=== PATIENT | male | born 1955 | race Caucasian/White ===

== ENCOUNTER 2018-04-07 08:07 | Outpatient (CLI) | payer BC, SELFPAY ==
[2018-04-07 09:18] LABS: Cholesterol 186 mg/dL (50-200); Glucose 139 mg/dL (70-100); HDL Cholesterol 60 mg/dL (40-60); LDL CHOLESTEROL 113 mg/dL (<100); TSH (W/Ref FT4) 3.32 uIU/mL (0.358-3.74); Triglyceride 106 mg/dL (30-150)
== END 2018-04-07 08:27 ==
PROVIDERS: PCP Family Medicine; Visit Provider Family Medicine
DX: R73.09 Other abnormal glucose (principal); E78.5 Hyperlipidemia, unspecified; E03.9 Hypothyroidism, unspecified
CPT/HCPCS: 36415; 80061; 82947; 83721; 84443

== ENCOUNTER 2018-07-14 09:15 | Outpatient (CLI) | payer BC, SELFPAY ==
[2018-07-14 10:19] LABS: Abs Immature Grans 0.02 k/cumm (0.0-0.09); Absolute Basophil Count 0.03 k/cumm (0.0-0.2); Absolute Eosinophil Count 0.07 k/cumm (0.0-0.7); Absolute Lymphocyte Count 1.11 k/cumm (1.2-3.4); Absolute Monocyte Count 0.36 k/cumm (0.11-0.7); Absolute Neutrophil Count 2.25 k/cumm (1.2-6.7); Basophils % 0.8; Eosinophils % 1.8; HCT 46.4 % (40.0-50.0); HGB 16.2 g/dL (13.5-17.5); Immature Grans % 0.5; Lymphocytes % 28.9; Mean Corp. HGB Concentration 34.9 g/dL (32.0-36.0); Mean Corpuscular Hemoglobin 31.4 pg (27.0-33.0); Mean Corpuscular Volume 89.9 fL (80-95); Mean Platelet Volume 11.1 fL (8.0-11.0); Monocytes % 9.4; Neutrophils % 58.6; Platelet Count 209 x1000/uL (130-400); RBC 5.16 m/cumm (4.50-6.00); RBC Distribution Width 13.3 % (11.8-14.1); White Blood Cell Count 3.84 k/cumm (4.4-10.8)
[2018-07-14 11:17] LABS: ESR 9 MM/HR (1-20)
== END 2018-07-14 09:35 ==
PROVIDERS: PCP Family Medicine; Visit Provider Family Medicine
DX: L04.9 Acute lymphadenitis, unspecified (principal)
CPT/HCPCS: 36415; 85652; 85025

== ENCOUNTER 2018-10-03 00:44 | Outpatient (CLI) | payer BC, SELFPAY ==
--- NOTE | 2018-10-03 14:20 | DI.MRI_ITS ---
SYMPTOMS/DIAGNOSIS: BACK PAIN, M54.9, NEW RIGHT MID TO LOWE BACK PAIN RADIATING AROUND TO FLANK MRI OF THE THORACIC SPINE: T1, T2, STIR and T2 3D sagittal and T2 axial sequences were performed. The cord signal is normal throughout. There are tiny central disc protrusions at T5-6, T6-7 and T7-8. There are small endplate osteophytes mainly projecting anterolaterally. There are facet degenerative changes. No significant central canal stenosis. There appears to be some neural foraminal narrowing secondary to facet encroachment at T6-7 and T7-8. No suspicious bony abnormalities are seen. There are a few small hemangiomas. IMPRESSION: Degenerative disc changes and facet degenerative changes with neural foraminal narrowing in the mid thoracic spine. No disc herniation is seen.
== END 2018-10-03 01:04 ==
PROVIDERS: PCP Family Medicine; Visit Provider Family Medicine
DX: M54.5 Low back pain (principal); M51.17 Intervertebral disc disorders with radiculopathy, lumbosacral region
CPT/HCPCS: 72146

== ENCOUNTER 2018-11-10 09:27 | Outpatient (CLI) | payer BC, SELFPAY ==
[2018-11-10 10:18] LABS: Abs Immature Grans 0.01 k/cumm (0.0-0.09); Absolute Basophil Count 0.04 k/cumm (0.0-0.2); Absolute Eosinophil Count 0.12 k/cumm (0.0-0.7); Absolute Lymphocyte Count 1.36 k/cumm (1.2-3.4); Absolute Monocyte Count 0.45 k/cumm (0.11-0.7); Absolute Neutrophil Count 2.92 k/cumm (1.2-6.7); Basophils % 0.8; Eosinophils % 2.4; HCT 48.6 % (40.0-50.0); HGB 17.2 g/dL (13.5-17.5); Immature Grans % 0.2; Lymphocytes % 27.8; Mean Corp. HGB Concentration 35.4 g/dL (32.0-36.0); Mean Corpuscular Hemoglobin 31.7 pg (27.0-33.0); Mean Corpuscular Volume 89.7 fL (80-95); Mean Platelet Volume 10.5 fL (8.0-11.0); Monocytes % 9.2; Neutrophils % 59.6; Platelet Count 195 x1000/uL (130-400); RBC 5.42 m/cumm (4.50-6.00); RBC Distribution Width 13.6 % (11.8-14.1)
== END 2018-11-10 09:47 ==
PROVIDERS: PCP Family Medicine; Visit Provider Family Medicine
DX: D72.819 Decreased white blood cell count, unspecified (principal)
CPT/HCPCS: 36415; 85025

== ENCOUNTER 2019-11-27 03:32 | Outpatient (CLI) | payer BC, SELFPAY ==
[2019-11-27 12:20] LABS: Hemoglobin A1C 5.5 % (3.8-5.6)
[2019-11-27 13:52] LABS: Anion Gap 7.6 mmol/L (3-11); BUN 16 mg/dL (7-18); CO2 30.4 mmol/L (21.0-32.0); CREATININE 1.03 mg/dL (0.70-1.30); Calcium 9.2 mg/dL (8.5-10.1); Chloride 104 mmol/L (98-107); Glucose 126 mg/dL (74-106); Potassium 5.2 mmol/L (3.5-5.1); Sodium 142 mmol/L (136-145)
== END 2019-11-27 03:52 ==
PROVIDERS: PCP Family Medicine; Visit Provider Family Medicine
DX: R73.03 Prediabetes (principal); Z00.00 Encounter for general adult medical examination without abnormal findings
CPT/HCPCS: 36415; 80048; 83036

== ENCOUNTER 2020-04-01 10:40 | Outpatient (REF) | payer BC, SELFPAY ==
[2020-04-01 20:53] LABS: Anion Gap 4.4 mmol/L (3-11); BUN 17 mg/dL (7-18); CO2 31.6 mmol/L (21.0-32.0); CREATININE 1.08 mg/dL (0.70-1.30); Calcium 9.1 mg/dL (8.5-10.1); Chloride 106 mmol/L (98-107); Glucose 130 mg/dL (74-106); Magnesium 1.8 mg/dL (1.8-2.4); Potassium 5.1 mmol/L (3.5-5.1); Sodium 142 mmol/L (136-145)
[2020-04-01 20:54] LABS: Hemoglobin A1C 5.8 % (<5.7)
[2020-04-01 21:51] LABS: Vitamin B12 278 pg/mL (193-986)
== END 2020-04-01 11:00 ==
LOC: NCHCN 10:40
PROVIDERS: PCP Family Medicine; Visit Provider Family Medicine
DX: E87.5 Hyperkalemia (principal); R73.03 Prediabetes; K21.9 Gastro-esophageal reflux disease without esophagitis
CPT/HCPCS: 80048; 82607; 83036; 83735

== ENCOUNTER 2020-04-18 22:33 | Outpatient (REF) | payer BC, SELFPAY | END 2020-04-18 22:53 | LOC: NCHCN 22:33 | PROVIDERS: PCP Family Medicine; Visit Provider Physician Assistant | DX: M79.671 Pain in right foot (principal); L08.9 Local infection of the skin and subcutaneous tissue, unspecified | CPT/HCPCS: 87077; 87070; 87205 ==

== ENCOUNTER 2020-05-08 03:59 | Emergency (ER) | payer BC, SELFPAY ==
--- NOTE | 2020-05-08 04:00 | DI.CT_ITS ---
EXAM: CT RENAL COLIC WO CLINICAL HISTORY: right flank pain. TECHNIQUE: Imaging Protocol: Axial computed tomography images with coronal and sagittal reformatted images were created and reviewed. CONTRAST MATERIAL: Noncontrast COMPARISON: CT ABD PELVIS WITH CONTRAST from 08/07/2012 FINDINGS: ABDOMEN: Lung Bases: Stable tiny nodule right lower lobe. Liver: Mildly enlarged. Hepatic steatosis.. No measurable mass. Gallbladder and biliary tract: No radiodense calculus or dilation. Pancreas: Normal density, no abnormal calcifications or inflammatory process. Spleen: Normal. Kidneys: Normal size, contour and axis. There is mild to moderate right hydronephrosis secondary to a tiny stone in the distal right ureter. No additional calculi are identified. No masses seen. Adrenal glands: No masses seen. Abdominal Aorta: Abdominal portion non-dilated. Mild atherosclerotic changes. PELVIS: Bladder: Nearly empty, no gross wall thickening. Bowel: No obstruction or bowel wall thickening. Scattered diverticula. Normal appendix. Peritoneal cavity: No ascites, collection or mesenteric inflammatory response. Bones: Degenerative changes in the spine greatest at L4-5 and L5-S1. Fatty containing bilateral inguinal hernias. IMPRESSION: Mild to moderate right hydronephrosis secondary to a 1-2 millimeter stone in the distal right ureter. RADIATION DOSE DELIVERED: 1,183.78mGy.cm Total DLP DATA REPOSITORY: All CT scans at this facility are submitted to the National Radiology Data Registry (NRDR) Dose Index Registry (DIR) with the [employer] (A[employer]). RADIATION OPTIMIZATION: All CT scans at this facility use at least one of these dose optimization te chniques: automated exposure control; mA and/or kV adjustment per patient size (includes targeted exa ms where dose is matched to clinical indication); or iterative reconstruction.
[2020-05-08 04:02] VITALS: BP 199/105; PULSE 55; RESP 20; TEMP 36.2; O2SAT 96
--- NOTE | 2020-05-08 04:06 | W.ED.GENAD ---
Discharge Plan Disposition Patient Disposition: HOME Condition: Good Discharge Details Clinical Impression: Calculus of right kidney, Esophageal thickening Primary Care Provider: Ilya Medina ED Provider: Danny Coles Home Meds and New Rx's Prescriptions: New tamsulosin [Flomax] 0.4 mg capsule 0.4 mg PO DAILY Qty: 7 RF: 0 Continued pravastatin 20 MG tablet 20 mg PO DAILY RF: 0 Combigan 5 ML drops 1 drp Ophthalmic Q12H PRN RF: 0 Discharge Instructions Instructions: Kidney Stones (ED) Additional Instructions: You have a 2 mm kidney stone. It is almost fully out. I expected to be out in a few hours. Please take 800 mg of ibuprofen and 1000 mg of Tylenol every 6 hours as needed for pain. Please take the Flomax until your pain returns. If you notice any worsening of your symptoms, or any new symptoms such as vomiting, diarrhea, fever, chills, shortness of breath, chest pain, numbness, weakness, or fainting , please return immediately to the emergency department for reevaluation. Please follow up with your primary care provider as soon as possible for reassessment and reevaluation. As always, it was a pleasure participating in your medical care today. Referrals: Ilya Medina [Primary Care Provider] - Medical Decision Making man with history of hypercholesterol, presents today for evaluation of right flank pain. 1-2 hours ago he awoke with sudden onset right flank pain that radiated to his groin. He describes it as a sharp. He denies any chest pain or shortness of breath. He denies any hematuria or dysuria.. He did have a bowel movement this did not change his symptoms overall. He denies any vomiting or diarrhea. He denies any history of kidney stones. He has no other complaints. Signs and symptoms are concerning for kidney stone. Will give morphine, gently rehydrate, CT scan for further assessment, monitor closely and reassess. 7:10 AM Patient's pain was resolved, he is feeling much better, CT scan shows a small 2 x 2 millimeter calculus notably distal, urinalysis shows no evidence of infection, laboratory work-up is benign, no white count bandemia or left shift or decrease in renal function. Patient feeling much better. He was given a dose of Flomax here. Patient appropriate for discharge for his kidney stone at this time. Of note CT scan does show wall thickening of the distal esophagus, I did discuss with the patient, and he does have a history of GERD. Likely peristalsis, however he denies any pain in that area currently. I did recommend to him follow-up with his family doctor for potential referral for EGD. Discussed red flags which to return. I have extensively reviewed the treatment plan and discharge instructions with the patient. I have addressed all patient concerns at this time. The patient was made aware of what symptoms to monitor for that would warrant a return to the emergency department. Discussed the plan with the patient, they demonstrate verbal understanding and agreement with our assessment and plan at this time. FINDINGS: Lungs: 4 mm nodule inferolaterally in right lower lobe. Mediastinal space: Thickening of wall in distal esophagus. Liver: Normal. No mass. Gallbladder and bile ducts: Normal. No calcified stones. No ductal dilation. Pancreas: Normal. No ductal dilation. Spleen: Normal. No splenomegaly. Adrenal glands: Normal. No mass. Kidneys and ureters: 2 mm radiopaque calculus in distal right ureter. No radiopaque renal calculi. Mild to moderate right hydronephrosis.There is bilateral perinephric stranding which is nonspecific. Stomach and bowel: Unremarkable. No obstruction. No mucosal thickening. Scattered colonic diverticula. Appendix: Normal appendix Intraperitoneal space: No free intraperitoneal gas. Vasculature: Unremarkable. No abdominal aortic aneurysm. Lymph nodes: No adenopathy. Urinary bladder: Unremarkable as visualized. Reproductive: Unremarkable as visualized. Bones/joints: The spine demonstrates mild degenerative changes at multiple levels. Soft tissues: Inguinal canals are distended with fat. IMPRESSION: 1. Obstructing calculus in distal right ureter. 2. Wall thickening distal esophagus which could be due to peristalsis at the time of scan, diffuse infiltrating process, inflammation or infection. Follow-up recommended. Thank you for allowing us to participate in the care of your patient. Dictated and Authenticated by: Hao Dozier DO 05/08/2020 5:17 AM Eastern Time ([place] & [place]) HPI General Date/Time Provider Initiated Documentation: 05/08/20 04:01. HPI Narrative: man with history of hypercholesterol, presents today for evaluation of right flank pain. 1-2 hours ago he awoke with sudden onset right flank pain that radiated to his groin. He describes it as a sharp. He denies any chest pain or shortness of breath. He denies any hematuria or dysuria.. He did have a bowel movement this did not change his symptoms overall. He denies any vomiting or diarrhea. He denies any history of kidney stones. He has no other complaints. Related Data Home Medications Medication Instructions Recorded Confirmed Combigan 1 drp OPHTHALMIC Q12H PRN drp 01/13/15 05/08/20 pravastatin 20 mg PO DAILY tab-cap 01/13/15 05/08/20 tamsulosin [Flomax] 0.4 mg PO DAILY #7 cap 05/08/20 Previous Rx's Medication Instructions Recorded tamsulosin [Flomax] 0.4 mg PO DAILY #7 cap 05/08/20 Allergies Allergy/AdvReac Type Severity Reaction Status Date / Time No Known Drug Allergies Allergy Unverified 05/08/20 04:06 Review of Systems All systems reviewed & are unremarkable except as noted in HPI and below PFSH Social History Smoking risk assessment performed?: No Alcohol Intake: never Substance use type: does not use Do you feel safe at home: Yes Do you feel safe in your relationship?: Yes Exam Narrative Exam Narrative: 1.Const: Well-nourished, Well-developed, appearing stated age 2.Eyes: PERRL, no conjunctival injection, and symmetrical lids. 3.ENT: Atraumatic external nose and ears. Moist MM. Neck: Symmetric, trachea midline, No thyromegaly. 4.CVS: +S1/S2, No murmurs or gallops. Peripheral pulses 2+ and equal in all extremities. Brisk capillary refill in all extremities. 5.RESP: Unlabored respiratory effort. Clear to auscultation bilaterally. No wheezes rales or rhonchi 6.GI: Soft, Nontender/Nondistended, No hepatosplenomegaly. No guarding or rebound. No signs of an acute surgical abdomen. No worsening of pain with right CVA with palpation. Genital exam was performed, no genital tenderness or signs of testicular torsion. 7.MSK: Normocephalic/Atraumatic, Extremities w/o deformity or ttp No cyanosis or clubbing, Normal movement of all extremities 8.Skin: Warm, Dry. No rashes or lesions. 9.Neuro: crystal gazer II-XII grossly intact. Sensation grossly intact, no focal neurologic deficits. 10.Psych: (AAO) x3. Appropriate mood and affect
[2020-05-08] MEDS: Normal Saline 500 ML IV ×2 (04:14→05:44)
[2020-05-08] MEDS: Tamsulosin 0.4 MG CAPCR PO (04:14)
[2020-05-08 04:19] LABS: Abs Immature Grans 0.07 10^3/uL (0.0-0.06); Absolute Basophil Count 0.07 10^3/uL (0.0-0.2); Absolute Eosinophil Count 0.26 10^3/uL (0.0-0.7); Absolute Lymphocyte Count 3.27 10^3/uL (1.2-3.4); Absolute Monocyte Count 0.84 10^3/uL (0.1-0.8); Absolute Neutrophil Count 3.51 10^3/uL (1.2-6.7); Basophils % 0.9; Eosinophils % 3.2; HCT 46.5 % (40.0-50.0); HGB 16.6 g/dL (13.5-17.5); Immature Grans % 0.9; Lymphocytes % 40.8; MCH 32.3 pg (27.0-33.0); MCHC 35.7 % (32.0-36.0); MCV 90.5 fL (80-95); MPV 10.3 fL (8.0-11.0); Monocytes % 10.5; Neutrophils % 43.7; Nucleated RBC 0 %; Platelet Count 240 10^3/uL (130-400); RBC 5.14 10^6/uL (4.36-5.78); RDW 12.3 % (11.8-14.1); RDW-SD 40.2 fL; WBC 8.02 10^3/uL (4.4-10.8)
[2020-05-08 04:30] LABS: ALT 39 U/L (16-63); AST 20 U/L (15-37); Albumin 3.8 g/dL (3.4-5.0); Alkaline Phosphatase 96 U/L (46-116); BUN 16 mg/dL (7-18); Bilirubin, Total 0.8 mg/dL (0.2-1.0); CREATININE 1.28 mg/dL (0.70-1.30); Calcium 8.6 mg/dL (8.5-10.1); Chloride 105 mmol/L (98-107); Estimated GFR 56.76 (mL/min/1.73m2); Glucose 161 mg/dL (74-106); Potassium 3.8 mmol/L (3.5-5.1); Sodium 143 mmol/L (136-145); Total Protein 6.9 g/dL (6.4-8.2)
[2020-05-08] MEDS: HYDROmorphone 2 MG/ML VIAL 1 MG IVP ×3 (04:45→07:21)
[2020-05-08] MEDS: Ondansetron 4 MG/2 ML VIAL IVP (04:45)
[2020-05-08] MEDS: Ketorolac 30 MG/ML VIAL IVP (05:06)
--- NOTE | 2020-05-08 05:17 | DI.VRAD_ITS ---
Addendum created by Hao Dozier DO on 05/08/2020 5:20:10 AM EST: Noted but not mentioned in initial report, there is a 1 cm fat attenuation lesion anteriorly in right interpolar cortex consistent with an angiomyolipoma. Initial report created on 05/08/2020 5:17:32 AM EST: PROCEDURE INFORMATION: Exam: CT Abdomen And Pelvis Without Contrast Exam date and time: 05/08/2020 4:07 AM Age: 64 years old Clinical indication: Abdominal pain; Patient HX: Right flank pain TECHNIQUE: Imaging protocol: Computed tomography of the abdomen and pelvis without contrast. COMPARISON: US ABDOMEN ULTRASOUND (P) 02/05/2014 3:27 PM FINDINGS: Lungs: 4 mm nodule inferolaterally in right lower lobe. Mediastinal space: Thickening of wall in distal esophagus. Liver: Normal. No mass. Gallbladder and bile ducts: Normal. No calcified stones. No ductal dilation. Pancreas: Normal. No ductal dilation. Spleen: Normal. No splenomegaly. Adrenal glands: Normal. No mass. Kidneys and ureters: 2 mm radiopaque calculus in distal right ureter. No radiopaque renal calculi. Mild to moderate right hydronephrosis.There is bilateral perinephric stranding which is nonspecific. Stomach and bowel: Unremarkable. No obstruction. No mucosal thickening. Scattered colonic diverticula. Appendix: Normal appendix. Intraperitoneal space: No free intraperitoneal gas. Vasculature: Unremarkable. No abdominal aortic aneurysm. Lymph nodes: No adenopathy. Urinary bladder: Unremarkable as visualized. Reproductive: Unremarkable as visualized. Bones/joints: The spine demonstrates mild degenerative changes at multiple levels. Soft tissues: Inguinal canals are distended with fat. IMPRESSION: 1. Obstructing calculus in distal right ureter. 2. Wall thickening distal esophagus which could be due to peristalsis at the time of scan, diffuse infiltrating process, inflammation or infection. Follow-up recommended. Dictated and Authenticated by: Hao Dozier MD. Ordering:GLENN Delgado MD
[2020-05-08 05:44] VITALS: BP 144/84; PULSE 64; RESP 16; O2SAT 100
[2020-05-08 06:45] LABS: Bilirubin Negative (Negative); Blood Large (Negative); Clarity Cloudy (Clear); Glucose 250 mg/dL (Negative); Ketones Negative (Negative); Leukocyte Esterase Negative (Negative); Nitrite Negative (Negative); Specific Gravity >= 1.030 (1.005-1.025); Urobilinogen 0.2 EU/dL (Up TO 0.2); pH 5.5 (5-8)
--- NOTE | 2020-05-08 06:47 | NUR.NOTE ---
Nursing Note: Urine sample obtained from patient and strained. No stone present. Patient reporting pain returned. Dr Coles notified. Will wait to see if pain subsides on its own at this time. Warm blanket provided to patient to apply to right flank area to see if that helps. Encouraged patient to also try and void more in attempt to pass stone.
[2020-05-08 07:02] LABS: Bacteria Moderate HPF (Negative); C & S Indicated? No; Casts Negative LPF (Negative); Crystals Moderate Amorphous HPF (Negative); Epithelial Cells Negative HPF (Negative); Mucus Negative (Negative); Other Cells Moderate Renal (Negative); RBC >50 HPF (0-2); WBC Negative HPF (0-5)
[2020-05-08 07:18] VITALS: BP 178/100; PULSE 67; RESP 22; TEMP 36.1; O2SAT 98
[2020-05-08 07:42] VITALS: BP 152/93; PULSE 61; RESP 20; TEMP 36.4; O2SAT 96
[2020-05-08 07:50] VITALS: BP 152/93; PULSE 61; RESP 20; TEMP 36.4; O2SAT 96
== END 2020-05-08 07:59 | disposition home or self-care (01) ==
LOC: ER 06:25
PROVIDERS: Emergency Provider Student in an Organized Health Care Education/Training Program; PCP Family Medicine
DX: N13.2 Hydronephrosis with renal and ureteral calculous obstruction (principal); R93.3 Abnormal findings on diagnostic imaging of other parts of digestive tract
CPT/HCPCS: 36415; 80053; 96361; 99284; 74176; 81003; 81015; 85025; J1885; J2405

== ENCOUNTER 2020-05-10 08:45 | Emergency (ER) | payer BC, SELFPAY ==
[2020-05-10 08:49] VITALS: BP 186/107; PULSE 71; RESP 20; TEMP 36.4; O2SAT 97
--- NOTE | 2020-05-10 08:50 | ED.GENADUL_ITS ---
Discharge Plan Disposition Patient Disposition: HOME Condition: Stable Discharge Details Clinical Impression: Right ureteral stone Primary Care Provider: Ilya Medina ED Provider: Kiley Diaz Home Meds and New Rx's Prescriptions: New tramadol 50 mg tablet 50 mg PO TID PRN (Reason: pain) Qty: 7 RF: 0 tamsulosin [Flomax] 0.4 mg capsule 0.4 mg PO DAILY Qty: 7 RF: 0 Continued pravastatin 20 MG tablet 20 mg PO DAILY RF: 0 Combigan 5 ML drops 1 drp Ophthalmic Q12H PRN RF: 0 tamsulosin [Flomax] 0.4 mg capsule 0.4 mg PO DAILY Qty: 7 RF: 0 ibuprofen 800 mg Tablet 800 mg PO Q6H PRNRF: 0 acetaminophen 500 mg Tablet 1,000 mg PO Q6H PRNRF: 0 Discharge Instructions Instructions: Ureteral Stones (ED) Additional Instructions: Stop taking NSAIDs such as Aleve, Advil or ibuprofen for now as this can affect your kidney function. Take Tylenol as needed and directed for pain. Take tramadol for pain not relieved with Tylenol. Take the Flomax daily as directed. You can try [id number] stool softeners for your constipation. Drink plenty of fluids and get plenty of rest. You will receive a call later today from Dr. Dyson's urology office regarding a possible plan for surgical removal of your kidney stone if you do not pass it soon. Return immediately to the emergency department if you develop any worsening or new concerning symptoms. Referrals: Ervin Dyson MD [ [facility]FF PHYSICIAN] - Discharge Data Discharge Physician: Kiley Diaz Medical Decision Making [id number] -- 64-year-old male with a history of hypertension, hyperlipidemia, sleep apnea, anxiety, morbid obesity with recently diagnosed 1 to 2 mm right distal ureteral stone presents with persistent pain and stating he has not yet passed the stone Patient appears comfortable. States his pain is currently 2/10. Blood pressure hypertensive. No CVA tenderness. Abdomen soft and nontender. Normal exam. We will place an IV, check screening labs, urinalysis, give IV fluids and IV Tylenol. Case discussed with Dr. Dyson -agrees with plan for holding on repeat imaging and radiation exposure at this time. If work-up negative, agrees with plan for discharge and urology office for follow-up with him later today. Recommends continued Flomax for 1 week. 0940 --labs reviewed. Normal white blood cell count. Creatinine 1.95 and GFR 34 which is diminished compared to previous. Urinalysis notes blood but no evidence of infection. Patient reassessed and still says his pain is 2/10 but he appears uncomfortable. Case discussed again with Dr. Dyson who recommends holding NSAIDs and to try tramadol. 1 dose of tramadol given here as well as for home. Patient feels okay to go home. He is advised to use [id number]-[id number] stool softeners for his constipation which likely may be related to the dose of narc otic 2 days ago. As he has no fever or vomiting or abdominal tenderness, presentation not consistent with bowel obstruction at this time. Usual and customary return precautions given prior to discharge. Medical Records Medical records reviewed: Yes I reviewed the patient's medical records. Lab Data Lab results reviewed: Yes I reviewed the patient's lab results. Labs: Laboratory Tests Range/Units 05/10/20 05/10/20 05/10/20 08:55 09:00 09:00 WBC (4.4-10.8) 10^3/uL 8.17 RBC (4.36-5.78) 10^6/uL 5.05 Hgb (13.5-17.5) g/dL 16.2 Hct (40.0-50.0) % 46.0 MCV (80-95) fL 91.1 MCH (27.0-33.0) pg 32.1 MCHC (32.0-36.0) % 35.2 RDW (11.8-14.1) % 12.2 Plt Count (130-400) 10^3/uL 163 MPV (8.0-11.0) fL 10.3 Immature Gran % 0.2 Neutrophils % 80.3 Lymphocytes % 11.0 Monocytes % 6.9 Eosinophils % 1.2 Basophils % 0.4 Nucleated RBC % % 0 Absolute Neutrophils (1.2-6.7) 10^3/uL 6.56 Absolute Lymphocytes (1.2-3.4) 10^3/uL 0.90 L Absolute Monocytes (0.1-0.8) 10^3/uL 0.56 Absolute Eosinophils (0.0-0.7) 10^3/uL 0.10 Absolute Basophils (0.0-0.2) 10^3/uL 0.03 Sodium (136-145) mmol/L 137 Potassium (3.5-5.1) mmol/L 4.4 Chloride (98-107) mmol/L 102 Carbon Dioxide (21.0-32.0) mmol/L 29.5 Anion Gap (3-11) mmol/L 5.5 BUN (7-18) mg/dL 23 H Creatinine (0.70-1.30) mg/dL 1.95 H Estimated GFR/1.73 m2 (mL/min/1.73m2) 34.92 Glucose (74-106) mg/dL 169 H Calcium (8.5-10.1) mg/dL 9.1 Total Bilirubin (0.2-1.0) mg/dL 1.3 H AST (15-37) U/L 19 ALT (16-63) U/L 31 Alkaline Phosphatase (46-116) U/L 72 Total Protein (6.4-8.2) g/dL 7.2 Albumin (3.4-5.0) g/dL 3.7 Urine Color (Yellow) Yellow Urine Clarity (Clear) Clear Urine pH (5-8) 6.0 Ur Specific Daisy (1.005-1.025) 1.020 Urine Protein (Negative) mg/dL Negative Urine Ketones (Negative) mg/dL Negative Urine Blood (Negative) Trace-intact H Urine Nitrite (Negative) Negative Urine Bilirubin (Negative) Negative Urine Urobilinogen (Up TO 0.2) EU/dL 0.2 Ur Leukocyte Esterase (Negative) Negative Urine RBC (0-2) HPF 5-10 H Urine WBC (0-5) HPF Negative Ur Epithelial Cells (Negative) HPF Negative Urine Crystals (Negative) HPF Negative Urine Bacteria (Negative) HPF Negative Urine Casts (Negative) LPF Negative Urine Mucus (Negative) Negative Ur Culture Indicated? No Urine Glucose (Negative) mg/dL 500 H HPI General Mode of arrival: ambulatory . Date/Time Provider Initiated Documentation: 05/10/20 08:48 . Limitations to Documentation: no limitations . Information obtained by: patient . HPI Narrative: Patient is a 64-year-old male with a history of hypertension, hyperlipidemia, anxiety, morbid obesity, obstructive sleep apnea and recently diagnosed kidney stone who presents with persistent flank pain. Patient seen here 2 days ago for flank pain and diagnosed with a 1 to 2 mm right distal ureteral stone. Patient presents today with continued pain and states he has not yet passed his stone. He states he has been taking 1000 mg of Tylenol and 800 mg of ibuprofen every 6 hours. He states his last dose of these medications was 4 hours ago. He states the pain initially started 2 days ago and awoke him from sleep with right flank pain. He presented to the ER at that time and was diagnosed with a kidney stone. He states he has been taking the Flomax daily. He states he has not had a bowel movement since his visit here Saturday. He denies any fever, nausea, vomiting, hematuria. Related Data Home Medications Medication Instructions Recorded Confirmed Combigan 1 drp OPHTHALMIC Q12H PRN drp 01/13/15 05/10/20 pravastatin 20 mg PO DAILY tab-cap 01/13/15 05/10/20 tamsulosin [Flomax] 0.4 mg PO DAILY #7 cap 05/08/20 05/10/20 acetaminophen 1,000 mg PO Q6H PRN 05/10/20 05/10/20 ibuprofen 800 mg PO Q6H PRN 05/10/20 05/10/20 tamsulosin [Flomax] 0.4 mg PO DAILY #7 cap 05/10/20 tramadol 50 mg PO TID PRN #7 tab 05/10/20 Previous Rx's Medication Instructions Recorded tamsulosin [Flomax] 0.4 mg PO DAILY #7 cap 05/08/20 tamsulosin [Flomax] 0.4 mg PO DAILY #7 cap 05/10/20 tramadol 50 mg PO TID PRN #7 tab 05/10/20 Allergies Allergy/AdvReac Type Severity Reaction Status Date / Time No Known Drug Allergies Allergy Unverified 05/08/20 04:06 General JUSTINO: 3 Review of Systems All systems reviewed & are unremarkable except as noted in HPI and below Constitutional Constitutional: Reports as per HPI, Denies chills and Denies fever(s) Eyes Eyes: Denies blurry vision ENT Ears, Nose, Mouth, and Throat: Denies dizziness, Denies sore throat and Denies throat swelling Cardiovascular Cardiovascular: Denies chest pain and Denies dyspnea Respiratory Respiratory: Denies cough and Denies dyspnea Gastrointestinal Gastrointestinal: Reports abdominal pain, Denies diarrhea and Denies vomiting Genitourinary Genitourinary: Denies hematuria, Denies dysuria and Reports flank pain Musculoskeletal Musculoskeletal: Denies back pain and Denies numbness Integumentary/Breasts Skin/Breast: Denies lesions and Denies rash Neurologic Neurologic: Denies dizziness, Denies localized weakness and Denies numbness Allergic/Immunologic Allergic/Immunologic: Denies throat swelling PFSH Medical History (Updated 05/10/20 @ 09:22 by Kiley Diaz DO) Anxiety Glaucoma High cholesterol HTN (hypertension) Obstructive sleep apnea Surgical History (Updated 05/10/20 @ 08:56 by Kiley Diaz DO) History of mastoidectomy History of tonsillectomy and adenoidectomy Social History Smoking risk assessment performed?: No Alcohol Intake: never Substance use type: does not use Do you feel safe at home: Yes Do you feel safe in your relationship?: Yes Exam Const General: cooperative, healthy appearing and no acute distress HENMT Head: normal to inspection Face and sinus: normal facial exam Eyes General: appearance normal, both eyes and all related structures EOM: EOM intact bilaterally Neck Neck: normal visual inspection and No submandibular swelling Lymphatic: no lymphadenopathy noted Chest Chest: normal inspection of the chest and no tenderness Resp Effort & Inspection: normal respiratory effort and able to speak in complete sentences Auscultation: clear to auscultation bilaterally Cardio Rate: regular rate Rhythm: regular rhythm GI Inspection: normal to inspection and obesity Palpation: soft, not firm, not rigid and nontender Auscultation: normal bowel sounds Male General Exam: Yes normal external exam Scrotum: scrotum normal Skin General skin exam: no rashes or lesions noted Neuro General: patient alert, patient awake and patient oriented x3 Cognition: normal cognition Speech: speech normal Motor: muscle tone normal throughout Sensory Exam: no sensory deficits noted Extrem General: normal to inspection, full ROM, capillary refill normal, no calf tenderness bilaterally and no edema Psych Appearance: grossly normal Mental Status: mental status grossly normal Speech and Movement: speech and movement normal Affect: normal affect
--- OUTSIDE RECORDS SUMMARY | 2020-05-10 08:55 | XMS_ITS | Encounter Summary ---
:1955 Author Care Team Providers Name Role Phone [facility] Medical Records Primary Care Provider [phone] Ilya Medina MD ([facility]) Primary Care Provider [phone] [facility] OTHER [phone] Karri Trinidad MD Summer Internship [phone] Reason for Visit None recorded. Assessment and Plan 1. Obstructive sleep apnea syndr ome SARITA diagnosed in 2011 with an AHI of 20.7/hr. He is using CPAP 9-15 cm and has excellent compliance and reduction in AHI. He continues to benefit with elimination of snoring, more sound sleep and essentially elimination of daytime s leepiness. 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 Continued use of CPAP is recommended. He is encouraged to keep up with the routine mainte nance of the machine and to clean and re place parts as indicated. I will see him back in one year. He is asked to call the clinic for any sleep related questions or concerns. I provided greater than 25 minutes in e care of this patient, more than half the time was spent in [id number] counseling. Discussion Note: None recorded.Patient educational handouts: No information available. Plan of Care Reminders Provider Appointments Return to on or around Cristiano Harris, Office 03/01/2021 MATERIAL FLOW ANALYST Lab None ? ? recorded. Referral None ? ? recorded. Procedures None ? ? recorded. Surgeries None ? ? recorded. Imaging None ? ? recorded. Medications Name Start Date ? ? AcipHex 20 mg tablet,delayed release ? Take 1 tablet every day by oral route. atorvastatin 10 mg tablet ? Take 1 tablet every day by oral route. Combigan 0.2 %-0.5 % eye drops ? Instill 1 drop every 12 hours by ophthalmic route. fluoxetine 90 mg capsule,delayed release ? Take 1 capsule by oral route. Medications Administered None recorded. Vitals Height Weight BMI Blood Pressure 5 ft 10 in 239.8 lbs 34.4 kg/m2 130/70 mm[Hg] Results Lab Results None recorded. Allergies Code Code System Name Reaction Severity Onset NKDA ? ? ? Problems Name Status Onset Date Source ? Subclinical Hypothyroidism Active 06/16/2018 ? Hyperlipidemia Active 06/16/2018 ? Obesity Active 06/16/2018 ? Mixed Anxiety and Depressive Disorder Active 06/16/2018 ? Obstructive Sleep Apnea Syndrome Active 06/16/2018 ? Glaucoma Active 06/16/2018 ? Chronic Mastoiditis Active 06/16/2018 ? Raynaud's Phenomenon Active 06/16/2018 ? Mass of Parotid Gland Active 06/16/2018 ? Gastroesophageal Reflux Disease Active 06/16/2018 ? Osteoarthritis Active 06/16/2018 ? Headache Active 06/16/2018 ? Loose Stool Active 06/16/2018 ? Prediabetes Active 06/16/2018 ? Procedures None recorded. Vaccine List None recorded. Social History Tobacco Smoking Status Never Smoker Alcohol intake None Notes: very rarel y Live alone or with others? with others Animal exposure? Y Notes: dog Are you currently employed? Y Smokeless Tobacco Status Never used smokeless tobacco Blind or serious difficulty Y Notes: co rrective lenses seeing Language Difficulties No Chewing tobacco none Most Recent Tobacco Use 11/25/2018 Screening Hard of hearing or deaf in one Y Notes: both or both ears? Caffeine intake Occasional Notes: coffee 3 c ups weekly Functional Status Blind or serious Yes difficulty seeing? Past Encounters 03/01/2020 Obstructive Sleep Apnea Syndrome Pina Harris MATERIAL FLOW ANALYST: [address] [place] [phone], Ph. History of Present Illness Note: <p>Suman Warner comes in for SARITA follow-up.
</p><p>
</p><p>Suman was last seen by me on 01/29/19. 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 He had a PSG 07/20/11 (BMI 37.9), AHI 20.7/hr, REM AHI 52.6/hr, 02 kristi 87%, PLMi 1.6/hr. Titration 08/31/11 (BMI 37.6), BiPAP18/14 cm was successful including in REM sleep, no supine REM seen. PLMi 6.7/hr, PLMai 0.9/hr. BiPAP20/11/4 cm recommended. At his last visit he was using CPAP 11-16 cm with good compliance and reduction in AHI. Dry mouth persisted despite new CPAP, increased humidity and Act. I lowered pressure to 9-15 cm based on weight loss and dry mouth.</p><p>
</p><p>Suman tells me he is using his CPAP every night. He goes to bed around 11 pm and watches TV, when lights are hefalls asleep quickly. He wakes up after 3-4 hours to urinate and can generally get back to sleep without difficulty. He gets up at 7:30 am to start his day. He is not napping, he is not snoring, he denies nocturnal choking/gasping, no night sweats. He rarely wakes with a headache and prior to CPAP he would wake with headaches 5/week. 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 He is changing out supplies PRN. He did not have any dry mouth during the summer but the past couple of weeks he has started to wake with dry mouth. </p& gt;<p>
</p><p>
</p><p>ESS today 06/05</p><p>
</p><p>COMPLIANCE REVIEW: from CPAP directly: used 30/30 days, ave 7.5 hours/night, 95 th percentile pressure 13.6 cm, leak 37 lpm, AHI 1.9/hr. </p>Review of Systems: ROS as noted in the HPI Review of Systems None recorded. Physical Exam ? Notes: <p>General: A&O, well groome d {{over weight obese * morbidly obese normal weight thin}}.
HEAD: no rmocephalic & atraumatic.
EYES: non icteric.
LUNGS: CTA all f ields. Good air movement.
CARDIO: RRR without murmur, gallop or thrill.
NEURO: A&O. Normal gait.
PSYCH: Normal mood and affect.
CUTANEOUS: no overt lesions or rashes</p>
--- OUTSIDE RECORDS SUMMARY | 2020-05-10 08:55 | XMS_ITS ---
:1955 Author Care Team Providers Name Role Phone [facility] MEDICAL RECORDS Primary Care Provider [phone] IMANI MAYFIELD MD ([facility]) Primary Care Provider [phone] DIDIER MONCADA MD Process Improvement Specialist [phone] [facility] OTHER [phone] Allergies Code Code System Name Reaction Severity Status Onset NKDA ? Medications Name Status Start Date Stop Date ? ? AcipHex 20 mg tablet,delayed release Active ? Not available Take 1 tablet every day by oral route. atorvastatin 10 mg tablet Active ? Not av ailable Take 1 tablet every day by oral route. Combigan 0.2 %-0.5 % eye drops Active ? N ot available Instill 1 drop every 12 hours by ophthalmic route. fluoxetine 90 mg capsule,delayed release Active ? Not available Take 1 capsule by oral route. Problems Name Status Onset Date Source ? [...] Prediabetes Active 06/16/2018 ? Procedures None recorded. Results Lab Results None recorded. Past Encounters 03/01/2020 Obstructive Sleep Apnea Syndrome Pina Harris CLINICAL PRACTITIONER: [address] [place] [phone], Ph. 01/29/2019 Obstructive Sleep Apnea Syndrome Pina Harris CLINICAL PRACTITIONER: [address] [place] [phone], Ph. 11/25/2018 Obstructive Sleep Apnea Syndrome Pina Harris, CLINICAL PRACTITIONER: [address] [place] [phone], Ph. Social History Tobacco Smoking Status Never Smoker Vaccine List None recorded. Plan of Care Reminders Provider Appointments None ? ? recorded. Lab None ? ? recorded. Referral None ? ? recorded. Procedures None ? ? recorded. Surgeries None ? ? recorded. Imaging None ? ? recorded. Vitals 03/01/2020 01:15PM Office 30 Height Weight BMI Blood Pressure 177.8 cm 108.77 kg 34.4 kg/m2 130/70 mm[Hg] 01/29/2019 08:00AM Office 30 Height Weight BMI Blood Pressure 177.8 cm 97.16 kg 30.7 kg/m2 140/80 mm[Hg] 11/25/2018 08:30AM Office 30 Height Weight BMI Blood Pressure 177.8 cm 100.15 kg 31.7 kg/m2 130/82 mm[Hg] 08/25/2018 10:15AM Office 30 Height Weight BMI Blood Pressure 177.8 cm 103.06 kg 32.6 kg/m2 120/74 mm[Hg] 06/23/2018 10:15AM New Patient 45 Height Weight BMI Blood Pressure 177.8 cm 111.58 kg 35.3 kg/m2 118/74 mm[Hg]
[2020-05-10 09:09] LABS: Abs Immature Grans 0.02 10^3/uL (0.0-0.06); Absolute Basophil Count 0.03 10^3/uL (0.0-0.2); Absolute Monocyte Count 0.56 10^3/uL (0.1-0.8); Absolute Neutrophil Count 6.56 10^3/uL (1.2-6.7); Basophils % 0.4; Eosinophils % 1.2; HGB 16.2 g/dL (13.5-17.5); Immature Grans % 0.2; MCH 32.1 pg (27.0-33.0); MCHC 35.2 % (32.0-36.0); MCV 91.1 fL (80-95); MPV 10.3 fL (8.0-11.0); Monocytes % 6.9; Neutrophils % 80.3; Nucleated RBC 0 %; Platelet Count 163 10^3/uL (130-400); RBC 5.05 10^6/uL (4.36-5.78); RDW 12.2 % (11.8-14.1); RDW-SD 40.4 fL; WBC 8.17 10^3/uL (4.4-10.8)
[2020-05-10 09:13] LABS: Bilirubin Negative (Negative); Blood Trace-intact (Negative); Clarity Clear (Clear); Glucose 500 mg/dL (Negative); Ketones Negative (Negative); Leukocyte Esterase Negative (Negative); Nitrite Negative (Negative); Urobilinogen 0.2 EU/dL (Up TO 0.2)
[2020-05-10] MEDS: ACETAMINOPHEN 1,000 MG/100 ML BTL 400 MG IVPB (09:24)
[2020-05-10] MEDS: Normal Saline 1,000 ML 1000 ML IV (09:24)
[2020-05-10] MEDS: Normal Saline Flush 10 ML SYR IVP (09:25)
[2020-05-10 09:27] LABS: Bacteria Negative HPF (Negative); C & S Indicated? No; Casts Negative LPF (Negative); Crystals Negative HPF (Negative); Epithelial Cells Negative HPF (Negative); Mucus Negative (Negative); WBC Negative HPF (0-5)
[2020-05-10 09:31] LABS: ALT 31 U/L (16-63); AST 19 U/L (15-37); Albumin 3.7 g/dL (3.4-5.0); Alkaline Phosphatase 72 U/L (46-116); Anion Gap 5.5 mmol/L (3-11); BUN 23 mg/dL (7-18); Bilirubin, Total 1.3 mg/dL (0.2-1.0); CO2 29.5 mmol/L (21.0-32.0); CREATININE 1.95 mg/dL (0.70-1.30); Calcium 9.1 mg/dL (8.5-10.1); Chloride 102 mmol/L (98-107); Estimated GFR 34.92 (mL/min/1.73m2); Glucose 169 mg/dL (74-106); Potassium 4.4 mmol/L (3.5-5.1); Sodium 137 mmol/L (136-145); Total Protein 7.2 g/dL (6.4-8.2)
[2020-05-10 10:03] VITALS: BP 177/95; PULSE 64; RESP 18; O2SAT 98
[2020-05-10] MEDS: traMADol 50 MG TAB PO (10:05)
== END 2020-05-10 10:16 | disposition home or self-care (01) ==
PROVIDERS: Emergency Provider Physician Assistant; PCP Family Medicine
DX: N20.1 Calculus of ureter (principal); I10 Essential (primary) hypertension
CPT/HCPCS: 36415; 80053; 96361; 96365; 99284; 81003; 81015; 85025; J0131

== ENCOUNTER 2020-05-17 18:17 | Outpatient (REF) | payer OTHER, SELFPAY ==
[2020-05-19 22:47] LABS: Source: Passed Stone
== END 2020-05-17 18:37 ==
LOC: LBN 18:17
PROVIDERS: PCP Family Medicine; Visit Provider Nurse Practitioner Gerontology
DX: N20.0 Calculus of kidney (principal); N20.1 Calculus of ureter
CPT/HCPCS: 82365

== ENCOUNTER 2020-05-30 20:03 | Outpatient (REF) | payer OTHER, SELFPAY ==
[2020-05-31 17:32] LABS: PSA, Screening 0.6 ng/mL (0.0-4.5)
== END 2020-05-30 20:23 ==
LOC: LBN 20:03
PROVIDERS: PCP Family Medicine; Visit Provider Nurse Practitioner Gerontology
DX: N40.1 Benign prostatic hyperplasia with lower urinary tract symptoms (principal); N13.8 Other obstructive and reflux uropathy
CPT/HCPCS: 84153

== ENCOUNTER 2020-06-15 02:19 | Outpatient (CLI) | payer OTHER, SELFPAY ==
--- NOTE | 2020-06-15 07:30 | DI.US_ITS ---
EXAM: US RENAL CLINICAL HISTORY: monitoring hydro,RT URETERAL STONE,N20.1,N13.30. TECHNIQUE: James scale, color and spectral Doppler were used. COMPARISON: US ABDOMEN ULTRASOUND (P) from 02/05/2014 FINDINGS: Renal size in cm: Right: 10.7. Left: 11.6. Echogenicity: Normal. Hydronephrosis: No. Cyst or mass: There is again seen around echogenic mass in the right kidney measuring 1.7 x 1.2 x 1.5 cm. Sonographically it is most suggestive of an angiomyolipoma. This was present on the prior exam ination dated 02/05/2014 Nephrolithiasis: No. Other findings: None. Bladder:Normal. Ureteral jets: Right: Visualized and unremarkable. Left: Visualized and unremarkable. Prevoid vol:29 cc Postvoid vol:The patient was unable to void during the examination. Prostate: 21 cc Renal color flow: Symmetric and within normal limits. IMPRESSION: 1. No evidence of nephrolithiasis or hydronephrosis. 2. Stable echogenic mass in the right kidney most suggestive of an angiomyolipoma. DATA REPOSITORY:
== END 2020-06-15 02:20 | disposition home or self-care (01) ==
LOC: DI 02:19
PROVIDERS: PCP Family Medicine; Visit Provider Nurse Practitioner Gerontology
DX: N20.1 Calculus of ureter (principal); N28.89 Other specified disorders of kidney and ureter
CPT/HCPCS: 76770

== ENCOUNTER 2020-09-09 19:19 | Outpatient (REF) | payer OTHER, SELFPAY | END 2020-09-09 19:20 | disposition home or self-care (01) | LOC: LBN 19:19 | PROVIDERS: PCP Family Medicine; Visit Provider Otolaryngology | DX: H70.92 Unspecified mastoiditis, left ear (principal) | CPT/HCPCS: 87077; 87070; 87186 ==

== ENCOUNTER 2020-09-12 19:53 | Outpatient (REF) | payer OTHER, SELFPAY ==
[2020-09-12 19:26] LABS: HCT 46.2 % (40.0-50.0); HGB 16.5 g/dL (13.5-17.5); MCH 32.5 pg (27.0-33.0); MCHC 35.7 % (32.0-36.0); MCV 90.9 fL (80-95); MPV 10.6 fL (8.0-11.0); Platelet Count 185 10^3/uL (130-400); RBC 5.08 10^6/uL (4.36-5.78); RDW 12.5 % (11.8-14.1); RDW-SD 41.5 fL; WBC 5.69 10^3/uL (4.4-10.8)
[2020-09-12 19:50] LABS: Anion Gap 10.3 mmol/L (3-11); BUN 21 mg/dL (7-18); CO2 27.7 mmol/L (21.0-32.0); CREATININE 0.9 mg/dL (0.70-1.30); Calcium 9.2 mg/dL (8.5-10.1); Chloride 109 mmol/L (98-107); Glucose 99 mg/dL (74-106); Potassium 4.3 mmol/L (3.5-5.1); Sodium 147 mmol/L (136-145); TSH (W/Ref FT4) 2.29 uIU/mL (0.36-3.74); Vitamin B12 435 pg/mL (193-986)
== END 2020-09-12 19:54 | disposition home or self-care (01) ==
LOC: NCHCN 19:53
PROVIDERS: PCP Family Medicine; Visit Provider Family Medicine
DX: R53.83 Other fatigue (principal); R41.3 Other amnesia; N28.9 Disorder of kidney and ureter, unspecified; R73.03 Prediabetes
CPT/HCPCS: 80048; 85027; 82607; 83036; 84443

== ENCOUNTER 2021-02-01 11:45 | Outpatient (REF) | payer OTHER, SELFPAY ==
--- NOTE | 2021-02-01 11:05 | SKI_PTH ---
PATIENT: Suman Warner LOC: [facility] U#:[id number] AGE/SX: 65/M ROOM: RE02/01/[address]: Karri Trinidad MD : 1955 BED: DIS: 02/01/2021 SPEC #: [id number] RECD: 02/01/21 18:12 STATUS: JAVON REQ #: [id number] LYLY: 02/01/21 11:[address]: Karri Trinidad DEPT: Surgical Specimen RECD BY: Sharri Mauro ENTERED: 02/01/21 18:13 SP TYPE: BRET BRIGHT DR: Ilya Medina Tissues: 1 - SKIN BIOPSY(SHAVE/PUNCH) Procedures: GROSS AND MICRO LEVEL 4 Comments: [id number]
== END 2021-02-01 11:46 | disposition home or self-care (01) ==
LOC: LBN 11:45
PROVIDERS: PCP Family Medicine; Visit Provider Otolaryngology
DX: C44.229 Squamous cell carcinoma of skin of left ear and external auricular canal (principal); H70.12 Chronic mastoiditis, left ear
CPT/HCPCS: 88305

== ENCOUNTER 2021-02-09 10:30 | Outpatient (REF) | payer OTHER, SELFPAY ==
[2021-02-11 16:19] LABS: Calprotectin <15.6 mcg/g
== END 2021-02-09 10:31 | disposition home or self-care (01) ==
LOC: LBN 10:30
PROVIDERS: PCP Family Medicine; Visit Provider Family Medicine
DX: K52.9 Noninfective gastroenteritis and colitis, unspecified (principal)
CPT/HCPCS: 87329; 83993

== ENCOUNTER 2021-02-14 03:58 | Outpatient (CLI) | payer OTHER, SELFPAY ==
[2021-02-14 11:57] LABS: CREATININE 1.1 mg/dL (0.70-1.30)
== END 2021-02-14 03:59 | disposition home or self-care (01) ==
PROVIDERS: PCP Family Medicine; Visit Provider Otolaryngology
DX: C41.0 Malignant neoplasm of bones of skull and face (principal)
CPT/HCPCS: 36415; 82565

== ENCOUNTER 2021-06-14 15:29 | Outpatient (REF) | payer MEDICARE, SELFPAY ==
[2021-06-14 15:56] LABS: BUN 19 mg/dL (7-18); CREATININE 1.1 mg/dL (0.70-1.30); Calcium 9.1 mg/dL (8.5-10.1); Chloride 106 mmol/L (98-107); Glucose 193 mg/dL (74-106); Sodium 145 mmol/L (136-145)
[2021-06-14 16:02] LABS: Hemoglobin A1C 6.4 % (<5.7)
== END 2021-06-14 15:30 | disposition home or self-care (01) ==
LOC: NCHCN 15:29
PROVIDERS: PCP Family Medicine; Visit Provider Family Medicine
DX: I10 Essential (primary) hypertension (principal); R73.03 Prediabetes
CPT/HCPCS: 80048; 83036

== ENCOUNTER → 2021-06-20 10:07 | Outpatient (BNVA) | payer MEDICARE, SELFPAY | PROVIDERS: PCP Family Medicine; Visit Provider Nurse Practitioner Gerontology | DX: N40.1 Benign prostatic hyperplasia with lower urinary tract symptoms (principal); N13.8 Other obstructive and reflux uropathy; R35.0 Frequency of micturition; R39.15 Urgency of urination | CPT/HCPCS: 99214 ==

== ENCOUNTER 2021-06-26 01:24 | Outpatient (CLI) | payer MEDICARE, SELFPAY ==
[2021-06-26 20:12] LABS: COVID-19 PCR Negative (Negative)
[2021-06-26 20:13] LABS: Source Nasal/Nares
== END 2021-06-26 01:25 | disposition home or self-care (01) ==
LOC: LBO 01:25
PROVIDERS: PCP Family Medicine; Visit Provider Otolaryngology
DX: Z20.822 Contact with and (suspected) exposure to COVID-19 (principal); Z01.818 Encounter for other preprocedural examination
CPT/HCPCS: 87635

== ENCOUNTER → 2021-07-25 10:01 | Outpatient (BNVA) | payer MEDICARE, SELFPAY | PROVIDERS: PCP Family Medicine; Visit Provider Nurse Practitioner Gerontology | DX: R35.0 Frequency of micturition (principal); N40.1 Benign prostatic hyperplasia with lower urinary tract symptoms; N13.8 Other obstructive and reflux uropathy | CPT/HCPCS: 99214 ==

== ENCOUNTER 2021-08-01 02:42 | Outpatient (CLI) | payer MEDICARE, SELFPAY ==
[2021-08-01 11:27] LABS: CREATININE 1.2 mg/dL (0.70-1.30)
== END 2021-08-01 02:43 | disposition home or self-care (01) ==
LOC: LBO 02:42
PROVIDERS: PCP Family Medicine; Visit Provider Preventive Medicine Undersea and Hyperbaric Medicine
DX: C41.0 Malignant neoplasm of bones of skull and face (principal)
CPT/HCPCS: 36415; 82565

== ENCOUNTER 2021-08-28 01:18 | Outpatient (CLI) | payer MEDICARE, SELFPAY ==
--- NOTE | 2021-08-28 07:15 | DI.US_ITS ---
Exam(s) US RENAL EXAM: US RENAL CLINICAL HISTORY: flank pain with hx of kidney stones,R10.9. TECHNIQUE: James scale, color and spectral Doppler were used. COMPARISON: CT CT RENAL COLIC WO from 05/08/2020 US US RENAL from 06/15/2020 FINDINGS: Renal size in cm: Right: 11.1 left: 12.3 Echogenicity: Normal Hydronephrosis: No Cyst or mass: A stable small fatty echogenicity lesion upper pole right kidney consistent with an ang iomyolipoma. Nephrolithiasis: Question 4 millimeter stone upper pole versus artifact. Bladder:Not prepped. Prevoid vol: Postvoid vol: IMPRESSION: Question 4 millimeter nonobstructing stone upper pole left kidney versus artifact. No hydronephrosis . DATA REPOSITORY:
== END 2021-08-28 01:38 ==
PROVIDERS: PCP Family Medicine; Visit Provider Nurse Practitioner Gerontology
DX: R10.32 Left lower quadrant pain (principal); Z87.442 Personal history of urinary calculi; N28.89 Other specified disorders of kidney and ureter
CPT/HCPCS: 76770

== ENCOUNTER 2021-09-05 05:41 | Outpatient (CLI) | payer MEDICARE, SELFPAY ==
[2021-09-05 13:20] LABS: CREATININE 0.9 mg/dL (0.70-1.30)
== END 2021-09-05 05:42 | disposition home or self-care (01) ==
LOC: LBO 05:41
PROVIDERS: PCP Family Medicine; Visit Provider Preventive Medicine Undersea and Hyperbaric Medicine
DX: C41.0 Malignant neoplasm of bones of skull and face (principal)
CPT/HCPCS: 36415; 82565

== ENCOUNTER → 2021-09-07 12:55 | Outpatient (BNVA) | payer MEDICARE, SELFPAY | PROVIDERS: PCP Family Medicine; Referring Provider Family Medicine; Visit Provider Nurse Practitioner Gerontology | DX: N40.1 Benign prostatic hyperplasia with lower urinary tract symptoms (principal); N13.8 Other obstructive and reflux uropathy | CPT/HCPCS: 81003; 99214 ==

== ENCOUNTER 2021-09-26 16:37 | Outpatient (REF) | payer MEDICARE, SELFPAY ==
[2021-09-26 19:39] LABS: ALT 39 U/L (16-63); AST 24 U/L (15-37); Alkaline Phosphatase 83 U/L (46-116); Anion Gap 9.2 mmol/L (3-11); BUN 16 mg/dL (7-18); Bilirubin, Total 1.4 mg/dL (0.2-1.0); CO2 27.8 mmol/L (21.0-32.0); Calcium 8.9 mg/dL (8.5-10.1); Chloride 105 mmol/L (98-107); Glucose 219 mg/dL (74-106); Potassium 4.6 mmol/L (3.5-5.1); Sodium 142 mmol/L (136-145); TSH (W/Ref FT4) 1.62 uIU/mL (0.36-3.74); Total Protein 6.9 g/dL (6.4-8.2)
== END 2021-09-26 16:38 | disposition home or self-care (01) ==
LOC: NCHCN 16:37
PROVIDERS: PCP Family Medicine; Visit Provider Family Medicine
DX: I10 Essential (primary) hypertension (principal); R53.83 Other fatigue
CPT/HCPCS: 80053; 84443

== ENCOUNTER 2021-10-05 12:28 | Emergency (ER) | payer MEDICARE, SELFPAY ==
--- NOTE | 2021-10-05 12:15 | RT.EKG_ITS ---
APPROVED REPORT Exam: Resting ECG Reason for Exam: DIZZINESS Patient Location: E HR:65 bpm ECG Measurements Heart Rate 65 AXIS AK 195 P 13 QRSd 91 QRS -31 QT 387 T -8 QTc 402 Conclusion Sinus rhythm...normal P axis, V-rate 60- 99 Left axis deviation...QRS axis (-30,-90)
[2021-10-05 12:35] VITALS: BP 167/85; PULSE 62; RESP 18; TEMP 36.8; O2SAT 99
[2021-10-05] MEDS: Normal Saline 1,000 ML 1000 ML IV (13:43)
[2021-10-05 13:44] VITALS: RESP 18
[2021-10-05 13:45] LABS: Abs Immature Grans 0.01 10^3/uL (0.0-0.06); Absolute Basophil Count 0.04 10^3/uL (0.0-0.2); Absolute Eosinophil Count 0.11 10^3/uL (0.0-0.7); Absolute Lymphocyte Count 0.77 10^3/uL (1.2-3.4); Absolute Monocyte Count 0.41 10^3/uL (0.1-0.8); Absolute Neutrophil Count 3.51 10^3/uL (1.2-6.7); Basophils % 0.8; Eosinophils % 2.3; HCT 46.1 % (40.0-50.0); HGB 15.9 g/dL (13.5-17.5); Immature Grans % 0.2; Lymphocytes % 15.9; MCHC 34.5 % (32.0-36.0); MCV 90 fL (80-95); MPV 10.2 fL (8.0-11.0); Monocytes % 8.5; Neutrophils % 72.3; Platelet Count 212 10^3/uL (130-400); RBC 5.13 10^6/uL (4.36-5.78); RDW 12.6 % (11.8-14.1); RDW-SD 41.7 fL; WBC 4.85 10^3/uL (4.4-10.8)
[2021-10-05 13:46] LABS: Bilirubin Negative (Negative); Blood Trace-intact (Negative); Clarity Clear (Clear); Glucose >=1000 mg/dL (Negative); Ketones Negative (Negative); Leukocyte Esterase Negative (Negative); Nitrite Negative (Negative); Urobilinogen 0.2 EU/dL (Up TO 0.2); pH 6.5 (5-8)
[2021-10-05 13:58] LABS: Bacteria Negative HPF (Negative); C & S Indicated? No; Casts Negative LPF (Negative); Crystals Negative HPF (Negative); Epithelial Cells Rare HPF (Negative); Mucus Negative (Negative); RBC 0-2 HPF (0-2); WBC 0-2 HPF (0-5)
[2021-10-05 14:03] LABS: Troponin I < 50 ng/L (<or=60)
[2021-10-05 14:07] LABS: ALT 34 U/L (16-63); AST 20 U/L (15-37); Albumin 3.8 g/dL (3.4-5.0); Alkaline Phosphatase 91 U/L (46-116); Anion Gap 3.6 mmol/L (3-11); BUN 14 mg/dL (7-18); Bilirubin, Total 1.6 mg/dL (0.2-1.0); CO2 31.4 mmol/L (21.0-32.0); Calcium 8.8 mg/dL (8.5-10.1); Chloride 103 mmol/L (98-107); Glucose 186 mg/dL (74-106); Sodium 138 mmol/L (136-145); TSH (W/Ref FT4) 2.17 uIU/mL (0.36-3.74); Total Protein 7.1 g/dL (6.4-8.2)
--- NOTE | 2021-10-05 14:54 | ED.GENADUL_ITS ---
Discharge Plan Disposition Patient Disposition: HOME Condition: Good Discharge Details Clinical Impression: Acute hyperglycemia Primary Care Provider: Ilya Medina ED Provider: Sharri Johnson Home Meds and New Rx's Prescriptions: Continued rabeprazole 20 mg tablet,delayed release (DR/EC) 20 mg PO DAILY atorvastatin 20 mg tablet 20 mg PO DAILY fluoxetine 10 mg capsule 10 mg PO DAILY vitamin B complex [B Complex-Vitamin B12] Tablet 1 tab PO DAILY loperamide 2 mg capsule 2 mg PO DAILY brimonidine-timolol [Combigan] 5 ML drops 1 drp Ophthalmic Q12H PRN ibuprofen 800 mg Tablet 800 mg PO Q6H PRN acetaminophen 500 mg Tablet 1,000 mg PO Q6H PRN Discharge Instructions Additional Instructions: Follow-up with your primary care physician and your oncologist Have regular meals, try to have protein and fat if you are having carbohydrate Your blood sugar is trending upward and you might benefit from nutrition consult so that you could better balance her blood sugar In terms of your lightheadedness, this could be radiation related . Encourage hydration and healthy diet and close outpatient reassessment Should you develop dizziness, difficulties walking, standing, you must return to the emergency department for reassessment Have your blood pressure rechecked by your primary care physician Referrals: Ilya Medina [Primary Care Provider] - Discharge Data Discharge Date/Time-TO BE ENTERED AT DEPARTURE: 10/05/21 15:14 Medical Decision Making Patient appears well, he has no nystagmus, he has no neurological findings on exam is symptomatically improved after IV hydration only No indication for CT imaging at this time, very low suspicion for central etiology of symptoms Patient also does not report any dizziness at all and is complaining of more of a lightheaded sensation Orthostatics negative, vitals and labs within normal limits Discharged home in stable condition, ambulatory with steady gait, feeling symptomatically improved Will follow up with primary care physician in the outpatient setting Return precautions discussed and patient expressed understanding Suspect symptoms are related to recent radiation Patient is noted to be hyperglycemic, he is instructed to perform diet changes and follow-up with his PCP regarding this finding Medical Records Medical records reviewed: Yes I reviewed the patient's medical records. Lab Data Lab results reviewed: Yes I reviewed the patient's lab results. HPI General Date/Time Provider Initiated Documentation: 10/05/21 12:42 . HPI Narrative: This 66-year-old male with history of squamous cell carcinoma, undergoing ra diation, with a recent parotidectomy in June presents with reports of lightheadedness which started while receiving radiation this afternoon. He is on his 13th dose of radiation reportedly. He states he felt fine prior to the onset of lightheadedness. He denies any dizziness or gait abnormality. He states he felt like this before but this episode lasted slightly longer which precipitated his visit to the emergency department. He denies any vision change, strength or sensation change, speech change. He denies any headache, fever, chest pain, shortness of breath. He states that when he lifts his head up his symptoms are precipitated. He denies any vision change. He states his symptoms are improving without any sort of intervention. Per cancer center nursing staff patient was not orthostatic. Related Data Home Medications Medication Instructions Recorded Confirmed brimonidine 0.2 %-timolol 0.5 % 1 drp ophthalmic (eye) Q12H PRN 01/13/15 10/05/21 eye drops (Combigan) acetaminophen 500 mg tablet 1,000 mg PO Q6H PRN 05/10/20 10/05/21 ibuprofen 800 mg tablet 800 mg PO Q6H PRN 05/10/20 10/05/21 atorvastatin 20 mg tablet 20 mg PO DAILY 12/29/20 10/05/21 rabeprazole 20 mg tablet,delayed 20 mg PO DAILY 12/29/20 10/05/21 release fluoxetine 10 mg capsule 10 mg PO DAILY 01/05/21 10/05/21 vitamin B complex (B 1 tab PO DAILY 03/14/21 10/05/21 Complex-Vitamin B12 tablet) loperamide 2 mg capsule 2 mg PO DAILY 08/08/21 10/05/21 Allergies Allergy/AdvReac Type Severity Reaction Status Date / Time No Known Drug Allergies Allergy Verified 10/05/21 13:47 General Stated Complaint: Dizzy/Sync JUSTINO: 3 Review of Systems All systems reviewed & are unremarkable except as noted in HPI and below PFSH All Active Problems (Updated 10/05/21 @ 15:08 by YUE Cutler) Acute hyperglycemia (Acute) Mixed hearing loss of right ear (Acute) Pulsatile tinnitus, right ear (Acute) 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 (Acute) Myringitis (Acute) History of ear surgery (Acute) ossicular reposition BPH w urinary obs/LUTS (Acute) Right foot infection (Acute) Impacted cerumen, right ear (Acute) Infection of left mastoid bowl (Acute) Bilateral hearing loss due to cerumen impaction (Acute) Tendinitis of both rotator cuffs (Acute 01/12/15) Mixed hearing loss, bilateral (Chronic 09/13/16) Chronic mastoiditis, left ear (Acute 09/13/16) Medical History Anxiety Glaucoma High cholesterol HTN (hypertension) Obstructive sleep apnea Surgical History History of mastoidectomy Bilateral (left 1968, right 1999), right ossiculoplasty History of tonsillectomy and adenoidectomy Family History Father Cancer brain Mother Cancer lung Emphysema, unspecified Social History Smoking/Tobacco Use Status: Never Smoking risk assessment performed?: Yes Alcohol Intake: never Drug use: Never Substance use type: does not use Pets and animals: Yes Pets and animals: dog(s) Do you feel safe at home: Yes Do you feel safe in your relationship?: Yes Exam Const General: cooperative, comfortable and no acute distress HENMT Head: normal to inspection Mouth: oral mucosae normal Eyes Pupils: PERRL EOM: EOM intact bilaterally Other: No nystagmus Neck Other: No carotid bruit Resp Effort & Inspection: normal respiratory effort Auscultation: clear to auscultation bilaterally Cardio Rate: regular rate Rhythm: regular rhythm GI Inspection: normal to inspection Skin General skin exam: no rashes or lesions noted Neuro General: patient alert and patient oriented x3 Cranial Nerves: CN's II-XI intact bilaterally and tongue midline Cognition: normal cognition Speech: speech normal Gait: normal gait Motor: strength 5/5 throughout Sensory Exam: no sensory deficits noted Other: Negative [id number], negative pronator drift Course Vital Signs Vital signs: Vital Signs Temperature 36.8 C 10/05/21 12:35 Pulse 62 10/05/21 12:35 Respiratory Rate 18 05/26/22 12:35 Blood Pressure 167/85 H 10/05/21 12:35 Pulse Oximetry 99 10/05/21 12:35 Temperature 36.8 C 10/05/21 12:35 Temperature Source Temporal Artery Scan 10/05/21 12:35 Pulse 62 10/05/21 12:35 Respiratory Rate 18 10/05/21 13:44 Respiratory Effort Non-Labored 10/05/21 13:44 Respiratory Depth Normal 10/05/21 13:44 Respiratory Pattern Normal 10/05/21 13:44 Blood Pressure 167/85 H 10/05/21 12:35 Blood Pressure Position Sitting 10/05/21 12:35 Pulse Oximetry 99 10/05/21 12:35 Oxygen Delivery Method Room Air 10/05/21 12:35 Oxygen Flow Rate 0 10/05/21 12:35 Lab/Test Results Lab/Test Results: Laboratory Tests Range/Units 10/05/21 10/05/21 10/05/21 13:29 13:38 13:38 WBC (4.4-10.8) 10^3/uL 4.85 RBC (4.36-5.78) 10^6/uL 5.13 Hgb (13.5-17.5) g/dL 15.9 Hct (40.0-50.0) % 46.1 MCV (80-95) fL 90 MCH (27.0-33.0) pg 31.0 MCHC (32.0-36.0) % 34.5 RDW (11.8-14.1) % 12.6 Plt Count (130-400) 10^3/uL 212 MPV (8.0-11.0) fL 10.2 Immature Gran % 0.2 Neutrophils % 72.3 Lymphocytes % 15.9 Monocytes % 8.5 Eosinophils % 2.3 Basophils % 0.8 Nucleated RBC % (0.0-0.3) % 0.0 Absolute Neutrophils (1.2-6.7) 10^3/uL 3.51 Absolute Lymphocytes (1.2-3.4) 10^3/uL 0.77 L Absolute Monocytes (0.1-0.8) 10^3/uL 0.41 Absolute Eosinophils (0.0-0.7) 10^3/uL 0.11 Absolute Basophils (0.0-0.2) 10^3/uL 0.04 Sodium (136-145) mmol/L 138 Potassium (3.5-5.1) mmol/L 4.0 Chloride (98-107) mmol/L 103 Carbon Dioxide (21.0-32.0) mmol/L 31.4 Anion Gap (3-11) mmol/L 3.6 BUN (7-18) mg/dL 14 Creatinine (0.70-1.30) mg/dL 1.0 Estimated GFR/1.73 m2 (mL/min/1.73m2) >= 60.00 Glucose (74-106) mg/dL 186 H Calcium (8.5-10.1) mg/dL 8.8 Magnesium (1.8-2.4) mg/dL 2.0 Total Bilirubin (0.2-1.0) mg/dL 1.6 H AST (15-37) U/L 20 ALT (16-63) U/L 34 Alkaline Phosphatase (46-116) U/L 91 Troponin I (<or=60) ng/L Total Protein (6.4-8.2) g/dL 7.1 Albumin (3.4-5.0) g/dL 3.8 TSH (0.36-3.74) uIU/mL 2.17 Urine Color (Yellow) Yellow Urine Clarity (Clear) Clear Urine pH (5-8) 6.5 Ur Specific Isabella (1.005-1.025) 1.020 Urine Protein (Negative) mg/dL Negative Urine Ketones (Negative) mg/dL Negative Urine Blood (Negative) Trace-intact H Urine Nitrite (Negative) Negative Urine Bilirubin (Negative) Negative Urine Urobilinogen (Up TO 0.2) EU/dL 0.2 Ur Leukocyte Esterase (Negative) Negative Urine RBC (0-2) HPF 0-2 Urine WBC (0-5) HPF 0-2 Ur Epithelial Cells (Negative) HPF Rare Urine Crystals (Negative) HPF Negative Urine Bacteria (Negative) HPF Negative Urine Casts (Negative) LPF Negative Urine Mucus (Negative) Negative Ur Culture Indicated? No Urine Glucose (Negative) mg/dL >=1000 H Range/Units 10/05/21 13:38 WBC (4.4-10.8) 10^3/uL RBC (4.36-5.78) 10^6/uL Hgb (13.5-17.5) g/dL Hct (40.0-50.0) % MCV (80-95) fL MCH (27.0-33.0) pg MCHC (32.0-36.0) % RDW (11.8-14.1) % Plt Count (130-400) 10^3/uL MPV (8.0-11.0) fL Immature Gran % Neutrophils % Lymphocytes % Monocytes % Eosinophils % Basophils % Nucleated RBC % (0.0-0.3) % Absolute Neutrophils (1.2-6.7) 10^3/uL Absolute Lymphocytes (1.2-3.4) 10^3/uL Absolute Monocytes (0.1-0.8) 10^3/uL Absolute Eosinophils (0.0-0.7) 10^3/uL Absolute Basophils (0.0-0.2) 10^3/uL Sodium (136-145) mmol/L Potassium (3.5-5.1) mmol/L Chloride (98-107) mmol/L Carbon Dioxide (21.0-32.0) mmol/L Anion Gap (3-11) mmol/L BUN (7-18) mg/dL Creatinine (0.70-1.30) mg/dL Estimated GFR/1.73 m2 (mL/min/1.73m2) Glucose (74-106) mg/dL Calcium (8.5-10.1) mg/dL Magnesium (1.8-2.4) mg/dL Total Bilirubin (0.2-1.0) mg/dL AST (15-37) U/L ALT (16-63) U/L Alkaline Phosphatase (46-116) U/L Troponin I (<or=60) ng/L < 50 Total Protein (6.4-8.2) g/dL Albumin (3.4-5.0) g/dL TSH (0.36-3.74) uIU/mL Urine Color (Yellow) Urine Clarity (Clear) Urine pH (5-8) Ur Specific Isabella (1.005-1.025) Urine Protein (Negative) mg/dL Urine Ketones (Negative) mg/dL Urine Blood (Negative) Urine Nitrite (Negative) Urine Bilirubin (Negative) Urine Urobilinogen (Up TO 0.2) EU/dL Ur Leukocyte Esterase (Negative) Urine RBC (0-2) HPF Urine WBC (0-5) HPF Ur Epithelial Cells (Negative) HPF Urine Crystals (Negative) HPF Urine Bacteria (Negative) HPF Urine Casts (Negative) LPF Urine Mucus (Negative) Ur Culture Indicated? Urine Glucose (Negative) mg/dL
[2021-10-05 14:56] VITALS: BP 143/92; PULSE 62; TEMP 36.9; O2SAT 99
== END 2021-10-05 15:14 | disposition home or self-care (01) ==
PROVIDERS: Emergency Provider Physician Assistant; PCP Family Medicine
DX: R73.9 Hyperglycemia, unspecified (principal); R42 Dizziness and giddiness; F41.9 Anxiety disorder, unspecified
CPT/HCPCS: 36415; 80053; 93005; 96360; 99284; 81003; 81015; 83735; 84443; 84484; 85025; 93010; 99283

== ENCOUNTER 2021-11-15 15:04 | Emergency (ER) | payer MEDICARE, SELFPAY ==
[2021-11-15 15:19] VITALS: BP 156/96; PULSE 77; RESP 17; TEMP 36.3; O2SAT 97
--- NOTE | 2021-11-16 09:48 | ED.GENADUL_ITS ---
Discharge Plan Disposition Patient Disposition: HOME Condition: Stable Discharge Details Clinical Impression: Hamstring strain Primary Care Provider: Ilya Medina ED Provider: Sharri Johnson Home Meds and New Rx's Prescriptions: Continued rabeprazole 20 mg tablet,delayed release (DR/EC) 20 mg PO DAILY atorvastatin 20 mg tablet 20 mg PO DAILY fluoxetine 10 mg capsule 10 mg PO DAILY vitamin B complex [B Complex-Vitamin B12] Tablet 1 tab PO DAILY loperamide 2 mg capsule 2 mg PO DAILY brimonidine-timolol [Combigan] 5 ML drops 1 drp Ophthalmic Q12H PRN ibuprofen 800 mg Tablet 800 mg PO Q6H PRN acetaminophen 500 mg Tablet 1,000 mg PO Q6H PRN Discharge Instructions Additional Instructions: Take ibuprofen and Tylenol as needed for pain Ice to the affected area Ambulation as tolerated As needed for discomfort Recheck in 1 week with hand pain Report tomorrow for ultrasound, call first thing in the morning to make sure you are scheduled I have low suspicion for a DVT or blood clot in your leg, should you develop chest pain, shortness of breath, skin discoloration, swelling, please return earlier Refrain from activities that elicit discomfort Light stretching as tolerated Voltaren gel for discomfort Referrals: Ilya Medina [Primary Care Provider] - Discharge Data Discharge Date/Time-TO BE ENTERED AT DEPARTURE: 11/15/21 17:24 Medical Decision Making suspect hamstring strain US DVT ordered as a precaution has crutches no anticoag initiated secondary to low suspicion clinically dc'd home in stable condition with stable vitals Medical Records Medical records reviewed: Yes I reviewed the patient's medical records. Lab Data Lab results reviewed: Yes I reviewed the patient's lab results. HPI General Date/Time Provider Initiated Documentation: 11/15/21 15:35 . HPI Narrative: this 66 yom presents with left upper calf and thigh pain for the past several months, acute exacerbation yesterday while walking up hill. felt instant pain when climbed into truck. pain exacerbated with flexion of extremity. denies recent flights, surgeries, long drives, chest pain, shortness of breath. Related Data Home Medications Medication Instructions Recorded Confirmed brimonidine 0.2 %-timolol 0.5 % 1 drp ophthalmic (eye) Q12H PRN 01/13/15 11/15/21 eye drops (Combigan) acetaminophen 500 mg tablet 1,000 mg PO Q6H PRN 05/10/20 11/15/21 ibuprofen 800 mg tablet 800 mg PO Q6H PRN 05/10/20 11/15/21 atorvastatin 20 mg tablet 20 mg PO DAILY 12/29/20 11/15/21 rabeprazole 20 mg tablet,delayed 20 mg PO DAILY 12/29/20 11/15/21 release fluoxetine 10 mg capsule 10 mg PO DAILY 01/05/21 11/15/21 vitamin B complex (B 1 tab PO DAILY 03/14/21 11/15/21 Complex-Vitamin B12 tablet) loperamide 2 mg capsule 2 mg PO DAILY 08/08/21 11/15/21 Allergies Allergy/AdvReac Type Severity Reaction Status Date / Time No Known Drug Allergies Allergy Verified 11/15/21 15:25 General Stated Complaint: Orthopedic JUSTINO: 4 Review of Systems All systems reviewed & are unremarkable except as noted in HPI and below PFSH All Active Problems (Updated 11/15/21 @ 16:42 by YUE Cutler) Hamstring strain (Acute) Mixed hearing loss of right ear (Acute) Pulsatile tinnitus, right ear (Acute) 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 (Acute) Myringitis (Acute) History of ear surgery (Acute) ossicular reposition BPH w urinary obs/LUTS (Acute) Right foot infection (Acute) Impacted cerumen, right ear (Acute) Infection of left mastoid bowl (Acute) Bilateral hearing loss due to cerumen impaction (Acute) Tendinitis of both rotator cuffs (Acute 01/12/15) Mixed hearing loss, bilateral (Chronic 09/13/16) Chronic mastoiditis, left ear (Acute 09/13/16) Medical History Anxiety Glaucoma High cholesterol HTN (hypertension) Obstructive sleep apnea Surgical History History of mastoidectomy Bilateral (left 1968, right 1999), right ossiculoplasty History of tonsillectomy and adenoidectomy Family History Father Cancer brain Mother Cancer lung Emphysema, unspecified Social History Smoking/Tobacco Use Status: Never Smoking risk assessment performed?: Yes Alcohol Intake: never Drug use: Never Substance use type: does not use Pets and animals: Yes Pets and animals: dog(s) Do you feel safe at home: Yes Do you feel safe in your relationship?: Yes Exam Const General: cooperative and comfortable Chest Chest: normal inspection of the chest Resp Effort & Inspection: normal respiratory effort Neuro General: patient alert and patient oriented x3 Extrem Upper/lower leg/hip images: 1. tenderness with palpation NV intact Other: pain exacerbated with flexion of knee no swelling noted Course Vital Signs Vital signs: Vital Signs Temperature 36.3 C L 11/15/21 15:19 Pulse 77 11/15/21 15:19 Respiratory Rate 17 11/15/21 15:19 Blood Pressure 156/96 H 11/15/21 15:19 Pulse Oximetry 97 11/15/21 15:19 Temperature 36.3 C L 11/15/21 15:19 Temperature Source Temporal Artery Scan 11/15/21 15:19 Pulse 77 11/15/21 15:19 Respiratory Rate 17 11/15/21 15:19 Respiratory Effort Non-Labored 11/15/21 16:23 Blood Pressure 156/96 H 11/15/21 15:19 Blood Pressure Position Sitting 11/15/21 15:19 Pulse Oximetry 97 11/15/21 15:19 Oxygen Delivery Method Room Air 11/15/21 15:19 Oxygen Flow Rate 0 11/15/21 15:19 Pain Level 10 11/15/21 15:19
== END 2021-11-15 17:24 | disposition home or self-care (01) ==
PROVIDERS: Emergency Provider Physician Assistant; PCP Family Medicine
DX: S76.812A Strain of other specified muscles, fascia and tendons at thigh level, left thigh, initial encounter (principal); X50.1XXA Overexertion from prolonged static or awkward postures, initial encounter
CPT/HCPCS: 99282

== ENCOUNTER → 2021-11-17 00:20 | Outpatient (CLI) | payer MEDICARE, SELFPAY ==
--- NOTE | 2021-11-17 | DI.US_ITS ---
Exam(s) US LOWER EXTREMITY VENOUS LT EXAM: US LOWER EXTREMITY VENOUS LT CLINICAL HISTORY: LT LEG PAIN, M79.605. TECHNIQUE: Lower extremity venous ultrasound performed using grayscale, color-flow, and spectral Do ppler analysis. COMPARISON: No exams were available for comparison FINDINGS: The common femoral, femoral and popliteal veins demonstrate normal compressibility, augmentation, and color Doppler. The posterior tibial veins are patent. No saphenous vein thrombosis or other superfi cial venous thrombosis is seen. There is a 2.8 x 0.8 x 2.1 centimeter cyst in the popliteal fossa. IMPRESSION: Florian's cyst.. No evidence of DVT. DATA REPOSITORY:
== END ==
PROVIDERS: PCP Family Medicine; Visit Provider Physician Assistant
DX: M71.22 Synovial cyst of popliteal space [Baker], left knee (principal); M79.605 Pain in left leg
CPT/HCPCS: 93971

== ENCOUNTER 2021-11-17 14:09 | Emergency (ER) | payer MEDICARE, SELFPAY ==
[2021-11-17 14:13] VITALS: BP 154/87; PULSE 67; RESP 16; TEMP 36.4; O2SAT 98
--- NOTE | 2021-11-17 14:27 | W.ED.GENAD ---
Discharge Plan Disposition Patient Disposition: HOME Condition: Stable Discharge Details Clinical Impression: Florian's cyst of knee Primary Care Provider: Ilya Medina ED Provider: Raghu Martinez Home Meds and New Rx's Prescriptions: Continued rabeprazole 20 mg tablet,delayed release (DR/EC) 20 mg PO DAILY atorvastatin 20 mg tablet 20 mg PO DAILY fluoxetine 10 mg capsule 10 mg PO DAILY vitamin B complex [B Complex-Vitamin B12] Tablet 1 tab PO DAILY loperamide 2 mg capsule 2 mg PO DAILY brimonidine-timolol [Combigan] 5 ML drops 1 drp Ophthalmic Q12H PRN ibuprofen 800 mg Tablet 800 mg PO Q6H PRN acetaminophen 500 mg Tablet 1,000 mg PO Q6H PRN Discharge Instructions Instructions: Florian Cyst (ED) Additional Instructions: Ultrasound reveals no emergent process although incidentally you do have a Florian's cyst. Please follow the instructions set forth from your ER visit 2 days ago. Watch for new or worsening symptoms and return to the ER for any concerns. If symptoms persist for the next 5-7 days I recommend following up with your primary care provider Medical Decision Making 66-year-old gentleman seen in the ER 2 days ago for left leg pain. Concern for likely muscle strain but ultrasound set up for rule out of DVT. Ultrasound obtained today as an outpatient and patient presented for results. No DVT. There is a Florian's cyst. Discussed ultrasound results with patient. Patient reports that he is actually feeling potentially better than just 2 days ago. He denies any chest pain or shortness of breath. Standard discharge and return precautions were provided. Patient understands, is agreeable to this plan, and has no additional questions or concerns upon discharge. This documentation was generated using [employer] system, please disregard any oddities of phrase or misspellings. Medical Records Medical records reviewed: Yes I reviewed the patient's medical records. Imaging Data Radiologic Study: Attestation: I personally reviewed and interpreted this imaging study as follows: Imaging: Ultrasound Radiologist's impression: EXAM: US LOWER EXTREMITY VENOUS LT CLINICAL HISTORY: LT LEG PAIN, M79.605. TECHNIQUE: Lower extremity venous ultrasound performed using grayscale, color-flow, and spectral Doppler analysis. COMPARISON: No exams were available for comparison FINDINGS: The common femoral, femoral and popliteal veins demonstrate normal compressibility, augmentation, and color Doppler. The posterior tibial veins are patent. No saphenous vein thrombosis or other superficial venous thrombosis is seen. There is a 2.8 x 0.8 x 2.1 centimeter cyst in the popliteal fossa. IMPRESSION: Florian's cyst.. No evidence of DVT. HPI General Mode of arrival: ambulatory. Date/Time Provider Initiated Documentation: 11/17/21 14:26. Limitations to Documentation: no limitations. Information obtained by: patient. HPI Narrative: 66-year-old gentleman seen in the ER 2 days ago returns to the ER for ultrasound results of his left lower extremity to rule out a DVT. He reports significant improvement of his overall discomfort with the therapy force from his 2 days ago. He denies any redness or swelling. He denies any chest pain or shortness of breath. He denies history of DVT or PE. Reports the pain is mild at rest and slightly worse with ambulation. Related Data Home Medications Medication Instructions Recorded Confirmed brimonidine 0.2 %-timolol 0.5 % 1 drp ophthalmic (eye) Q12H PRN 01/13/15 11/17/21 eye drops (Combigan) acetaminophen 500 mg tablet 1,000 mg PO Q6H PRN 05/10/20 11/17/21 ibuprofen 800 mg tablet 800 mg PO Q6H PRN 05/10/20 11/17/21 atorvastatin 20 mg tablet 20 mg PO DAILY 12/29/20 11/17/21 rabeprazole 20 mg tablet,delayed 20 mg PO DAILY 12/29/20 11/17/21 release fluoxetine 10 mg capsule 10 mg PO DAILY 01/05/21 11/17/21 vitamin B complex (B 1 tab PO DAILY 03/14/21 11/17/21 Complex-Vitamin B12 tablet) loperamide 2 mg capsule 2 mg PO DAILY 08/08/21 11/17/21 Allergies Allergy/AdvReac Type Severity Reaction Status Date / Time No Known Drug Allergies Allergy Verified 11/17/21 14:16 General Stated Complaint: Recheck JUSTINO: 5 Review of Systems Constitutional Constitutional: Denies fever(s) Cardiovascular Cardiovascular: Denies chest pain and Denies dyspnea Respiratory Respiratory: Denies cough and Denies dyspnea Musculoskeletal Musculoskeletal: Denies arthralgias Integumentary/Breasts Skin/Breast: Denies rash PFSH All Active Problems (Updated 11/17/21 @ 14:47 by YUE Candelaria) Hamstring strain (Acute) Florian's cyst of knee (Acute) Mixed hearing loss of right ear (Acute) Pulsatile tinnitus, right ear (Acute) 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 (Acute) Myringitis (Acute) History of ear surgery (Acute) ossicular reposition BPH w urinary obs/LUTS (Acute) Right foot infection (Acute) Impacted cerumen, right ear (Acute) Infection of left mastoid bowl (Acute) Bilateral hearing loss due to cerumen impaction (Acute) Tendinitis of both rotator cuffs (Acute 01/12/15) Mixed hearing loss, bilateral (Chronic 09/13/16) Chronic mastoiditis, left ear (Acute 09/13/16) Medical History Anxiety Glaucoma High cholesterol HTN (hypertension) Obstructive sleep apnea Surgical History History of mastoidectomy Bilateral (left 1968, right 1999), right ossiculoplasty History of tonsillectomy and adenoidectomy Family History Father Cancer brain Mother Cancer lung Emphysema, unspecified Social History Smoking/Tobacco Use Status: Never Smoking risk assessment performed?: Yes Alcohol Intake: never Drug use: Never Substance use type: does not use Pets and animals: Yes Pets and animals: dog(s) Do you feel safe at home: Yes Do you feel safe in your relationship?: Yes Exam Const General: cooperative, healthy appearing, comfortable and no acute distress Orientation: alert and awake [facility] Head: normal to inspection, normocephalic and atraumatic Eyes Conjunctivae: conjunctivae normal Neck Neck: normal visual inspection, trachea midline and supple Resp Effort & Inspection: normal respiratory effort and able to speak in complete sentences Auscultation: clear to auscultation bilaterally Cardio Rate: regular rate Rhythm: regular rhythm Skin General skin exam: no rashes or lesions noted Neuro General: patient alert, patient awake, moves all extremities and no focal motor deficits Cognition: normal cognition Speech: speech normal Gait: normal gait Motor: muscle tone normal throughout Sensory Exam: no sensory deficits noted Extrem General: normal to inspection, full ROM, capillary refill normal, no pedal edema and no calf tenderness Other: Left leg normal inspection. There is mild discomfort along the posterior aspect of the knee and just superior. There is no swelling, erythema, warmth. Calf is unremarkable. Normal pedal pulse and capillary refill. Psych Appearance: grossly normal Mental Status: mental status grossly normal Course Vital Signs Vital signs: Vital Signs Temperature 36.4 C L 11/17/21 14:13 Pulse 67 11/17/21 14:13 Respiratory Rate 16 11/17/21 14:13 Blood Pressure 154/87 H 11/17/21 14:13 Pulse Oximetry 98 11/17/21 14:13 Temperature 36.4 C L 11/17/21 14:13 Temperature Source Temporal Artery Scan 11/17/21 14:13 Pulse 67 11/17/21 14:13 Respiratory Rate 16 11/17/21 14:13 Blood Pressure 154/87 H 11/17/21 14:13 Blood Pressure Position Sitting 11/17/21 14:13 Pulse Oximetry 98 11/17/21 14:13 Oxygen Delivery Method Room Air 11/17/21 14:13 Oxygen Flow Rate 0 11/17/21 14:13 Pain Level 3 11/17/21 14:13
== END 2021-11-17 15:00 | disposition home or self-care (01) ==
PROVIDERS: Emergency Provider Physician Assistant; PCP Family Medicine
DX: M71.22 Synovial cyst of popliteal space [Baker], left knee (principal)

== ENCOUNTER 2021-12-20 16:34 | Outpatient (REF) | payer MEDICARE, SELFPAY ==
[2021-12-20 19:41] LABS: Hemoglobin A1C 6.6 % (<5.7)
== END 2021-12-20 16:35 | disposition home or self-care (01) ==
LOC: NCHCN 16:34
PROVIDERS: PCP Family Medicine; Visit Provider Family Medicine
DX: R73.03 Prediabetes (principal)
CPT/HCPCS: 83036

== ENCOUNTER 2022-10-01 13:52 | Outpatient (REF) | payer MEDICARE, SELFPAY ==
[2022-10-01 16:41] LABS: Anion Gap 7.2 mmol/L (3-11); BUN 16 mg/dL (7-18); CO2 28.8 mmol/L (21.0-32.0); CREATININE 0.9 mg/dL (0.70-1.30); Calcium 8.9 mg/dL (8.5-10.1); Calculated LDL 81 mg/dL (<100); Chloride 103 mmol/L (98-107); Cholesterol 160 mg/dL (<200); Estimated GFR 94.19 (mL/min/1.73m2); Glucose 125 mg/dL (74-106); HDL Cholesterol 59 mg/dL (40-60); Potassium 4.9 mmol/L (3.5-5.1); Sodium 139 mmol/L (136-145); Triglyceride 101 mg/dL (<150)
== END 2022-10-01 13:53 | disposition home or self-care (01) ==
LOC: NCHCN 13:52
PROVIDERS: PCP Family Medicine; Visit Provider Family Medicine
DX: I10 Essential (primary) hypertension (principal); E11.9 Type 2 diabetes mellitus without complications; E78.5 Hyperlipidemia, unspecified
CPT/HCPCS: 80048; 80061

== ENCOUNTER → 2023-02-14 02:41 | Outpatient (CLI) | payer MEDICARE, SELFPAY ==
--- NOTE | 2023-02-14 | DI.CT_ITS ---
Exam(s) CT NECK W EXAM: CT NECK W INDICATION: NEOPLASM BONES OF SKULL AND FACE C41.0 EVAL RECURRENCE. COMPARISON: No exams were available for comparison TECHNIQUE: FINDINGS: VISUALIZED PARANASAL SINUSES: Unremarkable. NASOPHARYNX: Unremarkable ORODENTAL: Unremarkable. OROPHARYNX: Unremarkable. No masses evident. HYPOPHARYNX: Unremarkable. Valleculae and epiglottis and aryepiglottic folds appear normal. VOCAL CORDS: Unremarkable. No masses evident. Subglottic airway appears unremarkable. THYROID GLAND: Unremarkable. Normal size and no obvious nodules. SALIVARY GLANDS: Parotid glands appear unremarkable. Left submandibular gland is been resected. Rig ht submandibular gland exhibits normal size. It appears hypodense implying fatty change. No calcifi cation therein. LYMPH NODES: There is no adenopathy evident in the neck and supraclavicular regions. OTHER: There are multiple surgical clips in the left side of the neck adjacent to the left internal j ugular vein and left carotid artery bulb and proximal ICA. These vessels are not stenotic nor thromb osed. There is abnormal appearing tissue at this level between these vessels and the left sternoclei domastoid muscle which may be postsurgical changes but cannot exclude neoplasm. There are small lymph nodes in left side of the neck all measuring less than 1 cm. There is no gross lymphadenopathy. There is no supraclavicular adenopathy. VISUALIZED LUNG APICES: No significant findings. IMPRESSION: 1. The left submandibular gland is surgically absent. 2. There are postsurgical changes in the region of the left carotid and jugular vessels with surroun ding soft tissue thickening, difficult to determine either due to postoperative scarring or neoplasm. Comparison to any prior CT scans would be helpful. 3. There are small sub cm lymph nodes in left side of the neck. RADIATION DOSE DELIVERED: Total DLP DATA REPOSITORY: All CT scans at this facility are submitted to the National Radiology Data Registry (NRDR) Dose Index Registry (DIR) with the [employer] (A[employer]). RADIATION OPTIMIZATION: All CT scans at this facility use at least one of these dose optimization te chniques: automated exposure control; mA and/or kV adjustment per patient size (includes targeted exa ms where dose is matched to clinical indication); or iterative reconstruction.
--- NOTE | 2023-02-14 | DI.CT_ITS ---
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 TECHNIQUE: Imaging Protocol: Axial computed tomography images with coronal and sagittal reformatted images were created and reviewed. CONTRAST MATERIAL: Intravenous: Omnipaque 350 Contrast volume:100 mL contrast route:IV - COMPARISON: CT CT NECK W from 02/14/2023 FINDINGS: There is either postsurgical or destructive changes of the left tympanomastoid structures with extens edwin soft tissue filling this space. Nonvisualization of middle ear ossicles. Deficiency of the tegm en tympani noted. There is evidence of bilateral surgery of the tympanomastoid structures with abundant soft tissue rachael ling the defect on the left side and moderate soft tissue on the right. There is also evidence of prior surgery at similar location on the right side but without soft tissue density filling the postsurgical space. There is minimal mucosal thickening and no fluid levels in the paranasal sinuses. Ethmoidal air cell s are relatively clear. Orbits appear unremarkable. IMPRESSION: Extensive postsurgical changes in the tip endo mastoid regions bilaterally with extensive soft tissue filling defect on the left side. Difficult to determine postoperative change from recurrent or resi dual neoplasm here. RADIATION DOSE DELIVERED: 1018.07 mGy.cm Total DLP DATA REPOSITORY: All CT scans at this facility are submitted to the National Radiology Data Registry (NRDR) Dose Index Registry (DIR) with the [employer] (ACR). RADIATION OPTIMIZATION: All CT scans at this facility use at least one of these dose optimization te chniques: automated exposure control; mA and/or kV adjustment per patient size (includes targeted exa ms where dose is matched to clinical indication); or iterative reconstruction.
[2023-02-14 14:02] LABS: Estimated GFR 83.01 (mL/min/1.73m2)
[2023-02-14] MEDS: Omnipaque 350 MG/ML 100 ML BTL IJ (14:33)
[2023-02-14] MEDS: Omnipaque 350 MG/ML 50 ML BTL IJ (14:34)
[2023-02-14] MEDS: Normal Saline - Diluent 50 ML VIAL IJ (14:35)
--- NOTE | 2023-02-14 17:24 | DI.VRAD_ITS ---
PROCEDURE INFORMATION: Exam: CT Temporal Bones With Contrast. 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 Contrast material: 350; Contrast volume: 150 ml; Contrast route: INTRAVENOUS (IV); COMPARISON: No relevant prior studies available. FINDINGS: Mild mucoperiosteal thickening in the ethmoid sinuses. No air-fluid levels. There is marked destruction versus surgical resection of the LEFT tympanomastoid structures. There is extensive soft tissue filling the defect as well as a surgical clips. There is a permeative pattern of osseous involvement in the inferior aspect of the LEFT mastoid bone. Status post resection of the RIGHT tympanomastoid mastoid structures. There is soft tissue in the superior aspect of the operative defect. There is osseous deficiency of the anterior wall of the sigmoid plates and tegmen tympani bilaterally. The jugular veins and sigmoid and transverse sinuses are patent. Orbits are unremarkable as visualized. The visualized paranasal sinuses are well-aerated. There are no air fluid levels to suggest acute sinusitis. Visualized brain is unremarkable. IMPRESSION: Postsurgical changes in the tympanomastoid structures bilaterally with extensive soft tissue filling the defect on the LEFT and moderate soft tissue on the RIGHT. Surgical clips are identified within the soft tissue infiltration on the LEFT. Permeative pattern of involvement of the LEFT mastoid bone. Deficiency of the sigmoid plate and tegmen tympani bilaterally. It is uncertain whether these findings are all postsurgical in nature or if residual neoplasm is present. The lack of previous imaging studies limits evaluation. Dictated and Authenticated by: Noemi Abarca MD. Ordering:MARILOU Xiong MD
--- NOTE | 2023-02-14 17:24 | DI.VRAD_ITS ---
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 Contrast material: 350; Contrast volume: 150 ml; Contrast route: INTRAVENOUS (IV); COMPARISON: No relevant prior studies available. FINDINGS: Pharynx: Unremarkable. No significant tonsillar enlargement. Larynx: Unremarkable. Epiglottis is normal. Prevertebral and retropharyngeal spaces: Unremarkable. Salivary glands: The LEFT submandibular gland is surgically absent. The RIGHT submandibular gland and the parotid glands are unremarkable. Thyroid: Normal. No enlarged or calcified nodules. Lymph nodes: There are lymph nodes in the LEFT neck at levels 2A, 2B, 3, and 5 a and B, measuring up to 1 cm in maximal dimension (series 9, image 59). Trachea: Visualized trachea is unremarkable. Lungs: Evaluation of the lungs is limited by patient motion artifact. The possibility of RIGHT upper lobe anterior segment pulmonary nodules is not excluded. Bones/joints: For evaluation of the temporal bones please see dedicated CT scan of the temporal bones performed concurrently. Mild degenerative change of the cervical spine. No acute fracture. No suspicious osseous lesion in the cervical spine or thorax. Vasculature: Minimal atherosclerotic calcification of the thoracic aorta without aneurysmal dilatation. The LEFT vertebral artery may arise directly from the thoracic aorta. There is calcification of the V1 segment of the RIGHT vertebral artery, which is dominant. Surgical clips are identified around the LEFT common, internal, and external carotid arteries and the LEFT internal jugular vein, where there is adjacent soft tissue thickening deep to the LEFT sternocleidomastoid muscle. Given the lack of prior imaging studies for direct comparison, it is uncertain whether the soft tissue thickening reflects postoperative change or recurrent/residual neoplasm. Soft tissues: See Vasculature finding. Other findings: Ossification of the ligamentum nuchae. IMPRESSION: 1. Surgical resection LEFT submandibular gland. 2. Postsurgical changes around the LEFT carotid and jugular vessels with surrounding soft tissue thickening. Given the lack of prior imaging studies for direct comparison, it is uncertain whether the soft tissue thickening reflects postoperative change or recurrent/residual neoplasm. Consider PET-CT scan to determine if the findings represent malignancy or postsurgical change. 3. LEFT-sided cervical lymph nodes. 4. This study should be compared with previous imaging studies. Dictated and Authenticated by: Noemi Abarca MD. Ordering:MARILOU Xiong MD
== END ==
PROVIDERS: PCP Family Medicine; Visit Provider Preventive Medicine Undersea and Hyperbaric Medicine
DX: Z98.890 Other specified postprocedural states (principal); Z90.89 Acquired absence of other organs; C41.0 Malignant neoplasm of bones of skull and face
CPT/HCPCS: 70491; 70481; 82565; J3490; Q9967

== ENCOUNTER → 2023-05-02 10:15 | Outpatient (BNVA) | payer MEDICARE, SELFPAY | PROVIDERS: PCP Family Medicine; Referring Provider Family Medicine; Visit Provider Physical Therapy Assistant | DX: Z12.11 Encounter for screening for malignant neoplasm of colon (principal); Z86.010 Personal history of colon polyps ==

== ENCOUNTER 2023-05-20 07:37 | Day surgery (SDC) | payer MEDICARE, SELFPAY ==
--- NOTE | 2023-05-19 18:29 | PDOC.DSDIS_ITS ---
Date of service: 05/20/23 Time of Service: 09:35 Discharge Plan Disposition Patient Disposition: Home Condition: Good Discharge Details Reason For Visit: screening colonoscopy Attending Provider: Arvind Hubbard Primary Care Provider: Ilya Medina Home Meds and New Rx's Prescriptions: Continued rabeprazole 20 mg tablet,delayed release (DR/EC) 20 mg PO DAILY atorvastatin 20 mg tablet 20 mg PO DAILY fluoxetine 10 mg capsule 10 mg PO DAILY vitamin B complex [B Complex-Vitamin B12] Tablet 1 tab PO DAILY loperamide 2 mg capsule 2 mg PO DAILY metformin 500 mg tablet 1,000 mg PO DAILY brimonidine-timolol [Combigan] 5 ML drops 1 drp Ophthalmic Q12H PRN ibuprofen 800 mg Tablet 800 mg PO Q6H PRN acetaminophen 500 mg Tablet 1,000 mg PO Q6H PRN Discontinued polyethylene glycol 3350 17 gram/dose powder 238 g PO ONCE Qty: 238 0RF Rx Instructions: take per colonoscopy instructions bisacodyl [Dulcolax (bisacodyl)] 5 mg tablet,delayed release (DR/EC) 5 mg PO ONCE Qty: 4 0RF Rx Instructions: take per colonoscopy instructions Discharge Instructions Instructions: Colorectal Polyps (GEN) Additional Instructions: Suman, we were able to complete your colonoscopy today without any difficulty. I did find for polyps. I removed these all completely. It will take a week or so for me to get the results of the pathology report, and once I know the nature of these polyps, I can be in touch with my recommendations for your next colonos copy. With regards to the perianal abnormality. It does appear consistent with a skin tag. There are no features of it that I find concerning. Like we talked about beforehand, if it ever becomes uncomfortable, or hygienically difficult to take care of, it can certainly be removed. Otherwise, I would just leave it alone. 1. If tolerated, consume a soft, low fiber diet for 1-2 days. 2[address] Do not drive, drink alcohol, operate machinery, make critical decisions, or do activities that require coordination or balance for 24 hours. 3. Because air was put into your colon during the procedure, expelling air from your rectum (passing gas or farting) is normal. 4. You may not have a bowel movement for 1-3 days because of the colonoscopy prep. This is normal. 5. Go directly to the emergency room if you notice any of the following: Develop chills (warm to touch), or if you have a thermometer and your temperature is above 101 Difficulty breathing or difficultly swallowing Persistent vomiting Severe abdominal pain, other than gas cramps Severe chest pain Black, tarry stools Any bleeding ? exceeding one tablespoon 6. Call your physician if the site where your intravenous was started becomes red, swollen, painful, and warm to touch. 7. Your physician has reviewed your pre-procedure medications. Please continue to take those medications as previously ordered. You will be given specific information/education regarding any changes to your medications before leaving. Activity:: Activity as Tolerated Diet:: As Tolerated DS: Diagnosis Discharge Diagnosis (1) Screening for colorectal cancer: Status: Acute Asessment and Plan: Follow-up on polypectomy results
--- NOTE | 2023-05-19 18:31 | W.COLOREPORT ---
Date of service: 05/20/23 Time of Service: 09:37 Colonoscopy Report Date of procedure: 05/20/23 Pre-op diagnosis general: screening colonoscopy Post-op diagnosis procedure note: other (Colon polyps) Procedure: colonoscopy with polypectomy Surgeon: Arvind Hubbard Anesthesia Type: General:No Airway Estimated blood loss (mL): 10 Pathology: other (0.25 cm polyp at 100, 0.5 cm polyp at 80, 0. 2 5 cm polyp at 75 cm, 0.5 cm polyp at 55) Complications: None Disposition: same day Indications: Suman is a 67 year old man with a history of sessile serrated adenoma who needs his next screening colonoscopy Prep: Miralax/Dulcolax Procedure Start Time: :01 Procedure End Time: : Retraction Time: 19 Findings: 0.25 cm polyp at 100, 0.5 cm polyp at 80, 0. 2 5 cm polyp at 75 cm, 0.5 cm polyp at 55 Procedure Description: After the induction of monitored anesthetic care, and with the patient in left lateral decubitus position, I began by performing an external anorectal exam.? Perineum and skin were normal, as was the anal verge.? There was no evidence of external hemorrhoids, but there was 1 fibrosed perianal skin tag.? Next, I performed a digital rectal exam.? I did not appreciate any abnormal findings.? Next, I advanced a colonoscope into the rectal vault.? I performed retroflexion.? This was normal.? Using insufflation, I then advanced the colonoscope beyond the rectal folds and into the sigmoid colon before advancing towards the cecum.? The scope was noted to be in the cecum by identification of the ileocecal valve and appendiceal orifice.? I then began withdrawing the colonoscope using repeated irrigation as necessary for full evaluation of the colonic mucosa. Around 100 cm from the anal verge I identified a 0.25 cm polyp. ?It appeared flat in character. ?I was able to remove this with a cold forcep polypectomy. ?I examined the site, and there was minimal bleeding. ?Once this was completed, I continued to withdraw the scope and examine the remainder of the colonic mucosa. I also found a 0.5 cm slightly pedunculated polyp at 80 cm from the anal verge, a 0.25 cm polyp that was more flat in nature at 75 cm, and a flat 0.5 cm polyp at 55 cm from the anal verge. These were removed with a combination of cold forceps, as well as snare polypectomy. There was minimal bleeding at any of the sites. Once the scope was withdrawn to the level of the rectum, great care was taken to examine portions of the rectal folds.? Finally, the scope was withdrawn and the patient was brought to the same-day surgery recovery unit as the anesthetic wore off. ?The findings and instructions were shared with the patient prior to discharge. [place] Bowel Prep [place] Bowel Prep Right Colon: 3 Left Colon: 3 Transverse Colon: 3 Total Score: 9
[2023-05-20 08:07] VITALS: BP 150/88; PULSE 66; RESP 18; TEMP 36.2; O2SAT 97
[2023-05-20] MEDS: Lactated Ringers 1,000 ML 80 ML IV (08:19)
--- NOTE | 2023-05-20 08:25 | W.ANESPRE ---
General Info Date of Service Date Performed: 05/20/23 Height: 5 ft 10 in Weight: 110.5 kg Body Mass Index (BMI): 34.9 Surgical Procedure: Operation Date: 05/20/23 09:05 Proposed Procedure Side Surgeon merlin Hubbard MD Meds Allergies and Home Medications Allergies Allergy/AdvReac Type Severity Reaction Status Date / Time No Known Drug Allergies Allergy Verified 05/20/23 08:02 Home Medication Medication Instructions Recorded brimonidine 0.2 %-timolol 0.5 % 1 drp ophthalmic (eye) Q12H PRN 01/13/15 eye drops (Combigan) acetaminophen 500 mg tablet 1,000 mg PO Q6H PRN 05/10/20 ibuprofen 800 mg tablet 800 mg PO Q6H PRN 05/10/20 atorvastatin 20 mg tablet 20 mg PO DAILY 12/29/20 rabeprazole 20 mg tablet,delayed 20 mg PO DAILY 12/29/20 release fluoxetine 10 mg capsule 10 mg PO DAILY 01/05/21 vitamin B complex (B 1 tab PO DAILY 03/14/21 Complex-Vitamin B12 tablet) loperamide 2 mg capsule 2 mg PO DAILY 08/08/21 metformin 500 mg tablet 1,000 mg PO DAILY 08/02/22 Current Visit Medications: Current Medications Generic Name Dose Route Start Last Admin Trade Name Freq PRN Reason Stop Dose Admin Hyoscyamine Sulfate 0.125 mg 05/19/23 18:32 Hyoscyamine 0.125 Mg Sl/Oral/Chew SL 06/18/23 18:31 DIRECTED PRN Ringer's Solution 1,000 mls @ 80 mls/hr 05/20/23 06:00 05/20/23 08:19 IV 05/20/23 23:59 80 mls/hr INFUSION GREGORY Administration IV Miscellaneous Supplies 1 each 05/20/23 06:00 Iv Access IV 05/20/23 23:59 DIRECTED RGEGORY Ondansetron HCl 4 mg 05/19/23 18:32 Ondansetron 4 Mg/2 Ml Vial IVP 06/18/23 18:31 Q4H PRN PRN Nausea / Vomiting Sodium Chloride 0 ml 05/20/23 06:00 Normal Saline Flush 10 Ml Syr IV 05/20/23 23:59 PRN PRN Sodium Chloride 0 ml 05/20/23 06:00 Normal Saline 10 Ml Vial IJ 05/20/23 23:59 DIRECTED PRN Sterile Water 0 ml 05/20/23 06:00 Water,Injection,Sterile 10 Ml Vial IJ 05/20/23 23:59 DIRECTED PRN [facility] Active Problems Active Problems: Problem Status Onset Code Screening for colorectal cancer Z12.11, Z12.12 Glaucoma H40.9 Obesity E66.9 Obstructive sleep apnea G47.33 Diabetes mellitus E11.9 Headache, cluster G44.009 Chronic diarrhea K52.9 Mild memory disturbance R41.3 Wears hearing aid in right ear Z97.4 Raynauds disease I73.00 GERD (gastroesophageal reflux disease) K21.9 Type 2 diabetes mellitus E11.9 BPH w urinary obs/LUTS N40.1, N13.8 Right foot infection L08.9 Tendinitis of both rotator cuffs 01/12/15 M75.81, M75.82 Medical History Medical History Depression Anal and rectal polyp DJD (degenerative joint disease) Head and neck cancer 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 Pulsatile tinnitus, right ear 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 Myringitis Anxiety High cholesterol HTN (hypertension) Impacted cerumen, right ear Infection of left mastoid bowl Bilateral hearing loss due to cerumen impaction Mixed hearing loss, bilateral (09/13/16) Chronic mastoiditis, left ear (09/13/16) Surgical History Surgical History History of ear surgery ossicular reposition History of mastoidectomy Bilateral (left 1968, right 1999), right ossiculoplasty History of tonsillectomy and adenoidectomy Tobacco Smoking/Tobacco Use Status: Never Alcohol Alcohol Intake: never Substance Use Substance use: Never Substance use type: does not use Vital Signs and Lab Results Vital Signs Most Recent Vital Signs in EMR: Most Recent Vital Signs Temp Pulse Resp BP Pulse Ox 36.2 C L 66 18 150/88 H 97 05/20/23 08:07 05/20/23 08:07 05/20/23 08:07 05/20/23 08:07 05/20/23 08:07 Point of Care Results Point of Care Results: Finger Stick Blood Glucose 145 05/20/23 08:23 Lab Results Blood Type / Crossmatch: No Data to Display Complete Blood Count: No Data to Display Complete Metabolic Panel: No Data to Display Liver Function Panel: No Data to Display Coagulation Panel: No Data to Display Cardiac Panel: No Data to Display Arterial Blood Gas: No Data to Display Venous Blood Gas: No Data to Display Pancreas Panel: No Data to Display Thyroid Panel: No Data to Display Infectious Disease: No Data to Display Blood Cultures: No Data to Display Toxicology Panel: No Data to Display Anesthesia Assessment and Plan Anesthesia History Personal History: No History of Anesthesia Complications Family History: No Family History of Anesthesia Complications Exercise Tolerance Exercise Tolerance: Metabolic Equivalents>4 Pertinent Negatives Pertinent Negatives: No Symptoms of GERD Cardiac & Pulmonary Exam Cardiac Exam: Normal S1/S2 Heart Sounds Pulmonary Exam: Clear Bilateral Breath Sounds Implantable Cardiac Device Does patient have a Pacemaker or an ICD?: No Airway Exam Known Difficult Airway: No Mallampati Class: 2 Mouth Opening: Normal (> 3cm) Thyromental Distance: Greater than 3 cm Neck Range of Motion: Limited ROM Neck Circumference: Thick Teeth Condition: Normal Dentition ASA Classification ASA Score: ASA 2 Emergency Case?: No NPO Status NPO Status: NPO Clears >2 hours, Solids >8 hours Anesthesia Plan Resuscitation Status: Full Code Anesthesia Technique: General Anesthesia Airway Planned: Natural Airway Monitors Used: Standard Monitors
[2023-05-20 08:26] VITALS: BMI 34.9
--- NOTE | 2023-05-20 09:06 | BOWEL_PTH ---
PATIENT: Suman Warner LOC: [facility] U#:[id number] AGE/SX: 67/M ROOM: RE05/20/[address]: Arvind Hubbard MD : [id number] BED: DIS: 05/20/2023 SPEC #: [id number] RECD: 05/20/23 12:00 STATUS: JAVON RE #: [id number] LYLY: 05/20/23 09:[address]: Arvind Hubbard DEPT: Surgical Specimen RECD BY: Sharri Mauro ENTERED: 05/20/23 12:01 SP TYPE: Bowel OTHR DR: Ilya Medina Tissues: 1 - BIOPSY BOWEL 2 - BIOPSY BOWEL 3 - BIOPSY BOWEL 4 - BIOPSY BOWEL Procedures: GROSS AND MICRO LEVEL 4 Comments: [id number]
[2023-05-20 09:33] VITALS: BP 131/95; PULSE 70; RESP 14; TEMP 36.2; O2SAT 93
--- NOTE | 2023-05-20 09:37 | W.ANESPOSTOP ---
Postoperative Evaluation Date, Time and Location Date Performed: 05/20/23 Time Performed: 09:37 Patient Location: Day Surgery Unit Vital Signs Most Recent Imported Vital Signs: Most Recent Vital Signs Temp Pulse Resp BP Pulse Ox 36.2 C L 70 14 131/95 H 93 05/20/23 09:33 05/20/23 09:33 05/20/23 09:33 05/20/23 09:33 05/20/23 09:33 Pain Score Most Recent Pain Score: Most Recent Pain Score Pain Level 0 05/20/23 09:33 Assessment Mental Status: Awake (Alert & Oriented to Patient Baseline) Airway and Respiratory Function: Patent airway with normal (patient baseline) respiratory exam Cardiovascular Function: Hemodynamically Stable Hydration Status: Adequately Hydrated Nausea & Vomiting: No Nausea or Vomiting Pain: Pt. Denies Any Pain Peripheral Nerve Block: Patient did not receive a nerve block
[2023-05-20 09:44] VITALS: BP 126/93; PULSE 68; RESP 16; TEMP 36.3; O2SAT 98
== END 2023-05-20 10:24 | disposition home or self-care (01) ==
PROVIDERS: PCP Family Medicine; Visit Provider Surgery
PROC: 0DJD8ZZ Inspection of Lower Intestinal Tract, Via Natural or Artificial Opening Endoscopic (ICD-10-PCS; CPT 45378; principal; 2023-05-20 09:00)
DX: Z12.11 Encounter for screening for malignant neoplasm of colon (principal); D12.3 Benign neoplasm of transverse colon; Z86.010 Personal history of colon polyps; E66.9 Obesity, unspecified; E11.9 Type 2 diabetes mellitus without complications; K21.9 Gastro-esophageal reflux disease without esophagitis; G47.33 Obstructive sleep apnea (adult) (pediatric); D12.4 Benign neoplasm of descending colon; D12.5 Benign neoplasm of sigmoid colon
CPT/HCPCS: 45380; 88305; J2001; J2704

== ENCOUNTER 2023-06-13 10:54 | Outpatient (REF) | payer MEDICARE, SELFPAY ==
--- OUTSIDE RECORDS SUMMARY | 2023-06-13 10:57 | XMS_ITS | Continuity of Care Document ---
Author Name Unknown Organization 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 Operator [employer] Name Role Phone Imani Medina Primary Care Physician [phone] Encounter [facility] Date(s): 03/01/23 - 03/01/23 [facility] [address] [place] [address] Encounter Diagnosis SARITA (obstructive sleep apnea)(Discharge Diagnosis) - 02/25/23 Discharge Disposition: Home or Self Care Attending Physician: Pina Harris [employer] Allergies, Adverse Reactions, Alerts No Known Medication Allergies Medications atorvastatin 10 mg oral tablet 10 mg = 1 tab, Oral, Daily, # 30 tab, 0 Refill(s) Start Date: 02/14/23 Status: Ordered Combigan ophthalmic solution 1 drops, Eye-Both, every 12 hr, # 10 mL, 0 Refill(s) Start Date: 02/14/23 Status: Ordered FLUoxetine 90 mg oral delayed release capsule 90 mg = 1 cap, Oral, every week, # 4 cap, 0 Refill(s) Start Date: 02/14/23 Status: Ordered loperamide 2 mg oral capsule 2 mg = 1 cap, Oral, every 4 hr, PRN as needed for loose stool, # 60 cap, 0 Refill(s) Start Date: 02/14/23 Status: Ordered metFORMIN 500 mg oral tablet 500 mg = 1 tab, Oral, BID, # 60 tab, 0 Refill(s) Start Date: 03/01/23 Status: Ordered RABEprazole 20 mg oral delayed release tablet 20 mg = 1 tab, Oral, Daily, # 30 tab, 0 Refill(s) Start Date: 02/14/23 Status: Ordered Problem List Condition Confirmation Course Effective Dates Status H ealth Status Informant Chronic mastoiditis Confirmed Active GERD (gastroesophageal reflux disease) Confirmed Active Glaucoma Confirmed Active Headache Confirmed Active HLD (hyperlipidemia) Confirmed Active Loose stools Confirmed Active Mass of parotid gland Confirmed Active Mixed anxiety and depressive disorder Confirmed Active Obesity Confirmed Active SARITA (obstructive sleep apnea) Confirmed Active OA (osteoarthritis) Confirmed Active Prediabetes Confirmed Active Raynaud's phenomenon Confirmed Active Subclinical hypothyroidism Confirmed Active Vital Signs Most recent to oldest [Reference Range]: 1 Peripheral Pulse Rate [60-100 bpm] 62 bp m (03/01/23 10:02 AM) Blood Pressure [90-140/60-90 mmHg] 132/7 8mmHg (03/01/23 10:02 AM) Mean Arterial Pressure, Cuff [65-140 mmH g] 96 mmHg (03/01/23 10:02 AM) Weight 113.40 kg (03/01/23 10:02 AM) Weight Measured (lbs) 250.004 lb (03/01/23 10:02 AM) Height 177 cm (03/01/23 10:02 AM) Height/Length Measured (inches) 69.69 in ch (03/01/23 10:02 AM) BSA Measured 2.36 m2 (03/01/23 10:02 AM) Body Mass Index 36.2 kg/m2 (03/01/23 10:02 AM) Social History Social History Type Response Tobacco Never tobacco user T obacco Use:. Sex Male Polysomnography (sleep) study * Michael Timmons: PERFORM Event Display: Sleep Study Authored Date: [id number] * Michael Timmons: PERFORM Event Display: Sleep Study Authored Date: [id number] Physician Outpatient Note * Pina Harris [employer]: PERFORM Event Display: Office Clinic Note Physician Authored Date: [id number] SUMAN COHNE Alondra :1955 Age:67 years Sex:Male Visit Date:03/01/2023 Primary Care Physician: Imani Medina MD History of Present Illness Suman Cohen has a visit for SARITA follow-up. ?? Suman was last seen by me on 07/25/2021. 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 ?? PSG 07/20/11 (BMI 37.9), AHI 20.7/hr, REM AHI 52.6/hr, 02 kristi 87%, PLMi 1.6/hr. ?? Titration 08/31/11 (BMI 37.6), BiPAP 18/14 cm was successful including in REM sleep, no supine REM seen. PLMi 6.7/hr, PLMai 0.9/hr. BiPAP 01/04/4 cm recommended. ?? At his last visit he was using CPAP 9-15 cm with good compliance and reduction in AHI. ?? Suman says things are going well with CPAP and he always uses it. If he misses a night he feels hedoesn't breathe as easy and he has more fatigue the following day He gets to bed around 9:3- pm, hefalls asleep easily. He wakes up 2/night to urinate and he generally gets back to sleep easily. He gets up at 5:30 to start his day. He is not napping. He is using a nasal mask and gets supplies regularly from [facility]. The air pressure feels fine. He is adjusting humidity as needed and has not hadany condensation. He is not snoring with CPAP. He is not waking choking/gasping, he has rare morning headaches. ?? ESS today 07/06 COMPLIANCE DATA REVIEWED WITH PATIENT: Dates 01/29/23-02/27/23,??Days used?? , average use??7 hours,??27 minutes,??median pressure 11??cm,??95 th percentile pressure??13.7??cm,??95 th percentile air leak??35.4??lpm, AHI ??2.5/hr Physical Exam Vitals & Measurements HR:??62??(Peripheral)?? BP:??132/78?? SpO2:??97%?? HT:??177??cm?? WT:??113.40??kg?? BMI:??36.2?? BSA:??2.36?? GENERAL: answers questions appropriately, well groomed, obese/over weight. HEAD: normocephalic and atraumatic. EYES: non icteric LUNGS: CTA all suresh. Good air movement throughout. CARDIO: RRR without murmur, gallop or thrill. NEURO: alert and oriented, normal gait. PYSCH: normal mood and affect. CUTANEOUS: no overt lesions or rashes.?? Clinic Assessment/Plan 1.??SARITA (obstructive sleep apnea)??G47.33 SARITA diagnosed in 2011 with an AHI of 20.7/hr. He is using CPAP 9-15 cm and has excellent complianceand reduction in AHI.?? He benefits from CPAP and continued use is recommended. 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 He is given a 90 day compliance report to take to his manager of medical. ??He is advised to keep up with the routine maintenance of the machine and to clean/replace parts as needed. I will see him back in two years. He is asked to call our office for any sleep related questions or concerns. I provided greater than 30 minutes in the care of this patient, more than half the time was spent in [id number] counseling. Actions: COMPLETED - Referral Management, Medical Service: Other, Reason: dispense all CPAP syupplies as needed [facility], Start: 03/01/23 ?? Problem List/Past Medical History Ongoing Chronic mastoiditis GERD (gastroesophageal reflux disease) Glaucoma Headache HLD (hyperlipidemia) Loose stools Mass of parotid gland Mixed anxiety and depressive disorder OA (osteoarthritis) Obesity SARITA (obstructive sleep apnea) Prediabetes Raynaud's phenomenon Subclinical hypothyroidism Historical No qualifying data Medications What How Much When Instructions Unchanged atorvastatin (atorvastatin 10 mg oral tablet) 1 tab Oral (given by mouth) Every day Contact prescribing physician if questions or concerns ?? Unchanged brimonidine-timolol ophthalmic (Combigan ophthalmic solution) 1 Drops Both eyes Every 12 hours Contact prescribing physician if questions or concerns ?? Unchanged FLUoxetine (FLUoxetine 90 mg oral delayed release capsule) 1 Capsules Oral (given by mouth) Every week Contact prescribing physician if questions or concerns ?? Unchanged loperamide (loperamide 2 mg oral capsule) 1 Capsules Oral (given by mouth) Every 4 hours as needed for as needed for loose stool Contact prescribing physician if questions or concerns ?? Unchanged mirabegron (Myrbetriq) Contact prescribing physician if questions or concerns ?? Unchanged RABEprazole (RABEprazole 20 mg oral delayed release tablet) 1 tab Oral (given by mouth) Every day Contact prescribing physician if questions or concerns ?? Unchanged tamsulosin (tamsulosin 0.4 mg oral capsule) 1 Capsules Oral (given by mouth) Every day Contact prescribing physician if questions or concerns ?? Allergies No Known Medication Allergies Social History Electronic Cigarette/Vaping Electronic Cigarette Use: Never. Tobacco Never tobacco user Tobacco Use:. Electronically Signed on 03/01/23 10:17 AM Pina Harris [employer] * Michael Timmons: PERFORM Event Display: Office Clinic Note Physician Authored Date: [id number] Patient Name SUMAN COHEN (66yo, M) ID# [id number] Appt. Date/Time 07/25/2021 11:15AM 1955 Service Dept[facility] Provider PINA HARRIS NP Insurance Med Primary: [place] Insurance # : [id number] Med Secondary: [employer] (MEDICARE SUPPLEMENT) Insurance # : [id number] Prescription: [facility] - Member is eligible. details Chief Complaint None recorded. Patient's Care Team Primary Care Provider: [facility] MEDICAL RECORDS: [address] [place] [address] [address], [place] [address], , Primary Care Provider: IMANI MEDINA MD ([facility]): [address], [place] [address], , Space Physicist: DIDIER MONCADA MD: [address], [place] [address], , Other: [facility]: [address], [place] [address], , Patient's Pharmacies [facility] (PRIMARY) (MAIL-ORDER, ERX): [address] [place] [address], , [facility] (ERX): [address] [place] [id number], Ph , Vitals Ht: 5 ft 10 in Stated (177.8 cm) 07/25/2021 10:58 am Wt: 239 lbs Stated (108.41 kg) 07/25/2021 11:00 am BMI: 34.3 07/25/2021 11:00 am BP: 148/88 sitting L arm 07/25/2021 11:01 am Pulse: 66 bpm 07/25/2021 11:01 am O2Sat: 98% 07/25/2021 11:01 am Allergies Reviewed Allergies NKDA Medications Reviewed Medications atorvastatin 10 mg tablet Take 1 tablet(s) every day by oral route. 06/16/18 entered JENNIFER Cardenas Combigan 0.2 %-0.5 % eye drops Instill 1 drop(s) every 12 hours by ophthalmic route. 06/16/18 entered JENNIFER Cardenas FLUoxetine 90 mg capsule,delayed release Take 1 capsule(s) by oral route. Internal Note: every 10 days 06/16/18 entered JENNIFER Cardenas loperamide 2 mg tablet Take 1 tablet(s) every day by oral route. 05/10/21 entered JENNIFER Desai Myrbetriq 07/25/21 entered JENNIFER Desai RABEprazole 20 mg tablet,delayed release Take 1 tablet(s) every day by oral route. 07/25/21 entered JENNIFER Desai tamsulosin ER 0.4 mg capsule,extended release Take 2 capsule(s) every day by oral route. 05/10/21 entered JENNIFER Desai Vaccines None recorded. Problems Reviewed Problems Obstructive sleep apnea syndrome - Onset: 06/16/2018 - PSG 07/20/11 AHI 20.7, 02 87%, CPAP 9-15 cm [facility]- nocturnal oximetry on CPAP 08/28/18 02 kristi 87%, 2.5 min<88%, no change- Mixed anxiety and depressive disorder - Onset: 06/16/2018 Gastroesophageal reflux disease - Onset: 06/16/2018 Glaucoma - Onset: 06/16/2018 Headache - Onset: 06/16/2018 Raynaud's phenomenon - Onset: 06/16/2018 Mass of parotid gland - Onset: 06/16/2018 Osteoarthritis - Onset: 06/16/2018 Loose stool - Onset: 06/16/2018 Obesity - Onset: 06/16/2018 Subclinical hypothyroidism - Onset: 06/16/2018 Hyperlipidemia - Onset: 06/16/2018 Prediabetes - Onset: 06/16/2018 Chronic mastoiditis - Onset: 06/16/2018 Family History Family History not reviewed (last reviewed 03/01/2020) Social History Social History not reviewed (last reviewed 05/10/2021) Education and Occupation Are you currently employed?: Yes Substance Use Do you or have you ever smoked tobacco?: Never smoker How much tobacco do you chew?: none What was the date of your most recent tobacco screening?: 11/25/2018 What is your level of alcohol consumption?: None (Notes: very rarely) What is your level of caffeine consumption?: Occasional (Notes: coffee 3 cups weekly) Activities of Daily Living Are you blind or do you have difficulty seeing?: Yes (Notes: corrective lenses) [facility] General Social History List Language Difficulties: No Other Animal exposure?: Yes (Notes: dog) Hard of hearing or deaf in one or both ears?: Yes (Notes: both) Live alone or with others?: with others Gender Identity and LGBTQ Identity Surgical History Surgical History not reviewed (last reviewed 03/01/2020) Past Medical History Past Medical History not reviewed (last reviewed 03/01/2020) Screening Name Score Notes [place] Sleepiness 3 HPI Suman Cohen has a visit for SARITA follow-up. Suman was last seen by me on 05/10/21. Suman has a history of left parotid mass, cluster SNYDER, HLD,pre-DM, GERD, DJD, Raynaud???s, obesity, glaucoma and SARITA. PSG 07/20/11 (BMI 37.9), AHI 20.7/hr, REM AHI 52.6/hr, 02 kristi 87%, PLMi 1.6/hr. Titration 08/31/11 (BMI 37.6), BiPAP 18/14 cm was successful including in REM sleep, no supine REM seen. PLMi 6.7/hr, PLMai 0.9/hr. BiPAP 20/11/4 cm recommended. At his last visit he was using CPAP 9-15 cm with good compliance and reduction in AHI. He recently started on Medicare and was required to have an updated visit so he can continue to get supplies. Suman tells me he is using his CPAP most nights. He is tolerating it well. The pressures feel ok and no problems with mask. He is sleeping from 10pm to 6 am. He wakes up 2/night to urinate and gets back to sleep easily. Suman tells me he was diagnosed with a very rare inner ear cancer and had a surgery one month ago at [facility] [place] [place]. He had a 12.5 hour operation and they removed all the cancer and he starts radiation in about 3 weeks and will be having 30 treatments of low dose radiation. He was told there 85% chance oncethe radiation is complete the cancer won't come back. 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 He is unable to fully blink or smile with left side of face. He is being told this should fully recover. He has some reduced vision in his left eye as well. He was not able to use his CPAP after surgery because he had 35 adrienne in his head and a lot of swelling. His sleep has been much more sound now that he is back on CPAP. ESS today 08/03 COMPLIANCE DATA REVIEWED WITH PATIENT: 06/24/21-07/24/21, Used 26/30 days, average use 9 hours 29 minutes a night, median pressure 11.2cm, 95 th percentile pressure 13.7cm, 95 th percentile air leak 40.8 lpm, AHI 3/hour. ROS ROS as noted in the HPI Physical Exam Patient is a 66-year-old male. General: A&O, well groomed obese. HEAD: normocephalic & atraumatic. EYES: non icteric. LUNGS: CTA all suresh. Good air movement. CARDIO: RRR without murmur, gallop or thrill. NEURO: A&O. Normal gait. PSYCH: Normal mood and affect. CUTANEOUS: no overt lesions or rashes Assessment / Plan 1. Obstructive sleep apnea syndrome - SARITA diagnosed in 2011 with an AHI of 20.7/hr. He is using CPAP 9-15 cm and has excellent complianceand reduction in AHI. He continues to benefit with elimination of snoring, more sound sleep and essentially elimination of daytime sleepiness. He is encouraged to keep up with the routine maintenanceof the machine and to clean and replace parts as indicated. I will see him back in one year. He is asked to call the clinic for any sleep related questions or concerns. I provided greater than 20 minutes in the care of this patient, more than half the time was spent in [id number] counseling. G47.33: Obstructive sleep apnea (adult) (pediatric) CPAP SUPPLIES - Discontinue all CPAP supplies as needed. He is using CPAP 9-15 cm Qty: 1 Unit Refills: 0 Supplier: [facility] Return to Office to see PINA HARRIS NP at [facility] on or around 07/25/2022 Electronically Signed on 02/14/23 03:36 PM Michael Timmons Patient Care team information Care Team Personnel Name: Imani Medina MD Position: No Access Member Role: Primary Care Physician Address: Address: [address] [place], [place] [address]
[2023-06-13 15:38] LABS: Bilirubin Negative (Negative); Blood Negative (Negative); Clarity Turbid (Clear); Glucose 250 mg/dL (Negative); Ketones Negative (Negative); Leukocyte Esterase Negative (Negative); Nitrite Negative (Negative); Specific Gravity 1.025 (1.005-1.025); Urobilinogen 0.2 mg/dL (Up to 0.2)
== END 2023-06-13 10:55 | disposition home or self-care (01) ==
LOC: NCHCN 10:54
PROVIDERS: PCP Family Medicine; Visit Provider Family Medicine
DX: R82.998 Other abnormal findings in urine (principal); R10.9 Unspecified abdominal pain
CPT/HCPCS: 81003

== ENCOUNTER → 2023-06-17 03:38 | Outpatient (CLI) | payer MEDICARE, SELFPAY ==
--- NOTE | 2023-06-17 | DI.CT_ITS ---
Exam(s) CT ABDOMEN PELVIS WO EXAM: CT ABDOMEN PELVIS WO CLINICAL HISTORY: RT FLANK PAIN,H/O NEPHROLITHIASIS, ? STONE,R10.9. TECHNIQUE: Imaging Protocol: Axial computed tomography images with coronal and sagittal reformatted images were created and reviewed CONTRAST MATERIAL: Intravenous: none Oral: None COMPARISON: CT CT RENAL COLIC WO from 05/08/2020 FINDINGS: VISUALIZED LUNG BASES: No pleural effusions. There is a small 2-3 millimeter nodule in the anterior basal segment of the right lower lobe which is unchanged from April 2020 and therefore benign. Th ere are no new lung base nodules evident in the field of view of this abdominal study.. ABDOMEN: There is no ascites. LIVER: There are no obvious focal hepatic lesions evident of this noninfused study. GALLBLADDER/BILIARY: No obvious gallbladder pathology. CBD is not dilated. PANCREAS: No evidence of pancreatic mass nor dilatation of the pancreatic duct. SPLEEN: Spleen is not enlarged. No obvious intrasplenic lesions. ADRENALS: There are no significant adrenal masses. KIDNEYS:Small cyst in the superior pole the right kidney measuring 1.2 cm sized is unchanged from nery or CT scan. Does not require further workup. No solid renal masses. No calculi nor hydronephrosis. . ABDOMINAL AORTA: Abdominal aorta is not enlarged. LYMPH NODES: There is some streaking in the central mesentery appearing unchanged from CT scan of Apr and there are slightly prominent mesenteric lymph nodes noted, the largest of these measur ing 2.6 x 1.5 x 1.4 cm, larger than previous. There is no para-aortic adenopathy. There is no adeno inga around the aortic bifurcation nor along the iliac chains and there is no inguinal adenopathy. ABDOMINAL WALL: No evidence of significant anterior abdominal wall nor inguinal hernia. GI: There is no evidence of bowel obstruction, free air, nor abscess. PELVIS: LYMPH NODES: There is no intrapelvic nor inguinal adenopathy. GI: No evidence of appendicitis.No evidence of sigmoid diverticulitis. URINARY BLADDER: Collapsed. No radiopaque calculi noted within the lumen. Pelvic ureters are not di lated REPRODUCTIVE: Prostate gland appears mildly enlarged. There is no obturator adenopathy. OSSEOUS: No significant osseous lesions. No fractures. IMPRESSION: 1. No evidence of urinary tract calculi nor urinary tract obstruction, as per request. No radiopaque calculi seen in the urinary bladder (which is mostly collapsed). 2. There is central mesenteric streaking noted which is unchanged from April 2020. There is sligh tly enlarged mesenteric lymph nodes noted, slightly increased in size from the previous study. RADIATION DOSE DELIVERED: 1,218.39mGy.cm Total DLP DATA REPOSITORY: All CT scans at this facility are submitted to the National Radiology Data Registry (NRDR) Dose Index Registry (DIR) with the [employer] (ACR). RADIATION OPTIMIZATION: All CT scans at this facility use at least one of these dose optimization te chniques: automated exposure control; mA and/or kV adjustment per patient size (includes targeted exa ms where dose is matched to clinical indication); or iterative reconstruction.
== END ==
PROVIDERS: PCP Family Medicine; Visit Provider Family Medicine
DX: R10.9 Unspecified abdominal pain (principal)
CPT/HCPCS: 74176

== ENCOUNTER 2023-08-28 17:06 | Outpatient (CLI) | payer MEDICARE, SELFPAY ==
--- NOTE | 2023-08-28 17:00 | RT.EKG_ITS ---
APPROVED REPORT Exam: Resting ECG Reason for Exam: Vibrating Patient Location: O HR:60 bpm ECG Measurements Heart Rate 60 AXIS FL 200 P -1 QRSd 94 QRS -26 QT 404 T 1 QTc 404 Conclusion Sinus rhythm...normal P axis, V-rate 50- 99 Borderline left axis deviation...QRS axis (-15,-29) RSR' in V1 or V2, probably normal variant...small R' only
== END 2023-08-28 17:07 | disposition home or self-care (01) ==
LOC: DI.CM 17:07
PROVIDERS: PCP Family Medicine; Visit Provider Nurse Practitioner Family
DX: R07.89 Other chest pain (principal); R94.31 Abnormal electrocardiogram [ECG] [EKG]
CPT/HCPCS: 93010

== ENCOUNTER 2023-10-22 16:20 | Outpatient (CLI) | payer MEDICARE, SELFPAY ==
[2023-10-22 09:19] LABS: CREATININE 1.1 mg/dL (0.70-1.30); Estimated GFR 73.58 (mL/min/1.73m2)
== END 2023-10-22 16:21 | disposition home or self-care (01) ==
LOC: LBO 16:21
PROVIDERS: PCP Nurse Practitioner Family; Visit Provider Preventive Medicine Undersea and Hyperbaric Medicine
DX: C41.0 Malignant neoplasm of bones of skull and face (principal)
CPT/HCPCS: 36415; 82565

== ENCOUNTER 2024-02-10 15:12 | Outpatient (REF) | payer MEDICARE, SELFPAY ==
--- OUTSIDE RECORDS SUMMARY | 2024-02-10 15:14 | XMS_ITS | Encounter Summary ---
Author Organization [facility] Address [facility] [place] [address] Care Team Providers Care Shirt Bander Name Role Phone Ilya Medina MD Primary Care Provider [phone] Encounter Details Date Type Department Care Team (Late st Contact Info) Description 02/21/2023 Telephone [place] [id number] Tyrese Fitzgerald MD [facility] [place] [address] Social History Tobacco Use Types Packs/Day Years Used Date Smoking Tobacco: Never Smokeless Tobacco: Never Alcohol Use Standard Drinks/Week Comments No 0 (1 standard drink = 0.6 oz pur e alcohol) Overall Financial Resource Strain (CARDIA) Answe r Date Recorded How hard is it for you to pa y for the very basics like food, housing, medical care, and heating? Somewhat hard 07/19/2021 Hunger Vital Sign Answer Date Recorded Within the past 12 months, y ou worried that your food would run out before you got the money to buy more. Never true 07/20/19 22 Within the past 12 months, t he food you bought just didn't last and you didn't have money to get more. Never true 07/19/2021 PRAPARE - Transportation Answer Date Re corded In the past 12 months, has l ack of transportation kept you from medical appointments or from getting medications? No 01/2022 In the past 12 months, has l ack of transportation kept you from meetings, work, or from getting things needed for daily living? No 07/19/2021 Housing Stability Vital Sign Answer Warren e Recorded In the last 12 months, was t here a time when you were not able to pay the mortgage or rent on time? No 07/19/2021 In the last 12 months, how many places have you lived? 1 07/19/2021 In the last 12 months, was t here a time when you did not have a steady place to sleep or slept in a jail (including now)? No 07/19/2021 Sex and Gender Information Value Date Recorded Sex Assigned at Male 03/25/2021 10:08 AM EST Gender Identity Male 03/25/2021 10:08 AM EST Sexual Orientation Straight 03/25/2021 10 :08 AM EST documented as of this encounter Miscellaneous Notes * Telephone Encounter - Tyrese Fitzgerald MD - 02/21/2023 11:26 AM EDT I called Mr. Warner regarding his CT imaging results: IMPRESSION: No evidence of disease recurrence/progression. At this point he has DMITRIY, and we will continue routine follow up. documented in this encounter Plan of Treatment Upcoming Encounters Date Type Department Care Team (Late st Contact Info) Description 04/29/2024 11:00 AM EST Office Visit Radiation Oncology at [address] [phone] Tyrese Fitzgerald MD [facility] [place] [address] documented as of this encounter Visit Diagnoses Not on filedocumented in this encounter Care Teams Shirt Bander Relationship 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
--- OUTSIDE RECORDS SUMMARY | 2024-02-10 15:14 | XMS_ITS | Encounter Summary ---
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 No 07/19/2021 Sex and Gender Information Value Date Recorded Sex Assigned at Male 03/25/2021 10:08 AM EST Gender Identity Male 03/25/2021 10:08 AM EST Sexual Orientation Straight 03/25/2021 10 :08 AM EST documented as of this encounter Last Filed Vital Signs Vital Sign Reading Time Taken Comments Blood Pressure 142/93 08/14/2023 8:39 AM EDT Pulse 58 08/14/2023 8:39 AM EDT Temperature 36.5 ??C (97.7 ??F) 08/14/2023 8:39 AM ED T Respiratory Rate 16 08/14/2023 8:39 AM EDT Oxygen Saturation 99% 08/14/2023 8:39 AM EDT Inhaled Oxygen Concentration - - Weight 114.8 kg (253 lb) 08/14/2023 8:39 AM EDT with shoes Height - - Body Mass Index 36.3 08/09/2022 3:50 PM EDT documented in this encounter Progress Notes * Tyrese Fitzgerald MD - 08/14/2023 8:30 AM EDT Images from the original note were not included. 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 Adjuvant radiotherapy. Details: Presentation 66 year old male with a PMH significant for HTN, SARITA, GERD, chronic bilateral ear disease (surgery 1968, left, for cholesteatoma; revision tympanomastoidectomy with ossicular chain reconstruction ~ 2001; right modified canal wall tympanomastoidectomy 2002; bilateral hearing aids since 1999). He noted increased otorrhea (left) in the Spring of 2020, and saw Dr. Trinidad. He was noted to have a persistent area of inflammation with granulation tissue in the region of the inferior drum, and a biopsy revealed a moderately differentiated squamous cell carcinoma. He also noted diminished hearing on the left. He was referred to Dr. Hernández, who he saw on 02/23/21. CT temporal bone / neck as noted below.It was recommended that he undergo surgical resection, as noted below. Staging & Therapy CT Temporal Bone without contrast / Neck w/ contrast 02/23/21: 1. Bilateral tympanomastoidectomy changes with nonspecific soft tissue attenuation filling the obliterated left middle ear cavity representing biopsy- proven squamous cell carcinoma. 2. Mild erosive changes involving the left cochlear promontory. 3. No lymphadenopathy. Left Tympanoplasty, Biopsies 03/31/21: -Pathology: A - Left ear hypotympanum, biopsy - Squamous cell carcinoma (fragments),(in-situ and invasive) wellto moderately differentiated. B - Left posterior inferior drum & skin flap, excision - Squamous cell carcinoma,(fragments), well to moderately differentiated. The tumor appears to invade to a depth of 3-mm (greatest contiguous slide measure). C - Left anterior inferior drum & middle ear, biopsy - Squamous cell carcinoma (fragments), (in-situ and invasive) well to moderately differentiated. D - Left anterior drum & middle ear, biopsy - Squamous cell carcinoma (fragments), (in-situ andinvasive) well to moderately differentiated. E - Left drum, over promontory, biopsy - Squamous cell carcinoma, (in-situ and invasive) well to moderately differentiated. PET-CT 05/04/21: 1. Small ill-defined focus of mildly increased activity in the region of the inferior left middle ear, which is nonspecific and may represent an area of chronic inflammation, however, a neoplastic process not excluded. 2. No other significant abnormalities. Left Subtotal Temporal Bone Resection in setting of Prior Canal Wall Down Mastoidectomy, Left Neck Dissection Level IB, IIA, & III, Left Superficial Inferior Lobe Parotidectomy, Left Submental Myocutaneous Flap (5 cm x 8 cm) 06/28/21 -Findings: Surgical Resection with Left Subtotal Temporal Bone Resection in setting of Prior Canal Wall Down Mastoidectomy and Left Superficial Inferior Lobe Parotidectomy performed via post-auricular combined with cervical approach approach. Tumor noted predominantly along the entire tympanic membrane with extension into the hypotympanum but with no extension into the oval or round window. Lateral skin margins sent and deep margins are drilled bone (not sent) of temporal bone deep to the hypotympanum which easily elevated off the bone. -Pathology: A - LEFT SUPERIOR MEDIAL MARGIN, biopsy: Invasive squamous cell carcinoma (1.5 mm focus) involving the specimen margin abutting tympanic membrane. (see Discussion.) B - LEFT posterior/lateral mastoid contents, biopsy: - Hyperkeratotic squamous epithelium and fibrous soft tissue. - Acellular keratinous debris. - There is no evidence of malignancy. C - LEFT anterolateral canal margin, biopsy: - Skin of ear canal with focal atypia and marked cautery artifact. - No definite carcinoma identified. D - LEFT inferior drum and canal skin, biopsy: - Squamous cell carcinoma, invasive and in situ (~6 mm in greatest span). - Invasive carcinoma involves the anterior specimen margin. - Carcinoma in situ is present <0.1 mm to the canal skin margin. E - LEFT anterior canal skin and anterior tympanic membrane, biopsy: - Squamous cell carcinoma, invasive and in situ. - Invasive carcinoma is present at the specimen margin adjacent to oval window annotation. - Invasive and in situ carcinoma is present at both the TM and hypotympanum/inferior specimen margins. F - LEFT hypotympanum, biopsy: - Invasive squamous cell carcinoma, extensively involving specimen edges. G - LEFT tissue at round window, biopsy: - Benign fibrous and glandular tissue. H - Left neck dissection level 2A, excision: - Seven lymph nodes, negative for malignancy. (0/7) I - LEFT tissue at digastric ridge, excision: - Sclerotic fibrous tissue, negative for malignancy. J - LEFT tragus, excision: - Sclerotic fibrous tissue and cartilage, negative for malignancy. K - LEFT neck level 3, excision: - Nine lymph node, negative for malignancy. (0/9) L - LEFT parotid, excision: - Parotid gland tissue, negative for malignancy. M - LEFT superficial lobe of parotid, excision: - Parotid gland, fibrous tissue, and nerve tissue, negative for malignancy. - Four lymph nodes, negative for malignancy. (0/4) N - Left perifacial node, excision: - Two lymph nodes, negative for malignancy. (0/2) O - Left neck level 1B, excision: - Submandibular gland tissue, negative for malignancy. - Fibroadipose tissue, negative for malignancy. DISCUSSION It is difficult to assign an AJCC pathologic stage due to the inability to assess largest tumor dimension. No perineural or lymphovascular invasion is recognized. Clinical/surgical correlation is needed to determine final margin status with regard to separately submitted involved specimens. MDTB Discussion : Patient is staged at a pT3 based on Modified [place] Staging System for Temporal Bone SCCa. We discussed that the lateral margins are clear based on the map we have drawn and correlation and the deep margins were the bone which were drilled away and there was healthy bone with no evidence of bony erosion clinically on the cochlea (round window tissue negative and no violation of the round window), jugular and carotid canal. Adjuvant Radiotherapy TREATMENT DETAILS Treatment Intent Curative Site Treated Post-operative bed Technique VMAT Adaptive Plan Required No Concurrent Chemo No Clinical Trial No TECHNICAL DETAILS Total Dose: 60 Gy @ 2 Gy/fxn PLAN IMAGES Post-Treatment Course: CT Temporal Bone / Neck 01/30/22: 1. No evidence of local tumor recurrence in the left temporal bone. 2. No cervical lymphadenopathy. 3. No evidence of regional distant metastatic disease. 4. Bilateral temporal bone postsurgical changes as discussed. CT Temporal Bone / Neck 08/09/22: IMPRESSION 1. Stable right temporal bone evaluation. 2. Stable postoperative appearance of the left temporal bone, without evidence of disease recurrence. CT Temporal Bone / Neck 02/21/23: IMPRESSION No evidence of disease recurrence/progression. Time from RT completion: ~ 1 year 9 months Interval History: no issues Currently, he has the following symptoms: Symptom Description Intervention Pain Denies Dysphagia Denies Xerostomia / Dysgeusia Mild, occasional xerostomia Neck Fibrosis / Lymphedema / Pain Denies Dental Regular dental care Nutrition Issues / Weight Loss No issues Feeding Tube Not Present Skin Denies Otalgia / Hearing Changes No issues Smoking Status Not smoking Voice Changes Denies Other No Issues I have personally reviewed the imaging studies referenced above. Exam: No data found. Physical Exam Constitutional: Appearance: He is well-developed. HENT: Head: Comments: No findings left face / ear via visual inspection and palpation concerning for recurrent malignancy. Eyes: Pupils: Pupils are equal, round, and reactive to light. Neck: Comments: Palpation reveals no adenopathy in cervical, SCLV, ICLV dina basins. Well healed post-operative changes, moderate fibrosis. Cardiovascular: Rate and Rhythm: Normal rate. Pulmonary: Effort: Pulmonary effort is normal. Breath sounds: Normal breath sounds. Skin: Findings: No erythema. Neurological: Mental Status: He is alert and oriented to person, place, and time. Cranial Nerves: No cranial nerve deficit. Psychiatric: Behavior: Behavior normal. Procedure: Performance Status: KPS 90-100% ECOG 0 Fully active, able to carry on all pre-disease performance without restriction Summary/Recommendations: Impression: Disease Status: DMITRIY clinically. We discussed that he is still at risk of recurrence and requires continued surveillance 2. Toxicity: Minimal toxicity Dental Care: regular dental care Plan: Follow per [facility] grid Thank you for allowing me to participate in the care of Suman Warner. TYRESE FITZGERALD MD New Orders: No orders of the defined types were placed in this encounter. [facility] [employer] Commission on Cancer ([employer] [place]) Accredited Cancer Program [employer] ([employer]) Accredited Radiation Oncology Program documented in this encounter Plan of Treatment Upcoming Encounters Date Type Department Care Team (Late st Contact Info) Description 04/29/2024 11:00 AM EST Office Visit Radiation Oncology at [address] [address] Tyrese Fitzgerald MD [facility] DR [place] [address] Scheduled Orders Name Type Priority Associated Diagnoses Orde r Schedule Creatinine Lab Routine 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 No evidence of disease recurrence, new mass or adenopathy. Thank you for letting us participate in the care of this patient. ??If you are a health care provider and have any questions regarding this report, please contact the number below. ??For patients who have questions please contact the health dog day care attendant that requested your imaging first. ? Narrative 11/01/2023 9:54 AM EDT EXAMINATION: CT NECK SOFT TISSUE W CONTRAST (GENERIC) CLINICAL HISTORY: Head/neck cancer, assess treatment response s/p surgery and radiotherapy for external auditory canal squamous cell carcinoma, please image from above base of skull / EAC to low neck . C41.0, 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 TECHNIQUE: CT neck performed after the intravenous administration of contrast. Administered 110.0 ml of OMNIPAQUE 350.00 mg/ml. COMPARISON: Next CT 02/14/2023 FINDINGS: There are stable postoperative changes of left temporal bone with soft tissue noted filling the left middle ear and mastoid cavity. Partially aerated right-sided mastoidectomy defect is unchanged in appearance. There is no interval osseous erosion or focal enhancing soft tissue mass identified. There is similar there are similar foci of sigmoid plates thinning bilaterally. There are no interval defects of the tegmen. Surgical clips dina dissection noted on the left without evidence of interval adenopathy. Similar mild prominence of left-sided level 1B and 5 nodes. There is no mass identified of the floor of mouth, tongue base, pharynx or larynx. There is no parotid or submandibular gland mass identified. Imaged orbital and intracranial tissues are unremarkable. There are no osseous lesions. Procedure Note Jose Walters, DO - 11/01/2023 EXAMINATION: CT NECK SOFT TISSUE W CONTRAST (GENERIC) CLINICAL HISTORY: Head/neck cancer, assess treatment response s/p surgery and radiotherapy for external auditory canal squamous cell carcinoma, please image from above base of skull / EAC to low neck . C41.0, 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 TECHNIQUE: CT neck performed after the intravenous administration of contrast.Administered 110.0 ml of OMNIPAQUE 350.00 mg/ml. COMPARISON: Next CT 02/14/2023 FINDINGS: There are stable postoperative changes of left temporal bone with softtissue noted filling the left middle ear and mastoid cavity. Partially aerated right-sided mastoidectomy defect is unchanged inappearance. There is no interval osseous erosion or focal enhancing soft tissue mass identified. There is similar there are similar foci of sigmoid platesthinning bilaterally. There are no interval defects of the tegmen. Surgical clips dina dissection noted on the left without evidence ofinterval adenopathy. Similar mild prominence of left-sided level 1B and 5 nodes. There is no mass identified of the floor of mouth, tongue base, pharynxor larynx. There is no parotid or submandibular gland mass identified. Imaged orbital and intracranial tissues are unremarkable. There are no osseous lesions. IMPRESSION Stable neck CT. No evidence of disease recurrence, new mass oradenopathy. Thank you for letting us participate in the care of this patient. If youare a health care provider and have any questions regarding this report,please contact the number below. For patients who have questions please contactthe health dog day care attendant that requested your imaging first. 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
--- OUTSIDE RECORDS SUMMARY | 2024-02-10 15:14 | XMS_ITS | Encounter Summary ---
Author Organization [facility] Address [facility] [place] [address] Care Team Providers Care Liquor Establishment Manager Name Role Phone Ilya Medina MD Primary Care Provider [phone] Encounter Details Date Type Department Care Team (Late st Contact Info) Description 02/20/2023 Orders [place] [address] [facility] [place] [address] Malignant neoplasm of bones of skull and [...] place to sleep or slept in a nursing home (including now)? No 07/19/2021 Sex and Gender Information Value Date Recorded Sex Assigned at Male 03/25/2021 10:08 AM EST Gender Identity Male 03/25/2021 10:08 AM EST Sexual Orientation Straight 03/25/2021 10 :08 AM EST documented as of this encounter Plan of Treatment Upcoming Encounters Date Type Department Care Team (Late st Contact Info) Description 04/29/2024 11:00 AM EST Office Visit Radiation Oncology at [address] [phone] [facility] [place] [address] documented as of this encounter Results * Request For 2nd Read CT Head And Spine (02/20/2023 5:08 PM EDT) Anatomical Region Laterality Modality Head, C-spine, T-spine, L-spine SO Impressions 02/21/2023 11:19 AM EDT No evidence of disease recurrence/progression. Thank you for letting us participate in the care of this patient. ??If you are a health care provider and have any questions regarding this report, please contact the number below. ??For patients who have questions please contact the health wound care nurse that requested your imaging first. ? 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 Recurrence; Sending Institution [facility]; Date of exam [id number]; I believe a reinterpretation of this exam may alter care of Patient. Yes TECHNIQUE: Contrast-enhanced CT scan of the neck Contrast-enhanced CT of the skull base/temporal bones, without retargeted separate reconstructions of the right and left temporal bones. COMPARISON: 08/09/2022 and 01/30/2022 CT of the neck and temporal bones. FINDINGS: Post surgical changes of partial parotidectomy and neck dissection in the left neck are again noted, without evidence of recurrent focal enhancing mass. There is no interval cervical adenopathy. Asymmetric prominence of left-sided level 2 and level 5 nodes are similar. There are no orbital or intracranial findings identified. There is no mass identified of the floor of mouth, tongue base, pharynx or larynx. There is no parotid or submandibular gland mass identified. Skull base/temporal bone imaging demonstrates similar appearance status post bilateral tympanomastoidectomy. Soft tissue attenuation fills the left left mastoid defect and middle ear without evidence of progressive bone demineralization. Small foci of dehiscence again noted over the left sigmoid plate and lateral aspect of the tegmen mastoideum are stable in appearance. The otic capsule carotid plate are intact. The IAC and posterior fossa structures appear unremarkable. The sigmoid dural venous sinus and upper IJ are patent bilaterally. The right mastoid defect is partially aerated. Procedure Note Jose Walters DO - 02/21/2023 EXAMINATION: REQUEST FOR 2ND READ CT HEAD AND SPINE CLINICAL HISTORY: s/p surgery / radiotherapy for Squamous cell carcinomaof the left temporal bone, CT ? Recurrence; Sending Institution [facility]; Date ofexam [id number]; I believe a reinterpretation of this exam may alter care ofPatient. Yes TECHNIQUE: Contrast-enhanced CT scan of the neck Contrast-enhanced CT of the skull base/temporal bones, withoutretargeted separate reconstructions of the right and left temporal bones. COMPARISON: 08/09/2022 and 01/30/2022 CT of the neck and temporal bones. FINDINGS: Post surgical changes of partial parotidectomy and neck dissection in theleft neck are again noted, without evidence of recurrent focal enhancingmass. There is no interval cervical adenopathy. Asymmetric prominence ofleft-sided level 2 and level 5 nodes are similar. There are no orbital orintracranial findings identified. There is no mass identified of the floor of mouth, tongue base, pharynxor larynx. There is no parotid or submandibular gland mass identified. Skull base/temporal bone imaging demonstrates similar appearance statuspost bilateral tympanomastoidectomy. Soft tissue attenuation fills the leftleft mastoid defect and middle ear without evidence of progressive bone demineralization. Small foci of dehiscence again noted over the leftsigmoid plate and lateral aspect of the tegmen mastoideum are stable inappearance. The otic capsule carotid plate are intact. The IAC and posterior fossa structures appear unremarkable. The sigmoid dural venous sinus and upper IJ are patent bilaterally. The right mastoid defect is partially aerated. IMPRESSION No evidence of disease recurrence/progression. Thank you for letting us participate in the care of this patient. If youare a health care provider and have any questions regarding this report,please contact the number below. For patients who have questions please contactthe health wound care nurse that requested your imaging first. Electronically signed by: Jose Walters DO [facility]([phone]), at 02/21/2023 11:19 AM Tyrese Fitzgerald MD IMG OUTSIDE [facility] TATION ORDERABLES documented in this encounter Visit Diagnoses Diagnosis 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, except mandible 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, except mandible documented in this encounter Care Teams Liquor Establishment Manager Relationship 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
--- OUTSIDE RECORDS SUMMARY | 2024-02-10 15:14 | XMS_ITS | Encounter Summary ---
Author Organization [facility] Address [facility] [place] [address] Care Team Providers Care Maltster Name Role Phone Ilya Medina MD Primary Care Provider [phone] Reason for Visit * Reason Comments Follow-up Things are ok. Encounter Details Date Type Department Care Team (Late st Contact Info) Description 10/31/2023 3:20 PM EDT Office [place] [address] Jose D Hoang MD [facility] [place] [address] Cancer of temporal bone Social History Tobacco Use Types Packs/Day Years [...] place to sleep or slept in a fpc (including now)? No 07/19/2021 Sex and Gender Information Value Date Recorded Sex Assigned at Male 03/25/2021 10:08 AM EST Gender Identity Male 03/25/2021 10:08 AM EST Sexual Orientation Straight 03/25/2021 10 :08 AM EST documented as of this encounter Last Filed Vital Signs Vital Sign Reading Time Taken Comments Blood Pressure - - Pulse - - Temperature - - Respiratory Rate - - Oxygen Saturation - - Inhaled Oxygen Concentration - - Weight 117.3 kg (258 lb 8 oz) 10/31/2023 3:07 PM EDT Height 177.8 cm (5' 10) 10/31/2023 3:07 PM EDT Body Mass Index 37.09 10/31/2023 3:07 PM EDT documented in this encounter Progress Notes * Jose D Hoang MD - 10/31/2023 3:20 PM EDT Images from the original note were not included. 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 Hernández & Dr. Hoang (06/28/2021) 1. Left Subtotal Temporal Bone Resection in setting of Prior Canal Wall Down Mastoidectomy 2. Left Neck Dissection Level IB, IIA, & III 3. Left Superficial Inferior Lobe Parotidectomy 4. Left Submental Myocutaneous Flap (5 cm x 8 cm) Flap Debridement & Revision by Dr. Hoang (08/15/2021) 1. Debridement of Left Submental Flap 2. Left Temporalis Muscle Pedicled Flap (6 cm x 6 cm) Completed adjuvant radiation therapy 10/31/2021 Suman Warner presents for follow-up. He is doing remarkably well and is in very good spirits. He has no pain, trismus, facial weakness, new adenopathy or other masses. Hearing in the right ear has been stable. 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 He had a repeat staging CT scan performed today which I reviewed which demonstrates no evidence of recurrence, final resul ts are pending. On examination he is well-developed well-nourished and in no acute distress. Facial nerve function is intact. He has a hearing aid in place in the right ear and on otoscopy he has a postsurgical ear which is dry with no concerning findings. Left external ear is normal with closed ear canal. Palpation of the salivary glands and neck demonstrates no palpable adenopathy or other masses. Intraoral examination is normal. He has no trismus. 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 He has not seen Dr. Hernández in over a year and I will have him follow-up with Dr. Hernández for a formal otologic evaluation and hearing evaluation. He knows to call if he has any questions or concerns. Time spent for this encounter including reviewing records, imaging, counseling, and coordination ofcare: 15 minutes. 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
--- OUTSIDE RECORDS SUMMARY | 2024-02-10 15:14 | XMS_ITS | Encounter Summary ---
Author Organization [facility] Address [facility] [place] [address] Care Team Providers Care Dementia Program Director Name Role Phone Ilya Medina MD Primary Care Provider [phone] Encounter Details Date Type Department Care Team (Latest Contact Info) Description 10/31/2023 Travel Social History Tobacco Use Types Packs/Day Years [...] place to sleep or slept in a senior living (including now)? No 07/19/2021 Sex and Gender Information Value Date Recorded Sex Assigned at Male 03/25/2021 10:08 AM EST Gender Identity Male 03/25/2021 10:08 AM EST Sexual Orientation Straight 03/25/2021 10 :08 AM EST documented as of this encounter Plan of Treatment Upcoming Encounters Date Type Department Care Team (Late st Contact Info) Description 04/29/2024 11:00 AM EST Office Visit Radiation Oncology at [address] [phone] Tyrese Fitzgerald MD [facility] [place] [address] documented as of this encounter Visit Diagnoses Not on filedocumented in this encounter Care Teams Dementia Program Director Relationship 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
--- OUTSIDE RECORDS SUMMARY | 2024-02-10 15:14 | XMS_ITS | Clinical Summary ---
Author Organization [facility] Address [facility] [place] [address] Care Team Providers Care Glue Reel Operator Name Role Phone Ilya Medina MD Primary Care Provider [phone] Allergies No known active allergies Medications Medication Sig Dispensed Refills Start Date End Date Status rabeprazole (ACIPHEX) 20 mg tablet Take 1 tablet by mouth 2 times daily. 30 tablet 12 02/06/2011 Active Additional Information Patient taking differently:20 mg OralDAILY, Reported on 07/12/2021 atorvastatin (LIPITOR) 20 mg Tablet 20 mg daily. 02/16/2016 Active dorzolamide-timolol (COSOPT) 22.3-6.8 mg/mL Drops Place into both eyes 2 times daily. 12/19/2015 Active FLUoxetine (PROzac) 10 mg Capsule Take 10 mg by mouth daily. Active loperamide (Imodium A-D) 2 mg Capsule Take 2 mg by mouth every other day. 02/08/2021 Active cyanocobalamin, Vitamin B-12, (Vitamin B-12) 1,000 mcg Tablet Take 1,000 mcg by mouth daily. Active metFORMIN XR (Glucophage XR) 500 mg ER 24 hr tablet 1,000 mg daily. 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, except mandible 03/06/2021 Overview (12/06/2021): Adjuvant Radiation Patient's Name: Suman Warner RT End Date: 10/31/2021 Year 1 Pre Tx wk 1 wk 2 wk 3 wk 4 wk 5 wk 6 wk 7 3 mo 6 mo 9 mo 01/31/22 05/02/22 07/31/22 ON ACTIVE TREATMENT COMPLETED TREATMENT Eric - MD x Eric - AP x Rad Onc x x x x x x x x x x x Screen for Need of Lung Ca Screening x Speech x PRN x PRN Soc Work PRN PRN PRN PRN PT PRN PRN Nutrition x x x x x x x x x G-tube x remove Dental Consult x CT Neck x PET/CT PRN Labs-CBC, CMP x x x x x x x TSH x 1 to 5 Years 12 mo 15 mo 18 mo 21 mo 24 mo 2.5 yrs 3 yrs 3.5 yrs 4 yrs 4.5 yrs 5 yrs 10/31/22 01/31/23 05/02/23 08/01/23 11/01/23 05/02/24 10/31/24 05/02/25 10/31/25 05/02/26 10/31/26 COMPLETED TREATMENT Eric - MD x x x x [place] - AP x x Rad Onc x x x x x Speech PRN Soc Work PRN PT PRN Nutrition PRN PET/CT PRN CT neck x Labs: TSH x x x x PCP Lung imaging* x x x x PCP *Lung imaging: <10 pack-years: not needed >10 pack-years and high risk (age 55+, 30+ P-Y tobacco history within 15 years, willing/able to consider lung ca tx): consider ordering CT Chest Screening Lung Cancer. > 10 pack-years and intermediate risk (age 50+, 20+ P-Y, willing/able to consider lung ca tx): consider ordering Chest Xray PA/lateral. Over 5 YEARS: Alternate annual follow-up appointments between Eric AP and MD, beginning with AP at 6-year appt. Viral warts 02/20/2016 Diarrhea 09/30/2012 Chilblains 04/28/2012 Visit for suture removal 10/16/2011 Nevus 09/24/2011 Dizziness 05/29/2011 GERD (gastroesophageal reflux disease) 1 Chronic serous otitis media 12/06/2010 Dysplastic nevus 11/30/2010 Atypical nevus 11/29/2010 Nocturia Social History Tobacco Use Types Packs/Day Years [...] place to sleep or slept in a mcc (including now)? No 07/19/2021 Sex and Gender Information Value Date Recorded Sex Assigned at Male 03/25/2021 10:08 AM EST Gender Identity Male 03/25/2021 10:08 AM EST Sexual Orientation Straight 03/25/2021 10 :08 AM EST Last Filed Vital Signs Vital Sign Reading Time Taken Comments Blood Pressure 142/93 08/14/2023 8:39 AM EDT Pulse 58 08/14/2023 8:39 AM EDT Temperature 36.5 ??C (97.7 ??F) 08/14/2023 8:39 AM ED T Respiratory Rate 16 08/14/2023 8:39 AM EDT Oxygen Saturation 99% 08/14/2023 8:39 AM EDT Inhaled Oxygen Concentration - - Weight 117.3 kg (258 lb 8 oz) 10/31/2023 3:07 PM EDT Height 177.8 cm (5' 10) 10/31/2023 3:07 PM EDT Body Mass Index 37.09 10/31/2023 3:07 PM EDT Plan of Treatment Upcoming Encounters Date Type Department Care Team (Late st Contact Info) Description 04/29/2024 11:00 AM EST Office Visit Radiation Oncology at [address] [phone] Tyrese Fitzgerald MD [facility] [place] [address] Health Maintenance Due Date Last Done Comments CT Colonography 1955 FIT DNA 1955 FIT 1955 Sigmoidoscopy 1955 Hepatitis C Screening 1974 Tetanus/Diphtheria/Pertussis Vaccines (1 - Tdap) 1975 Zoster vaccine (1 of 2) 2006 Pneumoccocal Vaccine: 65+ (1 of 1 - PCV) 2021 Colonoscopy 10/09/2022 10/09/2012, 09/12, 10/09/2012 Colorectal Cancer Screening 10/09/2022 Sigmoidoscopy (10 year) with FIT yearly 10/09/2022 10/09/2012, 10/09/2012, 10/09/2012 Covid-19 Vaccine ( - season) 2024 Influenza (Flu) vaccine (1 o f 1 - Influenza standard series) 01/12/2024 Diabetes Screening (HgbA1C o r Glucose) 08/16/2024 08/16/2021, 06/29/2021 Procedures Procedure Name Priority Date/Time Associated Diagnosis Comments BASIC METABOLIC PANEL Routine 08/16/2021 3:38 AM EDT COLONOSCOPY FLEXIBLE-WITH BX (MSCHAD) Routine 10/09/2012 2:45 PM EDT Diarrhea from Last 3 Months or Most Recently Relevant to Health Maintenance Results * (ABNORMAL) Basic Metabolic Panel (non-fasting) (08/16/2021 3:38 AM EDT) Glucose 199 65 - 199 mg/dL [facility] Comment:Diabetes: >=200 mg/d L plus symptoms Blood Urea Nitrogen 16 10 - 20 mg/dL [facility] Creatinine 0.88 0.80 - 1.50 mg/dL [facility] Sodium 135 135 - 145 mmol/L [facility] Potassium 4.3 3.5 - 5.0 mmol/L [facility] Comment: Please note: ??Patients with WBC >100,000 may have falsely elevated Potassium levels. ??For accurate Potassium quantification in these patients send serum separator tube (gold top) for subsequent determinations. ??Contact the Clinical Chemistry Laboratory if there are any questions. Chloride 102 98 - 107 mmol/L [facility] Carbon Dioxide 20(L) 22 - 31 mmol/L [facility] Anion Gap 13 5 - 15 mmol/L [facility] Calcium 8.8 8.5 - 10.5 mg/dL [facility] Est Glomerular Filtration Rate 90 >=60 mL/min/1. 73 m?? [facility] Comment: This patient? s estimated glomerular filtration rate (eGFR) is between 90 mL/min/1.73 m2 (patients with less muscle mass per kg body weight) and 104 mL/min/1.73 m2 (patients with more muscle mass per kg body weight) as determined by the CKD-EPI equation. Assessment of eGFR is not appropriate when creatinine concentrations are rapidly changing. For clinical decisions where creatinine clearance will affect therapy, a 24-hour urine creatinine clearance may be advised. Assignment of CKD stage 1 - 5 for patients with an eGFR near the transition point between stages may be based on clinical assessment of muscle mass and symptoms in addition to eGFR. Blood 08/16/2021 3:38 AM EDT 08/16/2021 3:53 AM EDT Narrative Resulting Agency Comment Spec In Lab Jose D Hoang MD CHEMISTRY ORDERABL ES [facility] [place] [address] * COLONOSCOPY (10/09/2012 1:56 PM EDT) COLONOSCOPY [facility] Endoscopy Patient Name: Suman Warner ? Procedure Date: 10/09/2012 1:56 PM ? Date of : 1955 ? Age: 57 ? Order #: [id number] ? Procedure: ? Colonoscopy Indications: ? Chronic diarrhea Providers: ? Xiang Owen MD, Connie Modi, ? RN, Neelima Nixon, Vibratory Pile Driver Referring MD: ?Ilya Barrera MD, Adarsh Page MD Medicines: ? Midazolam 4 mg IV, Fentanyl 175 ? micrograms IV Complications: ? No immediate complications. Procedure: ? Pre-Anesthesia Assessment: ? - Prior to the procedure, a History ? and Physical was performed, and ? patient medications and allergies ? were reviewed. The patient is ? competent. The risks and benefits of ? the procedure and the sedation ? options and risks were discussed with ? the patient. All questions were ? answered and informed consent was ? obtained. Patient identification and ? proposed procedure were verified by ? the physician and the nurse in the ? procedure room. Mental Status ? Examination: alert and oriented. ? Airway Examination: normal ? oropharyngeal airway and neck ? mobility. Respiratory Examination: ? clear to auscultation. CV ? Examination: normal. Prophylactic ? Antibiotics: The patient does not ? require prophylactic antibiotics. ? Prior Anticoagulants: The patient has ? taken no previous anticoagulant or ? antiplatelet agents. ASA Grade ? Assessment: II - A patient with mild ? systemic disease. After reviewing the ? risks and benefits, the patient was ? deemed in satisfactory condition to ? undergo the procedure. The anesthesia ? plan was to use moderate sedation / ? analgesia (conscious sedation). ? Immediately prior to administration ? of medications, the patient was ? re-assessed for adequacy to receive ? sedatives. The heart rate, ? respiratory rate, oxygen saturations, ? blood pressure, adequacy of pulmonary ? ventilation, and response to care ? were monitored throughout the ? procedure. The physical status of the ? patient was re-assessed after the ? procedure. ? The procedure, indications, benefits, ? risks and alternatives were explained ? to the patient. Specifically ? discussed were potential ? complications including, but not ? limited to, bleeding, perforation, ? infection, missing a cancer, and ? adverse medication reactions. The ? patient was placed in the left ? lateral decubitus position, and a ? digital rectal exam was performed. ? The Colonoscope was inserted in the ? anus and under direct visualization, ? advanced to the terminal ileum. ? Careful inspection was made as the ? colonoscope was withdrawn. The ? colonoscopy was performed without ? difficulty. The patient tolerated the ? procedure well. The quality of the ? bowel preparation was good. ? Findings: ? The terminal ileum appeared normal. ? A sessile polyp was found in the ascending colon. The ? polyp was 1 mm in size. The polyp was removed with a ? cold biopsy forceps. Resection and retrieval were ? complete. ? Multiple small-mouthed diverticula were found in the ? sigmoid colon, in the descending colon and in the ? ascending colon. ? Normal mucosa was found in the entire colon. Biopsies ? were taken with a cold forceps from the entire colon ? for evaluation of microscopic colitis. ? Impression: ?- The examined portion of the ileum ? was normal. ? - One 1 mm polyp in the ascending ? colon. Resected and retrieved. ? - Diverticulosis in the sigmoid ? colon, in the descending colon and in ? the ascending colon. ? - Normal mucosa in the entire ? examined colon. ? - Biopsies were taken with a cold ? forceps from the entire colon for ? evaluation of microscopic colitis. Recommendation: ?- Await pathology results. ? - Continue present medications. ? - Can take a tab of Pepto Bismol ? daily for diarrhea while awaiting ? pathology results. ? - Discharge patient to home. ? _ Xiang Owen MD 10/09/2012 2:57 PM Number of Addenda: 0 Note Initiated On: 10/09/2012 1:56 PM PROVATION 10/09/2012 1:56 PM EDT Ilya Barrera MD GENERAL SURGICAL ORD ERABLES PROVATION from Last 3 Months or Most Recently Relevant to Health Maintenance Advance Directives Documents on File Type Date Recorded Patient Manager Party Expl anation Advance Directives and Livin g Will 06/30/2021 2:01 PM * Attempt Cardiopulmonary Resuscitation - Inpatient (Latest Code Status on File) Date Activated Date Inactivated Comments 08/15/2021 5:04 PM 08/18/2021 2:45 PM Question Answer Comments Code Status decision made by: Patient * Attempt Cardiopulmonary Resuscitation - Inpatient Date Activated Date Inactivated Comments 06/28/2021 11:21 PM 07/01/2021 3:39 PM Question Answer Comments Code Status decision made by: Patient Care Teams Glue Reel Operator Relationship Specialty Start Date End Date Ilya Medina MD PCP - General 09/25/16
--- OUTSIDE RECORDS SUMMARY | 2024-02-10 15:14 | XMS_ITS | Encounter Summary ---
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, except mandible Procedures CT Neck Soft Tissue w Contrast (Generic) Tyrese Fitzgerald MD [facility] [place] [address] [facility] [place] [address] Referral ID Status Reason Start Date Expiration Date V isits Requested Visits Authorized [id number] Closed Specialty Service Requested 08/14/2023 02/12/2025 1 1 Reason for Visit * Diagnostic Test (Routine) - Closed Specialty Diagnoses / Procedures Referred By Contac t Referred To Contact Radiology Diagnoses 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, except mandible Procedures CT Neck Soft Tissue w Contrast (Generic) Tyrese Fitzgerald MD [facility] [address] [facility] [place] [address] Referral ID Status Reason Start Date Expiration Date V isits Requested Visits Authorized [id number] Closed Specialty Service Requested 08/14/2023 02/12/2025 1 1 Encounter Details Date Type Department Care Team (Latest Contact Info) Description 10/31/2023 12:29 PM EDT - 10/31/2023 11:59 PM EDT Hospital Encounter CT Scan at [facility] [place] [address] Tyrese Fitzgerald MD [facility] [address] 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 No 07/19/2021 Sex and Gender Information Value Date Recorded Sex Assigned at Male 03/25/2021 10:08 AM EST Gender Identity Male 03/25/2021 10:08 AM EST Sexual Orientation Straight 03/25/2021 10 :08 AM EST documented as of this encounter Medications at Time of Discharge Medication Sig Dispensed Refills Start Date End Date metFORMIN XR (Glucophage XR) 500 mg ER 24 hr tablet 1,000 mg daily. 08/01/2022 cyanocobalamin, Vitamin B-12, (Vitamin B-12) 1,000 mcg Tablet Take 1,000 mcg by mouth daily. loperamide (Imodium A-D) 2 mg Capsule Take 2 mg by mouth every other day. 02/08/2021 FLUoxetine (PROzac) 10 mg Capsule Take 10 mg by mouth daily. atorvastatin (LIPITOR) 20 mg Tablet 20 mg daily. 02/16/2016 dorzolamide-timolol (COSOPT) 22.3-6.8 mg/mL Drops Place into both eyes 2 times daily. 12/19/2015 rabeprazole (ACIPHEX) 20 mg tablet Take 1 tablet by mouth 2 times daily. 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 ? Narrative [...] are no osseous lesions. Procedure Note Jose Walters DO - 11/01/2023 EXAMINATION: CT NECK SOFT [...] patients who have questions please contactthe health child care center administrator that requested your imaging first. 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, except mandible documented in this encounter Administered Medications Inactive Administered Medications - up to 3 most recent administrations Medication Order MAR Action Action Date Dose Rate Site iohexoL (Omnipaque) (350 mg/mL) solution 0-200 mL 0-200 mL, Intravenous, ONCE PRN, 1 dose, Starting on Lyndsay 10/31/23 at 1302, Until Lyndsay 10/31/23 at 1302, Per Protocol, Warning Vesicant/Irritant Medication , Radiology Contrast, Routine Given 10/31/2023 1:02 PM EDT 110 mLs documented in this encounter Care Teams Law Office Assistant Relationship 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
--- OUTSIDE RECORDS SUMMARY | 2024-02-10 15:14 | XMS_ITS | Encounter Summary ---
Author Organization [facility] [place] [address] Care Team Providers Care Sanitation Manager Name Role Phone Ilya Medina MD Primary Care Provider [phone] Encounter Details Date Type Department Care Team (Late st Contact Info) Description 07/30/2023 Telephone Radiation Oncology at [address] [phone] Silvia Mayer Social History Tobacco Use Types Packs/Day Years Used Date Smoking Tobacco: Never Smokeless Tobacco: Never Alcohol Use Standard Drinks/Week Comments No 0 (1 standard drink = 0.6 oz pur e alcohol) Overall Financial Resource Strain (CARDIA) Garoe r Date Recorded How hard is it [...] place to sleep or slept in a care home (including now)? No 07/19/2021 Sex and Gender Information Value Date Recorded Sex Assigned at Male 03/25/2021 10:08 AM EST Gender Identity Male 03/25/2021 10:08 AM EST Sexual Orientation Straight 03/25/2021 10 :08 AM EST documented as of this encounter Miscellaneous Notes * Telephone Encounter - Silvia Mayer - 07/30/2023 10:48 AM EDT Spoke with Suman be needed to change the day and time of his appt. He is aware of the new day and time. Will mail out a new appt letter documented in this encounter Plan of Treatment Upcoming Encounters Date Type Department Care Team (Late st Contact Info) Description 04/29/2024 11:00 AM EST Office Visit Radiation Oncology at [address] [phone] Tyrese Fitzgerald MD [facility] [place] [address] documented as of this encounter Visit Diagnoses Not on filedocumented in this encounter Care Teams Sanitation Manager Relationship 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
--- OUTSIDE RECORDS SUMMARY | 2024-02-10 15:14 | XMS_ITS | Encounter Summary ---
Author Organization [facility] Address [facility] [place] [address] Care Team Providers Care Gluing Machine Feeder Name Role Phone Ilya Medina MD Primary Care Provider [phone] Encounter Details Date Type Department Care Team (Late st Contact Info) Description 02/14/2023 Ancillary Procedure Radiology Library at [facility] [place] [phone] Ilya Medina MD [address] [place] [address] [address] [place], [place] [id number] Social History Tobacco Use Types Packs/Day Years [...] AM EST Office Visit Radiation Oncology at [address] [phone] Tyrese Fitzgerald MD [facility] [place] [address] documented as of this encounter Procedures Procedure Name Priority Date/Time Associated Diagnosis Comments FILM LIBRARY STORAGE ONLY CT HEAD AND SPINE Routine 02/14/2023 12:00 AM EDT documented in this encounter Results * Film Library- Storage Only CT Head And Spine (02/14/2023 12:00 AM EDT) Narrative ANASTASIIA - 02/15/2023 2:04 PM EDT This exam is auto-finalizing. It's purpose is for storage only. Ilya Medina MD IMG FILM LIBRARY ORD ERABLES [place], [place] documented in this encounter Visit Diagnoses Not on filedocumented in this encounter Care Teams Gluing Machine Feeder Relationship 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
--- OUTSIDE RECORDS SUMMARY | 2024-02-10 15:14 | XMS_ITS | Encounter Summary ---
Author Organization [facility] Address [facility] [place] [address] Care Team Providers Care Purchase Analyst Name Role Phone Ilya Medina MD Primary Care Provider [phone] Encounter Details Date Type Department Care Team (Latest Contact Info) Description 02/20/2023 5:10 PM EDT Ancillary Procedure Radiology Library at [facility] [place] [address] Tyrese Fitzgerald MD [facility] [place] [address] Malignant neoplasm of bones of skull and [...] place to sleep or slept in a long-term (including now)? 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 ? 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 Recurrence; Sending Institution [facility]; Date of exam [id number]; I believe a [...] temporal bone, CT ? Recurrence; Sending Institution [facility]; Date ofexam [id number]; I believe a reinterpretation [...] have questions please contactthe health wound care coordinator that requested your imaging first. 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
--- OUTSIDE RECORDS SUMMARY | 2024-02-10 15:14 | XMS_ITS | Encounter Summary ---
Author Organization [facility] [place] [address] Care Team Providers Care Tile Setter Supervisor Name Role Phone Ilya Medina MD Primary Care Provider [phone] Encounter Details Date Type Department Care Team (Late st Contact Info) Description 08/14/2023 Telephone [place] [address] Arlin Larios Social History Tobacco Use Types Packs/Day Years [...] EST Office Visit Radiation Oncology at [address] [address] Tyrese Fitzgerald MD [facility] [place] [address] documented as of this encounter Visit Diagnoses Not on filedocumented in this encounter Care Teams Tile Setter Supervisor Relationship Specialty Start Date End Date Ilya Median MD PCP - General 09/25/16 documented as of this encounter
--- OUTSIDE RECORDS SUMMARY | 2024-02-10 15:14 | XMS_ITS | Encounter Summary ---
Author Organization [facility] Address [facility] [place] [address] Care Team Providers Care Manager Chemistry Name Role Phone Ilya Median MD Primary Care Provider [phone] Encounter Details Date Type Department Care Team (Latest Contact Info) Description 08/14/2023 Travel Social History Tobacco Use Types Packs/Day [...] place to sleep or slept in a halfway (including now)? No 07/19/2021 Sex and Gender Information Value Date Recorded Sex Assigned at Male 03/25/2021 10:08 AM EST Gender Identity Male 03/25/2021 10:08 AM EST Sexual Orientation Straight 03/25/2021 10 :08 AM EST documented as of this encounter Plan of Treatment Upcoming Encounters Date Type Department Care Team (Late st Contact Info) Description 04/29/2024 11:00 AM EST Office Visit Radiation Oncology at [address] [phone] Tyrese Fitzgerald MD [facility] [place] [address] documented as of this encounter Visit Diagnoses Not on filedocumented in this encounter Care Teams Manager Chemistry Relationship 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
--- OUTSIDE RECORDS SUMMARY | 2024-02-10 15:14 | XMS_ITS ---
Author Organization [facility] Address [facility] [place] [address] Care Team Providers Care Employment Recruiter Name Role Phone Ilya Medina MD Primary Care Provider [phone] Active Problems Problem Noted Date Diagnosed Date [...] 05/02/22 07/31/22 ON ACTIVE TREATMENT COMPLETED TREATMENT Coila - MD x Coila - AP x Rad Onc x x [...] 10/31/24 05/02/25 10/31/25 05/02/26 10/31/26 COMPLETED TREATMENT Coila - MD x x x x Eric - AP x x Rad Onc x [...] 5 YEARS: Alternate annual follow-up appointments between Coila AP and MD, beginning with AP at 6-year appt. Viral warts 02/20/2016 Diarrhea 09/30/2012 Chilblains 04/28/2012 Visit for suture removal 10/16/2011 Nevus 09/24/2011 Dizziness 05/29/2011 GERD (gastroesophageal reflux disease) 1 Chronic serous otitis media 12/06/2010 Dysplastic nevus 11/30/2010 Atypical nevus 11/29/2010 Nocturia Current Oncology Plans No current plan information found. Past Plans No past plan information found. Radiation Treatments * No radiation treatments are documented for this patient in [facility]. Treatments may have been administered in another system. Lifetime Dose Tracking * Chemical Lifetime Dose Automatic Entry Manual Entr y DLP (Dose Length Product) 1,656 mGy-cm 1,656 mGy-cm 0 mGy-cm CTDI (CT Dose Index) Min 144.85 mGy 144.85 mGy 0 m Gy CTDI (CT Dose Index) Max 165.29 mGy 165.29 mGy 0 m Gy
--- OUTSIDE RECORDS SUMMARY | 2024-02-10 15:15 | XMS_ITS | Encounter Summary ---
Author Organization [facility] Address [facility] [place] [address] Care Team Providers Care Manager Mall Name Role Phone Ilya Medina MD Primary Care Provider [phone] Reason for Visit * Reason Comments Cancer No pain Encounter Details Date Type Department Care Team (Latest Contact Info) Description 02/05/2022 11:40 AM EDT Office [place] [phone] Apolinar Hernández MD 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 Seen in f/u with Dr. Trinidad last week with reassuring exam. Left ear without concerns. Patient has been using CPAP at night and notes some worsening xerostomia in past couple of weeks, resolves with regular hydration. Tolerated XRT well. He reports he had several brief episodes of positional vertigo lasting seconds during XRT sessions. However, this has since resolved.Denies recurrence or any residual baseline dizziness or imbalance. He acknowledges prior history ofBPPV in past. Denies pain. No residual facial weakness. Hearing subjectively stable. Hearing aid for the right ear has been upgraded and he reports he has since been doing better with his hearing. 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 Driving again withoutlimitations. 01/30/22: CT Temporal Bone/Neck without evidence of recurrence 10/31/21: Completed adjuvant XRT with Lia 08/15/21:??Flap Debridement & Revision by Dr. Hoang (08/15/2021) 1. Debridement of Left Submental Flap 2. Left Temporalis Muscle Pedicled Flap (6 cm x 6 cm) 06/28/21: surgical resection as combined case with Dr. Hoang. Surgery 06/28/2021. ??Underwent left modified subtotal temporal bone resection in setting of prior canal wall down mastoidectomy, selective neck dissection levels IB, IIA, and III, parotidectomy, and ear overclosure with submental flap. 10 point Review of Systems was normal except for pertinent positives and negatives included in the History of Present Illness. Past Medical and Surgical History Patient Active Problem List Diagnosis Code ??? Nocturia R35.1 ??? Atypical nevus D22.9 ??? Dysplastic nevus D23.9 ??? Chronic serous otitis media H65.20 ??? GERD (gastroesophageal reflux disease) K21.9 ??? Dizziness R42 ??? Nevus D22.9 ??? Visit for suture removal Z48.02 ??? Chilblains T69.1XXA ??? Diarrhea R19.7 ??? Viral warts B07.9 ??? 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 S/P debridement Z98.890 Current Outpatient Medications on File Prior to Visit Medication Sig Dispense Refill ??? Miscellaneous Medical Supply Misc by [facility].(Non-Drug; Combo Route) route. Phytoplex Remedy Moisturizing Cream- Apply to area of radiation twice a day but no less than 2 hours before a treatment. ??? cyanocobalamin, Vitamin B-12, (Vitamin B-12) 1,000 mcg Tablet Take 1,000 mcg by mouth daily. ??? loperamide (Imodium A-D) 2 mg Capsule Take 2 mg by mouth every other day. ??? FLUoxetine (PROzac) 10 mg Capsule Take 10 mg by mouth daily. ??? atorvastatin (LIPITOR) 20 mg Tablet 20 mg daily. ??? dorzolamide-timolol (COSOPT) 22.3-6.8 mg/mL Drops Place into both eyes 2 times daily. ??? rabeprazole (ACIPHEX) 20 mg tablet Take 1 tablet by mouth 2 times daily. (Patient taking differently: Take 20 mg by mouth daily.) 30 tablet 12 No current facility-administered medications on file prior to visit. Allergies: Patient has no known allergies. Surgical History: Past Surgical History: Procedure Laterality Date ??? PRG SOMATOSENSORY TEST, ANY/ALL PER. NERVES, TRUNK OR HEAD N/A 03/31/2021 FACIAL NERVE MONITORING, SETUP PERIPHERAL (WRVU 0.54) performed by Apolinar Hernández MD at [facility] OR ??? PRG SOMATOSENSORY TEST, ANY/ALL PER. NERVES, TRUNK OR HEAD Left 06/28/2021 FACIAL NERVE MONITORING, SETUP PERIPHERAL (WRVU 0.54) performed by Apolinar Hernández MD at [facility] OR ??? PRO ADJ TISS TRANSFER/REARRANGEMENT ANY AREA 30.1-60 SQCM Left 06/28/2021 ADJACENT TISSUE TRANSFER OR REARRANGEMENT; 30.1 TO 60.0 SQ CM, HEAD/NECK (WRVU 12.65) performed by Jose D Hoang MD at [facility] OR ??? PRO COLONOSCOPY, BIOPSY 10/09/2012 COLONOSCOPY FLEXIBLE, WITH BX performed by Xiang Owen MD at [facility] ? ? PRO DEBRIDEMENT MUSCLE AND FASCIA 20 SQ CM/< Left 08/15/2021 DEBRIDEMENT SKIN, SUBCU, MUSCLE, HEAD/NECK (WRVU 2.7) performed by Jose D Hoang MD at [facility] OR ??? PRO EXC PAROTD, TOTAL, DISSECT 5TH NERV Left 06/28/2021 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, TOTAL, WITH DISSECTION AND PRESERVATION OF FACIAL NERVE(WRVU 19.53) performed by Jose D Hoang MD at [facility] OR ??? PRO MASTOIDECTOMY, COMPLETE Left 06/28/2021 MASTOIDECTOMY, COMPLETE (WRVU 12.56) performed by Apolinar Hernández MD at [facility] OR ??? PRO MICROSURG TECHNIQUES, REQ OPER MICROSCOPE Left 03/31/2021 MICROSCOPE USE (WRVU 3.46) performed by Apolinar Hernández MD at [facility] OR ??? PRO MICROSURG TECHNIQUES, REQ OPER MICROSCOPE N/A 06/28/2021 MICROSCOPE USE (WRVU 3.46) performed by Apolinar Hernández MD at [facility] OR ? ? PRO MUSCLE MYOCUTANEOUS/FASCIOUCUTANEOUS FLAP HEAD&NECK W/NAMED VASC PEDCL Left 06/28/2021 FLAP, MYOCUTANEOUS OR FASCIOCUTANEOUS, HEAD & NECK W NAMED VASC PEDICLE performed by Jose D Hoang MD at [facility] OR ? ? PRO MUSCLE MYOCUTANEOUS/FASCIOUCUTANEOUS FLAP HEAD&NECK W/NAMED VASC PEDCL Left 08/15/2021 FLAP, MYOCUTANEOUS OR FASCIOCUTANEOUS, HEAD & NECK W NAMED VASC PEDICLE performed by Jose D Hoang MD at [facility] OR ??? PRO REMOVAL NODES, NECK, CERV MOD RAD Left 06/28/2021 @CERVICAL LYMPHADENECTOMY (MODIFIED RADICAL NECK DISSECTION) (WRVU 23.95) performed by Jose D Hoang MD at [facility] OR ??? PRO RESECT TEMPORAL BONE, CRIMINALIST TECHNICIAN APPRCH Left 06/28/2021 @RESECTION TEMPORAL BONE, EXTERNAL APPROACH (WRVU 37.42) [facility] ??? PRO TYMPANOPLASTY Left 03/31/2021 TYMPANOPLASTY (WRVU 10.05) performed by Apolinar Hernández MD at [facility] OR ??? PRO UPPER GI ENDOSCOPY, BIOPSY 03/20/2011 UPPER GASTROINTESTINAL ENDOSCOPY,WITH BIOPSY SINGLE OR MULTIPLE performed by JORDAN RAMOS at [facility] Family and Social History Family History: No family history on file. Social History: Lives [place] [phone] Social History Socioeconomic History ??? Marital status: Spouse name: Not on file ??? Number of children: Not on file ??? Years of education: Not on file ??? Highest education level: Not on file Occupational History ??? Not on file Tobacco Use ??? Smoking status: Never Smoker ??? Smokeless tobacco: Never Used Vaping Use ??? Vaping Use: Never used Substance and Sexual Activity ??? Alcohol use: No ??? Drug use: Never ??? Sexual activity: Not on file Other Topics Concern ??? Not on file Social History Narrative ??? Not on file Social Determinants of Health Financial Resource Strain: Medium Risk ??? Difficulty of Paying Living Expenses: Somewhat hard Food Insecurity: No Food Insecurity ??? Worried About Running Out of Food in the Last Year: Never true ??? Ran Out of Food in the Last Year: Never true Transportation Needs: No Transportation Needs ??? Lack of Transportation (Medical): No ??? Lack of Transportation (Non-Medical): No Physical Activity: Not on file Housing Stability: Low Risk ??? Unable to Pay for Housing in the Last Year: No ??? Number of Places Lived in the Last Year: 1 ??? Unstable Housing in the Last Year: No Physical Exam Temperature: Heart Rate: Blood Pressure: Respiratory Rate: SpO2: General: Alert and oriented. No acute distress. Head and Face: Head is normocephalic, atraumatic. Very subtle left oral commissure weakness, HB1/2. Eyes: Conjugate gaze, ocular motility intact bilaterally. No spontaneous or gaze evoked nystagmus. Neurologic: Cranial Nerves II-XII grossly intact and symmetric. There is suggestion of slight weakness in the distribution of the marginal mandibular nerve on the left. Ears: External ears without deformity. See documentation of otomicroscopy below. Nose: External nose is midline without deformity or lesion. Normal exam of the septum and turbinates. Oral: There are no visible or palpable buccal, gingival, lingual, or palatal lesions. The floor of mouth is soft and flat. Oropharynx: Normal exam of the tonsils, tonsillar fossa, soft palate, and posterior pharynx. Salivary: Normal exam of the parotid and submandibular glands. Hem/Lymph/Imm: Neck supple without cervical mass or lymphadenopathy. Well healed post-surgical scar. Skin: Skin survey of the head and neck is without concerning lesion. MSK: Normal neck range of motion. No trismus. Resp: Breathing comfortably without stridor or retractions. Normal respirations. CV: Normal carotid pulses. Psych: Normal mood and affect. Labs and Imaging I reviewed the following imaging studies: CT NECK SOFT TISSUE W CONTRAST, CT TEMPORAL BONE W CONTRAST 01/30/2022 ?? 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 Adjuvant radiotherapy?completed 10/31/21.? TECHNIQUE: CT neck and temporal bone were performed after the intravenous administration of 110 mL of Omnipaque 350 contrast. ?? COMPARISON: None ?? FINDINGS: ?? CT neck: Patient is status post bilateral canal wall down mastoidectomies. Addition, there has been prior placement of a flap over a revision left mastoidectomy for known squamous cell carcinoma. No focal enhancement or masslike lesion to suggest local recurrence. ?? No primary mass lesion elsewhere throughout the neck. ?? Postsurgical changes are noted in the left neck from prior neck dissection. No cervical lymphadenopathy bilaterally. ?? No pulmonary nodules in the visualized portions of the lungs. No focal osseous lesions to suggest osseous metastases. The visualized portions of the brain are grossly normal. ? CT temporal bone: No abnormal enhancement. ?? LEFT TEMPORAL BONE: Prior left canal wall down mastoidectomy changes with overlying flap reconstruction covering the surgical defect. There is thinning and focal dehiscence of the tegmen tympani. The course of the facial nerve is normal noting that the lateral wall of the majority of the facial nerve canal is thinned or surgically absent. The vestibular apparatus is normal as is the cochlea. There is no dehiscence of the superior semicircular canal. The modiolus is present. There is no evidence of otospongiosis about the labyrinthine structures. The vestibular aqueduct is normal in caliber. ? RIGHT TEMPORAL BONE: Prior right canal wall down mastoidectomy changes. Mild thickening of the tympanic membrane. The ossicular chain is absent. Minimal opacity in the middle ear cavity. 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 The course of the facial nerve is normal. The sinus tympani, facial nerve recess, and round window niche are all clear. The vestibular apparatus is normal as is the cochlea. There is no dehiscence of the superior semicircular canal. The modiolus is present. There is no evidence of otospongiosis about the labyrinthine structures. The vestibular aqueduct is normal in caliber. ? IMPRESSION CT neck and temporal bone: 1. No evidence of local tumor recurrence in the left temporal bone. 2. No cervical lymphadenopathy. 3. No evidence of regional distant metastatic disease. 4. Bilateral temporal bone postsurgical changes as discussed. ?? Procedures Ears examined and cleaned with aid of binocular microscopy. ?? Right Ear: Auricle normal. Well healed postauricular scar. Widened meatus. Mastoid cavity without significant debris. Sinodural angle clear. Neomembrane in continuity with drum precluding full visualization of epitympanum. Lateral SCC clear without evident fistula. Facial ridge adequately lowered. Drum intact. Middle ear appears clear. No evident cholesteatoma. ?? Left Ear: Auricle normal. Well healed postauricular scar. Blind sac meatus. Well healed without evidence of cutaneous fistula. ASSESSMENT & RECOMMENDATIONS Suman Warner is a 66 y.o. male with history of pT3/4N0cM0 SCCa of the Left Middle Ear/TympanicMembrane (LVI-, PNI-, DEVYN-; 0/ nodes) s/p resection with modified subtotal temporal bone resection and selective neck dissection with submental flap reconstruction and ear overclosure with Dr. Marcel Hoang 06/28/21. He required flap debridement and temporalis mucsle flap 08/15/21. He has undergone adjuvant XRT without significant concern. He continues to recover well from surgery. Suspect positional vertigo episodes lasting seconds were related to BPPV. He has a past history of such. Recommend continued observation for now. Last audiogram 07/07/21 with significant conductive loss. Will not likely benefit from bone conduction device hearing support given current bone conduction thresholds. He does not feel significantly bothered by his hearing deficits. Continues RIGHT SNYDER use. CT PET June with PET CT standard plus head and neck, focus on Temporal Bone Follow up with Dr. Hernández and Dr. Hoang at same time. Caridad Sifuentes MD, PGY2 02/05/2022 11:57 AM Pager #[phone] Otolaryngology Attending Physician Addendum I have seen and examined the patient and reviewed the resident's history and I agree with the details as written. The assessment and plan were formulated in discussion with me and I agree with them as documented. Total time spent counseling and coordinating patient care 30 minutes. Apolinar Hernández MD Otology / Neurotology Otolaryngology - Head & Neck Surgery [facility] documented in this encounter Plan of Treatment Upcoming Encounters Date Type Department Care Team (Late st Contact Info) Description 04/29/2024 11:00 AM EST Office Visit Radiation Oncology at [address] [phone] Tyrese Fitzgerald MD 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
--- OUTSIDE RECORDS SUMMARY | 2024-02-10 15:15 | XMS_ITS | Encounter Summary ---
Author Organization [facility] Address [facility] [place] [address] Care Team Providers Care Residential Real Estate Agent Name Role Phone Ilya Medina MD Primary Care Provider [phone] Reason for Visit * Reason Comments Follow-up Encounter Details Date Type Department Care Team (Late st Contact Info) Description 08/09/2022 3:00 PM EDT Office [place] [address] Tyrese Fitzgerald MD [facility] [address] Malignant neoplasm of bones of skull and [...] Sign Reading Time Taken Comments Blood Pressure 138/86 08/09/2022 3:08 PM EDT Pulse 75 08/09/2022 3:08 PM EDT Temperature 36.2 ??C (97.1 ??F) 08/09/2022 3:08 PM ED T Respiratory Rate 18 08/09/2022 3:08 PM EDT Oxygen Saturation 100% 08/09/2022 3:08 PM EDT Inhaled Oxygen Concentration - - Weight 113.4 kg (250 lb) 08/09/2022 3:08 PM EDT per pt. Height - - Body Mass Index 35.87 02/05/2022 11:30 AM EDT documented in this encounter Progress Notes * Tyrese Fitzgerald MD - 08/09/2022 3:00 PM EDT Images from the original note were not included. 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 Adjuvant radiotherapy. ?? Details: ?? Presentation ? 66 year old male with a PMH significant for HTN, SARITA, GERD, chronic bilateral ear disease (surgery 1968, left, for cholesteatoma; revision tympanomastoidectomy with ossicular chain reconstruction ~ 2001; right modified canal wall tympanomastoidectomy 2002; bilateral hearing aids since 1999). He noted increased otorrhea (left) in the spring, and saw Dr. Trinidad. He was noted [...] he undergo surgical resection, as noted below. ?? Staging & Therapy ? CT Temporal Bone without contrast / Neck w/ contrast 02/23/21: 1. Bilateral tympanomastoidectomy changes with nonspecific soft tissue attenuation filling the obliterated left middle ear cavity representing biopsy- proven squamous cell carcinoma. 2. Mild erosive changes involving the left cochlear promontory. 3. No lymphadenopathy. ?? Left Tympanoplasty, Biopsies 03/31/21: -Pathology: ??A - Left ear hypotympanum, biopsy - Squamous cell carcinoma (fragments),(in- situ and invasive) well to moderately differentiated. B - Left posterior inferior drum & skin flap, excision - Squamous cell carcinoma,(fragments), well to moderately differentiated. The tumor ??appears to invade to a depth of 3-mm [...] (in-situ and invasive) well to moderately differentiated. ?? PET-CT 05/04/21: 1. ??Small ill-defined focus of mildly increased activity in the region of the inferior left middleear, which is nonspecific and may represent an area of chronic inflammation, however, a neoplastic process not excluded. 2. ??No other significant abnormalities. ?? Left Subtotal Temporal Bone Resection in setting of Prior Canal Wall Down Mastoidectomy, Left Neck Dissection Level IB, IIA, & III, Left Superficial Inferior Lobe Parotidectomy, Left Submental Myocutaneous Flap (5 cm x 8 cm) 06/28/21 -Findings: Surgical Resection with??Left Subtotal Temporal Bone Resection in setting of Prior CanalWall Down Mastoidectomy and Left Superficial Inferior Lobe Parotidectomy??performed via??post-auricular combined with cervical approach??approach. Tumor noted predominantly along the entire tympanic [...] involving the specimen margin abutting tympanic membrane. ?(see Discussion.) B - LEFT posterior/lateral mastoid contents, biopsy: ??- Hyperkeratotic squamous epithelium and fibrous soft tissue. ??- Acellular keratinous debris. ??- There is no evidence of malignancy. C - LEFT anterolateral canal margin, biopsy: ??- Skin of ear canal with focal atypia and marked cautery artifact. ??- No definite carcinoma identified. D - LEFT inferior drum and canal skin, biopsy: ??- Squamous cell carcinoma, invasive and in situ (~6 mm in greatest span). ??- Invasive carcinoma involves the anterior specimen margin. ??- Carcinoma in situ is present <0.1 mm to the canal skin margin. E - LEFT anterior canal skin and anterior tympanic membrane, biopsy: ??- Squamous cell carcinoma, invasive and in situ. ??- Invasive carcinoma is present at the specimen margin adjacent ? to oval window annotation. ??- Invasive and in situ carcinoma is present at both the ? TM and hypotympanum/inferior specimen margins. F - LEFT hypotympanum, biopsy: ??- Invasive squamous cell carcinoma, extensively involving specimen edges. G - LEFT tissue at round window, biopsy: ??- Benign fibrous and glandular tissue. H - Left neck dissection level 2A, excision: ??- Seven lymph nodes, ?? negative for malignancy. (0/7) I - LEFT tissue at digastric ridge, excision: ??- Sclerotic fibrous tissue, ?? negative for malignancy. J - LEFT tragus, excision: ??- Sclerotic fibrous tissue and cartilage, negative for malignancy. K - LEFT neck level 3, excision: ??- Nine lymph node, ??negative for malignancy.??(0/9) L - LEFT parotid, excision: ??- Parotid gland tissue, ?? negative for malignancy. M - LEFT superficial lobe of parotid, excision: ??- Parotid gland, fibrous tissue, and nerve tissue, negative for malignancy. ??- Four lymph nodes, ?? negative for malignancy. (0/4) N - Left perifacial node, excision: ??- Two lymph nodes, ??negative for malignancy. (0/2) O - Left neck level 1B, excision: ??- Submandibular gland tissue, ??negative for malignancy. ??- Fibroadipose tissue, ??negative for malignancy. DISCUSSION It is difficult to assign an AJCC pathologic stage due to the inability to assess ??largest tumor dimension. No perineural or lymphovascular invasion is recognized. ??Clinical/surgical correlation is needed to determine final margin status with regard ??to separately submitted involved specimens. ?? MDTB Discussion : Patient is staged at a pT3 based on Modified Weinert Staging System for Temporal Bone SCCa. We [...] the round window), jugular and carotid canal. ?? Adjuvant Radiotherapy TREATMENT DETAILS Treatment Intent Curative Site Treated Post-operative bed Technique VMAT Adaptive Plan Required No Concurrent Chemo No Clinical Trial No TECHNICAL DETAILS ? Total Dose: 60 Gy @ 2 Gy/fxn ? PLAN IMAGES ? Post-Treatment Course: CT Temporal Bone / Neck [...] temporal bone, without evidence of disease recurrence. Time from RT completion: ~ 9 months Interval History: no issues Currently, [...] reviewed the imaging studies referenced above. Exam: Patient Vitals for the past 24 hrs: Temp Pulse Resp BP SpO2 08/09/22 1508 36.2 ??C (97.1 ??F) 75 18 138/86 100 % Physical Exam Constitutional: Appearance: He is well-developed. [...] all pre-disease performance without restriction Summary/Recommendations: Impression: 1. Disease Status: DMITRIY clinically and by imaging We discussed that he is still at risk of recurrence and requires continued surveillance 2. Toxicity: ??? Minimal toxicity ??? Dental Care: regular dental care Plan: 1. Follow per HN grid Thank you for allowing me to participate in the care of Suman Warner. TYRESE FITZGERLAD MD New Orders: No orders of the defined types were placed in this encounter. ??? National [facility] [place] (N[facility]) [facility] ??? [employer] Commission on Cancer ([employer] [place]) Accredited Cancer Program ??? 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
--- OUTSIDE RECORDS SUMMARY | 2024-02-10 15:15 | XMS_ITS | Encounter Summary ---
Author Organization [facility] [place] [address] Care Team Providers Care Cash Application Representative Name Role Phone Ilya Medina MD Primary Care Provider [phone] Encounter Details Date Type Department Care Team (Late st Contact Info) Description 10/18/2021 10:00 AM EDT Office Visit Hematology/Oncology at [address] [phone] [facility] [address] [place] [address] Malignant neoplasm of bones of skull and [...] place to sleep or slept in a residential (including now)? No 07/19/2021 Sex and Gender Information Value Date Recorded Sex Assigned at Male 03/25/2021 10:08 AM EST Gender Identity Male 03/25/2021 10:08 AM EST Sexual Orientation Straight 03/25/2021 10 :08 AM EST documented as of this encounter Progress Notes * Roseanna Wyatt RD - 10/18/2021 10:00 AM EDT Nutrition Note Met with patient briefly after RT today. He started RT for HN cancer on 09/19/21. He reports poor taste continues. He has mild xerostomia and is using BSSW rinses. He does not have any nausea and BMs are normal. Wt Readings from Last 3 Encounters: 10/18/21 114.2 kg (251 lb 12.8 oz) 10/11/21 113 kg (249 lb 3.2 oz) 10/04/21 114.3 kg (252 lb) 09/20/21 251# Start Patient's weight has been stable since start of treatment 4 weeks ago. Recommend continue to eat regular meals and snacks despite taste changes. Will f/u on 10/25. 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
--- OUTSIDE RECORDS SUMMARY | 2024-02-10 15:15 | XMS_ITS | Encounter Summary ---
Author Organization [facility] [place] [address] Care Team Providers Care Front Office Director Name Role Phone Ilya Medina MD Primary Care Provider [phone] Encounter Details Date Type Department Care Team (Late st Contact Info) Description 10/04/2021 1:00 PM EDT Office Visit Hematology/Oncology at [address] [phone] [facility] [address] [place] [address] Malignant neoplasm of bones of skull and [...] place to sleep or slept in a correction (including now)? No 07/19/2021 Sex and Gender Information Value Date Recorded Sex Assigned at Male 03/25/2021 10:08 AM EST Gender Identity Male 03/25/2021 10:08 AM EST Sexual Orientation Straight 03/25/2021 10 :08 AM EST documented as of this encounter Progress Notes * Roseanna Wyatt RD - 10/04/2021 1:00 PM EDT Nutrition Note Patient started adjuvant RT for HN cancer on 09/19/21; he is now in his third week of treatment. He is having some mild xerostomia and moderate dysgeusia. Wt Readings from Last 3 Encounters: 10/04/21 114.3 kg (252 lb) 10/02/21 114 kg (251 lb 6.4 oz) 09/27/21 113.7 kg (250 lb 9.6 oz) 09/20/21 113.9 kg (251 lb 3.2 oz) start on 09/1909/06/21 115.3 kg (254 lb 3.2 oz) 08/24/21 113.4 kg (250 lb) 06/28/21 250# Surgery date UBW: 250# Weight is stable since start of treatment three weeks ago. Encouraged patient continue with good PO intake and adequate fluid intake. Discussed some strategies for coping with taste changes. Will f/u next week. documented in this encounter Plan of Treatment Upcoming Encounters Date Type Department Care Team (Late st Contact Info) Description 04/29/2024 11:00 AM EST Office Visit Radiation Oncology at [address] [phone] Tyrese Fitzgerald MD [facility] [place] [address] documented as of this encounter Visit Diagnoses Diagnosis 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, except mandible documented in this encounter Care Teams Front Office Director Relationship 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
--- OUTSIDE RECORDS SUMMARY | 2024-02-10 15:15 | XMS_ITS | Encounter Summary ---
Author Organization [facility] Address [facility] [place] [address] Care Team Providers Care Tandem Mill Operator Name Role Phone Ilya Medina MD Primary Care Provider [phone] Reason for Visit * Reason Comments On Treatment Visit Encounter Details Date Type Department Care Team (Late st Contact Info) Description 10/24/2021 9:15 AM EDT Office Visit Radiation Oncology at [address] [phone] Maria E Ace MD [facility] [address] Malignant neoplasm of bones of skull and [...] Sign Reading Time Taken Comments Blood Pressure 129/82 10/24/2021 9:00 AM EDT Pulse 56 10/24/2021 9:00 AM EDT Temperature 36.5 ??C (97.7 ??F) 10/24/2021 9:00 AM ED T Respiratory Rate 18 10/24/2021 9:00 AM EDT Oxygen Saturation 100% 10/24/2021 9:00 AM EDT Inhaled Oxygen Concentration - - Weight 113.2 kg (249 lb 9.6 oz) 10/24/2021 9:00 AM EDT Height - - Body Mass Index 35.81 10/18/2021 9:14 AM EDT documented in this encounter Progress Notes * Maria E Ace MD - 10/24/2021 9:15 AM EDT ON TREATMENT VISIT NOTE Suman Warner is a 66 y.o. 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 Adjuvant radiotherapy. Current treatment dose: 50 Gy in 25 fractions. Anticipated total dose: 60 Gy in 30 fractions. Concomitant Therapy: N Evaluation of Port Verification Films: PORT films have been reviewed, please see ARIA for details. Changes in medical condition Pain: no issues Secretions/Dryness: mild xerostomia, moderate dysgeusia. Using BSSW rinses a couple times/d. Swallowing Function: no issues Nutrition / G tube: no G tube, all by mouth Skin: no issues GI: -N/V: no nausea, Zofran prn -Bowels: no issues Dizziness: he notes dizziness when lying flat on his back. He notices a sensation of lightheadedness when this happening. The sensation resolves quickly, ~ 5 seconds. Nutrition Assessment: Weight : 113.9 kg initial Change: 113 => 113.2 Objective: Vitals: 10/24/21 0900 BP: 129/82 Patient Position: Sitting Pulse: 56 Resp: 18 Temp: 36.5 ??C (97.7 ??F) TempSrc: Temporal SpO2: 100% Weight: 113.2 kg (249 lb 9.6 oz) SKIN: mild skin erythema HEENT: no mucositis Assessment: Mild toxicity CTCAE TOXICITY GRADES (see below for mims): Site Grade Skin 1 Xerostomia 0 Pharyngeal Mucositis 0 Dysphagia 0 Hoarseness 0 TREATMENT RESPONSE: No change Plan: ?? Continue RT per prescription ?? Pain control: none needed at this time ?? Skin: Ptplex cream prn ?? Mucositis: ?? Pain control: see above ?? Oral hygiene consisting of baking soda/salt rinse prn; advised @ least 3 times/d. ?? Alimentation: children's entertainer following ?? Weight stable, all by mouth at this time ?? GI: ?? NV: Zofran prn ?? Bowels: No issues CTCAE v4.03 scales for reference Skin 0 1 2 3 4 No change from baseline Faint erythema or dry desquamation Moderate to brisk erythema; patchy moistdesquamation mostly confined to skin folds & creases; moderate edema Moist desquamation in areas other than skin folds and creases; bleeding induced by minor trauma or abrasion Life threatening consequences; skin necrosis or ulceration of full thickness dermis; spontaneous bleeding; skin graft indicated Xerostomia 0 1 2 3 4 No change from baseline Symptomatic (dry or thick saliva) without significant dietary alteration Moderate sx: oral intake alterations (e.g. copious water, diet limited to purees or soft, moist foods)Inability to adequately aliment orally, TPN or PEG indicated NA Pharyngeal Mucositis: 0 1 2 3 4 No change from baseline Asymptomatic or mild symptoms; normal oral intake; mild pain but analgesia not indicated Moderate pain and analgesics indicated; altered oral intake; limiting instrumental ADLs Severe pain, unable to adequately aliment or hydrate orally; limiting self care ADLs Life threatening consequences; urgent intervention indicated Dysphagia 0 1 2 3 4 No change from baseline Symptomatic, able to eat regular diet Symptomatic and altered eating/swallowing Severely altered eating/swallowing; tube feeds, TPN or hospitalization indicated Life threatening consequences; urgent intervention indicated Hoarseness 0 1 2 3 4 No change from baseline Mild or intermittent voice change; fully understandable, self-resolves Moderate or persistent voice change; may require occasional repetition but understandable on telephone Severe voice change including predominantly whispered speech NA documented in this encounter Plan of Treatment Upcoming Encounters Date Type Department Care Team (Late st Contact Info) Description 04/29/2024 11:00 AM EST Office Visit Radiation Oncology at [address] [phone] Tyrese Fitzgerlad MD [facility] [place] [address] documented as of this encounter Visit Diagnoses Diagnosis 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
--- OUTSIDE RECORDS SUMMARY | 2024-02-10 15:15 | XMS_ITS | Encounter Summary ---
Author Organization [facility] Address [facility] [place] [address] Care Team Providers Care Civil Engineering Drafter Name Role Phone Ilya Medina MD Primary Care Provider [phone] Encounter Details Date Type Department Care Team (Latest Contact Info) Description 08/09/2022 Travel Social History Tobacco Use Types Packs/Day [...] place to sleep or slept in a long term (including now)? No 07/19/2021 Sex and Gender [...] EST Office Visit Radiation Oncology at [address] [phone] Tyrese Fitzgerald MD [facility] [place] [address] documented as of this encounter Visit Diagnoses Not on filedocumented in this encounter Care Teams Civil Engineering Drafter Relationship 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
--- OUTSIDE RECORDS SUMMARY | 2024-02-10 15:15 | XMS_ITS | Encounter Summary ---
Author Organization [facility] Address [facility] [place] [address] Care Team Providers Care Interactive Marketing Strategist Name Role Phone Ilya Medina MD Primary Care Provider [phone] Encounter Details Date Type Department Care Team (Late st Contact Info) Description 10/04/2021 12:00 PM EDT Office Visit Radiation Oncology at [address] [phone] Tyrese Fitzgerald MD [facility] [place] [address] Nausea without vomiting Social History Tobacco Use Types Packs/Day Years [...] place to sleep or slept in a group home (including now)? No 07/19/2021 Sex and Gender Information Value Date Recorded Sex Assigned at Male 03/25/2021 10:08 AM EST Gender Identity Male 03/25/2021 10:08 AM EST Sexual Orientation Straight 03/25/2021 10 :08 AM EST documented as of this encounter Last Filed Vital Signs Vital Sign Reading Time Taken Comments Blood Pressure 129/83 10/04/2021 11:25 AM EDT Pulse 61 10/04/2021 11:25 AM EDT Temperature 37 ??C (98.6 ??F) 10/04/2021 11:25 AM EDT Respiratory Rate 20 10/04/2021 11:25 AM EDT Oxygen Saturation 99% 10/04/2021 11:25 AM EDT Inhaled Oxygen Concentration - - Weight 114.3 kg (252 lb) 10/04/2021 11:25 AM EDT Height - - Body Mass Index 36.16 08/24/2021 12:50 PM EDT documented in this encounter Progress Notes * Tyrese Fitzgerald MD - 10/04/2021 12:00 PM EDT ON TREATMENT VISIT NOTE Suman Warner is a 66 y.o. 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 Adjuvant radiotherapy. Current treatment dose: 24 Gy in 12 fractions. Anticipated total dose: 60 Gy in 30 fractions. Concomitant Therapy: N Evaluation of Port Verification Films: PORT films have been reviewed, please see ARIA for details. Changes in medical condition Pain: no issues Secretions/Dryness: mild xerostomia, moderate dysgeusia Swallowing Function: no issues Nutrition / G tube: no G tube, all by mouth Skin: no issues GI: -N/V: increasing n/v, now resolved with Zofran -Bowels: no issues Other: Nutrition Assessment: Weight : 113.9 kg initial Change: 113.7 => 114.3 Objective: Vitals: 10/04/21 1125 BP: 129/83 Patient Position: Sitting Pulse: 61 Resp: 20 Temp: 37 ??C (98.6 ??F) TempSrc: Temporal SpO2: 99% Weight: 114.3 kg (252 lb) SKIN: mild skin erythema HEENT: no mucositis [...] Oral hygiene consisting of baking soda/salt rinse prn ?? Alimentation: management sme following ?? Weight stable, all by mouth [...] AM EST Office Visit Radiation Oncology at [address] [phone] Tyrese Fitzgerald MD [facility] [place] [address] documented as of this encounter Visit Diagnoses Diagnosis Nausea without vomiting documented in this encounter Care Teams Interactive Marketing Strategist Relationship 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
--- OUTSIDE RECORDS SUMMARY | 2024-02-10 15:15 | XMS_ITS | Encounter Summary ---
Author Organization [facility] Address [facility] [place] [address] Care Team Providers Care Vp Biology Name Role Phone Ilya Medina MD Primary Care Provider [phone] Encounter Details Date Type Department Care Team (Late st Contact Info) Description 06/07/2022 Orders Only [place] [address] Tyrese Fitzgerald MD [facility] [place] [address] Malignant neoplasm of bones of skull and [...] EST Office Visit Radiation Oncology at [address] [address] Tyrese Fitzgerald MD [facility] [place] [address] documented as of this encounter Results * Creatinine (08/09/2022 10:41 AM EDT) Creatinine 0.97 0.80 - 1.50 mg/dL [facility] Est Glomerular Filtration Rate 86 >=60 mL/min/1. 73 m?? [facility] Comment: This patient's estimated GFR was calculated using the 2020 CKD-EPI equation. The estimated GFR can vary from the measured GFR by up to 30% in the absence of rapidly changing kidney function. Assessment of the estimated GFR is not appropriate when creatinine concentrations are rapidly changing. For clinical situations in which a more precise estimate of GFR is necessary, consider alternative methods of GFR estimation such as a 24-hour urine creatinine clearance. Assignment of CKD stage 1-5 for patients with an eGFR near the transition point between stages may be based on clinical assessment of muscle mass and symptoms in addition to eGFR. 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
--- OUTSIDE RECORDS SUMMARY | 2024-02-10 15:15 | XMS_ITS | Encounter Summary ---
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, except mandible Procedures CT Temporal Bone w Contrast Kalie Guillermo MD [facility] [place] [address] [facility] [place] [address] Referral ID Status Reason Start Date Expiration Date V isits Requested Visits Authorized [id number] Closed Specialty Service Requested 06/06/2022 12/05/2023 1 1 Encounter Details Date Type Department Care Team (Late st Contact Info) Description 06/06/2022 2:00 PM EST Office Visit Radiation Oncology at [address] [phone] Tyrese Fitzgerald MD [facility] [place] [address] Malignant neoplasm of bones of skull and [...] Sign Reading Time Taken Comments Blood Pressure 139/77 06/06/2022 2:19 PM EST Pulse 59 06/06/2022 2:19 PM EST Temperature 36.1 ??C (97 ??F) 06/06/2022 2:1 9 PM EST Respiratory Rate 18 06/06/2022 2:19 PM EST Oxygen Saturation 100% 06/06/2022 2:1 9 PM EST Inhaled Oxygen Concentration - - Weight 115.5 kg (254 lb 9.6 oz) 023 2:19 PM EST with shoes Height - - Body Mass Index 36.53 02/05/2022 11:30 AM EDT documented in this encounter Progress Notes * Kalie Guillermo MD - 06/06/2022 2:00 PM EST Images from the original note were not included. 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 ?? MDTB Discussion 3/322: Patient is staged at a pT3 based on Modified [place] Staging System for Temporal Bone SCCa. We [...] Bilateral temporal bone postsurgical changes as discussed. Time from RT completion: ~ 7 months Interval History: no issues Currently, he has the following symptoms: Symptom Description Intervention Pain Denies Dysphagia Denies- no difficulty chewing Xerostomia / Dysgeusia Mild, occasional xerostomia. Denies dysgeusia. Water, dry mouth mouthwash (Act) Neck Fibrosis / Lymphedema / Pain Denies Dental Regular dental care, fluoride tooth paste Nutrition Issues / Weight Loss No issues Feeding Tube Not Present Skin Denies Otalgia / Hearing Changes No issues Smoking Status Not smoking Voice Changes Denies Other No Issues I have personally reviewed the imaging studies referenced above. Exam: Patient Vitals for the past 24 hrs: Temp Pulse Resp BP SpO2 06/06/22 1419 36.1 ??C (97 ??F) 59 18 139/77 100 % Physical Exam Constitutional: Appearance: He [...] restriction Summary/Recommendations: Impression: 1. Disease Status: DMITRIY clinically. We discussed that he is still at risk of recurrence and requires continued surveillance 2. Toxicity: ??? Minimal toxicity ??? Dental Care: regular dental care Plan: 1. Follow per HN grid 2. Plan for imaging every 6 months given limitations of physical exam Thank you for allowing me to participate in the care of Suman Warner. Meron Guillermo MD PGY3 Attending Statement: I saw the patient with Dr. Guillermo and agree with the history, physical, assessment, and plan as stated. -Tyrese Fitzgerald MD, PhD New Orders: Orders Placed This Encounter Procedures ??? CT Temporal Bone w Contrast ??? National Cancer [place] (NCI) Comprehensive Cancer Center ??? [employer] Commission on Cancer (ACS [place]) Accredited Cancer Program ??? [employer] (ACR) Accredited Radiation Oncology Program documented in this encounter Plan of Treatment Upcoming Encounters Date Type Department Care Team (Late st Contact Info) Description 04/29/2024 11:00 AM EST Office Visit Radiation Oncology at [address] [address] Tyrese Fitzgerald MD [facility] [place] [address] documented as of this encounter Results * CT Temporal Bone w Contrast (08/09/2022 12:23 PM EDT) Anatomical Region Laterality Modality Head Computed Tomogra phy Impressions 08/10/2022 10:49 AM EDT 1. ??Stable right temporal bone evaluation. 2. ??Stable postoperative appearance of the left temporal bone, without evidence of disease recurrence. I have personally reviewed the image(s) and the resident's interpretation and agree with the findings, Jose Walters DO at 08/10/2022 10:49 AM Thank you for letting us participate in the care of this patient. ??If you are a health care provider and have any questions regarding this report, please contact the number below. ??For patients who have questions please contact the health patient care technician that requested your imaging first. ? Narrative 08/10/2022 10:49 AM EDT EXAMINATION: CT TEMPORAL BONE W CONTRAST CLINICAL HISTORY: 67yo w/ h/o of SCCa of the left temporal bone s/p surgery and adjuvant radiation completed 10/31/21 TECHNIQUE: CT temporal bones performed after the intravenous administration of contrast. Administered 110.0 ml of OMNIPAQUE 350.00 mg/ml. COMPARISON: CT Temporal Bones 01/30/2022 FINDINGS: Right temporal bone: Postsurgical changes of prior right canal wall down mastoidectomy. Stapes is in stable position. No evidence of significant progressive soft tissue or fluid opacification of the right middle cavity. There is no interval bone demineralization or erosion identified. The otic capsule is intact. No interval defects of the tegmen. Similar thinning of the sigmoid plate. Left temporal bone: Left canal wall down mastoidectomy with flap reconstruction. Stable appearance of enhancing soft tissue in the mastoidectomy defect and external auditory canal. No increasing mass effect or new focal enhancing mass to suggest disease recurrence. No regional adenopathy. Similar postoperative soft tissue thickening deep to the pinna. No interval bony erosions identified, focal thinning again noted of the sigmoid plate, and facial nerve canal. The otic capsule is intact, the IAC and included intracranial compartment is unremarkable. Procedure Note Jose Walters DO - 08/10/2022 EXAMINATION: CT TEMPORAL BONE W CONTRAST CLINICAL HISTORY: 67yo w/ h/o of SCCa of the left temporal bone s/psurgery and adjuvant radiation completed 10/31/21 TECHNIQUE: CT temporal bones performed after the intravenous administration ofcontrast. Administered 110.0 ml of OMNIPAQUE 350.00 mg/ml. COMPARISON: CT Temporal Bones 01/30/2022 FINDINGS: Right temporal bone: Postsurgical changes of prior right canal wall down mastoidectomy. Stapesis in stable position. No evidence of significant progressive soft tissue orfluid opacification of the right middle cavity. There is no interval bone demineralization or erosion identified. The otic capsule is intact. Nointerval defects of the tegmen. Similar thinning of the sigmoid plate. Left temporal bone: Left canal wall down mastoidectomy with flap reconstruction. Stableappearance of enhancing soft tissue in the mastoidectomy defect and externalauditory canal. No increasing mass effect or new focal enhancing mass to suggestdisease recurrence. No regional adenopathy. Similar postoperative soft tissuethickening deep to the pinna. No interval bony erosions identified, focal thinningagain noted of the sigmoid plate, and facial nerve canal. The otic capsule isintact, the IAC and included intracranial compartment is unremarkable. IMPRESSION 1. Stable right temporal bone evaluation. 2. Stable postoperative appearance of the left temporal bone, withoutevidence of disease recurrence. I have personally reviewed the image(s) and the resident's interpretationand agree with the findings, Jose Walters DO at 08/10/2022 10:49 AM Thank you for letting us participate in the care of this patient. If youare a health care provider and have any questions regarding this report,please contact the number below. For patients who have questions please contactthe health patient care technician that requested your imaging first. 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
--- OUTSIDE RECORDS SUMMARY | 2024-02-10 15:15 | XMS_ITS | Encounter Summary ---
Author Organization [facility] Address [facility] [place] [address] Care Team Providers Care Phlebotomist Prn Name Role Phone Ilya Medina MD Primary Care Provider [phone] Encounter Details Date Type Department Care Team (Late st Contact Info) Description 01/16/2023 9:30 AM EDT Office Visit Radiation Oncology at [address] [address] Tyrese Fitzgerald MD [facility] [place] [address] Malignant neoplasm of bones of skull and [...] place to sleep or slept in a detention (including now)? No 07/19/2021 Sex and Gender Information Value Date Recorded Sex Assigned at Male 03/25/2021 10:08 AM EST Gender Identity Male 03/25/2021 10:08 AM EST Sexual Orientation Straight 03/25/2021 10 :08 AM EST documented as of this encounter Last Filed Vital Signs Vital Sign Reading Time Taken Comments Blood Pressure 131/80 01/16/2023 9:45 AM EDT Pulse 65 01/16/2023 9:45 AM EDT Temperature 37.1 ??C (98.7 ??F) 01/16/2023 9 :45 AM EDT Respiratory Rate 18 01/16/2023 9:45 AM EDT Oxygen Saturation 99% 01/16/2023 9:4 5 AM EDT Inhaled Oxygen Concentration - - Weight 115.9 kg (255 lb 9.6 oz) 023 9:45 AM EDT with shoes Height - - Body Mass Index 36.67 08/09/2022 3:50 PM EDT documented in this encounter Progress Notes * Tyrese Fitzgerald MD - 01/16/2023 9:30 AM EDT Images from the original note were not included. 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 We [...] disease recurrence. Time from RT completion: ~ 1 year 2 months Interval History: no issues Currently, he [...] 24 hrs: Temp Pulse Resp BP SpO2 01/16/23 0945 37.1 ??C (98.7 ??F) 65 18 131/80 99 % Physical Exam Constitutional: Appearance: He is [...] Summary/Recommendations: Impression: Disease Status: DMITRIY clinically. We will repeat imaging given limitations in surveillance via physical exam. We discussed that he is still at risk of recurrence and requires continued surveillance 2. Toxicity: Minimal toxicity Dental Care: regular dental care Plan: Follow per [facility] grid Thank you for allowing me to participate in the care of Suman Warner. TYRESE FITZGERALD MD New Orders: Orders Placed This Encounter Procedures CT Temporal Bone w Contrast CT Neck Soft Tissue w Contrast (Generic) Creatinine National Cancer [place] (NCI) Comprehensive Cancer Center [employer] Commission on Cancer (ACS [place]) Accredited Cancer Program [employer] (ACR) Accredited Radiation Oncology Program documented in this encounter Plan of Treatment Upcoming Encounters Date Type Department Care Team (Late st Contact Info) Description 04/29/2024 11:00 AM EST Office Visit Radiation Oncology at [address] [address] Tyrese Fitzgerald MD [facility] [place] [address] documented as of this encounter Visit Diagnoses Diagnosis 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
--- OUTSIDE RECORDS SUMMARY | 2024-02-10 15:15 | XMS_ITS | Encounter Summary ---
Author Organization [facility] [address] Care Team Providers Care Sorter Pricer Name Role Phone Ilya Medina MD Primary Care Provider [phone] Encounter Details Date Type Department Care Team (Late st Contact Info) Description 10/30/2021 9:30 AM EDT Office Visit Hematology/Oncology at [address] [phone] [facility] DR HEMATOLOGY [place] [address] Malignant neoplasm of bones of skull and [...] - Inhaled Oxygen Concentration - - Weight 111.1 kg (245 lb) 10/30/2021 9:10 AM EDT Height - - Body Mass Index 35.15 10/25/2021 9:24 AM EDT documented in this encounter Progress Notes * Roseanna Wyatt, RD - 10/30/2021 9:30 AM EDT [facility] Nutrition Assessment Progress Note Suman Warner Diagnosis: squamous cell carcinoma of the left temporal bone, s/p left subtotal temporal bone resectio dylon the setting of prior canal wall down mastoidectomy, left neck dissection, superficial inferior lobe parotidectomy. Wt Readings from Last 3 Encounters: 10/30/21 111.1 kg (245 lb) 10/25/21 113.8 kg (250 lb 12.8 oz) 10/24/21 113.2 kg (249 lb 9.6 oz) 10/24/21 113.2 kg (249 lb 9.6 oz) 10/18/21 114.2 kg (251 lb 12.8 oz) 10/11/21 113 kg (249 lb 3.2 oz) ?? 10/04/21 114.3 kg (252 lb) 09/20/21?251#?Start BMI 35.1 5# loss in the past 5 days (2.4% body weight)--significant 6# loss since starting treatment 6 weeks ago (2.4% body weight) Assessment: Nutrition Screen 10/30/2021 10/11/2021 Reason for assessment High risk diagnosis;Symptom management - Total MST Score - 0 Functional Status 10/30/2021 09/22/2021 Appetite Reduced compared to usual intake Similar compared to usual intake Dysgeusia Present - Fatigue Grade 2 Grade 1 Patient reports he is feeling more tired, now in his final week of RT. He does not have any pain with swallowing. He does not have any dry mouth symptoms. He continues to have the most difficulty with taste changes. Patient started using BSSW, about 4-5 times/day in the past week. Food History, Access and Intake 09/22/2021 Who prepares meals? Patient/Self Patient reports he is still having a hard time with the taste changes associated with treatment. Hecan still sense a fairly appealing taste to vegetable soup, chicken noodle, and grilled cheese sandwiches. Medications: Zofran prn, Vitamin B12, Tylenol prn, ibuprofen prn, imodium every other day, prozac, lipitor Patient started RT on 09/19/21 and will complete treatment tomorrow 10/31. No updated labs Nutrition Diagnosis 10/30/2021 Problems Inadequate oral intake Etiology (related to) Daily H/N radiation therapy as evidenced by taste changes limiting PO intake per patient and 5# loss in the past week (2.4% body weight)--significant. Estimated needs based on current weight of 111.1 k kcals (25 kcal/kg) BMI 35.1 111 g protein (1g/kg) ~2.8 L fluid Intervention: * Encouraged continuing with soups and grilled cheese as well as trying other foods to discover what may taste acceptable. Encouraged higher calorie, cream based soups. * Provided samples and coupons for Ensure Plus or Ensure Complete. Suggested drinking 1-2 bottles per day to avoid further weight loss. 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
--- OUTSIDE RECORDS SUMMARY | 2024-02-10 15:15 | XMS_ITS | Encounter Summary ---
Author Organization [facility] Address [facility] [place] [address] Care Team Providers Care Search Planner Name Role Phone Ilya Medina MD Primary Care Provider [phone] Encounter Details Date Type Department Care Team (Late st Contact Info) Description 11/07/2022 Orders [place] [address] Caridad Sifuentes MD [facility] [place] [address] Social History Tobacco Use Types Packs/Day Years [...] place to sleep or slept in a mcfp (including now)? No 07/19/2021 Sex and Gender Information Value Date Recorded Sex Assigned at Male 03/25/2021 10:08 AM EST Gender Identity Male 03/25/2021 10:08 AM EST Sexual Orientation Straight 03/25/2021 10 :08 AM EST documented as of this encounter Plan of Treatment Upcoming Encounters Date Type Department Care Team (Late st Contact Info) Description 04/29/2024 11:00 AM EST Office Visit Radiation Oncology at [address] [phone] Tyrese Fitzgerald MD [facility] [place] [address] documented as of this encounter Visit Diagnoses Not on filedocumented in this encounter Care Teams Search Planner Relationship 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
--- OUTSIDE RECORDS SUMMARY | 2024-02-10 15:15 | XMS_ITS | Encounter Summary ---
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, except mandible Procedures CT Temporal Bone w Contrast Tyrese Fitzgerald MD [facility] [place] [address] [facility] [place] [address] Referral ID Status Reason Start Date Expiration Date V isits Requested Visits Authorized [id number] Closed Specialty Service Requested 01/02/2022 07/05/2023 1 1 * Diagnostic Test (Routine) - Closed Specialty Diagnoses / Procedures Referred By Contac t Referred To Contact Radiology Diagnoses 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, except mandible Procedures CT Neck Soft Tissue w Contrast (Generic) Tyrese Fitzgerald MD [facility] [place] [address] [facility] [place] [address] Referral ID Status Reason Start Date Expiration Date V isits Requested Visits Authorized [id number] Closed Specialty Service Requested 01/02/2022 07/05/2023 1 1 Encounter Details Date Type Department Care Team (Late st Contact Info) Description 01/02/2022 Orders Only Radiation Oncology at [facility] [place] [address] Tyrese Fitzgerald MD [facility] [place] [address] Malignant neoplasm of bones of skull and [...] AM EST Office Visit Radiation Oncology at [address] [address] Tyrese Fitzgerald MD [facility] [place] [address] documented as of this encounter Results * CT Temporal Bone w Contrast (01/30/2022 2:33 PM EDT) Anatomical Region Laterality Modality Head Computed Tomogra phy 01/30/2022 2:49 PM EDT Impressions 01/30/2022 3:[address] neck and temporal bone: 1. ??No evidence of local tumor recurrence in the left temporal bone. 2. ??No cervical lymphadenopathy. 3. ??No evidence of regional distant metastatic disease. 4. ??Bilateral temporal bone postsurgical changes as discussed. Thank you for letting us participate in the care of this patient. ??If you are a health care provider and have any questions regarding this report, please contact the number below. ??For patients who have questions please contact the health childbirth and infant care teacher that requested your imaging first. ? 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 Adjuvant radiotherapy?completed 10/31/21.?? TECHNIQUE: CT neck and temporal bone were performed after the intravenous administration of 110 mL of Omnipaque 350 contrast. COMPARISON: None FINDINGS: CT neck: Patient is status post bilateral canal wall down mastoidectomies. Addition, there has been prior placement of a flap over a revision left mastoidectomy for known squamous cell carcinoma. No focal enhancement or masslike lesion to suggest local recurrence. No primary mass lesion elsewhere throughout the neck. Postsurgical changes are noted in the left neck from prior neck dissection. No cervical lymphadenopathy bilaterally. No pulmonary nodules in the visualized portions of the lungs. No focal osseous lesions to suggest osseous metastases. The visualized portions of the brain are grossly normal. CT temporal bone: No abnormal enhancement. LEFT TEMPORAL BONE: Prior left canal wall [...] The vestibular aqueduct is normal in caliber. RIGHT TEMPORAL BONE: Prior right canal wall [...] The vestibular aqueduct is normal in caliber. 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 Adjuvant radiotherapy?completed 10/31/21.?? TECHNIQUE: CT neck and temporal bone were performed after the intravenousadministration of 110 mL of Omnipaque 350 contrast. COMPARISON: None FINDINGS: CT neck: Patient is status post bilateral canal wall down mastoidectomies.Addition, there has been prior placement of a flap over a revision leftmastoidectomy for known squamous cell carcinoma. No focal enhancement or masslike lesionto suggest local recurrence. No primary mass lesion elsewhere throughout the neck. Postsurgical changes are noted in the left neck from prior neckdissection. No cervical lymphadenopathy bilaterally. No pulmonary nodules in the visualized portions of the lungs. No focalosseous lesions to suggest osseous metastases. The visualized portions of thebrain are grossly normal. CT temporal bone: No abnormal enhancement. LEFT TEMPORAL BONE: Prior left canal wall down mastoidectomy changes with overlying flap reconstruction covering the surgical defect. There is thinning and focal dehiscence of the tegmen tympani. The course of the facial nerve isnormal noting that the lateral wall of the majority of the facial nerve canalis thinned or surgically absent. The vestibular apparatus is normal as isthe cochlea. There is no dehiscence of the superior semicircular canal. Themodiolus is present. There is no evidence of otospongiosis about the labyrinthine structures. The vestibular aqueduct is normal in caliber. RIGHT TEMPORAL BONE: Prior right canal wall down mastoidectomy changes. Mild thickening ofthe tympanic membrane. The ossicular chain is absent. Minimal opacity in themiddle ear cavity. 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 The courseof the facial nerve is normal. The sinus tympani, facial nerve recess, andround window niche are all clear. The vestibular apparatus is normal as is the cochlea. There is no dehiscence of the superior semicircular canal. Themodiolus is present. There is no evidence of otospongiosis about the labyrinthine structures. The vestibular aqueduct is normal in caliber. IMPRESSION CT neck and temporal bone: 1. No evidence of local tumor recurrence in the left temporal bone. 2. No cervical lymphadenopathy. 3. No evidence of regional distant metastatic disease. 4. Bilateral temporal bone postsurgical changes as discussed. Thank you for letting us participate in the care of this patient. If youare a health care provider and have any questions regarding this report,please contact the number below. For patients who have questions please contactthe health childbirth and infant care teacher that requested your imaging first. Electronically signed by: Ingris Cohn MD, [facility]([phone]), at 01/30/2022 3:40 PM Tyrese Fitzgerald MD IMG CT ORDERABLES * CT Neck Soft Tissue w Contrast (Generic) (01/30/2022 2:33 PM EDT) Anatomical Region Laterality Modality Neck, Head Computed Tomogra phy 01/30/2022 2:49 PM EDT Impressions 01/30/2022 3:[address] neck and temporal bone: 1. ??No evidence of local tumor recurrence in the left temporal bone. 2. ??No cervical lymphadenopathy. 3. ??No evidence of regional distant metastatic disease. 4. ??Bilateral temporal bone postsurgical changes as discussed. Thank you for letting us participate in the care of this patient. ??If you are a health care provider and have any questions regarding this report, please contact the number below. ??For patients who have questions please contact the health childbirth and infant care teacher that requested your imaging first. ? 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 Adjuvant radiotherapy?completed 10/31/21.?? TECHNIQUE: CT neck and temporal bone were performed after the intravenous administration of 110 mL of Omnipaque 350 contrast. COMPARISON: None FINDINGS: CT neck: Patient is status post bilateral canal wall down mastoidectomies. Addition, there has been prior placement of a flap over a revision left mastoidectomy for known squamous cell carcinoma. No focal enhancement or masslike lesion to suggest local recurrence. No primary mass lesion elsewhere throughout the neck. Postsurgical changes are noted in the left neck from prior neck dissection. No cervical lymphadenopathy bilaterally. No pulmonary nodules in the visualized portions of the lungs. No focal osseous lesions to suggest osseous metastases. The visualized portions of the brain are grossly normal. CT temporal bone: No abnormal enhancement. LEFT TEMPORAL BONE: Prior left canal wall [...] The vestibular aqueduct is normal in caliber. RIGHT TEMPORAL BONE: Prior right canal wall [...] The vestibular aqueduct is normal in caliber. 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 Adjuvant radiotherapy?completed 10/31/21.?? TECHNIQUE: CT neck and temporal bone were performed after the intravenousadministration of 110 mL of Omnipaque 350 contrast. COMPARISON: None FINDINGS: CT neck: Patient is status post bilateral canal wall down mastoidectomies.Addition, there has been prior placement of a flap over a revision leftmastoidectomy for known squamous cell carcinoma. No focal enhancement or masslike lesionto suggest local recurrence. No primary mass lesion elsewhere throughout the neck. Postsurgical changes are noted in the left neck from prior neckdissection. No cervical lymphadenopathy bilaterally. No pulmonary nodules in the visualized portions of the lungs. No focalosseous lesions to suggest osseous metastases. The visualized portions of thebrain are grossly normal. CT temporal bone: No abnormal enhancement. LEFT TEMPORAL BONE: Prior left canal wall down mastoidectomy changes with overlying flap reconstruction covering the surgical defect. There is thinning and focal dehiscence of the tegmen tympani. The course of the facial nerve isnormal noting that the lateral wall of the majority of the facial nerve canalis thinned or surgically absent. The vestibular apparatus is normal as isthe cochlea. There is no dehiscence of the superior semicircular canal. Themodiolus is present. There is no evidence of otospongiosis about the labyrinthine structures. The vestibular aqueduct is normal in caliber. RIGHT TEMPORAL BONE: Prior right canal wall down mastoidectomy changes. Mild thickening ofthe tympanic membrane. The ossicular chain is absent. Minimal opacity in themiddle ear cavity. 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 The courseof the facial nerve is normal. The sinus tympani, facial nerve recess, andround window niche are all clear. The vestibular apparatus is normal as is the cochlea. There is no dehiscence of the superior semicircular canal. Themodiolus is present. There is no evidence of otospongiosis about the labyrinthine structures. The vestibular aqueduct is normal in caliber. IMPRESSION CT neck and temporal bone: 1. No evidence of local tumor recurrence in the left temporal bone. 2. No cervical lymphadenopathy. 3. No evidence of regional distant metastatic disease. 4. Bilateral temporal bone postsurgical changes as discussed. Thank you for letting us participate in the care of this patient. If youare a health care provider and have any questions regarding this report,please contact the number below. For patients who have questions please contactthe health childbirth and infant care teacher that requested your imaging first. 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
--- OUTSIDE RECORDS SUMMARY | 2024-02-10 15:15 | XMS_ITS | Encounter Summary ---
Author Organization [facility] [place] [address] Care Team Providers Care Blanchard Grinder Operator Name Role Phone Ilya Medina MD Primary Care Provider [phone] Encounter Details Date Type Department Care Team (Latest Contact Info) Description 08/09/2022 10:35 AM EDT Laboratory Appointment Lab [address] [place] [phone] Malignant neoplasm of bones of skull and [...] place to sleep or slept in a chcf (including now)? No 07/19/2021 Sex and Gender Information Value Date Recorded Sex Assigned at Male 03/25/2021 10:08 AM EST Gender Identity Male 03/25/2021 10:08 AM EST Sexual Orientation Straight 03/25/2021 10 :08 AM EST documented as of this encounter Plan of Treatment Upcoming Encounters Date Type Department Care Team (Late st Contact Info) Description 04/29/2024 11:00 AM EST Office Visit Radiation Oncology at [address] [phone] Tyrese Fitzgerald MD [facility] [place] [address] documented as of this encounter Procedures Procedure Name Priority Date/Time Associated Diagnosis Comments CREATININE Routine 08/09/2022 10:41 AM EDT 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 73 m?? 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
--- OUTSIDE RECORDS SUMMARY | 2024-02-10 15:15 | XMS_ITS | Encounter Summary ---
Author Organization [facility] Address [facility] [place] [address] Care Team Providers Care Security Control Center Operator Name Role Phone Ilya Medina MD Primary Care Provider [phone] Encounter Details Date Type Department Care Team (Late st Contact Info) Description 11/15/2021 9:30 AM EDT Office Visit Radiation Oncology at [address] [address] Tyrees Fitzgerald MD [facility] [place] [address] Malignant neoplasm of bones of skull and [...] Sign Reading Time Taken Comments Blood Pressure 134/95 11/15/2021 9:56 AM EDT Pulse 83 11/15/2021 9:56 AM EDT Temperature 36.4 ??C (97.5 ??F) 11/15/2021 9:56 AM ED T Respiratory Rate 20 11/15/2021 9:56 AM EDT Oxygen Saturation 98% 11/15/2021 9:56 AM EDT Inhaled Oxygen Concentration - - Weight 109 kg (240 lb 6.4 oz) 11/15/2021 9:56 AM EDT Height - - Body Mass Index 34.49 10/25/2021 9:24 AM EDT documented in this encounter Progress Notes * Tyrese Fitzgerald MD - 11/15/2021 9:30 AM EDT FOLLOW UP VISIT NOTE Suman Warner is a 66 y.o. 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 Adjuvant radiotherapy. Current treatment dose: 60 Gy in 30 fractions. Concomitant Therapy: N Intercurrent History: COVID since completing treatment, noted congestion, dysgeusia, diarrhea. Now improving, tested negative on Saturday. Changes in medical condition Pain: no issues Secretions/Dryness: mild xerostomia, moderate dysgeusia, improving since COVID resolution. Using BSSW rinses. Swallowing Function: no issues Nutrition / G tube: no G tube, all by mouth Skin: no issues GI: -N/V: no nausea -Bowels: no issues Dizziness: he notes dizziness when lying flat on his back. It is occurring less often, and is less intense. The sensation resolves quickly, ~ 5 seconds. Nutrition Assessment: Weight : 113.9 kg initial Change: 114.2 => 109 Objective: Vitals: 11/15/21 0956 BP: (!) 134/95 Patient Position: Sitting Pulse: 83 Resp: 20 Temp: 36.4 ??C (97.5 ??F) SpO2: 98% Weight: 109 kg (240 lb 6.4 oz) SKIN: mild skin erythema HEENT: no mucositis Assessment: Mild toxicity. Weight loss and other sx associated with COVID. Overall doing well. CTCAE TOXICITY GRADES (see below for mims): Site Grade Skin 1 Xerostomia 0 Pharyngeal Mucositis 0 Dysphagia 0 Hoarseness 0 TREATMENT RESPONSE: No change Plan: ?? Pain control: none needed at this time ?? Skin: Ptplex cream prn ?? Mucositis: ?? Pain control: see above ?? Oral hygiene consisting of baking soda/salt rinse prn ?? Alimentation: human resources compensation analyst following ?? Weight decreased, all by mouth at this time ?? GI: ?? NV: No issues ?? Bowels: No issues ?? 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
--- OUTSIDE RECORDS SUMMARY | 2024-02-10 15:15 | XMS_ITS | Encounter Summary ---
[facility] [place] [address] Care Team Providers Care Green Building Engineer Name Role Phone Ilya Medina MD Primary Care Provider [phone] Reason for Visit * Reason Comments Follow-up Encounter Details Date Type Department Care Team (Late st Contact Info) Description 12/28/2021 8:45 AM EDT Office Visit Dermatology at [place] [address] [place] [address] Enoc Vázquez MD [address] [facility] [place] [address] Eczema, unspecified type Social History Tobacco Use Types Packs/Day Years [...] as of this encounter Progress Notes * Enoc Vázquez MD - 12/28/2021 8:45 AM EDT Problem: 1. Right second dorsal finger over PIP joint peeling scaling 2. History of SCCA left temporal bone status post extensive surgery/neck dissection with loss of left ear hearing Suman follows up after last being seen in 2016. He is now 66. He has been having issues with peeling scaling nonhealing dermatitis localized over the right dorsal second PIP joint. He states that this is been a problem for at least 2 months. He was diagnosed with SCC of the right temporal bone status post an extensive excision in both June and August of this year. This was followed by radiation therapy 6 weeks worth August through October of this year. The rash then developed towards the end ofthe radiation therapy course. He did not respond to [id number] emollient creams and Neosporin. He washes with the pump soap. He notices peeling potatoes seems to make this worse and irritate the skin. 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 He does use hand editor newspaper on a regular basis whenever he goes in and out of a store. Hewashes hands carefully. Patient denies any atopic history. No history of eczema allergies hayfever. Physical examination reveals a pleasant 66-year-old gentleman with erythema scaling and fissuring in a very localized area over the right second dorsal PIP. He has no rash or dermatitis elsewhere.. There is no involvement of the palmar hand left or right whatsoever. Assessment and plan: Localized eczematous dermatitis right dorsal second finger over PIP joint 1. Discussed sensitive skin care precautions. Try to minimize handwashing minimize use of editor newspaper, wearing gloves when going into stores and then removing them in lieu of having to use editor newspaper asmuch. 2. Use frequency bar soap such as Ivory or Dove. 3. During the day emollient skin well with CeraVe cream original formula 4. Begin betamethasone dipropionate ointment apply twice daily to affected finger until clear then discontinue. Dispense 15 g 1 refill 5. No other areas of involvement noted. Return to clinic here as needed if not see improvement CC: Ilya Medina MD documented in this encounter Plan of Treatment Upcoming Encounters Date Type Department Care Team (Late st Contact Info) Description 04/29/2024 11:00 AM EST Office Visit Radiation Oncology at [address] [phone] Tyrese Fitzgerald MD [facility] [place] [address] documented as of this encounter Visit Diagnoses Diagnosis Eczema, unspecified type documented in this encounter Care Teams Green Building Engineer Relationship 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
--- OUTSIDE RECORDS SUMMARY | 2024-02-10 15:15 | XMS_ITS | Encounter Summary ---
Author Organization [facility] Address [facility] [place] [address] Care Team Providers Care Belt Worker Name Role Phone Ilya Medina MD Primary Care Provider [phone] Encounter Details Date Type Department Care Team (Late st Contact Info) Description 09/27/2021 12:00 PM EDT Office Visit Radiation Oncology at [address] [address] Tyrese Fitzgerald MD [facility] [place] [address] Malignant neoplasm of bones of skull and [...] place to sleep or slept in a intermediate (including now)? No 07/19/2021 Sex and Gender Information Value Date Recorded Sex Assigned at Male 03/25/2021 10:08 AM EST Gender Identity Male 03/25/2021 10:08 AM EST Sexual Orientation Straight 03/25/2021 10 :08 AM EST documented as of this encounter Last Filed Vital Signs Vital Sign Reading Time Taken Comments Blood Pressure 141/89 09/27/2021 11:22 AM EDT Pulse 58 09/27/2021 11:22 AM EDT Temperature 36.7 ??C (98.1 ??F) 09/27/2021 1 1:22 AM EDT Respiratory Rate 18 09/27/2021 11:2 2 AM EDT Oxygen Saturation 100% 09/27/2021 11: 22 AM EDT Inhaled Oxygen Concentration - - Weight 113.7 kg (250 lb 9.6 oz) 022 11:22 AM EDT with shoes Height - - Body Mass Index 35.96 08/24/2021 12:50 PM EDT documented in this encounter Progress Notes * Tyrese Fitzgerald MD - 09/27/2021 12:00 PM EDT ON TREATMENT VISIT NOTE Suman Warner is a 66 y.o. 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 Adjuvant radiotherapy. Current treatment dose: 14 Gy in 7 fractions. Anticipated total dose: 60 Gy in 30 fractions. Concomitant Therapy: N Evaluation of Port Verification Films: PORT films have been reviewed, please see ARIA for details. Changes in medical condition Pain: no issues Secretions/Dryness: no issues Swallowing Function: no issues Nutrition / G tube: no G tube, all by mouth Skin: no issues GI: -N/V: not present -Bowels: no issues Other: Nutrition Assessment: Weight : 113.9 kg initial Change: 113.9 => 113.7 Objective: Vitals: 09/27/21 1122 BP: 141/89 Pulse: 58 Resp: 18 Temp: 36.7 ??C (98.1 ??F) SpO2: 100% Weight: 113.7 kg (250 lb 9.6 oz) SKIN: no skin erythema HEENT: no mucositis Assessment: No toxicity CTCAE TOXICITY GRADES (see below for mims): Site Grade Skin 0 Xerostomia 0 Pharyngeal Mucositis 0 Dysphagia 0 Hoarseness 0 TREATMENT RESPONSE: No change Plan: ?? Continue RT per prescription ?? Pain control: none needed at this time ?? Skin: Jeans cream prn ?? Mucositis: ?? Pain control: see above ?? Oral hygiene consisting of baking soda/salt rinse prn ?? Alimentation: licensed clinical psychologist following ?? Weight stable, all by mouth at this time ?? GI: ?? NV: No issues ?? 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
--- OUTSIDE RECORDS SUMMARY | 2024-02-10 15:15 | XMS_ITS | Encounter Summary ---
Author Organization [facility] Address [facility] [place] [address] Care Team Providers Care Grocery Buyer Name Role Phone Ilya Medina MD Primary Care Provider [phone] Encounter Details Date Type Department Care Team (Late st Contact Info) Description 10/31/2021 Notes [place] [address] [facility] [place] [address] Social History Tobacco Use Types Packs/Day Years [...] place to sleep or slept in a fdc (including now)? No 07/19/2021 Sex and Gender Information Value Date Recorded Sex Assigned at Male 03/25/2021 10:08 AM EST Gender Identity Male 03/25/2021 10:08 AM EST Sexual Orientation Straight 03/25/2021 10 :08 AM EST documented as of this encounter Progress Notes * Tyrese Fitzgerald MD - 10/31/2021 11:59 PM EDT Images from the original note were not included. Radiation Oncology Treatment Summary PATIENT NAME: Suman Warner DATE OF : 1955 DIAGNOSIS / TREATMENT OVERVIEW Suman Warner is a 66 y.o. 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 Adjuvant radiotherapy. TREATMENT DETAILS Treatment Intent Curative Site Treated Post-operative bed Technique VMAT Adaptive Plan Required No Concurrent Chemo No Clinical Trial No TECHNICAL DETAILS Total Dose: 60 Gy @ 2 Gy/fxn PLAN IMAGES CLINICAL COURSE Suman Warner had the following toxicities at the end of treatment (CTCAE v4.03): Site Grade Skin 1 Xerostomia 0 Pharyngeal Mucositis 0 Dysphagia 0 Hoarseness 0 Feeding Tube: N FOLLOW UP Per NCC protocol documented in this encounter Plan of Treatment Upcoming Encounters Date Type Department Care Team (Late st Contact Info) Description 04/29/2024 11:00 AM EST Office Visit Radiation Oncology at [address] [phone] [facility] [address] [place] [address] documented as of this encounter Visit Diagnoses Not on filedocumented in this encounter Care Teams Grocery Buyer Relationship 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
--- OUTSIDE RECORDS SUMMARY | 2024-02-10 15:15 | XMS_ITS | Encounter Summary ---
Author Organization Count Includes [facility] Address [facility] [place] [address] Care Team Providers Care Note Specialist Name Role Phone Ilya Medina MD Primary Care Provider [phone] Encounter Details Date Type Department Care Team (Late st Contact Info) Description 10/11/2021 9:30 AM EDT Office Visit Radiation Oncology at [address] [phone] Tyrese Fitzgerald MD [facility] [place] [address] Malignant neoplasm of bones of skull and [...] Sign Reading Time Taken Comments Blood Pressure 133/84 10/11/2021 9:00 AM EDT Pulse 67 10/11/2021 9:00 AM EDT Temperature 36.2 ??C (97.2 ??F) 10/11/2021 9:00 AM ED T Respiratory Rate 18 10/11/2021 9:00 AM EDT Oxygen Saturation 99% 10/11/2021 9:00 AM EDT Inhaled Oxygen Concentration - - Weight 113 kg (249 lb 3.2 oz) 10/11/2021 9:00 AM EDT Height - - Body Mass Index 35.76 08/24/2021 12:50 PM EDT documented in this encounter Progress Notes * Tyrese Fitzgerald MD - 10/11/2021 9:30 AM EDT ON TREATMENT VISIT NOTE Suman Warner is a 66 y.o. 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 Adjuvant radiotherapy. Current treatment dose: 32 Gy in 16 fractions. Anticipated total dose: 60 Gy in 30 fractions. Concomitant Therapy: N Evaluation of Port Verification Films: PORT films have been reviewed, please see ARIA for details. Changes in medical condition Pain: no issues Secretions/Dryness: mild xerostomia, moderate dysgeusia. Swallowing Function: no issues Nutrition / G tube: no G tube, all by mouth Skin: no issues GI: -N/V: no nausea, Zofran prn -Bowels: no issues Other: one episode of dizziness, now resolved. Nutrition Assessment: Weight : 113.9 kg initial Change: 114.3 => 113 Objective: Vitals: 10/11/21 0900 BP: 133/84 Pulse: 67 Resp: 18 Temp: 36.2 ??C (97.2 ??F) SpO2: 99% Weight: 113 kg (249 lb 3.2 oz) SKIN: mild skin erythema HEENT: no [...] of baking soda/salt rinse prn ?? 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
--- OUTSIDE RECORDS SUMMARY | 2024-02-10 15:15 | XMS_ITS | Encounter Summary ---
Author Organization [facility] Address [facility] [place] [address] Care Team Providers Care Golf Ball Marker Name Role Phone Ilya Medina MD Primary Care Provider [phone] Encounter Details Date Type Department Care Team (Late st Contact Info) Description 01/31/2022 1:30 PM EDT Office Visit Radiation Oncology at [address] [phone] Tyrese Fitzgerald MD [facility] [place] [address] Malignant neoplasm of bones of skull and [...] place to sleep or slept in a assisted (including now)? No 07/19/2021 Sex and Gender Information Value Date Recorded Sex Assigned at Male 03/25/2021 10:08 AM EST Gender Identity Male 03/25/2021 10:08 AM EST Sexual Orientation Straight 03/25/2021 10 :08 AM EST documented as of this encounter Last Filed Vital Signs Vital Sign Reading Time Taken Comments Blood Pressure 127/68 01/31/2022 1:45 PM EDT Pulse 59 01/31/2022 1:45 PM EDT Temperature 36 ??C (96.8 ??F) 01/31/2022 1:4 5 PM EDT Respiratory Rate 18 01/31/2022 1:45 PM EDT Oxygen Saturation 98% 01/31/2022 1:4 5 PM EDT Inhaled Oxygen Concentration - - Weight 111.8 kg (246 lb 6.4 oz) 022 1:45 PM EDT with shoes Height - - Body Mass Index 35.35 10/25/2021 9:24 AM EDT documented in this encounter Progress Notes * Tyrese Fitzgerald MD - 01/31/2022 1:30 PM EDT Images from the original note were not included. [facility] Medicine Radiation Oncology Radiation Oncology Follow Up Visit Patient Identity: Patient name: Suman Warner Date of : 1955 Chief complaint: Squamous cell carcinoma of the left temporal bone Referring: Ilya Medina MD [address] [place] [address] History: Oncologic History: Overview: pT3N0 (Modified [place] Staging System for Temporal Bone) squamous cell [...] staged at a pT3 based on Modified [place] Staging System for Temporal Bone SCCa. We [...] as discussed. Time from RT completion: ~ 3 months Interval History: no issues Currently, he [...] 24 hrs: Temp Pulse Resp BP SpO2 01/31/22 1345 36 ??C (96.8 ??F) 59 18 127/68 98 % Physical Exam Constitutional: Appearance: He is [...] to participate in the care of Suman Alondra Warner. TYRESE FITZGERALD MD New Orders: No orders of the defined types were placed in this encounter. ??? National [employer] [place] (NCI) Comprehensive Cancer Center ??? [place] [employer] Commission on Cancer (ACS [place]) Accredited Cancer Program ??? 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
--- OUTSIDE RECORDS SUMMARY | 2024-02-10 15:15 | XMS_ITS | Encounter Summary ---
Author Organization [facility] Address [facility] [place] [address] Care Team Providers Care Cash Teller Name Role Phone Ilya Medina MD Primary Care Provider [phone] Encounter Details Date Type Department Care Team (Latest Contact Info) Description 01/16/2023 Travel Social History Tobacco Use Types Packs/Day [...] AM EST Office Visit Radiation Oncology at [address] [phone] Tyrese Fitzgerald MD [facility] [place] [address] documented as of this encounter Visit Diagnoses Not on filedocumented in this encounter Care Teams Cash Teller Relationship 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
--- OUTSIDE RECORDS SUMMARY | 2024-02-10 15:15 | XMS_ITS | Encounter Summary ---
Author Organization [facility] Address [facility] [place] [address] Care Team Providers Care Rice Drier Operator Name Role Phone Ilya Medina MD Primary Care Provider [phone] Encounter Details Date Type Department Care Team (Late st Contact Info) Description 02/05/2022 12:00 PM EDT Office [place] [address] Jose D Tejada MD [facility] [place] [address] Cancer of temporal bone Social History Tobacco [...] place to sleep or slept in a fci (including now)? No 07/19/2021 Sex and Gender Information Value Date Recorded Sex Assigned at Male 03/25/2021 10:08 AM EST Gender Identity Male 03/25/2021 10:08 AM EST Sexual Orientation Straight 03/25/2021 10 :08 AM EST documented as of this encounter Progress Notes * Jose D Tejada MD - 02/05/2022 12:00 PM EDT [facility] FOLLOW UP NOTE Suman Warner is a 66 y.o. 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 Hernández & Dr. Tejada (06/28/2021) 1. Left Subtotal Temporal Bone Resection in setting of Prior Canal Wall Down Mastoidectomy 2. Left Neck Dissection Level IB, IIA, & III 3. Left Superficial Inferior Lobe Parotidectomy 4. Left Submental Myocutaneous Flap (5 cm x 8 cm) Flap Debridement & Revision by Dr. Tejada (08/15/2021) 1. Debridement of Left Submental Flap 2. Left Temporalis Muscle Pedicled Flap (6 cm x 6 cm) Completed adjuvant radiation therapy 10/31/2021 New issues since last visit: Doing well, no pain. Facial function has returned. No further drainage or other healing issues. Seeing dentist regularly. PROBLEM LIST Patient Active Problem List Diagnosis Code ??? [...] except mandible C41.0 ??? S/P debridement Z98.890 PAST MEDICAL HISTORY Past Medical History: Diagnosis Date ??? GERD (gastroesophageal reflux disease) 02/06/2011 ??? Glaucoma ??? Hypercholesteremia ??? Nocturia SOCIAL HISTORY Social History Tobacco Use ??? Smoking status: Never Smoker ??? Smokeless tobacco: Never Used Substance Use Topics ??? Alcohol use: No MEDICATIONS Current Outpatient Medications on File Prior to Visit Medication Sig Dispense Refill ??? Miscellaneous Medical Supply Misc by [facility].(Non-Drug; Combo Route) route. Phytoplex Remedy Moisturizing Cream- [...] facility-administered medications on file prior to visit. ALLERGIES No Known Allergies ROS Pertinent positive findings discussed above. No other findings on review of constitutional visual, cardiovascular, respiratory, gastrointestinal, genitourinary, musculoskeletal, dermatologic, neurological, psychiatric, endocrine, hematologic or immunologic systems. PHYSICAL EXAMINATION Wt Readings from Last 3 Encounters: 02/05/22 112.5 kg (248 lb 1.6 oz) 01/31/22 111.8 kg (246 lb 6.4 oz) 12/27/21 110.8 kg (244 lb 3.2 oz) General: Well developed, no distress Head/face: Normocephalic, atraumatic, incisions well healed. Flap intact in EAC. Oral cavity: Normal exam of the lips, teeth/gums, floor of mouth, tongue. Normal oral mucosa. Normal palate. Oropharynx: Normal soft palate, tonsils, lateral pharyngeal wall, posterior pharynx. Neck: No adenopathy, no masses, normal thyroid, normal salivary gland exam. Trachea midline. Neuro: AxOx3; CN II-XII is grossly intact PROCEDURES None REVIEW OF IMAGES Narrative & Impression EXAMINATION: CT NECK SOFT TISSUE W CONTRAST (GENERIC), CT TEMPORAL BONE W CONTRAST ?? 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 ASSESSMENT/RECOMMENDATIONS DMITRIY clinically and radiographically Follow up per grid I appreciate the opportunity to be involved in Mr. Warner's care. 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
--- OUTSIDE RECORDS SUMMARY | 2024-02-10 15:15 | XMS_ITS | Encounter Summary ---
Author Organization [facility] [place] [address] Care Team Providers Care Health Center Assistant Name Role Phone Ilya Medina MD Primary Care Provider Encounter Details Date Type Department Care Team (Latest Contact Info) Description 10/02/2021 Unscheduled Encounter Radiation Oncology at [address] [phone] Negin Damon RN Nausea without vomiting Social History Tobacco Use [...] Sign Reading Time Taken Comments Blood Pressure 145/93 10/02/2021 11:25 AM EDT Pulse 64 10/02/2021 11:25 AM EDT Temperature 36.8 ??C (98.3 ??F) 10/02/2021 1 1:25 AM EDT Respiratory Rate 18 10/02/2021 11:2 5 AM EDT Oxygen Saturation 99% 10/02/2021 11: 25 AM EDT Inhaled Oxygen Concentration - - Weight 114 kg (251 lb 6.4 oz) 11:25 AM EDT with shoes Height - - Body Mass Index 36.07 08/24/2021 12:50 PM EDT documented in this encounter Progress Notes * Negin Damon, RN - 10/02/2021 11:25 AM EDT Radiation Oncology Nursing on Treatment Note Patient has received 2000 cGy to the head and neck for treatment of squamous cell cancer left temporal bone. Side effects that patient is experiencing: Nausea Assessment: Nausea started Saturday and has been continuous. It has not affected his appetite nor is helped by eating. Denies vomiting or diarrhea/constipation. Denies fever, changes in vision, balance,strength,headaches, other pain or new issues. Has not done anything to try to help nausea other than eating. Reports able to stay well hydrated especially with the hot weekend weather. Has not been around anyone with COVID that he is aware of but plans to do a home COVID test. Anticipatory guidance/ interventions: Dr. Fitzgerald updated via Trillian and recommended ondansetron be added. Other: Patient instructed regarding new prescription for ondansetron which is being sent to [facility] in [place] per patient request. Instructed patient to let us know if this is not helpful or if he develops additional symptoms. Plan: Weekly otv with Dr. Fitzgerald on Saturday. Daily nursing otv prn. documented in this encounter Plan of Treatment Upcoming Encounters Date Type Department Care Team (Late st Contact Info) Description 04/29/2024 11:00 AM EST Office Visit Radiation Oncology at [address] [phone] Tyrese Fitzgerald MD [facility] [place] [address] documented as of this encounter Visit Diagnoses Diagnosis Nausea without vomiting documented in this encounter Care Teams Health Center Assistant Relationship 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
--- OUTSIDE RECORDS SUMMARY | 2024-02-10 15:15 | XMS_ITS | Encounter Summary ---
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 [place] [address] Referral ID Status Reason Start Date Expiration Date V isits Requested Visits Authorized [id number] Closed Specialty Service Requested 01/02/2022 07/05/2023 1 1 Encounter Details Date Type Department Care Team (Latest Contact Info) Description 01/30/2022 1:37 PM EDT - 01/30/2022 11:59 PM EDT Hospital [place] [address] Tyrese Fitzgerald MD [facility] [place] [address] Malignant neoplasm of bones of [...] Sig Dispensed Refills Start Date End Date cyanocobalamin, Vitamin B-12, (Vitamin B-12) 1,000 mcg [...] 2 times daily. 30 tablet 12 02/06/2011 Paxlovid, EUA, 300 mg (150 mg x 2)-100 mg Tablets, Dose Pack (EUA) TAKE THREE TABLETS BY MOUTH TWO TIMES A DAY FOR 5 DAYS. STOP ATORVASTATIN FOR 10 DAYS WHILE TAKING THIS MED 11/08/2021 01/31/2022 betamethasone dipropionate (Diprolene) 0.05 % Ointment Apply twice daily to affected finger until clear then discontinue 15 g 1 12/28/2021 01/31/2022 Miscellaneous Medical Supply Misc by [facility].(Non-Drug; Combo Route) route. Phytoplex Remedy Moisturizing Cream- Apply to area of radiation twice a day but no less than 2 hours before a treatment. 01/16/2023 ondansetron (Zofran) 8 mg Tablet Take 1 tablet by mouth every 8 hours as needed for Nausea. 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 ? 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 Tyrese Fitzgerald MD IMG CT ORDERABLES * [...] who have questions please contact the health healthcare corporate account director that requested your imaging first. ? 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 Adjuvant radiotherapy?completed 10/31/21.?? TECHNIQUE: CT [...] patients who have questions please contactthe health healthcare corporate account director that requested your imaging first. Tyrese Fitzgerald [...] Intravenous, ONCE PRN, 1 dose, Starting on Sat01/30/22 at 1411, Until Sat01/30/22 at 1414, Per Protocol, Warning Vesicant/Irritant Medication , Radiology Contrast, Routine Given 01/30/2022 2:14 PM EDT 110 mLs documented in this encounter Care Teams Analysis Lead Relationship 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
--- OUTSIDE RECORDS SUMMARY | 2024-02-10 15:15 | XMS_ITS | Encounter Summary ---
Author Organization [facility] Address [facility] [place] [address] Care Team Providers Care Traffic Operator Name Role Phone Ilya Medina MD Primary Care Provider [phone] Encounter Details Date Type Department Care Team (Latest Contact Info) Description 06/06/2022 Travel Social History Tobacco Use Types Packs/Day [...] AM EST Office Visit Radiation Oncology at [address] [phone] Tyrese Fitzgerald MD [facility] DR [place] [address] documented as of this encounter Visit Diagnoses Not on filedocumented in this encounter Care Teams Traffic Operator Relationship 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
--- OUTSIDE RECORDS SUMMARY | 2024-02-10 15:15 | XMS_ITS | Encounter Summary ---
Author Organization [facility] Address [facility] [place] [address] Care Team Providers Care Interlocker Maintainer Name Role Phone Ilya Medina MD Primary Care Provider [phone] Encounter Details Date Type Department Care Team (Late st Contact Info) Description 12/19/2021 Orders Only [place] [address] Tyrese Fitzgerald MD [facility] [place] [address] Malignant neoplasm of bones of skull and [...] AM EST Office Visit Radiation Oncology at [address] [phone] Tyrese Fitzgerald MD [facility] [place] [address] documented as of this encounter Visit Diagnoses Diagnosis 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
--- OUTSIDE RECORDS SUMMARY | 2024-02-10 15:15 | XMS_ITS | Encounter Summary ---
Author Organization [facility] Address [facility] [place] [address] Care Team Providers Care Program Consultant Name Role Phone Ilya Medina MD Primary Care Provider Encounter Details Date Type Department Care Team (Late st Contact Info) Description 10/18/2021 9:30 AM EDT Office Visit Radiation Oncology at [address] [phone] Tyrese Fitzgerald MD [facility] [place] [address] Malignant neoplasm of bones of skull and [...] place to sleep or slept in a snf (including now)? No 07/19/2021 Sex and Gender Information Value Date Recorded Sex Assigned at Male 03/25/2021 10:08 AM EST Gender Identity Male 03/25/2021 10:08 AM EST Sexual Orientation Straight 03/25/2021 10 :08 AM EST documented as of this encounter Last Filed Vital Signs Vital Sign Reading Time Taken Comments Blood Pressure 129/78 10/18/2021 9:14 AM EDT Pulse 64 10/18/2021 9:14 AM EDT Temperature 36.4 ??C (97.5 ??F) 10/18/2021 9:14 AM ED T Respiratory Rate 16 10/18/2021 9:14 AM EDT Oxygen Saturation 99% 10/18/2021 9:14 AM EDT Inhaled Oxygen Concentration - - Weight 114.2 kg (251 lb 12.8 oz) 10/18/2021 9:14 AM EDT Height 177.8 cm (5' 10) 10/18/2021 9:14 AM EDT Body Mass Index 36.13 10/18/2021 9:14 AM EDT documented in this encounter Progress Notes * Tyrese Fitzgerald MD - 10/18/2021 9:30 AM EDT ON TREATMENT VISIT NOTE Suman Warner is a 66 y.o. 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 Adjuvant radiotherapy. Current treatment dose: 42 Gy in 21 fractions. Anticipated total dose: 60 Gy in 30 fractions. Concomitant Therapy: N Evaluation of Port Verification Films: PORT films have been reviewed, please see ARIA for details. Changes in medical condition Pain: no issues Secretions/Dryness: mild xerostomia, moderate dysgeusia. Using BSSW rinses. Swallowing Function: no issues [...] : 113.9 kg initial Change: 113 => 114.2 Objective: Vitals: 10/18/21 0914 BP: 129/78 Patient Position: Sitting Pulse: 64 Resp: 16 Temp: 36.4 ??C (97.5 ??F) TempSrc: Temporal SpO2: 99% Weight: 114.2 kg (251 lb 12.8 oz) Height: 177.8 cm (5' 10) SKIN: mild skin erythema HEENT: no mucositis [...] of baking soda/salt rinse prn ?? Alimentation: trench pipe layer helper following ?? 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
--- OUTSIDE RECORDS SUMMARY | 2024-02-10 15:15 | XMS_ITS | Encounter Summary ---
Author Organization [facility] Address [facility] [place] [address] Care Team Providers Care Electric Accounting Machine Operator Name Role Phone Ilya Medina MD Primary Care Provider [phone] Encounter Details Date Type Department Care Team (Latest Contact Info) Description 01/09/2023 Travel Social History Tobacco Use Types Packs/Day [...] AM EST Office Visit Radiation Oncology at [address] [phone] Tyrese Fitzgerald MD [facility] [place] [address] documented as of this encounter Visit Diagnoses Not on filedocumented in this encounter Care Teams Electric Accounting Machine Operator Relationship 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
--- OUTSIDE RECORDS SUMMARY | 2024-02-10 15:15 | XMS_ITS | Encounter Summary ---
Author Organization [facility] [place]lyssia [place] [address] Care Team Providers Care Director Of Valuation Name Role Phone Ilya Medina MD Primary Care Provider [phone] Encounter Details Date Type Department Care Team (Late st Contact Info) Description 10/05/2021 Notes Only Radiation Oncology at [address] [phone] Latasha Cali RN Social History Tobacco Use Types Packs/Day Years [...] Sign Reading Time Taken Comments Blood Pressure 158/99 10/05/2021 12:00 PM EDT Pulse 63 10/05/2021 12:00 PM EDT Temperature 36.5 ??C (97.7 ??F) 10/05/2021 11:55 AM E DT Respiratory Rate 16 10/05/2021 11:55 AM EDT Oxygen Saturation 100% 10/05/2021 12:00 PM EDT Inhaled Oxygen Concentration - - Weight - - Height - - Body Mass Index - - documented in this encounter Progress Notes * Latasha Cali RN - 10/05/2021 1:56 PM EDT Radiation Oncology Nurse Note [place], [place] Radiation Therapists asked nurse to see patient after treatment today for c/o dizziness. Patient is in wheelchair. He states he walked into clinic fine and while lying on treatment table began to feel dizzy. When he sat up after treatment, it got worse, so he got in the wheel chair. He denies head ache, n/v, weakness or numbness. His speech is clear and he is in no distress. He admits he had a couple spells like this before his surgery, but they didn't last this long. It is severe enough that he is worried he shouldn't drive. He states the only thing different he did today is have a cup of coffee. Vitals: 10/05/21 1155 10/05/21 1200 BP: 168/88 (!) 158/99 Patient Position: Sitting Standing Pulse: 58 63 Resp: 16 Temp: 36.5 ??C (97.7 ??F) SpO2: 100% 100% See flow sheet or click on expand all in this progress note for vital signs. He denied dizziness while he stood for orthostatic BP, but felt it when he sat. He then walked around in the room and moved head from sided to side , to try to see if it would come back. Gait is stable. 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 Patient agreed. He called , who picked him up to bring him to [facility]. Telephone call report given to Sharri at [facility] ER and Dr Fitzgerald's recent clinic note was faxed to them. Dr Fitzgerald informed via this note documented in this encounter Plan of Treatment Upcoming Encounters Date Type Department Care Team (Late st Contact Info) Description 04/29/2024 11:00 AM EST Office Visit Radiation Oncology at [address] [phone] [facility] [place] [address] documented as of this encounter Visit Diagnoses Not on filedocumented in this encounter Care Teams Director Of Valuation Relationship 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
--- OUTSIDE RECORDS SUMMARY | 2024-02-10 15:15 | XMS_ITS | Encounter Summary ---
Author Organization [facility] [place] [address] Care Team Providers Care Grab Operator Name Role Phone Ilya Medina MD Primary Care Provider Encounter Details Date Type Department Care Team (Late st Contact Info) Description 10/18/2021 Telephone Hematology [place] [address] Cuca Boo Social History Tobacco Use Types Packs/Day Years [...] place to sleep or slept in a half-way (including now)? No 07/19/2021 Sex and Gender Information Value Date Recorded Sex Assigned at Male 03/25/2021 10:08 AM EST Gender Identity Male 03/25/2021 10:08 AM EST Sexual Orientation Straight 03/25/2021 10 :08 AM EST documented as of this encounter Miscellaneous Notes * Telephone Encounter - Cuca Boo - 10/18/2021 1:52 PM EDT [facility] [employer] spoke to Suman today, [employer]NA[employer] awarded $652.28 for his mortgage payment. 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 But this will stop soon as schoolis out for the summer. I provided him the contact information for [employer], he can check with them in the late summer and early fall to see if they are eligible for fuel assistance. He was very thankful for the assistance. Cuca Boo documented in this encounter Plan of Treatment Upcoming Encounters Date Type Department Care Team (Late Contact Info) Description 04/29/2024 11:00 AM EST Office Visit Radiation Oncology at [address] [phone] Tyrese Fitzgerald MD [facility] [place] [address] documented as of this encounter Visit Diagnoses Not on filedocumented in this encounter Care Teams Grab Operator Relationship 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
--- OUTSIDE RECORDS SUMMARY | 2024-02-10 15:15 | XMS_ITS | Encounter Summary ---
Author Organization [facility] [place] [address] Care Team Providers Care Academic Services Professional Name Role Phone Ilya Medina MD Primary Care Provider [phone] Encounter Details Date Type Department Care Team (Late st Contact Info) Description 10/05/2021 Telephone [place] [address] Maria Elena Fernández Social History Tobacco Use Types Packs/Day Years [...] EST Office Visit Radiation Oncology at [address] [phone] Tyrese Fitzgerald MD [facility] [place] [address] documented as of this encounter Visit Diagnoses Not on filedocumented in this encounter Care Teams Academic Services Professional Relationship 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
--- OUTSIDE RECORDS SUMMARY | 2024-02-10 15:15 | XMS_ITS | Encounter Summary ---
Author Organization [facility] Alyssia [place] [address] Care Team Providers Care Water And Sewer Systems Supervisor Name Role Phone Ilya Medina MD Primary Care Provider [phone] Encounter Details Date Type Department Care Team (Late st Contact Info) Description 10/06/2021 Notes Only Radiation Oncology at [address] [phone] Olga Quintana RN Social History Tobacco Use Types Packs/Day [...] as of this encounter Progress Notes * Olga Huerta RN - 10/06/2021 12:49 PM EDT Patient called the office to report that the ED at [facility] found nothing after his visit yesterday. Wanted to know if he should still come in. Instructed patient to come in for tx and stated I would discuss with MD Fitzgerald. Uploaded ED notes and labs for MD review. MD states he still wants the patientto have tx. Patient arrived for TX. Discussed with him that we were not certain what the cause of hi s dizziness was, but that we wanted him to take the following precautions: No driving if feeling dizzy Stay well hydrated Control blood sugar, as it was high yesterday upon arrival to the ED Change positions slowly and deliberately. Patient agreed with this plan. documented in this encounter Plan of Treatment Upcoming Encounters Date Type Department Care Team (Late st Contact Info) Description 04/29/2024 11:00 AM EST Office Visit Radiation Oncology at [address] [phone] Tyrese Fitzgerald MD [facility] [place] [address] documented as of this encounter Visit Diagnoses Not on filedocumented in this encounter Care Teams Water And Sewer Systems Supervisor Relationship 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
--- OUTSIDE RECORDS SUMMARY | 2024-02-10 15:15 | XMS_ITS | Encounter Summary ---
Author Organization [facility] [place] [address] Care Team Providers Care Java Consultant Name Role Phone Ilya Medina MD Primary Care Provider [phone] Encounter Details Date Type Department Care Team (Late st Contact Info) Description 10/25/2021 9:00 AM EDT Office Visit Hematology/Oncology at [address] [phone] [facility] DR [place] [address] Malignant neoplasm of bones of skull and [...] - Inhaled Oxygen Concentration - - Weight 113.8 kg (250 lb 12.8 oz) 10/25/2021 9:24 AM EDT Height 177.8 cm (5' 10) 10/25/2021 9:24 AM EDT Body Mass Index 35.99 10/25/2021 9:24 AM EDT documented in this encounter Progress Notes * Roseanna Wyatt, RD - 10/25/2021 9:00 AM EDT Nutrition Note Spoke with patient after treatment today. He is in the start of his 6th week of RT for HN cancer. His last RT will be next week on 11/01. Patient continues with taste changes but has been eating well despite this. He says he can taste chicken noodle soup, vegetable soup, and grilled cheese somewhat.Spaghetti and meatballs did not taste very good recently. He does not have any pain with swallowing. Wt Readings from Last 3 Encounters: 10/24/21 113.2 kg (249 lb 9.6 oz) 10/18/21 114.2 kg (251 lb 12.8 oz) 10/11/21 113 kg (249 lb 3.2 oz) 10/04/21 114.3 kg (252 lb) 09/20/21?251#?Start Patient has maintained his weight at 249-252# for five weeks of treatment so far. Plan: Continue good PO intake with regular meals and snacks despite taste changes. Discussed FASS principles again and provided related handout. Will see patient on 11/01. 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
--- OUTSIDE RECORDS SUMMARY | 2024-02-10 15:15 | XMS_ITS | Encounter Summary ---
Author Organization [facility] [place] [address] Care Team Providers Care Sheet Metal Supervisor Name Role Phone Ilya Medina MD Primary Care Provider [phone] Encounter Details Date Type Department Care Team (Latest Contact Info) Description 10/13/2021 Unscheduled Encounter Hematology/Oncology at [address] [phone] [facility] [place] [address] Malignant neoplasm of bones of skull and [...] Progress Notes * Roseanna Wyatt RD - 10/13/2021 9:07 AM EDT Nutrition Note Visited with patient following treatment today. He started RT for HN cancer on 09/19/21. He reports he is doing well, though recently had a dizzy spell while on RT table. Most foods are tasting bland. Tomatoes, ice cream and chicken noodle soup taste fairly good. Encouraged him to continue with adequate PO intake to keep weight stable during treatment. Encouraged good oral hygiene to help with taste changes, as well as expanding on the foods that do taste good and trying different things to find other foods that may be more appealing. His weight has been stable. Wt Readings from Last 3 Encounters: 10/18/21 114.2 kg (251 lb 12.8 oz) 10/11/21 113 kg (249 lb 3.2 oz) 10/04/21 114.3 kg (252 lb) 09/20/21 251# Start Will f/u with patient next week. 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
--- OUTSIDE RECORDS SUMMARY | 2024-02-10 15:15 | XMS_ITS | Encounter Summary ---
Author Organization [facility] [place] [address] Care Team Providers Care Share Holder Name Role Phone Ilya Medina MD Primary Care Provider Encounter Details Date Type Department Care Team (Latest Contact Info) Description 01/30/2022 12:30 PM EDT - 01/30/2022 1:36 PM EDT Hospital Encounter [place] [phone] Malignant neoplasm of bones of skull and [...] medical appointments or from getting medications? No 030 01/2022 In the past 12 months, has [...] 12/28/2021 01/31/2022 Miscellaneous Medical Supply Misc [place] [facility]Non-Drug; Combo Route) route. 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 73 m?? [facility] Comment: This patient's estimated GFR [...] and symptoms in addition to eGFR. 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
--- OUTSIDE RECORDS SUMMARY | 2024-02-10 15:15 | XMS_ITS | Encounter Summary ---
Author Organization [facility] Address [facility] [place] [address] Care Team Providers Care Promotions Producer Name Role Phone Ilya Medina MD Primary Care Provider [phone] Reason for Visit * Reason Comments Follow-up Doing well Encounter Details Date Type Department Care Team (Late st Contact Info) Description 08/09/2022 3:30 PM EDT Office Visit [place] [address] Didier Baca PA [facility] [place] [address] Cancer of temporal bone Social History Tobacco [...] - Inhaled Oxygen Concentration - - Weight 113.9 kg (251 lb) 08/09/2022 3:50 PM EDT Height 177.8 cm (5' 10) 08/09/2022 3:50 PM EDT Body Mass Index 36.01 08/09/2022 3:50 PM EDT documented in this encounter Progress Notes * Didier Baca PA - 08/09/2022 3:30 PM EDT [facility] FO[place] UP NOTE Suman Warner is a 67 y.o. 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 Treatment Surgical Resection by Dr. Hernández & Dr. Hoang (06/28/2021) 1. Left Subtotal Temporal Bone Resection in setting of Prior Canal Wall Down Mastoidectomy 2. Left Neck Dissection Level IB, IIA, & III 3. Left Superficial Inferior Lobe Parotidectomy 4. Left Submental Myocutaneous Flap (5 cm x 8 cm) ?? Flap Debridement & Revision by Dr. Hoang (08/15/2021) 1. Debridement of Left Submental Flap 2. Left Temporalis Muscle Pedicled Flap (6 cm x 6 cm) ?? Completed adjuvant radiation therapy 10/31/2021 He also has a history of a right canal wall down tympanomastoidectomy in 1999; then revision right tympanomastoidectomy with OCR with Dr. Linda in 2009. ?? New issues since last visit: Doing well. No new difficulties. No pain. No swelling. Had a bump in his left neck, first noted [address] Fitzgerald felt likely some fatty tissue, unchanged today. No trismus. No changes in swallowing. No changes in breathing. No changes to health. Had CT temporal bones prior, today. Has a known tympanic perforation in the right ear. PROBLEM LIST Patient Active Problem List Diagnosis [...] History Tobacco Use ??? Smoking status: Never ??? Smokeless tobacco: Never Substance Use Topics ??? Alcohol use: No MEDICATIONS Current Outpatient Medications on File Prior to Visit Medication Sig Dispense Refill ??? Miscellaneous Medical Supply Misc [place] [facility] [place]Non-Drug; Combo Route) route. Phytoplex Remedy Moisturizing Cream- [...] mg by mouth daily.) 30 tablet 12 Current Facility-Administered Medications on File Prior to Visit Medication Dose Route Frequency Provider Last Rate Last Admin ??? [COMPLETED] iohexoL (Omnipaque) (350 mg/mL) solution 0-200 mL 0-200 mL Intravenous Once PRN Jose Walters, DO 110 mL at 08/09/22 1216 ALLERGIES No Known Allergies ROS 8 point Review of Systems was normal except for pertinent positives and negatives included in the History of Present Illness. PHYSICAL EXAMINATION Physical Examination: VITALS - There were no vitals taken for this visit. GENERAL - Well dressed and well nourished. - Breathing comfortably without stridor. - No acute distress. FACE - Full and symmetric facial movement. - No dysmorphic facial features. EYES - Periocular structures and conjunctiva healthy without lesions. - Pupils are equal, round, and reactive to light. - Extraocular movement is full and intact. - No evidence of nystagmus. EARS Left: - Auricle normal exam. - External auditory canal closed. Right: - Auricle normal exam. MOUTH - Lips and gingiva pink, moist, without lesions. - Gums/dentition healthy. - Tongue and floor of mouth without lesions or masses. - Hard palate without lesions. PHARYNX - Soft palate without lesions. - Uvula is midline. - Oropharynx symmetric. NECK - No, without significant lymphadenopathy. - Left neck and flap reconstruction appear healthy, with no evidence of recurrence. - Thyroid gland without masses or asymmetry. - Trachea midline without deviation. NEURO - Cranial nerves II-XII intact and symmetric. - Responds appropriately to questions. PSYCHE - Normal mood and affect. PROCEDURES REVIEW OF IMAGES/STUDIES CT temporal bones w contrast 08/09/22 FINDINGS: ?? Right temporal bone: ?? Postsurgical changes of prior right canal wall down mastoidectomy. Stapes is in stable position. No evidence of significant progressive soft tissue or fluid opacification of the right middle cavity. There is no interval bone demineralization or erosion identified. The otic capsule is intact. No interval defects of the tegmen. Similar thinning of the sigmoid plate. ? Left temporal bone: ?? Left canal wall down mastoidectomy with flap [...] IAC and included intracranial compartment is unremarkable. ?? IMPRESSION 1. Stable right temporal bone evaluation. 2. Stable postoperative appearance of the left temporal bone, without evidence of disease recurrence. I personally reviewed the above imaging. Procedure: Binocular Microscopic Ear Examination Right ear: Auricle normal exam. External auditory canal with cerumen impaction and epithelial debris, which was partially debrided. Tympanic membrane with perforation, which appears healthy, without evidence of cholesteatoma. ASSESSMENT/RECOMMENDATIONS - No evidence of recurrence on clinical exam, or today's CT temporal bones w contrast. Right mastoid cavity partially debrided. He is following up with Dr. Trinidad next week for routine cleaning. - Discussed his return to clinic in October with Dr. Hoang for reassessment. Discussed need for further imaging at that time, the 1 year kylah, and especially as the physical exam allows limited assessment of the surgical resection site. - The patient expressed understanding of these points and agreement with the plan, and all questions that were asked were answered to the patient's satisfaction. Plan: > Return to clinic in October. > Will obtain CT neck and CT temporal bones w contrast for next visit in October, 1 year kylah from treatment. > Patient should call if new concerning symptoms arise, or if they have any questions or concerns regarding their treatment. I appreciate the opportunity to be involved in Mr. Warner's care. 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
--- OUTSIDE RECORDS SUMMARY | 2024-02-10 15:15 | XMS_ITS | Encounter Summary ---
Author Organization [facility] Address [facility] [place] [address] Care Team Providers Care Horizontal Boring Mill Operator Name Role Phone Ilya Medina MD Primary Care Provider [phone] Encounter Details Date Type Department Care Team (Late st Contact Info) Description 12/28/2021 Refill Dermatology at [address] [phone] Lissy Olmos, RN [facility] Social History Tobacco Use Types Packs/Day Years [...] AM EST Office Visit Radiation Oncology at [address] [phone] Tyrese Fitzgerald MD [facility] [place] [address] documented as of this encounter Visit Diagnoses Not on filedocumented in this encounter Care Teams Horizontal Boring Mill Operator Relationship 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
--- OUTSIDE RECORDS SUMMARY | 2024-02-10 15:15 | XMS_ITS | Encounter Summary ---
Author Organization [facility] [place] [address] Care Team Providers Care Tariff Supervisor Name Role Phone Ilya Medina MD Primary Care Provider [phone] Encounter Details Date Type Department Care Team (Late st Contact Info) Description 11/05/2022 Telephone [place] [address] Shabnam Sherman Social History Tobacco Use Types Packs/Day Years [...] encounter Miscellaneous Notes * Telephone Encounter - Shabnam Sherman - 11/05/2022 2:00 PM EDT Contacting Caridad Sifuentes regarding PET CT order from 02/05/2022 to advise if this order is still needed given subsequent CT orders from early 2022. If this order is no longer needed, we are requesting that the order be cancelled documented in this encounter Plan of Treatment Upcoming Encounters Date Type Department Care Team (Late st Contact Info) Description 04/29/2024 11:00 AM EST Office Visit Radiation Oncology at [address] [phone] Tyrese Fitzgerald MD [facility] [place] [address] documented as of this encounter Visit Diagnoses Not on filedocumented in this encounter Care Teams Tariff Supervisor Relationship 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
--- OUTSIDE RECORDS SUMMARY | 2024-02-10 15:15 | XMS_ITS | Encounter Summary ---
Author Organization [facility] [place] [address] Care Team Providers Care Accounts Payable Payroll Coordinator Name Role Phone Ilya Medina MD Primary Care Provider [phone] Encounter Details Date Type Department Care Team (Late st Contact Info) Description 11/02/2021 Telephone Radiation Oncology at [address] [phone] Latasha Cali RN Social History [...] encounter Miscellaneous Notes * Telephone Encounter - Latasha Cali RN - 11/02/2021 3:57 PM EDT Radiation Oncology Nurse Telephone Note [facility] [place], [place] ----- Message from Tyrese Fitzgerald MD sent at 11/02/2021 2:01 PM EDT ----- Please call him and let him know to continue at this time. ----- Message ----- From: Latasha Cali RN Sent: 11/02/2021 1:56 PM EDT To: Tyrese Fitzgerald MD, [facility] Rad Onc Nurse ----- Message ----- From: Gail Membreno Sent: 11/02/2021 1:13 PM EDT To: [facility] Rad Onc Nurse Suman called in today wondering if he can stop using the special toothpaste and the guards that has prescribed. Best call back number [phone] 11/02/21 16:00 Telephone call to patient to relay Dr Fitzgerald's message. Patient verbalized understanding to continue using the fluoride toothpaste and guard. He states he has no other questions or concerns at this time. We also reviewed that he has an appointment with Dr Fitzegrald on 11/08/21 at 2PM. documented in this encounter Plan of Treatment Upcoming Encounters Date Type Department Care Team (Late st Contact Info) Description 04/29/2024 11:00 AM EST Office Visit Radiation Oncology at [address] [phone] Tyrese Fitzgerald MD [facility] DR [place] [address] documented as of this encounter Visit Diagnoses Not on filedocumented in this encounter Care Teams Accounts Payable Payroll Coordinator Relationship 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
--- OUTSIDE RECORDS SUMMARY | 2024-02-10 15:15 | XMS_ITS | Encounter Summary ---
Author Organization [facility] Address [facility] [place] [address] Care Team Providers Care Ham Rolling Machine Operator Name Role Phone Ilya Medina MD Primary Care Provider [phone] Encounter Details Date Type Department Care Team (Late st Contact Info) Description 01/02/2022 Orders Only [place] [address] Tyrese Fitzgerald MD [facility] [place] [address] Malignant neoplasm of bones of skull and [...] EST Office Visit Radiation Oncology at [address] [phone] Tyrese Fitzgerald MD [facility] [place] [address] documented as of this encounter Results * Creatinine (01/30/2022 12:43 PM EDT) Creatinine 0.93 0.80 - 1.50 mg/dL [facility] Est Glomerular Filtration Rate 91 >=60 mL/min/1. 73 m?? 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
--- OUTSIDE RECORDS SUMMARY | 2024-02-10 15:15 | XMS_ITS | Encounter Summary ---
Author Organization [facility] Address [facility] [place] [address] Care Team Providers Care Tooling Mechanic Name Role Phone Ilya Medina MD Primary Care Provider [phone] Encounter Details Date Type Department Care Team (Late st Contact Info) Description 10/02/2021 Orders Only [place] [address] Tyrese Fitzgerald MD [facility] [place] [address] Social History Tobacco Use Types Packs/Day Years [...] EST Office Visit Radiation Oncology at [address] [phone] Tyrese Fitzgerald MD [facility] [place] [address] documented as of this encounter Visit Diagnoses Not on filedocumented in this encounter Care Teams Tooling Mechanic Relationship 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
--- OUTSIDE RECORDS SUMMARY | 2024-02-10 15:15 | XMS_ITS | Encounter Summary ---
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, except mandible Procedures CT Temporal Bone w Contrast Kalie Guillermo MD [facility] [place] [address] [facility] [place] [address] Referral ID Status Reason Start Date Expiration Date V isits Requested Visits Authorized [id number] Closed Specialty Service Requested 06/06/2022 12/05/2023 1 1 Reason for Visit * Diagnostic Test (Routine) - Closed Specialty Diagnoses / Procedures Referred By Contac t Referred To Contact Radiology Diagnoses 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, except mandible Procedures CT Temporal Bone w Contrast Kalie Guillermo MD [facility] [place] [address] [facility] [place] [address] Referral ID Status Reason Start Date Expiration Date V isits Requested Visits Authorized [id number] Closed Specialty Service Requested 06/06/2022 12/05/2023 1 1 Encounter Details Date Type Department Care Team (Latest Contact Info) Description 08/09/2022 11:42 AM EDT - 08/09/2022 11:59 PM EDT Hospital Encounter CT Scan [place] [facility] [place] [phone] Tyrese Fitzgerald MD [facility] [place] [address] Malignant neoplasm of bones of skull and [...] 2 times daily. 30 tablet 12 02/06/2011 Miscellaneous Medical Supply Misc by [facility] [place].(Non-Drug; Combo Route) route. Phytoplex Remedy Moisturizing Cream- Apply to area of radiation twice a day but no less than 2 hours before a treatment. 01/16/2023 documented as of this encounter Plan of Treatment Upcoming Encounters Date Type Department Care Team (Late st Contact Info) Description 04/29/2024 11:00 AM EST Office Visit Radiation Oncology at [address] [phone] Tyrese Fitzgerald MD [facility] [place] [address] documented as of this encounter Procedures Procedure Name Priority Date/Time Associated Diagnosis Comments CT TEMPORAL BONE W CONTRAST Routine 08/09/2022 12:23 PM EDT Malignant neoplasm of bones of [...] questions please contact the health wound care center consultant that requested your imaging first. ? Electronically signed by: Jose Walters DO, [facility] ??([phone]), at 08/10/2022 10:49 AM Narrative 08/10/2022 10:49 AM EDT EXAMINATION: CT [...] included intracranial compartment is unremarkable. Procedure Note oJse Walters DO - 08/10/2022 EXAMINATION: CT TEMPORAL [...] have questions please contactthe health wound care center consultant that requested your imaging first. Electronically signed by: Jose Walters DO, [facility]([phone]), at 08/10/2022 10:49 AM Tyrese Fitzgerald MD IMG CT ORDERABLES documented [...] ONCE PRN, 1 dose, Starting on Lyndsay 08/09/22 at 1206, Until Lyndsay 08/09/22 at 1216, Per Protocol, Warning Vesicant/Irritant Medication , Radiology Contrast, Routine Given 08/09/2022 12:16 PM EDT 110 mLs documented in this encounter Care Teams Foot Roentgenologist Relationship 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
--- OUTSIDE RECORDS SUMMARY | 2024-02-10 15:15 | XMS_ITS | Encounter Summary ---
Author Organization [facility] Address [facility] [place] [address] Care Team Providers Care Workflow Developer Name Role Phone Ilya Medina MD Primary Care Provider [phone] Encounter Details Date Type Department Care Team (Late st Contact Info) Description 12/27/2021 1:00 PM EDT Office Visit Radiation Oncology at [address] [phone] Tyrese Fitzgerald MD [facility] [place] [address] Malignant neoplasm of bones of skull and [...] Sign Reading Time Taken Comments Blood Pressure 136/88 12/27/2021 1:28 PM EDT Pulse 68 12/27/2021 1:28 PM EDT Temperature 36.7 ??C (98 ??F) 12/27/2021 1:2 8 PM EDT Respiratory Rate - - Oxygen Saturation 99% 12/27/2021 1:2 8 PM EDT Inhaled Oxygen Concentration - - Weight 110.8 kg (244 lb 3.2 oz) 022 1:28 PM EDT with shoes Height - - Body Mass Index 35.04 10/25/2021 9:24 AM EDT documented in this encounter Progress Notes * Tyrese Fitzgerald MD - 12/27/2021 1:00 PM EDT FOLLOW UP VISIT NOTE Suman Warner is a 66 y.o. 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 Adjuvant radiotherapy completed 10/31/21. Current treatment dose: 60 Gy in 30 fractions. Concomitant Therapy: N Changes in medical condition Pain: no issues Secretions/Dryness: mild xerostomia, now mild dysgeusia (~ 95% back) Swallowing Function: no issues except for very dry foods Nutrition / G tube: no G tube, all by mouth Skin: no issues GI: -N/V: no nausea -Bowels: no issues Dizziness: resolved Other: he notes an area on his right index finger, at the 1st and second phalanges, with some desquamation and irritation. No inciting trauma, stable over the past few weeks. Nutrition Assessment: Weight : 113.9 kg initial Change: 109 => 111 Objective: Vitals: 12/27/21 1328 BP: 136/88 Patient Position: Sitting Pulse: 68 Temp: 36.7 ??C (98 ??F) TempSrc: Temporal SpO2: 99% Weight: 110.8 kg (244 lb 3.2 oz) SKIN: no skin erythema HEENT: no mucositis Assessment: Mild toxicity. Overall doing well. CTCAE TOXICITY GRADES (see below for mims): Site Grade Skin 0 Xerostomia 0 Pharyngeal Mucositis 0 Dysphagia 0 Hoarseness 0 TREATMENT RESPONSE: No change Plan: ?? Pain control: none needed at this time ?? Skin: Ptplex cream prn ?? Alimentation: manufacturing analyst following ?? Weight stable, all by mouth at this time ?? Finger: to see his PCP or his Machine Lead Burner given that this area does not appear to be healing well. Unrelated to treatment. ?? 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
--- OUTSIDE RECORDS SUMMARY | 2024-02-10 15:16 | XMS_ITS | Encounter Summary ---
Author Organization [facility] Address [facility] [place] [address] Care Team Providers Care Car Framer Name Role Phone Ilya Medina MD Primary Care Provider Encounter Details Date Type Department Care Team (Late st Contact Info) Description 08/24/2021 1:00 PM EDT Office [place] [address] Jayne Darby MD [facility] [place] [address] Cancer of temporal bone Social History Tobacco [...] place to sleep or slept in a prison (including now)? No 07/19/2021 Sex and Gender [...] - Inhaled Oxygen Concentration - - Weight 113.4 kg (250 lb) 08/24/2021 12:50 PM EDT Height 177.8 cm (5' 10) 08/24/2021 12:50 PM EDT Body Mass Index 35.87 08/24/2021 12:50 PM EDT documented in this encounter Progress Notes * Jayne Darby MD - 08/24/2021 1:00 PM EDT OTOLARYNGOLOGY - HEAD & NECK SURGERY OUTPATIENT CLINIC FOLLOW-UP NOTE Name: Suman Warner Age/Sex: 66 y.o. male ENT Attending: Dr. Hoang Patient ID Suman Warner is a 66 y.o. 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 Hernández & [...] Pedicled Flap (6 cm x 6 cm) Adjuvant Radiation (Pending) Interval History Minimal pain at site. Replacing the dressing. Less drainage than before. Minimal facial nerve weakness. Finishing antibiotics today. Physical Exam General: NAD, non-ill appearing Face: Very mild facial weakness of the LEFT face, intermittent less blinking of the LEFT eye, HB I Eyes: EOMI, conjunctiva healthy Ears: Normal right auricle, LEFT auricle meatal opening with healthy bleeding temporalis flap. Expressed serous fluid with massage of post-auricular region. Small area of inferior dehiscence but no purulent drainage expressed. Nose: Patent nares, grossly normal appearance Oral Cavity: Mucosa is pink Neck: Neck incision connected to temporal region healthy, adrienne removed. Chest: Unlabored breathing Neuro: Alert & oriented, moving extremities x 4 ASSESSMENT & RECOMMENDATIONS Suman Warner is a 66 y.o. male He is doing well after surgery and his flap is healthy. He has no signs of infection and very minimal swelling and also very mild facial weakness which is better than pre-operatively. At least 20 minutes of this visit was spent counseling patient on adjuvant treatment plans and post-operative recovery process. Recommendations: 1. Follow-up in 1 week to ensure flap is continuing to heal well prior to radiation. Jayne Darby MD, PGY-5 08/24/21 1:06 PM * Jose D Hoang MD - 08/24/2021 1:00 PM EDT Patient seen and examined. Agree with resident. 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
--- OUTSIDE RECORDS SUMMARY | 2024-02-10 15:16 | XMS_ITS | Encounter Summary ---
Author Organization [facility] Address [facility] [place]lyssia [place] [address] Care Team Providers Care Orchestra Musician Name Role Phone Ilya Medina MD Primary Care Provider [phone] Reason for Visit * Reason Comments IV Access PIV placement for SI M Encounter Details Date Type Department Care Team (Late st Contact Info) Description 08/01/2021 12:00 PM EDT Infusion Hematology Oncology at [address] [phone] Malignant neoplasm of bones of skull and [...] place to sleep or slept in a usp (including now)? No 07/19/2021 Sex and Gender Information Value Date Recorded Sex Assigned at Male 03/25/2021 10:08 AM EST Gender Identity Male 03/25/2021 10:08 AM EST Sexual Orientation Straight 03/25/2021 10 :08 AM EST documented as of this encounter Progress Notes * Indy Giron RN - 08/01/2021 12:00 PM EDT Patient arrived to infusion area for PIV start. #20g PIV placed in right forearm. Excellent blood return noted, and PIV flushed easily. Patient tolerated procedure well. Report given to Radiation Oncology Nurse. 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
--- OUTSIDE RECORDS SUMMARY | 2024-02-10 15:16 | XMS_ITS | Encounter Summary ---
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, except mandible Procedures Simulation for Radiation Therapy Planning Tyrese Fitzgerald MD [facility] [place] [address] [address] Rad Onc Office [address] [place] [phone] Referral ID Status Reason Start Date Expiration Date V isits Requested Visits Authorized [id number] Closed Consult, Test & Treat 08/28/2021 08/28/2022 1 1 Encounter Details Date Type Department Care Team (Late st Contact Info) Description 09/06/2021 8:30 AM EDT Ancillary Appointment Radiation Oncology at [address] [phone] Tyrese Fitzgerald MD [facility] [address] Social History Tobacco Use Types Packs/Day Years Used Date Smoking Tobacco: Never Smokeless Tobacco: Never Alcohol Use Standard Drinks/Week Comments No 0 (1 standard drink = 0.6 oz pur e alcohol) Overall Financial Resource Strain (CARDIA) Gertrudis r Date Recorded How hard is it [...] Sign Reading Time Taken Comments Blood Pressure 146/94 09/06/2021 7:41 AM EDT Pulse 62 09/06/2021 7:41 AM EDT Temperature 36.7 ??C (98.1 ??F) 09/06/2021 7:41 AM ED T Respiratory Rate 16 09/06/2021 7:41 AM EDT Oxygen Saturation 99% 09/06/2021 7:41 AM EDT Inhaled Oxygen Concentration - - Weight 115.3 kg (254 lb 3.2 oz) 09/06/2021 7:41 AM EDT Height - - Body Mass Index 36.47 08/24/2021 12:50 PM EDT documented in this encounter Progress Notes * Negin Damon RN - 09/06/2021 8:30 AM EDT Section of Radiation Oncology Contrast Information Safety Questions 1. Has the patient ever had an x-ray study before which involved injection of a contrast agent or x-ray dye? yes If yes, did the patient have any reaction to the injection? no If yes, please describe the reaction: none 2. Is the patient allergic to any foods, medicines, or other substances? no No Known Allergies 3. Has the patient received any contrast within the past 24 hours? no 4. Does the patient have any procedures scheduled in the next 24 hours? no 5. Does the patient have a history of renal/kidney problems or kidney surgery? no 6. Does the patient have diabetes? no 7. Does the patient have high blood pressure? no 8. Is the patient currently being treated for gout? no 9. If the answer to any of the questions #5-8 was yes, has the patient had a creatinine level and eGFR drawn within the past 45 days? yes Lab Results Component Value Date CREATININE 0.88 08/16/2021 If no, when will it be drawn? A creatinine less than or equal to 1.6 and a eGFR of 45 or greater OK to proceed with IV contrast. If the creatinine is greater than 1.6 and the eGFR is less than 45, consult with the ordering provider. If an eGFR is less than 30, IV contrast should not be administered and another contrast agent may be ordered by the provider (Visipaque). 10. Is the patient currently taking any of the following medications? (Actoplus Met, Avandamet, Glucovance, Janumet, Jendadueto, Kombiglyze, Metaglip, PrandiMet, Glugophage, Glumetza, Riomet, Metformin) no If yes, when was last dose taken? n/a 9. If patient is on any of the medications in question #10, consult with the ordering provider if the patient needs to stop the medication and if they will require further lab studies. * Negin Damon RN - 09/06/2021 8:[address] Contrast Simulation Nursing Note: Suman Warner [id number] 08/07/1985 IV ACCESS: PIV GAUGE: 20 Please see infusion note for details BLOOD RETURN: yes CT simulation of: Head and neck MD present for contrast injection: Dr. 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 He did not start the plan created from the prior simulation as he required a flap revision, and now returns for re- simulation. An intravenous line was placed in anticipation of contrast administration. The patient was then brought to the simulation room and a time- out was performed per protocol. he was then placed on the simulation table and a custom cushion was constructed for his neck. Scars were marked with radio-opaque markers and bolus was placed under physician supervision. A custom aquaplast mask was then created. The simulation CT scan was performed with contrast, image s were reviewed and approved by the physician, and tattoos were created by the therapy staff as indicated. The patient tolerated the procedure without difficulty, and was given a time to return to start radiotherapy. 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
--- OUTSIDE RECORDS SUMMARY | 2024-02-10 15:16 | XMS_ITS | Encounter Summary ---
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, except mandible Procedures Simulation for Radiation Therapy Planning Tyrese Fitzgerald MD [facility] [place] [address] St Rad Onc Office [address] [place] [phone] Referral ID Status Reason Start Date Expiration Date V isits Requested Visits Authorized [id number] Closed Consult, Test & Treat 07/28/2021 07/28/2022 31 31 Encounter Details Date Type Department Care Team (Late st Contact Info) Description 08/01/2021 1:00 PM EDT Ancillary Appointment Radiation Oncology at [address] [phone] Tyrese Fitzgerald MD [facility] [place] [address] Social History Tobacco Use Types Packs/Day Years [...] AM EST Office Visit Radiation Oncology at [address] [phone] Tyrese Fitzgerald MD [facility] [place] [address] Scheduled Orders Name Type Priority Associated Diagnoses Orde r Schedule Simulation for Radiation Therapy Planning Procedures Routine 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
--- OUTSIDE RECORDS SUMMARY | 2024-02-10 15:16 | XMS_ITS | Encounter Summary ---
Author Organization [facility] [place] [address] Care Team Providers Care Rodent Control Worker Name Role Phone Ilya Medina MD Primary Care Provider [phone] Encounter Details Date Type Department Care Team (Late st Contact Info) Description 09/12/2021 Telephone [place] [address] Shabnam Sherman Social History Tobacco [...] * Telephone Encounter - Shabnam Sherman - 09/12/2021 4:32 PM EDT Called and left voicemail for patient at [phone] regarding appointment on 09/[address] Sanders to 4:00. Provided appt info and requested call back to confirm change in appts documented in this encounter Plan of Treatment Upcoming Encounters Date Type Department Care Team (Late st Contact Info) Description 04/29/2024 11:00 AM EST Office Visit Radiation Oncology at [address] [phone] Tyrese Fitzgerald MD [facility] [place] [address] documented as of this encounter Visit Diagnoses Not on filedocumented in this encounter Care Teams Rodent Control Worker Relationship 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
--- OUTSIDE RECORDS SUMMARY | 2024-02-10 15:16 | XMS_ITS | Encounter Summary ---
Author Organization [facility] Address [facility] [place] [address] Care Team Providers Care Laborer Cheesemaking Name Role Phone Ilya Medina MD Primary Care Provider [phone] Reason for Visit * Auth/Cert Specialty Diagnoses / Procedures Referred By Contac t Referred To Contact Diagnoses S/P debridement Flap Necrosis Procedures PRO MUSCLE MYOCUTANEOUS/FASCIOUCUTANEOUS FLAP HEAD&NECK W/NAMED VASC PEDCL PRO DEBRIDEMENT MUSCLE AND FASCIA 20 SQ CM/< FLAP, MYOCUTANEOUS OR FASCIOCUTANEOUS, HEAD & NECK W NAMED VASC PEDICLE DEBRIDEMENT SKIN, SUBCU, MUSCLE, HEAD/NECK (WRVU 2.7) Referral ID Status Reason Start Date Expiration Date Visits Re quested Visits Authorized [id number] 1 1 Encounter Details Date Type Department Care Team (Latest Contact Info) Description 08/15/2021 11:43 AM EDT - 08/18/2021 12:20 PM EDT Hospital Encounter [address] [place] [id number] Jose D Hoang MD [facility] [address] Encounter for post surgical wound check; Cancer of temporal bone Discharge Disposition: Home Social History Tobacco Use [...] Sign Reading Time Taken Comments Blood Pressure 135/77 08/18/2021 3:18 AM EDT Pulse 73 08/17/2021 7:42 PM EDT Temperature 36.8 ??C (98.2 ??F) 08/18/2021 3:18 AM ED T Respiratory Rate 18 08/18/2021 3:18 AM EDT Oxygen Saturation 92% 08/18/2021 3:18 AM EDT Inhaled Oxygen Concentration - - Weight 113.4 kg (250 lb) 08/15/2021 11:53 PM EDT Height 177.8 cm (5' 10) 08/15/2021 11:53 PM EDT Body Mass Index 35.87 08/15/2021 11:53 PM EDT documented in this encounter Discharge Summaries * Elsie Kerr PA - 08/17/2021 7:13 AM EDT OTOLARYNGOLOGY - HEAD & NECK SURGERY DISCHARGE SUMMARY General Info Patient Name: Suman Warner Patient Age: 66 y.o. 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 In follow up, there was concern for partial flap necrosis and patient was scheduled for flap debridement and temporalis muscle flap coverage. Reason for Admission: Postoperative monitoring Hospital Course: The patient underwent debridement of the LEFT ear flap on 08/16 with placement of temporalis muscle flap. Patient tolerated the above procedure well and was admitted post-operatively for routine care. The patient had LEFT neck drain which was removed on 08/18/21. Patient had pressure dressing which was removed on 08/18/21 and replaced with a caio dressing. His hospital course was uncomplicated and he was deemed medically stable for discharge home at 3 Days Post-Op. Prior to discharge his pain was controlled on oral pain meds and he was tolerating a Regular diet. Physical Exam on Discharge: General: NAD, non-ill appearing Face: HB 2 on LEFT with very slight weakness in smile Eyes: EOMI, conjunctiva healthy Ears: Hearing aid on RIGHT, [place] dressing in place on LEFT, flap site underneath appears well perfused, xeroform dressing exchanged from ear canal Nose: Patent nares, grossly normal appearance Neck: Soft, trachea midline; incision c/d/i, no evidence of hematoma Chest: Non-labored breathing, regular rate Neuro: Alert & oriented, moving extremities x 4 Lab Data: Recent Labs 08/16/21 0338 WBC 7.9 HGB 15.1 HCT 42.8 PLATELET 208 NA 135 K 4.3 CL 102 CO2 20* BUN 16 CREATININE 0.88 GLUCOSE 199 CALCIUM 8.8 MAGNESIUM 0.62* PHOS 2.9 Imaging and Other Studies: CT Rad Onc Neuro Interp Only Result Date: 08/01/2021 EXAMINATION: CT RAD ONC NEURO INTERP ONLY CLINICAL HISTORY: pT3N0 (Modified [place] 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 Adjuvant radiotherapy. TECHNIQUE: CT head/neck with contrast. COMPARISON: PET CT scan 05/04/2021. FINDINGS: Left subtotal temporal bone resection cavity with flap reconstruction identified. The left superficial inferior parotid gland is been resected. Subcutaneous air, surgical adrienne and nonspecific soft tissue thickening are contained within and surrounding the flap. No discrete massesare identified. Left submental soft tissue defect from flap harvesting noted. No lymphadenopathy identified. Visualized portions of the brain are unremarkable. Postsurgical changes as above. Thank you for letting us participate in the care of this patient. Ifyou are a health care provider and have any questions regarding this report, please contact the number below. For patients who have questions please contact the health healthcare liaison that requested your imaging first. Discharge Info Discharge Condition: Stable Discharge to: Home Discharge Medications: Your Medications New Medications Dose Details clindamycin 300 mg Cap Commonly known as: CLEOCIN Take 1 capsule by mouth 4 times daily for 7 days. 300 mg Quantity: 28 capsule Refills: 0 Continued medications with new dosing Dose Details RABEprazole 20 mg Tbec Commonly known as: Aciphex Take 1 tablet by mouth 2 times daily. What changed: when to take this 20 mg Quantity: 30 tablet Refills: 12 Continued medications, unchanged Dose Details acetaminophen 325 mg Tab Commonly known as: Tylenol Take 2 tablets by mouth every 4 hours. 650 mg Refills: 0 atorvastatin 20 mg Tab Commonly known as: Lipitor Refills: 0 carboxymethylcellulose 0.5 % Dpet Commonly known as: Refresh Plus Place 1 drop into both eyes 3 times daily as needed. 1 drop Refills: 0 cyanocobalamin (Vitamin B-12) 1,000 mcg Tab Commonly known as: Vitamin B-12 Take 1,000 mcg by mouth daily. 1,000 mcg Refills: 0 dorzolamide-timoloL 22.3-6.8 mg/mL Drop Commonly known as: Cosopt Refills: 0 erythromycin 5 mg/gram (0.5 %) Oint Commonly known as: Romycin Place into the left eye 6 times daily. Quantity: 3.5 g Refills: 0 FLUoxetine 10 mg Cap Commonly known as: PROzac Take 10 mg by mouth daily. 10 mg Refills: 0 ibuprofen 400 mg Tab Commonly known as: Motrin Take 1 tablet by mouth every 6 hours. 400 mg Quantity: 30 tablet Refills: 0 loperamide 2 mg Cap Commonly known as: Imodium A-D Take 2 mg by mouth every other day. 2 mg Refills: 0 Myrbetriq 25 mg Tablet sr Take by mouth daily. Generic drug: mirabegron Refills: [address] 1 each into the left eye nightly. Generic drug: white petrolatum-mineral oiL 1 each Refills: 0 tamsulosin 0.4 mg Cap Commonly known as: Flomax Take 0.4 mg by mouth daily. 0.4 mg Refills: 0 STOPPED Medications amoxicillin-clavulanate 875-125 mg Tab Commonly known as: Augmentin ciprofloxacin-dexamethasone 0.3-0.1 % Drps Commonly known as: Ciprodex predniSONE 10 mg Tab Commonly known as: Deltasone Updated Allergies/ADRs: No Known Allergies Info for Patient Patient Instructions Instructions for Patient at Discharge: What to expect: You will have soreness which will improve over the next several days. The area around the incision may be numb. This should recover over the next few months. Medications: Antibiotics - take the antibiotics as prescribed Take Clindamycin as prescribed until 08/21 Pain Control - use acetaminophen (Tylenol) and/or ibuprofen (Motrin, Advil) as needed. You can take 500 mg to 650 mg of Tylenol every 4-6 hours as needed. Do not exceed 4g acetaminophen per day and do not drink alcohol while taking tylenol. You can also take 400 to 600 mg of Ibuprofen (Motrin,Advil) every 6 hours as needed. Constipation - Consider the use of OTC Senna/Docusate, Miralax, Metamucil, prune juice or various suppositories if you have any constipation Incision Care: Your incision was closed with sutures/adrienne. These will need to be removed in about 7-14 days, which will usually occur at your follow up appointment. Use diluted peroxide to clean the incision andapply Aquaphor/Vaseline twice daily. Keep the incision dry for the next two days. After that you may get the area wet and pat dry (it is okay to shower). Do not submerge the incision for at least 2 weeks. Wound Care: Change the wound dressing/packing according to the following instructions: Place a ball of xeroformwith Aquaphor and place it in the ear canal. Replace this once daily. Keep the [place] dressing on to keep pressure to the area. Activity: A good rule of thumb is if it hurts don't do it. Keep your head elevated when lying flat. No heavy lifting or straining for the next week. No smoking, this is important for wound healing. Diet: Resume baseline diet You should call your doctor if you develop: -Increasing pain and redness -Increasing drainage from the wound -Fever > 38.5Celsius or 101 Fahrenheit -Bleeding Contact: -You can reach the ENT clinic at [phone] for appointment questions. -The ENT triage nurse is available at [phone] -For urgent issues during evenings (5 PM - 7 AM) and weekends the ENT resident sales promotion officer can be reached through the main hospital dye jig operator at [phone] Follow Up: You will need to follow up with ENT in 7-10 days. This appointment has been requested with Dr. Darby. You will be notified once it is scheduled, if you do not already see it below. If you do not hear from us in a timely manner, please call to receive your date and time. Currently Scheduled Appointments: Future Appointments and Orders Future Appointments and Orders Future Appointments Provider Department Dept Phone 08/25/2021 1:00 PM Jayne Darby MD [place] [facility] [place] at: [facility] Area [phone] 10/06/2021 8:50 AM [facility] MR 6 MRI at [facility] [place]rive at: [facility] [phone] 10/06/2021 11:30 AM Apolinar Hernández MD Otol[place]ology at [facility] [place]rive at: [facility] [employer] Area [phone] General Instructions None __ Your Medications New Medications Dose Details clindamycin 300 mg Cap Commonly known as: CLEOCIN Take 1 capsule by mouth 4 times daily for 7 days. 300 mg Quantity: 28 capsule Refills: 0 Continued medications with new dosing Dose Details RABEprazole 20 mg Tbec Commonly known as: Aciphex Take 1 tablet by mouth 2 times daily. What changed: when to take this 20 mg Quantity: 30 tablet Refills: 12 Continued medications, unchanged Dose Details acetaminophen 325 mg Tab Commonly known as: Tylenol Take 2 tablets by mouth every 4 hours. 650 mg Refills: 0 atorvastatin 20 mg Tab Commonly known as: Lipitor Refills: 0 carboxymethylcellulose 0.5 % Dpet Commonly known as: Refresh Plus Place 1 drop into both eyes 3 times daily as needed. 1 drop Refills: 0 cyanocobalamin (Vitamin B-12) 1,000 mcg Tab Commonly known as: Vitamin B-12 Take 1,000 mcg by mouth daily. 1,000 mcg Refills: 0 dorzolamide-timoloL 22.3-6.8 mg/mL Drop Commonly known as: Cosopt Refills: 0 erythromycin 5 mg/gram (0.5 %) Oint Commonly known as: Romycin Place into the left eye 6 times daily. Quantity: 3.5 g Refills: 0 FLUoxetine 10 mg Cap Commonly known as: PROzac Take 10 mg by mouth daily. 10 mg Refills: 0 ibuprofen 400 mg Tab Commonly known as: Motrin Take 1 tablet by mouth every 6 hours. 400 mg Quantity: 30 tablet Refills: 0 loperamide 2 mg Cap Commonly known as: Imodium A-D Take 2 mg by mouth every other day. 2 mg Refills: 0 Myrbetriq 25 mg Tablet sr Take by mouth daily. Generic drug: mirabegron Refills: [address] 1 each into the left eye nightly. Generic drug: white petrolatum-mineral oiL 1 each Refills: 0 tamsulosin 0.4 mg Cap Commonly known as: Flomax Take 0.4 mg by mouth daily. 0.4 mg Refills: 0 STOPPED Medications amoxicillin-clavulanate 875-125 mg Tab Commonly known as: Augmentin ciprofloxacin-dexamethasone 0.3-0.1 % Drps Commonly known as: Ciprodex predniSONE 10 mg Tab Commonly known as: Deltasone Scheduled Appointments: Future Appointments Date Time Provider Department Center 08/25/2021 1:00 PM Jayne Darby MD [facility] 10/06/2021 8:50 AM [facility] MR 6 MH MRI [facility] Rad 10/06/2021 11:30 AM Apolinar Hernández MD [facility] Outpatient Services/Studies: No discharge procedures on file. Primary Care Doctor: Ilya Medina MD [phone] Signed: YUE Huddleston 08/18/2021 Routed to Estefany Quiñones and Ailyn Farris since H&N Cancer patient documented in this encounter Discharge Instructions * Patient Instructions* Elsie Kerr PA - 08/16/2021 10:58 AM EDT Instructions for Patient at Discharge: What to expect: You will have soreness which will improve over the next several days. The area around the incision may be numb. This should recover over the next few months. Medications: Antibiotics - take the antibiotics as prescribed Take Clindamycin as prescribed until 08/21 Pain Control - use acetaminophen (Tylenol) and/or ibuprofen (Motrin, Advil) as needed. You can take 500 mg to 650 mg of Tylenol every 4-6 hours as needed. Do not exceed 4g acetaminophen per day and do not drink alcohol while taking tylenol. You can also take 400 to 600 mg of Ibuprofen (Motrin,Advil) every 6 hours as needed. Constipation - Consider the use of OTC Senna/Docusate, Miralax, Metamucil, prune juice or various suppositories if you have any constipation Incision Care: Your incision was closed with sutures/adrienne. These will need to be removed in about 7-14 days, which will usually occur at your follow up appointment. Use diluted peroxide to clean the incision andapply Aquaphor/Vaseline twice daily. Keep the incision dry for the next two days. After that you may get the area wet and pat dry (it is okay to shower). Do not submerge the incision for at least 2 weeks. Wound Care: Change the wound dressing/packing according to the following instructions: Place a ball of xeroformwith Aquaphor and place it in the ear canal. Replace this once daily. Keep the Caio dressing on to keep pressure to the area. Activity: A good rule of thumb is if it hurts don't do it. Keep your head elevated when lying flat. No heavy lifting or straining for the next week. No smoking, this is important for wound healing. Diet: Resume baseline diet You should call your doctor if you develop: -Increasing pain and redness -Increasing drainage from the wound -Fever > 38.5Celsius or 101 Fahrenheit -Bleeding Contact: -You can reach the ENT clinic at [phone] for appointment questions. -The ENT triage nurse is available at [phone] -For urgent issues during evenings (5 PM - 7 AM) and weekends the ENT resident sales promotion officer can be reached through the main hospital dye jig operator at [phone] Follow Up: You will need to follow up with ENT in 7-10 days. This appointment has been requested with Dr. Darby. You will be notified once it is scheduled, if you do not already see it below. If you do not hear from us in a timely manner, please call to receive your date and time. Currently Scheduled Appointments: Future Appointments and Orders Future Appointments and Orders Future Appointments Provider Department Dept Phone 08/25/2021 1:00 PM Jyane Darby MD [place] [facility] [place] at: [facility] [employer] Area [phone] 10/06/2021 8:50 AM [facility] MR 6 MRI at [facility] [place]rive at: [facility] [phone] 10/06/2021 11:30 AM Apolinar Hernández MD Otolaryngology at [facility] [place]rive at: [employer] [employer] Area [phone] documented in this encounter Medications at Time of Discharge [...] 2 times daily. 30 tablet 12 02/06/2011 FLUoxetine (PROzac) 10 mg Capsule Take by mouth. 01/05/2021 09/20/2021 clindamycin (CLEOCIN) 300 mg Capsule Take 1 capsule by mouth 4 times daily for 7 days. 28 capsule 08/18/2021 08/25/2021 acetaminophen (Tylenol) 325 mg Tablet Take 2 tablets by mouth every 4 hours. 0 07/01/2021 12/28/2021 carboxymethylcellulose (Refresh Plus) 0.5 % Dropperette Place 1 drop into both eyes 3 times daily as needed. 07/01/2021 12/28/2021 erythromycin (Romycin) 5 mg/gram (0.5 %) Ointment Place into the left eye 6 times daily. 3.5 g 07/01/2021 10/11/2021 ibuprofen (Motrin) 400 mg Tablet Take 1 tablet by mouth every 6 hours. 30 tablet 07/01/2021 12/28/2021 documented as of this encounter Progress Notes * Yaquelni Pyle RN - 08/18/2021 12:20 PM EDT Suman Warner discharged to home by private car with . All belongings sent with patient. LYDIA removed, incision C/D/I, skin free from pressure ulcers. Discharge instructions, medications, and follow-up appointments reviewed, education provided on s/s infection, activity, all questions answered. Patient instructed to call with concerns. * Jose D Hoang MD - 08/18/2021 9:48 AM EDT OTOLARYNGOLOGY - HEAD & NECK SURGERY DAILY PROGRESS NOTE Name: Suman Warner Age/Sex: 66 y.o. male Attending: Jose D Hoang MD Hospital Day: 4 3 Days Post-Op Patient ID/Reason for Admission Suman Warner is a 66 y.o. 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 In follow up, there was concern for partial flap necrosis and patient returned to OR 4/5 for flap debridement and temporalis muscle flap coverage. Interval History No events overnight No complaints this AM Patient recovering well, mastoid dressing and drain removed. Vitals Last value 24hr Range Temperature: 36.8 ??C (98.2 ??F) Temp: [36.5 ??C (97.7 ??F)-37 ??C (98.6 ??F)] Heart Rate: 73 Heart Rate: [73] Blood Pressure: 135/77 BP: (126-135)/(62-82) Respiratory Rate: 18 Resp: [16-18] SpO2: 92 % SpO2: [92 %-98 %] Intake & Output Intake/Output Summary (Last 24 hours) at 08/18/2021 0948 Last data filed at 08/18/2021 0400 Gross per 24 hour Intake 180 ml Output 610 ml Net -430 ml Physical Exam General: NAD, non-ill appearing Face: HB 2 on LEFT with very slight weakness in smile Eyes: EOMI, conjunctiva healthy Ears: Hearing aid on RIGHT, pressure dressing in place on LEFT with scant serosanguinous discharge,taken down at bedside, flap site appears well perfused Nose: Patent nares, grossly normal appearance Neck: Soft, trachea midline; MAURO drain with serosanguinous output to LCWS, incision c/d/i, no evidence of hematoma Chest: Non-labored breathing, regular rate Abdomen: Soft, non-tender Neuro: Alert & oriented, moving extremities x 4 Labs Recent Labs 08/16/21 0338 WBC 7.9 HGB 15.1 HCT 42.8 PLATELET 208 NA 135 K 4.3 CL 102 CO2 20* BUN 16 CREATININE 0.88 GLUCOSE 199 CALCIUM 8.8 MAGNESIUM 0.62* PHOS 2.9 Imaging None *Personally reviewed and evaluated ASSESSMENT & PLAN Suman Warner is a 66 y.o. male s/p revision of devitalized flap to left ear after subtotal temporal bone resection, parotidectomy, for SCCa of middle ear, 3 Days Post-Op. Patient is recovering well. Surgical/Head&Neck: Apply aquaphor to incisions Will plan to give patient a caio ear dressing to wear today Neurologic: Pain controlled with acetaminophen/ibuprofen GREGORY, oxycodone PRN Cardiovascular: Statin Pulmonary: Oxygenation on RA Gastrointestinal: Zofran PRN; home PPI Genitourinary: IDALIA Musculoskeletal: IDALIA Fluids/Electrolytes: IDALIA Nutrition: Regular diet Infectious Disease: WBC WNL, no further labs needed, Clinda (08/15-08/21) culture directed Hematology: Hemoglobin stable, no further labs Endocrine: IDALIA Consults: None Lines: n/a Prophylaxis: SQH, SCD, ambulation PRN, PPI Disposition: Floor status, Attempt Cardiopulmonary Resuscitation - Inpatient Discharge: Plan for d/c 08/18; Needs VNA for wound care; Follow-up ENT TBD Allegra Aldana MD, PGY2 08/18/21 9:48 AM ENT Team Pager: [phone] * Tiny Alfaro, RN - 08/18/2021 7:37 AM EDT MAURO removed plan for patient to go home today per provider * Allegra Aldana MD - 08/17/2021 6:55 AM EDT OTOLARYNGOLOGY - HEAD & NECK SURGERY DAILY PROGRESS NOTE Name: Suman Warner Age/Sex: 66 y.o. male Attending: Jose D Hoang MD Hospital Day: 3 2 Days Post-Op Patient ID/Reason for Admission Suman Warner is a 66 y.o. 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 In follow up, there was concern for partial flap necrosis and patient returned to OR 4/ for flap debridement and temporalis muscle flap coverage. Interval History No events overnight No complaints this AM Patient recovering well Vitals Last value 24hr Range Temperature: 36.4 ??C (97.6 ??F) Temp: [36.4 ??C (97.6 ??F)-36.9 ??C (98.4 ??F)] Heart Rate: 83 Heart Rate: [83] Blood Pressure: 134/84 BP: (129-157)/(68-92) Respiratory Rate: 18 Resp: [16-18] SpO2: 97 % SpO2: [93 %-97 %] Intake & Output Intake/Output Summary (Last 24 hours) at 08/17/2021 0655 Last data filed at 08/17/2021 0400 Gross per 24 hour Intake 1260 ml Output 1795 ml Net -535 ml Physical Exam General: NAD, non-ill appearing Face: HB 2 on LEFT with very slight weakness in smile Eyes: EOMI, conjunctiva healthy Ears: Hearing aid on RIGHT, pressure dressing in place on LEFT with scant serosanguinous discharge,taken down at bedside, flap site appears well perfused, xeroform dressing exchanged from ear canal Nose: Patent nares, grossly normal appearance Neck: Soft, trachea midline; MAURO drain with serosanguinous output to LCWS, incision c/d/i, no evidence of hematoma Chest: Non-labored breathing, regular rate Abdomen: Soft, non-tender Neuro: Alert & oriented, moving extremities x 4 Labs Recent Labs 08/16/21 0338 WBC 7.9 HGB 15.1 HCT 42.8 PLATELET 208 NA 135 K 4.3 CL 102 CO2 20* BUN 16 CREATININE 0.88 GLUCOSE 199 CALCIUM 8.8 MAGNESIUM 0.62* PHOS 2.9 Imaging None *Personally reviewed and evaluated ASSESSMENT & PLAN Suman Warner is a 66 y.o. male s/p revision of devitalized flap to left ear after subtotal temporal bone resection, parotidectomy, for SCCa of middle ear, 2 Days Post-Op. Patient is recovering well. Surgical/Head&Neck: MAURO drain to LCWS if not holding bulb suction Apply aquaphor to incisions Xeroform in LEFT EAC, Telfa, gauze pressure dressing should remain in place Neurologic: Pain controlled with acetaminophen/ibuprofen GREGORY, oxycodone PRN Cardiovascular: Statin Pulmonary: Oxygenation on RA Gastrointestinal: Zofran PRN; home PPI Genitourinary: IDALIA Musculoskeletal: IDALIA Fluids/Electrolytes: IDALIA Nutrition: Regular diet Infectious Disease: WBC WNL, no further labs needed, Clinda (08/15-08/21) culture directed Hematology: Hemoglobin stable, no further labs Endocrine: IDALIA Consults: None Lines: MAURO LEFT neck Prophylaxis: SQH, SCD, ambulation PRN, PPI Disposition: Floor status, Attempt Cardiopulmonary Resuscitation - Inpatient Discharge: Plan for d/c likely 08/17 vs 08/18; Needs VNA for wound care; Follow-up ENT TBD Allegra Aldana MD, PGY2 08/17/21 6:55 AM ENT Team Pager: [phone] * Caridad Sifuentes MD - 08/16/2021 10:46 AM EDT OTOLARYNGOLOGY - HEAD & NECK SURGERY DAILY PROGRESS NOTE Name: Suman Warner Age/Sex: 66 y.o. male Attending: Jose D Hoang MD Hospital Day: 2 1 Day Post-Op Patient ID/Reason for Admission Suman Warner is a 66 y.o. 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 In follow up, there was concern for partial flap necrosis and patient returned to OR 4/ for flap debridement and temporalis muscle flap coverage. Interval History No events overnight No complaints this AM Patient recovering well Vitals Last value 24hr Range Temperature: 36.7 ??C (98.1 ??F) Temp: [35.6 ??C (96.1 ??F)-36.8 ??C (98.2 ??F)] Heart Rate: 85 Heart Rate: [67-88] Blood Pressure: (!) 147/92 BP: (131-163)/(87-99) Respiratory Rate: 18 Resp: [10-18] SpO2: 95 % SpO2: [94 %-100 %] Intake & Output Intake/Output Summary (Last 24 hours) at 08/16/2021 1046 Last data filed at 08/16/2021 0700 Gross per 24 hour Intake 1520 ml Output 1530 ml Net -10 ml Physical Exam General: NAD, non-ill appearing Face: HB 2 on LEFT with very slight weakness in smile Eyes: EOMI, conjunctiva healthy Ears: Hearing aid on RIGHT, pressure dressing in place on LEFT with scant serosanguinous discharge,taken down at bedside, flap site appears well perfused, xeroform dressing exchanged from ear canal Nose: Patent nares, grossly normal appearance Neck: Soft, trachea midline; MAURO drain with serosanguinous output to LCWS, incision c/d/i, no evidence of hematoma Chest: Non-labored breathing, regular rate Abdomen: Soft, non-tender Neuro: Alert & oriented, moving extremities x 4 Labs Recent Labs 08/16/21 0338 WBC 7.9 HGB 15.1 HCT 42.8 PLATELET 208 NA 135 K 4.3 CL 102 CO2 20* BUN 16 CREATININE 0.88 GLUCOSE 199 CALCIUM 8.8 MAGNESIUM 0.62* PHOS 2.9 Imaging None *Personally reviewed and evaluated ASSESSMENT & PLAN Suman Warner is a 66 y.o. male s/p revision of devitalized flap to left ear after subtotal temporal bone resection, parotidectomy, for SCCa of middle ear, 1 Day Post-Op. Patient is recovering well. Surgical/Head&Neck: MAURO drain to LCWS if not holding bulb suction Apply aquaphor to incisions Xeroform in LEFT EAC, Telfa, gauze pressure dressing should remain in place Neurologic: Pain controlled with acetaminophen/ibuprofen GREGORY, oxycodone PRN Cardiovascular: Statin Pulmonary: Oxygenation on RA Gastrointestinal: Zofran PRN; home PPI Genitourinary: IDALIA Musculoskeletal: IDALIA Fluids/Electrolytes: IDALIA Nutrition: Regular diet Infectious Disease: WBC WNL, no further labs, Clinda (08/15-08/21) culture directed Hematology: Hemoglobin stable, no further labs Endocrine: IDALIA Consults: None Lines: MAURO LEFT neck Prophylaxis: SQH, SCD, ambulation PRN, PPI Disposition: Floor status, Attempt Cardiopulmonary Resuscitation - Inpatient Discharge: Plan for d/c likely 08/17; Needs VNA for wound care; Follow-up ENT TBD Caridad Sifuentes MD, PGY1 08/16/21 10:46 AM ENT Team Pager: [phone] * Alyce Monroe MD - 08/15/2021 10:20 PM EDT Post-Operative Progress Note Suman Warner 08/16/2021 Surgery/Issue: Procedure(s): FLAP, MYOCUTANEOUS OR FASCIOCUTANEOUS, HEAD & NECK W NAMED VASC PEDICLE DEBRIDEMENT SKIN, SUBCU, MUSCLE, HEAD/NECK (WRVU 2.7) Attending: Dr. Hoang Date of surgery: 08/15/2021 Subjective/Events: Pt was seen and examined. Pain well controlled. Denies nausea, vomiting, chest pain, shortness of breath, numbness/weakness. Objcetive: Temp: [35.6 ??C (96.1 ??F)-36.8 ??C (98.2 ??F)] Heart Rate: [68-88] Resp: [10-18] BP: (151-163)/(88-99) SpO2: [94 %-100 %] Heart Rate from SpO2: [68 bpm-91 bpm] Intake/Output Summary (Last 24 hours) at 08/16/2021 020 Last data filed at 08/15/[id number] Gross per 24 hour Intake 1400 ml Output 625 ml Net 775 ml Lab Results Component Value Date NA 138 06/29/2021 K 4.4 06/29/2021 CL 103 06/29/2021 CO2 24 06/29/2021 BUN 14 06/29/2021 CREATININE 1.01 06/29/2021 GLUCOSE 175 06/29/2021 CALCIUM 8.2 (L) 06/29/2021 Lab Results Component Value Date WBC 11.7 (H) 06/29/2021 HGB 14.0 06/29/2021 HCT 40.6 06/29/2021 MCV 92.3 06/29/2021 PLATELET 164 06/29/2021 Exam: General: patient sitting at edge of bed on initial encounter, comfortable and in no acute distress. Head: atraumatic, non cyanotic Pressure dressings in place over L mastoid. [place] visible on neck overlying L neck drain which was holding poor suction. Serosanguinous output. Cardiac: RRR no MRG Pulmonary: CTAB, no wheezes, rales, or rhonchi. Normal respiratory effort. Abdominal: soft, non-tender, non-distended Neuro: grossly intact, follows commands, moving all extremities Psych: normal affect, good insight/judgment Extremities: warm and well-perfused A/P: Suman Warner is a 66 y.o. male patient s/p flap debridement and locoregional soft tissue coverage in the OR. 1. Pain - controlled 2. Nausea - denies 3. Specific c/o - none 4. Volume status - Urine output adequate, will continue to monitor 5. DVT prophylaxis - SCDs, holding chemoprophylaxis 6. Diet: Regular diet 7. Requested Imaging: none 8. Disposition - floor status Alyce Monroe MD PGY1 General Surgery [facility] documented in this encounter H&P Notes * Caridad Sifuentes MD - 08/15/2021 1:01 PM EDT OTOLARYNGOLOGY - HEAD & NECK SURGERY INTERVAL H&P NOTE Name: Suman Warner Age/Sex: 66 y.o. male Attending: Jose D Hoang MD Hospital Day: 1 Day of Surgery Interval History Suman Warner is a 66 y.o. 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 In follow up, there was concern for partial flap necrosis and the plan was made for flap debridement and locoregional soft tissue coverage in the OR. Patient reports persistent drainage from left ear, but denies fevers, chills, SOB, chest pain. There have been no changes to his history. COVID Test pending. Patient denies symptoms of COVID, exposure to COVID or any known COVID contacts. Physical Exam Patient Vitals for the past 24 hrs: Temp Pulse Resp BP SpO2 O2 Device 08/15/21 1237 36.3 ??C (97.3 ??F) 67 18 (!) 159/96 99 % RA Gen: No acute distress, alert and answers questions appropriately ENT: Face symmetric and non-dysmorphic, HB1; swab in left ear remains in place CV: Regular rate Pulm: Unlabored breathing Abd: Abdomen soft and non-tender Ext: No peripheral edema ASSESSMENT & PLAN Plan for OR as scheduled. Consent signed, dated, placed in chart. Checklist done. Abx ordered. Ok to proceed with scheduled operation. Caridad Sifuentes MD, PGY1 08/15/21 1:02 PM ENT Team Pager: [phone] documented in this encounter Miscellaneous Notes * Care Management Discharge - Phyllis Baez RN - 08/18/2021 11:42 AM EDT CARE MANAGEMENT FINAL DISCHARGE NOTE Chart reviewed, care reviewed with primary team and at interdisciplinary rounds. Patient is medically ready for discharge to home . Needs for Transition of Care: Plan for discharge is: Home w/o Services Outpatient Agency/Support Group Needs: None Agency Referrals & Follow-up Care: No referrals, drain out Transportation: family or friend will provide... Raven Functional status prior to admission: Independent Home Environment: Others in the home: spouse. Current Living Arrangements: home/apartment/condo. Accessibility Concerns:two story home, no barriers. Current Functional Ability: Independent DME used at home: none DME Needed at Discharge: None Patient is insured through: Primary Insurance: MEDICARE Payor: MEDICARE / Plan: MEDICARE PART A & B / Product Type: *No Product type* / Secondary Insurance: [employer] MEDICARE SUPPLEMENT Prescription Coverage: Yes Preferred Pharmacy: [id number] - [place], [place] - [address] [facility] & [address] [address] [id number] - [place], [place] - [address] [facility] [address] [facility] [id number] This plan was formulated with input from patient, and team. All are in agreement with plan. I have verbally reviewed Medicare Discharge Rights with patient. Patient verbalizes understanding of right to appeal this discharge if feeling not medically ready. Offered a copy of this letter. Barbara Baez RN BSN CM Neurology [employer] ParerHoe Runner of Care Management Pager [phone] * Plan of Care - Tiny Alfaro RN - 08/17/2021 11:20 PM EDT OUTCOME EVALUATION NOTE: OUTCOME SUMMARY: AOx4, 09/14 strength x4 Per provider: Suman Warner is a 66 y.o. 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 In follow up, there was concern for partial flap necrosis and patient returned to OR 08/15 for flap debridement and temporalis muscle flap coverage. Per provider: Ears: Hearing aid on RIGHT, pressure dressing in place on LEFT with scant serosanguinous discharge,taken down at bedside, flap site appears well perfused, xeroform dressing exchanged from ear canal Per provider: Suman Warner is a 66 y.o. male s/p revision of devitalized flap to left ear after subtotal temporal bone resection, parotidectomy, for SCCa of middle ear, 2 Days Post-Op. Patient is recovering well. Surgical/Head&Neck: MAURO drain to LCWS if not holding bulb suction Apply aquaphor to incisions Xeroform in LEFT EAC, Telfa, gauze pressure dressing should remain in place Lines: MAURO LEFT neck Prophylaxis: SQH, SCD, ambulation PRN, PPI Disposition: Floor status, Attempt Cardiopulmonary Resuscitation - Inpatient Discharge: Plan for d/c likely 08/17 vs 08/18; Needs VNA for wound care; Follow-up ENT TBD PLAN MOVING FORWARD: D/c home when med ready INDIVIDUALIZED FALL PREVENTION INTERVENTIONS: Patient-specific fall risk factors per assessment: recent surgery, pain management Assistance: SBA Supervision: Arms reach Surveillance: Bed locked in low position, call sifuentes within reach, purposeful hourly rounding, clutter free environment, bed/chair alarm on Patient-specific fall prevention interventions for sensory deficits provided: Yes bed alarm CPG GOAL OUTCOME EVALUATION: Continue care plan as documented. * Plan of Care - Tiny Alfaro RN - 08/16/2021 9:25 PM EDT OUTCOME EVALUATION NOTE: OUTCOME SUMMARY: AOx4, 09/14 strength x4 Per provider: Suman Warner is a 66 y.o. 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 In follow up, there was concern for partial flap necrosis and patient returned to OR 08/15 for flap debridement and temporalis muscle flap coverage. Per provider Ears: Hearing aid on RIGHT, pressure dressing in place on LEFT with scant serosanguinous discharge,taken down at bedside, flap site appears well perfused, xeroform dressing exchanged from ear canal Per provider Suman Warner is a 66 y.o. male s/p revision of devitalized flap to left ear after subtotal temporal bone resection, parotidectomy, for SCCa of middle ear, 1 Day Post-Op. Patient is recovering well. Surgical/Head&Neck: MAURO drain to LCWS if not holding bulb suction Apply aquaphor to incisions Xeroform in LEFT EAC, Telfa, gauze pressure dressing should remain in place Neurologic: Pain controlled with acetaminophen/ibuprofen GREGORY, oxycodone PRN Cardiovascular: Statin Pulmonary: Oxygenation on RA Gastrointestinal: Zofran PRN; home PPI Genitourinary: IDALIA Musculoskeletal: IDALIA Fluids/Electrolytes: IDALIA Nutrition: Regular diet Infectious Disease: WBC WNL, no further labs, Clinda (08/15-08/21) culture directed Hematology: Hemoglobin stable, no further labs Endocrine: IDALIA Consults: None Lines: MAURO LEFT neck Prophylaxis: SQH, SCD, ambulation PRN, PPI Disposition: Floor status, Attempt Cardiopulmonary Resuscitation - Inpatient Discharge: Plan for d/c likely 08/17; Needs VNA for wound care; Follow-up ENT TBD PLAN MOVING FORWARD: Recovery from surgery, mauro drain, pain management INDIVIDUALIZED FALL PREVENTION INTERVENTIONS: Patient-specific fall risk factors per assessment: s/p surgery Assistance: 1assist Supervision: Hands on Surveillance: Bed locked in low position, call sifuentes within reach, purposeful hourly rounding, clutter free environment, bed/chair alarm on Patient-specific fall prevention interventions for sensory deficits provided: Yes bed alarm CPG GOAL OUTCOME EVALUATION: Continue care plan as documented. * Initial Assessments - Phyllis Baez RN - 08/16/2021 2:32 PM EDT Office of Care Management Initial Assessment Medical record reviewed. Plan of care and patient status discussed with direct care Registered Nurse and/or Care Team in multidisciplinary rounds. Reason for Hospitalization: needed L ear surgery, was having brownish gooey drainage Last COVID test: Lab Results Component Value Date [id number] Not Detected 08/15/2021 Present on Admission: ??? S/P debridement Hospitalizations Within the Past 30 Days: no previous admission in last 30 days Patient receiving hospital care under Inpatient status. Admission order reviewed. Primary Insurance on file: MEDICARE Secondary Insurance on file:@ Primary care provider on file: Ilya Mednia MD [phone] Pharmacy: [id number] [place], [place] - [address] [place] [address] [address] [facility] & [address] [phone] [facility] - [place], [place] - [address] [facility] [address] [facility] [address] Advance Care Planning: Attempt Cardiopulmonary Resuscitation - Inpatient Received -Advanced Directive: Yes, on file Who is your DPOA-HC?: Spouse Current Functional Ability: Independent Functional Status Prior to Admission: Independent Home Environment: Others in the home: spouse. Current Living Arrangements: home/apartment/condo. Accessibility Concerns:two story home, no barriers. Current DME: none [address] [facility] [address] Social & Family Supports: All names listed below confirmed with patient as current and correct Extended Emergency Contact Information Primary Emergency Contact: Raven Warner Mobile Relation: Spouse Current Care Provided by: self Transportation: no concerns Transportation Anticipated: family or friend will provide Assessment: Patient with no apparent RNCM/SW needs at this time. No housing, transportation, insurance, resources concerns identified at this time. Supports in place to achieve a safe post-hospital transition. No identified barriers to accessing necessary care and/or follow-up after discharge. Plan: Patient to d/c to home via when medically ready. Registered Nurse Fruit [employer] Vegetable Parer / Drainman will continue to follow patient???s progress and remain available if situation changes for coordination of care, psychosocial support and/or discharge planning. Pt is open to [facility] again if drain needs to staying in at discharge, otherwise is nothomebound. Office of Care Management Barbara Baez MVA REACTOR OPERATOR CM Neurology [employer] Parer[employer] Runner of Care Management Pager [phone] * Plan of Care - Tiny Alfaro RN - 08/16/2021 1:16 AM EDT OUTCOME EVALUATION NOTE: OUTCOME SUMMARY: Patient is AOx4, 5/5 strength x4, DSD to L ear, H/A in R ear, ABX continue, pain management per schedule, patient refuses prn pain management this shift Per provider: Suman Warner is a 66 y.o. 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 In follow up, there was concern for partial flap necrosis and the plan was made for flap debridement and locoregional soft tissue coverage in the OR. Patient reports persistent drainage from left ear, but denies fevers, chills, SOB, chest pain. There have been no changes to his history. COVID Test pending. Patient denies symptoms of COVID, exposure to COVID or any known COVID contacts. Per provider Gen: No acute distress, alert and answers questions appropriately ENT: Face symmetric and non-dysmorphic, HB1; swab in left ear remains in place CV: Regular rate Pulm: Unlabored breathing Abd: Abdomen soft and non-tender Ext: No peripheral edema PLAN MOVING FORWARD: Recovery from surgery, pain management, abx INDIVIDUALIZED FALL PREVENTION INTERVENTIONS: Patient-specific fall risk factors per assessment: s/p surgery, pain management Assistance: 1assist Arms reach or Hands on Surveillance: Bed locked in low position, call sifuentes within reach, purposeful hourly rounding, clutter free environment, bed/chair alarm on Patient-specific fall prevention interventions for sensory deficits provided: Yes bed alarm CPG GOAL OUTCOME EVALUATION: Continue care plan as documented. * Op Note - Jose D Hoang MD - 08/15/2021 3:21 PM EDT [facility] [place] Patient Name: Suman Warner : [id number] MR#: [id number] Case Date: 08/15/2021 Surgeon: Jose D Hoang MD Divakar, Prashanthi, MD Bell, Rebecca, MD Higgins, [place], [place] Diagnosis: Flap Necrosis Procedure: 1. Debridement of Left Submental Flap 2. Left Temporalis Muscle Pedicled Flap (6 cm x 6 cm) Anesthesia: General via Oral ETT Estimated Blood Loss: 75 cc HPI/Surgical Indications: Suman Warner is a 66 y.o. male who presents with [id number]??([place] Staging)??SCCa of the Left Middle Ear/Tympanic Membrane??in the Hypotympanum??(LVI-, PNI-, DEVYN-;??0??nodes) who underwent a Surgical Resection by Dr. Hernández & Dr. Hoang (06/28/2021) with a Left Subtotal Temporal Bone Resection in setting of Prior Canal Wall Down Mastoidectomy, Left Neck Dissection Level IB, IIA, & III, Left Superficial Inferior Lobe Parotidectomy and Left Submental Myocutaneous Flap (5 cm x 8 cm) on 06/28/2021. His post-operative course was initially uncomplicated but subsequent outpatient clinic visits revealed a initial delayed facial paralysis which improved with time and progressive slow devitalization to eventual declaration of flap non- viability and local infection of the submental myocutaneous flapreconstructing the mastoid cavity over the course of 6 weeks. Decision was made 08/10/2021 to postpone adjuvant radiation for operative exploration and revision of the flap with subsequent new flap coverage. Findings: Mastoid cavity reconstructed with prior submental flap notable for complete flap loss with devitalized tissue and malodorous purulent fluid. Healthy granulation tissue within deeper aspectsof the mastoid cavity which was not disturbed. Facial nerve monitoring was used during case. Excisional debridement of submental flap performed sharply with scissors to healthy bleeding granulation tissue in the mastoid cavity and non-excisional debridement with curettes to healthy muscle performedin the neck. Reconstruction of mastoid cavity after wound was irrigated copiously with Left Temporal Muscle Flap (based off the deep temporal artery which was dopplered prior to flap raise) of approxi mately 6 cm x 6 cm and rotated into the cavity. Procedure Description: Patient was brought to the operating room and identified. General anesthesia was induced. Patient was prepped and draped in the standard sterile fashion. Time out was performed. We started by marking the prior neck incision that was extending from prior neck dissection incision and submental incision up superiorly and posterior to the mastoid defect. We then opened this incision and initially did not note any purulent material. As we began opening the exposure anteriorly, we then noted malodorous purulent fluid and complete loss of the prior submental flap reconstructionwhich was reconstructing the canal wall down and subtotal temporal bone resection mastoid cavity. We performed excisional debridement of the submental flap with scissors sharply to healthy bleeding granulation tissue which we noted in the mastoid cavity. We then placed facial nerve monitoring electrodes to monitor for the facial nerve especially as we were doing debridement in the lateral mastoidcavity with nonexcisional fashion using curettes to healthy bleeding granulation tissue. We then used curettes to perform nonexcisional debridement of the sternocleidomastoid muscle and the tissues around the neck and defect to healthy bleeding muscle. At this point we irrigated the wound copiouslyand since there was a significant mastoid cavity defect that would need to be filled in order for the patient to get radiation and also over close the ear canal, we decided to plan a left temporalis muscle flap. We extended the incision up superiorly from the prior C shaped incision and then used the Doppler to identify the deep temporal artery and noted its location anteriorly which would be coming medial from the zygomatic arch. We then began using the Bovie electrocautery to make our cuts along the temporalis muscle and planned a 6 cm x 6 cm myelogenous flap noted to have good rotation of the flap into the mastoid cavity. Once we made the Bovie electrocautery cuts, we then elevated the temporalis muscle off of the periosteum of the cranium using the periosteal elevator while being sureto make sure that the anterior back cuts did not violate the dopplered temporal artery. Once we isolated enough of the muscle so that we could mobilize it without tension to cover the mastoid cavity, we then secured the flap in place with Vicryl sutures around the sternocleidomastoid muscle and then reapproximated the curvilinear C-shaped incision and the extended straight incision and closed thepatient's wound with Vicryl for the deep layers after placing a MAURO drain and securing it to the skin with a silk suture and then adrienne for the skin layer. Patient was turned back to anesthesia and extubated. All counts were correct. Patient was turned back to anesthesia. All counts were correct. Jayne Darby MD 08/16/2021 Attestation: Case Date: 08/15/2021 I was present and I participated during the entire procedure (does not need to include opening and closing). JOSE D HOANG MD 08/21/2021 documented in this encounter Plan of Treatment Upcoming Encounters Date Type Department Care Team (Late st Contact Info) Description 04/29/2024 11:00 AM EST Office Visit Radiation Oncology at [address] [phone] Tyrese Fitzgerald MD [facility] [place] [address] documented as of this encounter Procedures Procedure Name Priority Date/Time Associated Diagnosis Comments HEMOGRAM Routine 08/16/2021 3:38 AM EDT DIFFERENTIAL, AUTOMATED Routine 08/16/2021 3:38 AM EDT HC CBC,PLT & AUTO DIFF Routine 08/16/2021 3:38 AM EDT HC PHOSPHORUS, SERUM Routine 08/16/2021 3:38 AM EDT HC MAGNESIUM, SERUM Routine 08/16/2021 3 :38 AM EDT BASIC METABOLIC PANEL Routine 08/16/2021 3:38 AM EDT Debridement Muscle And Fascia 20 Sq Cm/< ([id number]) Yes 08/15/2021 2:23 PM EDT Encounter for post surgical wound check Cancer of temporal bone Muscle Myocutaneous/Fasciouc utaneous Flap Head&Neck W/Named Vasc Pedcl ([id number]) Yes 08/15/2021 2:23 PM EDT Encounter for post surgical wound check Cancer of temporal bone RAPID COVID-19 PCR ([facility]) Routine 08/15/2021 1:11 PM EDT FLAP, MYOCUTANEOUS OR FASCIOCUTANEOUS, HEAD & NECK W NAMED VASC PEDICLE Routine 08/15/2021 12:19 PM EDT Encounter for post surgical wound check Cancer of temporal bone DEBRIDEMENT SKIN, SUBCU, MUSCLE, HEAD/NECK Routine 08/15/2021 12:19 PM EDT Encounter for post surgical wound check Cancer of temporal bone documented in this encounter Results * (ABNORMAL) Differential, Automated (08/16/2021 3:38 AM EDT) Neutrophil % 87.3 % [facility] Neutrophil Absolute 6.86(H) 1.70 - 6.10 x10(3)/mc L [facility] Lymph % 8.1 % [facility] Lymphocytes Abs 0.6(L) 0.9 - 3.2 x10(3)/mc L [facility] Monocyte % 4.2 % [facility] Monocyte Abs 0.3 0.3 - 0.9 x10(3)/mc L [facility] Eos % 0.0 % [facility] LABORATORY Eosinophils Abs 0.0 0.0 - 0.4 x10(3)/[facility] LABORATORY Basophil % 0.1 % [facility] Baso Absolute 0.0 0.0 - 0.1 x10(3)/[facility] LABORATORY Immature Gran % 0.30 % [facility] Comment: Immature granulocytes(IG's)percentage and absolute count will include metamyelocytes, myelocytes, and promyelocytes. Blood smears from CBCs yielding IG's will be scanned manually for concordance. If this scan disagrees with the automated IG or if promyelocytes are noted, a manual differential will be performed. Immature Gran Absolute 0.02 0.00 - 0.04 x10(3)/[facility] LABORATORY Blood 08/16/2021 3:38 AM EDT 08/16/2021 3:53 AM EDT Narrative Resulting Agency Comment Spec In Lab Elsie TURNER HEMATOLOGY ORDER CHARI [facility] [address] * Hemogram (08/16/2021 3:38 AM EDT) White Blood Cell 7.9 4.0 - 9.5 x10(3)/[facility] LABORATORY Red Blood Cell 4.82 4.58 - 5.54 x10(6)/[facility] LABORATORY Hemoglobin 15.1 13.7 - 16.5 g/dL [facility] Hematocrit 42.8 40.5 - 48.5 % [facility] Mean Cell Volume 88.8 82.9 - 93.[address] [facility] Mean Cell Hemoglobin 31.3 27.5 - 32.[address] [facility] Mean Cell Hemoglobin Concentration 35.3 32.0 - 35.7 g/dL [facility] Platelet 208 145 - 357 x10(3)/[facility] LABORATORY RDW Standard Deviation 40.2 36.0 - 45.[address] [facility] RDW coefficient of variation 12.3 11.4 - 13.8 % [facility] Mean Platelet Volume 9.9 7.6 - 12.[address] [facility] NRBC% auto 0.0 % [facility] NRBC Absolute 0.000 0.000 - 0.000 x10(3)/[facility] LABORATORY Blood 08/16/2021 3:38 AM EDT 08/16/2021 3:53 AM EDT Narrative Resulting Agency Comment Spec In Lab Elsie TURNRE HEMATOLOGY ORDER CHARI Performing Organization Address [facility] de Phone Number [facility] [place] [address] * Phosphorus (08/16/2021 3:38 AM EDT) Phosphorus 2.9 2.5 - 4.5 mg/dL [facility] Blood 08/16/2021 3:38 AM EDT 08/16/2021 3:53 AM EDT Narrative Resulting Agency Comment Spec In Lab Jose D Hoang MD CHEMISTRY ORDERABL ES Performing Organization Address [facility] de Phone Number [facility] [place] [place] [address] * (ABNORMAL) Magnesium (08/16/2021 3:38 AM EDT) Magnesium 0.62(L) 0.69 - 1.07 mmol/L [facility] Blood 08/16/2021 3:38 AM EDT 08/16/2021 3:53 AM EDT Narrative Resulting Agency Comment Spec In Lab Jose D Hoang MD CHEMISTRY ORDERABL ES Performing Organization Address [facility] de Phone Number [facility] [place] [address] * (ABNORMAL) Basic Metabolic Panel (non-fasting) (08/16/2021 3:38 AM EDT) Glucose 199 65 - 199 mg/dL [facility] Comment:Diabetes: >=200 mg/d L plus symptoms Blood Urea Nitrogen 16 10 - 20 mg/dL [facility] Creatinine 0.88 0.80 - 1.50 mg/dL [facility] Sodium 135 135 - 145 mmol/L [facility] Potassium 4.3 3.5 - 5.0 mmol/L [facility] Comment: Please note: ??Patients with WBC >100,000 may have falsely elevated Potassium levels. ??For accurate Potassium quantification in these patients send serum separator tube (gold top) for subsequent determinations. ??Contact the Clinical Chemistry Laboratory if there are any questions. Chloride 102 98 - 107 mmol/L [facility] Carbon Dioxide 20(L) 22 - 31 mmol/L [facility] Anion Gap 13 5 - 15 mmol/L [facility] Calcium 8.8 8.5 - 10.5 mg/dL [facility] Est Glomerular Filtration Rate 90 >=60 mL/min/1. 73 m?? [facility] Comment: This patient? s estimated glomerular [...] Jose D Hoang MD CHEMISTRY ORDERABL ES [facility] [place] [address] * COVID-19 PCR (08/15/2021 1:11 PM EDT) SARS-CoV-2 RNA (Rapid) Not Detected Not Detected [facility] Comment: This result should be interpreted in combination with the clinical observations, patient history and epidemiological information. For testing of asymptomatic individuals, assay performance characteristics and clinical utility have not been evaluated. Testing for SARS-CoV-2 (Severe acute respiratory syndrome coronavirus 2, formerly known as 2019 novel coronavirus or 2019-nCoV) to aid in the diagnosis of COVID-19 is performed using the Simplexa COVID-19 Direct Assay by [employer] as authorized by the FDA issued Emergency Use Authorization (EUA). This assay is intended for In-vitro Diagnostic (IVD) use with nasopharyngeal swabs collected from individuals meeting the CDC criteria for testing. The assay is performed based on the instructions for use and additional guidance provided by the FDA. Testing is performed in the Microbiology Laboratory within the Department of Pathology and Laboratory Medicine at [facility], certified under the Clinical Laboratory Improvement Amendments of 1988 (CLIA), 42 U.S.C. section 263a, to perform high complexity tests. Assay performance has been verified according to clinical laboratory regulatory requirements. Test results are provided above. A result of Not Detected indicates that the viral RNA target is not present but does not preclude SARS-CoV-2 infection. False negative results may occur if a specimen is improperly collected, transported or handled; if amplification inhibitors are present; or if inadequate numbers of viral particles are present in the specimen. A result of Detected suggests a current or recent infection and the patient is presumed to be infected. Positive and negative predictive values for this test are highly dependent on disease prevalence. A result of Invalid indicates the inability to conclusively determine the presence or absence of SARS-CoV-2 RNA in the sample which can be due to a variety of factors. Recollection is recommended in the case of an invalid result. CDC COVID-19 criteria for testing on human specimens and clinical management guidance information are available at the CDC Coronavirus Disease 2019 (COVID-19) webpage under Information for Healthcare Professionals (https://www.cdc.gov/coronavirus/2019-ncov/hcp/index.html). 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, except mandible S/P debridement documented in this encounter Admitting Diagnoses Diagnosis S/P debridement documented in this encounter Administered Medications Inactive Administered Medications - up to 3 most recent administrations Medication Order MAR Action Action Date Dose Rate Site acetaminophen (Tylenol) tablet 1,000 mg 1,000 mg, Oral, ONCE, 1 dose, On Sat08/15/21 at 1300, Administer with SIP of H2O only., Day of Surgery (Day of Procedure), Routine Given 08/15/2021 12:57 PM EDT 1,000 mg acetaminophen (Tylenol) tablet 650 mg 650 mg, Oral, EVERY 4 HOURS SCHEDULED, First dose on Sat08/16/21 at 0000, Until Discontinued, Maximum dose of acetaminophen is 4000 mg from all sources in 24 hours. When ordered for pain, acetaminophen should be given even when other ordered pain medications are indicated. We do not order the liquid tylenol or ibuprofen because it has sorbitol and can contribute to diarrhea., Routine Given 08/18/2021 3:18 AM EDT 650 mg Given 08/17/2021 11:09 PM EDT 650 mg Given 08/17/2021 7:57 PM EDT 650 mg atorvastatin (Lipitor) tablet 20 mg 20 mg, Oral, EVERY EVENING, First dose (after last modification) on Sat08/15/21 at 2315, Until Discontinued, Routine Given 08/17/2021 4:47 PM EDT 20 mg Given 08/16/2021 4:45 PM EDT 20 mg Given 08/15/2021 10:52 PM EDT 20 mg clindamycin (Cleocin) 600 mg in dextrose 5% 50 mL infusion 600 mg, Intravenous, EVERY 8 HOURS, 15 doses, First dose on Sat08/15/21 at 1945, Last dose on Sat08/20/21 at 1400, Administer over 20 Minutes, Indication for (Active or Suspected): Skin/Skin Structure New Bag 08/18/2021 7:25 AM EDT 600 mg 150 mL/hr New Bag 08/17/2021 10:34 PM EDT 600 mg 150 mL/hr New Bag 08/17/2021 2:24 PM EDT 600 mg 150 mL/hr dorzolamide-timolol (PF) (Cosopt) 2-0.5 % ophthalmic solution 1 drop 1 drop, Both Eyes, DAILY, First dose on Sat08/16/21 at 1445, Until Discontinued, Routine Given 08/17/2021 8:39 AM E DT 1 drop Given 08/16/2021 4:47 PM EDT 1 drop dorzolamide-timolol (PF) (Cosopt) 2-0.5 % ophthalmic solution 1 drop 1 drop, Both Eyes, 2 TIMES DAILY, First dose (after last modification) on Sat08/18/21 at 0900, Until Discontinued, Routine Given 08/18/2021 8:50 AM EDT 1 drop FLUoxetine (PROzac) capsule 10 mg 10 mg, Oral, DAILY, First dose on Sat08/16/21 at 0900, Until Discontinued, Routine Given 08/18/2021 8:48 AM EDT 10 mg Given 08/17/2021 8:39 AM EDT 10 mg Given 08/16/2021 9:07 AM EDT 10 mg heparin (porcine) (5,000 units/1 mL) subcutaneous injection 5,000 Units 5,000 Units, Subcutaneous, EVERY 8 HOURS SCHEDULED, First dose on Sat08/16/21 at 1400, Until Discontinued, Routine Given 08/18/2021 7:25 AM EDT 5,000 Unit s Given 08/17/2021 10:33 PM EDT 5,000 Units Given 08/17/2021 2:24 PM EDT 5,000 Units HYDROmorphone (Dilaudid) (2 mg/mL) multi-dose injection solution 0.4 mg 0.4 mg, Intravenous, EVERY 10 MIN PRN, Starting on Sat08/15/21 at 1827, Until Sat08/15/21 at 2013, Pain, For Moderate to Severe Pain (6-10 out of 10), Hold for respiratory rate less than 10 per minute. Maximum dose 3 mg over one hour including administrations in the OR. If multiple pain medications are ordered, start with HYDROmorphone or morphine and use fentaNYL for breakthrough pain, PACU Recovery, Routine Given 08/15/2021 7:15 PM EDT 0.4 mg ibuprofen (Motrin) tablet 400 mg 400 mg, Oral, EVERY 4 HOURS SCHEDULED, First dose on Sat08/16/21 at 0000, Until Discontinued, Administer orally with milk or food to minimize GI irritation. Maximum dose of 3,200 mg from all sources in 24 hours. We do not order the liquid tylenol or ibuprofen because it has sorbitol and can contribute to diarrhea., Routine Given 08/16/2021 3:39 AM EDT 400 mg Given 08/16/2021 12:03 AM EDT 400 mg ibuprofen (Motrin) tablet 400 mg 400 mg, Oral, EVERY 6 HOURS SCHEDULED, First dose on Sat08/16/21 at 1200, Until Discontinued, Administer orally with milk or food to minimize GI irritation. Maximum dose of 3,200 mg from all sources in 24 hours. We do not order the liquid tylenol or ibuprofen because it has sorbitol and can contribute to diarrhea., Routine Given 08/18/2021 7:29 AM EDT 400 mg Given 08/17/2021 5:16 AM EDT 400 mg Given 08/16/2021 11:58 PM EDT 400 mg lactated ringers infusion 1,000 mL, at 100 mL/hr, Intravenous, CONTINUOUS, Starting on Sat08/15/21 at 1300, Until Sat08/15/21 at 2013, Day of Surgery (Day of Procedure) Restarted 08/15/2021 2:22 PM EDT New Bag 08/15/2021 12:54 PM EDT 1,000 mLs 100 mL/hr magnesium sulfate 2 g in sterile water 50 mL infusion 2 g, Intravenous, EVERY 2 HOURS, 2 doses, First dose on Sat08/16/21 at 0600, Last dose on Sat08/16/21 at 0800, Administer over 120 Minutes New Bag 08/16/2021 9:07 AM EDT 2 g 25 mL/hr New Bag 08/16/2021 6:55 AM EDT 2 g 25 mL/hr pantoprazole EC (Protonix) tablet 40 mg 40 mg, Oral, NIGHTLY, First dose on Sat08/15/21 at 2315, Until Discontinued, DO NOT CRUSH OR OPEN Given 08/17/2021 10:00 PM EDT 40 mg Given 08/16/2021 9:13 PM EDT 40 mg Given 08/15/2021 10:52 PM EDT 40 mg pantothenic Ac-Min Oil-Pet,Hyd (Aquaphor) 41 % ointment 1 each 1 each, Topical (Top), 2 TIMES DAILY, First dose on Sat08/15/21 at 2245, Until Discontinued, Clean incision with sterile saline or half strength hydrogen peroxide and apply aquaphor incision twice daily. Given 08/18/2021 9:00 AM EDT 1 each Given 08/17/2021 8:01 PM EDT 1 each Given 08/17/2021 8:39 AM EDT 1 each senna-docusate (Pericolace) 8.6-50 mg per tablet 2 tablet 2 tablet, Oral, 2 TIMES DAILY, First dose on Sat08/16/21 at 0900, Until Discontinued, Routine Given 08/17/2021 8:00 PM EDT 2 tablets Given 08/16/2021 9:13 PM EDT 2 tablets tamsulosin (Flomax) capsule 0.4 mg 0.4 mg, Oral, DAILY, First dose on Sat08/16/21 at 0900, Until Discontinued, DO NOT CRUSH OR OPEN, Routine Given 08/18/2021 8:48 AM EDT 0.4 mg Given 08/17/2021 8:39 AM EDT 0.4 mg Given 08/16/2021 9:07 AM EDT 0.4 mg documented in this encounter Active and Recently Administered Medications Times are shown in EDT. Scheduled Medication Order 08/16/2021 08/17/2021 08/18/2021 acetaminophen (Tylenol) tablet 650 mg 650 mg, Oral, EVERY 4 HOURS SCHEDULED, First dose on Sat08/16/21 at 0000, Until Discontinued, Maximum dose of acetaminophen is 4000 mg from all sources in 24 hours. When ordered for pain, acetaminophen should be given even when other ordered pain medications are indicated. We do not order the liquid tylenol or ibuprofen because it has sorbitol and can contribute to diarrhea., Routine 0003 (Given - Provider: Tiny Alfaro RN)0338 (Given - Provider: Tiny Alfaro RN)0905 (Not Given - Provider: Dorothy Cisneros RN - Reason: Patient/family refused)1246 (Given - Provider: Dorothy Cisneros RN)1645 (Given - Provider: Dorothy Cisneros RN)2112 (Given - Provider: Tiny Alfaro RN)2358 (Given - Provider: Tiny Alfaro RN) 0329 (Given - Provider: Tiny Alfaro RN)0839 (Not Given - Provider: Dorothy Cisneros RN - Reason: Patient/family refused)1235 (Given - Provider: Dorothy Cisneros RN)1647 (Given - Provider: Dorothy Cisneros RN)1957 (Given - Provider: Tiny Alfaro RN)2309 (Given - Provider: Tiny Alfaro RN) 0318 (Given - Provider: Tiny Alfaro RN)0800 (Not Given - Provider: Yaquelin Pyle RN - Reason: Patient/family refused)1200 (Due) atorvastatin (Lipitor) tablet 20 mg 20 mg, Oral, EVERY EVENING, First dose (after last modification) on Sat08/15/21 at 2315, Until Discontinued, Routine 1645 (Given - Provider: Dorothy Cisneros RN) 1647 (Given - Provider: Dorothy Cisneros RN) clindamycin (Cleocin) 600 mg in dextrose 5% 50 mL infusion 600 mg, Intravenous, EVERY 8 HOURS, 15 doses, First dose on Sat08/15/21 at 1945, Last dose on Sat08/20/21 at 1400, Administer over 20 Minutes, Indication for (Active or Suspected): Skin/Skin Structure 0509 (New Bag - Provider: Tiny Alfaro RN)0529 (Stopped - Provider: Tiny Alfaro RN)1454 (New Bag - Provider: Dorothy Cisneros RN)1514 (Stopped - Provider: Dorothy Cisneros RN)2113 (New Bag - Provider: Tiny Alfaro RN)2133 (Stopped - Provider: Tiny Alfaro RN) 0516 (New Bag - Provider: Tiny Alfaro RN)0536 (Stopped - Provider: Tiny Alfaro RN)1424 (New Bag - Provider: Dorothy Cisneros RN)1444 (Stopped - Provider: Dorothy Cisneros RN)2234 (New Bag - Provider: Tiny Alfaro RN)2254 (Stopped - Provider: Tiny Alfaro RN) 0725 (New Bag - Provider: Tiny Alfaro RN)0745 (Stopped - Provider: Yaquelin Pyle RN) dorzolamide-timolol (PF) (Cosopt) 2-0.5 % ophthalmic solution 1 drop (CANCELED) 1 drop, Both Eyes, DAILY, First dose on Sat08/16/21 at 1445, Until Discontinued, Routine 1647 (Given - Provider: Dorothy Cisneros RN) 0839 (Given - Provider: Dorothy Cisneros RN) dorzolamide-timolol (PF) (Cosopt) 2-0.5 % ophthalmic solution 1 drop 1 drop, Both Eyes, 2 TIMES DAILY, First dose (after last modification) on Sat08/18/21 at 0900, Until Discontinued, Routine 0850 (Given - Provid er: Yaquelin Pyle RN) FLUoxetine (PROzac) capsule 10 mg 10 mg, Oral, DAILY, First dose on Sat08/16/21 at 0900, Until Discontinued, Routine 0907 (Given - Provider: Dorothy Cisneros RN) 0839 (Given - Provider: Dorothy Cisneros RN) 0848 (Given - Provider: Yaquelin Pyle RN) heparin (porcine) (5,000 units/1 mL) subcutaneous injection 5,000 Units 5,000 Units, Subcutaneous, EVERY 8 HOURS SCHEDULED, First dose on Sat08/16/21 at 1400, Until Discontinued, Routine 1454 (Given - Provider: Dorothy Cisneros RN)2113 (Given - Provider: Tiny Alfaro RN) 0515 (Given - Provider: Tiny Alfaro RN)1424 (Given - Provider: Dorothy Cisneros RN)2233 (Given - Provider: Tiny Alfaro RN) 0725 (Given - Provider: Tiny Alfaro RN) ibuprofen (Motrin) tablet 400 mg (CANCELED) 400 mg, Oral, EVERY 4 HOURS SCHEDULED, First dose on Sat08/16/21 at 0000, Until Discontinued, Administer orally with milk or food to minimize GI irritation. Maximum dose of 3,200 mg from all sources in 24 hours. We do not order the liquid tylenol or ibuprofen because it has sorbitol and can contribute to diarrhea., Routine 0003 (Given - Provider: Tiny Alfaro RN)0339 (Given - Provider: Tiny Alfaro RN) ibuprofen (Motrin) tablet 400 mg 400 mg, Oral, EVERY 6 HOURS SCHEDULED, First dose on Sat08/16/21 at 1200, Until Discontinued, Administer orally with milk or food to minimize GI irritation. Maximum dose of 3,200 mg from all sources in 24 hours. We do not order the liquid tylenol or ibuprofen because it has sorbitol and can contribute to diarrhea., Routine 1320 (Not Given - Provider: Dorothy Cisneros RN - Reason: Patient/family refused)1752 (Not Given - Provider: Dorothy Cisneros RN - Reason: Patient/family refused)2358 (Given - Provider: Tiny Alfaro RN) 0516 (Given - Provider: Tiny Alfaro RN)1236 (Not Given - Provider: Dorothy Cisneros RN - Reason: Patient/family refused)1800 (Not Given - Provider: Dorothy Cisneros RN - Reason: Patient/family refused) 0000 (Not Given - Provider: Tiny Alfaro RN - Reason: Patient/family refused)0729 (Given - Provider: Tiny Alfaro RN)1200 (Due) magnesium sulfate 2 g in sterile water 50 mL infusion (COMPLETED) 2 g, Intravenous, EVERY 2 HOURS, 2 doses, First dose on Sat08/16/21 at 0600, Last dose on Sat08/16/21 at 0800, Administer over 120 Minutes 0655 (New Bag - Provider: Tiny Alfaro RN)0759 (Stopped - Provider: Dorothy Cisneros RN)0907 (New Bag - Provider: Dorothy Cisneros RN)110 (Stopped - Provider: Dorothy Cisneros RN) pantoprazole EC (Protonix) tablet 40 mg 40 mg, Oral, NIGHTLY, First dose on Sat08/15/21 at 2315, Until Discontinued, DO NOT CRUSH OR OPEN 2112 (Given - Provider: Tiny Alfaro RN) 2199 (Given - Provider: Tiny Alfaro RN) pantothenic Ac-Min Oil-Pet,Hyd (Aquaphor) 41 % ointment 1 each 1 each, Topical (Top), 2 TIMES DAILY, First dose on Sat08/15/21 at 2245, Until Discontinued, Clean incision with sterile saline or half strength hydrogen peroxide and apply aquaphor incision twice daily. 1021 (Not Given - Provider: Dorothy Cisnerso RN - Reason: Medication not available)2118 (Given - Provider: Tiny Alfaro RN) 838 (Given - Provider: Dorothy Cisneros RN)2000 (Given - Provider: Tiny Alfaro RN) 899 (Given - Provider: Yaquelin Pyle, EUSEBIO) senna-docusate (Pericolace) 8.6-50 mg per tablet 2 tablet 2 tablet, Oral, 2 TIMES DAILY, First dose on Sat08/16/21 at 0900, Until Discontinued, Routine 907 (Not Given - Provider: Dorothy Cisneros RN - Reason: Patient/family refused)2112 (Given - Provider: Tiny Alfaro RN) 840 (Not Given - Provider: Dorothy Cisneros RN - Reason: Patient/family refused)1999 (Given - Provider: Tiny Alfaro RN) 899 (Not Given - Provider: Yaquelin Pyle RN - Reason: Contraindicated - Comment: pt had BM) sennosides (Senokot) (1.76 mg/mL) oral liquid 17.6 mg 17.6 mg, Oral, 2 TIMES DAILY, First dose on Sat08/16/21 at 0900, Until Discontinued, Routine 09 (Not Given - Provider: Dorothy Cisneros RN - Reason: Patient/family refused)2099 (Not Given - Provider: Tiny Alfaro RN - Reason: Patient/family refused) 08 (Not Given - Provider: Dorothy Cisneros RN - Reason: Patient/family refused)2100 (Hold - Provider: Tiny Alfaro RN - Reason: Patient/family refused) 0900 (Not Given - Provider: Yaquelin Pyle RN - Reason: Contraindicated - Comment: pt had BM) tamsulosin (Flomax) capsule 0.4 mg 0.4 mg, Oral, DAILY, First dose on Sat08/16/21 at 0900, Until Discontinued, DO NOT CRUSH OR OPEN, Routine 0907 (Given - Provider: Dorothy Cisneros RN) 0839 (Given - Provider: Dorothy Cisneros RN) 0848 (Given - Provider: Yaquelin Pyle, EUSEBIO) PRN Medication Order 08/16/2021 08/17/2021 08/18/2021 ipratropium-albuteroL (Duoneb) 0.5 mg-3 mg(2.5 mg base)/3 mL nebulizer solution 3 mL 3 mL, Nebulization, EVERY 4 HOURS PRN, Starting on Sat08/15/21 at 1923, Until Sat08/18/21 at 1440, Wheezing, Routine ondansetron (pf) (Zofran) (2 mg/mL) injection 4 mg 4 mg, Intravenous, EVERY 8 HOURS PRN, Starting on Sat08/15/21 at 2151, Until Sat08/18/21 at 1440, Nausea, Vomiting oxyCODONE (Roxicodone) tablet 5-10 mg 5-10 mg, Oral, EVERY 3 HOURS PRN, Starting on Sat08/15/21 at 2151, Until Sat08/18/21 at 1440, Pain, Give 5 mg for pain 1-5; Give 10 mg for pain 6-10, Routine polyethylene glycoL (Miralax) packet 17 g 17 g, Oral, DAILY PRN, Starting on Sat08/15/21 at 2151, Until Sat08/18/21 at 1440, Constipation, Give scheduled bowel meds, then start with Miralax, and then bisacodyl suppository in order to achieve one bowel movement every 48 hours without straining., Routine documented in this encounter Care Teams Laborer Cheesemaking Relationship 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
--- OUTSIDE RECORDS SUMMARY | 2024-02-10 15:16 | XMS_ITS | Encounter Summary ---
Author Organization [facility] Address [facility] Alyssia [place] [address] Care Team Providers Care Accounts Supervisor Name Role Phone Ilya Medina MD Primary Care Provider [phone] Encounter Details Date Type Department Care Team (Late st Contact Info) Description 09/01/2021 3:00 PM EDT Office [place] [address] Jayne Darby MD [facility] [place] [address] Cancer of temporal bone Social History Tobacco [...] as of this encounter Progress Notes * Jayne Darby MD - 09/01/2021 3:00 PM EDT OTOLARYNGOLOGY - HEAD & NECK SURGERY OUTPATIENT CLINIC FOLLOW-UP NOTE Name: Suman Warner Age/Sex: 66 y.o. male ENT Attending: Dr. Hoang Patient ID Suman Warner is a 66 y.o. 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 Replacing the dressing. Facial nerve weakness has basically resolved. Minimal drainage from the site. Physical Exam General: NAD, non-ill appearing Face: Very mild to almost no facial weakness of the LEFT face, improved from pre-operative exam, HBI Eyes: EOMI, conjunctiva healthy Ears: Normal right auricle, LEFT auricle meatal opening with healthy bleeding temporalis flap. Silver nitrate applied to the granulation tissue, opening is healing and re-epithelializing slowly. Nose: Patent nares, grossly normal appearance Oral Cavity: Mucosa is pink Neck: Neck incision connected to temporal region healthy, healing well. Chest: Unlabored breathing Neuro: Alert & oriented, moving extremities x 4 ASSESSMENT & RECOMMENDATIONS Suman Warner is a 66 y.o. male He is doing well after surgery and his flap is healthy and granulating well. He has no signs of infection and very minimal swelling. His facial weakness has basically resolved. Discussed that patient is cleared for radiation. At least 20 minutes of this visit was spent counseling patient on adjuvant treatment plans and post-operative recovery process. Discussed patient and staffed with Dr. Jose D Hoang. Recommendations: 1. Patient is cleared for Adjuvant Radiation. 2. Follow-up in 2-3 weeks to ensure flap is continuing to heal well and epithelialize. 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
--- OUTSIDE RECORDS SUMMARY | 2024-02-10 15:16 | XMS_ITS | Encounter Summary ---
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 He said he has the [employer] application and will be working on it shortly and will send it to me. He has received the gas card from [employer]. Cuca Boo documented in this encounter Plan of Treatment Upcoming Encounters Date Type Department Care Team (Late st Contact Info) Description 04/29/2024 11:00 AM EST Office Visit Radiation Oncology at [address] [phone] Tyrese Fitzgerald MD [facility] [place] [address] documented as of this encounter Visit Diagnoses Not on filedocumented in this encounter Care Teams Asbestos Siding Mechanic Relationship 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
--- OUTSIDE RECORDS SUMMARY | 2024-02-10 15:16 | XMS_ITS | Encounter Summary ---
Author Organization [facility] Address [facility] [place] [address] Care Team Providers Care Network Security Consultant Name Role Phone Ilya Medina MD Primary Care Provider [phone] Reason for Visit * Reason Comments Follow-up Still having drainag e. No pain. Encounter Details Date Type Department Care Team (Late st Contact Info) Description 07/27/2021 4:00 PM EDT Office Visit [place] [address] Jose D Tejada MD [facility] [place]ARY[place] [address] Cancer of temporal bone; Postoperative examination Social History Tobacco Use Types Packs/Day Years [...] - Inhaled Oxygen Concentration - - Weight 113.1 kg (249 lb 4.8 oz) 07/27/2021 3:59 PM EDT Height 177.8 cm (5' 10) 07/27/2021 3:59 PM EDT Body Mass Index 35.77 07/27/2021 3:59 PM EDT documented in this encounter Progress Notes * Jose D Tejada MD - 07/27/2021 4:00 PM EDT [facility] OTOLARYNGOLOGY BRIEF FOLLOW UP NOTE Suman Warner is a 66 y.o. male followed for: Suman Warner is a 66 y.o. 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 Has been doing the wet to dry On exam has some fluid drainage but significantly improved. Mild debridement of the fat demonstrates what appears to be healthy fat but there is no granulation tissue as of yet. Overall his exam is improved with no clear evidence of flap failure but what appears to be arrested healing. ASSESSMENT/RECOMMENDATIONS Improved exam, still not completely healed. Continue wet to dry. Follow up next week. Likely proceed with simulation and radiation after next week given his healing status. I appreciate the opportunity to be involved in Mr. Warner's care. 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
--- OUTSIDE RECORDS SUMMARY | 2024-02-10 15:16 | XMS_ITS | Encounter Summary ---
Author Organization [facility] [place] [address] Care Team Providers Care Aquatic Centre Manager Name Role Phone Ilya Medina MD Primary Care Provider [phone] Encounter Details Date Type Department Care Team (Late st Contact Info) Description 08/03/2021 Telephone Hematology [place] [address] Cuca Boo Social History Tobacco [...] No 07/19/2021 Housing Stability Vital Sign Answer Awrren e Recorded In the last 12 months, [...] * Telephone Encounter - Cuca Boo - 08/03/2021 11:20 AM EDT Community [facility] Forestry Consultant lvm for Suman to return my call, I am checking in. Cuca Boo documented in this encounter Plan of Treatment Upcoming Encounters Date Type Department Care Team (Late st Contact Info) Description 04/29/2024 11:00 AM EST Office Visit Radiation Oncology at [address] [phone] Tyrese Fitzgerald MD [facility] [place] [address] documented as of this encounter Visit Diagnoses Not on filedocumented in this encounter Care Teams Aquatic Centre Manager Relationship 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
--- OUTSIDE RECORDS SUMMARY | 2024-02-10 15:16 | XMS_ITS | Encounter Summary ---
Author Organization [facility] [address] Care Team Providers Care Soil Conservation Technician Name Role Phone Ilya Medina MD Primary Care Provider [phone] Encounter Details Date Type Department Care Team (Late st Contact Info) Description 08/03/2021 Telephone H[place]ology [place] [phone] Cuca Boo Social History Tobacco [...] Telephone Encounter - Cuca Boo - 08/03/2021 11:29 AM EDT Opened in error. documented in this encounter Plan of Treatment Upcoming Encounters Date Type Department Care Team (Late st Contact Info) Description 04/29/2024 11:00 AM EST Office Visit Radiation Oncology at [address] [phone] Tyrese Fitzgerald MD [facility] [place] [address] documented as of this encounter Visit Diagnoses Not on filedocumented in this encounter Care Teams Soil Conservation Technician Relationship 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
--- OUTSIDE RECORDS SUMMARY | 2024-02-10 15:16 | XMS_ITS | Encounter Summary ---
Author Organization [facility] Address [facility] Alyss[place] [address] Care Team Providers Care Half Backer Name Role Phone Ilya Medina MD Primary Care Provider [phone] Encounter Details Date Type Department Care Team (Late st Contact Info) Description 08/10/2021 3:40 PM EDT Office [place] [address] Jose D Tejada MD [facility] [place] [address] Encounter for post surgical wound check; Cancer of temporal bone Social History Tobacco [...] place to sleep or slept in a longterm (including now)? No 07/19/2021 Sex and Gender [...] - - Weight 113.4 kg (250 lb) 08/10/2021 3:23 PM EDT Height 177.8 cm (5' 10) 08/10/2021 3:23 PM EDT Body Mass Index 35.87 08/10/2021 3:23 PM EDT documented in this encounter Progress Notes * Jayne Darby MD - 08/10/2021 3:40 PM EDT OTOLARYNGOLOGY - HEAD & NECK SURGERY OUTPATIENT CLINIC FOLLOW-UP NOTE Name: Suman Warner Age/Sex: 66 y.o. male ENT Attending: Dr. Tejada Patient ID Suman Warner is a 66 y.o. 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 Hernández & Dr. Tejada (06/28/2021) 1. Left Subtotal Temporal Bone Resection in setting of Prior Canal Wall Down Mastoidectomy 2. Left Neck Dissection Level IB, IIA, & III 3. Left Superficial Inferior Lobe Parotidectomy 4. Left Submental Myocutaneous Flap (5 cm x 8 cm) Adjuvant Radiation (Pending) Interval History Reports more foul drainage from the LEFT ear meatal opening. No fevers, chills, or pain. Patient also reports whoosing sounds and crackling sounds in his RIGHT ear which is refractory to standard valsalva maneuver to ventilate his middle ear. Physical Exam General: NAD, non-ill appearing Face: Facial weakness of the LEFT face, less blinking of the LEFT eye, HB III Eyes: EOMI, conjunctiva healthy Ears: Normal right auricle, LEFT auricle meatal opening with necrotic flap with obvious expression of purulent material and old blood products with massage of post-auricular region. Cultures sent Nose: Patent nares, grossly normal appearance Oral Cavity: Mucosa is pink Neck: Neck incision connected to the post-auricular incision well healed but notable for swelling in Chest: Unlabored breathing Neuro: Alert & oriented, moving extremities x 4 ASSESSMENT & RECOMMENDATIONS Suman Warner is a 66 y.o. male Unfortunately the flap which had not clearly declared in the prior appointments with concern for partial necrosis and loss in a slow fashion now has clearly demonstrated non-viability. Etiology appears likely that patient developed a hematoma which was deep and possibly compressed facial nerve (which is maybe why patient had swelling and facial nerve weakness initially) and then followed by flap microvascular circulation loss and followed by flap non-viability and eventual now infection. Patient has not had any local signs of pain or any systemic signs which have made the diagnosis difficult to ascertain initially. We discussed that he will need to have a operative exploration in order to evaluate his reconstruction and possibly bring in additional coverage in form of likely a temporalis flap. Plan will be to book surgery next week so that patient can be expedited in order to get to adjuvant radiation as soonas possible. At least 30 minutes of this visit was spent counseling patient on adjuvant treatment plans and post-operative recovery process. Recommendations: 1. Schedule for Surgery for Incision & Drainage, Debridement, & Flap Coverage - will plan for 08/15/2021 2. Prescribed 10 days of Augmentin for active infection Jayne Darby MD, PGY-5 08/10/21 6:19 PM * Jose D Tejada MD - 08/10/2021 3:40 PM EDT [facility] [place] Attending Note Patient was seen and examined with the above resident. I agree with the history, exam findings, andrecommendations. Summary More necrosis of flap noted We are going to take him back to the OR for debridement and temporalis flap coverage I appreciate the opportunity to be involved in Mr. Warner's care. JOSE D TEJADA MD 08/14/2021 documented in this encounter Plan of Treatment Upcoming Encounters Date Type Department Care Team (Late st Contact Info) Description 04/29/2024 11:00 AM EST Office Visit Radiation Oncology at [address] [phone] Tyrese Fitzgerald MD [facility] [place] [address] documented as of this encounter Procedures Procedure Name Priority Date/Time Associated Diagnosis Comments ANAEROBIC CULTURE Routine 08/10/2021 5:4 6 PM EDT Encounter for post surgical wound check HC WOUND/ABSCESS CX Routine 08/10/2021 5 :46 PM EDT Encounter for post surgical wound check ABSCESS/WOUND ASPIRATE CULTURE Routine 08/10/2021 5:46 PM EDT Encounter for post surgical wound check documented in this encounter Results * (ABNORMAL) Anaerobic Culture (08/10/2021 5:46 PM EDT) Anaerobic Culture Many Prevotella melaninogenica Rare Bacteroides fragilis Group (A) [facility] Organism Prevotella melaninogenica(A) [facility] Organism Bacteroides fragilis Group(A) [facility] Fluid NECK STRUCTURE / Unknown 08/10/2021 5:46 PM EDT 08/10/2021 5:46 PM EDT Narrative Resulting Agency Comment Spec In Lab Jose D Tejada MD MICROBIOLOGY - GEN ERAL ORDERABLES Performing Organization Address [facility] Co de Phone Number [facility] [place] [address] * (ABNORMAL) Abscess/Wound Aspirate Culture (08/10/2021 5:46 PM EDT) Abscess/Wound Aspirate Culture Rare Staphylococcus aureus Many mixed bacterial morphotypes suggestive of normal cutaneous smith (A) [facility] Gram Stain Many Neutrophils seen Many Gram Positive Cocci in pairs Many Gram Positive Cocci in clusters (A) [facility] Organism Staphylococcus aureus(A) [facility] Fluid NECK STRUCTURE / Unknown 08/10/2021 5:46 PM EDT 08/10/2021 5:46 PM EDT Narrative Resulting Agency Comment Spec In Lab Organism Antibiotic Method Susceptibility Staphylococcus aureus Clindamycin VITEK 2 METHOD Sensitive Staphylococcus aureus Erythromycin VITEK 2 METHOD Sensitive Staphylococcus aureus Gentamicin VITEK 2 METHOD Sensitive Comment:Gentamicin i s not appropriate for [place]-therapy. Staphylococcus aureus Oxacillin VITEK 2 METHOD Sensitive Comment: Oxacillin (methicillin) susceptibility is a surrogate for the oral and parenteral cephalosporins, beta-lactam combination agents (amoxicillin-clavulanate, ampicillin-sulbactam and piperacillin-tazobactam) and carbapenem agents. ??It is NOT a surrogate for penicillin, ampicillin or piperacillin susceptibility. 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
--- OUTSIDE RECORDS SUMMARY | 2024-02-10 15:16 | XMS_ITS | Encounter Summary ---
Author Organization [facility] Address [facility] [place] [address] Care Team Providers Care Monitor Technician Name Role Phone Ilya Medina MD Primary Care Provider [phone] Encounter Details Date Type Department Care Team (Late st Contact Info) Description 08/01/2021 12:30 PM EDT Office Visit Radiation Oncology at [address] [phone] Tyrese Fitzgerald MD [facility] [place] [address] Malignant neoplasm of bones of skull and [...] AM EST documented as of this encounter Patient Instructions * Patient Instructions* Negin Damon RN - 08/01/2021 12:40 PM EDT General instructions for Radiation therapy Radiation Oncology Team Radiation Oncologist -The doctor who will direct all aspects of your radiation treatments Nurse Practitioner - They assist your doctor in treating your side effects and with follow up appointments. Registered Nurse - They shani you in learining about you radaiton treatments, , and things you can do to help manage the side effects. Soaker Soda Worker - They take the doctors radiation prescription and customize it into doses (or days of treatments) specific for you. Physicist - They make sure all the machines are operating correctly and double check calculations for your treatment. Radiation Technologists - They operate the machines which deliver your radiation. You see them daily and they schedule your treatments. Simulation CT/ Planning Session- Your first step after deciding to start radiation treatments is done on a special CT scanner in radiation oncolcgy. The images obtained are used to plan your treatments. This may be scheduled the same day you meet your doctor or in a separate visit. This usually takes between 30 minutes to one hour. You may need an IV for contrast. If so our nurse will let you know that day along with any other special instructions. During this visit we may klyah Your skin with a tiny ???tattoos?? , take pictures or make special molds or masks to help us place you in the exact treatment position every day. After this session it takes up to two weeks for your plan to be developed and checked by your doctor, the dosimetrists and the physicist. Skin Care - Your nurse/physician will provide you with the necessary creams and supplies as you need them during your treatments. Please make sure to keep the treatment area clean and dry. Be sure to notice if your clothing rubs or digs into the treatment area and try to wear clothes which are less abrasive, like cotton or loose fitting. Do not use harsh soaps, ointments, deodorants or tapes in the treatment area unless directed by your nurse or doctor. Keep the treatment area out of the sun during treatments. General precautions- DO NOT USE heating pads, hot water bottles, hot poultices, heat lamps, heat in any form, or ice packs to the area of your body being treated. It is common to start feeling fatigue after a few weeks of being treated. You can help minimize this by getting regular exercise or walking and getting plenty of rest. In general a well balanced diet is recommended. The bucket pusher and nurse will inform you of any special diet requirements. Avoid shaving the treatment area with a razor. If you must shave use an electric razor. Our Contact numbers Section of Radiation Oncology Our normal business hours are: Saturday - Saturday: 8:00 AM to 5:00 PM [facility]: [facility]: If you have questions about your radiation appointments please ask to speak to one of our secretarystaff. If you have questions for a nurse/doctor about radiation treatments, radiation side effects or you are not feeling well it is best to call early in the day. This allows a nurse to return your call by5 PM the same day. If you call after 4 PM, a nurse will return your call by 5 PM the following day unless it is emergent. If you experience any of the following you need to seek emergency care immediately by calling 911 1. Sudden and unexpected breathing difficulty without any exertion 2. Sudden onset of chest pain 3. Sudden onset of severe pain or uncontrolled pain 4. Sudden onset of severe weakness and/or unable to ambulate 5. Sudden new onset of a seizure 6. Fall resulting in injury A Radiation Oncology doctor is friction welding machine operator after our normal hours and on weekends. To call for urgent medical issues from radiation treatments that can not wait until normal businesshours: Call for either location and have the radial drill press operator for plastic page the Radiation Oncologist friction welding machine operator. documented in this encounter Progress Notes * Negin Damon RN - 08/01/2021 12:30 PM EDT Section of Radiation Oncology Contrast Information Safety Questions 1. Has the patient ever had an x-ray study before which involved injection of a contrast agent or x-ray dye? Yes If yes, did the patient have any reaction to the injection? no If yes, please describe the reaction: n/a 2. Is the patient allergic to any [...] yes Lab Results Component Value Date CREATININE 1.06/29/2021 If no, when will it be drawn? Done 08/01/21 - creat 1.2, eGFR >=60 A creatinine less than or equal to [...] If yes, when was last dose taken? 9. If patient is on any of the medications in question #10, consult with the ordering provider if the patient needs to stop the medication and if they will require further lab studies. 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 The consent was reviewed with the physician and signed by both the patient and physician. Anintravenous line was placed in anticipation of contrast administration. The patient was then brought to the simulation room and a time-out was performed per protocol. he was then placed on the simulation table and a custom cushion was constructed for his neck. Bolus was placed under physician supervision. A custom aquaplast mask was then created. The simulation CT scan was performed with contrast, images were reviewed and approved by the physician, and tattoos were created by the therapy staff as indicated. The patient tolerated the procedure without difficulty, and was given a time to returnto start radiotherapy. documented in this encounter Plan of Treatment Upcoming Encounters Date Type Department Care Team (Late st Contact Info) Description 04/29/2024 11:00 AM EST Office Visit Radiation Oncology at [address] [phone] Tyrese Fitzgerald MD [facility] [place] [address] documented as of this encounter Visit Diagnoses Diagnosis 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, except mandible documented in this encounter Care Teams Monitor Technician Relationship 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
--- OUTSIDE RECORDS SUMMARY | 2024-02-10 15:16 | XMS_ITS | Encounter Summary ---
Author Organization [facility] Address [facility] Alyssia [place] [address] Care Team Providers Care Wafer Machine Operator Name Role Phone Ilya Medina MD Primary Care Provider [phone] Reason for Visit * Reason Comments Follow-up Still having drainag e but not malodorous. Denies Otalgia. Encounter Details Date Type Department Care Team (Latest Contact Info) Description 07/27/2021 4:00 PM EDT Office [place] [address] Apolinar Hernández MD [facility] [place] [address] Cancer of temporal bone; Status post neck dissection; Facial paralysis; Mixed conductive and sensorineural hearing loss of both ears Social History Tobacco Use Types Packs/Day Years [...] as of this encounter Progress Notes * Apolinar Hernández MD - 07/27/2021 4:00 PM EDT [facility] Otolaryngology - Head and Neck Surgery Apolinar Hernández MD 07/27/21 4:35 PM [place] [address] Office Patient Name: Suman Warner Date of : 1955 PCP: Ilya Medina MD Reason for Follow Up: follow-up ear and face Interval History: 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 Hoang. Surgery 06/28/2021. Underwent left subtotal temporal bone resection in setting of prior canal wall down mastoidectomy, selective neck dissection levels IB, IIA, and III, parotidectomy, and ear overclosure with submentalflap. ?? Currently awaiting simulation for radiation. We had held on this pending recheck of flap to reassess viability. Patient reports some continued yellow clear drainage from the site of his flap at the ear. No foul-smelling discharge. Denies any pain. Denies any neck swelling. No fevers, chills, change in appetiteor other systemic symptoms. 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 He has continued with wet-to-dry dressings, and has been using a Caio dressing consequent to the drainage. He remains on the steroid taper for his delayed facial paralysis. Reports that in the last few days, left facial function has been significantly improving. Reports that he is now closing his eye. Reports significant improvements in his ability to eat and drink. Reports that these improvements in facial function have translated to improvements in his overall mental health. He is looking forward to radiation when cleared. Denies any ocular concerns. Continues artificial tears 5-6 times during the day, with ocular lubricant and moisture chamber at night. Occasional visual blurring by report, but no significant visual concerns. No red eye or foreign body sensat ion or ocular pain. Hearing remains subjectively stable. No dizziness/vertigo. Pertinent Exam Findings: General: Alert and oriented. No acute distress. Head and Face: Head is normocephalic, atraumatic. Facial resting tone asymmetric. Eyes: Conjugate gaze, ocular motility intact bilaterally. No spontaneous or gaze evoked nystagmus. Sclera and conjunctiva appear clear. Neurologic: Left facial palsy (HB III/). Facial function significantly improved from previous. Able to close eye with minimal effort. Improved forehead and buccal movement. Improved pucker and smile, although notable asymmetry here is still appreciated. Cranial Nerves II-XII otherwise grossly intact and symmetric. Ear/Neck: External ear without deformity. Postauricular and cervical incision left well healed. No appreciable postauricular or cervical edema, erythema, fluctuance or evidence of infection. Flap tissue at meatus devitalized, without significant granulation. No evident flap dehiscence or necrosis. Flap tissue partially debrided by Dr. Hoang. Serous discharge with suspected fat necrosis. No purulence or evidence of infection. Overall improved exam from last week. Hem/Lymph/Imm: Neck supple without cervical mass or lymphadenopathy. MSK: Normal neck range of motion. No trismus. Resp: Breathing comfortably without stridor or retractions. Normal respirations. CV: Normal carotid pulses. Psych: Normal mood and affect. Impression and Plan: Delayed wound healing at flap site with delayed left facial paresis/paralysis s/p subtotal temporalbone resection with facial nerve decompression without mobilization with parotidectomy, neck dissection and submental flap reconstruction. Awaiting adjuvant radiation. Facial function returning. Completing steroid taper. Continue PPI. Continue strict ocular hygiene measures as discussed. Exam of flap site overall improved today. Origins to delayed healing uncertain. Consider partial vascular compromise. However, there is no evidence of any significant necrosis, infection, dehiscence,or michelle flap compromise. Discussed with Dr. Hoang. Will discuss with Dr. Fitzgerald that patient cleared to proceed with simulation for radiation treatment from our perspective at this time. Will continue to follow close. Patient next follow-up already scheduled next week. Early return precautions reviewed. Total time spent counseling and coordinating patient care 30 minutes. 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
--- OUTSIDE RECORDS SUMMARY | 2024-02-10 15:16 | XMS_ITS | Encounter Summary ---
Author Organization [facility] [place]lyss[place] [address] Care Team Providers Care Corporate Communications Associate Name Role Phone Ilya Medina MD Primary Care Provider [phone] Encounter Details Date Type Department Care Team (Late st Contact Info) Description 08/01/2021 Notes Only Radiation Oncology at [address] [phone] Wilma Lovett, [employer]VENT[employer] CHALLENGE INSTRUCTOR OFFICE OF CARE MANAGEMENT Social History Tobacco Use Types Packs/Day Years [...] as of this encounter Progress Notes * Wilma Lovett, [employer] CH[employer]ENGE INSTRUCTOR - 08/01/2021 1:58 PM EDT Reason for Referral: Brief assessment of social and emotional needs. Met with pt prior to his sim today to introduce myself and role of social media project manager to assess/address barriers to getting to and through treatments; address support needs and connect with community services and resources as needed. Family/Social Supports: Pt identified his Raven of 36 years as his primary support. They have 3 sons. One son lives with them and the others are local. Pt also identified siblings. Living Situation/Daily Activities/Transportation: Pt indicated he manages his daily chores and activities. He lives in the area. He is expecting 30 RT treatments. He does not expect any issues with transportation. 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 He expects his treatments will work around his work schedule. He has Medicare and [employer] Medicare supplement for insurance. Advance Directives: Pt has completed his advance directive and a copy is in his record Utilization of Community Resources: None at this time. Adjustment to Illness/Mental Health Concerns: Pt indicated he is coping as best as he can. He feelshis and sons are also coping well. He has support from his family and friends. Offered support. Identified Needs: Pt did not identify any specific needs at this time. Referrals: None at this time. Social Work Interventions: Brief assessment Supportive Counseling Plan: Informed pt of AD[employer]URE CHALLENGE INSTRUCTOR availability and contact information. Will follow to assess/address psychosocial needs. EUGENIA Lewis, TOW DRIVER, OS[employer] [facility] documented in this encounter Plan of Treatment Upcoming Encounters Date Type Department Care Team (Late st Contact Info) Description 04/29/2024 11:00 AM EST Office Visit Radiation Oncology at [address] [phone] Tyrese Fitzgerald MD [facility] [place] [address] documented as of this encounter Visit Diagnoses Not on filedocumented in this encounter Care Teams Corporate Communications Associate Relationship 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
--- OUTSIDE RECORDS SUMMARY | 2024-02-10 15:16 | XMS_ITS | Encounter Summary ---
Author Organization Formerly [facility] [place] [address] Care Team Providers Care Land Planner Name Role Phone Ilya Medina MD Primary Care Provider [phone] Reason for Visit * Auth/Cert Specialty Diagnoses [...] Expiration Date Visits Re quested Visits Authorized [id number] 1 1 Encounter Details Date Type Department Care Team (Late st Contact Info) Description 08/15/2021 2:22 PM EDT Anesthesia Event [place] [address] Savannah Davidson MD [facility] DR [place] [address] Andres Byers MD [facility] [place] [address] Anesthesia Record Procedure Summary Procedure Name Responsible Anesthesiologist Anesthesia Start Time Anesthesia Stop Time FLAP, MYOCUTANEOUS OR FASCIOCUTANEOUS, HEAD & NECK W NAMED VASC PEDICLE (WRVU 15.68) (Left: Head) Savannah Davidson MD 08/15/21 1422 08/15/21 1830 Events Date Time Event Comment 08/15/2021 1359 1422 AN Verify 1422 Start 1423 An Start Data 1433 An Induction 1437 An Intubation 1445 Anesthesia Ready 1520 Procedure Start 1607 Handoff Intra-procedure anesthesia care was transferred after review of the patient's history, current anesthetic/surgical status and procedural plan, anticipated issues and expected post-operative course (including disposition.) Nany Almendarez MD 1805 Quick Note Extubation crit eria met including SpO2 > 92%, spontaneous Vt > 5 mL/kg, spontaneous RR > 7 bpm, ETCO2 < 50 mmHg, ETCO2 downtrending towards baseline, full reversal of muscle relaxation, TOF ratio > 90%, intact cough/gag reflexes, temperature > 35.5 C, and following verbal commands. Oropharynx suctioned and patient extubated to 6 L of oxygen via facemask without any airway adjuncts. Hemodynamically stable and spontaneous ventilation maintained. 180 Extubation/LMA Out 1817 an stop data 1830 Recovery or ICU Handoff Rosana ent care was transferred to the destination unit staff after review of the patient's medical history, current anesthetic/surgical status and plan, according to the Provider Handoff Checklist. 1829 Stop Meds Name Total Midazolam 1 mg fentaNYL 100 mcg IV Lidocaine 100 mg Propofol 250 mg Rocuronium 20 mg PHENYLephrine 240 mcg ePHEDrine 25 mg Ondansetron 8 mg Neostigmine 5 mg Glycopyrrolate 0.8 mg Succinylcholine 100 mg Dexmedetomidine 16 mcg REMIfentanil INF 1 mg PHENYLephrine INF 2,000 mcg HYDROmorphone 2 mg/mL 0.4 mg lactated ringers infusion 600 mL Lactated Ringers 800 mL * Agents Name O2 Air N2O Sevoflurane (et) * Blood No blood administrations on file. Lines, Drains, and Airways Type Details Placement Removal Incision 06/28/21; 0910; Left ; ear (ear and lateral neck) 06/28/21 0910 by Kalpana Morris RN Incision 08/15/21; Left; temp oral region 08/15/21 0000 by Enrico Hubbard RN Drain/Device Site 06/28/21; 2341; Left ; anterior (# 2); neck; collapsible closed device; # 2; 08/18/21; 1049 (prior to this admission. no longer there) 06/28/21 2341 by Bridger Doshi RN 08/18/21 1049 by Yaquelin Pyle RN Urethral Catheter 08/15/21; Physician order; 14; inserted at this facility (At start of case); drainage bag to dependent drainage; 08/15/21; 195008/15/21 0000 by Jessica Herrera RN 08/15/211950 by Enrico Hubbard RN (RETIRED) Peripheral IV Line - Single Lumen 08/15/21; 1253; median cubital vein (antecubital fossa), left; [id number] catheter system; Anatomical Landmarks; 20 gauge, 1 in length; Kimberlyn Mercer RN; distraction, tolerated well, appears comfortable; catheter/device intact, removed per policy/procedure, site care per policy/procedure; 08/18/21; 1016 08/15/21 1253 by Criss Mercer RN 08/18/21 1016 by Anita Andres LNA ETT Mask Ventilation: Adjunct (2); ETT Type: Cuffed, Oral, YOMI; ETT Size: 7.5 mm; Mac Blade: 4; Indirect: Video; Notes: Cricoid Pressure, Stylette, Asleep; Attempts: 1; Laryngoscopy Grade: 1; ETT Placement Verified By: Capnometry, Visual; Secured at Teeth: 23 cm; Inserted by: MD Zeeshan; Removal Date: 08/15/21; Removal Time: 180508/15/21 1437 by Andres Byers MD 08/15/21 1806 by Maritza Osorio CRNA (RETIRED) Peripheral IV Line - Single Lumen 08/15/21; 1440; dorsal arch vein (top of hand), right; [id number] catheter system; 18 gauge; 08/15/21; 201308/15/21 1440 by Andres Byers MD 08/15/212013 by Enrico Hubbard RN Closed/Suction Drain 08/15/21; 1728; Lef t; Neck; 15 Guamanian (15 Fr round hubless Jarred drain) 08/15/21 1728 by Jessica Herrera RN 08/18/21 1050 by Yaquelin Pyle RN documented in this encounter Social History Tobacco Use Types Packs/Day Years [...] place to sleep or slept in a skilled nursing (including now)? No 07/19/2021 Sex and Gender Information Value Date Recorded Sex Assigned at Male 03/25/2021 10:08 AM EST Gender Identity Male 03/25/2021 10:08 AM EST Sexual Orientation Straight 03/25/2021 10 :08 AM EST documented as of this encounter OR Notes * Anesthesia Postprocedure Evaluation - Savannah Davidson MD - 08/15/2021 6:37 PM EDT Department of Anesthesiology Post-procedure Note Patient: Suman Warner Procedure Summary Date: 08/15/21 Room / Location: [facility] OR [facility] MAIN OR Anesthesia Start: 1422 Anesthesia Stop: 183 Procedures: FLAP, MYOCUTANEOUS OR FASCIOCUTANEOUS, HEAD & NECK W NAMED VASC PEDICLE (Left Head) DEBRIDEMENT SKIN, SUBCU, MUSCLE, HEAD/NECK (WRVU 2.7) (Left Head) Diagnosis: Encounter for post surgical wound check Cancer of temporal bone (Flap Necrosis) Surgeons: Jose D Hoang MD Responsible Provider: Savannah Davidson MD Anesthesia Type: general ASA Status: 3 All Anesthesia Providers: Anesthesiologist: Nany Almendarez MD; Savannah Davidson MD HOME HELP AIDE: Maritza Osorio CRNA Lumber Cutter: Andres Byers MD Vitals Value Taken Time BP 157/90 08/15/211944 Temp 36.8 ??C (98.2 ??F) 08/15/211944 Pulse 75 08/15/211944 Resp 12 08/15/211944 SpO2 95 % 08/15/211958 Pain Level 7 08/15/211914 Vitals shown include unvalidated device data. Patient Location: PACU/[facility] Level of Consciousness: Conscious but Sleepy Pain Management: Satisfactory Analgesia PONV: None Cardiovascular Status: At Baseline and Hemodynamically Stable Respiratory Status: At Baseline and Supplemental O2 (NC or FM) Postoperative Fluid Status: Intravascular EUvolemia Possible Anesthetic Complications: NONE apparent at time of evaluation Final Primary Anesthesia Type: General (The anesthetic type performed was the same as planned.) Comments: Savannah Davidson MD * Anesthesia Preprocedure Evaluation - Nany Almendarez MD - 08/14/2021 5:33 PM EDT Pre-Anesthesia Evaluation for: Suman Warner a 66 y.o. male. Procedure(s): FLAP, MYOCUTANEOUS OR FASCIOCUTANEOUS, HEAD & NECK W NAMED VASC PEDICLE DEBRIDEMENT SKIN, SUBCU, MUSCLE, HEAD/NECK (WRVU 2.7) Patient Active Problem List Diagnosis Date Noted ??? 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 Viral warts 02/20/2016 ??? Diarrhea 09/30/2012 ??? Chilblains 04/28/2012 ??? Visit for suture removal 10/16/2011 ??? Nevus 09/24/2011 ??? Dizziness 05/29/2011 ??? GERD (gastroesophageal reflux disease) 02/06/2011 ??? Chronic serous otitis media 12/06/2010 ??? Dysplastic nevus 11/30/2010 ??? Atypical nevus 11/29/2010 ??? Nocturia Past Medical History: Diagnosis Date ??? GERD (gastroesophageal reflux disease) 02/06/2011 ??? Glaucoma ??? Hypercholesteremia ??? Nocturia Past Surgical History: Procedure Laterality Date ??? PRG SOMATOSENSORY TEST, ANY/ALL PER. NERVES, TRUNK OR HEAD N/A 03/31/2021 FACIAL NERVE MONITORING, SETUP PERIPHERAL (WRVU 0.54) performed by Apolinar Hernández MD at [facility] OR ??? PRG SOMATOSENSORY TEST, ANY/ALL PER. NERVES, TRUNK OR HEAD Left 06/28/2021 FACIAL NERVE MONITORING, SETUP PERIPHERAL (WRVU 0.54) performed by Apolinar Hernández MD at [facility] OR ??? PRO ADJ TISS TRANSFER/REARRANGEMENT ANY AREA 30.1-60 SQCM Left 06/28/2021 ADJACENT TISSUE TRANSFER OR REARRANGEMENT; 30.1 TO 60.0 SQ CM, HEAD/NECK (WRVU 12.65) performed by Jose D Hoang MD at [facility] OR ??? PRO COLONOSCOPY, BIOPSY 10/09/2012 COLONOSCOPY FLEXIBLE, WITH BX performed by Xiang Owen MD at [facility] ENDOSCOPY ??? PRO EXC PAROTD, TOTAL, DISSECT 5TH NERV Left 06/28/2021 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, TOTAL, WITH DISSECTION AND PRESERVATION OF FACIAL NERVE(WRVU 19.53) performed by Jose D Hoang MD at [facility] OR ??? PRO MASTOIDECTOMY, COMPLETE Left 06/28/2021 MASTOIDECTOMY, COMPLETE (WRVU 12.56) performed by Apolinar Hernández MD at [facility] OR ??? PRO MICROSURG TECHNIQUES, REQ OPER MICROSCOPE Left 03/31/2021 MICROSCOPE USE (WRVU 3.46) performed by Apolinar Hernández MD at [facility] OR ??? PRO MICROSURG TECHNIQUES, REQ OPER MICROSCOPE N/A 06/28/2021 MICROSCOPE USE (WRVU 3.46) performed by Apolinar Hernández MD at [facility] MAIN OR ? ? PRO MUSCLE MYOCUTANEOUS/FASCIOUCUTANEOUS FLAP HEAD&NECK W/NAMED VASC PEDCL Left 06/28/2021 FLAP, MYOCUTANEOUS OR FASCIOCUTANEOUS, HEAD & NECK W NAMED VASC PEDICLE performed by Jose D Hoang MD at [facility] MAIN OR ??? PRO REMOVAL NODES, NECK, CERV MOD RAD Left 06/28/2021 @CERVICAL LYMPHADENECTOMY (MODIFIED RADICAL NECK DISSECTION) (WRVU 23.95) performed by Jose D Hoang MD at [facility] MAIN OR ??? PRO RESECT TEMPORAL BONE, MID LEVEL GAME DESIGNER APPRCH Left 06/28/2021 @RESECTION TEMPORAL BONE, EXTERNAL APPROACH (WRVU 37.42) performed by Apolinar Hernández MD at [facility] PRO ??? PRO TYMPANOPLASTY Left 03/31/2021 TYMPANOPLASTY (WRVU 10.05) performed by Apolinar Hernández MD at [facility] MAIN OR ??? PRO UPPER GI ENDOSCOPY, BIOPSY 03/20/2011 UPPER GASTROINTESTINAL ENDOSCOPY,WITH BIOPSY SINGLE OR MULTIPLE performed by JORDAN RAMOS at [facility] ENDOSCOPY Social History Tobacco Use ??? Smoking status: Never Smoker ??? Smokeless tobacco: Never Used Substance Use Topics ??? Alcohol use: No Social History Substance and Sexual Activity Drug Use Never No Known Allergies Medications: MAR and/or home medications have been reviewed. Physical Exam: Preprocedure Vitals Current as of 08/14/21 1733 No BP, pulse, respiration, SpO2, or temperature recorded. Height: 177.8 cm (5' 10) (08/10/21) Weight: 113.4 kg (250 lb) (08/10/21) BMI: 35.87 IBW: 73 kg (160 lb 15 oz) Airway Assessment: Mallampati: II TM distance: >3 FB Neck ROM: full Cardiovascular Assessment: Rhythm: regular Rate: normal Pulmonary Assessment: unlabored breathing Dental Assessment: - normal exam Misc Assessment: IV access: Peripheral line Last Filed Perioperative Cognitive Screening None Anesthesia Plan: ASA 3 general, with a(n) intravenous induction Patient interviewed and examined. Suman Warner is a 66 y.o. 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 Hoang. NPO adequate. Activity prior to surgery: METS>4 (2 FOS easily) Meds: No current facility-administered medications for this encounter. ??? amoxicillin-clavulanate (Augmentin) 875-125 mg Tablet ??? cyanocobalamin, Vitamin B-12, (Vitamin B-12) 1,000 mcg Tablet ??? white petrolatum-mineral oiL (Refresh P.M.) ??? mirabegron (Myrbetriq) 25 mg Tablet Sustained Release 24 hr ??? predniSONE (Deltasone) 10 mg Tablet ??? acetaminophen (Tylenol) 325 mg Tablet ??? carboxymethylcellulose (Refresh Plus) 0.5 % Dropperette ??? erythromycin (Romycin) 5 mg/gram (0.5 %) Ointment ??? ibuprofen (Motrin) 400 mg Tablet ??? ciprofloxacin-dexamethasone (Ciprodex) 0.3-0.1 % Drops, Suspension ??? loperamide (Imodium A-D) 2 mg Capsule ??? tamsulosin (Flomax) 0.4 mg Capsule ??? FLUoxetine (PROzac) 10 mg Capsule ??? atorvastatin (LIPITOR) 20 mg Tablet ??? dorzolamide-timolol (COSOPT) 22.3-6.8 mg/mL Drops ??? rabeprazole (ACIPHEX) 20 mg tablet Allergies No Known Allergies Anesthesia Hx: *Pt reports prolonged sore throat (about a week) after surgery in March. Otherwise denies any complications from anesthesia and any Fhx of complications with anesthesia. Previously tolerated GA for SCCa resection w/o issue. Prior anesthesia c/b corneal abrasion, and failed DL, ultimate CMAC intubation. EMV, G1V CMAC 7.5ETT EKG: None on file ECHO: None on file Labs: 06/29/21 0040 WBC 11.7* HGB 14.0 HCT 40.6 PLATELET 164 06/29/21 0040 NA 138 K 4.4 CL 103 CO2 24 BUN 14 CREATININE 1.01 No results for input(s): AST, ALT, ALKPHOS, BILITOT, BILIDIR in the last 7068 hours. No results for input(s): PT, INR, PTT in the last 168 hours. No results found for: ABORH Plan is for standard IV induction, GA with ETT (videolaryngoscopy), standard ASA monitors, and PIVx2. Informed Consent: Anesthetic plan and risks discussed with patient. Plan discussed with attending and resident. Anesthesia Screening documented in this encounter Plan of Treatment Upcoming Encounters Date Type Department Care Team (Late st Contact Info) Description 04/29/2024 11:00 AM EST Office Visit Radiation Oncology at [address] [phone] Tyrese Fitzgerald MD [facility] [place] [address] documented as of this encounter Visit Diagnoses Not on filedocumented in this encounter Administered Medications Inactive Administered Medications - up to 3 most recent administrations Medication Order MAR Action Action Date Dose Rate Site dexmedetomidine (Precedex) (4 mcg/mL) bolus injection (Anesthsia) Intravenous, PRN, Starting on Sat08/15/21 at 1427, Until Sat08/15/21 at 1830, Anesthesia Intra-op, Routine Given 08/15/2021 2:45 PM EDT 8 mcg Given 08/15/2021 2:27 PM EDT 8 mcg ePHEDrine sulfate (5 mg/mL) multi-dose injection Intravenous, PRN, Starting on Sat08/15/21 at 1500, Until Sat08/15/21 at 1830, Anesthesia Intra-op, Routine Given 08/15/2021 3:27 PM EDT 5 mg Given 08/15/2021 3:17 PM EDT 5 mg Given 08/15/2021 3:14 PM EDT 5 mg fentaNYL (pf) (50 mcg/mL) multi-dose injection Intravenous, PRN, Starting on Sat08/15/21 at 1427, Until Sat08/15/21 at 1830, Anesthesia Intra-op, Routine Given 08/15/2021 2:27 PM EDT 100 mcg glycopyrrolate (Robinul) (0.2 mg/mL) multi-dose injection Intravenous, PRN, Starting on Sat08/15/21 at 1724, Until Sat08/15/21 at 1830, Anesthesia Intra-op, Routine Given 08/15/2021 5:24 PM EDT 0.8 mg HYDROmorphone (Dilaudid) (2 mg/mL) multi-dose injection solution Intravenous, PRN, Starting on Sat08/15/21 at 1733, Until Sat08/15/21 at 1830, Anesthesia Intra-op, Routine Given 08/15/2021 5:33 PM EDT 0.4 mg lactated ringers infusion 1,000 mL, at 100 mL/hr, Intravenous, CONTINUOUS, Starting on Sat08/15/21 at 1300, Until Sat08/15/21 at 2014, Day of Surgery (Day of Procedure) Restarted 08/15/2021 2:22 PM EDT New Bag 08/15/2021 12:54 PM EDT 1,000 mLs 100 mL/hr lactated ringers infusion Intravenous, CONTINUOUS PRN, Starting on Sat08/15/21 at 1440, Until Sat08/15/21 at 1831, Anesthesia Intra-op New Bag 08/15/2021 2:40 PM EDT lidocaine (pf) (Xylocaine) (20 mg/mL) 2% injection syringe Intravenous, PRN, Starting on Sat08/15/21 at 1433, Until Sat08/15/21 at 1830, Anesthesia Intra-op, Routine Given 08/15/2021 2:33 PM EDT 100 mg midazolam (pf) (Versed) (1 mg/mL) multi-dose injection Intravenous, PRN, Starting on Sat08/15/21 at 1420, Until Sat08/15/21 at 1830, Anesthesia Intra-op, Routine Given 08/15/2021 2:20 PM EDT 1 mg neostigmine (Bloxiver) (1 mg/mL) injection Intravenous, PRN, Starting on Sat08/15/21 at 1724, Until Sat08/15/21 at 1830, Anesthesia Intra-op, Routine Given 08/15/2021 5:24 PM EDT 5 mg ondansetron (pf) (Zofran) (2 mg/mL) injection Intravenous, PRN, Starting on Sat08/15/21 at 1733, Until Sat08/15/21 at 1830, Anesthesia Intra-op, Routine Given 08/15/2021 5:33 PM EDT 8 mg PHENYLephrine (Margarito-Synephrine) (80 mcg/mL) in sodium chloride 0.9% 250 mL infusion Intravenous, CONTINUOUS PRN, Starting on Sat08/15/21 at 1529, Until Sat08/15/21 at 1830, Anesthesia Intra-op, Routine Restarted 08/15/2021 3:51 PM EDT 20 mcg/min 15 mL/hr Rate/Dose Change 08/15/2021 3:38 PM EDT 20 mcg/min 15 mL/h r New Bag 08/15/2021 3:29 PM EDT 40 mcg/min 30 mL/hr PHENYLephrine in NS (PF) (MARGARITO-SYNEPHRINE) 0.8 mg/10 mL (80 mcg/mL) multi-dose injection Syrg Intravenous, PRN, Starting on Sat08/15/21 at 1517, Until Sat08/15/21 at 1830, Anesthesia Intra-op, Routine Given 08/15/2021 3:27 PM EDT 80 mcg Given 08/15/2021 3:23 PM EDT 80 mcg Given 08/15/2021 3:17 PM EDT 80 mcg propofoL (Diprivan) 10 mg/mL bolus injection (Anesthesia) Intravenous, PRN, Starting on Sat08/15/21 at 1433, Until Sat08/15/21 at 1830, Anesthesia Intra-op Given 08/15/2021 2:37 PM EDT 50 mg Given 08/15/2021 2:36 PM EDT 50 mg Given 08/15/2021 2:33 PM EDT 150 mg remifentaniL (Ultiva) (0.02 mg/mL) infusion (Anesthesia) Intravenous, CONTINUOUS PRN, Starting on Sat08/15/21 at 1450, Until Sat08/15/21 at 1830, Anesthesia Intra-op New Bag 08/15/2021 2:50 PM EDT 0.05 mcg/kg/min 17.01 mL/hr rocuronium (Zemuron) (10 mg/mL) multi-dose injection Intravenous, PRN, Starting on Sat08/15/21 at 1442, Until Sat08/15/21 at 1830, Anesthesia Intra-op, Routine Given 08/15/2021 2:42 PM EDT 20 mg succinylcholine (Anectine;Quelicin) (20 mg/mL) injection Intravenous, PRN, Starting on Sat08/15/21 at 1434, Until Sat08/15/21 at 1830, Anesthesia Intra-op, Routine Given 08/15/2021 2:34 PM EDT 100 mg documented in this encounter Care Teams Land Planner Relationship 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
--- OUTSIDE RECORDS SUMMARY | 2024-02-10 15:16 | XMS_ITS | Encounter Summary ---
Author Organization [facility] Address [facility] [place] [address] Care Team Providers Care Clarifier Operator Name Role Phone Ilya Medina MD Primary Care Provider [phone] Encounter Details Date Type Department Care Team (Late st Contact Info) Description 07/31/2021 Orders [place] [address] Tyrese Fitzgerald MD [facility] [place] [address] Malignant neoplasm of bones of skull and [...] EST Office Visit Radiation Oncology at [address] [phone] Tyrese Fitzgerald MD [facility] [place] [address] documented as of this encounter Visit Diagnoses Diagnosis 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
--- OUTSIDE RECORDS SUMMARY | 2024-02-10 15:16 | XMS_ITS | Encounter Summary ---
Author Organization [facility] Address [facility] [place] [address] Care Team Providers Care Clubhouse Attendant Name Role Phone Ilya Medina MD Primary Care Provider [phone] Reason for Visit * Auth/Cert Specialty Diagnoses [...] Expiration Date Visits Re quested Visits Authorized [id number] 1 1 Encounter Details Date Type Department Care Team (Late st Contact Info) Description 08/15/2021 2:25 PM EDT - 08/15/2021 6:05 PM EDT Surgery [place] [id number] Jose D Hoang MD [facility] [place] [address] FLAP, MYOCUTANEOUS OR FASCIOCUTANEOUS, HEAD & NECK W NAMED VASC PEDICLE (WRVU 15.68) Social History Tobacco Use Types Packs/Day Years [...] Sign Reading Time Taken Comments Blood Pressure 159/96 08/15/2021 12:37 PM EDT Pulse 67 08/15/2021 12:37 PM EDT Temperature 36.3 ??C (97.3 ??F) 08/15/2021 12:37 PM E DT Respiratory Rate 18 08/15/2021 12:37 PM EDT Oxygen Saturation 99% 08/15/2021 12:37 PM EDT Inhaled Oxygen Concentration - - Weight 113.4 kg (250 lb) 08/15/2021 12:37 PM EDT Height 177.8 cm (5' 10) 08/15/2021 12:37 PM EDT Body Mass Index 35.87 08/15/2021 [...] conjunctiva healthy Ears: Hearing aid on RIGHT, Woodruff dressing in place on LEFT, flap site [...] NEURO INTERP ONLY CLINICAL HISTORY: 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 Subcutaneous air, surgical candace and nonspecific soft tissue thickening are contained [...] who have questions please contact the health palliative care physician that requested your imaging first. Discharge Info [...] Incision Care: Your incision was closed with sutures/candace. These will need to be removed in [...] -You can reach the ENT clinic at [phone] for appointment questions. -The ENT triage nurse is available at [phone] -For urgent issues during evenings (5 PM - 7 AM) and weekends the ENT resident home health clinical liaison can be reached through the main hospital rag willow operator at [phone] Follow Up: You will need to follow [...] 1:00 PM Jayne Darby MD Otolaryngology at [facility] Arrive at: Wire Wrapping Machine Operator Area [phone] 10/06/2021 8:50 AM [facility] MRI at [facility] Arrive at: 3Z INTERVENTIONAL RADIOLOGY [phone] 10/06/2021 11:30 AM Apolinar Hernández MD Otolaryngology at [facility] Arrive at: Wire Wrapping Machine Operator Area [phone] General Instructions None __ Your Medications New [...] Center 08/25/2021 1:00 PM Jayne Darby MD [facility] 10/06/2021 8:50 AM [facility] 6 [facility] Rad 10/06/2021 11:30 AM Apolinar Hernández MD [facility] Outpatient Services/Studies: No discharge procedures on file. Primary Care Doctor: Ilya Medina MD [phone] Signed: YUE Huddleston 08/18/2021 Routed to Estefany [...] Incision Care: Your incision was closed with sutures/candace. These will need to be removed in [...] -You can reach the ENT clinic at [phone] for appointment questions. -The ENT triage nurse is available at [phone] -For urgent issues during evenings (5 PM - 7 AM) and weekends the ENT resident home health clinical liaison can be reached through the main hospital rag willow operator at [phone] Follow Up: You will need to follow [...] 1:00 PM Jayne Darby MD Otolaryngology at [facility] Arrive at: Wire Wrapping Machine Operator Area [phone] 10/06/2021 8:50 AM [facility] 6 MRI at [facility] Arrive at: 3Z INTERVENTIONAL RADIOLOGY [phone] 10/06/2021 11:30 AM Apolinar Hernández MD Otolaryngology at [facility] Arrive at: Wire Wrapping Machine Operator Area [phone] documented in this encounter Medications at Time [...] as of this encounter Progress Notes * Yaquelin Pyle RN - 08/18/2021 12:20 PM EDT [...] PGY2 08/18/21 9:48 AM ENT Team Pager: [phone] * Tiny Alfaro RN - 08/18/2021 7:37 AM EDT MAURO [...] Intake/Output Summary (Last 24 hours) at 08/17/2021 0622 Last data filed at 08/17/2021 0400 Gross [...] PGY2 08/17/21 6:55 AM ENT Team Pager: [phone] * Caridad Sifuentes MD - 08/16/2021 10:46 [...] PGY1 08/16/21 10:46 AM ENT Team Pager: [phone] * Alyce Monroe MD - 08/15/2021 10:20 [...] Pressure dressings in place over L mastoid. Candace visible on neck overlying L neck drain [...] status Alyce Monroe MD PGY1 General Surgery - [facility] documented in this encounter H&P Notes [...] PGY1 08/15/21 1:02 PM ENT Team Pager: [phone] documented in this encounter Miscellaneous Notes * [...] MEDICARE SUPPLEMENT Prescription Coverage: Yes Preferred Pharmacy: [id number] - [place], [place] - [address] [facility] & [address] [address] [facility] - [place], [place] - [address] [facility] [address] [facility] [address] This plan was formulated with input from patient, and team. All are in agreement with plan. I have verbally reviewed Medicare Discharge Rights with patient. Patient verbalizes understanding of right to appeal this discharge if feeling not medically ready. Offered a copy of this letter. Barbara Baez RN BSN CM Neurology [employer] Labourer of Care Management Pager [phone] * Plan of Care - Tiny Alfaro RN - 08/17/2021 11:20 PM EDT OUTCOME EVALUATION NOTE: OUTCOME SUMMARY: AOx4, / strength x4 Per provider: Suman Warner is [...] flap necrosis and patient returned to OR / for flap debridement and temporalis muscle flap [...] COVID test: Lab Results Component Value Date [id number] Not Detected 08/15/2021 Present on Admission: ??? S/P debridement Hospitalizations Within the Past 30 Days: no previous admission in last 30 days Patient receiving hospital care under Inpatient status. Admission order reviewed. Primary Insurance on file: MEDICARE Secondary Insurance on file:@ Primary care provider on file: Ilya Medina MD [phone] Pharmacy: [id number] [place], [place] - [address] [place] [address] AT [facility] & [address] [phone] [facility] - [place], [place] - [address] [address] Advance Care Planning: Attempt Cardiopulmonary Resuscitation - Inpatient Received -Advanced Directive: Yes, on file Who is your DPOA-HC?: Spouse Current Functional Ability: Independent Functional Status Prior to Admission: Independent Home Environment: Others in the home: spouse. Current Living Arrangements: home/apartment/condo. Accessibility Concerns:two story home, no barriers. Current DME: none [address] [facility] [address] Social & Family Supports: All names listed [...] home via when medically ready. Registered Nurse Wheel Worker / Hand Marker will continue to follow patient???s progress and remain available if situation changes for coordination of care, psychosocial support and/or discharge planning. Pt is open to [facility] again if drain needs to staying in at discharge, otherwise is nothomebound. Office of Care Management Barbara Baez RN BSN CM Neurology [employer] Labourer of Care Management Pager [phone] * Plan of Care - Tiny Alfaro [...] Hoang MD - 08/15/2021 3:21 PM EDT [facility] Operative Note Patient Name: Suman Warner : [id number] MR#: [id number] Case Date: 08/15/2021 Surgeon: Jose D Hoang MD Divakar, Prashanthi, MD Bell, Rebecca, MD Higgins, YUE Zimmerman Diagnosis: Flap Necrosis Procedure: 1. Debridement of Left Submental Flap 2. Left Temporalis Muscle Pedicled Flap (6 cm x 6 cm) Anesthesia: General via Oral ETT Estimated Blood Loss: 75 cc HPI/Surgical Indications: Suman Warner is a 66 y.o. 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 Patient was turned [...] EST Office Visit Radiation Oncology at [address] [phone] Tyrese Fitzgerald MD [facility] [place] [place] [address] documented as of this encounter Procedures Procedure [...] Debridement Muscle And Fascia 20 Sq Cm/< (38059) Yes 08/15/2021 2:23 PM EDT Encounter for post surgical wound check Cancer of temporal bone Muscle Myocutaneous/Fasciouc utaneous Flap Head&Neck W/Named Vasc Pedcl (40174) Yes 08/15/2021 2:23 PM EDT Encounter for post surgical wound check Cancer of temporal bone RAPID COVID-19 PCR ([facility]) Routine 08/15/2021 1:11 PM EDT FLAP, MYOCUTANEOUS [...] 3:38 AM EDT) Neutrophil % 87.3 % [facility] Neutrophil Absolute 6.86(H) 1.70 - 6.10 x10(3)/mc L [facility] Lymph % 8.1 % [facility] Lymphocytes Abs 0.6(L) 0.9 - 3.2 x10(3)/mc L [facility] Monocyte % 4.2 % [facility] Monocyte Abs 0.3 0.3 - 0.9 x10(3)/[facility] Eos % 0.0 % [facility] Eosinophils Abs 0.0 0.0 - 0.4 x10(3)/[facility] Basophil % 0.1 % [facility] Baso Absolute 0.0 0.0 - 0.1 x10(3)/[facility] Immature Gran % 0.30 % [facility] Comment: Immature granulocytes(IG's)percentage and absolute count will include metamyelocytes, myelocytes, and promyelocytes. Blood smears from CBCs yielding IG's will be scanned manually for concordance. If this scan disagrees with the automated IG or if promyelocytes are noted, a manual differential will be performed. Immature Gran Absolute 0.02 0.00 - 0.04 x10(3)/[facility] Blood 08/16/2021 3:38 AM EDT 08/16/2021 3:53 AM EDT Narrative Resulting Agency Comment Spec In Lab Elsie TURNER HEMATOLOGY ORDER CHARI [facility] [place] [address] * Hemogram (08/16/2021 3:38 AM EDT) White Blood Cell 7.9 4.0 - 9.5 x10(3)/[facility] Red Blood Cell 4.82 4.58 - 5.54 x10(6)/[facility] Hemoglobin 15.1 13.7 - 16.5 g/dL [facility] Hematocrit 42.8 40.5 - 48.5 % [facility] Mean Cell Volume 88.8 82.9 - 93.1 fL [facility] Mean Cell Hemoglobin 31.3 27.5 - 32.1 pg [facility] Mean Cell Hemoglobin Concentration 35.3 32.0 - 35.7 g/dL [facility] Platelet 208 145 - 357 x10(3)/[facility] RDW Standard Deviation 40.2 36.0 - 45.0 fL [facility] RDW coefficient of variation 12.3 11.4 - 13.8 % [facility] Mean Platelet Volume 9.9 7.6 - 12.9 fL [facility] NRBC% auto 0.0 % [facility] NRBC Absolute 0.000 0.000 - 0.000 x10(3)/[facility] Blood 08/16/2021 3:38 AM EDT 08/16/2021 3:53 AM EDT Narrative Resulting Agency Comment Spec In Lab Elsie TURNER HEMATOLOGY ORDER CHARI Performing Organization Address [facility]/ZIP Co de Phone Number [facility] [place] [address] * Phosphorus (08/16/2021 3:38 AM EDT) Phosphorus 2.9 2.5 - 4.5 mg/dL [facility] Blood 08/16/2021 3:38 AM EDT 08/16/2021 3:53 AM EDT Narrative Resulting Agency Comment Spec In Lab Jose D Hoang MD CHEMISTRY ORDERABL ES Performing Organization Address City/[facility]/ZIP Co de Phone Number [facility] [place] [address] * (ABNORMAL) Magnesium (08/16/2021 3:38 AM EDT) Magnesium 0.62(L) 0.69 - 1.07 mmol/L [facility] Blood 08/16/2021 3:38 AM EDT 08/16/2021 3:53 AM EDT Narrative Resulting Agency Comment Spec In Lab Jose D Hoang MD CHEMISTRY ORDERABL ES [facility] [place] [address] * (ABNORMAL) Basic Metabolic Panel (non-fasting) (08/16/2021 3:38 AM EDT) Glucose 199 65 - 199 mg/dL [facility] Comment:Diabetes: >=200 mg/d L plus symptoms Blood Urea Nitrogen 16 10 - 20 mg/dL [facility] Creatinine 0.88 0.80 - 1.50 mg/dL [facility] Sodium 135 135 - 145 mmol/L [facility] Potassium 4.3 3.5 - 5.0 mmol/L [facility] Comment: Please note: ??Patients with WBC >100,000 may have falsely elevated Potassium levels. ??For accurate Potassium quantification in these patients send serum separator tube (gold top) for subsequent determinations. ??Contact the Clinical Chemistry Laboratory if there are any questions. Chloride 102 98 - 107 mmol/L [facility] Carbon Dioxide 20(L) 22 - 31 mmol/L [facility] Anion Gap 13 5 - 15 mmol/L [facility] Calcium 8.8 8.5 - 10.5 mg/dL [facility] Est Glomerular Filtration Rate 90 >=60 mL/min/1. 73 m?? [facility] Comment: This patient? s estimated [...] Jose D Hoang MD CHEMISTRY ORDERABL ES [facility] [place] [address] * COVID-19 PCR (08/15/2021 1:11 PM EDT) SARS-CoV-2 RNA (Rapid) Not Detected Not Detected [facility] Comment: This result should be [...] using the Simplexa COVID-19 Direct Assay by [employer] as authorized by the FDA issued Emergency [...] Department of Pathology and Laboratory Medicine at [facility], certified under the Clinical Laboratory Improvement Amendments [...] fact sheets at the following FDA website: https://www.fda.gov/medical-devices/dtkdhyvcbbc-kfkzhlo-7021-ilkkg-92-oxuuffjdt- use-a viebhfeuiwcvw-oditowi-nmryjay/lwcbt-ylynafsgxmh-hakb SARS-CoV-2 Source [employer] Swab [facility] Nasopharyngeal Swab 08/16/19 1:11 PM EDT 08/15/2021 5:09 PM EDT Comment:Symptoms->Surveillan ce Narrative Resulting Agency Comment Spec In Lab Jose D Hoang MD MICROBIOLOGY - GEN ERAL ORDERABLES Performing Organization Address City/State/[facility] Co de Phone Number [facility] [place] [address] documented in this encounter Visit Diagnoses Diagnosis Encounter for post surgical wound check 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, except mandible S/P debridement Encounter for post surgical wound check 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, except mandible documented in this encounter Admitting Diagnoses Diagnosis S/P debridement documented in this encounter Administered Medications Inactive Administered Medications - up to 3 most recent administrations Medication Order MAR Action Action Date Dose Rate Site acetaminophen (Tylenol) tablet 650 mg 650 mg, [...] Given 08/17/2021 2:24 PM EDT 5,000 Units ibuprofen (Motrin) tablet 400 mg 400 mg, [...] Given 08/16/2021 11:58 PM EDT 400 mg lidocaine-EPINEPHrine (1% - 1:100,000) injection ONCE PRN, Starting on Sat08/15/21 at 1505, Until Sat08/18/21 at 1440, Intra-Operative (Intra-Procedure), Routine Given 08/15/2021 3:05 PM EDT 9 mLs pantoprazole EC (Protonix) tablet 40 mg 40 [...] Given 08/17/2021 8:39 AM EDT 1 each povidone-iodine (Betadine Ophthalmic Prep) 5 % ophthalmic solution ONCE PRN, Starting on Sat08/15/21 at 1509, Until Sat08/18/21 at 1440, Intra-Operative (Intra-Procedure), Routine Given 08/15/2021 3:09 PM EDT 60 mLs 19- Surgical Site senna-docusate (Pericolace) 8.6-50 mg per tablet 2 [...] Dorothy Cisneros RN)2112 (Given - Provider: Tiny Aflaro RN)2358 (Given - Provider: Tiny Alfaro RN) [...] RN)0907 (New Bag - Provider: Dorothy Cisneros RN)1107 (Stopped - Provider: Dorothy Cisneros RN) pantoprazole [...] daily. 1021 (Not Given - Provider: Dorothy Cisneros RN - Reason: Medication not available)2118 (Given [...] refused)1999 (Given - Provider: Tiny Alfaro RN) 09 (Not Given - Provider: Yaquelin Pyle RN - Reason: Contraindicated - Comment: pt had BM) sennosides (Senokot) (1.76 mg/mL) oral liquid 17.6 mg 17.6 mg, Oral, 2 TIMES DAILY, First dose on Sat08/16/21 at 0900, Until Discontinued, Routine 09 (Not Given - Provider: Dorothy Cisneros RN - Reason: Patient/family refused)2100 (Not Given - Provider: Tiny Alfaro RN - Reason: Patient/family refused) 0841 (Not Given - Provider: Dorothy Cisneros RN - Reason: Patient/family refused)2099 (Hold - Provider: Tiny Alfaro RN - Reason: Patient/family refused) 09 (Not Given - Provider: Yaquelin Pyle RN - Reason: Contraindicated - Comment: pt had BM) tamsulosin (Flomax) capsule 0.4 mg 0.4 mg, Oral, DAILY, First dose on Sat08/16/21 at 0900, Until Discontinued, DO NOT CRUSH OR OPEN, Routine 09 (Given - Provider: Dorothy Cisneros RN) 0839 [...] Routine documented in this encounter Care Teams Clubhouse Attendant Relationship 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
--- OUTSIDE RECORDS SUMMARY | 2024-02-10 15:16 | XMS_ITS | Encounter Summary ---
Author Organization [facility] Address [facility] [place] [address] Care Team Providers Care Advertising Rep Name Role Phone Ilya Medina MD Primary Care Provider [phone] Reason for Visit * Reason Comments IV Access For SIM Encounter Details Date Type Department Care Team (Late st Contact Info) Description 09/06/2021 8:00 AM EDT Infusion Hematology Oncology at [address] [phone] Malignant neoplasm of bones of [...] Progress Notes * Indy Giron RN - 09/06/2021 8:00 AM EDT Patient arrived to infusion area for PIV start. #20g PIV placed in Right Hand. Excellent blood return noted, and PIV flushed easily. Patient tolerated procedure well. Report given to DIAN Muniz. 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
--- OUTSIDE RECORDS SUMMARY | 2024-02-10 15:16 | XMS_ITS | Encounter Summary ---
Author Organization [facility] Address [facility] [place] [address] Care Team Providers Care Ordnance Handler Name Role Phone Ilya Medina MD Primary Care Provider [phone] Encounter Details Date Type Department Care Team (Late st Contact Info) Description 09/20/2021 3:45 PM EDT Office Visit Radiation Oncology at [address] [phone] Tyrese Fitzgerald MD [facility] [place] [address] Malignant neoplasm of bones of skull and [...] place to sleep or slept in a custodial (including now)? No 07/19/2021 Sex and Gender Information Value Date Recorded Sex Assigned at Male 03/25/2021 10:08 AM EST Gender Identity Male 03/25/2021 10:08 AM EST Sexual Orientation Straight 03/25/2021 10 :08 AM EST documented as of this encounter Last Filed Vital Signs Vital Sign Reading Time Taken Comments Blood Pressure 141/94 09/20/2021 4:18 PM EDT Pulse 65 09/20/2021 4:18 PM EDT Temperature 37.1 ??C (98.8 ??F) 09/20/2021 4 :18 PM EDT Respiratory Rate - - Oxygen Saturation 98% 09/20/2021 4:1 8 PM EDT Inhaled Oxygen Concentration - - Weight 113.9 kg (251 lb 3.2 oz) 022 4:18 PM EDT with shoes Height - - Body Mass Index 36.04 08/24/2021 12:50 PM EDT documented in this encounter Progress Notes * Tyrese Fitzgerald MD - 09/20/2021 3:45 PM EDT ON TREATMENT VISIT NOTE Suman Warner is a 66 y.o. 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 Adjuvant radiotherapy. Current treatment dose: 2 Gy in 1 fractions. Anticipated total dose: 60 Gy in [...] Assessment: Weight : 113.9 kg initial Change: NA Objective: Vitals: 09/20/21 1618 BP: (!) 141/94 Patient Position: Sitting Pulse: 65 Temp: 37.1 ??C (98.8 ??F) SpO2: 98% Weight: 113.9 kg (251 lb 3.2 oz) SKIN: no skin erythema HEENT: no mucositis Assessment: No toxicity, treatment started within the last week. CTCAE TOXICITY GRADES (see below for mims): Site Grade Skin 0 Xerostomia 0 Pharyngeal Mucositis 0 Dysphagia 0 Hoarseness 0 TREATMENT RESPONSE: No change Plan: ?? Continue RT per prescription ?? Pain control: none needed at this time ?? Skin: Jeans cream prn ?? Mucositis: ?? Pain control: see above ?? Oral hygiene consisting of baking soda/salt rinse at least 8 times daily ?? Alimentation: development expert following ?? 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
--- OUTSIDE RECORDS SUMMARY | 2024-02-10 15:16 | XMS_ITS | Encounter Summary ---
Author Organization [facility] [place] [address] Care Team Providers Care Ehs Teacher Name Role Phone Ilya Medina MD Primary Care Provider [phone] Encounter Details Date Type Department Care Team (Late st Contact Info) Description 08/31/2021 Telephone Radiation Oncology at [address] [phone] Christiano Davidson Social History Tobacco Use Types Packs/Day Years [...] EST Office Visit Radiation Oncology at [address] [phone] Tyrese Fitzgerald MD [facility] [place] [address] documented as of this encounter Visit Diagnoses Not on filedocumented in this encounter Care Teams Ehs Teacher Relationship 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
--- OUTSIDE RECORDS SUMMARY | 2024-02-10 15:16 | XMS_ITS | Encounter Summary ---
Author Organization [facility] [place] [address] Care Team Providers Care Pig Handler Name Role Phone Ilya Medina MD Primary Care Provider [phone] Encounter Details Date Type Department Care Team (Late st Contact Info) Description 07/31/2021 Telephone Radiation Oncology at [address] [phone] Michelle Mario Social History Tobacco Use Types Packs/Day Years [...] encounter Miscellaneous Notes * Telephone Encounter - Michelle Mario - 07/31/2021 11:59 AM EDT Called with SIM time and Labs at [facility] for tomorrow 08/01/21. Suman will got to [facility] at 11 to have labs, then be here at [facility] for 12. He was fine with this plan. documented in this encounter Plan of Treatment Upcoming Encounters Date Type Department Care Team (Late st Contact Info) Description 04/29/2024 11:00 AM EST Office Visit Radiation Oncology at [address] [phone] Tyrese Fitzgerald MD [facility] [place] [address] documented as of this encounter Visit Diagnoses Not on filedocumented in this encounter Care Teams Pig Handler Relationship 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
--- OUTSIDE RECORDS SUMMARY | 2024-02-10 15:16 | XMS_ITS | Encounter Summary ---
Author Organization [facility] [place] [address] Care Team Providers Care Oil Field Laborer Name Role Phone Ilya Medina MD Primary Care Provider [phone] Encounter Details Date Type Department Care Team (Late st Contact Info) Description 09/20/2021 3:45 PM EDT Office Visit Hematology/Oncology at [address] [phone] 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 Referred by: Dr. Fitzgerald Assessment: HPI Patient Active Problem List Diagnosis Code ??? [...] except mandible C41.0 ??? S/P debridement Z98.890 Estimated body mass index is 36.04 kg/m?? as calculated from the following: Height as of 08/24/21: 177.8 cm (5' 10). Weight as of an earlier encounter on 09/20/21: 113.9 kg (251 lb 3.2 oz). Wt Readings from Last 3 Encounters: 09/20/21 113.9 kg (251 lb 3.2 oz) 09/06/21 115.3 kg (254 lb 3.2 oz) 08/24/21 113.4 kg (250 lb) 06/28/21 250# Surgery date UBW: 250# Patient's weight has been stable. Medications: Vitamin B-12, imodium prn, proazc, lipitor, Labs on 08/16/21: BG 199, BUN 16, Creat 0.88, Na 135, K 4.3, Mg 0.62, Phos 2.9 Nutrition Screen 09/22/2021 08/15/2021 Reason for assessment High risk diagnosis - Total MST Score - 0 Functional Status 09/22/2021 Appetite Similar compared to usual intake Fatigue Grade 1 Patient reports a good appetite and no difficulty with chewing or swallowing. He complains of being lower energy than usual. 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 Patient says he recently had glucose in urine as well as high blood pressure at a medical appointment. He has f/u with his PCP next week. Patient reports his A1C has been in prediabetic range for a few years. Food History, Access and Intake 09/22/2021 Who prepares meals? Patient/Self 24 hour recall /usual intake: Breakfast: Coffee, turkmen muffin with jam or 2 toast with peanut butter Lunch: Leftover chicken and 1/2 cup macaroni and cheese or ravioli Dinner: Turkmen takeout yesterday Snacks: Avoiding lately Beverages: Trying to drink a lot of water, 1-2 glasses of Lactaid milk per week Patient lives in [place] with his . We met prior to his appointment with Dr. Fitzgerald today.He started adjuvant RT yesterday 09/19/21. He has a good appetite and no difficulties with eating/swallowing. He has been trying to eat less salt and carbs due to concern about his blood sugars and blood pressure. He has been snacking less lately. Food Insecurity Screening 07/19/2021 Within the past 12 months, the food you bought just didn't last and you didn't have money to get more. 1 Estimated needs based on 113.9 k kcals (20 kcal/kg) obese 91-113 g protein (0.8-1 g/kg) ~2.3 L fluid Nutrition Intervention: ? Introduced myself and role in [facility] cancer care team, including weekly visits during treatment. ? Encouraged continuing with adequate PO intake to maintain weight during treatment. ? Patient to discuss blood glucose and blood pressure with PCP next week. Will f/u on diet recommendations for this after this appointment. Monitoring and Evaluation: Will follow up with Suman on 09/27 to re-evaluate. I have provided him with my card and contact information should he have any questions in the meantime. Thank you for this consult. Roseanna Wyatt RD documented in this encounter Plan of Treatment Upcoming Encounters Date Type Department Care Team (Late st Contact Info) Description 04/29/2024 11:00 AM EST Office Visit Radiation Oncology at [address] [phone] Tyrese Fitzgerald MD [facility] [place] [address] documented as of this encounter Visit Diagnoses Diagnosis 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, except mandible documented in this encounter Care Teams Oil Field Laborer Relationship 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
--- OUTSIDE RECORDS SUMMARY | 2024-02-10 15:16 | XMS_ITS | Encounter Summary ---
Author Organization [facility] [place] [address] Care Team Providers Care Erecting Engineer Name Role Phone Ilya Medina MD Primary Care Provider [phone] Encounter Details Date Type Department Care Team (Late st Contact Info) Description 09/27/2021 11:30 AM EDT Office Visit Hematology/Oncology at [address] [phone] [facility] DR HEMATOLOGY [place] [address] Malignant neoplasm of bones of skull and [...] Progress Notes * Roseanna Wyatt RD - 09/27/2021 11:30 AM EDT Nutrition Note Patient left clinic prior to our appointment today. Weight appears stable over the past week and patient is doing well with PO intake per Negin Damon RN. Will f/u on 10/04. documented in this encounter Plan of Treatment Upcoming Encounters Date Type Department Care Team (Late st Contact Info) Description 04/29/2024 11:00 AM EST Office Visit Radiation Oncology at [address] [phone] Tyrese Fitzgerald MD [facility] [place] [address] documented as of this encounter Visit Diagnoses Diagnosis 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, except mandible documented in this encounter Care Teams Erecting Engineer Relationship 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
--- OUTSIDE RECORDS SUMMARY | 2024-02-10 15:16 | XMS_ITS | Encounter Summary ---
Author Organization [facility] [place] [address] Care Team Providers Care Javascript Application Developer Name Role Phone Ilya Medina MD Primary Care Provider [phone] Encounter Details Date Type Department Care Team (Late st Contact Info) Description 09/21/2021 Telephone Hematology [place] [address] Cuca Boo Social History Tobacco [...] * Telephone Encounter - Cuca Boo - 09/21/2021 2:20 PM EDT [facility] Pediatric Critical Care Nurse spoke to Suman to inform him [employer] awarded him $250 [employer] grocery card. Cuca Boo documented in this encounter Plan of Treatment Upcoming Encounters Date Type Department Care Team (Late st Contact Info) Description 04/29/2024 11:00 AM EST Office Visit Radiation Oncology at [address] [phone] Tyrese Fitzgerald MD [facility] [place] [address] documented as of this encounter Visit Diagnoses Not on filedocumented in this encounter Care Teams Javascript Application Developer Relationship 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
--- OUTSIDE RECORDS SUMMARY | 2024-02-10 15:16 | XMS_ITS | Encounter Summary ---
Author Organization [facility] Address [facility] [place] [address] Care Team Providers Care K [employer] School Professional Name Role Phone Ilya Medina MD Primary Care Provider [phone] Encounter Details Date Type Department Care Team (Latest Contact Info) Description 07/19/2021 Travel Social History Tobacco Use Types Packs/Day [...] AM EST Office Visit Radiation Oncology at [address] [phone] Tyrese Fitzgerald MD [facility] [place] [address] documented as of this encounter Visit Diagnoses Not on filedocumented in this encounter Care Teams K [employer] School Professional Relationship 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
--- OUTSIDE RECORDS SUMMARY | 2024-02-10 15:16 | XMS_ITS | Encounter Summary ---
Author Organization [facility] [place] [address] Care Team Providers Care Contamination Consultant Name Role Phone Ilya Medina MD Primary Care Provider [phone] Encounter Details Date Type Department Care Team (Late st Contact Info) Description 08/03/2021 Telephone Hematology [place] [address] Cuca Boo Social History Tobacco [...] Telephone Encounter - Cuca Boo - 08/03/2021 2:09 PM EDT [facility] Liquor Tester spoke to Suman. He would like to apply for two grants [employer] plus grocery gift card. I have sent him the application. I have also requested a gas card from [employer]. $50. Cuca Boo documented in this encounter Plan of Treatment Upcoming Encounters Date Type Department Care Team (Late st Contact Info) Description 04/29/2024 11:00 AM EST Office Visit Radiation Oncology at [address] [phone] Tyrese Fitzgerald MD [facility] [place] [address] documented as of this encounter Visit Diagnoses Not on filedocumented in this encounter Care Teams Contamination Consultant Relationship 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
--- OUTSIDE RECORDS SUMMARY | 2024-02-10 15:16 | XMS_ITS | Encounter Summary ---
Author Organization [facility] Address [facility] [address] Care Team Providers Care Farmer Tree Fruit And Nut Crops Name Role Phone Ilya Medina MD Primary Care Provider [phone] Reason for Referral * Consultation (Routine) - Closed Specialty Diagnoses / Procedures Referred By Contac t Referred To Contact Radiation Oncology Diagnoses 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, except mandible Procedures Simulation for Radiation Therapy Planning Tyrese Fitzgerald MD [facility] [place] [address] [facility] Rad Onc Office [address] [place] [phone] Referral ID Status Reason Start Date Expiration Date V isits Requested Visits Authorized [id number] Closed Consult, Test & Treat 07/28/2021 07/28/2022 31 31 Encounter Details Date Type Department Care Team (Late st Contact Info) Description 07/28/2021 Orders Only [place] [phone] Tyrese Fitzgerald MD [facility] [place] [address] Malignant neoplasm of bones of skull and [...] EST Office Visit Radiation Oncology at [address] [phone] Tyrese Fitzgerald MD [facility] [place] [address] Scheduled Orders Name Type Priority Associated Diagnoses Orde r Schedule Simulation for Radiation Therapy Planning Procedures Routine 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, except mandible Ordered: 07/28/2021 documented as of this encounter Visit Diagnoses Diagnosis 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, except mandible documented in this encounter Care Teams Farmer Tree [employer] Relationship 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
--- OUTSIDE RECORDS SUMMARY | 2024-02-10 15:16 | XMS_ITS | Encounter Summary ---
Author Organization [facility] Address [facility] [place] [address] Care Team Providers Care Oncology Radiation Physician Name Role Phone Ilya Medina MD Primary Care Provider [phone] Encounter Details Date Type Department Care Team (Late st Contact Info) Description 09/15/2021 4:00 PM EDT Office [place] [address] Jayne Darby MD [facility] [place] [address] Cancer of temporal bone Social History Tobacco [...] as of this encounter Progress Notes * aJyne Darby MD - 09/15/2021 4:00 PM EDT OTOLARYNGOLOGY - HEAD & NECK SURGERY OUTPATIENT CLINIC FOLLOW-UP NOTE Name: Suman Warner Age/Sex: 66 y.o. male ENT Attending: Dr. Hoang Patient ID Suman Warner is a 66 y.o. 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 Using vaseline at the ear site once daily. Planning to start radiation next week. Physical Exam General: NAD, non-ill appearing Face: Very mild to almost no facial weakness of the LEFT face, improved from pre-operative exam, HBI Eyes: EOMI, conjunctiva healthy Ears: Normal right auricle, LEFT auricle meatal opening with mostly epithelialized flap. Silver nitrate applied to small area of granulation tissue. Nose: Patent nares, grossly normal appearance Oral Cavity: Mucosa is pink Neck: Neck incision connected to temporal region healthy, healing well. Chest: Unlabored breathing Neuro: Alert & oriented, moving extremities x 4 ASSESSMENT & RECOMMENDATIONS Suman Warner is a 66 y.o. male He is doing well after surgery and his flap is healthy and has mostly epithelialized with small area of granulation which silver nitrate was applied again. He has no signs of infection and very minimal swelling. His facial weakness has basically resolved. Discussed that patient is cleared for radiation. At least 20 minutes of this visit was spent counseling patient on adjuvant treatment plans and post-operative recovery process. Discussed patient and staffed with Dr. Criss Will (covering attending). Case was discussed prior with Dr. Jose D Hoang, [facility] route note. Recommendations: 1. Patient is cleared for Adjuvant Radiation. Planning to start radiation next week. 2. Follow-up with H&N clinic per grid after radiation. Follow-up with Dr. Hernández for any other otologic concerns. Jayne Darby MD, PGY-5 09/15/21 7:00 PM documented in this encounter Plan of Treatment Upcoming Encounters Date Type Department Care Team (Late st Contact Info) Description 04/29/2024 11:00 AM EST Office Visit Radiation Oncology at [address] [phone] Tyrese Fitzgerald MD [facility] [place] [address] documented as of this encounter Visit Diagnoses Diagnosis 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, except mandible documented in this encounter Care Teams Oncology Radiation Physician Relationship 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
--- OUTSIDE RECORDS SUMMARY | 2024-02-10 15:16 | XMS_ITS | Encounter Summary ---
Author Organization [facility] Address [facility] [place] [address] Care Team Providers Care Indoor Sports Centre Manager Name Role Phone lIya Medina MD Primary Care Provider Reason for Referral * Consultation (Routine) - Closed Specialty Diagnoses / Procedures Referred By Contac t Referred To Contact Radiation Oncology Diagnoses 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, except mandible Procedures Simulation for Radiation Therapy Planning Tyrese Fitzgerald MD [facility] [place] [address] [facility] Rad Onc Office [address] [place] [phone] Referral ID Status Reason Start Date Expiration Date V isits Requested Visits Authorized [id number] Closed Consult, Test & Treat 08/28/2021 08/28/2022 1 1 Encounter Details Date Type Department Care Team (Late st Contact Info) Description 08/28/2021 Orders [place] [address] Tyrese Fitzgerald MD [facility] [place] [address] Malignant neoplasm of bones of skull and [...] AM EST Office Visit Radiation Oncology at [address] [phone] Tyrese Fitzgerald MD [facility] RADI[place] [address] Scheduled Orders Name Type Priority Associated Diagnoses Orde r Schedule Simulation for Radiation Therapy Planning Procedures Routine 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, except mandible Ordered: 08/28/2021 documented as of this encounter Visit Diagnoses Diagnosis 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, except mandible documented in this encounter Care Teams Indoor Sports Centre Manager Relationship 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
--- OUTSIDE RECORDS SUMMARY | 2024-02-10 15:16 | XMS_ITS | Encounter Summary ---
Author Organization [facility] [place] [address] Care Team Providers Care Computerized Machine Fabric Cutter Name Role Phone Ilya Medina MD Primary Care Provider [phone] Encounter Details Date Type Department Care Team (Late st Contact Info) Description 09/08/2021 Telephone Hematology [place] [phone] Cuca Boo Social History Tobacco [...] * Telephone Encounter - Cuca Boo - 09/08/2021 11:17 AM EDT [facility] Application Integration Specialist received notification that [facility] awarded $350 for Home Equity loan . Original monthly payment is $731.69. I have lvm with Suman. Cuca Boo documented in this encounter Plan of Treatment Upcoming Encounters Date Type Department Care Team (Late st Contact Info) Description 04/29/2024 11:00 AM EST Office Visit Radiation Oncology at [address] [phone] Tyrese Fitzgerald MD [facility] [place] [address] documented as of this encounter Visit Diagnoses Not on filedocumented in this encounter Care Teams Computerized Machine Fabric Cutter Relationship 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
--- OUTSIDE RECORDS SUMMARY | 2024-02-10 15:16 | XMS_ITS | Encounter Summary ---
Author Organization [facility] Alyssia [place] [address] Care Team Providers Care Hoop Coiler Name Role Phone Ilya Medina MD Primary Care Provider [phone] Encounter Details Date Type Department Care Team (Late st Contact Info) Description 09/06/2021 Notes Only Radiation Oncology at [address] [phone] Wilma Lovett, MULTIFOLD OPERATOR OFFICE OF CARE MANAGEMENT Social History Tobacco [...] of this encounter Progress Notes * Wilma Lovett MSW - 09/06/2021 9:22 AM EDT Follow up with pt after his re sim today. He continues to work with EVERARDO Minor on accessing financial resources. He is working with her on his applications to the [employer] and [employer] [place]. Reminded pt I was another resource available to him. Pt did not identify any new needs today. Will follow as indicated. Brief assessment documented in this encounter Plan of Treatment Upcoming Encounters Date Type Department Care Team (Late st Contact Info) Description 04/29/2024 11:00 AM EST Office Visit Radiation Oncology at [address] [phone] Tyrese Fitzgerald MD [facility] DR [place] [address] documented as of this encounter Visit Diagnoses Not on filedocumented in this encounter Care Teams Hoop Coiler Relationship 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
--- OUTSIDE RECORDS SUMMARY | 2024-02-10 15:16 | XMS_ITS | Encounter Summary ---
Author Organization [facility] Address [facility] [place] [address] Care Team Providers Care Computer Analyst Name Role Phone Ilya Medina MD Primary Care Provider [phone] Reason for Visit * Reason Comments Follow-up Still draining, no p ain. Encounter Details Date Type Department Care Team (Latest Contact Info) Description 08/04/2021 10:30 AM EDT Office [place] [address] Apolinar Hernández MD [facility] [place] [address] Cancer of temporal bone; Mixed conductive and sensorineural hearing loss of both ears; Facial paralysis; Status post neck dissection Social History Tobacco Use Types Packs/Day Years [...] - Inhaled Oxygen Concentration - - Weight 113 kg (249 lb 3.2 oz) 08/04/2021 10:26 A M EDT Height 177.8 cm (5' 10) 08/04/2021 10:26 AM EDT Body Mass Index 35.76 08/04/2021 10:26 AM EDT documented in this encounter Progress Notes * Jayne Darby MD - 08/04/2021 10:30 AM EDT [facility] OTOLARYNGOLOGY BRIEF FOLLOW UP NOTE Suman Warner is a 66 y.o. male followed for: Stage pT3/4N0cM0 SCCa of the Left Middle [...] Has been doing the wet to dry dressing changes Facial nerve function on exam has improved. Performed excisional debridement of fat and along the anterior inferior aspect the flap had healthy bleeding. Expressed fluid drainage specifically with some more turbid fat necrosis and blood tinged fat necrosis fluid with some clots as well. Healthy fatappears. No clear flap failure - more like areas of partial necrosis of the flap. ASSESSMENT/RECOMMENDATIONS Facial nerve is improving. It appears that the flap has experience partial necrosis or loss in a slow fashion. Will recommend proceeding with radiation to avoid any further oncologic delays with close wound care. Discussed that there is possibility patient may need further operative procedures or flap revision after radiation. Patient seen with Dr. Hoang as part of Dr. Hernández's clinic visit. Jayne Darby MD 08/04/2021 Otolaryngology Attending Physician Addendum I have seen and examined the patient and reviewed the resident's history and I agree with the details as written. The assessment and plan were formulated in discussion with me and I agree with them as documented. Facial function improved, now HB II/. Continues eye care. No new eye c/o's. Has Optometry f/u next week. Suspected partial flap necrosis. Consider associated hematoma post-op based on exam findingstoday with debridement. This could have also contributed to patient's delayed facial weakness issues. Continue wet to dry and regular debridements. Slated for further radiation simulation planning today. Plan f/u approx 2 weeks, sooner prn. 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
--- OUTSIDE RECORDS SUMMARY | 2024-02-10 15:16 | XMS_ITS | Encounter Summary ---
[facility] Organization [facility] [place] [address] Care Team Providers Care Durability Technician Name Role Phone Ilya Medina MD Primary Care Provider [phone] Encounter Details Date Type Department Care Team (Late st Contact Info) Description 08/11/2021 Telephone [place]ematology [place] [address] Cuca Boo Social History Tobacco [...] * Telephone Encounter - Cuca Boo - 08/11/2021 9:01 AM EDT Community Health Management Rep received call from Suman. He has received the gas card from [facility]. He was asking about the [employer] application. I told him it is in the mail. He had his exam for his hearing aid. It will cost $2500. So the J[employer] davie $800 will help him cost shift for this expense. Cuca Boo documented in this encounter Plan of Treatment Upcoming Encounters Date Type Department Care Team (Late st Contact Info) Description 04/29/2024 11:00 AM EST Office Visit Radiation Oncology at [address] [phone] Tyrese Fitzgerald MD [facility] [place] [address] documented as of this encounter Visit Diagnoses Not on filedocumented in this encounter Care Teams Durability Technician Relationship 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
--- OUTSIDE RECORDS SUMMARY | 2024-02-10 15:16 | XMS_ITS | Encounter Summary ---
Author Organization [facility] [place] [address] Care Team Providers Care General Duty Nurse Name Role Phone Ilya Medina MD Primary Care Provider [phone] Encounter Details Date Type Department Care Team (Late st Contact Info) Description 09/06/2021 Notes Only Hematology [place] [id number] Cuca Boo Social History Tobacco Use Types [...] as of this encounter Progress Notes * Cuca Boo - 09/06/2021 1:25 PM EDT Community Health Livestock Buyer submitted [facility] davie applicaton asking for assistance with his mortgage $652.28 and home equity $179, also requested [employer] gift card $250. I have also submitted davie application to [facility] for Home Equity loan $350. Original monthly paymentis $731.69. Cuca Boo documented in this encounter Plan of Treatment Upcoming Encounters Date Type Department Care Team (Late st Contact Info) Description 04/29/2024 11:00 AM EST Office Visit Radiation Oncology at [address] [phone] Tyrese Fitzgerald MD [facility] [place] [address] documented as of this encounter Visit Diagnoses Not on filedocumented in this encounter Care Teams General Duty Nurse Relationship 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
--- OUTSIDE RECORDS SUMMARY | 2024-02-10 15:16 | XMS_ITS | Encounter Summary ---
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 I need two bills for the [employer] and [employer] davie, with the appropriate identifying information. He will send me the mortgage and Home equity bill. I am hoping this will help him cost shift to be able to purchase his hearing aid. I have sent him information about [employer] davie, to assist with the cost of his hearing aid. This fund is closed till 02/2022. I don't know if he is willing to wait till then. He must be income eligible as well. I sent the guidelines and application to him. Cuca Boo documented in this encounter Plan of Treatment Upcoming Encounters Date Type Department Care Team (Late st Contact Info) Description 04/29/2024 11:00 AM EST Office Visit Radiation Oncology at [address] [phone] Tyrese Fitzgerald MD [facility] DR [place] [address] documented as of this encounter Visit Diagnoses Not on filedocumented in this encounter Care Teams Hot Room Attendant Relationship 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
--- OUTSIDE RECORDS SUMMARY | 2024-02-10 15:17 | XMS_ITS | Encounter Summary ---
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 NERVES, TRUNK OR HEAD PRO MICROSURG TECHNIQUES, REQ OPER MICROSCOPE PRO REMOVAL NODES, NECK, CERV MOD RAD PRO MUSCLE MYOCUTANEOUS/FASCIOUCUTANEOUS FLAP HEAD&NECK W/NAMED VASC PEDCL PRO EXC PAROTD, LAT LOBE, DISSECT 5TH NERV @RESECTION TEMPORAL BONE, EXTERNAL APPROACH (WRVU 37.42) MASTOIDECTOMY, COMPLETE (WRVU 12.56) FACIAL NERVE MONITORING, SETUP PERIPHERAL (WRVU 0.54) MICROSCOPE USE (WRVU 3.46) @CERVICAL LYMPHADENECTOMY (MODIFIED RADICAL NECK DISSECTION) (WRVU 23.95) FLAP, MYOCUTANEOUS OR FASCIOCUTANEOUS, HEAD & NECK W NAMED VASC PEDICLE EXC.PAROTID TUMOR OR GLAND, LATERAL LOBE, W DISSECTION & PRESERVATION FACIAL NERVE (WRVU 17.16) Referral ID Status Reason Start Date Expiration Date Visits Re quested Visits Authorized [id number] 1 1 Encounter Details Date Type Department Care Team (Late st Contact Info) Description 06/28/2021 7:30 AM EST - 06/28/2021 4:15 PM EST Surgery [place] [address] Apolinar Hernández MD [facility] [place] [address] @RESECTION TEMPORAL BONE, EXTERNAL APPROACH (WRVU 37.42) Social History Tobacco Use Types Packs/Day Years Used Date Smoking Tobacco: Never Smokeless Tobacco: Never Alcohol Use Standard Drinks/Week Comments No 0 (1 standard drink = 0.6 oz pur e alcohol) Sex and Gender Information Value Date Recorded Sex Assigned at Male 03/25/2021 10:08 AM EST Gender Identity Male 03/25/2021 10:08 AM EST Sexual Orientation Straight 03/25/2021 10 :08 AM EST documented as of this encounter Last Filed Vital Signs Vital Sign Reading Time Taken Comments Blood Pressure 147/102 06/28/2021 6:26 AM EST Pulse 73 06/28/2021 6:26 AM EST Temperature 36.1 ??C (97 ??F) 06/28/2021 6:26 AM EST Respiratory Rate 16 06/28/2021 6:26 AM EST Oxygen Saturation 99% 06/28/2021 6:26 AM EST Inhaled Oxygen Concentration - - Weight 113.4 kg (250 lb) 06/28/2021 6:36 AM EST Height 177.8 cm (5' 10) 06/28/2021 6:26 AM EST Body Mass Index 35.87 06/28/2021 6:26 AM EST documented in this encounter Discharge Summaries * Allegra Aldana MD - 07/01/2021 10:16 AM EST Images from the original note were not included. OTOLARYNGOLOGY - HEAD & NECK SURGERY DISCHARGE SUMMARY General Info Patient Name: Suman Warner Patient Age: 66 y.o. Birthdate: 1955 Admit date: 06/28/2021 Discharge date: 07/01/21 Attending Physician: Apolinar Hernández MD Admission Info Diagnoses: Squamous cell carcinoma of head and neck Operations/Major Procedures: Procedure(s) (LRB): @RESECTION TEMPORAL BONE, EXTERNAL APPROACH (WRVU 37.42) (Left) MASTOIDECTOMY, COMPLETE (WRVU 12.56) (Left) FACIAL NERVE MONITORING, SETUP PERIPHERAL (WRVU 0.54) (Left) MICROSCOPE USE (WRVU 3.46) (N/A) @CERVICAL LYMPHADENECTOMY (MODIFIED RADICAL NECK DISSECTION) (WRVU 23.95) (Left) FLAP, MYOCUTANEOUS OR FASCIOCUTANEOUS, HEAD & NECK W NAMED VASC PEDICLE (Left) 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, TOTAL, WITH DISSECTION AND PRESERVATION OF FACIAL NERVE(WRVU 19.53) (Left) ADJACENT TISSUE TRANSFER OR REARRANGEMENT; 30.1 TO 60.0 SQ CM, HEAD/NECK (WRVU 12.65) (Left) History of Presentation: The below history was copied from the progress note on 04/27/[address] Darby: Suman Warner is a 65 y.o. male who presents with SCCa of the LEFT ear. Reports??constant otorrhea on the left since Spring 2020. Associated symptoms include??diminished hearing. Denies??fluctuation in hearing, facial weakness/facial spasm, tinnitus, dizziness/vertigo.??Prior history of chronic middle ear disease with otologic surgical history pertinent for??Left modified radical CWD tymp/mastoid in 1968 (Gamaliel) for cholesteatoma, Left revision tymp/mastoid-OCR 20 years ago, and Right modified radial CWD tymp/mastoid [place] [address] Linda.??Pathology??pertinent for SCCa diagnosedby Dr. Trinidad. PMH pertinent for??HTN, HPL, SARITA, GERD, glaucoma, and anxiety.?? Reason for Admission: post-operative recovery Hospital Course: The patient tolerated the above procedure well and was admitted post-operatively for routine care. His hospital course was uncomplicated and he was deemed medically stable for discharge home at 3 Days Post-Op. Prior to discharge his pain was controlled on oral pain meds and he was tolerating a Regular diet. During his hospitalization, PT/OT and Speech were consulted. Physical Exam on Discharge: General: NAD, non-ill appearing Face: Symmetric without dysmorphic features, HB 1 Eyes: EOMI, conjunctiva healthy Ears: Right postauricular incision c/d/i, no evidence of hematoma, skin paddle visible in EAC is pink and well perfused, neck closed with adrienne, c/d/i no evidence of hematoma, left neck MAURO drains with serosanguinous output Nose: Patent nares, grossly normal appearance Oral Cavity/Pharynx: Mucosa is pink, oropharynx symmetric Neck: Soft, trachea midline Chest: Non-labored breathing, regular rate Abdomen: Soft, non-tender Neuro: Alert & oriented, moving extremities x 4 ?? Lab Data: Recent Labs 06/29/21 0040 WBC 11.7* HGB 14.0 HCT 40.6 PLATELET 164 NA 138 K 4.4 CL 103 CO2 24 BUN 14 CREATININE 1.01 GLUCOSE 175 CALCIUM 8.2* Imaging and Other Studies: No results found. Discharge Info Discharge Condition: Stable Discharge to: Home/Home with VNA Discharge Medications: Your Medications New Medications Dose Details acetaminophen 325 mg Tab Commonly known as: Tylenol Take 2 tablets by mouth every 4 hours. 650 mg Refills: 0 amoxicillin-clavulanate 875-125 mg Tab Commonly known as: Augmentin Take 1 tablet by mouth 2 times daily for 3 days. 1 tablet Quantity: 6 tablet Refills: 0 carboxymethylcellulose 0.5 % Dpet Commonly known as: Refresh Plus Place 1 drop into both eyes 3 times daily as needed. 1 drop Refills: 0 erythromycin 5 mg/gram (0.5 %) Oint Commonly known as: Romycin Place into the left eye 6 times daily. Quantity: 3.5 g Refills: 0 ibuprofen 400 mg Tab Commonly known as: Motrin Take 1 tablet by mouth every 6 hours. 400 mg Quantity: 30 tablet Refills: 0 Continued medications, unchanged Dose Details atorvastatin 20 mg Tab Commonly known as: Lipitor Refills: 0 ciprofloxacin-dexamethasone 0.3-0.1 % Drps Commonly known as: Ciprodex Place 5 drops in ear(s) 2 times daily. Start this tomorrow after surgery on the operated ear and use until your follow-up. 5 drop Quantity: 10 mL Refills: 3 dorzolamide-timoloL 22.3-6.8 mg/mL Drop Commonly known as: Cosopt Refills: 0 FLUoxetine 10 mg Cap Commonly known as: PROzac Take 10 mg by mouth daily. 10 mg Refills: 0 loperamide 2 mg Cap Commonly known as: Imodium A-D Take 10 mg by mouth daily. 10 mg Refills: 0 RABEprazole 20 mg Tbec Commonly known as: Aciphex Take 1 tablet by mouth 2 times daily. 20 mg Quantity: 30 tablet Refills: 12 tamsulosin 0.4 mg Cap Commonly known as: Flomax Take 0.4 mg by mouth daily. 0.4 mg Refills: 0 Updated Allergies/ADRs: No Known Allergies Info for Patient Patient Instructions Instructions for Patient at Discharge: What to expect: You will have soreness which will improve over the next several days. The area around the incision may be numb. This should recover over the next few months. Medications: Antibiotics - take the antibiotics as prescribed for another 3 days Pain Control - use acetaminophen (Tylenol) and/or [...] various suppositories if you have any constipation (especially if related to narcotic/opoid related pain medication) Incision Care: Your incision was closed with sutures/adrienne. These will need to be removed in about 7-14 days, which will usually occur at your follow up appointment. Use diluted peroxide to clean the incision andapply Aquaphor/Vaseline twice daily. You may get the area wet and pat dry (it is okay to shower). Do not submerge the incision for at least 2 weeks. Drain Care: Strip the drain and record the output as you were instructed. When the output is less than 30ml fortwo days in a row it is ok for it to be removed. You may wait until your follow up appointment to have it removed (if it is within 5-7 days), call your PCP to see if they will remove it for you, or call the ENT clinic to schedule a nursing visit for drain removal. Activity: A good rule of thumb is if it hurts don't do it. Keep your head elevated when lying flat. No heavy lifting or straining for the next week. No smoking, this is important for wound healing. Diet: Resume baseline diet Corneal Abrasion: You sustained a corneal abrasion and have been treated for such while you were hospitalized. Pleasecontinue to use the erythromycin ointment liberally - at least 4 times a day - until the pain resolves. You may use the rephresh eye drops in between ointment administration (not at the same time) for lubrication and comfort. If your pain worsens or you notice any change in your vision, please callthe Ophthalmology department right away at: [phone] You should call your doctor if you develop: -Increasing pain and redness -Increasing drainage from the wound -Fever > 38.5Celsius or 101 Fahrenheit -Bleeding Contact: -You can reach the ENT clinic at [phone] for appointment questions. -The ENT triage nurse is available at [phone] -For urgent issues during evenings (5 PM - 7 AM) and weekends the ENT resident type disk quality control supervisor can be reached through the main hospital lock corner machine operator at [phone] Follow Up: You will need to follow up with ENT in 1 week. This appointment has been requested. You will be notified once it is scheduled, if you do not already see it below. If you do not hear from us in a timely manner, please call [phone] to receive your date and time. Currently Scheduled Appointments and VNA instructions: Future Appointments and Orders Future Appointments and Orders Future Appointments Provider Department Dept Phone 07/12/2021 9:40 AM Apolinar Hernández MD [place] [facility] [place]rive at: Telephone Instrument Supervisor Area [phone] 08/04/2021 10:30 AM Apolinar Hernández MD [place] [facility] [place]rive at: Telephone Instrument Supervisor Area [phone] 10/06/2021 11:30 AM Apolinar Hernández MD [place] at [facility] [place]rive at: Telephone Instrument Supervisor Area [phone] Future Orders Complete By Expires Referral to Home Health - at DISCHARGE [[id number] CPT(R)] As directed Process Instructions: Scheduling Instructions: Comments: DOCUMENTATION FOR VNA SERVICES (INCLUDING THOSE PATIENTS WITH MEDICARE COVERAGE REQUIRING HOME VNA SERVICES AND/OR HOSPICE SERVICES) PATIENT'S LOCATION: Suman Warner [address] [place] [id number] (home) Cell: Telephone Information: Vending Machine Coin Collector's Name: Raven In discussion with the attending physician, it is certified that this patient is under their care and that they, or a Nurse Practitioner,Clinical Nurse specialist or Physician Desk Manager who is working directly with them, had a face to face encounter that meets the physician face to face encounter requirements with this patient on 07/01/2021 (MD please enter DC date here) The encounter with the patient was in whole, or in part, for the following medical condition, whichis the primary reason for home health care services: S/P temporal bone resection, neck dissection, parotidectomy with submental flap re: SCCA L ear In discussion with the provider, it is certified that, based on their findings, the following services are medically necessary for home health services. To provide the following care/treatments with the clinical findings supporting the need for services as follows: HOME CARE ORDERS: RN ORDERS:Assess wound or incision, vital signs, cardiopulmonary status, nutrition, hydration, elimination, meds effectiveness and management; reinforce education re health issues Teach/reinforce MAURO drain care. HOME HEALTH CARE AGENCY: [facility] PHONE: [phone] FAX: [phone] Start of care: Within 24 to 48 hours of discharge FOR MEDICARE ONLY:In discussion with the attending physician, it is certified that the clinical findings support that this patient is homebound because absences from home require considerable and taxing effort due to: medically contraindicated re infection risk until cleared by ENT MD Please note that any additional orders needs or changes will need to be obtained from this patient's PCP: MD Nika [address] / [place] [phone] All A agencies which cover the area of patient's residence have been reviewed, either verbally maría writing, and patient/family have chosen the home health care agency noted Questions: Agency name and contact information: [facility] Patient location post discharge: [facility] What services are requested: Registered Nurse Start date: Responsible MD post discharge contact info: PCP General Instructions MAURO DRAIN CARE INSTRUCTIONS General Information: Drains help to keep fluid from collecting by removing the extra blood and fluid from under the skin. A drain is temporary. It stays in place until the drainage has slowed down or stopped. Your doctoror nurse will decide when each drain should be removed: This is usually after each drain has 30cc or less in 24 hours for 2 days in a row or at your next follow-up visit with your surgeon. How do I care for the drains at home? Pin your drains to your clothing by using a safety pin through the plastic loop on the top of the bulb. If the drain is not attached to your clothing, it may pull out from under your skin. Also, a drain usually feels more comfortable when it???s attached. To care for the drain at home, you will have to empty the drain, ???strip?? the drain tubing, and change the dressing if applicable. See the following pages for instructions on how to do this. What problems may I have with my drain? The bulb is not compressed- The bulb may not be squeezed tightly enough, the plug may not be closed securely, or the tube has slipped out a bit and is leaking. Follow the instructions on how to empty the drain. If the bulb remains expanded, then notify your doctor or nurse during business hours. ??? No drainage or sudden decrease in amount of drainage- This is usually due to clots in the drain. Follow the instructions on how to strip the drain tubing. ??? The tube accidentally falls out- If this happens, place a dry gauze dressing over the drain site and notify your doctor or nurse during business hours. ??? Increased redness, swelling, or heat around the tube insertion site- This may be a sign of infection. Take your temperature: if it is higher than 101F or 38.8C, call your doctor or nurse immediately. Otherwise, notify your doctor or nurse during business hours and keep the dressing clean and dry. Post-Surgical Drain Care: After surgery, you will have one or two drains, called a Kalyan-Ball (MAURO) drain, placed near the incision. This device collects fluid, under suction, from your surgical area. The drain promotes healing and recovery, and reduces the chance of infection. The drain will be in place until the drainage slows enough for your body to reabsorb fluid on its own. While you are hospitalized the nursing staff will care for the drain and teach you to continue to do so at home. How to Empty Your MAURO Drain Note: Wash your hands thoroughly before emptying your drain(s). 1. Have the plastic measuring cup from the hospital ready to collect and measure the drainage. Please measure the output at the same two times every 24 hours and record the amount. 2. Unpin the drain from your clothing. 3. 4. Open the top of the drain. Turn the drain upside down and squeeze the contents of the bulb into the measuring cup. Be sure to empty the bulb as completely as possible. Flush the contents in the toilet. 5. Use the drain output log chart to record the amount of drainage twice a day or any time the bulbis full. Record the total for 24 hours for each drain you have. 6. If you have more than one drain, remember to record the drainage from each drain separately. 7. To prevent infection, do not let the stopper or top of the bottle touch the measuring cup or anyother surface. 8. 9. Use one hand to squeeze all of the air from the drain. With the drain still squeezed, use your other hand to replace the top. This creates the suction necessary to remove the fluids from your body. 10. Pin the drain back on your clothing to avoid pulling it out accidently. 11. Wash your hands again. Remember to wash your hands before and after the procedure to reduce therisk of infection. Stripping the Tube Often the tube may become blocked with products of healing or clot. If you do not have drainage, then: ??? Hold the tube near where it is inserted in to the skin with your one hand. ??? Use the other hand to hold a pencil and gently squeeze the tubing with the pencil while moving it down toward the drain away from your skin. This forces the more sold material into the bulb for better drainage. ??? Repeat as necessary to start the draining again. Removal of the Tube ??? The tube may be removed once a single tube output is less than 30cc (1 oz.) for 24 hours. ??? Please call the office if the output becomes thicker or has a bad odor. Kalyan-Ball Drainage Record NAME: Date of Surgery: Date: Time: If more than one drain, which one: Drainage Amount (per drain) Total Amount (per drain; in 24 hours) __ Primary Care Doctor: Ilya Medina MD [phone] Signed: Allegra Aldana MD 07/01/2021 documented in this encounter Discharge Instructions * Discharge Instructions* Allegra Aldana MD - 07/01/2021 10:15 AM EST Images from the original note were not included. MARUO DRAIN CARE INSTRUCTIONS General Information: Drains help to keep fluid from collecting by removing the extra blood and fluid from under the skin. A drain is temporary. It stays in place until the drainage has slowed down or stopped. Your doctoror nurse will decide when each drain should be removed: This is usually after each drain has 30cc or less in 24 hours for 2 days in a row or at your next follow-up visit with your surgeon. How do I care for the drains at home? Pin your drains to your clothing by using a safety pin through the plastic loop on the top of the bulb. If the drain is not attached to your clothing, it may pull out from under your skin. Also, a drain usually feels more comfortable when it???s attached. To care for the drain at home, you will have to empty the drain, ???strip?? the drain tubing, and change the dressing if applicable. See the following pages for instructions on how to do this. What problems may I have with my drain? The bulb is not compressed- The bulb may not be squeezed tightly enough, the plug may not be closedsecurely, or the tube has slipped out a bit and is leaking. Follow the instructions on how to emptythe drain. If the bulb remains expanded, then notify your doctor or nurse during business hours. No drainage or sudden decrease in amount of drainage- This is usually due to clots in the drain. Follow the instructions on how to strip the drain tubing. The tube accidentally falls out- If this happens, place a dry gauze dressing over the drain site and notify your doctor or nurse during business hours. Increased redness, swelling, or heat around the tube insertion site- This may be a sign of infection. Take your temperature: if it is higher than 101F or 38.8C, call your doctor or nurse immediately.Otherwise, notify your doctor or nurse during business hours and keep the dressing clean and dry. Post-Surgical Drain Care: After surgery, you will have one or two drains, called a Kalyan-Ball (MAURO) drain, placed near the incision. This device collects fluid, under suction, from your surgical area. The drain promotes healing and recovery, and reduces the chance of infection. The drain will be in place until the drainage slows enough for your body to reabsorb fluid on its own. While you are hospitalized the nursing staff will care for the drain and teach you to continue to do so at home. How to Empty Your MAURO Drain Note: Wash your hands thoroughly before emptying your drain(s). Have the plastic measuring cup from the hospital ready to collect and measure the drainage. Please measure the output at the same two times every 24 hours and record the amount. Unpin the drain from your clothing. Open the top of the drain. Turn the drain upside down and squeeze the contents of the bulb into themeasuring cup. Be sure to empty the bulb as completely as possible. Flush the contents in the toilet. Use the drain output log chart to record the amount of drainage twice a day or any time the bulb isfull. Record the total for 24 hours for each drain you have. If you have more than one drain, remember to record the drainage from each drain separately. To prevent infection, do not let the stopper or top of the bottle touch the measuring cup or any other surface. Use one hand to squeeze all of the air from the drain. With the drain still squeezed, use your other hand to replace the top. This creates the suction necessary to remove the fluids from your body. Pin the drain back on your clothing to avoid pulling it out accidently. Wash your hands again. Remember to wash your hands before and after the procedure to reduce the risk of infection. Stripping the Tube Often the tube may become blocked with products of healing or clot. If you do not have drainage, then: Hold the tube near where it is inserted in to the skin with your one hand. Use the other hand to hold a pencil and gently squeeze the tubing with the pencil while moving it down toward the drain away from your skin. This forces the more sold material into the bulb for better drainage. Repeat as necessary to start the draining again. Removal of the Tube The tube may be removed once a single tube output is less than 30cc (1 oz.) for 24 hours. Please call the office if the output becomes thicker or has a bad odor. Kalyan-Ball Drainage Record NAME: Date of Surgery: Date: Time: If more than one drain, which one: Drainage Amount (per drain) Total Amount (per drain; in 24 hours) * Patient Instructions* Allegra Aldana MD - 06/30/2021 8:19 AM EST Instructions for Patient at Discharge: What to expect: You will have soreness which will improve over the next several days. The area around the incision may be numb. This should recover over the next few months. Medications: Antibiotics - take the antibiotics as prescribed for another 3 days Pain Control - use acetaminophen (Tylenol) and/or [...] various suppositories if you have any constipation (especially if related to narcotic/opoid related pain medication) Incision Care: Your incision was closed with sutures/adrienne. These will need to be removed in about 7-14 days, which will usually occur at your follow up appointment. Use diluted peroxide to clean the incision andapply Aquaphor/Vaseline twice daily. You may get the area wet and pat dry (it is okay to shower). Do not submerge the incision for at least 2 weeks. Drain Care: Strip the drain and record the output as you were instructed. When the output is less than 30ml fortwo days in a row it is ok for it to be removed. You may wait until your follow up appointment to have it removed (if it is within 5-7 days), call your PCP to see if they will remove it for you, or call the ENT clinic to schedule a nursing visit for drain removal. Activity: A good rule of thumb is if it hurts don't do it. Keep your head elevated when lying flat. No heavy lifting or straining for the next week. No smoking, this is important for wound healing. Diet: Resume baseline diet Corneal Abrasion: You sustained a corneal abrasion and have been treated for such while you were hospitalized. Pleasecontinue to use the erythromycin ointment liberally - at least 4 times a day - until the pain resolves. You may use the rephresh eye drops in between ointment administration (not at the same time) for lubrication and comfort. If your pain worsens or you notice any change in your vision, please callthe Ophthalmology department right away at: [phone] You should call your doctor if you develop: -Increasing pain and redness -Increasing drainage from the wound -Fever > 38.5Celsius or 101 Fahrenheit -Bleeding Contact: -You can reach the ENT clinic at [phone] for appointment questions. -The ENT triage nurse is available at [phone] -For urgent issues during evenings (5 PM - 7 AM) and weekends the ENT resident type disk quality control supervisor can be reached through the main hospital lock corner machine operator at [phone] Follow Up: You will need to follow up with ENT in 1 week. This appointment has been requested. You will be notified once it is scheduled, if you do not already see it below. If you do not hear from us in a timely manner, please call to receive your date and time. Currently Scheduled Appointments and VNA instructions: Future Appointments and Orders Future Appointments and Orders Future Appointments Provider Department Dept Phone 07/12/2021 9:40 AM Apolinar Hernández MD [place] [facility] at: Telephone Instrument Supervisor Area [phone] 08/04/2021 10:30 AM Apolinar Hernández MD [place]ol[place]ology at [facility]rive at: Telephone Instrument Supervisor Area [phone] 10/06/2021 11:30 AM Apolinar Hernández MD Otol[place]ology at [facility] [place]rive at: Telephone Instrument Supervisor Area [phone] Future Orders Complete By Expires Referral to Home Health - at DISCHARGE [[id number] CPT(R)] As directed Process Instructions: Scheduling Instructions: Comments: DOCUMENTATION FOR VNA SERVICES (INCLUDING THOSE PATIENTS WITH MEDICARE COVERAGE REQUIRING HOME VNA SERVICES AND/OR HOSPICE SERVICES) PATIENT'S LOCATION: Suman Warner [address] [place] [address] (home) Cell: Telephone Information: Vending Machine Coin Collector's Name: Raven In discussion with the attending physician, it is certified that this patient is under their care and that they, or a Nurse Practitioner,Clinical Nurse specialist or Physician Desk Manager who is working directly with them, had a face to face encounter that meets the physician face to face encounter requirements with this patient on 07/01/2021 (MD please enter DC date here) The encounter with the patient was in whole, or in part, for the following medical condition, whichis the primary reason for home health care services: S/P temporal bone resection, neck dissection, parotidectomy with submental flap re: SCCA L ear In discussion with the provider, it is certified that, based on their findings, the following services are medically necessary for home health services. To provide the following care/treatments with the clinical findings supporting the need for services as follows: HOME CARE ORDERS: RN ORDERS:Assess wound or incision, vital signs, cardiopulmonary status, nutrition, hydration, elimination, meds effectiveness and management; reinforce education re health issues Teach/reinforce MAURO drain care. HOME HEALTH CARE AGENCY: [facility]. PHONE: [phone] FAX: [phone] Start of care: Within 24 to 48 hours of discharge FOR MEDICARE ONLY:In discussion with the attending physician, it is certified that the clinical findings support that this patient is homebound because absences from home require considerable and taxing effort due to: medically contraindicated re infection risk until cleared by ENT MD Please note that any additional orders needs or changes will need to be obtained from this patient's PCP: MD Nika [address] / [place] [phone] All A agencies which cover the area of patient's residence have been reviewed, either verbally maría writing, and patient/family have chosen the home health care agency noted Questions: Agency name and contact information: [facility] Patient location post discharge: home [place] What services are requested: Registered Nurse Start date: Responsible MD post discharge contact info: PCP documented in this encounter Medications at Time of Discharge Medication Sig Dispensed Refills Start Date End Date loperamide (Imodium A-D) 2 mg Capsule Take [...] mg Capsule Take by mouth. 01/05/2021 09/20/2021 amoxicillin-clavulanate (Augmentin) 875-125 mg Tablet Take 1 tablet by mouth 2 times daily for 3 days. 6 tablet 07/01/2021 07/04/2021 amoxicillin-clavulanate (Augmentin) 875-125 mg Tablet Take 1 tablet by mouth 2 times daily for 3 days. 6 tablet 07/01/2021 07/04/2021 acetaminophen (Tylenol) 325 mg Tablet Take 2 [...] every 6 hours. 30 tablet 07/01/2021 12/28/2021 ciprofloxacin-dexamethas one (Ciprodex) 0.3-0.1 % Drops, SuspensionIndications:Ca ncer of temporal bone,Postoperative examination,S/P tympanoplasty,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 Place 5 drops in ear(s) 2 times daily. Start this tomorrow after surgery on the operated ear and use until your follow-up. 10 mL 3 07/01/2021 08/18/2021 documented as of this encounter Progress Notes * Mayte Beckford, PT - 06/30/2021 10:10 AM EST Physical Therapy Note Visit #2 Patient profile: Suman Warner 66 y/o male admitted on 06/28/[address] 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 OR Procedure: Temporal bone resection, mastoidectomy, parotidectomy left neck dissection, submental flap. Associated symptoms include diminished hearing. Prior history of chronic middle ear disease with otologic surgical history (see PSH). 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 Home set-up: 2 level home Stairs: 4 steps with rail to enter, FOS w/ rail to 2nd level of home. Tub shower w/ grab bars. Baseline Mobility: Independent & working Precautions/Special Considerations: Keep head neutral , no turning head to Right. Ambulate every shift/AAT, up with assistance post-op, regular diet. [place], hearing aide R ear. Corneal abrasion L eye with tearing and report of blurred vision post-op, usually wears glasses/contact. Mobility and Positioning Recommendations: ?? Pt. should utilize supervision of staff for ambulation and transfers : with [facility] staff over weekend until d/c. ?? Please encourage up to chair for meal times as able. ?? Pt encouraged to ambulate frequently with staff, getting into the bathroom for toileting and walking out in the mosley. Subjective: ???Can I walk again this afternoon??? [Mobility tech to help mobilize in PM] Objective: Pt seen for follow up of eval & he's met goals, cleared PT. Pain: no c/o's except when I move my head : reminded not to turn R per order/keep head neutral. Cardiopulmonary: HR: 64 bpm SpO2: 98 % RA Transfers: Sit >< Stand: independent Up in BR standing @ sink bathing w/ RN supervision. Gait: Distance: 200' off unit towards stairs over mall area. Device used: none Level of assist: Stand-by supervision Gait mechanics: steady, reciprocal, good tamera, independent Stairs: Climbed up/down FOS with railing without any issues. Balance: Sitting: Normal- sitting EOB (I) & able to cross LE in figure 4 pattern to don socks Standing Dynamic / Gait: Normal- (I) ambulator Education: patient encouraged post-op activity but reminded to ask for staff assistance with lines. Pt was left in recliner chair with call sifuentes within reach and seat alarm in place. Patient status, treatment, and mobility recommendations have been discussed with nursing. Assessment: Pt was seen today for physical therapy evaluation. POD#2 ENT surgery with corneal abrasion occurring in PACU so eyes watering and didn't have glasses/contact in other eye. L facial edema and incision with [address] OOB more and tolerating upright activity better today - walking & climbing stairs. 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 will be home during vacation week so available to help him as needed. The pt would benefit from ongoing mobility with staff supervision & one more therapy visit while in the hospital to progress independence with functional abilities. Plan: Therapy Frequency (PT): other (see comments) (goals met, no PT needs, amb w/ [facility] staff). Goals met. No further PT needs. Amb with mob finishing technician this afternoon and nursing over weekend. Discharge Recommendations: Anticipated Discharge Disposition (PT): home when medically ready for hospital discharge. Consult Recommendations: No other consults recommended at this time. Equipment needs: Anticipated Equipment Needs at Discharge (PT): None Goals: To be achieved by 07-01-21: GOALS MET 1. Pt. to perform bed mobility with modified independence. 2. Pt. to perform sit >< stand transfers independently. 3. Pt. to ambulate 200 feet independently , steady, no LOB, assess if need for any device. 4. Pt. to ambulate up/down 3-4 step/stairs using one rail with modified independence to enter home. 5. Pt will tolerate activity progression with stable vital signs & stable pain levels. Thank you for this consult. MAYTE BECKFORD PT Pager: [phone] Physical Therapy Inpatient Rehabilitation Department Time IN / OUT: 9:50-10:10 Total Minutes, Physical Therapy: 20 (TE-F) 2016 PT Evaluation Code Rationale: ?? Diagnosis & Pertinent Co-Morbidities, personal factors, and present illness affecting Plan of Care: (see above); Additional personal factors or co- morbidities that impact plan: ?? Total # of Factors: 0 1-2 3+ x ?? Examination of body system impairments, functional limitations and behaviors, and/or participation restrictions. Addressing 1-2 elements Addressing 3 + elements x Addressing 4 + elements ?? Clinical presentation: See assessment above. Stable/Uncomplicated Evolving/Fluctuating Symptoms Unstable/Unpredictable x ?? Clinical decision making of moderate complexity based on pt's functional performance as outlinedin this evaluation. * Anjelica Rivera MD - 06/30/2021 7:25 AM EST OTOLARYNGOLOGY - HEAD & NECK SURGERY DAILY PROGRESS NOTE Name: Suman Warner Age/Sex: 66 y.o. male Attending: Apolinar Hernández MD Hospital Day: 3 2 Days Post-Op Patient ID/Reason for Admission Suman Warner is a 66 y.o. 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 Patient is recovering well. Interval History No events overnight No complaints this AM Patient denies dizziness, has been walking around with PT and has been up in the chair Confirmed corneal abrasion OS with fluorescein yesterday afternoon, increased frequency of erythromycin ointment Vitals Last value 24hr Range Temperature: 36.5 ??C (97.7 ??F) Temp: [36.4 ??C (97.6 ??F)-37.2 ??C (99 ??F)] Heart Rate: 66 Heart Rate: [66-100] Blood Pressure: 139/84 BP: (115-139)/(62-84) Respiratory Rate: 17 Resp: [15-20] SpO2: 94 % SpO2: [94 %-97 %] Intake & Output Intake/Output Summary (Last 24 hours) at 06/30/2021 0725 Last data filed at 06/30/2021 0600 Gross per 24 hour Intake 1400 ml Output 2455 ml Net -1055 ml Physical Exam General: NAD, non-ill appearing Face: Symmetric without dysmorphic features, HB 1 Eyes: EOMI, conjunctiva healthy Ears: Right postauricular incision c/d/i, no evidence of hematoma, skin paddle visible in EAC is pink and well perfused, neck closed with adrienne, c/d/i no evidence of hematoma, left neck MAURO drains with serosanguinous output Nose: Patent nares, grossly normal appearance Oral Cavity/Pharynx: Mucosa is pink, oropharynx symmetric Neck: Soft, trachea midline Chest: Non-labored breathing, regular rate Abdomen: Soft, non-tender Neuro: Alert & oriented, moving extremities x 4 Labs Recent Labs 06/29/21 0040 WBC 11.7* HGB 14.0 HCT 40.6 PLATELET 164 NA 138 K 4.4 CL 103 CO2 24 BUN 14 CREATININE 1.01 GLUCOSE 175 CALCIUM 8.2* Imaging None ASSESSMENT & PLAN Suman Warner is a 66 y.o. male s/p temporal bone resection, mastoidectomy, parotidectomy, leftneck dissection and reconstruction with submental flap, 2 Days Post-Op. Patient continues to recover well. Surgical/Head&Neck: Continue to monitor for flap vitality and nausea Aquaphor to incision daily Neck must remain in neutral position, DO NOT TURN HEAD TO RIGHT PT/OT to see today Ophthalmic: Continue erythromycin ointment 6 times a day while awake (eg. Can give overnight if patient awake/in pain, but no need to wake him up to administer) rephresh gtts prn in between ointment administration for comfort Neurologic: Pain controlled with acetaminophen GREGORY, oxycodone PRN, home fluoxetine Cardiovascular: Statin Pulmonary: Oxygenation on RA Gastrointestinal: Zofran PRN Genitourinary: PPI, tolerating PO Musculoskeletal: IDALIA Fluids/Electrolytes: IDALIA, repleting lytes Nutrition: Regular diet Infectious Disease: WBC trend, Unasyn (06/28-07/03) Hematology: Hemoglobin stable Endocrine: IDALIA Consults: PT/OT Lines: MAURO drain x2 left neck Prophylaxis: SQH, SCD, ambulation, PPI Disposition: NSCU status, Attempt Cardiopulmonary Resuscitation - Inpatient Discharge: Plan for d/c likely 07/02- pending course; Needs VNA for wound care and drains; Follow-up ENT TBD Anjelica Rivera MD, PGY1 06/30/21 7:25 AM ENT Team Pager: [phone] Associated attestation - Apolinar Hernández MD - 06/30/2021 5:47 PM EST Otolaryngology Attending Physician Addendum I have seen and examined the patient and reviewed the resident's history and I agree with the details as written. The assessment and plan were formulated in discussion with me and I agree with them as documented. Apolinar Hernández MD Otology / Neurotology Otolaryngology - Head & Neck Surgery [facility] * Mayte Beckford, PT - 06/29/2021 12:10 PM EST Physical Therapy Evaluation Patient profile: Suman Warner 66 y/o male admitted on 06/28/[address] 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 OR Procedure: Temporal bone resection, mastoidectomy, parotidectomy left neck dissection, submental flap. Associated symptoms include diminished hearing. Prior history of chronic middle ear disease with otologic surgical history (see PSH). Patient with the following active problems: Past Medical History: Diagnosis Date ??? GERD (gastroesophageal reflux disease) 02/06/2011 ??? Nocturia Past Surgical History: Procedure Laterality Date ??? PRG SOMATOSENSORY TEST, ANY/ALL PER. NERVES, TRUNK OR HEAD N/A 03/31/2021 FACIAL NERVE MONITORING, SETUP PERIPHERAL (WRVU 0.54) performed by Apolinar Hernández MD at [facility] MAIN OR ??? PRG SOMATOSENSORY TEST, ANY/ALL PER. NERVES, TRUNK OR HEAD Left 06/28/2021 FACIAL NERVE MONITORING, SETUP PERIPHERAL (WRVU 0.54) performed by Apolinar Hernández MD at [facility] OR ??? PRO ADJ TISS TRANSFER/REARRANGEMENT ANY AREA 30.1-60 SQCM Left 06/28/2021 ADJACENT TISSUE TRANSFER OR REARRANGEMENT; 30.1 TO 60.0 SQ CM, HEAD/NECK (WRVU 12.65) performed by Jose D Hoang MD at [facility] OR ??? PRO COLONOSCOPY, BIOPSY 10/09/2012 COLONOSCOPY FLEXIBLE, WITH BX performed by Xiang Owen MD at [facility] ENDOSCOPY ??? PRO EXC PAROTD, TOTAL, DISSECT 5TH NERV Left 06/28/2021 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, TOTAL, WITH DISSECTION AND PRESERVATION OF FACIAL NERVE(WRVU 19.53) performed by Jose D Hoang MD at [facility] OR ??? PRO MASTOIDECTOMY, COMPLETE Left 06/28/2021 MASTOIDECTOMY, COMPLETE (WRVU 12.56) performed by Apolinar Hernández MD at [facility] OR ??? PRO MICROSURG TECHNIQUES, REQ OPER MICROSCOPE Left 03/31/2021 MICROSCOPE USE (WRVU 3.46) performed by Apolinar Hernández MD at [facility] OR ??? PRO MICROSURG TECHNIQUES, REQ OPER MICROSCOPE N/A 06/28/2021 MICROSCOPE USE (WRVU 3.46) performed by Apolinar Hernández MD at [facility] OR ? ? PRO MUSCLE MYOCUTANEOUS/FASCIOUCUTANEOUS FLAP HEAD&NECK W/NAMED VASC PEDCL Left 06/28/2021 FLAP, MYOCUTANEOUS OR FASCIOCUTANEOUS, HEAD & NECK W NAMED VASC PEDICLE performed by Jose D Hoang MD at [facility] OR ??? PRO REMOVAL NODES, NECK, CERV MOD RAD Left 06/28/2021 @CERVICAL LYMPHADENECTOMY (MODIFIED RADICAL NECK DISSECTION) (WRVU 23.95) performed by Jose D Hoang MD at [facility] OR ??? PRO RESECT TEMPORAL BONE, DISC INSPECTOR APPRCH Left 06/28/2021 @RESECTION TEMPORAL BONE, EXTERNAL APPROACH (WRVU 37.42) performed by Apolinar Hernández MD at [facility] PRO ??? PRO TYMPANOPLASTY Left 03/31/2021 TYMPANOPLASTY (WRVU 10.05) performed by Apolinar Hernández MD at [facility] MAIN OR ??? PRO UPPER GI ENDOSCOPY, BIOPSY 03/20/2011 UPPER GASTROINTESTINAL ENDOSCOPY,WITH BIOPSY SINGLE OR MULTIPLE performed by JORDAN RAMOS at [facility] ENDOSCOPY Active Non-Hospital Problems Diagnosis ??? Viral warts ??? Diarrhea ??? Chilblains ??? Visit for suture removal ??? Nevus ??? Dizziness ??? GERD (gastroesophageal reflux disease) ??? Chronic serous otitis media ??? Dysplastic nevus ??? Atypical nevus ??? 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 Home set-up: 2 level home Stairs: 4 steps with rail to enter, FOS w/ rail to 2nd level of home. Tub shower w/ grab bars. Baseline Mobility: Independent & working Precautions/Special Considerations: Keep head neutral , no turning head to Right. Ambulate every shift/AAT, up with assistance post-op, regular diet. [place], hearing aide R ear. Corneal abrasion L eye with tearing and report of blurred vision post-op, usually wears glasses/contact. Mobility and Positioning Recommendations: ?? Pt. should utilize CGA close supervision of staff for ambulation and transfers : with [facility] staff. ?? Please encourage up to chair for meal times as able. ?? Pt encouraged to ambulate frequently with staff, getting into the bathroom for toileting and walking out in the mosley. Subjective: ???I've not been out of bed since surgery?? Objective: Pt seen for evaluation today. Pain: headache earlier now improved Cardiopulmonary: HR: 82 bpm SpO2: 96 % RA BP: 115/69 mmHg Mental Status: alert, oriented to person, place, and time Vision: eyes watering corneal abrasion L eye Unable to wear glasses and doesn't have contact in R eye(dec vision today). Skin: edema and surgical area L ear and neck with 2 MAURO drains. Incision w/ adrienne behind L ear. Musculoskeletal: ROM: moving UE's and LE's WFL, able to cross leg into figure 4 style to don sock on foot. Strength: WFL, able to stand and ambulate. Sensation: intact Bed Mobility: Supine > Sit: HOB raised all way up and moved to L side of bed by pulling on bedrailing, supervised. May need to assess from flat bed. Transfers: Sit >< Stand: CGA from low bed surface, able to lower into chair reaching with R UE for armrest. Able to scoot self back in seat of chair. Bed to Chair: CGA. Gait: Distance: 150' around [facility] [place] Device used: none, manual/hand-hold Level of assist: CGA x 2 Gait mechanics: slow & cautious, steady, first walk post-op Stairs: not assessed, has 4 to enter home and FOS to 2nd level of home (bedrooms). Balance: Sitting: Normal- sitting EOB (I) & able to cross LE in figure 4 pattern to don socks Standing Dynamic / Gait: GOOD- first time up walking post-op, no device, hand-hold/CGA. Education: patient has been educated on Safety and Role of therapy, encouraged post-op activity butreminded to ask for staff assistance with lines. Pt was left in recliner chair with call sifuentes within reach and seat alarm in place. Patient status, treatment, and mobility recommendations have been discussed with nursing. Assessment: Pt was seen today for physical therapy evaluation. POD#1 ENT surgery with corneal abrasion occurring in PACU so eyes watering and didn't have glasses/contact in other eye. L facial edema and incision with [address] Not been OOB post-op, first time OOB used bed features so HOB raised all way. Feeling lightheaded sitting up but then sat EOB and transitioned well to stand, marched in place, and then walked in mosley with assistance for balance. Tolerant of upright activity and sat in chair after walking. 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 will be home during vacation week so available to help him as needed. The pt would benefit from ongoing mobility with staff supervision & one more therapy visit while in the hospital to progress independence with functional abilities. Plan: Therapy Frequency (PT): 1-2 more times for balance training, bed mobility training, gait training, stair training, transfer training and any other d/c needs. Patient/family understand and agreewith plan. Discharge Recommendations: Anticipated Discharge Disposition (PT): home when medically ready for hospital discharge. Consult Recommendations: No other consults recommended at this time. Equipment needs: Anticipated Equipment Needs at Discharge (PT): None Goals: To be achieved by 07-01-21: 1. Pt. to perform bed mobility with modified independence. 2. Pt. to perform sit >< stand transfers independently. 3. Pt. to ambulate 200 feet independently , steady, no LOB, assess if need for any device. 4. Pt. to ambulate up/down 3-4 step/stairs using one rail with modified independence to enter home. 5. Pt will tolerate activity progression with stable vital signs & stable pain levels. Thank you for this consult. MAYTE BECKFORD, PT Pager: [phone] Physical Therapy Inpatient Rehabilitation Department Time IN / OUT: 11:35-12:08 Total Minutes, Physical Therapy: 33 (EV) 2017 PT Evaluation Code Rationale: ?? Diagnosis & Pertinent Co-Morbidities, personal factors, and present illness affecting Plan of Care: (see above); Additional personal factors or co- morbidities that impact plan: ?? Total # of Factors: 0 1-2 3+ x ?? Examination of body system impairments, functional limitations and behaviors, and/or participation restrictions. Addressing 1-2 elements Addressing 3 + elements x Addressing 4 + elements ?? Clinical presentation: See assessment above. Stable/Uncomplicated Evolving/Fluctuating Symptoms Unstable/Unpredictable x ?? Clinical decision making of moderate complexity based on pt's functional performance as outlinedin this evaluation. * Caridad Sifuentes MD - 06/29/2021 7:49 AM EST OTOLARYNGOLOGY - HEAD & NECK SURGERY DAILY PROGRESS NOTE Name: Suman Warner Age/Sex: 66 y.o. male Attending: Apolinar Hernández MD Hospital Day: 2 1 Day Post-Op Patient ID/Reason for Admission Suman Warner is a 66 y.o. 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 Patient is recovering well. Interval History No events overnight No complaints this AM Patient denies dizziness but has not yet gotten out of bed Concern for corneal abrasion in PACU Vitals Last value 24hr Range Temperature: 37.2 ??C (99 ??F) Temp: [36.2 ??C (97.2 ??F)-37.2 ??C (99 ??F)] Heart Rate: (!) 105 Heart Rate: [74-105] Blood Pressure: (!) 147/92 BP: (139-164)/(84-96) Respiratory Rate: 14 Resp: [12-16] SpO2: 96 % SpO2: [95 %-100 %] Intake & Output Intake/Output Summary (Last 24 hours) at 06/29/2021 0752 Last data filed at 06/29/2021 0527 Gross per 24 hour Intake 6070 ml Output 2260 ml Net 3810 ml Physical Exam General: NAD, non-ill appearing Face: Symmetric without dysmorphic features, HB 1 Eyes: EOMI, conjunctiva healthy Ears: Right postauricular incision c/d/i, no evidence of hematoma, skin paddle visible in EAC is pink and well perfused, neck closed with adrienne, c/d/i no evidence of hematoma, left neck MAURO drains with serosanguinous output Nose: Patent nares, grossly normal appearance Oral Cavity/Pharynx: Mucosa is pink, oropharynx symmetric Neck: Soft, trachea midline Chest: Non-labored breathing, regular rate Abdomen: Soft, non-tender Neuro: Alert & oriented, moving extremities x 4 Labs Recent Labs 06/29/21 0040 WBC 11.7* HGB 14.0 HCT 40.6 PLATELET 164 NA 138 K 4.4 CL 103 CO2 24 BUN 14 CREATININE 1.01 GLUCOSE 175 CALCIUM 8.2* Imaging None ASSESSMENT & PLAN Suman Warner is a 66 y.o. male s/p temporal bone resection, mastoidectomy, parotidectomy, leftneck dissection and reconstruction with submental flap, 1 Day Post-Op. Patient continues to recoverwell. Surgical/Head&Neck: Continue to monitor for flap vitality and nausea Aquaphor to incision daily Neck must remain in neutral position, DO NOT TURN HEAD TO RIGHT PT/OT to see today Neurologic: Pain controlled with acetaminophen GREGORY, oxycodone PRN, home fluoxetine Cardiovascular: Statin Pulmonary: Oxygenation on RA Gastrointestinal: Zofran PRN Genitourinary: PPI, tolerating PO Musculoskeletal: IDALIA Fluids/Electrolytes: IDALIA, repleting lytes Nutrition: Regular diet Infectious Disease: WBC trend, Unasyn (06/28-07/03; ophthalmic drops per anesthesia in setting of corneal abrasion Hematology: Hemoglobin stable Endocrine: IDALIA Consults: PT/OT Lines: MAURO drain x2 left neck Prophylaxis: SQH, SCD, ambulation, PPI Disposition: NSCU status, Attempt Cardiopulmonary Resuscitation - Inpatient Discharge: Plan for d/c TBD; Needs VNA for wound care and drains; Follow-up ENT TBD Caridad Sifuentes MD, PGY1 06/29/21 7:52 AM ENT Team Pager: [phone] Associated attestation - Apolinar Hernández MD - 06/29/2021 4:24 PM EST Otolaryngology Attending Physician Addendum I have seen and examined the patient and reviewed the resident's history and I agree with the details as written. The assessment and plan were formulated in discussion with me and I agree with them as documented. Apolinar Hernández MD Otology / Neurotology Otolaryngology - Head & Neck Surgery [facility] * Ru Frazier MD - 06/29/2021 3:30 AM EST Images from the original note were not included. OTOLARYNGOLOGY - HEAD & NECK SURGERY POST OP CHECK Name: Suman Warner Age/Sex: 66 y.o. male Attending: Apolinar Hernández MD Hospital Day: 2 1 Day Post-Op Patient ID/Reason for Admission Suman Warner is a 66 y.o. 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 Interval History Surgery: Temporal bone resection, mastoidectomy, parotidectomy left neck dissection, submental flap Procedure(s): @RESECTION TEMPORAL BONE, EXTERNAL APPROACH (WRVU 37.42) MASTOIDECTOMY, COMPLETE (WRVU 12.56) FACIAL NERVE MONITORING, SETUP PERIPHERAL (WRVU 0.54) MICROSCOPE USE (WRVU 3.46) @CERVICAL LYMPHADENECTOMY (MODIFIED RADICAL NECK DISSECTION) (WRVU 23.95) FLAP, MYOCUTANEOUS OR FASCIOCUTANEOUS, HEAD & NECK W NAMED VASC PEDICLE 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, TOTAL, WITH DISSECTION AND PRESERVATION OF FACIAL NERVE(WRVU 19.53) ADJACENT TISSUE TRANSFER OR REARRANGEMENT; 30.1 TO 60.0 SQ CM, HEAD/NECK (WRVU 12.65) Subjective/Events: Patient denies fever, chills, chest pain, shortness of breath, dizziness, headache, abdominal pain, nausea, vomiting, numbness, tingling. Pain well-controlled. Vitals Last value 24hr Range Temperature: 37.2 ??C (99 ??F) Temp: [36.1 ??C (97 ??F)-37.2 ??C (99 ??F)] Heart Rate: (!) 105 Heart Rate: [73-105] Blood Pressure: (!) 147/92 BP: (139-164)/(84-102) Respiratory Rate: 14 Resp: [12-16] SpO2: 96 % SpO2: [95 %-100 %] Intake & Output Intake/Output Summary (Last 24 hours) at 06/29/2021 0510 Last data filed at 06/29/2021 0400 Gross per 24 hour Intake 6070 ml Output 2210 ml Net 3860 ml Physical Exam General: NAD, non-ill appearing Eyes: Left eye irritated from PACU Ears: L ear flap appears WWP. Incision posterior to ear well approximated. Nose: Patent nares, grossly normal appearance Oral Cavity/Pharynx: Mucosa is pink, oropharynx symmetric Neck: Soft, trachea midline Chest: Unlabored breathing, regular rate Neuro: Alert & oriented, moving extremities x 4, facial nerve intact Drain Output: Drain #1 30cc. Drain #2 25cc (Both serosanguinous) Labs Recent Labs 06/29/21 0040 WBC 11.7* HGB 14.0 HCT 40.6 PLATELET 164 NA 138 K 4.4 CL 103 CO2 24 BUN 14 CREATININE 1.01 GLUCOSE 175 CALCIUM 8.2* Imaging No post-imaging ASSESSMENT & PLAN Suman Warner is a 66 y.o. male s/p Procedure(s): @RESECTION TEMPORAL BONE, EXTERNAL APPROACH (WRVU 37.42) MASTOIDECTOMY, COMPLETE (WRVU 12.56) FACIAL NERVE MONITORING, SETUP PERIPHERAL (WRVU 0.54) MICROSCOPE USE (WRVU 3.46) @CERVICAL LYMPHADENECTOMY (MODIFIED RADICAL NECK DISSECTION) (WRVU 23.95) FLAP, MYOCUTANEOUS OR FASCIOCUTANEOUS, HEAD & NECK W NAMED VASC PEDICLE 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, TOTAL, WITH DISSECTION AND PRESERVATION OF FACIAL NERVE(WRVU 19.53) ADJACENT TISSUE TRANSFER OR REARRANGEMENT; 30.1 TO 60.0 SQ CM, HEAD/NECK (WRVU 12.65). Patient is doing well postoperatively. Continue with current care plan. - Erythromycin ointment for left eye abrasion __ Ru Frazier MD, PGY1 06/29/21 5:10 AM ENT Team Pager: [phone] * Gavi Padron RN - 06/28/2021 9:10 AM EST 2342: Suman Warner arrives from OR 10 on bed to PACU 15. Placed patient on monitor with parameters adjusted to be appropriate for patient with alarms on and active. 06/29/2021 0050: A-line highly positional and difficult to draw blood from line. A-line removed. Blood drawn and sent for AM labs. 0125: Patient's eyes both appear swollen, L eye is reddened and patient reports it feeling scratchy. Paged anesthesia. 0130: Anesthesia at bedside assessing patient's eye. Plans for eye drops. Patient meets PACU discharge criteria. Awaiting callback from [facility] nurse to give report. documented in this encounter H&P Notes * Jayne Darby MD - 06/28/2021 6:39 AM EST OTOLARYNGOLOGY - HEAD & NECK SURGERY INTERVAL H&P NOTE Name: Suman Warner Age/Sex: 66 y.o. male Attending: Jose D Hoang MD Hospital Day: 1 Interval History Please see clinic/scanned H&P dated 04/20/[address] Hernández, Dr. Hoang, and Dr. Darby and pre-operative exam 06/14/2021 in media. 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 COVID Test 06/27/2021 in outside media documents as Negative. There have been no changes to his history. Physical Exam Patient Vitals for the past 24 hrs: Temp Pulse Resp BP SpO2 06/28/21 0626 36.1 ??C (97 ??F) 73 16 (!) 147/102 99 % Gen: No acute distress, alert and answers questions appropriately CV: Regular rate Pulm: Unlabored breathing Abd: Abdomen soft and non-tender Ext: No peripheral edema ASSESSMENT & PLAN Plan for cervical exposure with vascular control followed by subtotal temporal bone resection with labyrinthectomy, cochlectomy, mobilization of facial nerve, followed by superficial parotidectomy, neck dissection, and flap coverage, LEFT Consent signed, dated, placed in chart Ok to proceed with scheduled operation. Jayne Darby MD, PGY5, Pager [phone] 06/28/21 6:39 AM ENT Team Pager: [phone] * Jayne Darby MD - 06/28/2021 6:38 AM EST OTOLARYNGOLOGY - HEAD & NECK SURGERY INTERVAL H&P NOTE Name: Suamn Warner Age/Sex: 66 y.o. male Attending: Apolinar Hernández MD Hospital Day: 1 Interval History Please see clinic/scanned H&P dated 04/20/[address] Hernández, Dr. Haong, and Dr. Darby and pre-operative exam 06/14/2021 in media. 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 COVID Test 06/27/2021 in outside media documents as Negative. There have been no changes to his history. Physical Exam Patient Vitals for the past 24 hrs: Temp Pulse Resp BP SpO2 06/28/21 0626 36.1 ??C (97 ??F) 73 16 (!) 147/102 99 % Gen: No acute distress, alert and answers questions appropriately CV: Regular rate Pulm: Unlabored breathing Abd: Abdomen soft and non-tender Ext: No peripheral edema ASSESSMENT & PLAN Plan for cervical exposure with vascular control followed by subtotal temporal bone resection with labyrinthectomy, cochlectomy, mobilization of facial nerve, followed by superficial parotidectomy, neck dissection, and flap coverage, LEFT Consent signed, dated, placed in chart Ok to proceed with scheduled operation. Jayne Darby MD, PGY5, Pager [phone] 06/28/21 6:37 AM ENT Team Pager: [phone] Associated attestation - Apolinar Hernández MD - 06/28/2021 7:04 AM EST Otolaryngology Attending Physician Addendum I have seen and examined the patient and reviewed the resident's history and I agree with the details as written. The assessment and plan were formulated in discussion with me and I agree with them as documented. Apolinar Hernández MD Otology / Neurotology Otolaryngology - Head & Neck Surgery [facility] documented in this encounter Miscellaneous Notes * Initial Assessments - Maria D Reyes OTA - 07/01/2021 1:38 PM EST Occupational Therapy Treatment notes #2 Patient profile: Suman Warner is a 66 y.o. 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 Social History: Patient lives with his . She is a school bus technician so will be home all next week for school vacation. Home Setup: 4 onto porch. Full flight of stairs to full bathroom and bedrooms. Half bath first floor. Tub/shower with grab bar upstairs DME: none Baseline ADL/Mobility: Independent with ADLs, IADLs. 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 2 Left MAURO neck drains. Telemetry. Corneal abrasion L eye sustained during surgery. R hearing aid Subjective: I dont have any concerns about going home. Objective: Seen today for OT treatment intervetion. Cognitive Status/Behavior: ?? Behavior / Mood: alert and cooperative ?? Alert and oriented to: person, place, time and situation ?? Follows commands: 1 step and 100% of the time ?? Attention: WFL ?? Safety awareness: WFL Vision & Perception: ?? corrective lenses time analysis clerk either contacts or glasses. Sustained L corneal abrasion during surgery, L eye red, watery and blurry. Right hearing aid. Activities of Daily Living & Functional Mobility: Pt able to lorenzo and doff pants, preformed figure four able to lean forward then stand to hike and tie Mobilized around unit 2x ~300 ft with stand by assist no LOB no SOB noted Spent time discussing home set up, recommended that pt have seat for shower Discussed energy conservation and pacing for daily self care tasks at home Vitals: VSS per monitor Pain: No report of pain Education: patient has been educated on Role of occupational therapy/rehabilitation, Transfers, ADL, Positioning, Safety, Functional Mobility, Activity pacing/Energy conservation, Balance, Recommendations and Discharge planning and verbalizes and demonstrates understanding. Patient status, treatment, and mobility recommendations discussed with nursing. Assessment: Pt seen for continuation of POC. Pt pleasant and alert, preforming ADL tasks and fuctional mobility with SBA, spent time discussing home set up, recommend shower chair, otherwise pt has all needs and assist at home. Equipment needs at discharge: Shower chair Anticipated Discharge Disposition: home Other Recommendations: ophthalmology Goals: To be achieved by 07/06/21. Pt will verbalize understanding of energy conservation techniques by citing 2-3 examples for ADLs Pt will stand sink level for 2-3 light grooming tasks with supervision Pt will demonstrate compensation techniques for ADLs with neck and eye deficits Plan: OT: Therapy Frequency (OT): 1-3 more times Total Minutes, Occupational Therapy: 21 (1x theract) Pager: [phone] ZACHARY Orozco 07/01/2021 Occupational Therapy Rehabilitation Department * Plan of Care - Olivia Mcgowan RN - 06/30/2021 6:33 AM EST OUTCOME EVALUATION NOTE: OUTCOME SUMMARY: Patient is ambulating to the bathroom and around the room with standby assistance. Patient remains hemodynamically stable on room air. Patients Left ear flap remains dusky in appearance and warm to touch. Patient continues to complain of intermittent pain in the Left eye due to the abrasion but pain is well controlled with scheduled tylenol. PLAN MOVING FORWARD: Continue monitoring skin graft every 4 hours Manage pain in the left eye D/C planning INDIVIDUALIZED FALL PREVENTION INTERVENTIONS: Assistance [level of assistance required for transfers and ambulation]: Standby assistance Supervision [direct monitoring required during toileting and ADLs]: cotinuous Surveillance [continuous indirect monitoring]: Continuous telemetry monitoring Patient-specific fall prevention interventions for sensory deficits provided, if applicable: [X] Yes * Initial Assessments - Zoe Barboza, OT - 06/29/2021 12:06 PM EST Occupational Therapy Evaluation Patient profile: Suman Warner is a 66 y.o. 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 Past Medical History: Diagnosis Date ??? GERD (gastroesophageal reflux disease) 02/06/2011 ??? Nocturia Past Surgical History: Procedure Laterality Date ??? PRG SOMATOSENSORY TEST, ANY/ALL PER. NERVES, TRUNK OR HEAD N/A 03/31/2021 FACIAL NERVE MONITORING, SETUP PERIPHERAL (WRVU 0.54) performed by Apolinar Hernández MD at [facility] MAIN OR ??? PRG SOMATOSENSORY TEST, ANY/ALL PER. NERVES, TRUNK OR HEAD Left 06/28/2021 FACIAL NERVE MONITORING, SETUP PERIPHERAL (WRVU 0.54) performed by Apolinar Hernández MD at [facility] MAIN OR ??? PRO ADJ TISS TRANSFER/REARRANGEMENT ANY AREA 30.1-60 SQCM Left 06/28/2021 ADJACENT TISSUE TRANSFER OR REARRANGEMENT; 30.1 TO 60.0 SQ CM, HEAD/NECK (WRVU 12.65) performed by Jose D Hoang MD at [facility] OR ??? PRO COLONOSCOPY, BIOPSY 10/09/2012 COLONOSCOPY FLEXIBLE, WITH BX performed by Xiang Owen MD at [facility] ENDOSCOPY ??? PRO EXC PAROTD, TOTAL, DISSECT 5TH NERV Left 06/28/2021 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, TOTAL, WITH DISSECTION AND PRESERVATION OF FACIAL NERVE(WRVU 19.53) performed by Jose D Hoang MD at [facility] OR ??? PRO MASTOIDECTOMY, COMPLETE Left 06/28/2021 MASTOIDECTOMY, COMPLETE (WRVU 12.56) performed by Apolinar Hernández MD at [facility] OR ??? PRO MICROSURG TECHNIQUES, REQ OPER MICROSCOPE Left 03/31/2021 MICROSCOPE USE (WRVU 3.46) performed by Apolinar Hernández MD at [facility] OR ??? PRO MICROSURG TECHNIQUES, REQ OPER MICROSCOPE N/A 06/28/2021 MICROSCOPE USE (WRVU 3.46) performed by Apolinar Hernández MD at [facility] OR ? ? PRO MUSCLE MYOCUTANEOUS/FASCIOUCUTANEOUS FLAP HEAD&NECK W/NAMED VASC PEDCL Left 06/28/2021 FLAP, MYOCUTANEOUS OR FASCIOCUTANEOUS, HEAD & NECK W NAMED VASC PEDICLE performed by Jose D Hoang MD at [facility] OR ??? PRO REMOVAL NODES, NECK, CERV MOD RAD Left 06/28/2021 @CERVICAL LYMPHADENECTOMY (MODIFIED RADICAL NECK DISSECTION) (WRVU 23.95) performed by Jose D Hoang MD at [facility] MAIN OR ??? PRO RESECT TEMPORAL BONE, DISC INSPECTOR APPRCH Left 06/28/2021 @RESECTION TEMPORAL BONE, EXTERNAL APPROACH (WRVU 37.42) performed by Apolinar Hernández MD at [facility] PRO ??? PRO TYMPANOPLASTY Left 03/31/2021 TYMPANOPLASTY (WRVU 10.05) performed by Apolinar Hernández MD at [facility] MAIN OR ??? PRO UPPER GI ENDOSCOPY, BIOPSY 03/20/2011 UPPER GASTROINTESTINAL ENDOSCOPY,WITH BIOPSY SINGLE OR MULTIPLE performed by JORDAN RAMOS at [facility] ENDOSCOPY Social History: Patient lives with his . She is a school bus technician so will be home all next week for school vacation. Home Setup: 4 onto porch. Full flight of stairs to full bathroom and bedrooms. Half bath first floor. Tub/shower with grab bar upstairs DME: none Baseline ADL/Mobility: Independent with ADLs, IADLs. 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 2 Left MAURO neck drains. Telemetry. Corneal abrasion L eye sustained during surgery. R hearing aid Subjective: I feel okay Objective: Seen today for OT evaluation. Cognitive Status/Behavior: ?? Behavior / Mood: alert and cooperative ?? Alert and oriented to: person, place, time and situation ?? Follows commands: 1 step and 100% of the time ?? Attention: WFL ?? Safety awareness: WFL Vision & Perception: ?? corrective lenses time analysis clerk either contacts or glasses. Sustained L corneal abrasion during surgery, L eye red, watery and blurry. Right hearing aid. Communication: WFL Range of motion, strength, coordination: Hand dominance: right Bilateral UEs are within functional limitations LE limitations: functional Sensation: subjectively intact Activities of Daily Living: Self-feeding: indep Grooming: set up Dressing: able to don L sock using figure 4 seated EOB. Assist with UE due to telemetry wires and MAURO drains Bathing: not formally assessed, anticipate will require at least mod assist Toileting: Transfer: Anticipate hand hold assist x1 Hygiene: Nursing removed timmons at start of session Functional Mobility: Supine to sit: HOB elevated 45 degrees,going to the left, SBA Sit to stand: CGA x2 Ambulation: min hand held assist x2 household distances 150 feet Stand to sit: CGA with cues for arm rests on recliner Sit to supine: N/A, left seated in recliner for lunch Balance: Sitting balance: good Standing balance: good static, did not test dynamic Vitals: At Rest With Activity SpO2 95% 96% Heart Rate 85 82-83 Blood Pressure 115/69 Pain: did not assign number, main c/o is L eye, though he did state L eye felt better after mobilizing Skin: adrienne/incision starting behind top of L eye Education: patient has been educated on Role of occupational therapy/rehabilitation, Transfers, ADL, Positioning, Safety, Functional Mobility, Activity pacing/Energy conservation, Balance, Recommendations and Discharge planning and verbalizes and demonstrates understanding. Patient status, treatment, and mobility recommendations discussed with nursing. Assessment: Pt has been seen for occupational therapy evaluation. Suman Warner presents with the followingperformance skill deficits and client factors: decreased activity tolerance, decreased flexibility / ROM, visual deficits, precautions / bracing and compromised mobility status. These performance deficits have led to activity limitations and participation restrictions in the following areas of occupation: bathing, transfers / mobility, home management and community mobility. Pt tolerated today's session well, hand held assist x2 functional mobility household distances. Pt demonstrates good balance for ADLs. Pt with new corneal abrasion in L eye, will need follow up. Pt would benefit from further inpatient OT interventions to address performance deficits and maximize participation and independence with occupations of daily living. Equipment needs at discharge: None Anticipated Discharge Disposition: home, home with home health Other Recommendations: ?? Utilize upright chair position using bed features or transfer to recliner chair as appropriate with SBA due to visual deficits, ?? ambulate as tolerated ?? Encourage participation in ADL's by providing set up A on tray table and physical assist only asneeded Other Recommendations: ophthalmology Goals: To be achieved by 07/06/21. Pt will be independent with ADLs with AE as needed Pt will be independent all aspects of toileting Pt will be independent functional mobility household distances Pt will verbalize understanding of energy conservation techniques by citing 2-3 examples for ADLs Pt will stand sink level for 2-3 light grooming tasks with supervision Pt will demonstrate compensation techniques for ADLs with neck and eye deficits Plan: OT: Therapy Frequency (OT): 1-3 more times Total Minutes, Occupational Therapy: 41 2016 OT Evaluation Code Rationale: ?? Diagnosis & Pertinent Co-Morbidities affecting Plan of Care: see PMHx ?? Occupational Profile & Client History: Brief Expanded Extensive x ?? Assessment of Occupational Performance: 1-3 performance deficits 3-5 performance deficits x 5 + performance deficits ?? Clinical Decision Making: Low Moderate High x Clinical decision making of moderate complexity using standardized patient assessment instrument and measurable assessment of functional outcome. Pager: [phone] Zoe Barboza OT 06/29/2021 Occupational Therapy Rehabilitation Department * Initial Assessments - Phyllis Baez RN - 06/29/2021 8:55 AM EST Office of Care Management Initial Assessment Phyllis Baez RN reviewed record and discussed patient with Care Team. Source of Information: Team, bedside nurse, medical record, and Patient, Chart medical facilities section director CM Introduced self/reviewed role; services accepted. Reason for Hospitalization: Planned surgery Covid Vaccination Status: 1st, 2nd & booster (Group Therapy Records;also had PNA VAX this year) Last COVID test: 06/27 at [facility] Past medical History: Past Medical History: Diagnosis Date ??? GERD (gastroesophageal reflux disease) 02/06/2011 ??? Nocturia Hospitalizations Within the Past 30 Days: no previous admission in last 30 days Current Decision-Making Capacity: Self Advance Care Planning: Attempt Cardiopulmonary Resuscitation - Inpatient <no information> -Advanced Directive: Yes, not on file (pt brought in with him) Who is your DPOA- HC?: Spouse Current Coping/Education/Information Needs: going home post neck dissection, MAURO drains in place Current Functional Ability: Independent Functional Status Prior to Admission: Independent Prior iADLS: Independent with all iADLs Home Environment: Others in the home: spouse. Current Living Arrangements: home/apartment/condo. Accessibility Concerns:4 railed STEthen two story FOS railed to bedroom level. Current DME: respiratory supplies Has Cpap (with pt) from [facility] Address confirmed as: [address] [facility] [address] Social & Family Supports: All names listed below confirmed with patient as current and correct Extended Emergency Contact Information Primary Emergency Contact: Raven Warner Mobile Relation: Spouse Current Care Provided by: self Provides Primary Care For: no one Caregiver if needed: spouse Quality of Family relationships: helpful, involved, supportive Community Resources being provided currently: none Behavioral Health History: no Substance Use/Abuse confirmed: Social History Tobacco Use Smoking Status Never Smoker Smokeless Tobacco Never Used 0 No problems reported 1-2 Low level 3-5 Moderate level 6-8 Substantial level 9- 10 Severe level Health/Prescription Coverage: Primary Insurance: MEDICARE Payor: MEDICARE / Plan: MEDICARE PART A & B / Product Type: *No Product type* / Secondary Insurance: [employer] MEDICARE SUPPLEMENT Prescription Coverage: Yes Preferred Pharmacy: [id number] AT [address] [address] [place] Status: Patient is a : No Primary Care Provider: Ilya Medina MD [phone] Patient/Caregiver Goals of Treatment: return home with VNA support, Potential Needs for Transition of Care: home health care (incision assessment, MAURO drain care) Agency Referrals: The Patient has been provided a list of Home Health Agencies/DME vendors which serve their preferred geographic area. A letter describing our affiliations was reviewed with them and they were educated about their right to choose where referrals are placed. Provided patient with [facility] Star Quality Rating for Home care hand out. Patient requests referral to [facility] PHONE: [phone] FAX: [phone]. Expected date of discharge: 06/30/21. Referral routed to the Housing Property Manager for matching with agency/vendor and to provide any required information. Transportation: no concerns Transportation Anticipated: car, drives self, family or friend will provide Concerns to be Addressed: discharge planning Assessment: Patient is admitted to ENT service for SCCA L ear s/p temporal bone resection, parotidectomy, neck dissection with submental flap Plan: Pt may have [address] upon discharge per team. Met with pt; he is swallowing breakfast / pills okay. Agrees with referral to long-term from [facility]. will be transporting pt home; gave CM contact number and will continue to follow. A member of the Care Management team will continue to monitor progress, follow for continuity of care and assist with transition of care planning. 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 Gross pathologic exam pertinent for tumor invading the hypotympanum, lymphadenopathy in the superficial and deep parotid glands. Preserved marginal mandibular, spinal accessory, and all branches of facial nerve. Sacrificed great auricular nerve. Reconstruction with submental flap. Caridad Sifuentes MD 06/28/2021 Associated attestation - Apolinar Hernández MD - 06/29/2021 3:02 PM EST Otolaryngology Attending Physician Addendum I have seen and examined the patient and reviewed the resident's history and I agree with the details as written. The assessment and plan were formulated in discussion with me and I agree with them as documented. 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 Left Neck Dissection Level IB, IIA, & III 2. Left Superficial Inferior Lobe Parotidectomy 3. Left Submental Myocutaneous Flap (5 cm x 8 cm) 4. Left Neck Adjacent Tissue Rearrangement (40 sq cm) Anesthesia: General via Oral ETT Estimated Blood Loss: 150 cc HPI/Surgical Indications: Suman Warner is a 66 y.o. male who presents with SCCa of the LEFT ear. Reports constant otorrhea on the left since Spring 2020. Associated symptoms include diminished hearing. Denies fluctuation in hearing, facial weakness/facial spasm, tinnitus, dizziness/vertigo. Prior history of chronic middle ear disease with otologic surgical history pertinent for Left modifiedradical CWD tymp/mastoid in 1968 ([facility]) for cholesteatoma, Left revision tymp/mastoid-OCR 20 years ago, and Right modified radial CWD tymp/mastoid [place] [address] Linda. Pathology pertinentfor SCCa diagnosed by Dr. Trinidad. PMH pertinent for HTN, HPL, SARITA, GERD, glaucoma, and anxiety. Findings: Surgical Resection with Left Subtotal Temporal Bone Resection in setting of Prior Canal Wall Down Mastoidectomy and Left Superficial Inferior Lobe Parotidectomy performed via post-auricularcombined with cervical approach approach. Tumor noted predominantly along the entire tympanic membrane with extension into the hypotympanum but with no extension into the oval or round window. Lateral skin margins sent and deep margins are drilled bone (not sent) of temporal bone deep to the hypotympanum which easily elevated off the bone. Left Neck Dissection Level IB, IIA, & III performed. Neck dissection pertinent for few palpablenodes especially in Level IB/perifacial region. Preserved Left Facial Nerve (all branches stimulating at end of case), accessory, and hypoglossal nerve. Reconstruction of temporal bone/mastoidectomy defect and closure of ear canal with Left Submental Myocutaneous Flap (5 cm x 8 cm). Flap raise pertinent for initial inadvertent arterial pedicle injury with temporary clips which were removed and perfusion of flap remained with treatment with topical 4% lidocaine. Procedure Description: Patient was brought to the operating room and identified. General anesthesia was induced. Patient was prepped and draped in standard fashion. Timeout was performed. We started by planning a post auricular C shaped incision superiorly extending near the temporalis muscle and then connecting into a neck dissection incision at least 2 fingerbreadths below the angle of the mandible with a planned submental flap skin paddle of 5 cm x 8 cm. This is injected lidocaine with epinephrine. We started by performing this case in conjunction with Dr. Hernández by making a skin incision postauricularly and through the platysma in the neck and then raising a superior subplatysmal flap in the neck and in the mastoid, he identified the temporalis muscle fascia and then elevated the periosteum off of the mastoid. The case then proceeded with the otologic surgical resection with turning of the entire eas forward by making incision through the entirety of the cartilaginous ear canal to do the subtotal temporal bone resection. Please see his operative note for further details. Once the initial resection margins and drum was removed, we then turned attention to performing theleft neck dissection so that we would have vascular exposure at the time he would remove the tissueand tumor that was predominantly in the hypotympanum and work near the sigmoid and carotid. We worked along the anterior border the sternocleidomastoid muscle and began elevating the contents of level 2A and 3 for the neck dissection. We superiorly identified the attachment of the sternocleidomastoid muscle to the mastoid as well as the digastric muscle and inferiorly the omohyoid muscle. We raised a inferior subplatysmal flap as well for better exposure. We then worked identified the accessorynerve and the cervical rootlets began elevating the contents of level 2A and 3 off the floor of theneck by painting off of the internal jugular vein and then using the [place] scissors to circumferentially remove this dina tissue by performing this anterolateral neck dissection off of the carotidsheath contents. This was then sent for permanent pathology. We then began performing the superficial parotidectomy raising a skin flap anteriorly along the SMAS layer to expose the parotid gland. We then worked to mobilize the parotid tail off of the sternocleidomastoid muscle. We then worked by identifying the pes anserinus of the facial nerve which we dissected back towards the stylomastoid foramen since Dr. Hernández had drilled out the facial nerve throughthe vertical segment towards the foramen and had taken off the mastoid tip. We then found the upperand lower division of the facial nerve and began by performing our superficial parotidectomy by tracing out the facial nerve branches and predominantly performed a inferior superficial lobe parotidectomy since the tumor was predominantly in the hypotympanum there was not any direct extension into the parotid radiographically and since superiorly the tumor was not in the epitympanum, we anticipated that there likely would not be as much extension or concern for dina lymphatic drainage into the superior aspect of the parotid near the frontal division. We traced the divisions of the parotid andthen in a broad front mobilized the superficial parotid. We then sent the superficial parotid for permanent pathology and then sent additional parotid tissue of deep lobe tissue around the lower divisions of the facial nerve and the pes anserinus. Facial nerve was stimulating at the end of this dissection with the prass probe. We then mobilized the internal jugular circumferentially as well as the carotid and then placed vessel loops around each of these great vessels so that there would be vascular control if needed during the second part of the otologic portion of the case. The case was then turned back to Dr. Hernández whothen worked to send tissue from the round window of which the frozen pathology was negative for malignancy and then sent tissue along the hypotympanum which was then further drilled for the bony deepmargins. Given the fact that the oval window was clear in the tissue at the round window frozen wasnegative for malignancy, he did not feel the need to perform a extensive cochlectomy or labyrinthectomy. We then evaluated the defect in order to fill the mastoid temporal bone resection cavity as well asoversewing the ear canal closed and decided to use the submental island myocutaneous flap (5 cm x 8cm) for the reconstruction. We started by identifying the facial vein coming off of the internal jugular which we traced as a pedicle and began carefully dissecting the submandibular gland away from the venous pedicle. We similarly also identified the arterial pedicle and as we were working, we initially identified what we thought was a branch of the facial artery to the submandibular gland and placed clips on the artery but then quickly realized that this was actually the submental artery pedicle. We then expeditiously removed the clips and then treated the pedicle and the vasculature with topical 4% lidocaine. We then checked the Doppler signal and noted good arterial flow. We then completed the rest of the careful submandibular gland excision by retracting the mylohyoid muscle up superiorly and preserving the lingual nerve and dividing the duct and then removed pertinent perifacial nodes that we noted while preserving the marginal mandibular nerve. This was all sent for level 1B pathology. We then made the rest of our skin paddle incisions and then in the midline worked identified the anterior belly of the digastric on the left side and its attachment to the mandible as well asthe mylohyoid median raphae. We then divided the attachment of the digastric to the hyoid as well as the attachments of the mylohyoid from the hyoid. We then superiorly dissected through the skin andplatysma and carefully identified the mylohyoid muscle superior to the pedicle. We then used the harmonic scalpel to then make our detaching cuts superiorly of mobilizing the mylohyoid off of the lingual aspect of the mandible. We divided the facial artery and facial vein that was going over the mandible. We then mobilized the flap towards the mastoid cavity and then de-epithelialized the flap except for a small portion that was a circular area to allow for the ear canal closure and monitoring.The flap was then tacked deeply with the mylohyoid muscle filling the mastoid cavity and tacked to the parotid and surrounding tissue with Vicryl sutures. The small skin paddle to close the ear was repaired to the [place] auricle with chromic sutures. Two MAURO drains were then placed, one in the neck a nd one going postauricularly and secured to the skin with silk sutures. The neck was then closed with Vicryl for the deep layers after performing adjacent tissue rearrangement by undermining the neckskin that was remaining after the submental island flap was harvested and adrienne for the skin layer. Patient was then turned back to anesthesia and extubated. All counts were correct. Jayne Darby MD 06/28/2021 Attestation: Case Date: 06/28/2021 - 06/29/2021 I was present and I participated during the entire procedure (does not need to include opening and closing). JOSE D HOANG MD 07/10/2021 * Op Note - Apolinar Hernández MD - 06/28/2021 9:10 AM EST [facility] [place] Patient Name: Suman Warner : [id number] MR#: [id number] Case Date: 06/28/2021 - 06/29/2021 Surgeon: Surgeon(s) and Role: Panel 1: * Apolinar Hernández MD - Primary Panel 2: * Jose D Hoang MD - Primary * Jayne Darby MD - Resident * Caridad Sifuentes MD - Resident Preoperative diagnosis: [id number] 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 Postoperative diagnosis: [id number] 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 Procedure(s) (LRB): @RESECTION TEMPORAL BONE, EXTERNAL APPROACH (WRVU 37.42) (Left) MASTOIDECTOMY, COMPLETE (WRVU 12.56) (Left) FACIAL NERVE MONITORING, SETUP PERIPHERAL (WRVU 0.54) (Left) MICROSCOPE USE (WRVU 3.46) (N/A) @CERVICAL LYMPHADENECTOMY (MODIFIED RADICAL NECK DISSECTION) (WRVU 23.95) (Left) FLAP, MYOCUTANEOUS OR FASCIOCUTANEOUS, HEAD & NECK W NAMED VASC PEDICLE (Left) 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, TOTAL, WITH DISSECTION AND PRESERVATION OF FACIAL NERVE(WRVU 19.53) (Left) ADJACENT TISSUE TRANSFER OR REARRANGEMENT; 30.1 TO 60.0 SQ CM, HEAD/NECK (WRVU 12.65) (Left) Anesthesia: General Estimated Blood Loss: 250 mL Specimens removed during surgery: Intra-Procedure Orders (From admission, onward) Start Ordered 06/28/212039 Specimen to Pathology (Multiple Specimen to Pathology requests panel ) ONE TIME Comments: Left Neck Level 1B Question Answer Comment Clinical History and Diagnosis: [id number] 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 Specimen Source: Left Neck Level 1B Specimen Type: excision Time specimen removed from patient: 8:39 PM Number of tissue samples (in container) 1 06/28/21203806/28/212024 Specimen to Pathology (Multiple Specimen to Pathology requests panel ) ONE TIME Comments: Left Perifacial Node Question Answer Comment Clinical History and Diagnosis: [id number] 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 Specimen Source: Left Perifacial Node Specimen Type: excision Time specimen removed from patient: 8:22 PM Number of tissue samples (in container) 1 06/28/21202206/28/211819 Specimen to Pathology (Multiple Specimen to Pathology requests panel ) ONE TIME Question Answer Comment Clinical History and Diagnosis: [id number] 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 No Biospecimen to store? No 06/28/21182106/28/211739 Specimen to Pathology (Multiple Specimen to Pathology requests panel ) ONE TIME Question Answer Comment Clinical History and Diagnosis: [id number] 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 Specimen Source: LEFT tissue at [facility] Specimen Type: excision Time specimen removed from patient: 5:20 PM Number of tissue samples (in container) 1 Fresh Breast Specimen? No Biospecimen to store? No 06/28/21173906/28/211739 Specimen to Pathology (Multiple Specimen to Pathology requests panel ) ONE TIME Question Answer Comment Clinical History and Diagnosis: [id number] 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 Specimen Source: LEFT tragus Specimen Type: excision Time specimen removed from patient: 5:21 PM Number of tissue samples (in container) 1 Fresh Breast Specimen? No Biospecimen to store? No 06/28/21173906/28/211739 Specimen to Pathology (Multiple Specimen to Pathology requests panel ) ONE TIME Question Answer Comment Clinical History and Diagnosis: [id number] 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 Specimen Source: LEFT neck level 3 Specimen Type: excision Time specimen removed from patient: 5:30 PM Number of tissue samples (in container) 1 Fresh Breast Specimen? No Biospecimen to store? No 06/28/21 1740 06/28/21 174 Specimen to Pathology (Multiple Specimen to Pathology requests panel ) ONE TIME Question Answer Comment Clinical History and Diagnosis: [id number] 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 Specimen Source: LEFT parotid Specimen Type: excision Time specimen removed from patient: 5:32 PM Number of tissue samples (in container) 1 Fresh Breast Specimen? No Biospecimen to store? No 06/28/21 1740 06/28/21 173 Specimen to Pathology (Multiple Specimen to Pathology requests panel ) ONE TIME Question Answer Comment Clinical History and Diagnosis: [id number] 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 Specimen Source: Left neck dissection level 2A Specimen Type: excision Time specimen removed from patient: 4:42 PM Number of tissue samples (in container) 1 Fresh Breast Specimen? No Biospecimen to store? No 06/28/21 1740 06/28/21 1505 Specimen to Pathology (Multiple Specimen to Pathology requests panel ) ONE TIME Comments: OR#[id number], [id number] Question Answer Comment Clinical History and Diagnosis: [id number] 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 Specimen Source: LEFT tissue at round window Specimen Type: biopsy Frozen Section? (click YES and contact Pathology PRIOR to sending) YES, Please perform frozen section Number of tissue samples (in container) 1 Time specimen removed from patient: 3:03 PM 06/28/21 1504 06/28/21 1255 Specimen to Pathology (Multiple Specimen to Pathology requests panel ) ONE TIME Comments: OR#[id number], [id number] Question Answer Comment Clinical History and Diagnosis: [id number] 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 Specimen Source: LEFT anterior canal skin and anterior tympanic membrane, orientation per card. Specimen Type: biopsy Time specimen removed from patient: 12:50 PM Number of tissue samples (in container) 1 06/28/21 1254 06/28/21 1255 Specimen to Pathology (Multiple Specimen to Pathology requests panel ) ONE TIME Comments: OR#[id number], [id number] Question Answer Comment Clinical History and Diagnosis: [id number] 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 Specimen Source: LEFT hypotympanum Specimen Type: biopsy Time specimen removed from patient: 12:50 PM Number of tissue samples (in container) 1 06/28/21 1254 06/28/21 1240 Specimen to Pathology ONE TIME Comments: OR#[id number], [id number]. Question Answer Comment Clinical History and Diagnosis: [id number] 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 Specimen Source: LEFT inferior drum and canal skin, orientation per card. Specimen Type: biopsy Time specimen removed from patient: 12:35 PM Number of tissue samples (in container) 1 06/28/21 1241 06/28/21 1155 Specimen to Pathology (Multiple Specimen to Pathology requests panel ) ONE TIME Question Answer Comment Clinical History and Diagnosis: [id number] 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 Specimen Source: LEFT SUPERIOR MEDIAL MARGIN, ORIENTATION PER CARD Specimen Type: biopsy Time specimen removed from patient: 11:54 AM Number of tissue samples (in container) 1 06/28/21 1154 06/28/21 1125 Specimen to Pathology ONE TIME Comments: OR#[id number], [id number] Question Answer Comment Clinical History and Diagnosis: [id number] 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 Specimen Source: LEFT anterolateral canal margin Specimen Type: biopsy Time specimen removed from patient: 11:01 AM Number of tissue samples (in container) 1 06/28/21 1120 06/28/21 1100 Specimen to Pathology ONE TIME Comments: OR#2, [id number] Question Answer Comment Clinical History and Diagnosis: [id number] 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 Specimen Source: LEFT posterior/lateral mastoid contents Specimen Type: biopsy Time specimen removed from patient: 10:51 AM Number of tissue samples (in container) 1 06/28/21 1058 Drains: Drain/Device Site 06/28/21 2341 Left anterior neck collapsible closed device (Active) Insertion Site suture(s) intact;no hematoma 07/01/21 1142 Drain Device Number 2 07/01/21 1142 Dressing Appearance open to air 07/01/21 1142 Drainage Characteristics/Odor serosanguineous 07/01/21 0800 Drainage Amount scant 06/29/21 0300 Drainage Characteristics/Odor (in device) serosanguineous 07/01/21 1142 Dressing open to air 07/01/21 0800 General Output (mL) 20 07/01/21 1142 Surgical Closure: Primary Closure - skin incision is closed but with open spaces for wires, jarad, drains or other devices Disposition: awakened from anesthesia, extubated and taken to the recovery room in a stable condition, having suffered no apparent untoward event. Condition: doing well without problems (Please see the Surgical Encounter Summary for any Implant and Specimen details pertinent to this patient.) HPI/Surgical Indications: History of chronic ear disease status post distant history of modified radical canal wall down tympanomastoidectomy now with [id number] SCCa of the Middle Ear/Tympanic Membranein the Hypotympanum. Procedure Description: This was a combined case. See Dr. Hoang's separate dictation for the associated parotidectomy, left neck dissection and subsequent flap reconstruction. The patient was taken to the main operating room and laid supine on the operating room table. Proper informed consent was ensured, and the patient was positively identified. Once general anesthesia was established, the table was rotated 180 degrees. The patient was positioned supine on the table with the head turned to the right to expose the left ear. A formal surgical timeout was performed withall in attendance ensuring proper site, side, patient and procedure. All were in agreement. Monitoring electrodes were then placed in the left orbicularis oculi and left orbicularis libby muscles. Ground and stimulating electrodes were then positioned in the patient???s right chest. All electrodes were then connected to the nerve monitor. A tap test was performed to confirm correct functioning. A shave and prep of the left ear and scalp was then performed. Local anesthesia and a field block were achieved using approximately 6 cc of solution containing 1% lidocaine with 1 to 100,000 units epinephrine. The patient's left ear and scalp, left face, left neck, and left chest were then prepped and draped in sterile fashion. A skin marker was used to design planned incisions. A broad C-shaped postauricular incision was planned several finger breadths behind the postauricular crease with extension into the temporal scalp.A separate circumferential lateral meatal incision was planned at the meatus. A modified Jani incision was designed with extension into the neck along a prominent cervical crease for the associated parotidectomy and selective neck dissection. A postauricular subcutaneous incision was first created with extension into the temporal scalp. Circumferential subcutaneous incisions around the meatus were then performed. Subcutaneous incisions were then extended inferiorly along the planned incision lines into the neck. Dissection proceeded into the postauricular region in a supraperiosteal plane and lateral to the deep temporalis fascia as the ear was reflected forward, and the cartilaginous canal transected at the level of the previous meatal incisions. A self retaining retractor was positioned to reflect the auricle anteriorly for wideexposure of the mastoid cavity. The operating microscope was brought into the field and used for the remainder of the case for illumination and magnification. Some of the the periosteal fibers of the sternocleidomastoid muscle attaching to the mastoid tip were released. The zygomatic root was exposed and the temporalis retracted s uperiorly. The remnant skin and soft tissue overlying the posterolateral bony mastoid cavity was elevated in continuity down to the level of the lateral semicircular canal, which included the region overlying the inferolateral bony mastoid cavity, lateral aspect of facial ridge, sinodural angle and lateral tegmen, and the dissected contents were released as a specimen labeled posterior lateral mastoid contents. The remnant skin overlying the anterior lateral cartilaginous canal and anterior bony canal wall was similarly elevated in continuity down to the medial bony canal wall margin to a level just lateral to the anterior tympanic annulus, and released as a specimen labeled anterior lateral canal wall margin. Remnant skin and soft tissue contents at the tegmen tympani and epitympanum region were then elevated in continuity from the underlying bone, superior to inferior down to the level of the tympanic segment of the facial nerve and lateral semicircular canal, and region of the superior aspectof the remnant tympanic membrane. This included the skin and soft tissue elements in the region of the geniculate ganglion, supratubal recess, and cochleaform process down to the superior margin of the medial Eustachian tube orifice, and this was all passed as specimen labeled superior medial margin, and this was labeled for anatomic orientation for Pathology. Remnant skin posteriorly overlying the medial facial ridge was then elevated to the posterior tympanic annulus. The middle ear was entered medial to the annulus and all soft tissue encountered was elevated in continuity from the medial bony wall of the mesotympanum. The tissue over the cochlear promontory was released, and the posterior sinus region was cleared. The tissue appeared to readily diss ect in continuity. A focus of remnant soft tissue was left within the round window niche. The oval window region was exposed where a mucous effusion was encountered. This was suctioned free. There was no soft tissue in the medial oval window niche. The stapes suprastructure was partially eroded, but the footplate was clear of any obvious disease and appeared normally mobile with gentle instrumentpalpation. Dissection proceeded to clear the distal tympanic segment of the facial nerve.There was some dehiscence of the tympanic segment of the facial nerve inferiorly. Incus and malleus were absent. Inferiorly, the inferior mesotympanic tissue was similarly elevated from the medial bony wall of the mesotympanum and included the annulus and inferior remnant tympanic membrane. There did not appear to be any significant retrofacial extension. This dissected specimen was then passed and labeled as inferior drum and canal skin (but included mesotympanum contents as outlined above), and was oriented for Pathology. Remnant skin at the remaining anterior bony canal wall was then elevated posteriorly to the anterior tympani annulus. All remaining tissue from the mesotympanum was released from the medial bony wall. Dissection proceeded to clear all remaining annular remnants. More medially, the remaining tissue over the cochlear promontory was released, and the anterior oval window region was cleared. The Eustachian tube orifice appeared patent, although the remnant mucosal surfaces were similarly cleared. The bony carotid canal was identified at the inferior aspect of the Eustachian tube orifice, and all remnant overriding soft tissue was cleared down to the level of the hypotympanum. This dissected tissue was then passed as a specimen labeled anterior canal skin and anterior tympanic membrane (but included mesotympanum contents as outlined above), and was oriented for Pathology. The remnant soft tissue within the hypotympanum was then similarly released from the bony confines and sent as a specimen labeled hypotympanum. The remnant tissue at the round window niche was then dissected from its bony confines. Medially, the specimen dissected freely from the round window membrane. There was a tear in the round window membrane in the process of dissection. The liliya tympani was readily visualized and appeared clear. This specimen was sent for intraoperative frozen section analysis with no evidence of malignancy identified. Attention was directed to the remnant mastoid cavity. The otologic drill was employed using variably sized cutting and devendra burrs. The remnant tegmen was then skeletonized. The sigmoid sinus was skeletonized. The tympanic segment of the facial nerve was then skeletonized laterally from the region of the geniculate to the second genu. The epitympanum was polished with devendra burrs. Landmarks were utilized to skeletonize the vertical segment of the facial nerve from the second genu to the stylomastoid foramen. The bone posterior to the mastoid segment and anterior to sigmoid, inferior to the posterior semicircular canal, was removed, but an extended retrofacial dissection was not undertaken. The mastoid tip was removed following identification of the posterior digastric. The anterior bony canal wall and annulus regions were polished in systematic fashion with a with a devendra drill. The remnant bone anterior to the mastoid segment of the facial nerve was removed, which then enabled improved exposure of the mesotympanum and hypotympanum regions. A devendra marcella was then used to [place] the medial bony wall of the mesotympanum (to include posterior sinus region), protympanum, and toskeletonize the vertical petrous internal carotid artery. The remnant bone inferior to the cochlearpromontory to include hypotympanum was removed to address remnant air cell tracks down to the jugular bulb region. There was no evidence of any appreciable bony erosive disease encountered. With ovalwindow niche and round window regions clear of any obvious neoplastic pathology, labyrinthectomy and cochlectomy were deferred. A temporalis muscle plug was harvested to occlude the protympanum and lateral Eustachian tube orifice, as well as the round window niche. The wound was then copiously irrigated with normal saline. At conclusion of this portion of the case, a reassuring response at 0.4 mA was achieved using the stimulating probe at the proximal tympanicsegment of the facial nerve. Large pieces of Gelfoam were placed within the middle ear cavity. See the dictation from Dr. Hoang's team for the remainder of surgical procedures. Surgical Infection Prevention Bundle Used? No Attestation: Case Date: 06/28/2021 - 06/29/2021 I was present and I participated during the entire procedure (does not need to include opening and closing). Apolinar Hernández MD 07/11/2021 documented in this encounter Plan of Treatment Upcoming Encounters Date Type Department Care Team (Late st Contact Info) Description 04/29/2024 11:00 AM EST Office Visit Radiation Oncology at [address] [phone] Tyrese Fitzgerald MD [facility] [place] [address] documented as of this encounter Procedures Procedure Name Priority Date/Time Associated Diagnosis Comments HEMOGRAM Routine 06/29/2021 12:40 AM EST DIFFERENTIAL, AUTOMATED Routine 06/29/19 12:40 AM EST HC CBC,PLT & AUTO DIFF Routine 12:40 AM EST BASIC METABOLIC PANEL Routine 06/29/2021 12:40 AM EST EXC PAROTID TUMOR/GLAND,TOTAL,W DISSEC+PRESERVATION FACIAL NERVE Routine 06/28/2021 10:51 PM EST 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, except mandible ADJACENT TISSUE TRANSFER/REARRANGEMENT; 30.1 TO 60.0 SQ CM, HEAD/NECK Routine 06/28/2021 10:51 PM EST 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, except mandible SPECIMEN TO PATHOLOGY Routine 06/28/2021 8:39 PM EST SPECIMEN TO PATHOLOGY Routine 06/28/2021 8:23 PM EST SPECIMEN TO PATHOLOGY Routine 06/28/2021 6:22 PM EST BLOOD GAS ARTERIAL POC Routine 5:46 PM EST SPECIMEN TO PATHOLOGY Routine 06/28/2021 5:40 PM EST SPECIMEN TO PATHOLOGY Routine 06/28/2021 5:40 PM EST SPECIMEN TO PATHOLOGY Routine 06/28/2021 5:40 PM EST SPECIMEN TO PATHOLOGY Routine 06/28/2021 5:40 PM EST SPECIMEN TO PATHOLOGY Routine 06/28/2021 5:40 PM EST SPECIMEN TO PATHOLOGY STAT 06/28/2021 3:04 PM EST SPECIMEN TO PATHOLOGY Routine 06/28/2021 12:54 PM EST SPECIMEN TO PATHOLOGY Routine 06/28/2021 12:54 PM EST SPECIMEN TO PATHOLOGY Routine 06/28/2021 12:41 PM EST SPECIMEN TO PATHOLOGY Routine 06/28/2021 11:54 AM EST SPECIMEN TO PATHOLOGY Routine 06/28/2021 11:20 AM EST SPECIMEN TO PATHOLOGY Routine 06/28/2021 10:58 AM EST SURGICAL PATHOLOGY REPORT Routine 06/28/2021 10:51 AM EST Adjacent/Tissue Transfer/Rearrangement, Any Area, Defect 30.1 Sq Cm To 60.0 ([id number]) 06/28/2021 7:43 AM EST 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, except mandible Exc Parotd, Total, Dissect 5Th Nerv ([id number]) 06/28/2021 7:43 AM EST 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, except mandible FACIAL NERVE MONITORING, SETUP Routine 06/28/2021 5:59 AM EST 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, except mandible MICROSCOPE USE Routine 06/28/2021 5:59 AM EST 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, except mandible RESECTION TEMPORAL BONE, EXTERNAL APPROACH Routine 06/28/2021 5:59 AM EST 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, except mandible MASTOIDECTOMY, COMPLETE Routine 06/28/19 5:59 AM EST 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, except mandible CERVICAL LYMPHADENECTOMY (MODIFIED RADICAL NECK DISSECTION) Routine 06/28/2021 5:59 AM EST 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, except mandible documented in this encounter Results * (ABNORMAL) Differential, Automated (06/29/2021 12:40 AM EST) Neutrophil % 88.8 % [facility] Neutrophil Absolute 10.40(H) 1.70 - 6.10 x10(3)/mc L [facility] Lymph % 5.2 % [facility] Lymphocytes Abs 0.6(L) 0.9 - 3.2 x10(3)/mc L [facility] Monocyte % 5.6 % [facility] Monocyte Abs 0.6 0.3 - 0.9 x10(3)/mc L [facility] Eos % 0.0 % [facility] Eosinophils Abs 0.0 0.0 - 0.4 x10(3)/[facility] Basophil % 0.1 % [facility] Baso Absolute 0.0 0.0 - 0.1 x10(3)/[facility] Immature Gran % 0.30 % [facility] Comment: Immature granulocytes(IG's)percentage and absolute count will include metamyelocytes, myelocytes, and promyelocytes. Blood smears from CBCs yielding IG's will be scanned manually for concordance. If this scan disagrees with the automated IG or if promyelocytes are noted, a manual differential will be performed. Immature Gran Absolute 0.03 0.00 - 0.04 x10(3)/[facility] Blood 06/29/2021 12:4 0 AM EST 06/29/2021 12:59 AM EST Narrative Resulting Agency Comment Spec In Lab Jayne Darby MD HEMATOLOGY ORDERAB LES [facility] [place] [address] * (ABNORMAL) Hemogram (06/29/2021 12:40 AM EST) White Blood Cell 11.7(H) 4.0 - 9.5 x10(3)/[facility] Red Blood Cell 4.40(L) 4.58 - 5.54 x10(6)/[facility] Hemoglobin 14.0 13.7 - 16.5 g/dL [facility] Hematocrit 40.6 40.5 - 48.5 % [facility] Mean Cell Volume 92.3 82.9 - 93.1 fL [facility] Mean Cell Hemoglobin 31.8 27.5 - 32.1 pg [facility] Mean Cell Hemoglobin Concentration 34.5 32.0 - 35.7 g/dL [facility] Platelet 164 145 - 357 x10(3)/mc L [facility] RDW Standard Deviation 44.2 36.0 - 45.0 fL [facility] RDW coefficient of variation 13.0 11.4 - 13.8 % [facility] Mean Platelet Volume 10.6 7.6 - 12.9 fL [facility] NRBC% auto 0.0 % [facility] NRBC Absolute 0.000 0.000 - 0.000 x10(3)/mc L [facility] Blood 06/29/2021 12:4 0 AM EST 06/29/2021 12:59 AM EST Narrative Resulting Agency Comment Spec In Lab Jayne Darby MD HEMATOLOGY ORDERAB LES Performing Organization Address City/State/[facility] Co de Phone Number [facility] [place] [address] * (ABNORMAL) Basic Metabolic Panel (non-fasting) (06/29/2021 12:40 AM EST) Glucose 175 65 - 199 mg/dL [facility] Comment:Diabetes: >=200 mg/d L plus symptoms Blood Urea Nitrogen 14 10 - 20 mg/dL [facility] Creatinine 1.01 0.80 - 1.50 mg/dL [facility] Sodium 138 135 - 145 mmol/L [facility] Potassium 4.4 3.5 - 5.0 mmol/L [facility] Comment: Please note: ??Patients with WBC >100,000 may have falsely elevated Potassium levels. ??For accurate Potassium quantification in these patients send serum separator tube (gold top) for subsequent determinations. ??Contact the Clinical Chemistry Laboratory if there are any questions. Chloride 103 98 - 107 mmol/L [facility] Carbon Dioxide 24 22 - 31 mmol/L [facility] Anion Gap 11 5 - 15 mmol/L [facility] Calcium 8.2(L) 8.5 - 10.5 mg/dL [facility] Est Glomerular Filtration Rate 78 >=60 mL/min/1. 73 m?? [facility] Comment: This patient? s estimated glomerular filtration rate (eGFR) is between 78 mL/min/1.73 m2 (patients with less muscle mass per kg body weight) and 90 mL/min/1.73 m2 (patients with more muscle mass [...] and symptoms in addition to eGFR. Blood 06/29/2021 12:4 0 AM EST 06/29/2021 12:59 AM EST Narrative Resulting Agency Comment Spec In Lab Apolinar Hernández MD CHEMISTRY ORDERABLES Performing Organization Address [facility] Co de Phone Number [facility] [place] [address] * Specimen to Pathology (06/28/2021 8:39 PM EST) AP Specimen 06/28/2021 8:39 PM EST 06/28/2021 8:39 PM EST Narrative [facility] - 06/28/2021 8:39 PM EST Specimen requisition ordered. ??Separate Pathology report to follow Apolinar Hernández MD PATHOLOGY/CYTOLOGY O RDERABLES Performing Organization Address [facility] Co de Phone Number [facility] [place] [address] * Specimen to Pathology (06/28/2021 8:23 PM EST) AP Specimen 06/28/2021 8:23 PM EST 06/28/2021 8:23 PM EST Narrative [facility] - 06/28/2021 8:23 PM EST Specimen requisition ordered. ??Separate Pathology report to follow Apolinar Hernández MD PATHOLOGY/CYTOLOGY O RDERABLES Performing Organization Address [facility]/[place] [address] * Specimen to Pathology (06/28/2021 6:22 PM EST) AP Specimen 06/28/2021 6:22 PM EST 06/28/2021 6:22 PM EST Narrative [facility] - 06/28/2021 6:22 PM EST Specimen requisition ordered. ??Separate Pathology report to follow Apolinar Hernández MD PATHOLOGY/CYTOLOGY O RDERABLES Performing Organization Address [facility] [place] [address] * (ABNORMAL) BLOOD GAS 2 ARTERIAL (06/28/2021 5:46 PM EST) pH, Arterial 7.37 7.35 - 7.45 [facility] PCO2, Arterial 41 35 - 45 mmHg [facility] PO2, Arterial 145(H) 85 - 104 mmHg [facility] Bicarbonate, Arterial 23.4 20.0 - 26.0 mmol/L [facility] Base Excess, Arterial -1.9 -3.0 - 3.0 mmol/L [facility] Hgb Blood Gas 14.8 13.7 - 16.5 g/dL [facility] Oxyhemoglobin, Arterial 97.5(H) 94.0 - 97.0 % [facility] Carboxyhemoglob in, Arterial 1.0 % [facility] Comment: Nonsmokers: 0.5-1.5% COHB Smokers: Variable, but usually less than 10% Toxic: 20-30% COHB Lethal: Greater than 60% COHB Methemoglobin, Arterial 0.3 <=1.5 % [facility] Na Whole Blood 136 135 - 145 mmol/L [facility] K Whole Blood 4.1 3.5 - 5.0 mmol/L [facility] Comment: Please note: Patients with WBC >100,000 may have falsely elevated Potassium levels. Contact the Clinical Chemistry Laboratory if there are any questions. ICa Whole Blood 1.12(L) 1.15 - 1.33 mmol/L [facility] Comment: Note: ??Total bilirubin higher than 20 mg/dL may lead to falsely low ionized calcium. CL Whole Blood 106 98 - 107 mmol/L [facility] Gluc Whole Bld 177 65 - 199 mg/dL [facility] Comment:Diabetes: >=200 mg/d L plus symptoms. Lactate WB 2.4(H) 0.5 - 2.2 mmol/L [facility] FIO2 Art 43 % [facility] PF Ratio Art 337 [facility] Blood 06/28/2021 5:46 PM EST 06/28/2021 5:46 PM EST Apolinar Hernández MD POINT OF CARE TEST O RDERABLES Performing Organization Address [facility] de Phone Number [facility] [place] [address] * Specimen to Pathology (06/28/2021 5:40 PM EST) AP Specimen 06/28/2021 5:40 PM EST 06/28/2021 5:40 PM EST Narrative [facility] - 06/28/2021 5:40 PM EST Specimen requisition ordered. ??Separate Pathology report to follow Jose D Hoang MD PATHOLOGY/CYTOLOGY ORDERABLES Performing Organization Address [facility] Co de Phone Number [facility] [place] [address] * Specimen to Pathology (06/28/2021 5:40 PM EST) AP Specimen 06/28/2021 5:40 PM EST 06/28/2021 5:40 PM EST Narrative [facility] - 06/28/2021 5:40 PM EST Specimen requisition ordered. ??Separate Pathology report to follow Jose D Hoang MD PATHOLOGY/[place] [address] * Specimen to Pathology (06/28/2021 5:40 PM EST) AP Specimen 06/28/2021 5:40 PM EST 06/28/2021 5:40 PM EST Narrative [facility] - 06/28/2021 5:40 PM EST Specimen requisition ordered. ??Separate Pathology report to follow Jose D Hoang MD PATHOLOGY/CYTOLOGY ORDERABLES Performing Organization Address City/[facility]/[place] [address] * Specimen to Pathology (06/28/2021 5:40 PM EST) AP Specimen 06/28/2021 5:40 PM EST 06/28/2021 5:40 PM EST Narrative [facility] - 06/28/2021 5:40 PM EST Specimen requisition ordered. ??Separate Pathology report to follow Jose D Hoang MD PATHOLOGY/CYTOLOGY ORDERABLES Performing Organization Address City/[facility]/[place] [address] * Specimen to Pathology (06/28/2021 5:40 PM EST) AP Specimen 06/28/2021 5:40 PM EST 06/28/2021 5:40 PM EST Narrative [facility] - 06/28/2021 5:40 PM EST Specimen requisition ordered. ??Separate Pathology report to follow Jose D Hoang MD PATHOLOGY/CYTOLOGY ORDERABLES Performing Organization Address City/[facility]/[place] [address] * Specimen to Pathology (06/28/2021 3:04 PM EST) AP Specimen 06/28/2021 3:04 PM EST 06/28/2021 3:04 PM EST Narrative [facility] - 06/28/2021 3:04 PM EST Specimen requisition ordered. ??Separate Pathology report to follow Apolinar Hernández MD PATHOLOGY/[place] [address] * Specimen to Pathology (06/28/2021 12:54 PM EST) AP Specimen 06/28/2021 12:5 4 PM EST 06/28/2021 12:54 PM EST Narrative [facility] - 06/28/2021 12:54 PM EST Specimen requisition ordered. ??Separate Pathology report to follow Apolinar Hernández MD PATHOLOGY/CYTOLOGY O ANA LUISA Performing Organization Address City/[facility]/[place] [address] * Specimen to Pathology (06/28/2021 12:54 PM EST) AP Specimen 06/28/2021 12:5 4 PM EST 06/28/2021 12:54 PM EST Narrative [facility] - 06/28/2021 12:54 PM EST Specimen requisition ordered. ??Separate Pathology report to follow Apolinar Hernández MD PATHOLOGY/[place] [address] * Specimen to Pathology (06/28/2021 12:41 PM EST) AP Specimen 06/28/2021 12:4 1 PM EST 06/28/2021 12:41 PM EST Narrative [facility] - 06/28/2021 12:41 PM EST Specimen requisition ordered. ??Separate Pathology report to follow Apolinar Hernández MD PATHOLOGY/[place] [address] * Specimen to Pathology (06/28/2021 11:54 AM EST) AP Specimen 06/28/2021 11:5 4 AM EST 06/28/2021 11:54 AM EST Narrative [facility] - 06/28/2021 11:54 AM EST Specimen requisition ordered. ??Separate Pathology report to follow Apolinar Hernández MD PATHOLOGY/CYTOLOGY O ANA LUISA Performing Organization Address [facility] [place] [address] * Specimen to Pathology (06/28/2021 11:20 AM EST) AP Specimen 06/28/2021 11:2 0 AM EST 06/28/2021 11:20 AM EST Narrative [facility] - 06/28/2021 11:20 AM EST Specimen requisition ordered. ??Separate Pathology report to follow Apolinar Hernández MD PATHOLOGY/CYTOLOGY O ANA LUISA Performing Organization Address [facility] [place] [address] * Specimen to Pathology (06/28/2021 10:58 AM EST) AP Specimen 06/28/2021 10:5 8 AM EST 06/28/2021 10:58 AM EST Narrative [facility] - 06/28/2021 10:58 AM EST Specimen requisition ordered. ??Separate Pathology report to follow Apolinar Hernández MD PATHOLOGY/CYTOLOGY O ANA LUISA Performing Organization Address [facility] [place] [address] * Surgical Pathology Report (06/28/2021 10:51 AM EST) Final Diagnosis [id number] ? Location: [facility]; [facility]; A The signing pathologist has (i) examined the relevant preparation(s) for the specimen(s) and (ii) rendered or confirmed the diagnosis(es). . 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 ?(see Discussion.) B - LEFT posterior/lateral mastoid contents, biopsy: - Hyperkeratotic squamous epithelium and fibrous soft tissue. - Acellular keratinous debris. - ??There is no evidence of malignancy. C - [...] is present at the specimen margin adjacent ?to oval window annotation. - Invasive and in situ carcinoma is present at both the ?TM and hypotympanum/infe rior specimen margins. F - LEFT hypotympanum, biopsy: - Invasive squamous cell carcinoma, extensively involving specimen edges. G - LEFT tissue at round window, biopsy: - Benign fibrous and glandular tissue. H - Left neck dissection level 2A, excision: - Seven lymph nodes, ?? negative for malignancy. (0/7) I - LEFT tissue at digastric ridge, excision: - Sclerotic fibrous tissue, ?? negative for malignancy. J - LEFT tragus, excision: - Sclerotic fibrous tissue and cartilage, ?negative for malignancy. K - LEFT neck level 3, excision: - Nine lymph node, ??negative for malignancy. (0/9) L - LEFT parotid, excision: - Parotid gland tissue, ?? negative for malignancy. M - LEFT superficial lobe of parotid, excision: - Parotid gland, fibrous tissue, and nerve tissue, ?negative for malignancy. - Four lymph nodes, ?? negative for malignancy. (0/4) N - Left perifacial node, excision: - Two lymph nodes, ??negative for malignancy. (0/2) . DIAGNOSIS O - Left neck level 1B, excision: - Submandibular gland tissue, ?? negative for malignancy. - Fibroadipose tissue, ?? negative for malignancy. Electronically signed by: ?MD Mirza, Anthony Shultz Verified: ??07/05/2021 12:00 ??Pathologist Performed at: ??-[facility] [place], [place], [place] DISCUSSION It is difficult to assign an AJCC pathologic stage due to the inability to assess largest tumor dimension. No ?? perineural or lymphovascular invasion is recognized. Clinical/surgical correlation is needed to determine final margin status with regard to separately submitted involved specimens. ADDITIONAL STUDIES Whole slide scan: representative government relations slide(s) SPECIMEN(S) SUBMITTED A - LEFT SUPERIOR MEDIAL MARGIN, ORIENTATION PER CARD, biopsy (1) B - LEFT posterior/lateral mastoid contents, biopsy (1) C - LEFT anterolateral canal margin, biopsy (1) D - LEFT inferior drum and canal skin, orientation per card., biopsy (1) E - LEFT anterior canal skin and anterior tympanic membrane, orientation per card., biopsy (1) F - LEFT hypotympanum, biopsy (1) G - LEFT tissue at round window, biopsy (1) ?for frozen section H - Left neck dissection level 2A, excision (1) I - LEFT tissue at digastric ridge, excision (1) J - LEFT tragus, excision (1) K - LEFT neck level 3, excision (1) L - LEFT parotid, excision (1) M - LEFT superficial lobe of parotid, excision (1) N - Left Perifacial Node, excision (1) O - Left Neck Level 1B, excision (1) CLINICAL INFORMATION [id number] 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 Quantity/Size: Single, 1.5 x 1.0 x 0.1 cm. Tissue Description: One small irregularly shaped thin pink red piece of tissue surgically oriented per card: Epitympanum, tegmen, tympanic membrane, lateral canal. Superior medial margin. The skin is somewhat roughened in an area that extends to the tegmen and pack membrane margins. Measuring 0.7 x 0.8 cm in total area. Otherwise no grossly . SPECIMEN PROCESSING identifiable lesion is seen. There is a small 0.2 x 0.1 cm full-thickness defect located 0.2 cm from the tegmen margin. Ink designation: The tympanic membrane half of the specimen is inked blue and the tegmen half is inked black. The specimen is reviewed with Dr. Ireland. Sections/Processi ng: Entirely submitted in 4 cassettes as follows: ?A1: ??Epitympanum tip, submitted per diagram below ?A2: ??Lateral canal tip ?A3-A4: ??Remainder of specimen submitted entirely for diagram below from ? epitympanum to lateral canal, per diagram below, A4 to include area of defect B - Labeled/Fixative: Left posterolateral mastoid contents, fresh. Quantity/Size: Single, 2.0 x 1.1 x 0.3 cm. Tissue Description: Sharp-white fibrous tissue with focal adherent blood clot. Sections/Processi ng: Entirely submitted in 1 cassette labeled B1. C - Labeled/Fixative: Left anterolateral canal margin, fresh. Quantity/Size: Single, 2.4 x 1.2 x 0.5 cm. Tissue Description: Sharp-pink roughened mucosa with scant fine hair and a cauterized resection margin. Received unoriented. Sections/Processi ng: Inked, serially sectioned and entirely submitted in 4 cassettes labeled C1-C4. D - Labeled/Fixative: Left inferior Drum and Canal skin, orientation per card, fresh. Quantity/Size: Single, 1.3 x 1.0 x 0.4 cm. Tissue Description: One small sharp-pink fragment of tissue surgically oriented per card: Inferior drum, canal skin. Inferior drum + canal skin. There is a sharp whitish area measuring 0.8 x 0.6 cm towards the inferior drum aspect. Otherwise there is no grossly identifiable lesion appreciated. Inked designation: The inferior drum is inked black, and the canal skin half is inked blue. Prosector designated anterior and posterior tips. The specimen is reviewed with Dr. Ireland. Sections/Processi ng: Entirely submitted in 3 cassettes as follows: ?D1: ??Anterior tips, perpendicular sections, per diagram below ?D2: ??Posterior tips ?D3: ??Body longitudinal sections entirely submitted E - Labeled/Fixative: Left anterior canal skin and anterior tympanic membrane orientation per card, fresh. Quantity/Size: Single, 1.2 x 1.2 x 0.4 cm. Tissue Description: One is sharp-pink irregularly shaped piece of tissue oriented per card: hypotympanum inferior, anterior canal skin, drum (tympanic membrane), oval window deep to it. Anterior canal skin and anterior tympanic membrane. There is roughened area over the piece of tissue measuring 1.0 x 0.8 cm and extending to the margins. However there is no grossly identifiable lesion.. Ink designation: Hypotympanum inferior is inked blue and opposite hypotympanum inferior is inked black The specimen is reviewed with Dr. Ireland. Sections/Processi ng: Entirely submitted in 2 cassettes as follows: ?E1: ??Anterior canal skin tip, perpendicular sections, per diagram below ?E2: ??Opposite anterior canal skin tip, perpendicular sections ?E3: Body, longitudinal sections F - Labeled/Fixative: Left hypotympanum, fresh. Quantity/Size: Three, 0.7 x 0.7 x 0.3 cm in aggregate. Tissue Description: Small sharp-pink fragments of unoriented tissue. Sections/Processi ng: Submitted en toto ??in 1 cassette labeled F1. . SPECIMEN PROCESSING G - Labeled/Fixative: Left tissue around window, fresh. Quantity/Size: Single, 0.2 x 0.1 x 0.1 cm. Tissue Description: Scant small red tissue fragment. Sections/Processi ng: The following tissue is submitted for frozen section: G1. The specimen is totally submitted for frozen section in 1 cassette labeled G1. H - Labeled/Fixative: Left neck dissection level 2A, fresh. Quantity/Size: Single, 5.0 x 3.5 x 0.9 cm. Tissue Description: Adipose tissue with multiple lymph nodes, up to 1.3 x 1.0 x 0.6 cm in greatest dimension. Sections/Processi ng: [employer] sections in 5 cassettes as follows: ?H1: ??Largest lymph node serially sectioned and submitted entirely ?H2: ??Three lymph node candidates submitted in toto ?H3: ??Two lymph nodes candidates submitted in toto ?H4: ??One lymph node candidate bisected and submitted entirely ?H5: ??One lymph node candidate bisected and submitted entirely I - Labeled/Fixative: Left tissue digastric ridge, fresh. Quantity/Size: Single, 0.6 x 0.6 x 0.4 cm. Tissue Description: Sharp-pink irregularly shaped cauterized tissue fragment. Sections/Processi ng: Entirely submitted in 1 cassette labeled I1. J - Labeled/Fixative: Left tragus, fresh. Quantity/Size: Single, 2.0 x 1.6 x 1.1 cm. Tissue Description: Sharp-pink unoriented triangular shaped cartilaginous tissue with underlying cauterized resection margin. Sections/Processi ng: Inked, serially sectioned and entirely submitted in 2 cassettes labeled J1-J2. K - Labeled/Fixative: Left neck level 3, fresh. Quantity/Size: Single, 4.3 x 3.5 x 0.9 cm. Tissue Description: Adipose tissue with multiple lymph nodes, up to 1.5 x 0.7 x 0.6 cm in greatest dimension. Sections/Processi ng: [employer] sections in 8 cassettes as follows: ?K1-K2: ??Largest lymph node serially sectioned and submitted entirely ?K3: ??Three lymph node candidates submitted in toto ?K4: ??One lymph node candidate bisected and submitted entirely ?K5: ??One lymph node candidate bisected and submitted entirely ?K6: ??One lymph node candidate bisected and submitted entirely ?K7: ??One lymph node candidate bisected and submitted entirely ?K8: ??One lymph node candidate bisected and submitted entirely L - Labeled/Fixative: Left deep lobe of parotid, fresh. Quantity/Size: Three, 2.7 x 2.3 x 1.2 cm. Tissue Description: One fragile sharp-brown nodule with two smaller fragments measuring 1.0 x 0.6 x 0.3 cm and 0.5 x 0.5 x 0.3 cm. The larger nodule has a homogenous sharp-brown nodular cut surfaces that fragment upon sectioning. There are no grossly identifiable lesions present. Inking designation: Outer surface of the larger nodule is inked black Sections/Processi ng: [employer] sections in 3 cassettes as follows: ?L1-L2: ??Manager [employer] sections of larger nodule ?L3: ??Detached nodules submitted in toto M - Labeled/Fixative: Left superficial lobe of parotid, fresh. Quantity/Size: Single, 18.87 g (fixed), 6.5 x 3.5 x 1.7 cm. Tissue Description: A nodular cauterized piece of adipose and fibrous tissue surgically attached to a card for orientation: Superior, inferior, posterior, . SPECIMEN PROCESSING anterior. Left superficial lobe of parotid. There is focally adherent nodule measuring 1.4 by 1.2 x 0.5 cm. There is a vaguely nodular area measuring 1.5 x 1.2 x 1.0 cm, cut surface reveals smooth yellow surface. Cut surfaces reveal soft yellow vaguely nodular tissue without any grossly apparent lesion. LESION: No lesion grossly identified. There is a focal hemorrhagic area within the vaguely nodular area in slice IX measuring 0.9 x 0.5 cm and abutting the medial resection margin. Ink designation: The anterior resection margin is inked blue, the posterior margin is inked black, the superior margin is inked orange, the inferior margin is inked green, the medial surface is inked red, the lateral surface is inked yellow Sectioning: The lesion is serially sectioned perpendicular to the long axis from superior to inferior into X slices The specimen is seen and reviewed with Dr. Ireland Sections/Processi ng: Manager [employer] sections in 8 cassettes as follows: ?M1: ??Manager [employer] section from slice I to include superior-orange inked margin ? as well as medial-red lateral-yellow inked margins, perpendicular slices ?M2: ??Manager [employer] section from slice III, to include posterior-black, medial- ?red, and lateral-yellow margins ?M3: ??Manager [employer] section from slice from V to include blue-anterior, red- ?medial, and yellow-lateral inked margins ?M4: ??Manager [employer] sections from slice VII to include black-posterior, medial- ?red, and lateral-yellow margins ?M5: ??Manager [employer] section of vaguely nodular area from slice VII to include ? medial-red and anterior-blue inked margins ?M6: ??Manager [employer] section of vaguely nodular area with hemorrhage from slice IX ? to include medial-red, lateral-yellow, and posterior-black margins ?M7: ??Manager [employer] sections from slice X to include green-inked inferior, red- ?lateral, and yellow-medial inked margins ?M8: ??[employer] section of loosely adherent nodule from slice x N - Labeled/Fixative: Left perifacial node, fresh. Quantity/Size: Single, 2.7 x 2.0 x 1.0 cm. Tissue Description: Adipose tissue with two lymph nodes, up to 2.0 x 1.0 x 0.9 cm in greatest dimension. Sections/Processi ng: [employer] sections in 4 cassettes as follows: ?N1-N3: ??Largest lymph node serially sectioned and submitted entirely ?N4: ??One lymph node candidate bisected and submitted entirely O - Labeled/Fixative: Left neck level 1B, fresh. Quantity/Size: Single, 5.0 x 3.5 x 2.2 cm. Tissue Description: Adipose tissue with five lymph nodes, up to 0.5 x 0.5 x 0.2 cm. Additionally received is a 4.5 x 2.1 x 1.6 cm salivary gland. The outer surface of the salivary gland is inked black and the salivary gland is serially sectioned and photographed. The salivary gland has sharp lobulated cut surfaces. The are no grossly appreciable lesions. Additionally there is 2.0 x 1.5 x 0.5 cm piece of cauterized muscle Sections/Processi ng: Manager [employer] sections in 11 cassettes as follows: ?O1: ??Largest lymph node submitted in toto ?O2: ??Four lymph node candidates submitted in toto ?O3-O9: ??Remaining adipose submitted entirely ?O10: ??Manager [employer] section of skeletal muscle ?O11: ??Manager [employer] section of salivary gland ??SAS ?Frozen Section FROZEN SECTION DIAGNOSIS GFS1 - Left tissue at round window, biopsy, ?for frozen section: - Negative for malignancy. . FROZEN SECTION DIAGNOSIS 06/28/21 15:26 / DAK Electronically signed by: ?Racquel Ireland MD Verified: ??06/28/2021 15:27 ??Pathologist Performed at: ??-[facility] [place], [place], [place] This intraoperative consultation should be interpreted as a preliminary diagnosis pending review of the entire specimen and special studies, if any. A final Surgical Pathology report will follow this preliminary Frozen Section report(s). 07/05/2021 12:00 PM EST [facility] LYMPH NODE SPECIMEN / Unknown 06/28/2021 10:51 AM EST 06/28/2021 10:51 AM EST BIOPSY SPECIMEN / Unknown 06/28/2021 10:51 AM EST 06/28/2021 10:51 AM EST BIOPSY SPECIMEN / Unknown 06/28/2021 10:51 AM EST 06/28/2021 10:51 AM EST BIOPSY SPECIMEN / Unknown 06/28/2021 10:51 AM EST 06/28/2021 10:51 AM EST BIOPSY SPECIMEN / Unknown 06/28/2021 10:51 AM EST 06/28/2021 10:51 AM EST BIOPSY SPECIMEN / Unknown 06/28/2021 10:51 AM EST 06/28/2021 10:51 AM EST BIOPSY SPECIMEN / Unknown 06/28/2021 10:51 AM EST 06/28/2021 10:51 AM EST LYMPH NODE SPECIMEN / Unknown 06/28/2021 10:51 AM EST 06/28/2021 10:51 AM EST BIOPSY SPECIMEN / Unknown 06/28/2021 10:51 AM EST 06/28/2021 10:51 AM EST BIOPSY SPECIMEN / Unknown 06/28/2021 10:51 AM EST 06/28/2021 10:51 AM EST LYMPH NODE SPECIMEN / Unknown 06/28/2021 10:51 AM EST 06/28/2021 10:51 AM EST PAROTID GLAND STRUCTURE / Unknown 06/28/2021 10:51 AM EST 06/28/2021 10:51 AM EST PAROTID GLAND STRUCTURE / Unknown 06/28/2021 10:51 AM EST 06/28/2021 10:51 AM EST LYMPH NODE SPECIMEN / Unknown 06/28/2021 10:51 AM EST 06/28/2021 10:51 AM EST LYMPH NODE SPECIMEN / Unknown 06/28/2021 10:51 AM EST 06/28/2021 10:51 AM EST Jose D Hoang MD PATHOLOGY/CYTOLOGY ORDERABLES [facility] [place] [address] documented in this encounter Visit Diagnoses Diagnosis 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, 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, except mandible Postoperative examination Follow-up examination, following unspecified surgery S/P tympanoplasty Other postprocedural status 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 Chronic tubotympanic suppurative otitis media 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 When ordered for pain, acetaminophen should be given even when other ordered pain medications are indicated. We do not order the liquid tylenol or ibuprofen because it has sorbitol and can contribute to diarrhea., Routine Given 07/01/2021 11:36 AM EST 650 mg 20-Other (document in comment section) Given 07/01/2021 6:00 AM EST 650 mg Given 07/01/2021 2:00 AM EST 650 mg ampicillin-sulbactam (Unasyn) 3 g vial attach to sodium chloride 0.9% 100 mL Mini-Bag Plus 3 g, Intravenous, EVERY 8 HOURS, 15 doses, First dose on Lyndsay 06/29/21 at 0600, Last dose on 07/03/21 at 2200, Administer over 30 Minutes, Warning Vesicant/Irritant Medication , Indication for (Active or Suspected): Prophylaxis New Bag 07/01/2021 6:00 AM EST 3 g 200 mL/ hr New Bag 06/30/2021 10:00 PM EST 3 g 200 mL/hr New Bag 06/30/2021 2:02 PM EST 3 g 200 mL/hr atorvastatin (Lipitor) tablet 20 mg 20 mg, Oral, EVERY EVENING, First dose on Sat06/29/21 at 1700, Until Discontinued, Routine Given 06/30/2021 5:06 PM EST 20 mg Given 06/29/2021 5:15 PM EST 20 mg carboxymethylcellulose (Refresh Plus) 0.5 % ophthalmic drops 1 drop 1 drop, Both Eyes, 3 TIMES DAILY PRN, Starting on Sat06/29/21 at 0156, Until 07/01/21 at 1539, Dry Eyes, Routine Given 06/29/2021 8:33 AM EST 1 drop cyanocobalamin (Vitamin B-12) (Vitamin B-12) tablet 1,000 mcg 1,000 mcg, Oral, DAILY, First dose on Lyndsay 06/29/21 at 0900, Until Discontinued, Routine Given 07/01/2021 8:58 AM EST 1,000 mcg Given 06/30/2021 8:36 AM EST 1,000 mcg Given 06/29/2021 8:32 AM EST 1,000 mcg dorzolamide-timoloL (Cosopt) 2-0.5% ophthalmic solution 1 drop, Both Eyes, 2 TIMES DAILY, First dose on [facility] 06/29/21 at 0900, Until Discontinued, Routine Given 07/01/2021 8:57 AM EST 1 drop Given 06/30/2021 9:00 PM EST 1 drop Given 06/30/2021 8:36 AM EST 1 drop EPINEPHrine (Adrenalin) nasal solution ONCE PRN, Starting on Sat06/28/21 at 1121, Until 07/01/21 at 1539, Intra-Operative (Intra-Procedure), Routine Given 06/28/2021 11:21 AM EST 30 mLs erythromycin (Romycin) 5 mg/gram (0.5 %) ophthalmic ointment Left Eye, 6 TIMES DAILY, First dose (after last modification) on Sat06/29/21 at 1600, Until Discontinued Given 07/01/2021 9:06 AM EST 1 Tube Given 07/01/2021 7:00 AM EST Given 06/30/2021 10:00 PM EST FLUoxetine (PROzac) capsule 10 mg 10 mg, Oral, DAILY, First dose on Sat06/29/21 at 0900, Until Discontinued, Routine Given 07/01/2021 8:58 AM EST 10 mg Given 06/30/2021 8:36 AM EST 10 mg Given 06/29/2021 8:32 AM EST 10 mg gelatin adsorbable (Gelfoam) sponge ONCE PRN, Starting on Sat06/28/21 at 1121, Until 07/01/21 at 1539, Intra-Operative (Intra-Procedure) Given 06/28/2021 11:21 AM EST 1 each heparin (porcine) (5,000 units/1 mL) subcutaneous injection 5,000 Units 5,000 Units, Subcutaneous, EVERY 8 HOURS SCHEDULED, First dose on Lyndsay 06/29/21 at 0600, Until Discontinued, Routine Given 07/01/2021 5:54 AM EST 5,000 Units Given 06/30/2021 10:00 PM EST 5,000 Units Given 06/30/2021 2:02 PM EST 5,000 Units ibuprofen (Motrin) tablet 400 mg 400 mg, Oral, EVERY 6 HOURS SCHEDULED, First dose on Lyndsay 06/29/21 at 0045, Until Discontinued, Administer orally with milk or food to minimize GI irritation. Maximum dose of 3,200 mg from all sources in 24 hours. We do not order the liquid tylenol or ibuprofen because it has sorbitol and can contribute to diarrhea., Routine Given 07/01/2021 11:36 AM EST 400 mg Given 07/01/2021 6:00 AM EST 400 mg Given 07/01/2021 12:00 AM EST 400 mg lidocaine (Xylocaine) 4 % (40 mg/mL) solution ONCE PRN, Starting on Sat06/28/21 at 2105, Until 07/01/21 at 1539, Intra-Operative (Intra-Procedure) Given 06/28/2021 9:05 PM EST 1 Bottle 19- Surgical Site lidocaine-EPINEPHrine (2% - 1:100,000) injection vial ONCE PRN, Starting on Sat06/28/21 at 0955, Until 07/01/21 at 1539, Intra-Operative (Intra-Procedure), Routine Given 06/28/2021 9:00 AM EST 10 mLs 19- Surgical Site loperamide (Imodium A-D) capsule 2 mg 2 mg, Oral, DAILY, First dose on Lyndsay 06/29/21 at 0900, Until Discontinued, Do not exceed 16 mg/day., Routine Given 07/01/2021 8:58 AM EST 2 mg Given 06/30/2021 8:36 AM EST 2 mg Given 06/29/2021 8:32 AM EST 2 mg oxyCODONE (Roxicodone) tablet 5-10 mg 5-10 mg, Oral, EVERY 3 HOURS PRN, Starting on Sat06/29/21 at 0016, Until 07/01/21 at 1539, Pain, Give 5 mg for pain 1-5; Give 10 mg for pain 6-10, Routine Given 06/29/2021 5:19 AM EST 10 mg Given 06/29/2021 2:27 AM EST 10 mg pantoprazole EC (Protonix) tablet 20 mg 20 mg, Oral, DAILY, First dose on Sat06/29/21 at 0900, Until Discontinued Given 07/01/2021 8:58 AM EST 20 mg Given 06/30/2021 8:36 AM EST 20 mg Given 06/29/2021 8:33 AM EST 20 mg pantothenic Ac-Min Oil-Pet,Hyd (Aquaphor) 41 % ointment 1 each 1 each, Topical (Top), 2 TIMES DAILY, First dose on Sat06/29/21 at 0245, Until Discontinued, Clean incision with sterile saline or half strength hydrogen peroxide and apply aquaphor incision twice daily. Given 07/01/2021 8:56 AM EST 1 each Given 06/30/2021 9:00 PM EST 1 each Given 06/30/2021 8:37 AM EST 1 each povidone-iodine (Betadine Ophthalmic Prep) 5 % ophthalmic solution ONCE PRN, Starting on Sat06/28/21 at 0850, Until 07/01/21 at 1539, Intra-Operative (Intra-Procedure), Routine Given 06/28/2021 8:50 AM EST 60 mLs senna-docusate (Pericolace) 8.6-50 mg per tablet 2 tablet 2 tablet, Oral, 2 TIMES DAILY, First dose on Lyndsay 06/29/21 at 0245, Until Discontinued, Routine Given 07/01/2021 8:58 AM EST 2 tablets Given 06/30/2021 9:00 PM EST 2 tablets Given 06/30/2021 8:36 AM EST 2 tablets sodium chloride 0.9 % (flush) (BD PosiFlush Normal Saline 0.9) flush 5 mL 5 mL, Intravenous, 2 TIMES DAILY, First dose on Lyndsay 06/29/21 at 0245, Until Discontinued, Routine Given 07/01/2021 8:57 AM EST 5 mLs Given 06/30/2021 9:00 PM EST 5 mLs Given 06/30/2021 8:37 AM EST 5 mLs tamsulosin (Flomax) capsule 0.4 mg 0.4 mg, Oral, DAILY, First dose on Lyndsay 06/29/21 at 0900, Until Discontinued, DO NOT CRUSH OR OPEN, Routine Given 07/01/2021 8:58 AM EST 0.4 mg Given 06/30/2021 8:36 AM EST 0.4 mg Given 06/29/2021 8:32 AM EST 0.4 mg documented in this encounter Active and Recently Administered Medications Times are shown in EST. Scheduled Medication Order 06/29/2021 06/30/2021 07/01/2021 acetaminophen (Tylenol) tablet 650 mg 650 mg, Oral, EVERY 4 HOURS SCHEDULED, First dose on Lyndsay 06/29/21 at 0045, Until Discontinued, Maximum dose of acetaminophen is 4000 mg from all sources in 24 hours. When ordered for pain, acetaminophen should be given even when other ordered pain medications are indicated. We do not order the liquid tylenol or ibuprofen because it has sorbitol and can contribute to diarrhea., Routine 0117 (Given - Provider: Gavi Padron RN)0519 (Given - Provider: Anthony Saravia RN)0942 (Given - Provider: Rachel Hernandez RN)1422 (Given - Provider: Rachel Hernandez RN - Comment: L eye)1715 (Given - Provider: Rachel Hernandez RN)2200 (Given - Provider: Olivia Mcgowan RN) 0200 (Given - Provider: Olivia Mcgowan RN)0600 (Given - Provider: Olivia Mcgowan RN)1124 (Given - Provider: Rachel Hernandez, EUSEBIO)1518 (Given - Provider: Rachel Hernandez RN)2000 (Canceled Entry - Provider: Olivia Mcgowan RN - Reason: See comment)2200 (Given - Provider: Olivia Mcgowan RN) 0200 (Given - Provider: Olivia Mcgowan RN)0600 (Given - Provider: Olivia Mcgowan RN)1136 (Given - Provider: Rachel Hernandez RN - Comment: l eye) ampicillin-sulbactam (Unasyn) 3 g vial attach to sodium chloride 0.9% 100 mL Mini-Bag Plus 3 g, Intravenous, EVERY 8 HOURS, 15 doses, First dose on Sat06/29/21 at 0600, Last dose on Sat07/03/21 at 2200, Administer over 30 Minutes, Warning Vesicant/Irritant Medication , Indication for (Active or Suspected): Prophylaxis 0545 (New Bag - Provider: Anthony Saravia RN)0615 (Stopped - Provider: Anthony Saravia RN)1422 (New Bag - Provider: Rachel Hernandez RN)1452 (Stopped - Provider: Rachel Hernandez RN)2123 (Stopped - Provider: Olivia Mcgowan RN)2200 (New Bag - Provider: Olivia Mcgowan RN) 0526 (Stopped - Provider: Olivia Mcgowan RN)0600 (New Bag - Provider: Oilvia Mcgowan RN)1402 (New Bag - Provider: Rachel Hernandez, EUSEBIO)1432 (Stopped - Provider: Rachel Hernandez, EUSEBIO)2200 (New Bag - Provider: Olivia Mcgowan RN)2230 (Stopped - Provider: Olivia Mcgowan RN) 0600 (New Bag - Provider: Olivia Mcgowan RN)0630 (Stopped - Provider: Olivia Mcgowan RN) atorvastatin (Lipitor) tablet 20 mg 20 mg, Oral, EVERY EVENING, First dose on Sat06/29/21 at 1700, Until Discontinued, Routine 1715 (Given - Provider: Rachel Hernandez RN) 1706 (Given - Provider: Rachel Hernandez RN) cyanocobalamin (Vitamin B-12) (Vitamin B-12) tablet 1,000 mcg 1,000 mcg, Oral, DAILY, First dose on Sat06/29/21 at 0900, Until Discontinued, Routine 0832 (Given - Provider: Rachel Hernandez RN) 0836 (Given - Provider: Rachel Hernandez RN) 0858 (Given - Provider: Rachel Hernandez RN) dorzolamide-timoloL (Cosopt) 2-0.5% ophthalmic solution 1 drop, Both Eyes, 2 TIMES DAILY, First dose on Sat06/29/21 at 0900, Until Discontinued, Routine 0834 (Given - Provider: Rachel Hernandez RN)2035 (Given - Provider: Olivia Mcgowan RN) 0836 (Given - Provider: Rachel Hernandez, EUSEBIO)2100 (Given - Provider: Olivia Mcgowan RN) 0857 (Given - Provider: Rachel Hernandez RN) erythromycin (Romycin) 5 mg/gram (0.5 %) ophthalmic ointment (CANCELED) Left Eye, 4 TIMES DAILY, First dose on Sat06/29/21 at 0900, 20 doses, Last dose on Sat07/03/21 at 2100 0833 (Given - Provider: Rachel Hernandez RN)1257 (Given - Provider: Rachel Hernandez RN) erythromycin (Romycin) 5 mg/gram (0.5 %) ophthalmic ointment Left Eye, 6 TIMES DAILY, First dose (after last modification) on Sat06/29/21 at 1600, Until Discontinued 1540 (Given - Provider: Rachel Hernandez RN)1809 (Given - Provider: Rachel Hernandez RN)2200 (Given - Provider: Olivia Mcgowan RN) 0700 (Not Given - Provider: Olivia Mcgowan RN - Reason: Patient/family refused)1124 (Given - Provider: Rachel Hernandez RN)1352 (Given - Provider: Rachel Hernandez RN)1518 (Given - Provider: Rachel Hernandez, EUSEBIO)1801 (Given - Provider: Rachel Hernandez, EUSEBIO)2200 (Given - Provider: Olivia Mcgowan, EUSEBIO) 0700 (Given - Provider: Olivia Mcgowan RN)0906 (Given - Provider: Rachel Hernandez RN)1300 (Due) FLUoxetine (PROzac) capsule 10 mg 10 mg, Oral, DAILY, First dose on Lyndsay 06/29/21 at 0900, Until Discontinued, Routine 0832 (Given - Provider: Rachel Hernandez RN) 0836 (Given - Provider: Rachel Hernandez RN) 0858 (Given - Provider: Rachel Hernandez RN) heparin (porcine) (5,000 units/1 mL) subcutaneous injection 5,000 Units 5,000 Units, Subcutaneous, EVERY 8 HOURS SCHEDULED, First dose on Lyndsay 06/29/21 at 0600, Until Discontinued, Routine 0519 (Given - Provider: Anthony Saravia RN)1423 (Given - Provider: Rachel Hernandez RN)2103 (Given - Provider: Olivia Mcgowan RN) 0506 (Given - Provider: Olivia Mcgowan RN)1402 (Given - Provider: Rachel Hernandez RN)2200 (Given - Provider: Olivia Mcgowan RN) 0554 (Given - Provider: Olivia Mcgowan RN) ibuprofen (Motrin) tablet 400 mg 400 mg, Oral, EVERY 6 HOURS SCHEDULED, First dose on Lyndsay 06/29/21 at 0045, Until Discontinued, Administer orally with milk or food to minimize GI irritation. Maximum dose of 3,200 mg from all sources in 24 hours. We do not order the liquid tylenol or ibuprofen because it has sorbitol and can contribute to diarrhea., Routine 0117 (Given - Provider: Gavi Padron RN)0519 (Given - Provider: Anthony Saravia RN)1141 (Given - Provider: Rachel Hernandez RN - Comment: left eye)1715 (Given - Provider: Rachel Hernandez RN - Comment: L eye) 0000 (Given - Provider: Olivia Mcgowan RN)0600 (Given - Provider: Olivia Mcgowan RN)1124 (Given - Provider: Rachel Hernandez RN)1706 (Given - Provider: Rachel Hernandez, EUSEBIO) 0000 (Given - Provider: Olivia Mcgowan RN)0600 (Given - Provider: Olivia Mcgowan RN)1136 (Given - Provider: Rachel Hernandez RN) loperamide (Imodium A-D) capsule 2 mg 2 mg, Oral, DAILY, First dose on Lyndsay 06/29/21 at 0900, Until Discontinued, Do not exceed 16 mg/day., Routine 0832 (Given - Provider: Rachel Hernandez RN) 0836 (Given - Provider: Rachel Hernandez RN) 0858 (Given - Provider: Rachel Hernandez RN) pantoprazole EC (Protonix) tablet 20 mg 20 mg, Oral, DAILY, First dose on Lyndsay 06/29/21 at 0900, Until Discontinued 0833 (Given - Provider: Rachel Hernandez RN) 0836 (Given - Provider: Rachel Hernandez RN) 0858 (Given - Provider: Rachel Hernandez RN) pantothenic Ac-Min Oil-Pet,Hyd (Aquaphor) 41 % ointment 1 each 1 each, Topical (Top), 2 TIMES DAILY, First dose on Lyndsay 06/29/21 at 0245, Until Discontinued, Clean incision with sterile saline or half strength hydrogen peroxide and apply aquaphor incision twice daily. 0245 (Not Given - Provider: Anthony Saravia RN - Reason: See comment - Comment: applied in pacu)0849 (Given - Provider: Rachel Hernandez RN)2100 (Not Given - Provider: Olivia Mcgowan RN - Reason: Patient/family refused) 0837 (Given - Provider: Rachel Hernandez RN)2100 (Given - Provider: Olivia Mcgowan RN) 0856 (Given - Provider: Rachel Hernandez RN) senna-docusate (Pericolace) 8.6-50 mg per tablet 2 tablet 2 tablet, Oral, 2 TIMES DAILY, First dose on Lyndsay 06/29/21 at 0245, Until Discontinued, Routine 0245 (Not Given - Provider: Anthony Saravia RN - Reason: Patient/family refused)0833 (Given - Provider: Rachel Hernandez RN)2100 (Not Given - Provider: Olivia Mcgowan RN - Reason: Patient/family refused) 0836 (Given - Provider: Rachel Hernandez RN)2100 (Given - Provider: Olivia Mcgowan RN) 0858 (Given - Provider: Rachel Hernnadez RN) sodium chloride 0.9 % (flush) (BD PosiFlush Normal Saline 0.9) flush 5 mL 5 mL, Intravenous, 2 TIMES DAILY, First dose on Lyndsay 06/29/21 at 0245, Until Discontinued, Routine 0227 (Given - Provider: Anthony Saravia RN)0834 (Given - Provider: Rachel Hernandez RN)2100 (Given - Provider: Olivia Mcgowan RN) 0837 (Given - Provider: Rachel Hernandez RN)2100 (Given - Provider: Olivia Mcgowan RN) 0857 (Given - Provider: Rachel Hernandez RN) tamsulosin (Flomax) capsule 0.4 mg 0.4 mg, Oral, DAILY, First dose on Lyndsay 06/29/21 at 0900, Until Discontinued, DO NOT CRUSH OR OPEN, Routine 0832 (Given - Provider: Rachel Hernandez RN) 0836 (Given - Provider: Rachel Hernandez RN) 0858 (Given - Provider: Rachel Hernandez RN) Continuous Medication Order 06/29/2021 06/30/2021 07/01/2021 sodium chloride 0.9% infusion (CANCELED) 100 mL/hr, Intravenous, CONTINUOUS, Starting on Lyndsay 06/29/21 at 0045, Until Lyndsay 06/29/21 at 0638 0100 (New Bag - Provider: Gavi Padron RN)0227 (New Bag - Provider: Anthony Saravia, EUSEBIO)0638 (Stopped - Provider: Anthony Saravia RN) PRN Medication Order 06/29/2021 06/30/2021 07/01/2021 carboxymethylcellulose (Refresh Plus) 0.5 % ophthalmic drops 1 drop 1 drop, Both Eyes, 3 TIMES DAILY PRN, Starting on Lyndsay 06/29/21 at 0156, Until 07/01/21 at 1539, Dry Eyes, Routine 0833 (Given - Provider: Rachel Hernandez RN) carboxymethylcellulose (Refresh Plus) 0.5 % ophthalmic drops 1 drop (CANCELED) 1 drop, Left Eye, 3 TIMES DAILY PRN, Starting on Lyndsay 06/29/21 at 0135, Until Lyndsay 06/29/21 at 0314, Dry Eyes, for comfort, Routine 228 (Given - Provider: Anthony Saravia RN) HYDROmorphone (Dilaudid) (0.5 mg/0.5 mL) injection syringe 0.2 mg 0.2 mg, Intravenous, EVERY 2 HOURS PRN, Starting on Lyndsay 06/29/21 at 0156, Until 07/01/21 at 1539, Pain, For breakthrough pain, Routine lidocaine (Xylocaine) 1% (10 mg/mL) injection 3 mg 3 mg (0.3 mL), Subcutaneous, ONCE PRN, 1 dose, Starting on Lyndsay 06/29/21 at 0156, Until 07/01/21 at 1539, for discomfort with PIV insertion, Routine ondansetron (pf) (Zofran) (2 mg/mL) injection 4 mg 4 mg, Intravenous, EVERY 8 HOURS PRN, Starting on Lyndsay 06/29/21 at 0156, Until 07/01/21 at 1539, Nausea, Vomiting oxyCODONE (Roxicodone) tablet 5-10 mg 5-10 mg, Oral, EVERY 3 HOURS PRN, Starting on Lyndsay 06/29/21 at 0016, Until 07/01/21 at 1539, Pain, Give 5 mg for pain 1-5; Give 10 mg for pain 6-10, Routine 226 (Given - Provider: Anthony Saravia RN)518 (Given - Provider: Anthony Saravia RN) polyethylene glycoL (Miralax) packet 17 g 17 g, Oral, DAILY PRN, Starting on Lyndsay 06/29/21 at 0156, Until 07/01/21 at 1539, Constipation, Give scheduled bowel meds, then start with Miralax, and then bisacodyl suppository in order to achieve one bowel movement every 48 hours without straining., Routine prochlorperazine (Compazine) (5 mg/mL) injection 10 mg 10 mg, Intravenous, EVERY 6 HOURS PRN, Starting on Lyndsay 06/29/21 at 0156, Until 07/01/21 at 1539, Nausea, Vomiting, Administer Zofran first, then Compazine, Routine sodium chloride 0.9 % (flush) (BD PosiFlush Normal Saline 0.9) flush 5-20 mL 5-20 mL, Intravenous, EVERY 1 MIN PRN, Starting on Lyndsay 06/29/21 at 0156, Until 07/01/21 at 1539, flush, Flush pertains to all indwelling lines. Flush per protocol found in the job aid using the link provided on this medication record., Routine documented in this encounter Care Teams Instrument Assembly Supervisor Relationship 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
--- OUTSIDE RECORDS SUMMARY | 2024-02-10 15:17 | XMS_ITS | Encounter Summary ---
Author Organization [facility] [place] [address] Care Team Providers Care Lumber Kiln Operator Name Role Phone Ilya Medina MD Primary Care Provider [phone] Encounter Details Date Type Department Care Team (Late Contact Info) Description 06/06/2021 Telephone Hematology [place] [phone] Cuca Boo Social History Tobacco Use Types [...] * Telephone Encounter - Cuca Boo - 06/06/2021 2:22 PM EST Community Health Jewelry Sales Representative called Suman, I was unable to leave a message. Automated message stated that wireless caller is not available. Will try again. Cuca Boo documented in this encounter Plan of Treatment Upcoming Encounters Date Type Department Care Team (Late Contact Info) Description 04/29/2024 11:00 AM EST Office Visit Radiation Oncology at [address] [phone] Tyrese Fitzgerald MD [facility] [place] [address] documented as of this encounter Visit Diagnoses Not on filedocumented in this encounter Care Teams Lumber Kiln Operator Relationship 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
--- OUTSIDE RECORDS SUMMARY | 2024-02-10 15:17 | XMS_ITS | Encounter Summary ---
Author [facility] [place] [address] Care Team Providers Care Roof Tile Layer Name Role Phone Ilya Medina MD Primary Care Provider [phone] Encounter Details Date Type Department Care Team (Late st Contact Info) Description 07/10/2021 Telephone [place] [phone] Leatha Price RN Social History Tobacco Use Types Packs/Day [...] encounter Miscellaneous Notes * Telephone Encounter - Leatha Price RN - 07/10/2021 1:08 PM EST Caller: Raven Relationship: Spouse/Significant Other Clarified Two Patient Identifiers: [x] Reason For Call: Unable to close left eye, left side of mouth is drooping Assessment/Symptom Review (onset, location, duration, what makes it better or worse, pertinent positives and negatives): Date of procedure: 06/28/21 Type of procedure Mastoidectomy, parotidectomy, cervical lymphadenectomy Pain: no Swelling: no Drainage: no Fever/Chills: no Diet/hydration status: good Medications: n/a Patient's called stating that it seems that since his surgery he has been having progressivelyworsening issues with his facial nerve. She state that he is now not able to completely close his left eye and the left side of his mouth is drooping. He had previously been able to whistle, he is nolonger able to do this and he can not spit anymore either, his speech is somewhat effected by this as well. Review of Systems Related to Reason for Call: System POS NEG Not Applicable Head (ENT /Neuro) [x] [] [] Cardiac [] [] [x] Respiratory [] [] [x] GI [] [] [x] [] [] [x] Musculoskeletal [] [] [x] Integumentary [] [] [x] Mental Health [] [] [x] Select Specific Decision Support Tool Used: Discussed with Dr Hernández. He would like to have this patient started on 60 mg prednisone daily for 7 days as well as 500 mg valtrex daily for 7 days. He recommends the patient use artificial tears as much as possible to that left eye to keep it moisturized. Disposition/Plan of Care: Follow home care directions as noted Follow-up in clinic as planned Patient/Caregiver verbalizes understanding of plan of care: Yes Patient/Caregiver agrees with plan: Yes Advised patient/caregiver to: call office back for any new or worsening symptoms Patient/Caregiver demonstrates understanding via teach back: Yes documented in this encounter Plan of Treatment Upcoming Encounters Date Type Department Care Team (Late st Contact Info) Description 04/29/2024 11:00 AM EST Office Visit Radiation Oncology at [address] [phone] Tyrese Fitzgerald MD [facility] [place] [address] documented as of this encounter Visit Diagnoses Not on filedocumented in this encounter Care Teams Roof Tile Layer Relationship 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
--- OUTSIDE RECORDS SUMMARY | 2024-02-10 15:17 | XMS_ITS | Encounter Summary ---
Author Organization [facility] [address] Care Team Providers Care It Technical Support Specialist Name Role Phone Ilya Medina MD Primary Care Provider [phone] Encounter Details Date Type Department Care Team (Latest Contact Info) Description 07/13/2021 Multidisciplinary Ca re [place] [phone] Jayne Darby MD [facility] [place] [address] Social History Tobacco Use Types Packs/Day Years [...] Progress Notes * Jayne Darby MD - 07/13/2021 6:48 AM EST Images from the original note were not included. 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 male who presents with SCCa ofthe LEFT ear. Reports??constant otorrhea on the left since Spring 2020. Associated symptoms include??diminished hearing. Denies??fluctuation in hearing, facial weakness/facial spasm, tinnitus, dizzine ss/vertigo.??Prior history of chronic middle ear disease with otologic surgical history pertinent for??Left modified radical CWD tymp/mastoid in 1968 ([place]) for cholesteatoma, Left revision tymp/mastoid-OCR 20 years ago, and Right modified radial CWD tymp/mastoid [place] [address] Linda.??Pa thology??pertinent for SCCa diagnosed by Dr. Trinidad. PMH pertinent for??HTN, HPL, SARITA, GERD, glaucoma, and anxiety.?? Surgical Resection by Dr. Hernández & Dr. Hoang (06/28/2021) 1. Left Subtotal Temporal Bone Resection in setting of Prior Canal Wall Down Mastoidectomy 2. Left Neck Dissection Level IB, IIA, & III 3. Left Superficial Inferior Lobe Parotidectomy 4. Left Submental Myocutaneous Flap (5 cm x 8 cm) Findings: Surgical Resection with Left Subtotal Temporal [...] hypotympanum which easily elevated off the bone. ?? Left Neck Dissection Level IB, IIA, & [...] remained with treatment with topical 4% lidocaine. Pathology Surgical Pathology DIAGNOSIS A - LEFT SUPERIOR MEDIAL MARGIN, biopsy: ??- Invasive squamous cell carcinoma (1.5 mm focus) involving the ? specimen margin abutting tympanic membrane. ?(see Discussion.) B - LEFT posterior/lateral mastoid contents, biopsy: ??- Hyperkeratotic squamous epithelium and fibrous soft tissue. ??- Acellular keratinous debris. ??- ??There is no evidence of malignancy. C [...] excision: ??- Sclerotic fibrous tissue and cartilage, ?negative for malignancy. K - LEFT neck level 3, excision: ??- Nine lymph node, ??negative for malignancy.??(0/9) L - LEFT parotid, excision: ??- Parotid gland tissue, ?? negative for malignancy. M - LEFT superficial lobe of parotid, excision: ??- Parotid gland, fibrous tissue, and nerve tissue, ? negative for malignancy. ??- Four lymph nodes, ?? negative for malignancy. (0/4) N - Left perifacial node, excision: ??- Two lymph nodes, ??negative for malignancy. (0/2) O - Left neck level 1B, excision: ??- Submandibular gland tissue, ?? negative for malignancy. ??- Fibroadipose tissue, ?? negative for malignancy. Electronically signed by: ?MD Mirza, Anthony CantuBartolome Verified: ??07/05/2021 12:00 ??Pathologist Performed at: ??-[facility] Dept. of Pathology, [place], [place] DISCUSSION It is difficult to assign an AJCC pathologic stage due to the inability to assess ??largest tumor dimension. No ?? perineural or lymphovascular invasion is recognized. ??Clinical/surgical correlation is needed to determine final margin status with regard ??to separately submitted involved specimens. Imaging PET 05/04/2021 HEAD/NECK: Small ill-defined focus of mildly increased activity in the region of the inferior left middle ear (axial image 47). Status post bilateral tympanomastoidectomy. No lymphadenopathy. ?? CHEST: Multiple small FDG avid lymph nodes in the left axilla, consistent with benign reactive nodes due to recent Covid vaccination. Normal activity in all other soft tissue regions. No significant adenopathy or pulmonary nodules. ?? ABDOMEN/PELVIS: Normal activity in all soft tissue regions. No lymphadenopathy. ?? SKELETON/EXTREMITIES: Normal activity in all regions of the axial and visualized appendicular skeleton. ?? IMPRESSION 1. Small ill-defined focus of mildly increased activity in the region of the inferior left middle ear, which is nonspecific and may represent an area of chronic inflammation, however, a neoplastic process not excluded. 2. No other significant abnormalities. Tumor Board Recs Patient is staged at a pT3 based on Modified [place] Staging System for Temporal Bone SCCa. We [...] the round window), jugular and carotid canal. 1. Referral to Rad/Onc for Adjuvant Radiation (Referral Placed). * (Based on past studies and the information available at the time of presentation) Specific treatment to be undertaken must ultimaly be determined on an individual basis by the patient and those invoved in her/his treatment) documented in this encounter Plan of Treatment Upcoming Encounters Date Type Department Care Team (Late st Contact Info) Description 04/29/2024 11:00 AM EST Office Visit Radiation Oncology at [address] [phone] Tyrese Fitzgerald MD [facility] [place] [address] documented as of this encounter Visit Diagnoses Not on filedocumented in this encounter Care Teams It Technical Support Specialist Relationship 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
--- OUTSIDE RECORDS SUMMARY | 2024-02-10 15:17 | XMS_ITS | Encounter Summary ---
Author Organization [facility] [place] [address] Care Team Providers Care Infrastructure Project Manager Name Role Phone Ilya Medina MD Primary Care Provider [phone] Encounter Details Date Type Department Care Team (Late st Contact Info) Description 07/11/2021 Telephone [place] [phone] Nga Winter RN Social History Tobacco Use Types Packs/Day [...] encounter Miscellaneous Notes * Telephone Encounter - Nga Winter RN - 07/11/2021 2:26 PM EST Patient's call returned. Patient had left VM on nurse triage line last evening stating he didn't received the [address] Hernández was sending to the pharmacy. At the time of this call, all prescriptions have been sent and patient has stated the medications of valACYclovir (Valtrex) 500 mgTablet and predniSONE (Deltasone) 20 mg Tablet have been received and started. Patient also has appo intment scheduled with Dr. Hernández tomorrow. No other questions or concerns at this time. documented in this encounter Plan of Treatment Upcoming Encounters Date Type Department Care Team (Late st Contact Info) Description 04/29/2024 11:00 AM EST Office Visit Radiation Oncology at [address] [phone] Tyrese Fitzgerald MD [facility] [place] [address] documented as of this encounter Visit Diagnoses Not on filedocumented in this encounter Care Teams Infrastructure Project Manager Relationship 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
--- OUTSIDE RECORDS SUMMARY | 2024-02-10 15:17 | XMS_ITS | Encounter Summary ---
Author Organization [facility] Address [facility] [place] [address] Care Team Providers Care Automotive Software Engineer Name Role Phone Ilya Medina MD Primary Care Provider [phone] Encounter Details Date Type Department Care Team (Latest Contact Info) Description 07/19/2021 3:40 PM EST Office [place] [address] Apolinar Hernández MD [facility] [place] [address] Cancer of temporal bone; Status post neck [...] Progress Notes * Apolinar Hernández MD - 07/19/2021 3:40 PM EST See signed note this date by Drs. Darby and Viktor. No additional visit charge. 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
--- OUTSIDE RECORDS SUMMARY | 2024-02-10 15:17 | XMS_ITS | Encounter Summary ---
Author Organization [facility] [place] [address] Care Team Providers Care Cocoa Milling Machine Operator Name Role Phone Ilya Medina MD Primary Care Provider [phone] Encounter Details Date Type Department Care Team (Late Contact Info) Description 07/13/2021 Telephone Radiation Oncology at [address] [phone] Michelle Mario Social History Tobacco [...] EST Office Visit Radiation Oncology at [address] [phone] Tyrese Fitzgerald MD [facility] [place] [address] documented as of this encounter Visit Diagnoses Not on filedocumented in this encounter Care Teams Cocoa Milling Machine Operator Relationship 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
--- OUTSIDE RECORDS SUMMARY | 2024-02-10 15:17 | XMS_ITS | Encounter Summary ---
Author Organization [facility] Address [facility] [place] [address] Care Team Providers Care Fixed Income Trading Vice President Name Role Phone Ilya Medina MD Primary Care Provider [phone] Encounter Details Date Type Department Care Team (Late st Contact Info) Description 06/19/2021 Telephone Hematology [place] [phone] Cuca Boo Social History Tobacco Use Types [...] * Telephone Encounter - Cuca Boo - 06/19/2021 11:38 AM EST Community Health Licensing Specialist spoke to Suman today. We chatted about some resources. I have requested a $50 gas card from [facility]. I have sent him a list of the local pantries in their area. This could allow them to cost shift. 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 I have provided him the website link and number 019-878-7747 to [employer] for fuel assistance. I have suggested they check out [facility] for mortgage/property tax assistance if needed. I suggested we apply for [facility] davie as he has had and income decrease. He has not heard from [facility],he said his OOP medical bill is up to $8K. I sent him their application by email. Cuca Boo documented in this encounter Plan of Treatment Upcoming Encounters Date Type Department Care Team (Late st Contact Info) Description 04/29/2024 11:00 AM EST Office Visit Radiation Oncology at [address] [phone] Tyrese Fitzgerald MD [facility] [place] [address] documented as of this encounter Visit Diagnoses Not on filedocumented in this encounter Care Teams Fixed Income Trading Vice President Relationship 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
--- OUTSIDE RECORDS SUMMARY | 2024-02-10 15:17 | XMS_ITS | Encounter Summary ---
Author Organization [facility] [place] [address] Care Team Providers Care Steam Gigger Name Role Phone Ilya Medina MD Primary Care Provider [phone] Encounter Details Date Type Department Care Team (Late Contact Info) Description 06/12/2021 Telephone Hematology [place] [phone] Cuca Boo Social History Tobacco [...] * Telephone Encounter - Cuca Boo - 06/12/2021 2:34 PM EST [facility] Electronic Gluer LVM with [facility]uman to return my call. I would like to chat with him about community resources. Cuca Boo documented in this encounter Plan of Treatment Upcoming Encounters Date Type Department Care Team (Late Contact Info) Description 04/29/2024 11:00 AM EST Office Visit Radiation Oncology at [address] [phone] Tyrese Fitzgerald MD [facility] [place] [address] documented as of this encounter Visit Diagnoses Not on filedocumented in this encounter Care Teams Steam Gigger Relationship 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
--- OUTSIDE RECORDS SUMMARY | 2024-02-10 15:17 | XMS_ITS | Encounter Summary ---
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 Procedures PRO RESECT TEMPORAL BONE, BROACH OPERATOR APPRCH PRO MASTOIDECTOMY, COMPLETE PRG SOMATOSENSORY TEST, [...] Expiration Date Visits Re quested Visits Authorized [id number] 1 1 Encounter Details Date Type Department Care Team (Latest Contact Info) Description 06/28/2021 5:46 AM EST - 07/01/2021 1:38 PM [facility] [place] [address] Apolinar Hernández MD [facility] [place] [address] 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, except mandible; Cancer of temporal bone; Postoperative examination; S/P tympanoplasty; 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 Linda.??Pathology??pertinent for SCCa diagnosedby Dr. Trinidad. [facility] pertinent for??HTN, HPL, SARITA, GERD, glaucoma, and [...] please callthe Ophthalmology department right away at: [phone] You should call your doctor if you develop: -Increasing pain and redness -Increasing drainage from the wound -Fever > 38.5Celsius or 101 Fahrenheit -Bleeding Contact: -You can reach the ENT clinic at [phone] for appointment questions. -The ENT triage nurse is available at [phone] -For urgent issues during evenings (5 PM - 7 AM) and weekends the ENT resident technology infusion specialist can be reached through the main hospital glue drier operator at [phone] Follow Up: You will need to follow up with ENT in 1 week. This appointment has been requested. You will be notified once it is scheduled, if you do not already see it below. If you do not hear from us in a timely manner, please call [phone] to receive your date and time. Currently Scheduled Appointments and VNA instructions: Future Appointments and Orders Future Appointments and Orders Future Appointments Provider Department Dept Phone 07/12/2021 9:40 AM Apolinar Hernández MD Otolaryngology at [facility] Arrive at: Standards Analyst Area [phone] 08/04/2021 10:30 AM Apolinar Hernández MD Otolaryngology at [facility] Arrive at: Standards Analyst Area [phone] 10/06/2021 11:30 AM Apolinar Hernández MD Otolaryngology at [facility] Arrive at: Standards Analyst Area [phone] Future Orders Complete By Expires Referral to Home Health - at DISCHARGE [GOC2669 CPT(R)] As directed Process Instructions: Scheduling Instructions: Comments: DOCUMENTATION FOR VNA SERVICES (INCLUDING THOSE PATIENTS WITH MEDICARE COVERAGE REQUIRING HOME VNA SERVICES AND/OR HOSPICE SERVICES) PATIENT'S LOCATION: Suman Warner [address] [facility] [address] (home) Cell: Telephone Information: Fleece Tier's Name: Raven In discussion with the attending physician, it is certified that this patient is under their care and that they, or a Nurse Practitioner,Clinical Nurse specialist or Physician Mercury Cracking Tester who is working directly with them, had [...] MAURO drain care. HOME HEALTH CARE AGENCY: [facility] PHONE: [phone] FAX: [phone] Start of care: Within 24 to 48 [...] MD [address] / [place] [id number] All A agencies which cover the area of patient's residence have been reviewed, either verbally maría writing, and patient/family have chosen the home health care agency noted Questions: Agency name and contact information: [facility] Patient location post discharge: home [facility] What services are requested: Registered Nurse [...] __ Primary Care Doctor: Ilya Medina MD [phone] Signed: Allegra Aldana MD 07/01/2021 documented in this encounter Discharge Instructions * Discharge Instructions* Allegra Aldana MD - 07/01/2021 10:15 AM EST Images from the original note were not included. MAURO DRAIN CARE INSTRUCTIONS General Information: Drains [...] please callthe Ophthalmology department right away at: [phone] You should call your doctor if you develop: -Increasing pain and redness -Increasing drainage from the wound -Fever > 38.5Celsius or 101 Fahrenheit -Bleeding Contact: -You can reach the ENT clinic at [phone] for appointment questions. -The ENT triage nurse is available at [phone] -For urgent issues during evenings (5 PM - 7 AM) and weekends the ENT resident technology infusion specialist can be reached through the main hospital glue drier operator at [phone] Follow Up: You will need to follow [...] 9:40 AM Apolinar Hernández MD Otolaryngology at [facility] Arrive at: Standards Analyst Area [phone] 08/04/2021 10:30 AM Apolinar Hernández MD Otolaryngology at [facility] Arrive at: Standards Analyst Area [phone] 10/06/2021 11:30 AM Apolinar Hernández MD Otolaryngology at [facility] Arrive at: Standards Analyst Area [phone] Future Orders Complete By Expires Referral to Home Health - at DISCHARGE [[id number] CPT(R)] As directed Process Instructions: Scheduling Instructions: Comments: DOCUMENTATION FOR VNA SERVICES (INCLUDING THOSE PATIENTS WITH MEDICARE COVERAGE REQUIRING HOME VNA SERVICES AND/OR HOSPICE SERVICES) PATIENT'S LOCATION: Suman Warner [address] [facility] [address] (home) Cell: Telephone Information: Fleece Tier's Name: Raven In discussion with the attending physician, it is certified that this patient is under their care and that they, or a Nurse Practitioner,Clinical Nurse specialist or Physician Mercury Cracking Tester who is working directly with them, had [...] MAURO drain care. HOME HEALTH CARE AGENCY: [facility]. PHONE: [phone] FAX: [phone] Start of care: Within 24 to 48 [...] PCP: MD Nika [address] / [facility] [address] All A agencies which cover the area of patient's residence have been reviewed, either verbally maría writing, and patient/family have chosen the home health care agency noted Questions: Agency name and contact information: [facility] Patient location post discharge: [facility] What services are requested: Registered Nurse Start [...] history (see PSH). 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 Home set-up: 2 level home Stairs: 4 steps with rail to enter, FOS w/ rail to 2nd level of home. Tub shower w/ grab bars. Baseline Mobility: Independent & working Precautions/Special Considerations: Keep head neutral , no turning head to Right. Ambulate every shift/AAT, up with assistance post-op, regular diet. ALTURAS, hearing aide R ear. Corneal abrasion L [...] was left in recliner chair with call sifuenets within reach and seat alarm in place. [...] met, no PT needs, amb w/ [facility] staff). Goals met. No further PT needs. Amb with mob factory maintenance technician this afternoon and nursing over weekend. [...] for this consult. MAYTE BECKFORD, PT Pager: [phone] Physical Therapy Inpatient Rehabilitation Department Time IN / OUT: 9:50-10:10 Total Minutes, Physical Therapy: (-) 2016 PT Evaluation Code Rationale: ?? Diagnosis [...] a 66 y.o. male with PMH of [id number] SCCa of the Left Middle Ear/Tympanic Membrane [...] PGY1 06/30/21 7:25 AM ENT Team Pager: [phone] Associated attestation - Apolinar Hernández MD - [...] Neurotology Otolaryngology - Head & Neck Surgery [facility] * Mayte Beckford, PT - 06/29/2021 [...] 0.54) performed by Apolinar Hernández MD at [facility] OR ??? PRG SOMATOSENSORY TEST, ANY/ALL PER. NERVES, TRUNK OR HEAD Left 06/28/2021 FACIAL NERVE MONITORING, SETUP PERIPHERAL (WRVU 0.54) performed by Apolinar Hernández MD at [facility] OR ??? PRO ADJ TISS TRANSFER/REARRANGEMENT ANY AREA 30.1-60 SQCM Left 06/28/2021 ADJACENT TISSUE TRANSFER OR REARRANGEMENT; 30.1 TO 60.0 SQ CM, HEAD/NECK (WRVU 12.65) performed by Jose D Hoang MD at [facility] OR ??? PRO COLONOSCOPY, BIOPSY 10/09/2012 COLONOSCOPY FLEXIBLE, WITH BX performed by Xiang Owen MD at [facility] ENDOSCOPY ??? PRO EXC PAROTD, TOTAL, DISSECT 5TH NERV Left 06/28/2021 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, TOTAL, WITH DISSECTION AND PRESERVATION OF FACIAL NERVE(WRVU 19.53) performed by Jose D Hoang MD at [facility] OR ??? PRO MASTOIDECTOMY, COMPLETE Left 06/28/2021 MASTOIDECTOMY, COMPLETE (WRVU 12.56) performed by Apolinar Hernández MD at [facility] OR ??? PRO MICROSURG TECHNIQUES, REQ OPER MICROSCOPE Left 03/31/2021 MICROSCOPE USE (WRVU 3.46) performed by Apolinar Hernández MD at [facility] OR ??? PRO MICROSURG TECHNIQUES, REQ OPER MICROSCOPE N/A 06/28/2021 MICROSCOPE USE (WRVU 3.46) performed by Apolinar Hernández MD at [facility] OR ? ? PRO MUSCLE MYOCUTANEOUS/FASCIOUCUTANEOUS FLAP HEAD&NECK W/NAMED VASC PEDCL Left 06/28/2021 FLAP, MYOCUTANEOUS OR FASCIOCUTANEOUS, HEAD & NECK W NAMED VASC PEDICLE performed by Jose D Hoang MD at [facility] OR ??? PRO REMOVAL NODES, NECK, CERV MOD RAD Left 06/28/2021 @CERVICAL LYMPHADENECTOMY (MODIFIED RADICAL NECK DISSECTION) (WRVU 23.95) performed by Jose D Hoang MD at [facility] OR ??? PRO RESECT TEMPORAL BONE, BROACH OPERATOR APPRCH Left 06/28/2021 @RESECTION TEMPORAL BONE, EXTERNAL APPROACH (WRVU 37.42) performed by Apolinar Hernández MD at [facility] PRO ??? PRO TYMPANOPLASTY Left 03/31/2021 TYMPANOPLASTY (WRVU 10.05) performed by Apolinar Hernández MD at [facility] MAIN OR ??? PRO UPPER GI ENDOSCOPY, BIOPSY 03/20/2011 UPPER GASTROINTESTINAL ENDOSCOPY,WITH BIOPSY SINGLE OR MULTIPLE performed by JORDAN RAMOS at [facility] ENDOSCOPY Active Non-Hospital Problems Diagnosis ??? Viral warts ??? Diarrhea ??? Chilblains ??? Visit for suture removal ??? Nevus ??? Dizziness ??? GERD (gastroesophageal reflux disease) ??? Chronic serous otitis media ??? Dysplastic nevus ??? Atypical nevus ??? 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 Home set-up: 2 level home Stairs: 4 steps with rail to enter, FOS w/ rail to 2nd level of home. Tub shower w/ grab bars. Baseline Mobility: Independent & working Precautions/Special Considerations: Keep head neutral , no turning head to Right. Ambulate every shift/AAT, up with assistance post-op, regular diet. ALTURAS, hearing aide R ear. Corneal abrasion L eye with tearing and report of blurred vision post-op, usually wears glasses/contact. Mobility and Positioning Recommendations: ?? Pt. should utilize CGA close supervision of staff for ambulation and transfers : with [facility] staff. ?? Please encourage up to chair [...] for this consult. MAYTE BECKFORD, PT Pager: [phone] Physical Therapy Inpatient Rehabilitation Department Time IN [...] a 66 y.o. 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 OTOLARYNGOLOGY - HEAD & NECK SURGERY POST OP CHECK Name: Suman Warner Age/Sex: 66 y.o. male Attending: Apolinar Hernández MD Hospital Day: 2 1 Day Post-Op Patient ID/Reason for Admission Suman Warner is a 66 y.o. male [id number]??SCCa of the??Left??Middle Ear/Tympanic Membrane??in the Hypotympanum Interval [...] PGY1 06/29/21 5:10 AM ENT Team Pager: [phone] * Gavi Padron RN - 06/28/2021 9:10 [...] meets PACU discharge criteria. Awaiting callback from NSCU nurse to give report. documented in this [...] scheduled operation. Jayne Darby MD, PGY5, Pager [phone] 06/28/21 6:39 AM ENT Team Pager: [phone] * Jayne Darby MD - 06/28/2021 6:38 [...] scheduled operation. Jayne Darby MD, PGY5, Pager [phone] 06/28/21 6:37 AM ENT Team Pager: [phone] Associated attestation - Apolinar Hernández MD - [...] Neurotology Otolaryngology - Head & Neck Surgery [facility] documented in this encounter Miscellaneous Notes * Initial Assessments - Maria D Reyes, ZACHARY - 07/01/2021 1:38 PM EST Occupational Therapy Treatment notes #2 Patient profile: Suman Warner is a 66 y.o. male admitted on 06/28/2021 with PMH of [id number]??SCCa of the??Left??Middle Ear/Tympanic Membrane??in the Hypotympanum who is s/p temporal bone resection, mastoidectomy, parotidectomy, left neck dissection and reconstruction with submental flap. Social History: Patient lives with his . 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 corrective lenses transmission supervisor either contacts or glasses. Sustained L corneal [...] Minutes, Occupational Therapy: 21 (1x theract) Pager: [phone] ZACHARY Orozco 07/01/2021 Occupational Therapy Rehabilitation Department [...] [X] Yes * Initial Assessments - Zoe Barboza OT - 06/29/2021 12:06 PM EST Occupational Therapy Evaluation Patient profile: Suman Warner is a 66 y.o. male admitted on 06/28/2021 with PMH of [id number]??SCCa of the??Left??Middle Ear/Tympanic Membrane??in the Hypotympanum who [...] 0.54) performed by Apolinar Hernández MD at [facility] MAIN OR ??? PRG SOMATOSENSORY TEST, ANY/ALL PER. NERVES, TRUNK OR HEAD Left 06/28/2021 FACIAL NERVE MONITORING, SETUP PERIPHERAL (WRVU 0.54) performed by Apolinar Hernández MD at [facility] OR ??? PRO ADJ TISS TRANSFER/REARRANGEMENT ANY AREA 30.1-60 SQCM Left 06/28/2021 ADJACENT TISSUE TRANSFER OR REARRANGEMENT; 30.1 TO 60.0 SQ CM, HEAD/NECK (WRVU 12.65) performed by Jose D Hoang MD at [facility] OR ??? PRO COLONOSCOPY, BIOPSY 10/09/2012 COLONOSCOPY FLEXIBLE, WITH BX performed by Xiang Owen MD at [facility] ENDOSCOPY ??? PRO EXC PAROTD, TOTAL, DISSECT 5TH NERV Left 06/28/2021 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, TOTAL, WITH DISSECTION AND PRESERVATION OF FACIAL NERVE(WRVU 19.53) performed by Jose D Hoang MD at [facility] OR ??? PRO MASTOIDECTOMY, COMPLETE Left 06/28/2021 MASTOIDECTOMY, COMPLETE (WRVU 12.56) performed by Apolinar Hernández MD at [facility] OR ??? PRO MICROSURG TECHNIQUES, REQ OPER MICROSCOPE Left 03/31/2021 MICROSCOPE USE (WRVU 3.46) performed by Apolinar Hernández MD at [facility] OR ??? PRO MICROSURG TECHNIQUES, REQ OPER MICROSCOPE N/A 06/28/2021 MICROSCOPE USE (WRVU 3.46) performed by Apolinar Hernández MD at [facility] OR ? ? PRO MUSCLE MYOCUTANEOUS/FASCIOUCUTANEOUS FLAP HEAD&NECK W/NAMED VASC PEDCL Left 06/28/2021 FLAP, MYOCUTANEOUS OR FASCIOCUTANEOUS, HEAD & NECK W NAMED VASC PEDICLE performed by Jose D Hoang MD at [facility] MAIN OR ??? PRO REMOVAL NODES, NECK, CERV MOD RAD Left 06/28/2021 @CERVICAL LYMPHADENECTOMY (MODIFIED RADICAL NECK DISSECTION) (WRVU 23.95) performed by Jose D Hoang MD at [facility] MAIN OR ??? PRO RESECT TEMPORAL BONE, BROACH OPERATOR APPRCH Left 06/28/2021 @RESECTION TEMPORAL BONE, EXTERNAL APPROACH (WRVU 37.42) performed by Apolinar Hernández MD at [facility] PRO ??? PRO TYMPANOPLASTY Left 03/31/2021 TYMPANOPLASTY (WRVU 10.05) performed by Apolinar Hernández MD at [facility] MA[facility] OR ??? PRO UPPER GI ENDOSCOPY, BIOPSY 03/20/2011 UPPER GASTROINTESTINAL ENDOSCOPY,WITH BIOPSY SINGLE OR MULTIPLE performed by JORDAN RAMOS at [facility]OS[facility] Social History: Patient lives with his . 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 corrective lenses transmission supervisor either contacts or glasses. Sustained L corneal [...] and measurable assessment of functional outcome. Pager: [phone] Zoe Barboza OT 06/29/2021 Occupational Therapy Rehabilitation Department * Initial Assessments - Phyllis Baez RN - 06/29/2021 8:55 AM EST Office of Care Management Initial Assessment Phyllis Baez RN reviewed record and discussed patient with Care Team. Source of Information: Team, bedside nurse, medical record, and Patient, Chart sr. manager corporate communications CM Introduced self/reviewed role; services accepted. Reason for Hospitalization: Planned surgery Covid Vaccination Status: 1st, 2nd & booster ([employer];also had PNA VAX this year) Last COVID [...] Home Address confirmed as: [address] [facility] [address] Social & Family Supports: All names listed [...] MEDICARE SUPPLEMENT Prescription Coverage: Yes Preferred Pharmacy: [id number] AT [address] [address] [place] Status: Patient is a : No Primary Care Provider: Ilya Medina MD [phone] Patient/Caregiver Goals of Treatment: return home with [...] where referrals are placed. Provided patient with CMS Star Quality Rating for Home care hand out. Patient requests referral to [facility] PHONE: [phone] FAX: [phone]. Expected date of discharge: 06/30/21. Referral routed to the [employer] for matching with agency/vendor and to provide [...] / pills okay. Agrees with referral to [facility] from [facility]. will be transporting pt home; gave CM contact number and will continue to follow. A member of the Care Management team will continue to monitor progress, follow for continuity of care and assist with transition of care planning. Barbara Baez RN BSN Neurology Cutter And PresserOffensive Coordinator of Care Management Pager [phone] * Brief Op Note - Caridad Sifuentes MD - 06/28/2021 11:27 PM EST Brief Operative Note Patient Name: Suman Warner : [id number] MR#: [id number] Case Date: 06/28/2021 Surgeon: Jose D Hoang MD Wise, Sean, MD Divakar, Prashanthi, MD Bell, Rebecca, MD Diagnosis: [id number] SCCa of the Left Middle Ear/Tympanic Membrane [...] Neurotology Otolaryngology - Head & Neck Surgery [facility] * Op Note - Jose D Hoang MD - 06/28/2021 9:10 AM EST [facility] Operative Note Patient Name: Suman Warner : [id number] MR#: [id number] Case Date: 06/28/2021 Surgeon: Jose D Hoang MD Divakar, Prashanthi, MD Bell, MD Caridad Diagnosis: [id number] SCCa of the Left Middle Ear/Tympanic Membrane [...] for Left modifiedradical CWD tymp/mastoid in 1968 ([place]) for cholesteatoma, Left revision tymp/mastoid-OCR 20 years [...] internal jugular vein and then using the [place] scissors to circumferentially remove this dina tissue [...] close the ear was repaired to the [place] auricle with chromic sutures. 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 Postoperative diagnosis: [id number] SCCa of the Middle Ear/Tympanic Membrane in [...] Question Answer Comment Clinical History and Diagnosis: [id number] 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 Specimen Source: Left Neck Level 1B Specimen Type: excision Time specimen removed from patient: 8:39 PM Number of tissue samples (in container) 1 06/28/21203806/28/212024 Specimen to Pathology (Multiple Specimen to Pathology requests panel ) ONE TIME Comments: Left Perifacial Node Question Answer Comment Clinical History and Diagnosis: [id number] 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 No Biospecimen to store? 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 No Biospecimen to store? 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 No Biospecimen to store? 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 No Biospecimen to store? 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 No Biospecimen to store? 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 No Biospecimen to store? 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 Specimen Source: LEFT SUPERIOR MEDIAL MARGIN, ORIENTATION PER CARD Specimen Type: biopsy Time specimen removed from patient: 11:54 AM Number of tissue samples (in container) 1 06/28/21 1154 06/28/21 1125 Specimen to Pathology ONE TIME Comments: OR#10, [id number] Question Answer Comment Clinical History and Diagnosis: 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 Specimen Source: LEFT anterolateral canal margin Specimen Type: biopsy Time specimen removed from patient: 11:01 AM Number of tissue samples (in container) 1 06/28/21 1120 06/28/21 1100 Specimen to Pathology ONE TIME Comments: OR#2, [id number] Question Answer Comment Clinical History and Diagnosis: [id number] SCCa of the Middle Ear/Tympanic Membrane in [...] radical canal wall down tympanomastoidectomy now with [id number] SCCa of the Middle Ear/Tympanic Membranein the [...] A devendra marcella was then used to surinamese the medial bony wall of the mesotympanum [...] [address] [id number] Tyrese Fitzgerald MD [facility] [place] [address] documented as of this encounter Procedures Procedure [...] Area, Defect 30.1 Sq Cm To 60.0 ([id number]) 06/28/2021 7:43 AM EST 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, except mandible Exc Parotd, Total, Dissect 5Th Nerv ([id number]) 06/28/2021 7:43 AM EST 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 Lymphocytes Abs 0.6(L) 0.9 - 3.2 x10(3)/mc L [facility] Monocyte % 5.6 % [facility] Monocyte Abs 0.6 0.3 - 0.9 x10(3)/[facility] Eos % 0.0 % [facility] Eosinophils Abs 0.0 0.0 - 0.4 x10(3)/[facility] Basophil % 0.1 % [facility] Baso Absolute 0.0 0.0 - 0.1 x10(3)/[facility] Immature Gran % 0.30 % [facility] Comment: Immature granulocytes(IG's)percentage and absolute count will include metamyelocytes, myelocytes, and promyelocytes. Blood smears from CBCs yielding IG's will be scanned manually for concordance. If this scan disagrees with the automated IG or if promyelocytes are noted, a manual differential will be performed. Immature Gran Absolute 0.03 0.00 - 0.04 x10(3)/[facility] Blood 06/29/2021 12:4 0 AM EST 06/29/2021 12:59 AM EST Narrative Resulting Agency Comment Spec In Lab Jayne Darby MD HEMATOLOGY ORDERAB LES Performing Organization Address City/State/[facility] Co de Phone Number [facility] [place] [address] * (ABNORMAL) Hemogram (06/29/2021 12:40 AM EST) White Blood Cell 11.7(H) 4.0 - 9.5 x10(3)/[facility] Red Blood Cell 4.40(L) 4.58 - 5.54 x10(6)/[facility] Hemoglobin 14.0 13.7 - 16.5 g/dL [facility] Hematocrit 40.6 40.5 - 48.5 % [facility] Mean Cell Volume 92.3 82.9 - 93.1 fL [facility] Mean Cell Hemoglobin 31.8 27.5 - 32.1 pg [facility] Mean Cell Hemoglobin Concentration 34.5 32.0 - 35.7 g/dL [facility] Platelet 164 145 - 357 x10(3)/mc L [facility] RDW Standard Deviation 44.2 36.0 - 45.0 fL [facility] RDW coefficient of variation 13.0 11.4 - 13.8 % [facility] Mean Platelet Volume 10.6 7.6 - 12.9 fL [facility] NRBC% auto 0.0 % [facility] NRBC Absolute 0.000 0.000 - 0.000 x10(3)/mc L [facility] Blood 06/29/2021 12:4 0 AM EST 06/29/2021 12:59 AM EST Narrative Resulting Agency Comment Spec In Lab Jayne Darby MD HEMATOLOGY ORDERAB LES Performing Organization Address City/State/[facility] Co de Phone Number [facility] [place] [address] * (ABNORMAL) Basic Metabolic Panel (non-fasting) (06/29/2021 12:40 AM EST) Glucose 175 65 - 199 mg/dL [facility] Comment:Diabetes: >=200 mg/d L plus symptoms Blood Urea Nitrogen 14 10 - 20 mg/dL [facility] Creatinine 1.01 0.80 - 1.50 mg/dL [facility] Sodium 138 135 - 145 mmol/L [facility] Potassium 4.4 3.5 - 5.0 mmol/L [facility] Comment: Please note: ??Patients with WBC >100,000 may have falsely elevated Potassium levels. ??For accurate Potassium quantification in these patients send serum separator tube (gold top) for subsequent determinations. ??Contact the Clinical Chemistry Laboratory if there are any questions. Chloride 103 98 - 107 mmol/L [facility] Carbon Dioxide 24 22 - 31 mmol/L [facility] Anion Gap 11 5 - 15 mmol/L [facility] Calcium 8.2(L) 8.5 - 10.5 mg/dL [facility] Est Glomerular Filtration Rate 78 >=60 mL/min/1. 73 m?? [facility] Comment: This patient? s [...] Hernández MD CHEMISTRY ORDERABLES Performing Organization Address City/[facility]/ZIP Co de Phone Number [facility] [place] [place] [address] * Specimen to Pathology (06/28/2021 8:39 PM EST) AP Specimen 06/28/2021 8:39 PM EST 06/28/2021 8:39 PM EST Narrative [facility] - 06/28/2021 8:39 PM EST Specimen requisition ordered. ??Separate Pathology report to follow Apolinar Hernández MD PATHOLOGY/CYTOLOGY O RDERABLES [facility] [place] [address] * Specimen to Pathology (06/28/2021 8:23 PM EST) AP Specimen 06/28/2021 8:23 PM EST 06/28/2021 8:23 PM EST Narrative [facility] - 06/28/2021 8:23 PM EST Specimen requisition ordered. ??Separate Pathology report to follow Apolinar Hernández MD PATHOLOGY/CYTOLOGY O ANA LUISA Performing Organization Address City/[facility]/ZIP Co de Phone Number [facility] [place] [address] * Specimen to Pathology (06/28/2021 6:22 PM EST) AP Specimen 06/28/2021 6:22 PM EST 06/28/2021 6:22 PM EST Narrative [facility] - 06/28/2021 6:22 PM EST Specimen requisition ordered. ??Separate Pathology report to follow Apolinar Hernández MD PATHOLOGY/CYTOLOGY O ANA LUISA Performing Organization Address [facility] [place] [address] * (ABNORMAL) BLOOD GAS 2 ARTERIAL (06/28/2021 5:46 PM EST) pH, Arterial 7.37 7.35 - 7.45 [facility] PCO2, Arterial 41 35 - 45 mmHg [facility] PO2, Arterial 145(H) 85 - 104 mmHg [facility] Bicarbonate, Arterial 23.4 20.0 - 26.0 mmol/L [facility] Base Excess, Arterial -1.9 -3.0 - 3.0 mmol/L [facility] Hgb Blood Gas 14.8 13.7 - 16.5 g/dL [facility] Oxyhemoglobin, Arterial 97.5(H) 94.0 - 97.0 % [facility] Carboxyhemoglob in, Arterial 1.0 % [facility] Comment: Nonsmokers: 0.5-1.5% COHB Smokers: Variable, but usually less than 10% Toxic: 20-30% COHB Lethal: Greater than 60% COHB Methemoglobin, Arterial 0.3 <=1.5 % [facility] Na Whole Blood 136 135 - 145 mmol/L [facility] K Whole Blood 4.1 3.5 - 5.0 mmol/L [facility] Comment: Please note: Patients with WBC >100,000 may have falsely elevated Potassium levels. Contact the Clinical Chemistry Laboratory if there are any questions. ICa Whole Blood 1.12(L) 1.15 - 1.33 mmol/L [facility] Comment: Note: ??Total bilirubin higher than 20 mg/dL may lead to falsely low ionized calcium. CL Whole Blood 106 98 - 107 mmol/L [facility] Gluc Whole Bld 177 65 - 199 mg/dL [facility] Comment:Diabetes: >=200 mg/d L plus symptoms. Lactate WB 2.4(H) 0.5 - 2.2 mmol/L [facility] FIO2 Art 43 % [facility] PF Ratio Art 337 [facility] Blood 06/28/2021 5:46 PM EST 06/28/2021 5:46 PM EST Apolinar Hrenández MD POINT OF CARE TEST O RDERABLES Performing Organization Address [facility] Co de Phone Number [facility] [place] [place] [address] * Specimen to Pathology (06/28/2021 5:40 PM EST) AP Specimen 06/28/2021 5:40 PM EST 06/28/2021 5:40 PM EST Narrative [facility] - 06/28/2021 5:40 PM EST Specimen requisition ordered. ??Separate Pathology report to follow Jose D Hoang MD PATHOLOGY/CYTOLOGY ORDERABLES Performing Organization Address [facility]/ZIP Co de Phone Number [facility] [place] [place] [address] * Specimen to Pathology (06/28/2021 5:40 PM EST) AP Specimen 06/28/2021 5:40 PM EST 06/28/2021 5:40 PM EST Narrative [facility] - 06/28/2021 5:40 PM EST Specimen requisition ordered. ??Separate Pathology report to follow Jose D Hoang MD PATHOLOGY/CYTOLOGY ORDERABLES Performing Organization Address [facility] [place] [address] * Specimen to Pathology (06/28/2021 5:40 PM EST) AP Specimen 06/28/2021 5:40 PM EST 06/28/2021 5:40 PM EST Narrative [facility] - 06/28/2021 5:40 PM EST Specimen requisition ordered. ??Separate Pathology report to follow Jose D Hoang MD PATHOLOGY/CYTOLOGY ORDERABLES Performing Organization Address [facility] [place] [address] * Specimen to Pathology (06/28/2021 5:40 PM EST) AP Specimen 06/28/2021 5:40 PM EST 06/28/2021 5:40 PM EST Narrative [facility] - 06/28/2021 5:40 PM EST Specimen requisition ordered. ??Separate Pathology report to follow Jose D Hoang MD PATHOLOGY/CYTOLOGY ORDERABLES Performing Organization Address [facility] [place] [address] * Specimen to Pathology (06/28/2021 5:40 PM EST) AP Specimen 06/28/2021 5:40 PM EST 06/28/2021 5:40 PM EST Narrative [facility] - 06/28/2021 5:40 PM EST Specimen requisition ordered. ??Separate Pathology report to follow Jose D Hoang MD PATHOLOGY/CYTOLOGY ORDERABLES Performing Organization Address [facility] Co de Phone Number [facility] [place] [address] * Specimen to Pathology (06/28/2021 3:04 PM EST) AP Specimen 06/28/2021 3:04 PM EST 06/28/2021 3:04 PM EST Narrative [facility] - 06/28/2021 3:04 PM EST Specimen requisition ordered. ??Separate Pathology report to follow Apolinar Hernández MD PATHOLOGY/CYTOLOGY O ANA LUISA Performing Organization Address [facility]/[place] [address] * Specimen to Pathology (06/28/2021 12:54 PM EST) AP Specimen 06/28/2021 12:5 4 PM EST 06/28/2021 12:54 PM EST Narrative [facility] - 06/28/2021 12:54 PM EST Specimen requisition ordered. ??Separate Pathology report to follow Apolinar Hernández MD PATHOLOGY/CYTOLOGY O ANA LUISA Performing Organization Address [facility] [place] [address] * Specimen to Pathology (06/28/2021 12:54 PM EST) AP Specimen 06/28/2021 12:5 4 PM EST 06/28/2021 12:54 PM EST Narrative [facility] - 06/28/2021 12:54 PM EST Specimen requisition ordered. ??Separate Pathology report to follow Apolinar Hernández MD PATHOLOGY/CYTOLOGY O ANA LUISA Performing Organization Address City/[facility] [place] [address] * Specimen to Pathology (06/28/2021 12:41 PM EST) AP Specimen 06/28/2021 12:4 1 PM EST 06/28/2021 12:41 PM EST Narrative [facility] - 06/28/2021 12:41 PM EST Specimen requisition ordered. ??Separate Pathology report to follow Apolinar Hernández MD PATHOLOGY/CYTOLOGY O RDERABLES Performing Organization Address City/[facility]/ZIP Co de Phone Number [facility] [place] [place] [address] * Specimen to Pathology (06/28/2021 11:54 AM EST) AP Specimen 06/28/2021 11:5 4 AM EST 06/28/2021 11:54 AM EST Narrative [facility] - 06/28/2021 11:54 AM EST Specimen requisition ordered. ??Separate Pathology report to follow Apolinar Hernández MD PATHOLOGY/CYTOLOGY O ANA LUISA Performing Organization Address [facility] [place] [address] * Specimen to Pathology (06/28/2021 11:20 AM EST) AP Specimen 06/28/2021 11:2 0 AM EST 06/28/2021 11:20 AM EST Narrative [facility] - 06/28/2021 11:20 AM EST Specimen requisition ordered. ??Separate Pathology report to follow Apolinar Hernández MD PATHOLOGY/CYTOLOGY O ANA LUISA Performing Organization Address [facility] Co de Phone Number [facility] [place] [place] [address] * Specimen to Pathology (06/28/2021 10:58 AM EST) AP Specimen 06/28/2021 10:5 8 AM EST 06/28/2021 10:58 AM EST Narrative [facility] - 06/28/2021 10:58 AM EST Specimen requisition ordered. ??Separate Pathology report to follow Apolinar Hernández MD PATHOLOGY/CYTOLOGY O ANA LUISA Performing Organization Address [facility] [place] [address] * Surgical Pathology Report (06/28/2021 10:51 AM EST) Final Diagnosis [id number] ? Location: [facility]; N521; A The signing pathologist has (i) examined [...] Shultz Verified: ??07/05/2021 12:00 ??Pathologist Performed at: ??-[facility] Dept. of Pathology, [place], [place] DISCUSSION It is difficult to assign an AJCC pathologic stage due to the inability to assess largest tumor dimension. No ?? perineural or lymphovascular invasion is recognized. Clinical/surgical correlation is needed to determine final margin status with regard to separately submitted involved specimens. ADDITIONAL STUDIES Whole slide scan: agency service representative slide(s) SPECIMEN(S) SUBMITTED A - LEFT SUPERIOR [...] Neck Level 1B, excision (1) CLINICAL INFORMATION [id number] SCCa of the middle ear/tympanic membrane in [...] 0.6 cm in greatest dimension. Sections/Processi ng: [employer]st sections in 5 cassettes as follows: ?H1: [...] 0.6 cm in greatest dimension. Sections/Processi ng: [employer] Stress [employer]st sections in 8 cassettes as follows: ?K1-K2: [...] larger nodule is inked black Sections/Processi ng: Aircraft Stress [employer]st sections in 3 cassettes as follows: ?L1-L2: ??Aircraft Stress Analyst sections of larger nodule ?L3: ??Detached nodules [...] and reviewed with Dr. Ireland Sections/Processi ng: Aircraft Stress Analyst sections in 8 cassettes as follows: ?M1: ??Aircraft Stress Analyst section from slice I to include superior-orange inked margin ? as well as medial-red lateral-yellow inked margins, perpendicular slices ?M2: ??Aircraft Stress Analyst section from slice III, to include posterior-black, medial- ?red, and lateral-yellow margins ?M3: ??Aircraft Stress Analyst section from slice from V to include blue-anterior, red- ?medial, and yellow-lateral inked margins ?M4: ??Aircraft Stress Analyst sections from slice VII to include black-posterior, medial- ?red, and lateral-yellow margins ?M5: ??Aircraft Stress Analyst section of vaguely nodular area from slice VII to include ? medial-red and anterior-blue inked margins ?M6: ??Aircraft Stress Analyst section of vaguely nodular area with hemorrhage from slice IX ? to include medial-red, lateral-yellow, and posterior-black margins ?M7: ??Aircraft Stress Analyst sections from slice X to include green-inked inferior, red- ?lateral, and yellow-medial inked margins ?M8: ??Aircraft Stress [employer]st section of loosely adherent nodule from slice x N - Labeled/Fixative: Left perifacial node, fresh. Quantity/Size: Single, 2.7 x 2.0 x 1.0 cm. Tissue Description: Adipose tissue with two lymph nodes, up to 2.0 x 1.0 x 0.9 cm in greatest dimension. Sections/Processi ng: Aircraft Stress Analyst sections in 4 cassettes as follows: ?N1-N3: [...] cm piece of cauterized muscle Sections/Processi ng: Aircraft Stress [employer]st sections in 11 cassettes as follows: ?O1: ??Largest lymph node submitted in toto ?O2: ??Four lymph node candidates submitted in toto ?O3-O9: ??Remaining adipose submitted entirely ?O10: ??Aircraft Stress Analyst section of skeletal muscle ?O11: ??Aircraft Stress Analyst section of salivary gland ??SAS ?Frozen Section FROZEN SECTION DIAGNOSIS GFS1 - Left tissue at round window, biopsy, ?for frozen section: - Negative for malignancy. . FROZEN SECTION DIAGNOSIS 06/28/21 15:26 / DAK Electronically signed by: ?Racquel Ireland MD Verified: ??06/28/2021 15:27 ??Pathologist Performed at: ??-[facility] Dept. of Pathology, [place], [place] This intraoperative consultation should be interpreted as a preliminary diagnosis pending review of the entire specimen and special studies, if any. A final Surgical Pathology report will follow this preliminary Frozen Section report(s). 07/05/2021 12:00 PM EST [facility] LYMPH NODE SPECIMEN / Unknown 06/28/2021 [...] EST Jose D Hoang MD PATHOLOGY/[place] [address] documented in this encounter Visit Diagnoses Diagnosis [...] PRN, Starting on Sat06/29/21 at 0156, Until [facility] 07/01/21 at 1539, Dry Eyes, Routine Given 06/29/2021 8:33 AM EST 1 drop carboxymethylcellulose (Refresh Plus) 0.5 % ophthalmic drops 1 drop 1 drop, Left Eye, 3 TIMES DAILY PRN, Starting on Sat06/29/21 at 0135, Until Lyndsay 06/29/21 at 0314, Dry Eyes, for comfort, Routine Given 06/29/2021 2:29 AM EST 1 drop cyanocobalamin (Vitamin B-12) [...] Given 06/30/2021 8:36 AM EST 1 drop erythromycin (Romycin) 5 mg/gram (0.5 %) ophthalmic ointment Left Eye, 4 TIMES DAILY, First dose on Sat06/29/21 at 0900, 20 doses, Last dose on Sat07/03/21 at 2100 Given 06/29/2021 12:57 PM EST 1 Tube Given 06/29/2021 8:33 AM EST 1 Tube erythromycin (Romycin) 5 mg/gram (0.5 %) ophthalmic [...] Given 06/29/2021 8:32 AM EST 10 mg heparin (porcine) (5,000 units/1 mL) subcutaneous injection 5,000 Units 5,000 Units, Subcutaneous, EVERY 8 HOURS SCHEDULED, First dose on Sat06/29/21 at 0600, Until Discontinued, Routine Given 07/01/2021 5:54 AM EST 5,000 Unit s Given 06/30/2021 10:00 PM EST 5,000 Units Given 06/30/2021 2:02 PM EST 5,000 Units ibuprofen (Motrin) tablet 400 mg 400 mg, Oral, EVERY 6 HOURS SCHEDULED, First dose on Sat06/29/21 at 0045, Until Discontinued, Administer orally with [...] Given 07/01/2021 12:00 AM EST 400 mg lactated ringers infusion 1,000 mL, at 100 mL/hr, Intravenous, CONTINUOUS, Starting on Sat06/28/21 at 0700, Until Sat06/29/21 at 0016, Day of Surgery (Day of Procedure) New Bag 06/28/2021 2:03 PM EST New Bag 06/28/2021 10:00 AM EST New Bag 06/28/2021 7:08 AM EST 1,000 mLs 100 mL/hr loperamide (Imodium A-D) capsule 2 mg 2 mg, Oral, DAILY, First dose on [facility] 06/29/21 at 0900, Until Discontinued, Do not [...] 20 mg, Oral, DAILY, First dose on [facility] 06/29/21 at 0900, Until Discontinued Given 07/01/2021 8:58 AM EST 20 mg Given 06/30/2021 8:36 AM EST 20 mg Given 06/29/2021 8:33 AM EST 20 mg pantothenic Ac-Min Oil-Pet,Hyd (Aquaphor) 41 % ointment 1 each 1 each, Topical (Top), 2 TIMES DAILY, First dose on [facility] 06/29/21 at 0245, Until Discontinued, Clean incision with sterile saline or half strength hydrogen peroxide and apply aquaphor incision twice daily. Given 07/01/2021 8:56 AM EST 1 each Given 06/30/2021 9:00 PM EST 1 each Given 06/30/2021 8:37 AM EST 1 each senna-docusate (Pericolace) 8.6-50 mg per [...] Given 06/30/2021 8:37 AM EST 5 mLs sodium chloride 0.9% infusion 100 mL/hr, Intravenous, CONTINUOUS, Starting on Lyndsay 06/29/21 at 0045, Until Lyndsay 06/29/21 at 0638 New Bag 06/29/2021 2:27 AM EST 100 mL/hr 100 mL/hr New Bag 06/29/2021 1:00 AM EST 100 mL/hr 100 mL/hr tamsulosin (Flomax) capsule 0.4 mg 0.4 mg, [...] Anthony Saravia RN)0942 (Given - Provider: Rachel Hernandez, EUSEBIO)1422 (Given - Provider: Rachel Hernandez RN - Comment: L eye)1715 (Given - Provider: Rachel Hernandez RN)2200 (Given - Provider: Olivia Mcgowan RN) 0200 (Given - Provider: Olivia Mcgowan, EUSEBIO)0600 (Given - Provider: Olivia Mcgowan RN)1124 (Given - Provider: Rachel Hernandez RN)1518 (Given - Provider: Rachel Hernandez RN)2000 (Canceled Entry - Provider: Olivia Mcgowan RN - Reason: See comment)2200 (Given - Provider: Olivia Mcgowan RN) 0200 (Given - Provider: Olivia Mcgowan RN)0600 (Given - Provider: Olivia Mcgowan, EUSEBIO)1136 (Given - Provider: Rachel Hernandez RN - Comment: l eye) ampicillin-sulbactam (Unasyn) 3 g vial attach to sodium chloride 0.9% 100 mL Mini-Bag Plus 3 g, Intravenous, EVERY 8 HOURS, 15 doses, First dose on Lyndsay 06/29/21 at 0600, Last dose on Sat07/03/21 at [...] Olivia Mcgowan RN)0600 (New Bag - Provider: Olivia Mcgowan RN)1402 (New Bag - Provider: Rachel Hernandez RN)1432 (Stopped - Provider: Rachel Hernandez RN)2200 (New Bag - Provider: Olivia Mcgowan RN)2230 (Stopped - Provider: Olivia Mcgowan, EUSEBIO) 0600 (New Bag - Provider: Olivia Mcgowan RN)0630 (Stopped - Provider: Olivia Mcgowan RN) atorvastatin (Lipitor) tablet 20 mg 20 mg, Oral, EVERY EVENING, First dose on Lyndsay 06/29/21 at 1700, Until Discontinued, Routine 1715 (Given [...] Mcgowan RN) 0836 (Given - Provider: Rachel Hernandez RN)2100 (Given - Provider: Olivia Mcgowan, EUSEBIO) 0857 (Given - Provider: Rachel Hernandez RN) [...] Rachel Hernandez RN)2200 (Given - Provider: Olivia Mcgowan, EUSEBIO) 0700 (Not Given - Provider: Olivia Mcgowan RN - Reason: Patient/family refused)1124 (Given - Provider: Rachel Hernandez RN)1352 (Given - Provider: Rachel Hernandez, EUSEBIO)1518 (Given - Provider: Rachel Hernandez, EUSEBIO)1801 (Given - Provider: Rachel Hernandez RN)2200 (Given - Provider: Olivia Mcgowan RN) 0700 (Given - Provider: Olivia Mcgowan RN)0906 [...] Rachel Hernandez RN)1706 (Given - Provider: Rachel Hernandez RN) 0000 (Given - Provider: Olivia Mcgowan RN)0600 [...] Rachel Hernandez RN)2100 (Given - Provider: Olivia Mcgowna, EUSEBIO) 0856 (Given - Provider: Rachel Hernandez RN) [...] Mcgowan RN) 0858 (Given - Provider: Rachel Hernandez RN) sodium chloride 0.9 % (flush) (BD PosiFlush Normal Saline 0.9) flush 5 mL 5 mL, Intravenous, 2 TIMES DAILY, First dose on Lyndsay 06/29/21 at 0245, Until Discontinued, Routine 0227 (Given - Provider: Anthony Saravia, EUSEBIO)0834 (Given - Provider: Rachel Hernandez, EUSEBIO)2100 (Given - Provider: Olivia Mcgowan, EUSEBIO) 0837 (Given - Provider: Rachel Hernandez RN)2100 [...] RN)0227 (New Bag - Provider: Anthony Saravia, RN)0638 (Stopped - Provider: Anthony Saravia, RN) PRN Medication Order 06/29/2021 06/30/2021 07/01/2021 carboxymethylcellulose (Refresh Plus) 0.5 % ophthalmic drops 1 drop 1 drop, Both Eyes, 3 TIMES DAILY PRN, Starting on Lyndsay 06/29/21 at 0156, Until 07/01/21 at 1539, Dry Eyes, Routine 0833 (Given - Provider: Rachel Hernandez, EUSEBIO) carboxymethylcellulose (Refresh Plus) 0.5 % ophthalmic drops 1 drop (CANCELED) 1 drop, Left Eye, 3 TIMES DAILY PRN, Starting on Lyndsay 06/29/21 at 0135, Until Lyndsay 06/29/21 at 0314, Dry Eyes, for comfort, Routine 228 (Given - Provider: Anthony Saravia, EUSEBIO) HYDROmorphone (Dilaudid) (0.5 mg/0.5 mL) injection syringe [...] 6-10, Routine 226 (Given - Provider: Anthony Saravia, RN)518 (Given - Provider: Anthony Saravia, EUSEBIO) polyethylene glycoL (Miralax) packet 17 g 17 [...] Routine documented in this encounter 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
--- OUTSIDE RECORDS SUMMARY | 2024-02-10 15:17 | XMS_ITS | Encounter Summary ---
Author Organization [facility] [place] [address] Care Team Providers Care Bottom Cementer Name Role Phone Ilya Medina MD Primary Care Provider [phone] Encounter Details Date Type Department Care Team (Late st Contact Info) Description 05/31/2021 [place] [phone] Criss Estrada MSW Social History Tobacco Use Types Packs/Day Years [...] encounter Miscellaneous Notes * Telephone Encounter - Criss Estrada MSW - 05/31/2021 1:24 PM EST Continuing Event Sales Representative-Social Work Initial Assessment Office of Care Management Referral/Contact: Suman Warner is a 66 y.o. 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 Present at Visit: Phone visit today. Understanding/Adjustment/Coping: Suman reports he is coping well at this time. He is well supported in his community, by his family and by his congregation, [employer] in [place], [place]. He is hopeful and trying to stay positive and focused on next steps. Hopes/Goals: Focused on curative treatment. Seems insightful about many variables potentially impacting his care. Receptive to suggestions and communication with DH Team. If radiation is recommended post surgery, he would like to have that in [facility]. Current living situation: Suman currently lives at home with his . They own their home, and have a hefty property tax (last year was $4832.09 (2020)). Their oldest son (33 y/o) also lives with them. 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 Supports and Services: No specifics services or supports identified at this time. Suman notes his Muslim family is very important to him. Substance Use: Did not assess during this visit. Patient/Family Mental Health Concerns: Did not assess during this visit. Financial/Insurance Concerns: Suman shared he is worried about the impending cost of treatment. Herecently switched to Medicare as his primary insurance and is paying out of pocked for supplementalinsurance. He noted last year he paid approximately 9k OOP for health insurance. They own their ownhome and property taxes are high. They both have car payments- a truck $448.92 and a car $325.16. Legal Concerns: Did not discuss during this vist. Advance Directives: NOT ON FILE- needed. Current Stressors: [ ] Limited Support [X] Financial/Employment Concerns [ ] Transportation [ ] Domestic Violence [ ] Family Conflict [ ] Illness of Family Member [ ] Adult Protection involvement [X ] Insurance [ ] Substance Abuse [ ] Inadequate Coping Skills [ ] Loss/ [ ] Change in Home Environment [ ] Concerns about Diagnosis [ ] Mental health Issues [ ] Other: Comments: Assessment/Summary: Very pleasant gentleman. Suman has excellent support from from his family and community. He has a clear sense of what the next steps are with his treatment; at this point, plan will be to have both chemo and radiation after surgery- upcoming surgery is tenatively scheduled for 06/28/21. He would prefer to have radiation in [facility]. He has been coping with the support of online facebook community, in addition to many community members and family/friends. He denies any concerns about his sleeping or eating habits.He states he competed his dental evaluation and is scheduled to have his presurgical visit with his PCP. No immediate identified barriers to care. Counseled Suman about the options for financial assistance (through /PFA), to include cancer grants he may be eligible for (CPSFVT and JAF). Provided overview of town resources that may be able to offer assistance with fuel/ electric. We talked about utilizing resources in the community that can assist with cost savings; advised I would submit a referral to [facility] Certified Pesticide Applicator. Also advised I would send a gas card to offset cost of gas. SW/ Intervention(s)/Plan: Psychosocial assessment Supportive Counseling Care Coordination Referral to [facility] Community [facility] Certified Pesticide Applicator Financial resources Patient Financial Assistance/Insurance -Referral to EVERARDO Minor and RHETT Immediate Barriers to Care: None Follow Up Plan: - SW to follow up next week - Referral to PFA to explore financial resources at -Advance Directives needed- SW to discuss - Mail gas card with JA application - SW remains available for psychosocial support and resource coordination as indicated. Criss Sheppard [facility] Continuing Event Sales Representative, [facility] Pager: [phone] documented in this encounter Plan of Treatment Upcoming Encounters Date Type Department Care Team (Late st Contact Info) Description 04/29/2024 11:00 AM EST Office Visit Radiation Oncology at [address] [phone] Tyrese Fitzgerald MD [facility] [place] [address] documented as of this encounter Visit Diagnoses Not on filedocumented in this encounter Care Teams Bottom Cementer Relationship 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
--- OUTSIDE RECORDS SUMMARY | 2024-02-10 15:17 | XMS_ITS | Encounter Summary ---
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 Encounter Details Date Type Department Care Team (Latest Contact Info) Description 07/12/2021 9:40 AM EST Office Visit [place] [address] Apolinar Hernández MD [facility] [place] [address] Cancer of temporal bone; Facial paralysis; Mixed conductive and sensorineural hearing [...] - Inhaled Oxygen Concentration - - Weight 109.5 kg (241 lb 8 oz) 07/12/2021 9:46 AM EST Height 177.8 cm (5' 10) 07/12/2021 9:46 AM EST Body Mass Index 34.65 07/12/2021 9:46 AM EST documented in this encounter Progress Notes * Apolinar Hernández MD - 07/12/2021 9:40 AM EST [facility] Otolaryngology - Head and Neck Surgery Apolinar Hernández MD 07/18/21 3:46 PM [place], [place] [address] Office Patient Name: Suman Warner Date of : 1955 PCP: Ilya Medina MD Reason for Follow Up: facial weakness following surgery Interval History: 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 Hoang. Surgery 06/28/2021. Underwent left subtotal temporal bone resection in setting of prior canal wall down mastoidectomy, selective neck dissection levels IB, IIA, and III, parotidectomy, and ear overclosure with submentalflap. Awaiting consultation to Radiation Therapy for adjuvant radiation treatment. Had normal facial function post-op. Was exhibiting some mild left facial weakness (HB II) at last post-op visit with Drs. Darby and Viktor 07/07/2021. Over the ensuing weekend, facial function onleft continued to decline to where he could no longer close his eye or pucker his lips. Following phone consultation, we empirically initiated 60 mg prednisone daily for 7 days as well as 500 mg valtrex daily for 7 days. Reports he has been tolerating meds without issue. 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 Initiated on artifical tears and PM ocular lubricant. Facial function asremained stable. Denies any significant pain complaints. Some modest drainage and crusting at flap site at meatus. No swelling or erythema. Denies visual changes, eye redness or foreign body sensation. No f/c or other systemic symptoms. Hearing subjectively stable. No dizziness/vertigo. Pertinent Exam Findings: General: Alert and oriented. No acute distress. Head and Face: Head is normocephalic, atraumatic. Facial resting tone asymmetric. Eyes: Conjugate gaze, ocular motility intact bilaterally. No spontaneous or gaze evoked nystagmus. Sclera and conjunctiva appear clear. Neurologic: Left facial palsy (HB V/). Minimal buccal and periorbital facial movement left. Unable to completely close eye. Asymmetric pucker and smile. No appreciable forehead movement. Cranial Nerves II-XII otherwise grossly intact and symmetric. Ears: External ears without deformity. Postauricular and cervical incision left c/d/i without appreciable edema, erythema, fluctuance or evidence of infection. Distal flap margin at meatus with some overriding exudative debris which was cleared revealing evidence of some epidermolysis. Margins clear. No significant dehiscence or evidence of infection. Hem/Lymph/Imm: Neck supple without cervical mass or lymphadenopathy. MSK: Normal neck range of motion. No trismus. Resp: Breathing comfortably without stridor or retractions. Normal respirations. CV: Normal carotid pulses. Psych: Normal mood and affect. Impression and Plan: Delayed facial paresis/paralysis left (HB V/) s/p subtotal temporal bone resection with facial nerve decompression without mobilization with parotidectomy, neck dissection and submental flap reconstruction. Counseled regarding possible origins to delayed facial paresis, to include viral reactivation, delayed effects from trauma / inflammation. Appreciate no obvious evidence of infection or bleeding, andwound appears to be healing overall well. Extensive anticipatory guidance provided. Advised patientthat in such cases, we will invariably anticipate improvements in facial function over time, although time to improvement is variable, and we may need to be prepared to wait weeks, possibly months. Will continue with completion antiviral and prednisone course. Will initiate slow prednisone taper over 2 weeks following completion of his current 7 day course of prednisone 60mg/day. Advised to continue with his daily Aciphex. Patient was advised that protection of the eye from drying is critical. Continue with artificial tears frequently during the day and apply Lacrilube ointment as directed at night. Patient was advisedto notify his doctors immediately for any change in vision, pain or sensation of a foreign body in the eye that doesn't go away with eye drops. Patient also provided with moisture chamber for eye today with instructions on use. Reports recent referral to PT for shoulder weakness was apparently declined through PCP. Advised that we will look into this, and plan for placement of direct referral / order for care if necessary. Will plan next f/u approx 3 weeks as already scheduled. Early return precautions reviewed. Total time spent counseling and coordinating patient care 45 minutes. 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
--- OUTSIDE RECORDS SUMMARY | 2024-02-10 15:17 | XMS_ITS | Encounter Summary ---
Author Organization [facility] Address [facility] [place] [address] Care Team Providers Care Flower Planter Name Role Phone Ilya Medina MD Primary Care Provider Reason for Visit * Reason Onset Date Comments Medication Refill 07/10/2021 Encounter Details Date Type Department Care Team (Late st Contact Info) Description 07/10/2021 Ref[place] [address] Apolinar Hernández MD [facility] [place] [address] Social History Tobacco Use Types Packs/Day Years [...] EST Office Visit Radiation Oncology at [address] [phone] Tyrese Fitzgerald MD [facility] [place] [address] documented as of this encounter Visit Diagnoses Not on filedocumented in this encounter Care Teams Flower Planter Relationship 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
--- OUTSIDE RECORDS SUMMARY | 2024-02-10 15:17 | XMS_ITS | Encounter Summary ---
Author Organization [facility] [place] [address] Care Team Providers Care Supervisor Alteration Workroom Name Role Phone Ilya Medina MD Primary Care Provider [phone] Encounter Details Date Type Department Care Team (Latest Contact Info) Description 07/12/2021 Travel Social History Tobacco Use Types Packs/Day [...] EST Office Visit Radiation Oncology at [address] [phone] Tyrese Fitzgerald MD [facility] DR [place] [address] documented as of this encounter Visit Diagnoses Not on filedocumented in this encounter Care Teams Supervisor Alteration Workroom Relationship 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
--- OUTSIDE RECORDS SUMMARY | 2024-02-10 15:17 | XMS_ITS | Encounter Summary ---
[place] [address] Care Team Providers Care Ticket Puller Name Role Phone Ilya Medina MD Primary Care Provider [phone] Encounter Details Date Type Department Care Team (Late st Contact Info) Description 05/31/2021 Telephone [place] [phone] Neetu Troncoso Social History Tobacco Use Types Packs/Day Years [...] encounter Miscellaneous Notes * Telephone Encounter - Neetu Troncoso - 05/31/2021 10:55 AM EST If bed is approved: Arielle, Patient is scheduled to have surgery on 06/28/2021 and the packet has been mailed to the verified address on file. Follow up appointment is as follows: No follow up instructions indicated in case. Thank you!! documented in this encounter Plan of Treatment Upcoming Encounters Date Type Department Care Team (Late st Contact Info) Description 04/29/2024 11:00 AM EST Office Visit Radiation Oncology at [address] [address] Tyrese Fitzgerald MD [facility] [place] [address] documented as of this encounter Visit Diagnoses Not on filedocumented in this encounter Care Teams Ticket Puller Relationship 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
--- OUTSIDE RECORDS SUMMARY | 2024-02-10 15:17 | XMS_ITS | Encounter Summary ---
Author Organization [facility] Address [facility] [place] [address] Care Team Providers Care Structural Steel Worker Name Role Phone Ilya Medina MD Primary Care Provider [phone] Encounter Details Date Type Department Care Team (Late st Contact Info) Description 06/20/2021 Telephone [place] [address] Laurita Wiggins Social History Tobacco Use Types Packs/Day Years [...] encounter Miscellaneous Notes * Telephone Encounter - Laurita Wiggins - 06/20/2021 10:57 AM EST .Telephone call placed/received to schedule covid 19 testing with patient. Ordering provider: Dr. Apolinar Hernándze Testing Facility: [facility] Date of Testin06/26/2021 Time of Testing: TBD Symptoms: No Employee or Household Member of Employee No Healthcare Worker No documented in this encounter Plan of Treatment Upcoming Encounters Date Type Department Care Team (Late st Contact Info) Description 04/29/2024 11:00 AM EST Office Visit Radiation Oncology at [address] [address] Tyrese Fitzgerald MD [facility] [place] [address] documented as of this encounter Visit Diagnoses Not on filedocumented in this encounter Care Teams Structural Steel Worker Relationship 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
--- OUTSIDE RECORDS SUMMARY | 2024-02-10 15:17 | XMS_ITS | Encounter Summary ---
Author Organization [facility] [place] [address] Care Team Providers Care Triple Valve Tester Name Role Phone Ilya Medina MD Primary Care Provider [phone] Encounter Details Date Type Department Care Team (Late st Contact Info) Description 07/17/2021 Telephone [place] [phone] Nga Winter RN Social History Tobacco Use [...] Telephone Encounter - Nga Winter RN - 07/17/2021 1:06 PM EST Patient's call returned. Patient would like to know if Dr. Hernández would like him to start PT for his left shoulder? Patient hasn't heard from PT to schedule yet. After discussion with Dr. Hernández, he's cleared to start PT. [facility] [place] [place] Phone #: [phone]. Referral faxed to them at: [phone]. documented in this encounter Plan of Treatment Upcoming Encounters Date Type Department Care Team (Late st Contact Info) Description 04/29/2024 11:00 AM EST Office Visit Radiation Oncology at [address] [phone] [facility] [place] [address] documented as of this encounter Visit Diagnoses Not on filedocumented in this encounter Care Teams Triple Valve Tester Relationship 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
--- OUTSIDE RECORDS SUMMARY | 2024-02-10 15:17 | XMS_ITS | Encounter Summary ---
Author Organization [facility] [place] [address] Care Team Providers Care Event Manager Name Role Phone Ilya Medina MD Primary Care Provider [phone] Encounter Details Date Type Department Care Team (Late st Contact Info) Description 07/14/2021 Telephone [place] [phone] Nga Winter RN Social History Tobacco Use [...] Telephone Encounter - Nga Winter RN - 07/14/2021 8:50 AM EST Patient's call returned. Patient called wondering if only predniSONE (Deltasone) 10 mg Tablet are to be weaned or if both predniSONE (Deltasone) 10 mg Tablet and valACYclovir (Valtrex) 500 mg Tablet are to be weaned. The only medication to be weaned off is the Prednisone. Patient also states there's one suture that was not removed a week ago when he came in. It's not sore. He'd like it removed. He will ask PCP to remove. If they won't remove it, he'll call back for an appointment. documented in this encounter Plan of Treatment Upcoming Encounters Date Type Department Care Team (Late st Contact Info) Description 04/29/2024 11:00 AM EST Office Visit Radiation Oncology at [address] [phone] Tyrese Fitzgerald MD [facility] [place] [address] documented as of this encounter Visit Diagnoses Not on filedocumented in this encounter Care Teams Event Manager Relationship 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
--- OUTSIDE RECORDS SUMMARY | 2024-02-10 15:17 | XMS_ITS | Encounter Summary ---
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 Procedures PRO RESECT TEMPORAL BONE, CHECK PROCESSOR APPRCH PRO MASTOIDECTOMY, COMPLETE PRG SOMATOSENSORY TEST, [...] Expiration Date Visits Re quested Visits Authorized [id number] 1 1 Encounter Details Date Type Department Care Team (Late st Contact Info) Description 06/28/2021 7:44 AM EST Anesthesia Event [place] [address] Arvind Gomes MD [facility] [place] [address] Clint Rangel MD [facility] [place] [address] Anesthesia Record Procedure Summary Procedure Name Responsible Anesthesiologist Anesthesia Start Time Anesthesia Stop Time @RESECTION TEMPORAL BONE, EXTERNAL APPROACH (WRVU 37.42) (Left: Ear) Arvind Gomes MD 06/28/21 0744 06/28/21 2353 Events Date Time Event Comment 06/28/2021 0656 0744 AN Verify 0744 Start 0744 An Start Data 0757 An Induction 0800 An Intubation 0822 Anesthesia Ready 0944 Break/Relief In I assumed ca re for Break Relief before which we: 1. Identified the patient 2. Identified the responsible provider(s) 3. Reviewed the pertinent medical history 4. Discussed the surgical plan and course 5. Reviewed intra-op anesthesia management and issues during anesthesia 6. Set expectations for the relief (and/or post-procedure) period 7. Allowed opportunity for questions and acknowledgement of understanding Ru Morse CRNA 1416 Break/Relief In I assumed ca re for Break Relief before which we: 1. Identified the patient 2. Identified the responsible provider(s) 3. Reviewed the pertinent medical history 4. Discussed the surgical plan and course 5. Reviewed intra-op anesthesia management and issues during anesthesia 6. Set expectations for the relief (and/or post-procedure) period 7. Allowed opportunity for questions and acknowledgement of understanding Ru Morse CRNA 1432 Break/Relief Out 1647 Handoff Intra-procedure anesthesia care was transferred after review of the patient's history, current anesthetic/surgical status and procedural plan, anticipated issues and expected post-operative course (including disposition.) Ru Morse CRNA 174 ABG Data Arterial Blood Gas result: pH 7.371 pCO2 41.3 pO2 145 %O2 Sat 98 FiO2 43 HCO3 23.4 BE -1.9 Hb 14.8 K 4.11 Glucose 177 Lactate 2.45 2328 Extubation/LMA Out 2334 an stop data 2352 Recovery or ICU Handoff Rosana ent care was transferred to the destination unit staff after review of the patient's medical history, current anesthetic/surgical status and plan, according to the Provider Handoff Checklist. 2353 Stop Meds Name Total Midazolam 2 mg fentaNYL 250 mcg Propofol 290 mg Rocuronium 100 mg PHENYLephrine 240 mcg ePHEDrine 20 mg Ondansetron 8 mg Dexamethasone 8 mg Neostigmine 6 mg Glycopyrrolate 0.8 mg Succinylcholine 100 mg Propofol INF 4,522.39 mg REMIfentanil INF 7.75 mg ampicillin-sulbactam (Unasyn ) 3 g vial attach to sodium chloride 0.9% 100 mL Mini-Bag Plus 15 g PHENYLephrine INF 28,070 mcg HYDROmorphone 2 mg/mL 1 mg Dexmedetomidine 16 mcg lactated ringers infusion 3,000 mL Lactated Ringers 900 mL Sodium Chloride 0.9% 200 mL Normosol-R 700 mL Albumin (human) 5% 250 mL * Agents Name O2 Air N2O Sevoflurane (et) * Blood No blood administrations on file. Lines, Drains, and Airways Type Details Placement Removal Incision 06/28/21; 0910; Left ; ear (ear and lateral neck) 06/28/21 0910 by Kalpana Morris, RN (RETIRED) Peripheral IV Line - Single Lumen 06/28/21; 0707; metacarpal vein (top of hand), right; sulu-vja-yjklgh catheter system; Anatomical Landmarks; 22 gauge; Alejandra; distraction, tolerated well, appears comfortable; 0; LDA not present upon assessment; 08/15/21; 1255 06/28/21 0707 by Cayla Irizarry RN 08/15/21 1255 by Criss Mercer RN ETT Mask Ventilation: Ea sy (1); ETT Type: Cuffed, Oral; ETT Size: 7.5 mm; Indirect: Video; Notes: Asleep, Pre-O2; Attempts: 1; Laryngoscopy Grade: 1; ETT Placement Verified By: Auscultation, Capnometry; Secured at Teeth: 22 cm; Inserted by: Lito; Removal Date: 06/28/21; Removal Time: 232706/28/21 075 by Ru Morse, ATTRACTION WORKER 06/28/212327 by Arvind Gomes MD (RETIRED) Peripheral IV Line - Single Lumen 06/28/21; 0800; metacarpal vein (top of hand), left; 20 gauge; LDA not present upon assessment; 08/15/21; 1255 06/28/21 0800 by Gavi Padron RN 08/15/21 1255 by Criss Mercer RN Urethral Catheter 06/28/21; 0810; Surg xavi longer than 2 hours; indwelling catheter with core temperature probe; 100% silicone; 14; inserted at this facility; 1; 10; 10; none; drainage bag to dependent drainage; urethral catheter removed, tubing intact; 06/29/21; 1200 06/28/21 0810 by Kalpana Morris RN 06/29/21 1200 by Rachel Hernandez RN Arterial Line 06/28/21; 0814; radi al artery, right; 20 gauge; Morse; Sterile Prep, Sterile Gloves; no longer indicated, catheter intact, removed per policy; 06/29/21; 0050 06/28/21 0814 by Ru Morse CRNA 06/29/21 0050 by Gavi Padron RN Drain/Device Site 06/28/21; 2340; Left ; anterior; neck; collapsible closed device; #1; 07/01/21; 1143 06/28/21 2340 by Bridger Doshi RN 07/01/21 1143 by Rachel Hernandez RN Drain/Device Site 06/28/21; 2341; Left ; anterior (# 2); neck; collapsible closed device; # 2; 08/18/21; 1049 (prior to this admission. no longer there) 06/28/21 2341 by Bridger Doshi RN 08/18/21 1049 by Yaquelin Pyle RN documented in this [...] OR Notes * Anesthesia Postprocedure Evaluation - Arvind Gomes MD - 06/28/2021 11:56 PM EST Department of Anesthesiology Post-procedure Note Patient: Suman Warner Procedure Summary Date: 06/28/21 Room / Location: [facility] OR [address] [place] [address] MAIN OR Anesthesia Start: 743 Anesthesia Stop: Procedures: @RESECTION TEMPORAL BONE, EXTERNAL APPROACH (WRVU 37.42) (Left Ear) MASTOIDECTOMY, COMPLETE (WRVU 12.56) (Left Ear) FACIAL NERVE MONITORING, SETUP PERIPHERAL (WRVU 0.54) (Left Face) MICROSCOPE USE (WRVU 3.46) (N/A ) @CERVICAL LYMPHADENECTOMY (MODIFIED RADICAL NECK DISSECTION) (WRVU 23.95) (Left Neck) FLAP, MYOCUTANEOUS OR FASCIOCUTANEOUS, HEAD & NECK W NAMED VASC PEDICLE (Left Head) 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, TOTAL, WITH DISSECTION AND PRESERVATION OF FACIAL NERVE(WRVU 19.53) (Left ) ADJACENT TISSUE TRANSFER OR REARRANGEMENT; 30.1 TO 60.0 SQ CM, HEAD/NECK (WRVU 12.65) (Left Neck) Diagnosis: 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 Patient Location: PACU/[facility] Level of Consciousness: Conscious but Sleepy Pain Management: Satisfactory Analgesia PONV: None Cardiovascular Status: Hemodynamically Stable Respiratory Status: Stable Respiratory Status Postoperative Fluid Status: Intravascular EUvolemia Possible Anesthetic Complications: NONE apparent at time of evaluation Final Primary Anesthesia Type: General (The anesthetic type performed was the same as planned.) Comments: * Anesthesia Preprocedure Evaluation - Charissa Aparicio MD - 06/27/2021 8:53 AM EST Pre-Anesthesia Evaluation for: Suman Warner a 66 y.o. male. Procedure(s): @RESECTION TEMPORAL BONE, EXTERNAL APPROACH (WRVU 37.42) MASTOIDECTOMY, COMPLETE (WRVU 12.56) FACIAL NERVE MONITORING, SETUP PERIPHERAL (WRVU 0.54) MICROSCOPE USE (WRVU 3.46) @CERVICAL LYMPHADENECTOMY (MODIFIED RADICAL NECK DISSECTION) (WRVU 23.95) FLAP, MYOCUTANEOUS OR FASCIOCUTANEOUS, HEAD & NECK W NAMED VASC PEDICLE EXC.PAROTID TUMOR OR GLAND, LATERAL LOBE, W DISSECTION & PRESERVATION FACIAL NERVE (WRVU 17.16) Patient Active Problem List Diagnosis Date Noted [...] 0.54) performed by Apolinar Hernández MD at [facility] MAIN OR ??? PRO COLONOSCOPY, BIOPSY 10/09/2012 COLONOSCOPY FLEXIBLE, WITH BX performed by Xiang Owen MD at [facility] ENDOSCOPY ??? PRO MICROSURG TECHNIQUES, REQ OPER MICROSCOPE Left 03/31/2021 MICROSCOPE USE (WRVU 3.46) performed by Apolinar Hernández MD at [facility] MAIN OR ??? PRO TYMPANOPLASTY Left 03/31/2021 TYMPANOPLASTY (WRVU 10.05) performed by Apolinar Hernández MD at [facility] MAIN OR ??? PRO UPPER GI ENDOSCOPY, BIOPSY 03/20/2011 UPPER GASTROINTESTINAL ENDOSCOPY,WITH BIOPSY SINGLE OR MULTIPLE performed by JORDAN RAMOS at [facility] ENDOSCOPY Social History Tobacco Use ??? Smoking status: Never Smoker ??? Smokeless tobacco: Never Used Substance Use Topics ??? Alcohol use: No Social History Substance and Sexual Activity Drug Use Yes ??? Types: Benzodiazapines No Known Allergies Medications: MAR and/or home medications have been reviewed. Physical Exam: Preprocedure Vitals Current as of 06/27/21 0853 No BP, pulse, respiration, SpO2, or temperature recorded. Height: Weight: BMI: IBW: Airway Assessment: Mallampati: III Cardiovascular Assessment: Rhythm: regular system normal Pulmonary Assessment: pulmonary exam normal Dental Assessment: - normal exam Misc Assessment: Last Filed Perioperative Cognitive Screening None Anesthesia Plan: ASA 3 general, with a(n) intravenous induction 66 yo male presents for excision head and neck tumor incl neck dissection. 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 PMH s/f GERD and HLD. Recent mild COVID infection (May 2021). Adequate functional status. Reports damage to hard palate with last intubation. (Failed Mac3, CMAC 2 attempts) Plan GETA with standard ASA monitors and adequate IV access, arterial line. Region - Other Informed Consent: Anesthetic plan and risks discussed with patient and spouse. Use of blood products discussed with patient and spouse who consented to blood products. Plan discussed with ATTRACTION WORKER and attending. Anesthesia Screening Note: Date and Time of Entry: 06/27/2021 8:53 AM Entered By: Clint Rangel MD Reason for Evaluation: PAT Protocol - Screening Trigger Screening Visit Type: Telephone Call Findings, Assessment and Plan: I spoke with Mr. Warner in regards to his planned surgery with tomorrow (06/28/2021) in the context of a recent COVID infection. Pt tested + for COVID at the end of April and had mild sx's which resolved after a few days. He has remained asymptomatic since then. Because this infection was within 90 days, and the patient is asymptomatic. Surveillance testing isnot recommended per [facility] guidelines. However, the patient did already undergo surveillance testing yesterday (06/26/2021). The results are not yet returned. Even if the test result were + for COVID, the patient should be able to proceed with surgery as long as he remains asymptomatic because the test could simply represent persistent + result from his infection at the end of April. Enough time has elapsed for him to proceed with surgery as well (> 4 weeks). documented in this encounter Plan of Treatment Upcoming Encounters Date Type Department Care Team (Late st Contact Info) Description 04/29/2024 11:00 AM EST Office Visit Radiation Oncology at [address] [phone] Tyrese Fitzgerald MD [facility] [place] [address] documented as of this encounter Visit Diagnoses Not on filedocumented in this encounter Administered Medications Inactive Administered Medications - up to 3 most recent administrations Medication Order MAR Action Action Date Dose Rate Site albumin (human) 5% 250 mL intravenous solution Intravenous, CONTINUOUS PRN, Starting on Sat06/28/21 at 2233, Until Sat06/28/21 at 2356, Anesthesia Intra-op, Routine New Bag 06/28/2021 10:33 PM EST ampicillin-sulbactam (Unasyn) 3 g vial attach to sodium chloride 0.9% 100 mL Mini-Bag Plus 3 g, Intravenous, ONCE, 1 dose, On Sat06/28/21 at 0700, Administer over 30 Minutes, Warning Vesicant/Irritant Medication , Day of Surgery (Day of Procedure), Indication for (Active or Suspected): Prophylaxis Bolus 06/28/2021 10:36 PM EST 3 g Bolus 06/28/2021 6:41 PM EST 3 g Bolus 06/28/2021 2:41 PM EST 3 g dexamethasone (Decadron) injection Intravenous, PRN, Starting on Sat06/28/21 at 0901, Until Sat06/28/21 at 2356, Anesthesia Intra-op, Routine Given 06/28/2021 9:01 AM EST 8 mg dexmedetomidine (Precedex) (4 mcg/mL) bolus injection (Anesthsia) Intravenous, PRN, Starting on Sat06/28/21 at 2316, Until Sat06/28/21 at 2356, Anesthesia Intra-op, Routine Given 06/28/2021 11:18 PM EST 8 mcg Given 06/28/2021 11:16 PM EST 8 mcg electrolyte replacement solution (pH 7.4) (Normosol-R, Plasmalyte-A) infusion Intravenous, CONTINUOUS PRN, Starting on Sat06/28/21 at 1935, Until Sat06/28/21 at 2356, Anesthesia Intra-op New Bag 06/28/2021 7:35 PM EST ePHEDrine sulfate (5 mg/mL) multi-dose injection Intravenous, PRN, Starting on Sat06/28/21 at 0854, Until Sat06/28/21 at 2356, Anesthesia Intra-op, Routine Given 06/28/2021 9:47 AM EST 10 mg Given 06/28/2021 8:54 AM EST 10 mg fentaNYL (pf) (50 mcg/mL) multi-dose injection Intravenous, PRN, Starting on Sat06/28/21 at 0757, Until Sat06/28/21 at 2356, Anesthesia Intra-op, Routine Given 06/28/2021 8:14 AM EST 100 mcg Given 06/28/2021 8:07 AM EST 100 mcg Given 06/28/2021 7:57 AM EST 50 mcg glycopyrrolate (Robinul) (0.2 mg/mL) multi-dose injection Intravenous, PRN, Starting on Sat06/28/21 at 0906, Until Sat06/28/21 at 2356, Anesthesia Intra-op, Routine Given 06/28/2021 10:52 PM EST 0.4 mg Given 06/28/2021 9:06 AM EST 0.4 mg HYDROmorphone (Dilaudid) (2 mg/mL) multi-dose injection solution Intravenous, PRN, Starting on Sat06/28/21 at 2136, Until Sat06/28/21 at 2356, Anesthesia Intra-op, Routine Given 06/28/2021 10:57 PM EST 0.2 mg Given 06/28/2021 9:49 PM EST 0.4 mg Given 06/28/2021 9:36 PM EST 0.4 mg lactated ringers infusion 1,000 mL, at 100 mL/hr, Intravenous, CONTINUOUS, Starting on Sat06/28/21 at 0700, Until Lyndsay 06/29/21 at 0016, Day of Surgery (Day of Procedure) New Bag 06/28/2021 2:03 PM EST New Bag 06/28/2021 10:00 AM EST New Bag 06/28/2021 7:08 AM EST 1,000 mLs 100 mL/hr lactated ringers infusion Intravenous, CONTINUOUS PRN, Starting on Sat06/28/21 at 0810, Until Sat06/28/21 at 2356, Anesthesia Intra-op [facility] 06/28/2021 8:10 AM EST midazolam (pf) (Versed) (1 mg/mL) multi-dose injection Intravenous, PRN, Starting on Sat06/28/21 at 0744, Until Sat06/28/21 at 2356, Anesthesia Intra-op, Routine Given 06/28/2021 7:44 AM EST 2 mg neostigmine (Bloxiver) (1 mg/mL) injection Intravenous, PRN, Starting on Sat06/28/21 at 0906, Until Sat06/28/21 at 2356, Anesthesia Intra-op, Routine Given 06/28/2021 10:52 PM EST 3 mg Given 06/28/2021 9:06 AM EST 3 mg ondansetron (pf) (Zofran) (2 mg/mL) injection Intravenous, PRN, Starting on Sat06/28/21 at 2257, Until Sat06/28/21 at 2356, Anesthesia Intra-op, Routine Given 06/28/2021 10:57 PM EST 8 mg PHENYLephrine (Margarito-Synephrine) (80 mcg/mL) in sodium chloride 0.9% 250 mL infusion Intravenous, CONTINUOUS PRN, Starting on Sat06/28/21 at 0914, Until Sat06/28/21 at 2356, Anesthesia Intra-op, Routine Rate/Dose Change 06/28/2021 7:58 PM EST 40 mcg/min 30 mL/hr Rate/Dose Change 06/28/2021 6:32 PM EST 50 mcg/min 37.5 mL /hr Rate/Dose Change 06/28/2021 11:43 AM EST 40 mcg/min 30 mL/ hr PHENYLephrine in NS (PF) (MARGARITO-SYNEPHRINE) 0.8 mg/10 mL (80 mcg/mL) multi-dose injection Syrg Intravenous, PRN, Starting on Sat06/28/21 at 0843, Until Sat06/28/21 at 2356, Anesthesia Intra-op, Routine Given 06/28/2021 9:14 AM EST 80 mcg Given 06/28/2021 8:45 AM EST 80 mcg Given 06/28/2021 8:43 AM EST 80 mcg propofoL (Diprivan) (10 mg/mL) infusion Intravenous, CONTINUOUS PRN, Starting on Sat06/28/21 at 0828, Until Sat06/28/21 at 2356, Anesthesia Intra-op, Routine Rate/Dose Change 06/28/2021 10:32 PM EST 20 mcg/kg/min 13.608 mL/hr Rate/Dose Change 06/28/2021 7:02 PM EST 40 mcg/kg/min 27.2 16 mL/hr Rate/Dose Change 06/28/2021 9:32 AM EST 50 mcg/kg/min 34.0 2 mL/hr propofoL (Diprivan) 10 mg/mL bolus injection (Anesthesia) Intravenous, PRN, Starting on Sat06/28/21 at 0757, Until Sat06/28/21 at 2356, Anesthesia Intra-op Given 06/28/2021 9:36 PM EST 40 mg Given 06/28/2021 9:25 PM EST 50 mg Given 06/28/2021 8:05 AM EST 50 mg remifentaniL (Ultiva) (0.02 mg/mL) infusion (Anesthesia) Intravenous, CONTINUOUS PRN, Starting on Sat06/28/21 at 0828, Until Sat06/28/21 at 2356, Anesthesia Intra-op Restarted 06/28/2021 4:50 PM EST 0.1 mcg/kg/min 34.02 mL/hr Rate/Dose Change 06/28/2021 11:02 AM EST 0.1 mcg/kg/min 34 .02 mL/hr Rate/Dose Change 06/28/2021 10:33 AM EST 0.05 mcg/kg/min 1 7.01 mL/hr rocuronium (Zemuron) (10 mg/mL) multi-dose injection Intravenous, PRN, Starting on Sat06/28/21 at 0805, Until Sat06/28/21 at 2356, Anesthesia Intra-op, Routine Given 06/28/2021 9:49 PM EST 20 mg Given 06/28/2021 9:25 PM EST 30 mg Given 06/28/2021 8:05 AM EST 50 mg sodium chloride 0.9% infusion Intravenous, CONTINUOUS PRN, Starting on Sat06/28/21 at 1900, Until Sat06/28/21 at 2356, Anesthesia Intra-op New Bag 06/28/2021 6:16 PM EST succinylcholine (Anectine;Quelicin) (20 mg/mL) injection Intravenous, PRN, Starting on Sat06/28/21 at 0757, Until Sat06/28/21 at 2356, Anesthesia Intra-op, Routine Given 06/28/2021 7:57 AM EST 100 mg documented in this encounter Care Teams Band Sawmill Operator Relationship 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
--- OUTSIDE RECORDS SUMMARY | 2024-02-10 15:17 | XMS_ITS | Encounter Summary ---
Author Organization [facility] [place] [address] Care Team Providers Care Gypsum Roofer Name Role Phone Ilya Medina MD Primary Care Provider [phone] Encounter Details Date Type Department Care Team (Late st Contact Info) Description 07/07/2021 11:00 AM EST Office Visit Audiology at [address] [phone] Marci Rodrigues AUD [facility] [place] [address] Mixed hearing loss, bilateral Social History Tobacco Use Types Packs/Day Years [...] as of this encounter Progress Notes * Marci Rodrigues AUD - 07/07/2021 11:00 AM EST Suman Warner was seen for an audiologic evaluation. Please refer to the scanned audiogram in the electronic medical record for findings, impressions and recommendations. Elena Neff Clinical [place] [address] [phone] (fax) documented in this encounter Plan of Treatment Upcoming Encounters Date Type Department Care Team (Late st Contact Info) Description 04/29/2024 11:00 AM EST Office Visit Radiation Oncology at [address] [phone] Tyrese Fitzgerald MD [facility] [place] [address] documented as of this encounter Procedures Procedure Name Priority Date/Time Associated Diagnosis Comments COMPREHENSIVE HEARING TEST Routine 07/07/2021 11:16 AM EST documented in this encounter Results * Comprehensive hearing test (07/07/2021 11:16 AM EST) 07/07/2021 11:1 6 AM EST Narrative [facility]UD[facility] COMP - 07/07/2021 11:16 AM EST Post-op audiogram. ??Dr. Hernández requested left masked bone testing only. ??Please see his notes. ?? Procedure Note Unknown - 07/07/2021 Post-op audiogram. Dr. Hernández requested left masked bone testing only.Please see his notes. Marci [facility]UD[facility] documented in this encounter Visit Diagnoses Diagnosis Mixed hearing loss, bilateral documented in this encounter Care Teams Gypsum Roofer Relationship 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
--- OUTSIDE RECORDS SUMMARY | 2024-02-10 15:17 | XMS_ITS | Encounter Summary ---
Author Organization [facility] [place] [address] Care Team Providers Care Janitor Cleaner Name Role Phone Ilya Medina MD Primary Care Provider [phone] Encounter Details Date Type Department Care Team (Late st Contact Info) Description 07/03/2021 Telephone [place] [phone] Ruby Farley Social History Tobacco Use Types Packs/Day Years [...] encounter Miscellaneous Notes * Telephone Encounter - Ruby Farley - 07/03/2021 9:37 PM EST Got message from Dr. Darby and said this patient needs to see her on Saturday and have an audiogramprior. So new times for 07/07 are checking in at 10:45 for the audiogram first and then see Dr at 2pm * Telephone Encounter - Ruby Farley - 07/03/2021 2:22 PM EST LVM on [phone] of scheduled appointment and requested call back to confirm or re-dahlia. 07/07/2021 check in at 10am and told him I would also send a mYDh that he can respond to. Per message from Allegra / Dr. Hernández Can we please make him an appointment with an associate provider in 5-7 days for suture removal, wound check and drain removal ? Thanks documented in this encounter Plan of Treatment Upcoming Encounters Date Type Department Care Team (Late st Contact Info) Description 04/29/2024 11:00 AM EST Office Visit Radiation Oncology at [address] [phone] Tyrese Fitzgerald MD [facility] [place] [address] documented as of this encounter Visit Diagnoses Not on filedocumented in this encounter Care Teams Janitor Cleaner Relationship 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
--- OUTSIDE RECORDS SUMMARY | 2024-02-10 15:17 | XMS_ITS | Encounter Summary ---
Author Organization [facility] Address [facility] [place] [address] Care Team Providers Care Resist Coater Developer Name Role Phone Ilya Medina MD Primary Care Provider [phone] Reason for Visit * Physical Therapy (Routine) - Closed Specialty Diagnoses / Procedures Referred By Alonso jesus Referred To Contact Diagnoses Cancer of temporal bone Jose D Hoang MD [facility] [place] [address] Referral ID Status Reason Start Date Expiration Date V isits Requested Visits Authorized [id number] Closed Evaluate and Treat 07/10/2021 01/06/2022 12 12 Encounter Details Date Type Department Care Team (Late st Contact Info) Description 07/19/2021 10:00 AM EST Office Visit Radiation Oncology at [address] [phone] Tyrese Fitzgerald MD [facility] [place] [address] Malignant neoplasm of bones of [...] Sign Reading Time Taken Comments Blood Pressure 143/86 07/19/2021 10:07 AM EST Pulse 68 07/19/2021 10:07 AM EST Temperature 36.1 ??C (97 ??F) 07/19/2021 10: 07 AM EST Respiratory Rate - - Oxygen Saturation 99% 07/19/2021 10: 07 AM EST Inhaled Oxygen Concentration - - Weight 113.7 kg (250 lb 9.6 oz) 022 10:07 AM EST Height - - Body Mass Index 35.96 07/12/2021 9:46 AM EST documented in this encounter Progress Notes * Tyrese Fitzgerald MD - 07/19/2021 10:00 AM EST Images from the original note were not included. Radiation Oncology New Patient Visit PATIENT NAME: Suman Warner DATE OF : 1955 HISTORY OF PRESENT ILLNESS Suman Warner is a 66 y.o. 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 Left Tympanoplasty, Biopsies 03/31/21: -Pathology: ??A - [...] with regard ??to separately submitted involved specimens. MDTB Discussion : Patient is staged at a pT3 based on Modified Richardson Staging System for Temporal Bone SCCa. We [...] the round window), jugular and carotid canal. Post Tx Expected course post surgery Other Pertinent Issues: None Currently, he has the following symptoms: Symptom Description Intervention Pain / Odynophagia Denies Dysphagia Altered swallowing due to facial paralysis Dental Sees dentist regularly,using fluoride trays. Already cleared by dentistry Voice Increases slurring because of altered lip motion Xerostomia / Dysgeusia Left side of tongue occasionally numb, notes decreased taste on left. Increased xerostomia since surgery. Nutrition / Weight Loss No issues PEG N Altered Strength Dense facial paralysis, involving upper, mid, and lower face Altered Sensation Altered sensation left face Neck Symptoms Post-surgical tightness mild Trismus Denies Hearing / Otalgia No hearing on the left; hearing aids on right side Actively Smoking Never smoker Pack Years NA Distance from St. ~ 15 minutes Other No issues ECOG PS: 1 Grade ECOG PERFORMANCE STATUS 0 Fully active, able to carry on all pre-disease performance without restriction 1 Restricted in physically strenuous activity but ambulatory and able to carry out work of a light or sedentary nature 2 Ambulatory and capable of all selfcare but unable to carry out any work activities; up and about > 50% of waking hours 3 Capable of only limited selfcare; confined to bed or chair more than 50% of waking hours 4 Completely disabled; cannot carry on any selfcare; totally confined to bed or chair EXAM There were no vitals filed for this visit. Physical Exam Constitutional: Appearance: He is well-developed. HENT: Head: Comments: Left ear with serosanguineous drainage. EAC and conchal bowl filled with granulation tissue. No evidence of infection. Mouth/Throat: Comments: Visual inspection of OC and OP revealed no evidence of suspicious masses or lesions. Palpation revealed no suspicious masses and no induration along the posterior tongue. Moisture good. Teeth in good repair. Eyes: Pupils: Pupils are equal, round, and reactive to light. Neck: Comments: Palpation reveals no adenopathy in cervical, SCLV, ICLV dina basins. Well healed surgical incision. Cardiovascular: Rate and Rhythm: Normal rate. Pulmonary: Effort: Pulmonary effort is normal. Breath sounds: Normal breath sounds. Skin: Findings: No erythema. Neurological: Mental Status: He is alert and oriented to person, place, and time. Cranial Nerves: No cranial nerve deficit. Psychiatric: Behavior: Behavior normal. PROCEDURE: HISTORY Allergies as of 07/19/2021 ??? (No Known Allergies) Past Medical History: Diagnosis Date ??? GERD (gastroesophageal reflux disease) 02/06/2011 ??? Nocturia Past Surgical History: Procedure Laterality Date ??? PRG SOMATOSENSORY TEST, ANY/ALL PER. NERVES, TRUNK OR HEAD N/A 03/31/2021 FACIAL NERVE MONITORING, SETUP PERIPHERAL (WRVU 0.54) performed by Apolinar Hernández MD at [facility] MAIN OR ??? PRG SOMATOSENSORY TEST, ANY/ALL PER. NERVES, TRUNK OR HEAD Left 06/28/2021 FACIAL NERVE MONITORING, SETUP PERIPHERAL (WRVU 0.54) performed by Apolinar Hernández MD at [facility] OR ??? PRO ADJ TISS TRANSFER/REARRANGEMENT ANY AREA 30.1-60 SQCM Left 06/28/2021 ADJACENT TISSUE TRANSFER OR REARRANGEMENT; 30.1 TO 60.0 SQ CM, HEAD/NECK (WRVU 12.65) performed by Jose D Hoang MD at [facility] OR ??? PRO COLONOSCOPY, BIOPSY 10/09/2012 COLONOSCOPY FLEXIBLE, WITH BX performed by Xiang Owen MD at [facility] ENDOSCOPY ??? PRO EXC PAROTD, TOTAL, DISSECT 5TH NERV Left 06/28/2021 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, TOTAL, WITH DISSECTION AND PRESERVATION OF FACIAL NERVE(WRVU 19.53) performed by Jose D Hoang MD at [facility] OR ??? PRO MASTOIDECTOMY, COMPLETE Left 06/28/2021 MASTOIDECTOMY, COMPLETE (WRVU 12.56) performed by Apolinar Hernández MD at [facility] OR ??? PRO MICROSURG TECHNIQUES, REQ OPER MICROSCOPE Left 03/31/2021 MICROSCOPE USE (WRVU 3.46) performed by Apolinar Hernández MD at [facility] OR ??? PRO MICROSURG TECHNIQUES, REQ OPER MICROSCOPE N/A 06/28/2021 MICROSCOPE USE (WRVU 3.46) performed by Apolinar Hernández MD at [facility] OR ? ? PRO MUSCLE MYOCUTANEOUS/FASCIOUCUTANEOUS FLAP HEAD&NECK W/NAMED VASC PEDCL Left 06/28/2021 FLAP, MYOCUTANEOUS OR FASCIOCUTANEOUS, HEAD & NECK W NAMED VASC PEDICLE performed by Jose D Hoang MD at [facility] OR ??? PRO REMOVAL NODES, NECK, CERV MOD RAD Left 06/28/2021 @CERVICAL LYMPHADENECTOMY (MODIFIED RADICAL NECK DISSECTION) (WRVU 23.95) performed by Jose D Hoang MD at [facility] OR ??? PRO RESECT TEMPORAL BONE, HEAVY ANTIARMOR WEAPONS INFANTRYMAN APPRCH Left 06/28/2021 @RESECTION TEMPORAL BONE, EXTERNAL APPROACH (WRVU 37.42) performed by Apolinar Hernández MD at [facility] PRO ??? PRO TYMPANOPLASTY Left 03/31/2021 TYMPANOPLASTY (WRVU 10.05) performed by Apolinar Hernández MD at [facility] OR ??? PRO UPPER GI ENDOSCOPY, BIOPSY 03/20/2011 UPPER GASTROINTESTINAL ENDOSCOPY,WITH BIOPSY SINGLE OR MULTIPLE performed by JORDAN RAMOS at [facility] Social History Socioeconomic History ??? Marital status: [...] ??? Alcohol use: No ??? Drug use: Yes Types: Benzodiazapines ??? Sexual activity: Not on file Other Topics Concern ??? Not on file Social History Narrative ??? Not on file Social Determinants of Health Financial Resource Strain: Not on file Food Insecurity: Not on file Transportation Needs: Not on file Physical Activity: Not on file Housing Stability: Not on file No family history on file. ROS: I reviewed and agree with the nursing review of systems accompanying this encounter. The remainder of the comprehensive review of systems was negative with the exception of the pertinent positives and negatives noted above. MEDICATIONS Current Outpatient Medications on File Prior to Visit Medication Sig Dispense Refill ??? white petrolatum-mineral oiL (Refresh P.M.) Place 1 each into the left eye nightly. ??? mirabegron (Myrbetriq) 25 mg Tablet Sustained Release 24 hr Take by mouth daily. ??? predniSONE (Deltasone) 10 mg Tablet At conclusion of 60 mg / day course, take 4 tab by mouth x 4 days, then 3 tab x 4 days, then 2 tab x 4 days, then 1 tab x 4 days 40 tablet 0 ??? [] predniSONE (Deltasone) 20 mg Tablet Take 3 tablets by mouth daily for 7 days. 21 tablet 0 ??? [] valACYclovir (Valtrex) 500 mg Tablet Take 1 tablet by mouth 2 times daily for 7 days.14 tablet 0 ??? acetaminophen (Tylenol) 325 mg Tablet Take 2 tablets by mouth every 4 hours. 0 ??? carboxymethylcellulose (Refresh Plus) 0.5 % Dropperette Place 1 drop into both eyes 3 times daily as needed. ??? erythromycin (Romycin) 5 mg/gram (0.5 %) Ointment Place into the left eye 6 times daily. (Patient not taking: Reported on 07/12/2021) 3.5 g 0 ??? ibuprofen (Motrin) 400 mg Tablet Take 1 tablet by mouth every 6 hours. 30 tablet 0 ??? ciprofloxacin-dexamethasone (Ciprodex) 0.3-0.1 % Drops, Suspension Place 5 drops in ear(s) 2 times daily. Start this tomorrow after surgery on the operated ear and use until your follow-up. (Patient not taking: Reported on 07/12/2021) 10 mL 3 ??? loperamide (Imodium A-D) 2 mg Capsule Take 10 mg by mouth daily. ??? tamsulosin (Flomax) 0.4 mg Capsule Take 0.4 mg by mouth daily. ??? FLUoxetine (PROzac) 10 mg Capsule Take 10 mg by mouth daily. ??? atorvastatin (LIPITOR) 20 mg Tablet ??? dorzolamide-timolol (COSOPT) 22.3-6.8 mg/mL Drops ??? rabeprazole (ACIPHEX) 20 mg tablet Take 1 tablet by mouth 2 times daily. (Patient taking differently: Take 20 mg by mouth daily.) 30 tablet 12 No current facility-administered medications on file prior to visit. IMAGING I have personally reviewed the imaging reports and images referenced in the oncologic hx and agree with the assessment as stated. Further pertinent imaging data below CONTRAINDICATIONS TO RADIOTHERAPY NO YES: Date, site, dose (women only) X Prior Radiotherapy X Collagen-Vascular dz X ASSESSMENT / PLAN HN CANCER Staging CT HN PET-CT Oncologic Resection, now ~ 3 weeks out from surgery Further Staging None Required Therapy Discussion Suman Warner has received an oncologic resection of his malignancy. he has high risk features including pT3 disease using modified Richardson staging for temporal squamous cell carcinomas. We discussed the risks and benefits of adjuvant radiotherapy in detail, noting the limited evidence in this malignancy. The patient's case has been reviewed at the [facility] tumor board and it was felt adjuvantradiotherapy would be the best option for potential cure of his locally advanced malignancy. We discussed the rationale, logistics (including simulation, planning, and treatment) and efficacy of adjuvant radiotherapy. We discussed the risks of therapy, including but not limited to short termsequelae (fatigue, skin erythema, mucositis, alopecia, ageusia, xerostomia, weight loss) and halfway sequelae (tissue fibrosis, lymphedema, xerostomia, osteoradionecrosis, increased risk of dental caries, and the possibility of significant damage to soft tissue, bone or skin requiring surgical ormedical intervention). He has no hearing on that side, and we noted that we would likely diminish the function of sensorineural component of hearing on that side, which would have no functional consequences for him. Mr. Warner expressed an understanding of these risks. We discussed data demonstrating the benefitof starting expeditiously, within 6 weeks of completing treatment, but that this recommendation is extrapolated from mucosal squamous cell carcinomas. The patient had a number of questions regarding optimal therapy and potential side effects. These questions were answered to his satisfaction Therapy Decision Proceed with radiotherapy pending evaluation from surgical team (seeing today) regarding extent of healing Supportive Care Enteral Nutrition Not recommended Referrals Can Operator OTHER ISSUES None 45 minutes of this 60 minute visit were spent discussing treatment options. * Negin Damon RN - 07/19/2021 10:00 AM EST RADIATION ONCOLOGY NURSING INITIAL NURSING ASSESSMENT IDENTIFICATION: Suman Warner is a 66 y.o. year-old male with SCCa of the left middle ear/tempanic membrane PRESENTING SYMPTOMS/CHIEF COMPLAINT: REVIEW OF SYSTEMS: Please see ROS filed by patient and reviewed during this encounter. Answers for HPI/ROS submitted by the patient on 07/19/2021 Distress: 4 Review of Systems - Oncology IN THE PAST 12 MONTHS HAVE YOU: Fallen more than one time? No Injured yourself as result of the fall? N/A Experienced difficulty with walking/problems with balance? No Do you use any assistive devices? No Any history of collagen vascular diseases:No Any Implanted Devices/Hardware: no If yes please put alert in ARIA patient summary Prior Radiotherapy: no Prior Chemotherapy: no Prior Hormone Therapy: no LEARNING ASSESSMENT REVIEWED: yes ADVANCED DIRECTIVE: Not on file PAIN ASSESSMENT: 0 out of 10 *eD-H Adult PCS Flow Sheet if 4 or above SOCIAL ASSESSMENT: See EDH social assessment information entered. Support Systems: family Barriers to treatment: None identified by patient/nurse today Referrals/Interventions: SWING GRINDER per routine RADIATION SPECIFIC TEACHING: NCI Radiation Therapy and You Site specific teaching : Head and Neck teaching to be done on day of simulation by nursing. Other: PLAN: Per Dr. 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
--- OUTSIDE RECORDS SUMMARY | 2024-02-10 15:17 | XMS_ITS | Encounter Summary ---
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, except mandible; Postoperative examination Social History Tobacco Use Types [...] AM EST Office Visit Radiation Oncology at [address] [phone] Tyrese Fitzgerald MD [facility] [place] [address] documented as of this encounter Visit Diagnoses Diagnosis 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
--- OUTSIDE RECORDS SUMMARY | 2024-02-10 15:17 | XMS_ITS | Encounter Summary ---
Author Organization [facility] [place] [address] Care Team Providers Care Bank Accountant Name Role Phone Ilya Medina MD Primary Care Provider [phone] Reason for Referral * Physical Therapy (Routine) - Closed Specialty Diagnoses / Procedures Referred By Alonso jesus Referred To Contact Physical Therapy Diagnoses Status post neck dissection Cancer of temporal bone Apolinar Hernández MD [facility] [place] [address] Referral ID Status Reason Start Date Expiration Date V isits Requested Visits Authorized [id number] Closed Evaluate and Treat 07/19/2021 01/15/2022 12 12 Encounter Details Date Type Department Care Team (Late st Contact Info) Description 07/18/2021 Orders [place] [address] Nga Winter, RN Status post neck dissection; Cancer of temporal bone Social History Tobacco Use Types Packs/Day Years Used Date Smoking Tobacco: Never Smokeless Tobacco: Never Alcohol Use Standard Drinks/Week Comments No 0 (1 standard drink = 0.6 oz pur e alcohol) Overall Financial Resource Strain (CARDIA) Gertrudis diggs Date Recorded How hard is it for [...] EST Office Visit Radiation Oncology at [address] [phone] Tyrese Fitzgerald MD [facility] [place] [address] Scheduled Referrals Name Type Priority Associated Diagnoses Orde r Schedule Referral to Physical Therapy Outpatient Referral Routine Status post neck dissection Cancer of temporal bone Ordered: 07/19/2021 documented as of this encounter Visit Diagnoses Diagnosis Status post neck dissection 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
--- OUTSIDE RECORDS SUMMARY | 2024-02-10 15:17 | XMS_ITS | Encounter Summary ---
[place] [address] Care Team Providers Care Software Engineering Analyst Name Role Phone Ilya Medina MD Primary Care Provider [phone] Encounter Details Date Type Department Care Team (Late Contact Info) Description 06/01/2021 Patient Outreach Hematology [place] [phone] Estefany Quiñones RN Social History Tobacco Use Types Packs/Day [...] as of this encounter Progress Notes * Estefany Quiñones RN - 06/01/2021 4:37 PM EST Pre-Radiation Dental Evaluation with Dr. Gibbs on 06/05/21. Edith from the dental office affirms they will also take x-rays and a pano. documented in this encounter Plan of Treatment Upcoming Encounters Date Type Department Care Team (Late Contact Info) Description 04/29/2024 11:00 AM EST Office Visit Radiation Oncology at [address] [phone] Tyrese Fitzgerald MD [facility] [place] [address] documented as of this encounter Visit Diagnoses Not on filedocumented in this encounter Care Teams Software Engineering Analyst Relationship 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
--- OUTSIDE RECORDS SUMMARY | 2024-02-10 15:17 | XMS_ITS | Encounter Summary ---
Author Organization [place] [address] Care Team Providers Care Public Speaking Instructor Name Role Phone Ilya Medina MD Primary Care Provider [phone] Reason for Referral * Consultation (Routine) - Closed Specialty Diagnoses / Procedures Referred By Contac t Referred To Contact Radiation Oncology Diagnoses Cancer of temporal bone Jayne Darby MD [facility] [place] [address] Stj Rad Onc Treatment [address] [place] [phone] Referral ID Status Reason Start Date Expiration Date V isits Requested Visits Authorized [id number] Closed Consult, Test & Treat 07/10/2021 07/10/2022 1 1 * Physical Therapy (Routine) - Closed Specialty Diagnoses / Procedures Referred By Contac t Referred To Contact Diagnoses Cancer of temporal bone Jose D Hoang MD [facility] [place] [address] Referral ID Status Reason Start Date Expiration Date V isits Requested Visits Authorized [id number] Closed Evaluate and Treat 07/10/2021 01/06/2022 12 12 Encounter Details Date Type Department Care Team (Late st Contact Info) Description 07/07/2021 2:00 PM EST Office [place] [address] Jayne Darby MD [facility] [place] [address] Cancer of temporal bone Social History Tobacco [...] - Inhaled Oxygen Concentration - - Weight 114.8 kg (253 lb) 07/07/2021 1:50 PM EST Height 177.8 cm (5' 10) 07/07/2021 1:50 PM EST Body Mass Index 36.3 07/07/2021 1:50 PM EST documented in this encounter Progress Notes * Jayne Darby MD - 07/07/2021 2:00 PM EST OTOLARYNGOLOGY - HEAD & NECK SURGERY OUTPATIENT CLINIC FOLLOW-UP NOTE Name: Suman Warner Age/Sex: 66 y.o. male ENT Attending: Dr. Hoang/Dr. Hernández Patient ID Suman Warner is a 66 [...] cm) Adjuvant Radiation (Pending) Interval History Reports numbness and swelling post-auricularly and along the neck. Reports difficulty with elevating arm and bringing it back down with some shoulder dysfunction on the LEFT side. Reports that his LEFT eye corneal abrasion is much improved. Physical Exam General: NAD, non-ill appearing Face: Mild facial weakness of the LEFT face, less blinking of the LEFT eye, HB II, but no issues with eye closure or any facial drooping. Eyes: EOMI, conjunctiva healthy Ears: Normal right auricle, LEFT auricle with flap skin paddle taking place of ear canal (ear canalis closed) healthy appearing. Notable for significant swelling in the parotid/post-auricular regionof the flap inset however no evidence of infection or dehiscence. Nose: Patent nares, grossly normal appearance Oral Cavity: Mucosa is pink Neck: Neck incision connected to the post-auricular incision c/d/i, adrienne and drain removed. Chest: Unlabored breathing Neuro: Alert & oriented, moving extremities x 4 Procedures MAURO Drain & Staple Removal Verbal consent obtained. MAURO Drain and adrienne removed from the neck. Patient tolerated well. Pathology Surgical Pathology DIAGNOSIS A - LEFT [...] Shultz Verified: ??07/05/2021 12:00 ??Pathologist Performed at: ??-[facility] Dept. of Pathology, [place], [place] DISCUSSION It is difficult to assign an AJCC pathologic stage due to the inability to assess ??largest tumor dimension. No ?? perineural or lymphovascular invasion is recognized. ??Clinical/surgical correlation is needed to determine final margin status with regard ??to separately submitted involved specimens. Audiogram Audiogram 07/07/2021 Bone conduction line relatively stable to pre-operative audiogram on the LEFT side. *Personally reviewed and evaluated. ASSESSMENT & RECOMMENDATIONS Suman Warner is a 66 y.o. male Patient is healing well after his surgery. Patient was seen with Dr. Hoang in clinic. Patient was also discussed with Dr. Hernández from an otologic/oncologic perspective and audiometric results. Patient will continue to need to heal from his surgery. At least 20 minutes of this visit was spent counseling patient on adjuvant treatment plans and post-operative recovery process. Recommendations: 1. Referral to Physical Therapy for shoulder exercises (given neck dissection and standard post-operative need for rehabilitation in cases of Level IIA dissection). External referral placed. Patient will also work with home PT 2. Present patient at Tumor Board 07/13/2021. 3. Referral to Radiation Oncology to [facility] as detailed in Estefany Quiñones's note for preferred treatment location. Will determine need for adjuvant chemotherapy at [facility]. 4. Follow-up in [address] Hernández as requested by him. 5. Patient can follow-up PRN with me or ENT PENCIL MAKER/PA with Dr. Hoang from a H&N wound healing perspective in the next 1-2 weeks as well if he has any specific concerns. Jayne Darby MD, PGY-5 07/10/21 7:19 AM * Jose D Hoang MD - 07/07/2021 2:00 PM EST Patient seen and examined with resident. Agree with above documented in this encounter Plan of Treatment Upcoming Encounters Date Type Department Care Team (Late st Contact Info) Description 04/29/2024 11:00 AM EST Office Visit Radiation Oncology at [address] [phone] Tyrese Fitzgerald MD [facility] [place] [address] Scheduled Referrals Name Type Priority Associated Diagnoses Orde r Schedule Referral to Physical Therapy Outpatient Referral Routine Cancer of temporal bone Ordered: 07/10/2021 Referral to Radiation Oncology Outpatient Referral Routine Cancer of temporal bone Ordered: 07/10/2021 documented as of this encounter Visit Diagnoses Diagnosis 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
--- OUTSIDE RECORDS SUMMARY | 2024-02-10 15:17 | XMS_ITS | Encounter Summary ---
Author Organization [facility] Address [facility] [place] [address] Care Team Providers Care Gallery Or Museum Technician Name Role Phone Ilya Medina MD Primary Care Provider [phone] Encounter Details Date Type Department Care Team (Late st Contact Info) Description 07/19/2021 3:40 PM EST Office [place] [address] Jose D Tejada MD [facility] [place] [address] Cancer of temporal bone Social History Tobacco [...] Progress Notes * Jayne Darby MD - 07/19/2021 3:40 PM EST OTOLARYNGOLOGY - HEAD & NECK SURGERY OUTPATIENT CLINIC FOLLOW-UP NOTE Name: Suman Warner Age/Sex: 66 y.o. male ENT Attending: Dr. Tejada/Dr. Hernández Patient ID Suman Warner is a [...] 8 cm) Adjuvant Radiation (Pending) Interval History Continues to report numbness and swelling post-auricularly and along the neck. Reports that after the visit on 07/07/2021, his facial weakness worsened through the weekend and then he was put on antivirals for a week and tapering steroids. Physical Exam General: NAD, non-ill appearing Face: Facial weakness of the LEFT face, less blinking of the LEFT eye, HB V/, but no issues with eye closure. Eyes: EOMI, conjunctiva healthy Ears: Normal right auricle, LEFT auricle with devitalized skin paddle which was debrided. Subcutaneous fat deep with no obvious bleeding on sharp debridement. Some fat necrosis type/serous fluid emanating from the flap but no extensive purulence or evidence of infection or clear demarcated necrosis. Swelling in the parotid/post-auricular region of the flap inset however no evidence of infection or dehiscence. Nose: Patent nares, grossly normal appearance Oral Cavity: Mucosa is pink Neck: Neck incision connected to the post-auricular incision. Chest: Unlabored breathing Neuro: Alert & oriented, moving extremities x 4 ASSESSMENT & RECOMMENDATIONS Suman Warner is a 66 y.o. male Flap prognosis at this point seems unclear given that he has minimal to no pain at the site but thesubcutaneous fat is not obviously bleeding. There is some fat necrosis/serous fluid but no extensive purulence or evidence of infection. There is also no obvious necrosis. Since it is unclear, we will continue to monitor closely and ensure patient is healing well prior to radiation. Patient was seen with Dr. Tejada in clinic. At least 30 minutes of this visit was spent counseling patient about his post- operative flap and outcomes. Recommendations: 1. Tumor Board Recommendation 07/13/2021 notable for plan for Adjuvant Radiation - Patient saw Dr. Fitzgerald on 07/19/2021. 2. Follow-up in 1 week on 07/27/[address] Tejada and Dr. Hernández to view flap outcome Jayne Darby MD, PGY-5 07/19/21 5:28 PM [facility] OTOLARYNGOLOGY Attending Note Patient was seen and examined with the above resident. I agree with the history, exam findings, andrecommendations. Summary Some non-viability of the flap - this was debrided in the office today Will do wet-dry dressing changes and reassess next week. I appreciate the opportunity to be involved in Mr. Warner's care. 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
--- OUTSIDE RECORDS SUMMARY | 2024-02-10 15:17 | XMS_ITS | Encounter Summary ---
Author Organization [facility] [place] [address] Care Team Providers Care Explosive Ordnance Manager Name Role Phone Ilya Medina MD Primary Care Provider Encounter Details Date Type Department Care Team (Late Contact Info) Description 06/20/2021 Orders Only [place] [address] Leatha Vora, RN *Screening for COVID-19 virus Social History Tobacco Use Types Packs/Day Years [...] AM EST Office Visit Radiation Oncology at [address] [phone] Tyrese Fitzgerald MD [facility] [place] [address] documented as of this encounter Visit Diagnoses Diagnosis Encounter for screening laboratory testing for COVID-19 virus documented in this encounter Care Teams Explosive Ordnance Manager Relationship 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
--- OUTSIDE RECORDS SUMMARY | 2024-02-10 15:18 | XMS_ITS | Encounter Summary ---
Author Organization [facility] [place] [address] Care Team Providers Care Reconsignment Clerk Name Role Phone Ilya Medina MD Primary Care Provider Encounter Details Date Type Department Care Team (Late st Contact Info) Description 04/27/2021 10:00 AM EST Office Visit [place] [address] Jayne Darby MD [facility] [place] [address] Cancer of temporal bone Social History Tobacco [...] Progress Notes * Jayne Darby MD - 04/27/2021 10:00 AM EST OTOLARYNGOLOGY - HEAD & NECK SURGERY OUTPATIENT CLINIC FOLLOW-UP NOTE Name: Suman Warner Age/Sex: 65 y.o. male ENT Attending: Dr. Tejada Subjective/History of Present Illness Suman Warner is a 65 y.o. male who presents with SCCa of the LEFT ear. Reports constant otorrhea on the left since Spring 2020. Associated symptoms include diminished hearing. Denies fluctuationin hearing, facial weakness/facial spasm, tinnitus, dizziness/vertigo. Prior history of chronic middle ear disease with otologic surgical history pertinent for Left modified radical CWD tymp/mastoid in 1968 (Dora) for cholesteatoma, Left revision tymp/mastoid- OCR 20 years ago, and Right modified radial CWD tymp/mastoid [place] [address] Linda. Pathology pertinent for SCCa diagnosed by . PMH pertinent for HTN, HPL, SARITA, GERD, glaucoma, and anxiety. Physical Exam General: NAD, non-ill appearing Face: Symmetric without dysmorphic features Ears: Auricles symmetric, no lesions. Open meatus on the LEFT side Neck: Soft, trachea midline. Adequate submental tissue. Large neck circumference but good neck ROM. Chest: Unlabored breathing Neuro: Alert & oriented, moving extremities x [address] temporal bone: Right temporal bone: Tympanomastoidectomy changes are identified with fat packing partially filling the mastoid cavity. Focal osseous dehiscence measuring 3 mm in width involves the right lateral sigmoid plate. No associated soft tissue mass. This finding is likely chronic in nature. Middle ear ossicles are absent. Thickening of the retracted tympanic membrane is noted. Tegmen tympani is intact. Normal appearance of the inner ear structures. Left temporal bone: Tympanomastoidectomy changes are identified with nonspecific soft tissue material filling the obliterated middle ear cavity. Mild demineralization involves the cochlear promontory. The tegmen tympani is intact as is the floor of the middle ear cavity. Normal course of the facial nerve canal. Normally formed inner ear structures. ?? CT neck: No masses or lymphadenopathy identified. No masses along the visualized upper aerodigestive tract. Bilateral parotid and submandibular glands are normal as is the thyroid gland. Normal appearance of the stylomastoid foramina. Paranasal sinuses are clear as are the lung apices. Mild cervical degenerative change. *Personally reviewed and evaluated Pathology DIAGNOSIS A - Left ear hypotympanum, biopsy - Squamous cell carcinoma (fragments),(in-situ and invasive) well to moderately ??differentiated. B - Left posterior inferior drum & skin flap, excision - Squamous cell carcinoma,(fragments), well to moderately differentiated. The tumor ??appears to invade to a depth of 3-mm (greatest contiguous slide measure). C - Left anterior inferior drum & middle ear, biopsy - Squamous cell carcinoma (fragments), (in-situ and invasive) well to moderately ??differentiated. D - Left anterior drum & middle ear, biopsy - Squamous cell carcinoma (fragments), (in-situ and invasive) well to moderately ??differentiated. E - Left drum, over promontory, biopsy - Squamous cell carcinoma, (in-situ and invasive) well to moderately differentiated. Electronically signed by: ?Treasure Pierre DO Verified: ??04/10/2021 13:51 ??Pathologist Performed at: ??-[facility] Dept. of Pathology, [place], [place] ASSESSMENT & RECOMMENDATIONS Suman Warner is a 65 y.o. 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 Apolinar Hernández and Dr. Jose D Tejada. Plan would be to start with a cervical exposure with a neck dissection and vascular control with access to the internal jugular vein and the carotid and tracing up towards skull-base in addition to identification of nerves including but not limited to the vagus, glossopharyngeal, and hypoglossal. We then would turn to the otologic portion of the case at which point we would proceed with the subtotal temporal bone resection and skeletonization of the sigmoid sinus and bone over the carotid and possible mobilization of the facial nerve in conjunction with the labyrinthectomy and cochlectomy. After identification of the facial nerve, we would likely do the parotidectomy and after the bony defect is identified and created from the tumor resection, we would likely perform a flap reconstruction (anticipate likely myofascial submental flap for bulk) given that the ear canal would be over sewn closed. Other reconstruction options include temporalis muscle or sternocleidomastoid muscle, low possibility but could consider infrahyoid flap (may not reach pedicle length). Flap coverage will be important for adjuvant radiation which patient likely will need. We discussed risks including bleeding, infection, damage to surrounding structures namely the facial nerve, hypoglossal, accessory, vagus, glossopharyngeal, need for additional procedures, flap/woundgraft failure. Patient will have scars at surgical site, likely numbness, will lose hearing and be dizzy after surgery. Patient will likely stay inpatient for up to a week healing. This visit was conducted in conjunction with Dr. Apolinar Hernández for discussion of the otologic oncologicportion of the surgical case. Head and neck oncologic & reconstructive portion was discussed and staffed with Dr. Tejada who reviewed case and met patient as well. Patient also met our nurse navigator, Estefany Quiñones. Recommendations: 1. PET-CT Scan (ordered, needs to be scheduled prior to surgery) 2. Consent signed for Subtotal Temporal Bone Resection with Labyrinthectomy, Cochlectomy, Possible Mobilization of the Facial Nerve, Superficial Parotidectomy, Neck Dissection Levels IIA & III, and Flap Reconstruction. Surgical orders placed - will plan to book surgery ideally in the next 4-6 we eks. Jayne Darby MD, PGY-5 04/27/21 12:15 PM * Jose D Tejada MD - 04/27/2021 10:00 AM EST [facility] OTOLARYNGOLOGY Attending Note Patient was seen and examined with the above resident. I agree with the history, exam findings, andrecommendations. Summary This patient has an SCCa of the middle ear. He will require a subtotal temporal bone resection () as well as parotidectomy, neck dissection and flap reconstruction. We reviewed the parotid, neck and flap. Patient understands the plan and would like to proceed. I appreciate the opportunity to be involved in Mr. Warner's care. 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
--- OUTSIDE RECORDS SUMMARY | 2024-02-10 15:18 | XMS_ITS | Encounter Summary ---
[place] [address] Care Team Providers Care Senior Solutions Consultant Name Role Phone Ilya Barrera MD Primary Care Provider [phone] Reason for Visit * Reason Comments Suture / Staple Removal Encounter Details Date Type Department Care Team (Late st Contact Info) Description 10/16/2011 11:00 AM EDT Office Visit Dermatology [facility] [address] [place] [address] Enoc Vázquez MD [address] [facility] [place] [address] Visit for suture removal (Primary Dx) Social History Tobacco Use Types Packs/Day Years [...] Progress Notes * Enoc Vázquez MD - 10/16/2011 11:11 AM EDT Problem: Followup for suture removal and biopsy results. Suman follows up, and both of the submitted pathology specimens from the left eye, the medial and lateral sites, were intradermal nevi. Physical examination shows excellent healing of these sites. He does have a little bit of some bruising below the lateral canthal; this is mostly faded now. The light C and D sites from the left lateral neck and the nape of the neck are scabbing and healing well. Assessment and Plan: Intradermal nevi, left medial and lateral lower eyelid. a. Sutures removed. b. May discontinue wound care instructions. c. Patient reassured about benign biopsy results. d. 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 [id number] reminder in six months. documented in this encounter Plan of Treatment Upcoming Encounters Date Type Department Care Team (Late st Contact Info) Description 04/29/2024 11:00 AM EST Office Visit Radiation Oncology at [address] [phone] Tyrese Fitzgerald MD [facility] [place] [address] documented as of this encounter Visit Diagnoses Diagnosis Visit for suture removal- Primary Encounter for removal of sutures documented in this encounter Care Teams Senior Solutions Consultant Relationship Specialty Start Date End Date Ilya Barrera MD PCP - General 04/04/10 08/25/12 documented as of this encounter
--- OUTSIDE RECORDS SUMMARY | 2024-02-10 15:18 | XMS_ITS | Encounter Summary ---
[place] [address] Care Team Providers Care Jack Spooler Tender Name Role Phone Ilya Barrera MD Primary Care Provider [phone] Reason for Visit * Reason Comments Follow-up 6 month skin check Encounter Details Date Type Department Care Team (Late st Contact Info) Description 03/27/2012 4:30 PM EST Office Visit Dermatology [address] [place] [address] [address] [place], [place] [id number] Enoc Vázquez MD [address] [facility] [place] [address] Atypical nevus (Primary Dx) Social History Tobacco Use Types [...] Progress Notes * Enoc Vázquez MD - 03/27/2012 5:21 PM EST Problem: 1. Repeat six-month skin checkup. 2. History of atypical lentiginous junctional melanocytic proliferation, right lateral neck, borderline melanoma in situ, April 2010. 3. No personal or family history of melanoma. Suman follows up and has been doing well. The nevus excision sites have healed well, and the patient is pleased about that. He has not noted any particular new lesions of concern. He does have a single tag under the right jawline. Physical examination reveals a tag present on the left jawline just below his vasquez. He has a benign examination of the head and the neck, chest, back, hands, arms, forearms, thighs, and calves. There is no evidence of recurrent pigmentation at the excision site on the right lateral neck. The intradermal nevus excision sites healed beautifully for the patient. Assessment and Plan: 1. History of borderline melanoma in situ, right lateral neck. a. Patient reassured about benign examination today. b. Patient reassured no further treatment necessary. c. Recommend that I see him again in one year. May at that time consider just p.r.n. followup with return to clinic as necessary. 2. Tag, left submandibular jaw. a. After obtaining informed patient consent, the site was treated with LN2 times two. Return to clinic reminder one year. documented in this encounter Plan of Treatment Upcoming Encounters Date Type Department Care Team (Late st Contact Info) Description 04/29/2024 11:00 AM EST Office Visit Radiation Oncology at [address] [phone] Tyrese Fitzgerald MD [facility] [place] [address] documented as of this encounter Visit Diagnoses Diagnosis Atypical nevus- Primary Benign neoplasm of skin, site unspecified documented in this encounter Care Teams Jack Spooler Tender Relationship Specialty Start Date End Date Ilya Barrera MD PCP - General 04/04/10 08/25/12 documented as of this encounter
--- OUTSIDE RECORDS SUMMARY | 2024-02-10 15:18 | XMS_ITS | Encounter Summary ---
[place] [address] Care Team Providers Care Auxiliary Equipment Operator Name Role Phone Ilya Medina MD Primary Care Provider [phone] Encounter Details Date Type Department Care Team (Late Contact Info) Description 05/08/2021 Telephone [place] [phone] Raheel Gates RN Social History Tobacco Use Types Packs/Day [...] encounter Miscellaneous Notes * Telephone Encounter - Raheel Gates RN - 05/08/2021 8:10 AM EST Patient called to let us know that he has tested positive for Covid. Date of (+) test: 05/05/2021. documented in this encounter Plan of Treatment Upcoming Encounters Date Type Department Care Team (Late Contact Info) Description 04/29/2024 11:00 AM EST Office Visit Radiation Oncology at [address] [phone] Tyrese Fitzgerald MD [facility] [place] [address] documented as of this encounter Visit Diagnoses Not on filedocumented in this encounter Care Teams Auxiliary Equipment Operator Relationship 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
--- OUTSIDE RECORDS SUMMARY | 2024-02-10 15:18 | XMS_ITS | Encounter Summary ---
Author Organization [facility] Address [facility] [place] [address] Care Team Providers Care Artist Relationship Manager Name Role Phone Ilya Barrera MD Primary Care Provider [phone] Encounter Details Date Type Department Care Team (Late st Contact Info) Description 10/09/2012 2:30 PM EDT - 10/09/2012 3:30 PM EDT Surgery [place] [address] Rubin Owen MD [facility] [place] [address] COLONOSCOPY FLEXIBLE, WITH BX (WRVU 3.56) Social History Tobacco Use Types Packs/Day Years [...] Sign Reading Time Taken Comments Blood Pressure 111/68 10/09/2012 3:01 PM EDT Pulse 61 10/09/2012 3:01 PM EDT Temperature 36.6 ??C (97.9 ??F) 10/09/2012 1:40 PM ED T Respiratory Rate 16 10/09/2012 3:01 PM EDT Oxygen Saturation 99% 10/09/2012 3:01 PM EDT Inhaled Oxygen Concentration - - Weight 111.1 kg (245 lb) 10/09/2012 1:40 PM EDT Height 177.8 cm (5' 10) 10/09/2012 1:40 PM EDT Body Mass Index 35.15 10/09/2012 1:40 PM EDT documented in this encounter Discharge Instructions * Discharge Instructions* Charissa Khan, RN - 10/09/2012 3:04 PM EDT You may have received medications before and/or during your procedure which effect judgement and reaction time. Do not drive,operate machinery, drink alcoholic beverages or make important decisions for 24 hours. Be careful on stairs as you may be unsteady on your feet. You may eat a regular diet as tolerated. Do not smoke if you are alone. IV site ----slight redness or tenderness is normal. You may se a warm compress. If tenderness and redness increases of foul drainage occurs, please contact your MD. Please call [phone] before 5pm with problems, questions or concerns. After 5pm call [phone] and ask to speak with the pulp piler production operations engineer. Discharge instructions reviewed with patient who expresses understanding. Colonoscopy and polyp removal What to expect after the procedure You may feel a little more gassy or bloated than usual, this is normal. You should expect the return of normal bowel function in the next 2 to 3 days. Because some polyps were removed, you may see a little blood with the next few bowel movements, this should be a small amount ( less than a few tablespoons) and will resolve on it's own. ACTIVITY Because of the sedation that you received Your judgement and reaction time are effected ?? Go home and rest for the remainder for the day. You may resume your normal activities tomorrow ?? Change from one position to the next slowly because you may lose your balance unexpectedly. ?? Be careful on stairs, as you may be unsteady. FOR THE NEXT 24 HRS ?? DO NOT DRIVE OR OPERATE MACHINERY ?? DO NOT DRINK ALCOHOLIC BEVERAGES ?? DO NOT SIGN LEGAL DOCUMENTS ?? If you are a smoker: DO NOT SMOKE WHILE YOU ARE ALONE Diet ?? Start by eating small portions of foods that ordinarily will not upset your stomach, avoid gas producing foods for the next few days. ?? Be gentle with what you choose to start with ?? A soft diet may be helpful for the next 3 days as this may help to keep your stools soft. ?? Drink plenty of fluids ( unless your doctor has told you not to). Medicines Avoid medicines that influence the way your blood clots for the next week. These would include anti-inflammatory medicine, such as ibuprofen( Advil, Motrin) and naproxen ( Aleve). If you need something for discomfort, Tylenol (Acetaminophen) is safe if used as directed. Your Doctor will tell you when to restart your prescribed blood thinners The IV site-- slight tenderness, or redness is normal, you can use warm compresses if you get concerned. If the tenderness +/or redness increases or foul drainage and a red streak occurs, please contact your PCP immediately. When should you call for help? Call 911 anytime you think you may need emergency care. For example If you pass out (loss of consciousness) If you pass maroon or bloody stools If you have severe belly pain Call your healthcare provider or seek immediate medical care if: Your stools are black or tar like Your stools have streaks of blood that is more pronounced with each BM You have belly pain, or your belly is swollen and firm You vomit You have a fever You are very dizzy Watch closely for changes in your health, and be sure to contact your doctor if you have any problems. Your Doctor will let you know when you will need your next colonoscopy. The results of your test and your risk for colorectal cancer will help your doctor decide how often you need to be checked. Saturday-Saturday Clinic [phone] 8a-5p Same Day Endo [phone] 7a-8p Otherwise contact [phone] and ask to speak to the pulp piler production operations engineer Follow up care is a mims part of your treatment and safety. Be sure to make and go to all appointments, and call your doctor if you are having problems. Discharge instructions reviewed with patient who expresses understanding documented in this encounter Medications at Time of Discharge Medication Sig Dispensed Refills Start Date End Date rabeprazole (ACIPHEX) 20 mg tablet Take 1 tablet by mouth 2 times daily. 30 tablet 12 02/06/2011 atenolol (TENORMIN) 25 mg tablet Take 25 mg by mouth daily. 02/23/2021 Brimonidine-Timolol (COMBIGAN) 0.2-0.5 % Drop Place 1 drop into both eyes 2 times daily. 11/29/2010 02/23/2021 ALPRAZolam (XANAX) 0.25 mg tablet Take 0.25 mg by mouth as needed. 02/23/2021 pravastatin (PRAVACHOL) 20 mg tablet Take 40 mg by mouth daily. 02/23/2021 FLUoxetine (PROZAC WEEKLY) [address] capsule Take 90 mg by mouth. Every 10 days 02/23/2021 documented as of this encounter H&P Notes * Rubin Owen MD - 10/09/2012 2:16 PM EDT Gastroenterology & Hepatology Pre-Procedure History and Physical Procedure: Colonoscopy Indication: Diarrhea History of Present Illness: Pleasant 57M with diarrhea. PMH: Patient Active Problem List Diagnoses Code ??? Nocturia 788.43 ??? Atypical nevus 216.9 ??? Dysplastic nevus 216.9 ??? Chronic serous otitis media 381.10 ??? GERD (gastroesophageal reflux disease) 530.81 ??? Dizziness 780.4 ??? Nevus 216.9 ??? Visit for suture removal V58.32 ??? Chilblains 991.5 ??? Diarrhea 787.91 Medications: No current facility-administered medications on file prior to encounter. Current Outpatient Prescriptions on File Prior to Encounter Medication Sig Dispense Refill ??? rabeprazole (ACIPHEX) 20 mg tablet Take 1 tablet by mouth 2 times daily. 30 tablet 12 ??? Brimonidine-Timolol (COMBIGAN) 0.2-0.5 % Drop Place 1 drop into both eyes 2 times daily. ??? pravastatin (PRAVACHOL) 20 mg tablet Take 40 mg by mouth daily. ??? FLUoxetine (PROZAC WEEKLY) [address] capsule Take 90 mg by mouth. Every 10 days ??? ALPRAZolam (XANAX) 0.25 mg tablet Take 0.25 mg by mouth as needed. Allergies: No Known Allergies Exam: Patient Vitals for the past 24 hrs: BP Temp Pulse Resp SpO2 Height Weight 10/09/12 1340 146/87 mmHg 36.6 ??C (97.9 ??F) 50 21 100 % 177.8 cm (5' 10) 111.131 kg (245 lb) Airway examined Chest- clear Heart- RRR, nl s1, s2 Abdomen- normal bowel sounds, soft, non tender Assessment and Plan: Pleasant 57M with diarrhea, here for colonoscopy. Conscious sedation. Risks and benefits of the procedure were discussed with the patient. Consent has been signed. documented in this encounter Miscellaneous Notes * Miscellaneous - Provider, Scanning - 10/10/2012 11:01 AM EDT * Miscellaneous - Provider, Scanning - 10/10/2012 9:55 AM EDT documented in this encounter Plan of Treatment Upcoming Encounters Date Type Department Care Team (Late st Contact Info) Description 04/29/2024 11:00 AM EST Office Visit Radiation Oncology at [address] [phone] Tyrese Fitzgerald MD [facility] [place] [address] documented as of this encounter Procedures Procedure Name Priority Date/Time Associated Diagnosis Comments SURGICAL PATHOLOGY REPORT Routine 10/09/2012 2:55 PM EDT SPECIMEN TO PATHOLOGY Routine 10/09/2012 2:55 PM EDT SPECIMEN TO PATHOLOGY Routine 10/09/2012 2:55 PM EDT COLONOSCOPY FLEXIBLE-WITH BX (MSCHAD) Routine 10/09/2012 2:45 PM EDT Diarrhea COLONOSCOPY FLEXIBLE, WITH BX (WRVU 3.56) 10/09/2012 2:14 PM EDT Diarrhea COLONOSCOPY Routine 10/09/2012 1:56 PM EDT documented in this encounter Results * Surgical Pathology Report (10/09/2012 2:55 PM EDT) Surgical Pathology Report ? [facility] ? Provider: ?? RUBIN OWEN ?Pt. Name: ?? SUMAN WARNER ? Acc #: ?[id number] ?Pt. ? Col Date: ?? 10/09/2012 ? /Sex: ?1955,(57 years),Male ? Rec Date: ?? 10/09/2012 ? LOC: ?4T ? SURGICAL PATHOLOGY ? ---Pathologic Diagnosis--- ? Endoscopic biopsies - ? A. Colonic mucosa within normal limits. ? B. Tubular adenoma. ? CR-PX ? 10/10/12 ? AAS ? 10/10/12 Verified by: ? Akin Ewing MD ? Pathologist ? (Electronic Signature) ? The attending pathologist whose signature appears on this report has ? reviewed all diagnostic slides and has edited the gross and/or ? microscopic portion of the report in rendering the final pathologic ? diagnosis. ? ---Gross Description--- ? A - Labeled/Fixativ e: Random colon, formalin. ? Quantity/Size: Multiple, ranging from 0.2-0.4 cm. ? Tissue Description: Soft, pink tissues. ? Sections/Proces sing: (T2) ? B - Labeled/Fixativ e: Ascending colon polyp, formalin. ? Quantity/Size: Single, 0.2 cm. ? Tissue Description: Soft, pink polyp. ? Sections/Proces sing: (T1) ??sns ? ---Clinical Information--- ? Specimen Submitted: ? A - Random colon ? B - Ascending colon polyp ? Clinical History: ? Diarrhea ? Clinical Diagnosis: ? Same [place]KE [place] 10/09/2012 2:55 PM EDT Rubin Owen MD PATHOLOGY/CYTOLOGY O ANA LUISA Performing Organization Address [facility] de Phone Number LUKE OR[place]O * Specimen to Pathology (surgical or derm) (10/09/2012 2:55 PM EDT) AP Specimen 10/09/2012 2:55 PM EDT 10/09/2012 2:55 PM EDT Narrative LUKE LAIUM - 10/09/2012 2:55 PM EDT Specimen requisition ordered. ??Separate Pathology report to follow Rubin Owen MD PATHOLOGY/CYTOLOGY O ANA LUISA Performing Organization Address [facility] de Phone Number LUKE [place] * Specimen to Pathology (surgical or derm) (10/09/2012 2:55 PM EDT) AP Specimen 10/09/2012 2:55 PM EDT 10/09/2012 2:55 PM EDT Narrative LAURANER BESSIEIUM - 10/09/2012 2:55 PM EDT Specimen requisition ordered. ??Separate Pathology report to follow Rubin Owen MD PATHOLOGY/CYTOLOGY O ANA LUISA Performing Organization Address [facility] de Phone Number LUKE LAIUM * COLONOSCOPY (10/09/2012 1:56 PM EDT) COLONOSCOPY [facility] Endoscopy Patient Name: Suman Warner ? Procedure Date: 10/09/2012 1:56 PM ? Date of : 1955 ? Age: 57 ? Order #: [id number] ? Procedure: ? Colonoscopy Indications: ? Chronic diarrhea Providers: ? Rubin Owen MD, Connie Modi, ? RN, Neelima Nixon, Machine Assembler For Puller Over Referring MD: ?Ilya Barrera MD, Adarsh Page [...] - Discharge patient to home. ? _ Rubin Owen MD 10/09/2012 2:57 PM Number of Addenda: 0 Note Initiated On: 10/09/2012 1:56 PM PROVATION 10/09/2012 1:56 PM EDT Ilya Barrera MD GENERAL SURGICAL ORD ERABLES PROVATION documented in this encounter Visit Diagnoses Diagnosis Diarrhea Diarrhea documented in this encounter Administered Medications Inactive Administered Medications - up to 3 most recent administrations Medication Order MAR Action Action Date Dose Rate Site fentaNYL 50mcg/mL injection ONCE PRN, Starting on Lyndsay 10/09/12 at 1421, Until Lyndsay 10/09/12 at 1812, Pain, Intra-Operative (Intra-Procedure), Routine Given 10/09/2012 2:36 PM EDT 25 mcg Given 10/09/2012 2:24 PM EDT 50 mcg Given 10/09/2012 2:21 PM EDT 100 mcg midazolam (VERSED) injection ONCE PRN, Starting on Lyndsay 10/09/12 at 1421, Until Lyndsay 10/09/12 at 1812, Sleep, Intra-Operative (Intra-Procedure), Routine Given 10/09/2012 2:36 PM EDT 1 mg Given 10/09/2012 2:24 PM EDT 1 mg Given 10/09/2012 2:21 PM EDT 2 mg documented in this encounter Active and Recently Administered Medications Times are shown in EDT. PRN Medication Order 10/07/2012 10/08/2012 10/09/2012 fentaNYL 50mcg/mL injection (CANCELED) ONCE PRN, Starting on Lyndsay 10/09/12 at 1421, Until Lyndsay 10/09/12 at 1812, Pain, Intra-Operative (Intra-Procedure), Routine 1421 (Given - Provid er: Connie Modi RN)1424 (Given - Provider: Connie Modi RN)1436 (Given - Provider: Connie Modi, EUSEBIO) midazolam (VERSED) injection (CANCELED) ONCE PRN, Starting on Lyndsay 10/09/12 at 1421, Until Lyndsay 10/09/12 at 1812, Sleep, Intra-Operative (Intra-Procedure), Routine 1421 (Given - Provid er: Connie Modi, EUSEBIO)1424 (Given - Provider: Connie Modi, EUSEBIO)1436 (Given - Provider: Connie Modi, RN) documented in this encounter Care Teams Artist Relationship Manager Relationship Specialty Start Date End Date Ilya Barrera MD PCP - General 08/26/12 05/10/14 documented as of this encounter
--- OUTSIDE RECORDS SUMMARY | 2024-02-10 15:18 | XMS_ITS | Encounter Summary ---
Author Organization [facility] [place] [address] Care Team Providers Care Tire Adjuster Name Role Phone Ilya Medina MD Primary Care Provider Encounter Details Date Type Department Care Team (Late st Contact Info) Description 04/27/2021 Patient Outreach [place] [phone] Estefany Quiñones, RN Social History Tobacco Use Types Packs/Day [...] Progress Notes * Estefany Quiñones RN - 04/30/2021 2:23 PM EST [facility] Oncology Nurse Navigation Patient Intake & Care Plan Met with Suman Puckettrobanastasiia, who 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 Patient presents alone for this appointment. Reviewed Head & Neck symptoms, PMH, lifestyle choices, and dental care. Assessed for transportation, financial, social, and practical barriers to care. Concerns noted in Barriers/Interventions below. Of note patient sees his dentist regularly (every 6 months); next appointment is 05/04/2021. Suman presents very positive at this appointment. 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 He retired from his last position in November 2020. 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 His also works as a middle school pe teacher. They love having weekends free, time off throughout the year, and time off during the summer. During the summer they love to take 6 weeksor so and go camping. Suman also enjoys golfing. Suman has a lot of local social support. He has 2 adult sons, both of which are local. 1 son worksfor IT in [place], [place], and has twin sons. Suman also has a 5-1/2-year-old granddaughter whohe takes care of after school. 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 Suman knows to discuss th is matter with his supervisor extruding department at work. Outlined main ancillary services available to help support patient, including Social Work, Psycho Onc, Nutrition, PROJECT MANAGER FINANCE, and PT. Reviewed general timeline of surgery with potential adjuvant treatment, emphasizing the importance of early dental extractions, if needed. Also discussed long-term follow-up schedule. If adjuvant treatment is needed, patient would prefer [facility]. PLAN: ??? Surgery per Steven. Head and Neck Oncology Nurse Navigator is ARIANE Saab, RN. documented in this encounter Plan of Treatment Upcoming Encounters Date Type Department Care Team (Late st Contact Info) Description 04/29/2024 11:00 AM EST Office Visit Radiation Oncology at [address] [phone] Tyrese Fitzgerald MD [facility] DR [place] [address] documented as of this encounter Visit Diagnoses Not on filedocumented in this encounter Care Teams Tire Adjuster Relationship 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
--- OUTSIDE RECORDS SUMMARY | 2024-02-10 15:18 | XMS_ITS | Encounter Summary ---
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 Otolaryngology - Head and Neck Surgery Apolinar Hernández MD 04/27/21 10:42 PM [place] [phone] Office Patient Name: Suman Warner Date of : 1955 PCP: Ilya Medina MD Reason for Follow Up: LEFT Ear SCCa Interval History: Patient is s/p biopsies of middle ear. No major issues. Original note detailing presentation on 02/23/2021. Pertinent Exam Findings: Binocular otoscopy was performed and gelfoam packing was removed. Notable for identification of the facial nerve and the horizontal canal in the LEFT CWD mastoid cavity as well as [place]giak tympanic membrane as discussed which was positive for SCCa especially in the hypotympanum. Impression and Plan: Suman Warner is a 65 y.o. 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 We discussed that in line with the tumor board recommendations, we would recommend surgical intervention which would entail a subtotal temporal bone resection with total petrosectomy, to include labyrinthectomy / cochleectomy, as well as concomitant parotidectomy and selective neck dissection. In such a scenario, we discussed the potential for planned local / regional flap with ear overclosure inanticipation of possible adjuvant radiation therapy pending pathology findings. The implications ofsuch surgery with respect to hearing and balance were also extensively reviewed. We reviewed the surgical approach by reviewing the anatomy and diagrams and risks also to vascular structures including internal jugular, carotid, and neurologic risks including stroke and . We discussed that he would have dizziness after surgery as well as hearing sacrifice given the labyrinthectomy. We also discussed risk of facial nerve weakness/paralysis, particularly in the context of potential need for fa cial nerve re-routing during surgery, if necessary. Cervical exposure, parotidectomy, and neck dissection and flap would be performed in conjunction with the head and neck surgery team with Dr. Hoang. Time spent counseling the patient ~ 45 minutes. Otolaryngology Attending Physician Addendum I have seen and examined the patient and reviewed the resident's history and I agree with the details as written. The assessment and plan were formulated in discussion with me and I agree with them as documented. 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
--- OUTSIDE RECORDS SUMMARY | 2024-02-10 15:18 | XMS_ITS | Encounter Summary ---
Author Organization [facility] [place] [address] Care Team Providers Care Ophthalmology Technician Name Role Phone Ilya Medina MD Primary Care Provider [phone] Encounter Details Date Type Department Care Team (Late st Contact Info) Description 03/13/2021 Notes [place] [phone] Nga Winter RN Social History Tobacco Use [...] as of this encounter Progress Notes * Nga Winter RN - 03/13/2021 11:25 AM EDT Patient has forwarded this information to ENT nurse email to keep his surgical team updated: Father in 1977 of a brain tumor at the age of 59. Mother of Emphysema in 1985 at the age of 67. Grandfather on father???s side diabetes (had both legs below the knee removed) around 1964. [id number] at the age of 81. Grandmother on father???s side of a heart attach in 1968 at the age of 84. Grandfather on mother???s side in an accident. Grandmother on mother???s side of a Cerebral Hemorrhage in 1952 at the age of 67. I was diagnosed with sleep apnea around 6 years ago. I don???t snore but if I fall asleep on my back without my machine I will gasp for air. MEDICATION DORZOLAMIDE HCL/TIMOLOL MALEATE SHON 22.3-6.8 (EYE DROPS) 2 TIMES A DAY EACH EYE ATORVASTATIN CALCIUM 20MG (CHOLESTEROL) ONE A DAY TAMSULOSIN 0.4MG (PROSTATE) ONE A DAY FLUOXETINE 10MG CAPSULE (ANXIETY) ONE A DAY RABEPRAZOLE SODIUM 20MG (ACID REFLUX) ONE A DAY VITAMIN B-12 1000MG ONCE A DAY ABOUT ONCE A WEEK I TAKE 2 CAPLETS OF EXCEDRIN MIGRAINE FOR HEADACHE Patient also made aware he will be able to speak to surgical team in preoperative holding area prior to having the surgery. documented in this encounter Plan of Treatment Upcoming Encounters Date Type Department Care Team (Late st Contact Info) Description 04/29/2024 11:00 AM EST Office Visit Radiation Oncology at [address] [phone] Tyrese Fitzgerald MD [facility] [place] [address] documented as of this encounter Visit Diagnoses Not on filedocumented in this encounter Care Teams Ophthalmology Technician Relationship 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
--- OUTSIDE RECORDS SUMMARY | 2024-02-10 15:18 | XMS_ITS | Encounter Summary ---
Author Organization [facility] [place] [address] Care Team Providers Care Registered Nurse Float Pool Name Role Phone Ilya Barrera MD Primary Care Provider [phone] Reason for Visit * Reason Comments GI Problem Encounter Details Date Type Department Care Team (Late st Contact Info) Description 09/30/2012 2:00 PM EDT Office [place] [address] Adarsh Page APRN [facility] GASTROENTER[place] [address] Diarrhea (Primary Dx) Discharge Disposition: Home Social History Tobacco Use [...] Sign Reading Time Taken Comments Blood Pressure 126/76 09/30/2012 2:19 PM EDT Pulse 55 09/30/2012 2:19 PM EDT Temperature - - Respiratory Rate - - Oxygen Saturation - - Inhaled Oxygen Concentration - - Weight 116.6 kg (257 lb) 09/30/2012 2:19 PM EDT Height 177.8 cm (5' 10) 09/30/2012 2:19 PM EDT Body Mass Index 36.88 09/30/2012 2:19 PM EDT documented in this encounter Progress Notes * Adarsh Page RN - 09/30/2012 2:25 PM EDT Section of Gastroenterology and Hepatology [address] [place], [place] [phone] .Suman Warner : 1955 Patient is here for further evaluation of gastrointestinal symptoms at the request of Ilya Barrera MD. HPI: Long hx of soft stools. But in the last 6 months sx have worsened. No changes at time of onset. June 2012 began to have a left lower quadrant pain, intermittent basis. Began with once per week but when it peaked it was 3- 4x per day for 3-4 days per week. Stabbing pain. Lasted for 2 weeks. ?trigger. ?resolution. 15% of the time stools are watery and the other times mashed potato consistency. No blood in stool. With wiping will have a small amount of bright red bleeding. No mucus in stools. On average having 3 stools per day. Prior to this would awake have a bowel movement and no further stools during the day. Colonoscopy 2006, [facility], one polyp. At times can have cramping, urgency, especially in the last 4-5 months. Stools can be explosive and much gas. No particular trigger for sx. Cramping, urgency resolve once able to empty. Can have incontinent episodes. Does not awake during the night with gi sx. Has not tried medication for sx. The changes are pain, cramping, urgency, watery stools, gas. Notesstress may be playing a role. Last year lost 40 pounds intentionally. Gained 20 pounds. Back on diet. Diet: Breakfast: croatian muffin with honey, nestle quick milk, yogurt, toast with peanut butter. Lunch: sandwich. Supper: meat/veg/starch. Snacks: chips at night. Fluids: water. Does not eat late at night. Avoids fat greasy foods. No food allergies. No chronic nsaids. Tried avoided dairy with no effect. Tried eating more yogurt with no effect. No early satiety. No post-prandial sx. Abdominal u/s 2012, [facility], overall normal except right kidney ?liborio. Per pt had a CT scan, [facility], 2013and no worrisome features. Hx of gerd. Controlled with Aciphex 20mg qd. [place] 2010, [facility] [place], 3cm hiatal hernia, otherwise normal exam. No dysphagia, odynophagia, n/v, chest pain, ent concerns. July 2012 [facility], cbc, cmp, psa normal. History Social History ??? Marital Status: Spouse Name: N/A Number of Children: N/A ??? Years of Education: N/A Occupational History ??? Not on file. Social History Main Topics ??? Smoking status: Never Smoker ??? Smokeless tobacco: Never Used ??? Alcohol Use: No ??? Drug Use: Yes Special: Benzodiazapines (Xanax, Valium) ??? Sexually Active: Not on file Other Topics Concern ??? Not on file Social History Narrative ??? No narrative on file Medical History: anxiety, panic attacks, htn, hyperlipidemia, gerd Surgical History: mastoid surgery bilaterally Family History: no gi etiologies No Known Allergies Current outpatient prescriptions:rabeprazole (ACIPHEX) 20 mg tablet, Take 1 tablet by mouth 2 timesdaily., Disp: 30 tablet, Rfl: 12; Brimonidine-Timolol (COMBIGAN) 0.2-0.5 % Drop, Place 1 drop into both eyes 2 times daily., Disp: , Rfl: ; ALPRAZolam (XANAX) 0.25 mg tablet, Take 0.25 mg by mouth asneeded., Disp: , Rfl: ; pravastatin (PRAVACHOL) 20 mg tablet, Take 40 mg by mouth daily., Disp: , Rfl: FLUoxetine (PROZAC WEEKLY) [address] capsule, Take 90 mg by mouth. Every 10 days, Disp: , Rfl: ; DISCONTD: terazosin (HYTRIN) 2 mg capsule, Take 1 capsule by mouth nightly., Disp: 30 capsule, Rfl: 11 Review of Systems - Negative except General: Cardiac: see medical hx, controlled Resp: GI: see above : MS: Neuro: Skin: Psyche: Sleep: Endo: Impression: 1. Change in bowel habits: ?etiology. fodmap diet. Obtain ttg. Colonoscopy with colonic bx. (pt on 3 meds which can cause microscopic colitis). Imodium prn. F/u with pt once results received. 2. Gerd: Aciphex 20mg qd. I spent a total of 52 minutes face to face with this patient; 33 minutes were spent counseling the patient in the medical problems described above. Sincerely, Adarsh Page COLLEGE DIRECTOR Section of Gastroenterology and Hepatology documented in this encounter Miscellaneous Notes * Addendum Note - Laurita Almendarez - 09/30/2012 3:14 PM EDTAddended by: LAURITA ALMENDAREZ on: 09/30/2012 03:14 PM Modules accepted: Orders documented in this encounter Plan of Treatment Upcoming Encounters Date Type Department Care Team (Late st Contact Info) Description 04/29/2024 11:00 AM EST Office Visit Radiation Oncology at [address] [phone] Tyrese Fitzgerald MD [facility] [place] [address] documented as of this encounter Procedures Procedure Name Priority Date/Time Associated Diagnosis Comments TISSUE TRANSGLUTAMINASE, IGA Routine 09/30/2012 3:17 PM EDT Diarrhea TSH Routine 09/30/2012 3:17 PM EDT Diarrhea documented in this encounter Results * TSH (09/30/2012 3:17 PM EDT) Thyroid Stimulating Hormone 1.65 0.27 - 4.20 mcIU/mL [facility] Blood specimen (specimen) 09/30/2012 3:17 PM EDT 09/30/2012 3:21 PM EDT Narrative Resulting Agency Comment Spec In Lab Arvind Vaca MD CHEMISTRY ORDERABLES [facility] * Tissue transglutaminase, IgA (09/30/2012 3:17 PM EDT) TTG IgA Ab <4.0 <=3.9 u/ml [facility] Comment: Result Interpretation: Negative: ?<4 U/mL Weak Positive: ??4-10 U/mL Positive: ?>10 U/mL Blood specimen (specimen) 09/30/2012 3:17 PM EDT 10/01/2012 8:22 AM EDT Narrative Resulting Agency Comment Spec In Lab Arvind Vaca MD IMMUNOLOGY ORDERABLE S [facility] documented in this encounter Visit Diagnoses Diagnosis Diarrhea- Primary documented in this encounter Care Teams Registered Nurse Float Pool Relationship Specialty Start Date End Date Ilya Barrera MD PCP - General 08/26/12 05/10/14 documented as of this encounter
--- OUTSIDE RECORDS SUMMARY | 2024-02-10 15:18 | XMS_ITS | Encounter Summary ---
Author Organization [facility] Address [facility] 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, except mandible Procedures NM PET CT Standard Plus Head and Neck Jayne Darby MD [facility] [place] [address] [place] [address] Referral ID Status Reason Start Date Expiration Date V isits Requested Visits Authorized [id number] Closed Specialty Service Requested 05/01/2021 10/28/2021 1 1 Encounter Details Date Type Department Care Team (Latest Contact Info) Description 05/04/2021 12:28 PM EST - 05/04/2021 11:59 PM [facility] Hospital Encounter [place] [address] Apolinar Hernández MD [facility] [place] [address] Discharge Disposition: Home Social History Tobacco Use [...] your follow-up. 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 Start this tomorrow after surgery on the operated ear and use until your follow-up. 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, except mandible POCT GLUCOSE Routine 05/04/2021 12:33 PM EST documented in this encounter Results * POCT Glucose (05/04/2021 12:33 PM EST) Glucose, POC 123 65 - 199 mg/dL [facility] Comment: Supplemental ranges: <140 mg/dL before meals <180 mg/dL all other times of the day Blood 05/04/2021 12:3 3 PM EST 05/04/2021 12:33 PM EST Apolinar Hernández MD POINT OF CARE TEST O RDERABLES [facility] [place] [address] documented in this encounter Visit Diagnoses Not on filedocumented in this encounter Care Teams Farm Adviser Relationship 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
--- OUTSIDE RECORDS SUMMARY | 2024-02-10 15:18 | XMS_ITS | Encounter Summary ---
[place] [address] Care Team Providers Care Offset Machine Operator Name Role Phone Lawson Hankins MD Primary Care Provider [phone] Reason for Visit * Reason Comments Follow-up Encounter Details Date Type Department Care Team (Late st Contact Info) Description 05/11/2014 2:45 PM EST Office Visit Dermatology at [address] [phone] Enoc Vázquez MD [address] [facility] [place] [address] Chilblains, initial encounter Discharge Disposition: Home Social History Tobacco Use [...] Progress Notes * Enoc Vázquez MD - 05/11/2014 3:20 PM EST Problem: Followup soreness, second left toe. Suman follows up after last seeing me in April 2012. He had no problems last winter, but this winter and just about a month ago, he developed a painful bump at the distal tip somewhat medially of the left second toe. He thought it might have been a splinter or maybe a wart. It was painful to walk on. It then developed into a more widespread, broad-based blister, but it never opened up and never drained. It became discolored and somewhat red, but over the last couple weeks the discomfort associated with this has largely resolved, although it is still discolored. Physical examination reveals a pleasant, 58-year-old gentleman who has a faint, erythematous, slightly purpuric, round, evenly marginated patch with a central linear area of darker, violaceous discoloration suggestive of an area of mild chilblains. However, its location along the distal medial second toe would be somewhat unusual. The other toes are uninvolved. He has no involvement of his fingers or fingertips. Assessment and Plan: Question localized vasospasm, left third toe. a. The patient's left third toe is his longest toe. b. The patient has not been outside much and does enjoy winter sports. 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 c. The patient does have a Raynaud-like phenomenon on one of his fingertips when he gets something cold out of the freezer or refrigerator. I recommended that he try to keep his foot warm with wool socks, wear warm boots when out of doors, and consider a [employer] foot-warmer type pad that could be added inside his shoes during cold weather. d. The patient's medications continue to be pravastatin, which he has been on for a number of years, and he is on atenolol and Aciphex. Atenolol should help to improve distal digit circulation. e. Patient reassured. Return to clinic p.r.n. I reassured him I see no evidence of wart, splinter, or any significant or worsening cutaneous findings. COPY: Ilya Barrera M.D. documented in this encounter Plan of Treatment Upcoming Encounters Date Type Department Care Team (Late st Contact Info) Description 04/29/2024 11:00 AM EST Office Visit Radiation Oncology at [address] [phone] Tyrese Fitzgerald MD [facility] DR [place] [address] documented as of this encounter Visit Diagnoses Diagnosis Chilblains, initial encounter documented in this encounter Care Teams Offset Machine Operator Relationship Specialty Start Date End Date Lawson Hankins MD [facility] [address] [place] [address] PCP - General 05/11/14 09/24/16 documented as of this encounter
--- OUTSIDE RECORDS SUMMARY | 2024-02-10 15:18 | XMS_ITS | Encounter Summary ---
Author Organization [facility] [place] [address] Care Team Providers Care Logistics Operations Director Name Role Phone Ilya Medina MD Primary Care Provider [phone] Encounter Details Date Type Department Care Team (Latest Contact Info) Description 02/10/2021 3:26 PM EDT - 02/10/2021 11:59 PM EDT Hospital [place] [phone] Discharge Disposition: Home Social History Tobacco Use [...] mg by mouth every other day. 02/08/2021 atorvastatin (LIPITOR) 20 mg Tablet 20 mg daily. 02/16/2016 dorzolamide-timolol (COSOPT) 22.3-6.8 mg/mL Drops Place into both eyes 2 times daily. 12/19/2015 rabeprazole (ACIPHEX) 20 mg tablet Take 1 tablet by mouth 2 times daily. 30 tablet 12 02/06/2011 FLUoxetine (PROzac) 10 mg Capsule Take by mouth. 01/05/2021 09/20/2021 dicyclomine (BENTYL) 10 mg capsule Take 1 capsule by mouth 3 times daily (with meals). 270 capsule 3 10/21/2012 02/23/2021 atenolol (TENORMIN) 25 mg tablet Take 25 [...] days 02/23/2021 documented as of this encounter Plan of Treatment Upcoming Encounters Date Type Department Care Team (Late st Contact Info) Description 04/29/2024 11:00 AM EST Office Visit Radiation Oncology at [address] [phone] Tyrese Fitzgerald MD [facility] [place] [address] documented as of this encounter Procedures Procedure Name Priority Date/Time Associated Diagnosis Comments SURGICAL PATHOLOGY REPORT Routine 02/10/2021 3:28 PM EDT documented in this encounter Results * Surgical Pathology Report (02/10/2021 3:28 PM EDT) Final Diagnosis [id number] ? Location: [facility]W The signing pathologist has (i) examined the relevant preparation(s) for the specimen(s) and (ii) rendered or confirmed the diagnosis(es). . ?Surgical Pathology DIAGNOSIS CONSULTATION CASE Outside slide(s) labeled [id number], collection date 02/01/2021. 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 ??(see Discussion.) Electronically signed by: ?MD Mirza, Anthonyandrei Shultz Verified: ??02/17/2021 8:51 ?? Pathologist Performed at: ??-[facility] [place] Dept. of Pathology, [place], [place] DISCUSSION Tangential sectioning and small sample size limit assessment for depth of invasion. ADDITIONAL STUDIES Whole slide scan: special service representative slide(s) SPECIMEN(S) SUBMITTED CONSULTATION CASE A - 1 slide(s) labeled [id number], collection date 02/01/2021. [id number] Report to: [facility] Surgical Pathology Department [facility], [facility], 2nd Floor [address], [place] ??[address] CLINICAL INFORMATION n/a SPECIMEN PROCESSING [facility] ([facility]) pathology slide(s) are reviewed. ??Refer to Diagnosis and Specimen Submitted for specific case information. For the full text of the [facility] report(s) please refer to Non- Documentation Pathology in the electronic health record (eDH). 02/17/2021 8:51 AM EDT [facility] Consult Case 02/10/2021 3:28 PM EDT 02/10/2021 3:28 PM EDT Apolinar Hernández MD PATHOLOGY/CYTOLOGY O RDERABLES [facility] [place] [address] documented in this encounter Visit Diagnoses Not on filedocumented in this encounter Care Teams Logistics Operations Director Relationship 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
--- OUTSIDE RECORDS SUMMARY | 2024-02-10 15:18 | XMS_ITS | Encounter Summary ---
Author Organization [facility] [place] [address] Care Team Providers Care Bridge Painter Name Role Phone Ilya Medina MD Primary Care Provider [phone] Encounter Details Date Type Department Care Team (Late Contact Info) Description 04/03/2021 Telephone [place] [phone] Nga Winter RN Social History Tobacco Use [...] Telephone Encounter - Nga Winter RN - 04/03/2021 1:32 PM EST Patient's call returned. Patient would like to know how long to lay down when placing drops in his ear; how long to leave cotton in ear? Factual information given with stated understanding. Patient voices understanding and acceptance of this advice and will call back if any further questions or concerns. documented in this encounter Plan of Treatment Upcoming Encounters Date Type Department Care Team (Late Contact Info) Description 04/29/2024 11:00 AM EST Office Visit Radiation Oncology at [address] [phone] Tyrese Fitzgerald MD [facility] DR [place] [address] documented as of this encounter Visit Diagnoses Not on filedocumented in this encounter Care Teams Bridge Painter Relationship 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
--- OUTSIDE RECORDS SUMMARY | 2024-02-10 15:18 | XMS_ITS | Encounter Summary ---
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 male followed for SCC of left ear, now s/p : Procedure(s): TYMPANOPLASTY (WRVU 10.05) MICROSCOPE USE (WRVU 3.46) FACIAL NERVE MONITORING, SETUP PERIPHERAL (WRVU 0.54) MODIFIER IRIDEX LASER MODIFIER,ENT MODERATE Interval history: Pain? No Drainage? No Vertigo? No Fever/Chills/Night Sweats? No Nausea/Vomiting? No Eating Regular diet? Yes Questions/Concerns? No PMH: reviewed, no interval change System review: the Constitutional and ENT systems are thoroughly reviewed for any changes. Pertinent positives are listed in the HPI. Physical Exam The patient is well developed, well nourished. Responds to commands appropriately. Vocalizes in a strong clear voice. Alert and oriented x3. Ears: Ear were carefully examined using binocular microscopy Left side: EAC obstructed with packing. No discharge or obvious signs of infection Facial Nerve Function is strong and symmetric (CN VII) House-Brackman I Palate is midline and voice is strong (CN IX & X) Tongue is midline (CN XII) Shoulder elevation is strong and symmetrical (XI) Audiological Exam None Labs and Imaging Significant lab values are as follows: None I reviewed the following imaging studies: None A/P: Now s/p Procedure(s): TYMPANOPLASTY (WRVU 10.05) MICROSCOPE USE (WRVU 3.46) FACIAL NERVE MONITORING, SETUP PERIPHERAL (WRVU 0.54) MODIFIER IRIDEX LASER MODIFIER,ENT MODERATE Doing well with no concerns. 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
--- OUTSIDE RECORDS SUMMARY | 2024-02-10 15:18 | XMS_ITS | Encounter Summary ---
Author Organization [facility] Alyssia [place] [address] Care Team Providers Care Nut Roaster Name Role Phone Ilya Medina MD Primary Care Provider [phone] Encounter Details Date Type Department Care Team (Late Contact Info) Description 05/08/2021 Telephone [place] [phone] Raheel Gates, RN Social History Tobacco Use Types Packs/Day [...] AM EST Office Visit Radiation Oncology at [address] [phone] [facility] [place] [address] documented as of this encounter Visit Diagnoses Not on filedocumented in this encounter Care Teams Nut Roaster Relationship 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
--- OUTSIDE RECORDS SUMMARY | 2024-02-10 15:18 | XMS_ITS | Encounter Summary ---
[place] [address] Care Team Providers Care Cigarette Making Examiner Name Role Phone Ilya Medina MD Primary Care Provider [phone] Reason for Referral * Diagnostic Test (Routine) - Closed Specialty Diagnoses / Procedures Referred By Contac t Referred To Contact Radiology Diagnoses Primary malignant neoplasm of temporal bone Procedures CT Neck Soft Tissue w Contrast (Generic) Apolinar Hernández MD [facility] [place] [address] [facility] [place] [address] Referral ID Status Reason Start Date Expiration Date V isits Requested Visits Authorized [id number] Closed Specialty Service Requested 02/08/2021 08/08/2022 1 1 * Diagnostic Test (Routine) - Denied Specialty Diagnoses / Procedures Referred By Contac t Referred To Contact Radiology Diagnoses Primary malignant neoplasm of temporal bone Procedures CT Temporal Bone wo Contrast (Generic) Apolinar Hernández MD [facility] [place] [address] [facility] [place] [address] Referral ID Status Reason Start Date Expiration Date V isits Requested Visits Authorized [id number] Denied Specialty Service Requested 03/08/2021 09/04/2021 1 0 Reason for Visit * Diagnostic Test (Routine) - Closed Specialty Diagnoses / Procedures Referred By Contac t Referred To Contact Radiology Diagnoses Primary malignant neoplasm of temporal bone Procedures CT Neck Soft Tissue w Contrast (Generic) Apolinar Hernández MD [facility] [place] [address] [facility] [place] [address] Referral ID Status Reason Start Date Expiration Date V isits Requested Visits Authorized [id number] Closed Specialty Service Requested 02/08/2021 08/08/2022 1 1 Encounter Details Date Type Department Care Team (Latest Contact Info) Description 02/23/2021 7:37 AM EDT - 02/23/2021 11:59 PM EDT Hospital [place] [address] Apolinar Hernández MD [facility] [place] [address] Primary malignant neoplasm of temporal bone Discharge Disposition: Home Social [...] mg Capsule Take by mouth. 01/05/2021 09/20/2021 documented as of this encounter Plan of Treatment Upcoming Encounters Date Type Department Care Team (Late st Contact Info) Description 04/29/2024 11:00 AM EST Office Visit Radiation Oncology at [address] [address] Tyrese Fitzgerald MD [facility] DR [place] [address] documented as of this encounter Procedures Procedure Name Priority Date/Time Associated Diagnosis Comments CT TEMPORAL BONE WO CONTRAST Routine 02/23/2021 8:36 AM EDT Primary malignant neoplasm of temporal bone CT NECK SOFT TISSUE W CONTRAST Routine 02/23/2021 8:36 AM EDT Primary malignant neoplasm of temporal bone documented in this encounter Results * CT Neck Soft Tissue w Contrast (Generic) (02/23/2021 8:36 AM EDT) Anatomical Region Laterality Modality Neck, Head Computed Tomogra phy 02/23/2021 8:52 AM EDT Impressions 02/23/2021 10:44 AM EDT Bilateral tympanomastoidectomy changes with nonspecific soft tissue attenuation filling the obliterated left middle ear cavity representing biopsy-proven squamous cell carcinoma. Mild erosive changes involving the left cochlear promontory. No lymphadenopathy. Thank you for letting us participate in the care of this patient. ??If you are a health care provider and have any questions regarding this report, please contact the number below. ??For patients who have questions please contact the health critical care registered nurse that requested your imaging first. ? Electronically signed by: Lon Calvin [facility] ([phone]), at 02/23/2021 10:44 AM Narrative 02/23/2021 10:44 AM EDT EXAMINATION: CT NECK SOFT TISSUE W CONTRAST (GENERIC), CT TEMPORAL BONE WO CONTRAST (GENERIC) CLINICAL HISTORY: Head/neck cancer, staging h/o chronic ear s/p canal wall down tympanomastoidectomy with chronic ulceration left mastoid bowl with bx c/w squamous cell carcinoma TECHNIQUE: CT neck performed after the intravenous administration of contrast. Administered 110.0 ml of OMNIPAQUE 350.00 mg/ml. COMPARISON: CT temporal bones dated 04/19/2009. FINDINGS: CT temporal bone: Right temporal bone: Tympanomastoidectomy [...] nerve canal. Normally formed inner ear structures. CT neck: No masses or lymphadenopathy identified. No masses along the visualized upper aerodigestive tract. Bilateral parotid and submandibular glands are normal as is the thyroid gland. Normal appearance of the stylomastoid foramina. Paranasal sinuses are clear as are the lung apices. Mild cervical degenerative change. Procedure Note Lon Calvin MD - 02/23/2021 EXAMINATION: CT NECK SOFT TISSUE W CONTRAST (GENERIC), CT TEMPORAL BONEWO CONTRAST (GENERIC) CLINICAL HISTORY: Head/neck cancer, staging h/o chronic ear s/p canal wall down tympanomastoidectomy with chroniculceration left mastoid bowl with bx c/w squamous cell carcinoma TECHNIQUE: CT neck performed after the intravenous administration of contrast.Administered 110.0 ml of OMNIPAQUE 350.00 mg/ml. COMPARISON: CT temporal bones dated 04/19/2009. FINDINGS: CT temporal bone: Right temporal bone: Tympanomastoidectomy changes are identified withfat packing partially filling the mastoid cavity. Focal osseous dehiscencemeasuring 3 mm in width involves the right lateral sigmoid plate. No associatedsoft tissue mass. This finding is likely chronic in nature. Middle ear ossicles are absent. Thickening of the retracted tympanicmembrane is noted. Tegmen tympani is intact. Normal appearance of the inner earstructures. Left temporal bone: Tympanomastoidectomy changes are identified withnonspecific soft tissue material filling the obliterated middle ear cavity. Mild demineralization involves the cochlear promontory. The tegmen tympani isintact as is the floor of the middle ear cavity. Normal course of the facialnerve canal. Normally formed inner ear structures. CT neck: No masses or lymphadenopathy identified. No masses along the visualizedupper aerodigestive tract. Bilateral parotid and submandibular glands are normalas is the thyroid gland. Normal appearance of the stylomastoid foramina. Paranasal sinuses are clear as are the lung apices. Mild cervicaldegenerative change. IMPRESSION Bilateral tympanomastoidectomy changes with nonspecific soft tissueattenuation filling the obliterated left middle ear cavity representingbiopsy-proven squamous cell carcinoma. Mild erosive changes involving the left cochlear promontory. No lymphadenopathy. Thank you for letting us participate in the care of this patient. If youare a health care provider and have any questions regarding this report,please contact the number below. For patients who have questions please contactthe health critical care registered nurse that requested your imaging first. Apolinar Hernández MD IMG CT ORDERABLES * CT Temporal Bone wo Contrast (Generic) (02/23/2021 8:36 AM EDT) Anatomical Region Laterality Modality Head Computed Tomogra phy 02/23/2021 8:52 AM EDT Impressions 02/23/2021 10:44 AM EDT Bilateral tympanomastoidectomy changes with nonspecific soft tissue attenuation filling the obliterated left middle ear cavity representing biopsy-proven squamous cell carcinoma. Mild erosive changes involving the left cochlear promontory. No lymphadenopathy. Thank you for letting us participate in the care of this patient. ??If you are a health care provider and have any questions regarding this report, please contact the number below. ??For patients who have questions please contact the health critical care registered nurse that requested your imaging first. ? Electronically signed by: Lon Calvin [facility] ([phone]), at 02/23/2021 10:44 AM Narrative 02/23/2021 10:44 AM EDT EXAMINATION: CT NECK SOFT TISSUE W CONTRAST (GENERIC), CT TEMPORAL BONE WO CONTRAST (GENERIC) CLINICAL HISTORY: Head/neck cancer, staging h/o chronic ear s/p canal wall down tympanomastoidectomy with chronic ulceration left mastoid bowl with bx c/w squamous cell carcinoma TECHNIQUE: CT neck performed after the intravenous administration of contrast. Administered 110.0 ml of OMNIPAQUE 350.00 mg/ml. COMPARISON: CT temporal bones dated 04/19/2009. FINDINGS: CT temporal bone: Right temporal bone: Tympanomastoidectomy [...] nerve canal. Normally formed inner ear structures. CT neck: No masses or lymphadenopathy identified. No masses along the visualized upper aerodigestive tract. Bilateral parotid and submandibular glands are normal as is the thyroid gland. Normal appearance of the stylomastoid foramina. Paranasal sinuses are clear as are the lung apices. Mild cervical degenerative change. Procedure Note Lon Calvin MD - 02/23/2021 EXAMINATION: CT NECK SOFT TISSUE W CONTRAST (GENERIC), CT TEMPORAL BONEWO CONTRAST (GENERIC) CLINICAL HISTORY: Head/neck cancer, staging h/o chronic ear s/p canal wall down tympanomastoidectomy with chroniculceration left mastoid bowl with bx c/w squamous cell carcinoma TECHNIQUE: CT neck performed after the intravenous administration of contrast.Administered 110.0 ml of OMNIPAQUE 350.00 mg/ml. COMPARISON: CT temporal bones dated 04/19/2009. FINDINGS: CT temporal bone: Right temporal bone: Tympanomastoidectomy changes are identified withfat packing partially filling the mastoid cavity. Focal osseous dehiscencemeasuring 3 mm in width involves the right lateral sigmoid plate. No associatedsoft tissue mass. This finding is likely chronic in nature. Middle ear ossicles are absent. Thickening of the retracted tympanicmembrane is noted. Tegmen tympani is intact. Normal appearance of the inner earstructures. Left temporal bone: Tympanomastoidectomy changes are identified withnonspecific soft tissue material filling the obliterated middle ear cavity. Mild demineralization involves the cochlear promontory. The tegmen tympani isintact as is the floor of the middle ear cavity. Normal course of the facialnerve canal. Normally formed inner ear structures. CT neck: No masses or lymphadenopathy identified. No masses along the visualizedupper aerodigestive tract. Bilateral parotid and submandibular glands are normalas is the thyroid gland. Normal appearance of the stylomastoid foramina. Paranasal sinuses are clear as are the lung apices. Mild cervicaldegenerative change. IMPRESSION Bilateral tympanomastoidectomy changes with nonspecific soft tissueattenuation filling the obliterated left middle ear cavity representingbiopsy-proven squamous cell carcinoma. Mild erosive changes involving the left cochlear promontory. No lymphadenopathy. Thank you for letting us participate in the care of this patient. If youare a health care provider and have any questions regarding this report,please contact the number below. For patients who have questions please contactthe health critical care registered nurse that requested your imaging first. Apolinar Hernández MD IMG CT ORDERABLES documented in this encounter Visit Diagnoses Diagnosis Primary malignant neoplasm of temporal bone documented in this encounter Administered Medications Inactive Administered Medications - up to 3 most recent administrations Medication Order MAR Action Action Date Dose Rate Site iohexoL (Omnipaque) (350 mg/mL) injection solution 0-200 mL 0-200 mL, Intravenous, ONCE PRN, 1 dose, Starting on Lyndsay 02/23/21 at 0822, Until Lyndsay 02/23/21 at 0822, Per Protocol, Warning Vesicant/Irritant Medication , Radiology Contrast, Routine Given 02/23/2021 8:22 AM EDT 110 mLs documented in this encounter Care Teams Cigarette Making Examiner Relationship 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
--- OUTSIDE RECORDS SUMMARY | 2024-02-10 15:18 | XMS_ITS | Encounter Summary ---
Author Organization [facility] [place] [address] Care Team Providers Care Foreign Language Teacher Name Role Phone Ilya Medina MD Primary Care Provider [phone] Encounter Details Date Type Department Care Team (Late st Contact Info) Description 03/01/2021 Telephone [place] [phone] Nga Winter RN Social History Tobacco Use [...] Telephone Encounter - Nga Winter RN - 03/01/2021 5:02 PM EDT Patient's call returned. Patient would like to forward a copy of the papers he's received from [employer] re:denial of a procedure Dr. Hernández has recommended. Patient would like email address to be left on his VM, as he's out hiking right now. Patient called back and nurse's email left for him ([email or web address] on his VM, along with call back number. documented in this encounter Plan of Treatment Upcoming Encounters Date Type Department Care Team (Late st Contact Info) Description 04/29/2024 11:00 AM EST Office Visit Radiation Oncology at [address] [phone] Tyrese Fitzgerald MD [facility] RADI[place] [address] documented as of this encounter Visit Diagnoses Not on filedocumented in this encounter Care Teams Foreign Language Teacher Relationship 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
--- OUTSIDE RECORDS SUMMARY | 2024-02-10 15:18 | XMS_ITS | Encounter Summary ---
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, except mandible Procedures NM PET CT Standard Plus Head and Neck Jayne Darby MD [facility] [place] [place] [address] [facility] [place] [address] Referral ID Status Reason Start Date Expiration Date V isits Requested Visits Authorized [id number] Closed Specialty Service Requested 05/01/2021 10/28/2021 1 1 Reason for Visit * Diagnostic Test (Routine) - Closed Specialty Diagnoses / Procedures Referred By Contac t Referred To Contact Radiology Diagnoses 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, except mandible Procedures NM PET CT Standard Plus Head and Neck Jayne Darby MD [facility] [place] [address] [facility] [place] [address] Referral ID Status Reason Start Date Expiration Date V isits Requested Visits Authorized [id number] Closed Specialty Service Requested 05/01/2021 10/28/2021 1 1 Encounter Details Date Type Department Care Team (Latest Contact Info) Description 05/04/2021 12:27 PM EST Hospital Encounter Nuclear Medicine at [facility] [place] [address] Apolinar Hernández MD [facility] [place] [address] Malignant neoplasm of bones of [...] EST Office Visit Radiation Oncology at [address] [phone] Tyrese Fitzgerald MD [facility] [place] [address] documented as of this encounter Procedures Procedure Name Priority Date/Time Associated Diagnosis Comments NM PET CT STANDARD PLUS HEAD AND NECK Routine 05/04/2021 1:53 PM EST 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 ??Small ill-defined focus of mildly increased activity in the region of the inferior left middle ear, which is nonspecific and may represent an area of chronic inflammation, however, a neoplastic process not excluded. 2. ??No other significant abnormalities. I have personally reviewed the image(s) and the resident's interpretation and agree with the findings, Thong Rubio MD at 05/04/2021 3:53 PM Thank you for letting us participate in the care of this patient. ??If you are a health care provider and have any questions regarding this report, please contact the number below. ??For patients who have questions please contact the health childcare teacher that requested your imaging first. ? 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 Evaluate for staging mets and occult mets in neck/parotid. TECHNIQUE: Following IV injection of 47-jyfrfy-2-deoxyglucose (FDG) a standard uptake of approximately 60 minutes, a noncontrast CT scan followed by a PET scan were acquired from the top of head to mid thighs. The noncontrast CT was used for anatomic localization and photon attenuation correction of the PET scan. Blood glucose level: 123 (mg/dL) FDG dose: 16.8 mCi COMPARISON: CT temporal bone and neck 02/23/2021. FINDINGS: HEAD/NECK: Small ill-defined focus of mildly increased activity in the region of the inferior left middle ear (axial image 47). Status post bilateral tympanomastoidectomy. No lymphadenopathy. CHEST: Multiple small FDG avid lymph nodes in the left axilla, consistent with benign reactive nodes due to recent Covid vaccination. Normal activity in all other soft tissue regions. No significant adenopathy or pulmonary nodules. ABDOMEN/PELVIS: Normal activity in all soft tissue regions. No lymphadenopathy. SKELETON/EXTREMITIES: Normal activity in all regions of the axial and visualized appendicular skeleton. 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 Evaluate for staging mets andoccult mets in neck/parotid. TECHNIQUE: Following IV injection of 13-ffafwy-4-deoxyglucose (FDG) astandard uptake of approximately 60 minutes, a noncontrast CT scan followed by aPET scan were acquired from the top of head to mid thighs. The noncontrast CT wasused for anatomic localization and photon attenuation correction of the PETscan. Blood glucose level: 123 (mg/dL) FDG dose: 16.8 mCi COMPARISON: CT temporal bone and neck 02/23/2021. FINDINGS: HEAD/NECK: Small ill-defined focus of mildly increased activity in the region ofthe inferior left middle ear (axial image 47). Status post bilateral tympanomastoidectomy. No lymphadenopathy. CHEST: Multiple small FDG avid lymph nodes in the left axilla, consistent withbenign reactive nodes due to recent Covid vaccination. Normal activity in allother soft tissue regions. No significant adenopathy or pulmonary nodules. ABDOMEN/PELVIS: Normal activity in all soft tissue regions. No lymphadenopathy. SKELETON/EXTREMITIES: Normal activity in all regions of the axial and visualized appendicular skeleton. IMPRESSION 1. Small ill-defined focus of mildly increased activity in the region ofthe inferior left middle ear, which is nonspecific and may represent an areaof chronic inflammation, however, a neoplastic process not excluded. 2. No other significant abnormalities. I have personally reviewed the image(s) and the resident's interpretationand agree with the findings, Thong Rubio MD at 05/04/2021 3:53 PM Thank you for letting us participate in the care of this patient. If youare a health care provider and have any questions regarding this report,please contact the number below. For patients who have questions please contactthe health childcare teacher that requested your imaging first. 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, except mandible documented in this encounter Administered Medications Inactive Administered Medications - up to 3 most recent administrations Medication Order MAR Action Action Date Dose Rate Site fludeoxyglucose (F-18) FDG injection 0-20 mCi 0-20 mCi, Intravenous, ONCE PRN, 1 dose, Starting on Lyndsay 05/04/21 at 1242, Until Lyndsay 05/04/21 at 1237, Per Protocol, Radiology Contrast, Routine Given 05/04/2021 12:37 PM EST 16.8 mCi Left Arm documented in this encounter Care Teams Physician Pediatrician Relationship 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
--- OUTSIDE RECORDS SUMMARY | 2024-02-10 15:18 | XMS_ITS | Encounter Summary ---
Author Organization [facility] [place] [address] Care Team Providers Care Kiln Furniture Saw Tender Name Role Phone Ilya Barrera MD Primary Care Provider [phone] Encounter Details Date Type Department Care Team (Late st Contact Info) Description 10/21/2012 [place] [phone] Keshia Esqueda RN Social History Tobacco Use Types Packs/Day [...] encounter Miscellaneous Notes * Telephone Encounter - Keshia Esqueda RN - 10/21/2012 3:35 PM EDT Per Adarsh Page See my note Labs ttg, tsh normal [place] path did not reveal colitis. TA polyp, repeat colo in 5 years. Sx are functional, ibs. Have him try bentyl 10mg tid. Call with progress. RN returning call to patient. Reviewed above. He states he would like to have the Bentyl but interestingly he stopped eating honey for a month and had no diarrhea. Yesterday he tried some on his toast and the diarrhea returned. He is going to avoid honey but not sure if that alone will control symptoms. Advised him to call to update up on symptoms and if Bentyl is helping. He agrees with this plan. documented in this encounter Plan of Treatment Upcoming Encounters Date Type Department Care Team (Late st Contact Info) Description 04/29/2024 11:00 AM EST Office Visit Radiation Oncology at [address] [phone] Tyrese Fitzgerald MD [facility] [place] [address] documented as of this encounter Visit Diagnoses Not on filedocumented in this encounter Care Teams Kiln Furniture Saw Tender Relationship Specialty Start Date End Date Ilya Barrera MD PCP - General 08/26/12 05/10/14 documented as of this encounter
--- OUTSIDE RECORDS SUMMARY | 2024-02-10 15:18 | XMS_ITS | Encounter Summary ---
Author Organization [facility] [place] [address] Care Team Providers Care Calibration Checker Name Role Phone Ilya Medina MD Primary Care Provider [phone] Encounter Details Date Type Department Care Team (Late st Contact Info) Description 05/02/2021 Telephone [place] [phone] Nga Winter RN Social History Tobacco Use [...] Telephone Encounter - Nga Winter RN - 05/02/2021 11:31 AM EST Patient called and left VM on nurse triage line. patient upset he hadn't been made aware of needinga PET scan. Patient is wondering why? What's it for? Why do I need it? As per Dr. Hoang/Dr. Darby's note 04/27: Recommendations: PET-CT Scan (ordered, needs to be scheduled prior to surgery) Call back number left if patient should have further questions. documented in this encounter Plan of Treatment Upcoming Encounters Date Type Department Care Team (Late st Contact Info) Description 04/29/2024 11:00 AM EST Office Visit Radiation Oncology at [address] [phone] Tyrese Fitzgerald MD [facility] [place] [address] documented as of this encounter Visit Diagnoses Not on filedocumented in this encounter Care Teams Calibration Checker Relationship 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
--- OUTSIDE RECORDS SUMMARY | 2024-02-10 15:18 | XMS_ITS | Encounter Summary ---
Author Organization [facility] [place] [address] Care Team Providers Care Scribing Machine Operator Name Role Phone Ilya Barrera MD Primary Care Provider [phone] Reason for Visit * Reason Onset Date Comments Medication Refill 10/21/2012 Encounter Details Date Type Department Care Team (Late Contact Info) Description 10/21/2012 Refill [place] [address] Adarsh Page APRN [facility] [place] [address] Social History Tobacco Use Types Packs/Day Years [...] EST Office Visit Radiation Oncology at [address] [phone] Tyrese Fitzgerald MD [facility] [place] [address] documented as of this encounter Visit Diagnoses Not on filedocumented in this encounter Care Teams Scribing Machine Operator Relationship Specialty Start Date End Date Ilya Barrera MD PCP - General 08/26/12 05/10/14 documented as of this encounter
--- OUTSIDE RECORDS SUMMARY | 2024-02-10 15:18 | XMS_ITS | Encounter Summary ---
Author Organization [facility] [place] [address] Care Team Providers Care Bench Inspector Name Role Phone Ilya Medina MD Primary Care Provider [phone] Reason for Visit * Reason Comments Other L ear with drainage. no pain. 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, left ear SCC of Left ear & Chronic Mastoiditis Karri Trinidad MD [address] [place] [address] [place] [address] Apolinar Hernández MD [facility] [place] [address] Referral ID Status Reason Start Date Expiration Date Visits Re quested Visits Authorized [id number] Closed 02/07/2021 02/07/2022 1 1 Encounter Details Date Type Department Care Team (Latest Contact Info) Description 02/23/2021 10:40 AM EDT Office Visit [place] [address] Apolinar Hernández MD [facility] [place] [address] Cancer of temporal bone (Primary Dx); Chronic tubotympanic suppurative otitis media of both [...] - Inhaled Oxygen Concentration - - Weight 116.2 kg (256 lb 1.6 oz) 021 10:31 AM EDT Height 177.8 cm (5' 10) 02/23/2021 10: 31 AM EDT Body Mass Index 36.75 02/23/2021 10:31 AM EDT documented in this encounter Progress Notes * Apolinar Hernández MD - 02/23/2021 10:40 AM EDT [facility] Otolaryngology - Head and Neck Surgery Apolinar Hernández MD 02/23/21 10:53 AM [place] [address] Office Patient Name: Suman Warner Date of : 1955 PCP: Ilya Medina MD Chief Complaint: left ear drainage History of Present Illness: Suman Warner is a 65 y.o. year old male with history of HTN, HPL, SARITA, GERD, glaucoma and anxiety who was seen today at the request of Karri Trinidad in consultation for squamous cell carcinoma, left ear. Patient with a history of chronic ear disease bilaterally status post multiple bilateral chronic ear surgeries. He underwent a left modified radical canal wall down tympanomastoidectomy in 1968 in [place] for cholesteatoma. Approximately 20 years ago, he reports he underwent a revision tympanomastoidectomy with ossicular chain reconstruction with subsequent hearing improvement on this side. Around 2002, he underwent a right modified radical canal wall down tympanomastoidectomy with Dr. Linda. He denies any significant hearing changes with this. Patient reports periodic otorrhea over the course of several decades on the left. Historically, he reports that he is seen approximately 3-4 times per year for surveillance and cleaning and periodic treatment with ototopical therapies for the left ear. He denies any significant recurrent otalgia. Denies any significant issues with the right ear. Starting in early spring of this year, he reports a more constant otorrhea on the left. Denies any bloody otorrhea. He was tried on a variety of ototopical therapies through Dr. Trinidad's office without relief. A persistent area of inflammation with granulation in the region of the inferior drum is reported. He subsequently underwent biopsy of this region with pathology revealing findings consistent with a moderately differentiated invasive squamous cell carcinoma. Patient reports that his hearing on the left has been somewhat diminished since the spring. Denies any fluctuating hearing. He has continued use of his hearing aids bilaterally, and has been using hearing aids since approximately 1999. Denies any significant tinnitus concerns. Denies any facial weakness or history of facial spasm. Denies any significant dizziness or vertigo history. 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 Patient recently retired from regular employment this past spring. Denies any past history of malignancy. No history of immunosuppression. Audiogram 02/23/2021 personally reviewed. Findings on the right reveal a severe rising to moderate sloping to severe profound mixed hearing loss. On the left, patient exhibits a severe mixed hearing loss. Bone-conduction thresholds largely symmetric. Speech healthcare receptionist thresholds at 40 dB for the right and 65 dB for the left. Word discrimination 100% at 90 dB for the right, and 84% at 90 dB for the left. Tympanometry not tested. Patient underwent CT temporal bone with CT neck with contrast 02/23/2021 which is reviewed. Findings reveal bilateral postoperative tympanomastoidectomy changes with nonspecific soft tissue attenuation filling the obliterated left middle ear cavity representing biopsy-proven squamous cell carcinoma. Mild erosive changes involving the left cochlear promontory. No lymphadenopathy. 10 point Review of Systems was normal [...] ??? Diarrhea R19.7 ??? Viral warts B07.9 Current Outpatient Medications on File Prior to Visit Medication Sig Dispense Refill ??? tamsulosin (Flomax) 0.4 mg Capsule Take 0.4 mg by mouth daily. ??? FLUoxetine (PROzac) 10 mg Capsule Take 10 mg by mouth daily. ??? [DISCONTINUED] loperamide (IMODIUM A-D) 2 mg Tablet Take by mouth daily. Maximum 16 mg in 24 hours ??? atorvastatin (LIPITOR) 20 mg Tablet ??? dorzolamide-timolol (COSOPT) 22.3-6.8 mg/mL Drops ??? rabeprazole (ACIPHEX) 20 mg tablet Take 1 tablet by mouth 2 times daily. 30 tablet 12 ??? [DISCONTINUED] dicyclomine (BENTYL) 10 mg capsule Take 1 capsule by mouth 3 times daily (with meals). (Patient not taking: Reported on 02/23/2021) 270 capsule 3 ??? [DISCONTINUED] atenolol (TENORMIN) 25 mg tablet Take 25 mg by mouth daily. ??? [DISCONTINUED] Brimonidine-Timolol (COMBIGAN) 0.2-0.5 % Drop Place 1 drop into both eyes 2 times daily. ??? [DISCONTINUED] ALPRAZolam (XANAX) 0.25 mg tablet Take 0.25 mg by mouth as needed. ??? [DISCONTINUED] pravastatin (PRAVACHOL) 20 mg tablet Take 40 mg by mouth daily. ??? [DISCONTINUED] FLUoxetine (PROZAC WEEKLY) [address] capsule Take 90 mg by mouth. Every 10 days Current Facility-Administered Medications on File Prior to Visit Medication Dose Route Frequency Provider Last Rate Last Admin ??? [COMPLETED] iohexoL (Omnipaque) (350 mg/mL) injection solution 0-200 mL 0- 200 mL Intravenous Once PRN Odette Valentin MD 110 mL at 02/23/21 0822 Allergies: Patient has no known allergies. Surgical History: Past Surgical History: Procedure Laterality Date ??? PRO COLONOSCOPY, BIOPSY 10/09/2012 COLONOSCOPY FLEXIBLE, WITH BX performed by Xiang Owen MD at [facility] ENDOSCOPY ??? PRO UPPER GI ENDOSCOPY, BIOPSY 03/20/2011 UPPER GASTROINTESTINAL ENDOSCOPY,WITH BIOPSY SINGLE OR MULTIPLE performed by JORDAN RAMOS at [facility] ENDOSCOPY Bilateral tympanomastoidectomy T&A Family and Social History Family History: No family history on file. Social History: Lives in [place] [address] Social History Socioeconomic History ??? Marital status: Spouse name: Not on file ??? Number of children: Not on file ??? Years of education: Not on file ??? Highest education level: Not on file Occupational History ??? Not on file Tobacco Use ??? Smoking status: Never Smoker ??? Smokeless tobacco: Never Used Substance and Sexual Activity ??? Alcohol use: No ??? Drug use: Yes Types: Benzodiazapines ??? Sexual activity: Not on file Other Topics Concern ??? Not on file Social History Narrative ??? Not on file Social Determinants of Health Financial Resource Strain: ??? Difficulty of Paying Living Expenses: Not on file Food Insecurity: ??? Worried About Running Out of Food in the Last Year: Not on file ??? Ran Out of Food in the Last Year: Not on file Transportation Needs: ??? Lack of Transportation (Medical): Not on file ??? Lack of Transportation (Non-Medical): Not on file Physical Activity: ??? Days of Exercise per Week: Not on file ??? Minutes of Exercise per Session: Not on file Housing Stability: ??? Unable to Pay for Housing in the Last Year: Not on file ??? Number of Places Lived in the Last Year: Not on file ??? Unstable Housing in the Last Year: Not on file Physical Exam Temperature: Heart Rate: Blood Pressure: Respiratory Rate: SpO2: General: Alert and oriented. No acute distress. Head and Face: Head is normocephalic, atraumatic. Facial resting tone symmetric. Eyes: Conjugate gaze, ocular motility intact bilaterally. No spontaneous or gaze evoked nystagmus. Neurologic: Cranial Nerves II-XII grossly intact and symmetric. Ears: External ears without deformity. See documentation of otomicroscopy below. Tuning forks: Bell lateralizes left; AC>BC right and AC=BC left. Nose: External nose is midline without deformity or lesion. Moderate NSD. Normal turbinates. Oral: There are no visible or palpable buccal, gingival, lingual, or palatal lesions. The floor of mouth is soft and flat. Oropharynx: Normal exam of the tonsils, tonsillar fossa, soft palate, and posterior pharynx. Salivary: Normal exam of the parotid and submandibular glands. Hem/Lymph/Imm: Neck supple without cervical mass or lymphadenopathy. Skin: Skin survey of the head and neck is without concerning lesion. MSK: Normal neck range of motion. No trismus. Resp: Breathing comfortably without stridor or retractions. Normal respirations. CV: Normal carotid pulses. Psych: Normal mood and affect. Labs and Imaging Significant lab values are as follows: Outside slide(s) labeled [id number], collection date 02/01/2021. Left mastoid bowl, debridement/curetting: ??- Invasive squamous cell carcinoma, keratinizing, well-moderately ? differentiated. I reviewed the following imaging studies: CT NECK SOFT TISSUE W CONTRAST, CT TEMPORAL BONE WO CONTRAST 02/23/2021 CLINICAL HISTORY: Head/neck cancer, staging h/o chronic ear s/p canal wall down tympanomastoidectomy with chronic ulceration left mastoid bowl with bx c/w squamous cell carcinoma ?? TECHNIQUE: CT neck performed after the intravenous administration of contrast. Administered 110.0 ml of OMNIPAQUE 350.00 mg/ml. ?? COMPARISON: CT temporal bones dated 04/19/2009. ?? FINDINGS: CT temporal bone: ?? Right temporal bone: Tympanomastoidectomy changes are identified with fat packing partially filling the mastoid cavity. Focal osseous dehiscence measuring 3 mm in width involves the right lateral sigmoid plate. No associated soft tissue mass. This finding is likely chronic in nature. ?? Middle ear ossicles are absent. Thickening of the retracted tympanic membrane is noted. Tegmen tympani is intact. Normal appearance of the inner ear structures. ?? Left temporal bone: Tympanomastoidectomy changes are identified with nonspecific soft tissue material filling the obliterated middle ear cavity. Mild demineralization involves the cochlear promontory. The tegmen tympani is intact as is the floor of the middle ear cavity. Normal course of the facial nerve canal. Normally formed inner ear structures. ?? CT neck: ?? No masses or lymphadenopathy identified. No masses along the visualized upper aerodigestive tract. Bilateral parotid and submandibular glands are normal as is the thyroid gland. Normal appearance of the stylomastoid foramina. ?? Paranasal sinuses are clear as are the lung apices. Mild cervical degenerative change. ? IMPRESSION Bilateral tympanomastoidectomy changes with nonspecific soft tissue attenuation filling the obliterated left middle ear cavity representing biopsy-proven squamous cell carcinoma. ?? Mild erosive changes involving the left cochlear promontory. ?? No lymphadenopathy. Procedures Ears examined and cleaned with aid of binocular microscopy. Right Ear: Auricle normal. Well healed postauricular scar. Widened meatus. Mastoid cavity without significant debris. Sinodural angle clear. Epitympanum clear. Facial ridge adequately lowered. Drum intact. Middle ear appears clear. No cholesteatoma. Left Ear: Auricle normal. Well healed postauricular scar. Widened meatus. Mastoid cavity debrided of some dry crusting. Sinodural angle clear. Epitympanum clear. Facial ridge adequately lowered. Remnant drum retracted. Region of inferior drum with focus of granulation which was suctioned clear. Region of drum just inferior to oval window niche into hypotympanum thickened with fine nodular appearance. Contracted middle ear space and middle ear not well visualized. No cholesteatoma. ASSESSMENT & RECOMMENDATIONS Suman Warner is a 65 y.o. male with history of HTN, HPL, SARITA, GERD, glaucoma and anxiety with history of chronic ear disease status post bilateral chronic ear surgeries with longstanding modified radical mastoid cavity on the left. Patient has a very long history of periodic otorrhea on the left, although this became more persistent since this past spring. Persistent otorrhea and focal granulation evident on exam was refractory to extended medical management with ototopical therapies. Thisultimately led to biopsy with pathology findings consistent with invasive well/moderately differentiated squamous cell carcinoma. Examination findings, audiometric testing results and imaging findings were reviewed with the patient today. Based on exam and imaging findings, we discussed recommended surgical intervention. Today, we specifically discussed recommended secondary excisional biopsies which will further guide management. Patient in agreement, and we discussed that we would like to proceed with surgical scheduling as soon as possible. I discussed risks specific to this surgery including risks of bleeding, pain, infection, taste disturbance, facial paralysis, vertigo, total hearing loss, perforation, anesthetic risks, as well as likelihood of need for further surgery. We did discuss the potential recommendation for subtotal temporal bone resection with total petrosectomy, to include labyrinthectomy / cochleectomy, as well as concomitant parotidectomy and selectiveneck dissection. In such a scenario, we discussed the potential for planned local / regional flap with ear overclosure in anticipation of possible adjuvant radiation therapy pending pathology findings. The implications of such surgery with respect to hearing and balance were also briefly reviewed. Patient verbally expressed understanding and was in agreement with the plan as outlined above. Our contact information was provided should any significant questions, concerns or problems arise prior to planned surgery. Thank you for this interesting consultation and for allowing us to participate in this patient's care. We will keep you posted on his progress moving forward. 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
--- OUTSIDE RECORDS SUMMARY | 2024-02-10 15:18 | XMS_ITS | Encounter Summary ---
[place] [address] Care Team Providers Care Auctioneer Automobile Name Role Phone Lawson Hankins MD Primary Care Provider [phone] Reason for Visit * Reason Comments Follow-up Encounter Details Date Type Department Care Team (Late st Contact Info) Description 02/20/2016 9:30 AM EDT Office Visit Dermatology at [place] [address] [place] [phone] Enoc Vázquez MD [address] [facility] [place] [address] Viral warts, unspecified type Social History Tobacco Use Types [...] Progress Notes * Enoc Vázquez MD - 02/20/2016 9:30 AM EDT PROBLEMS: 1. Resolved inflamed tag, right inner thigh. 2. Left index finger nail changes. 3. Verruca palmar base of right fifth finger. Suman follows up today and states that in November he had an inflamed lesion on his inner thigh. It sound like it was a tag. It desquamated and has fallen off. I have reassured him about this. I doubt that it will recur. He does, however, have a nail groove that is new over the last 6 months or so on his left index finger. Also he has had a recurrence of the wart on the base of his left palmar fifth finger. PHYSICAL EXAMINATION: Confirms a hyperkeratotic papule on the palmar base of the left 5th finger. He has a longitudinal groove, about a millimeter wide along the lateral nail plate of the left index finger. There appears to be a verrucous papule or a subungual fibroma that has developed on the proximal nail fold. ASSESSMENT AND PLAN: 1. Verruca, right fifth finger, palmar base of finger. a. LN2 x3 applied to the site. 2. Tag, right inner thigh. a. Not visualized today. b. Apparently resolved. c. Patient reassured. 3. Longitudinal groove, left second index finger. a. Appears to be triggered, having been caused by either a wart or subungual fibroma. b. I have counseled watchful waiting at this time, reassured about the benign appearance of this. c. Reassured that I do not expect it will lead to fragmenting of that affected edge of the nail plate. Should it grow, or become tender, or symptomatic, I would refer for biopsy of this. CC: Lawson Hankins MD documented in this encounter Plan of Treatment Upcoming Encounters Date Type Department Care Team (Late st Contact Info) Description 04/29/2024 11:00 AM EST Office Visit Radiation Oncology at [address] [phone] Tyrese Fitzgerald MD [facility] [place] [address] documented as of this encounter Visit Diagnoses Diagnosis Viral warts, unspecified type documented in this encounter Care Teams Auctioneer Automobile Relationship Specialty Start Date End Date Lawson Hankins MD [facility] [address] [place] [address] PCP - General 05/11/14 09/24/16 documented as of this encounter
--- OUTSIDE RECORDS SUMMARY | 2024-02-10 15:18 | XMS_ITS | Encounter Summary ---
Author Organization [facility] [place] [address] Care Team Providers Care Mental Health Aides Teacher Name Role Phone Ilya Medina MD Primary Care Provider [phone] Encounter Details Date Type Department Care Team (Late st Contact Info) Description 05/10/2021 Patient Outreach H[place]ology [place] [address] Estefany Quiñones RN Social History Tobacco Use [...] Progress Notes * Estefany Quiñones RN - 05/10/2021 12:26 PM EST Suman reached out to me yesterday with concerns regarding finances. Returned call to Suman today. Suman states that in May he will become eligible for Medicare and he believes that most of hishealthcare costs will be covered between Medicare and his supplement. However, he is currently experiencing overwhelming medical bills even after his insurance payments. He would like to know if there are any options for financial assistance or grants to help pay for what he currently owes. Recommend that I have our Wire Tinner or Community Healthcare Specialist reach out to him regarding some options to help alleviate financial toxicity of cancer work-up and treatment. Suman in agreement. Suman informs me that he had to cancel his dental appointment scheduled for 05/04/21 due to the fact that he had his PET scan scheduled for the same day. He is open to rescheduling if needed; his next scheduled appointment is not until November. He states that he already dropped off the pre-radiation dental evaluation form to his dentist, Dr. Price. Suman permits me to contact Dr. Price at [phone] to determine if clearance is granted and form is faxed. Placed call to Dr. Price's office and spoke to Edith. Dr. Price and his payroll and benefits assistant are currently onvacation. She will alert Dr. Price upon his return next week. Took my direct contact information tocall me with plan of care. Will contact Dr. Price's office if I do not hear from him mid-to late- next week. documented in this encounter Plan of Treatment Upcoming Encounters Date Type Department Care Team (Late st Contact Info) Description 04/29/2024 11:00 AM EST Office Visit Radiation Oncology at [address] [phone] Tyrese Fitzgerald MD [facility] [address] documented as of this encounter Visit Diagnoses Not on filedocumented in this encounter Care Teams Mental Health Aides Teacher Relationship 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
--- OUTSIDE RECORDS SUMMARY | 2024-02-10 15:18 | XMS_ITS | Encounter Summary ---
[place] [address] Care Team Providers Care Pot Room Supervisor Name Role Phone Ilya Medina MD Primary Care Provider [phone] Encounter Details Date Type Department Care Team (Late Contact Info) Description 03/01/2021 Telephone [place] [phone] Nga Winter RN Social History Tobacco Use [...] Encounter - Nga Winter RN - 03/01/2021 12:28 PM EDT MTCB re:a part of the procedure Dr. Hernández requested has been denied. VM left requesting more information regarding denial. Call back number left. documented in this encounter Plan of Treatment Upcoming Encounters Date Type Department Care Team (Late Contact Info) Description 04/29/2024 11:00 AM EST Office Visit Radiation Oncology at [address] [phone] Tyrese Fitzgerald MD [facility] [place] [address] documented as of this encounter Visit Diagnoses Not on filedocumented in this encounter Care Teams Pot Room Supervisor Relationship 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
--- OUTSIDE RECORDS SUMMARY | 2024-02-10 15:18 | XMS_ITS | Encounter Summary ---
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, except mandible Procedures NM PET CT Standard Plus Head and Neck Jayne Darby MD [facility] [place] [address] [place] [address] Referral ID Status Reason Start Date Expiration Date V isits Requested Visits Authorized [id number] Closed Specialty Service Requested 05/01/2021 10/28/2021 1 1 Encounter Details Date Type Department Care Team (Latest Contact Info) Description 04/20/2021 Multidisciplinary Ca re [place] [phone] Jayne Darby MD [facility] [place] [address] Malignant neoplasm of bones of [...] Progress Notes * Jayne Darby MD - 04/20/2021 6:09 AM EST Images from the original note were not included. 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 male who presents with SCCa ofthe LEFT ear. Reports constant otorrhea on the left since Spring 2020. Associated symptoms include diminished hearing. Denies fluctuation in hearing, facial weakness/facial spasm, tinnitus, dizziness/vertigo. Prior history of chronic middle ear disease with otologic surgical history pertinent for Left modified radical CWD tymp/mastoid in 1968 ([facility]) for cholesteatoma, Left revision tymp/mastoid-OCR 20 years ago, and Right modified radial CWD tymp/mastoid [place] [address] Linda. Pathology pertinent for SCCa diagnosed by Dr. Trinidad. PMH pertinent for HTN, HPL, SARITA, GERD, glaucoma, and a nxiety. Pathology DIAGNOSIS A - Left ear hypotympanum, [...] (in-situ and invasive) well to moderately differentiated. Imaging CT temporal bone: Right temporal bone: [...] the lung apices. Mild cervical degenerative change. Tumor Board Recs Based on the scan and tumor, patient would likely need a surgical resection. Surgical approach would be likely cervical exposure with vascular control followed by subtotal temporal bone resection with labyrinthectomy, cochlectomy, mobilization of facial nerve, followed by superficial parotidectomy, neck dissection, and flap coverage. Adjuvant radiation might be indicated based onthe tumor stage. No clear role for neoadjuvant treatment. 1. Will plan to discuss surgical resection (to be coordinated with Dr. Hernández and Dr. Hoang) withpatient. Booking order placed. 2. Complete metastatic work-up with PET Scan * (Based on past studies and the [...] EST Office Visit Radiation Oncology at [address] [phone] Tyrese Fitzgerald MD [facility] DR RADI[place] [address] documented as of this encounter Results * NM PET CT [...] who have questions please contact the health live in caregiver that requested your imaging first. ? 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 Evaluate for staging mets and occult mets in neck/parotid. TECHNIQUE: Following IV injection of 36-ifrxwd-3-deoxyglucose (FDG) a standard uptake of approximately 60 [...] Note Thong Rubio MD - 05/04/2021 EXAMINATION: GA PET CT STANDARD PLUS HEAD AND NECK CLINICAL HISTORY: Head/neck cancer, staging History of SCCa in the LEFT Middle Ear. Evaluate for staging mets andoccult mets in neck/parotid. TECHNIQUE: Following IV injection of 72-hrojpj-2-deoxyglucose (FDG) astandard uptake of approximately 60 minutes, [...] patients who have questions please contactthe health live in caregiver that requested your imaging first. 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
--- OUTSIDE RECORDS SUMMARY | 2024-02-10 15:18 | XMS_ITS | Encounter Summary ---
Author Organization [facility] [place] [address] Care Team Providers Care Ice Cream Server Name Role Phone Ilya Medina MD Primary Care Provider [phone] Encounter Details Date Type Department Care Team (Late st Contact Info) Description 02/23/2021 9:30 AM EDT Office Visit Audiology at [address] [phone] Marci Rodrigues AUD [facility] [place] [address] Mixed hearing loss, bilateral Social History Tobacco [...] Progress Notes * Marci Rodrigues AUD - 02/23/2021 9:30 AM EDT Suman Warner was seen for an audiologic evaluation. Please refer to the scanned audiogram in the electronic medical record for findings, impressions and recommendations. Elena [place] [address] [phone] (fax) documented in this encounter Plan of Treatment Upcoming Encounters Date Type Department Care Team (Late st Contact Info) Description 04/29/2024 11:00 AM EST Office Visit Radiation Oncology at [address] [phone] Tyrese Fitzgerald MD [facility] [place] [address] documented as of this encounter Procedures Procedure Name Priority Date/Time Associated Diagnosis Comments COMPREHENSIVE HEARING TEST Routine 02/23/2021 9:29 AM EDT documented in this encounter Results * Comprehensive hearing test (02/23/2021 9:29 AM EDT) 02/23/2021 9:29 AM EDT Narrative [facility] - 02/23/2021 9:29 AM EDT - ENT to follow - Verification /reprogramming of aids with today's audiogram. ?? Procedure Note Unknown - 02/23/2021 - ENT to follow - Verification /reprogramming of aids with today's audiogram. Unknown AUDIOLOGY SERVICES O RDERABLES [facility] documented in this encounter Visit Diagnoses Diagnosis Mixed hearing loss, bilateral documented in this encounter Care Teams Ice Cream Server Relationship 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
--- OUTSIDE RECORDS SUMMARY | 2024-02-10 15:18 | XMS_ITS | Encounter Summary ---
Author Organization Formerly [facility] Address [facility] Alyssia [place] [address] Care Team Providers Care Building Mechanic Name Role Phone Ilya Medina MD Primary Care Provider [phone] Reason for Visit * Auth/Cert Specialty Diagnoses / Procedures Referred By Contac t Referred To Contact Diagnoses squamous cell carcinoma, left ear Procedures PRO TYMPANOPLASTY PRO UNLISTED MIDDLE EAR PRO MICROSURG TECHNIQUES, REQ OPER MICROSCOPE PRG SOMATOSENSORY TEST, ANY/ALL PER. NERVES, TRUNK OR HEAD TYMPANOPLASTY (WRVU 10.05) MIDDLE EAR BIOPSY (WRVU *) MICROSCOPE USE (WRVU 3.46) FACIAL NERVE MONITORING, SETUP PERIPHERAL (WRVU 0.54) MODIFIER IRIDEX LASER MODIFIER,ENT MODERATE Referral ID Status Reason Start Date Expiration Date Visits Re quested Visits Authorized [id number] 1 1 Encounter Details Date Type Department Care Team (Late st Contact Info) Description 03/31/2021 8:30 AM EST - 03/31/2021 12:15 PM EST [place] [address] Apolinar Hernández MD [facility] [place] [address] TYMPANOPLASTY (WRVU 10.05) Social History Tobacco Use Types Packs/Day Years [...] Sign Reading Time Taken Comments Blood Pressure 149/103 03/31/2021 12:15 PM EST Pulse 63 03/31/2021 12:15 PM EST Temperature 36 ??C (96.8 ??F) 03/31/2021 11: 22 AM EST Respiratory Rate 12 03/31/2021 12:1 5 PM EST Oxygen Saturation 96% 03/31/2021 12: 15 PM EST Inhaled Oxygen Concentration - - Weight 115.6 kg (254 lb 13.6 oz) 03/31/2021 7:19 AM EST Height 177.8 cm (5' 10) 03/31/2021 7:19 AM EST Body Mass Index 36.57 03/31/2021 7:19 AM EST documented in this encounter Discharge Instructions * Patient Instructions* Jayne Darby MD - 03/31/2021 11:38 AM EST POSTOPERATIVE INSTRUCTIONS FOR PATIENTS UNDERGOING CHRONIC EAR, MIDDLE EAR OR STAPES SURGERY 1. DO NOT blow you nose for 3 weeks following surgery. If you sneeze or cough do so with your mouthopen. 2. Avoid any heavy lifting (over 10 lbs.), straining, or bending for three weeks following surgery. 3. Keep your head elevated as much as possible. Sleep and rest on two or three pillows if possible. 4. Do no get water in you ear. If showering or washing your hair place a piece of cotton coated in Vaseline in the ear canal to seal it. If there is a separate incision, keep this dry until your first postoperative visit. 5. If you wear glasses, either remove the arm on the operated side or make certain that it does notrest on the incision behind your ear for one week. 6. Beginning one day after surgery try to leave the cotton out of your ear as much as possible unless there is significant drainage. 7. Some of the drainage from your ear canal may occur after surgery. If there is a separate incision some drainage may occur from this area also. If the drainage is profuse or develops a foul odor, call the Department of Otolaryngology - Head and Neck Surgery. 8. Popping sounds, a plugged sensation, ringing or fluctuating hearing may be noticed in the ear during the healing. 9. Avoid travel by air for three weeks following surgery. 10. If you should notice any swelling, redness, or excessive pain, please call the Department of Otolaryngology - Head and Neck Surgery. 11. Some dizziness may occur after surgery. If it becomes severe or is associated with nausea or vomiting, call the Department of Otolaryngology - Head and Neck Surgery. 12. You should be seen for follow-up evaluation 7-10 days after surgery, unless otherwise stated byyour surgeon. Please call the Department of Otolaryngology - Head and Neck Surgery for an appointment if one has not been scheduled for you in advance. 13. Should any problems or questions arise, please call the Department of Otolaryngology - Head andNeck Surgery (ENT Department). Contact: -You can reach the ENT clinic at [phone] for appointment questions. -The ENT triage nurse is available at [phone] -For urgent issues during evenings and weekends the ENT resident sfdc consultant can be reached through [facility] chief operator hydroformer at [phone] Follow Up: You will need to follow up with ENT in 7-10 days. This appointment has been requested. You will be notified once it is scheduled, if you do not already see it below. If you do not hear from us in a timely manner, please call [phone] to receive your date and time. Currently Scheduled Appointments: Future Appointments and Orders Future Appointments and Orders Future Appointments Provider Department Dept Phone 04/10/2021 10:40 AM Nash Alberts PA [place] [facility] [place] at: Operations Support Representative Area [phone] 05/15/2021 3:20 PM Apolinar Hernández MD [place] [facility] [place] at: Operations Support Representative Area [phone] 06/19/2021 12:45 PM Pina Snowden, TERRENCE; AUDIOLOGY, [facility] Audiology at [facility] [place]rive at: Operations Support Representative Area [phone] 06/19/2021 1:40 PM Apolinar Hernández MD Otolaryngology at [facility] Arrive at: Operations Support Representative Area [phone] documented in this encounter Medications at Time [...] mg Capsule Take by mouth. 01/05/2021 09/20/2021 ciprofloxacin-dexametha sone (Ciprodex) 0.3-0.1 % Drops, Suspension Place 5 drops in ear(s) 2 times daily. Start this tomorrow after surgery on the operated ear and use until your follow-up. 10 mL 03/31/2021 04/10/2021 documented as of this encounter Progress Notes * Cayla Irizarry RN - 03/31/2021 1:32 PM EST Patient alert and oriented, vital signs stable. Reviewed discharge instructions; patient and pt's verbalized understanding. Copy of instruction sheet with contact numbers for questions/concerns.Pain assessment documented. Patient escorted out of department via wheelchair with RN. * Cayla Irizarry RN - 03/31/2021 12:55 PM ESTSummary: SDP Nurse's Note 1130 Dr Hernández at bedside to evaluate pt, pt remains sleeping. 1215 Resident at bedside, pt with symmetrical smile, no facial droop noted. Denies pain except sorethroat. 1256 Dr. Hernández at bedside, pt neurologically intact, pt ok to go home. BP at baseline, f/u with primary care re BP documented in this encounter H&P Notes * Apolinar Hernández MD - 03/31/2021 7:21 AM EST 24-Hour Pre-Operative H&P Update Patient was seen in the Pre-Operative Area today. I have reviewed, and agree with, the clinical history, physical examination findings, impression, and plan, as detailed in the original H&P Note. The patient was cleared for surgery. Tympanoplasty with biopsies Interval History: The patient's history and physical exam have been reviewed and completed. There has been no interval change from that of the pre-operative history and physical exam done within the last 30 days. Medications: Outpatient Medications Marked as Taking for the 03/31/21 encounter (Hospital Encounter) Medication Sig Dispense Refill ??? tamsulosin (Flomax) 0.4 mg Capsule Take 0.4 mg by mouth daily. ??? FLUoxetine (PROzac) 10 mg Capsule Take 10 mg by mouth daily. ??? atorvastatin (LIPITOR) 20 mg Tablet ??? dorzolamide-timolol (COSOPT) 22.3-6.8 mg/mL Drops ??? rabeprazole (ACIPHEX) 20 mg tablet Take 1 tablet by mouth 2 times daily. 30 tablet 12 Allergies: Patient has no known allergies. Impression: Suman is a 65 y.o. 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 Scheduled for revision t ympanomastoidectomy with biopsies for staging purposes. Plan: -ready to proceed with the planned surgical procedure, revision tympanomastoidectomy with biopsies. Apolinar Hernández MD Otology and Neurotology Otolaryngology - Head & Neck Surgery Pgr: [phone] documented in this encounter Miscellaneous Notes * Op Note - Apolinar Hernández MD - 03/31/2021 9:31 AM EST [facility] [place] Patient Name: Suman Warner : [id number] MR#: [id number] Case Date: 03/31/2021 Surgeon: Surgeon(s) and Role: * Apolinar Hernández MD - Primary * Jayne Darby MD - Resident Preoperative diagnosis: squamous cell carcinoma, left ear Postoperative diagnosis: squamous cell carcinoma, left ear Procedure(s) (LRB): TYMPANOPLASTY (WRVU 10.05) (Left) MICROSCOPE USE (WRVU 3.46) (Left) FACIAL NERVE MONITORING, SETUP PERIPHERAL (WRVU 0.54) (N/A) MODIFIER IRIDEX LASER (N/A) MODIFIER,ENT MODERATE (N/A) Anesthesia: General Estimated Blood Loss: 5 mL Specimens removed during surgery: Multiple biopsies taken and sent in saline for further histopathologic review. Drains: * No LDAs found * Surgical Closure: Primary Closure - skin incision is completely closed without any wires, jarad, drains or other devices Disposition: awakened from anesthesia, extubated and taken to the recovery room in a stable condition, having suffered no apparent untoward event. Condition: doing well without problems (Please see the Surgical Encounter Summary for any Implant and Specimen details pertinent to this patient.) HPI/Surgical Indications: Patient is a 65 y.o. male with a history of chronic ear disease left ear with distant past history of modified radical tympanomastoidectomy who has contended with longstanding recurrent otorrhea/infections in this ear which were recently refractory to medical management. This led to outside biopsy of focus of granulation at level of remnant drum with findings consistent with squamous cell carcinoma. Scheduled for revision tympanomastoidectomy with biopsies for mapping and staging purposes. ?? Procedure Description: The patient was taken to the main [...] Monitoring electrodes were then placed in the orbicularis oculi and orbicularis libby muscles. Ground and stimulating electrodes were then positioned. All electrodes were then connected to the nerve monitor. A tap test was performed to confirm correct functioning. A standard shave and prep of the left ear was then performed. The patient was then prepped and draped in the usual sterile fashion. The operating microscope was brought into the field and used for the remainder of the case for illumination and magnification. The mastoid cavity was inspected and debrided of scant dry debris. The posterior cavity, sinodural angle and epitympanum regions appeared healthy. The remnant drum was retracted and somewhat mottled with a fine nodular appearance. There was deep retraction into the hypotympanum. The drum was otherwise thickened and the middle ear space not well visualized. There was no appreciable granulation at the lateral aspect of the drum. The drum was debrided of some diffuse desquamated debris on its lateral surface. The facial nerve was stimulated in the tympanic segment to verify expected position and integrity of our nerve monitoring system. Approximately 0.5 cc of a solution containing 1% lidocaine with 1:100K U epinephrine was used to achieve local subcutaneous anesthesia in the regions of planned incisions. A sickle knife was used to create a vertical incision from the 6 o'clock position inferiorly and carried out laterally. A tympanoplasty knife was then used to create a horizontal incision in the posterior aspect of the facial ridge and carried superiorly to the level of the lateral semicircular canal. Dissection of the medially based tympanomeatal flap proceeded down to the level of the annulus. Themedial inferior portion of the flap and posterior inferior drum was significantly thickened. With the tympanomeatal flap reflected forward, the middle ear was then entered under the annulus in the posterior inferior quadrant. There was evidence of granulation, possible tumor and likely necrotic tissue filling the hypotympanum. Numerous biopsies from the middle ear within the hypotympanum were obtained. The posterior inferior aspect of the drum and associated thickened portion of the tympanomeatal flap was sharply taken as a specimen. A tympanoplasty knife was then used to create an incision in in the medial anterior cavity wall. Dissection proceeded down to the anterior mesotympanum to expose the region of the protympanum. The anterior inferior drum and middle ear ear tissue at this location were taken as specimens. Further soft tissue overriding the promontory was taken as a separate specimen, and an additional specimen was taken involving the remnant anterior superior drum with associated middle ear soft tissue. The cochleaform process and oval window niche were not further exposed as the remnant drum and underlying soft tissue appeared adherent to the tympanic segment of the nerve just superior to this, and by the fact that findings or further biopsies in this region would not be expected to alter future management. The chorda tympani nerve was previously sacrificed. Malleus and incus absent. Stapes not visualized. Spontaneous hemostasis was ensured. The facial nerve was again stimulated to ensure integrity. The cavity was then completely packed with Cipro-HC soaked gelfoam packing. Bacitracin coated cotton wasapplied at the meatus. The case was subsequently terminated. All sponge and instrument counts were correct. There were no noted complications. The patient appeared to tolerate the procedure well. The patient was awakened from general anesthesia without incident returned to recovery room in stable condition. Of note, in recovery, the patient was noted to have normal and symmetric facial nerve function. Infection Bundle used? No Attestation: Case Date: 03/31/2021 I was present and I participated during the entire procedure (does not need to include opening and closing). Apolinar Hernández MD 03/31/2021 documented in this encounter Plan of Treatment Upcoming Encounters Date Type Department Care Team (Late st Contact Info) Description 04/29/2024 11:00 AM EST Office Visit Radiation Oncology at [address] [phone] Tyrese Fitzgerald MD [facility] [place] [address] documented as of this encounter Procedures Procedure Name Priority Date/Time Associated Diagnosis Comments SPECIMEN TO PATHOLOGY Routine 03/31/2021 10:50 AM EST SPECIMEN TO PATHOLOGY Routine 03/31/2021 10:50 AM EST SPECIMEN TO PATHOLOGY Routine 03/31/2021 10:42 AM EST SPECIMEN TO PATHOLOGY Routine 03/31/2021 10:34 AM EST SURGICAL PATHOLOGY REPORT Routine 03/31/2021 10:14 AM EST SPECIMEN TO PATHOLOGY Routine 03/31/2021 10:14 AM EST MODIFIER,ENT MODERATE Yes 03/31/2021 8:41 AM EST Cancer of temporal bone MODIFIER IRIDEX LASER Yes 03/31/2021 8:41 AM EST Cancer of temporal bone Somatosensory Test, Any/All Per. Nerves, Trunk Or Head ([id number]) Yes 03/31/2021 8:41 AM EST Cancer of temporal bone Microsurg Techniques, Req Oper Microscope ([id number]) Yes 03/31/2021 8:41 AM EST Cancer of temporal bone Tympanoplasty ([id number]) Yes 03/31/2021 8:41 AM EST Cancer of temporal bone FACIAL NERVE MONITORING, SETUP Routine 03/31/2021 6:48 AM EST Cancer of temporal bone MICROSCOPE USE Routine 03/31/2021 6:48 AM EST Cancer of temporal bone TYMPANOPLASTY Routine 03/31/2021 6:48 AM EST Cancer of temporal bone documented in this encounter Results * Specimen to Pathology (03/31/2021 10:50 AM EST) AP Specimen 03/31/2021 10:5 0 AM EST 03/31/2021 10:50 AM EST Narrative [facility] - 03/31/2021 10:50 AM EST Specimen requisition ordered. ??Separate Pathology report to follow Apolinar Hernández MD PATHOLOGY/CYTOLOGY O ANA LUISA Performing Organization Address City/[facility]/[place] [address] * Specimen to Pathology (03/31/2021 10:50 AM EST) AP Specimen 03/31/2021 10:5 0 AM EST 03/31/2021 10:50 AM EST Narrative [facility] - 03/31/2021 10:50 AM EST Specimen requisition ordered. ??Separate Pathology report to follow Apolinar Hernández MD PATHOLOGY/CYTOLOGY O ANA LUISA Performing Organization Address City/[facility]/ZIP Co de Phone Number [address] [place] [address] * Specimen to Pathology (03/31/2021 10:42 AM EST) AP Specimen 03/31/2021 10:4 2 AM EST 03/31/2021 10:42 AM EST Narrative [facility] - 03/31/2021 10:42 AM EST Specimen requisition ordered. ??Separate Pathology report to follow Apolinar Hernández MD PATHOLOGY/CYTOLOGY O ANA LUISA Performing Organization Address [facility] [place] [address] * Specimen to Pathology (03/31/2021 10:34 AM EST) AP Specimen 03/31/2021 10:3 4 AM EST 03/31/2021 10:34 AM EST Narrative [facility] - 03/31/2021 10:34 AM EST Specimen requisition ordered. ??Separate Pathology report to follow Apolinar Hernández MD PATHOLOGY/CYTOLOGY O ANA LUISA Performing Organization Address [facility] [place] [address] * Surgical Pathology Report (03/31/2021 10:14 AM EST) Pathologist [facility] Final Diagnosis [id number] ? Location: [facility]; [facility]; A The signing pathologist has (i) examined the relevant preparation(s) for the specimen(s) and (ii) rendered or confirmed the diagnosis(es). . ?Surgical Pathology DIAGNOSIS A - Left ear hypotympanum, biopsy - Squamous cell carcinoma (fragments),(in -situ and invasive) well to moderately differentiated. B - Left posterior inferior drum & skin flap, excision - Squamous cell carcinoma,(frag ments), well to moderately differentiated. The tumor ??appears to invade to a depth of 3-mm (greatest contiguous slide measure). C - Left anterior inferior drum & middle ear, biopsy - Squamous cell carcinoma (fragments), (in-situ and invasive) well to moderately differentiated. D - Left anterior drum & middle ear, biopsy - Squamous cell carcinoma (fragments), (in-situ and invasive) well to moderately differentiated. E - Left drum, over promontory, biopsy - Squamous cell carcinoma, (in-situ and invasive) well to moderately differentiated. Electronically signed by: ?Treasure Pierre DO Verified: ??04/10/2021 13:51 ??Pathologist Performed at: ??[facility] [place], [place], [place] ADDITIONAL STUDIES [facility] was reviewed. SPECIMEN(S) SUBMITTED A - LEFT ear hypotympanum, biopsy (1) B - LEFT posterior inferior drum & skin flap, excision (1) C - LEFT anterior inferior drum & middle ear, biopsy (1) D - LEFT anterior drum & middle ear, biopsy (1) E - LEFT drum over promontory, biopsy (1) CLINICAL INFORMATION Squamous cell carcinoma left ear SPECIMEN PROCESSING A - Labeled/Fixativ e: Left ear hypotympanum, saline. Quantity/Size: ??Four, ranging from 0.2-0.4 cm. Tissue Description: Soft, pink-white tissues. Sections/Proces sing: Submitted en toto ??in 1 cassette labeled A1. B - Labeled/Fixativ e: Left posterior inferior drum and skin flap, fresh. Quantity/Size: Single, 0.6 x 0.4 x 0.3 cm. Tissue Description: Soft, pink tissue with overlying white skin. Sections/Proces sing: Submitted en toto ??in 1 cassette labeled B1. . SPECIMEN PROCESSING C - Labeled/Fixativ e: Left anterior inferior drum and middle ear, saline. Quantity/Size: Three, ranging from 0.3-0.5 cm. Tissue Description: Soft, pink-red tissues. Sections/Proces sing: Submitted en toto ??in 1 cassette labeled C1. D - Labeled/Fixativ e: Left anterior drum and middle ear, saline. Quantity/Size: Two, 0.1 and 0.4 cm. Tissue Description: Soft, red tissues. Sections/Proces sing: Submitted en toto ??in 1 cassette labeled D1. E - Labeled/Fixativ e: Left drum over promontory, saline. Quantity/Size: Single, 0.5 cm. Tissue Description: Soft, pink-red tissue. Sections/Proces sing: Submitted en toto ??in 1 cassette labeled E1. ??sns 04/10/2021 1:51 PM EST [facility] SPECIMEN FROM SKIN / Unknown 03/31/2021 10:14 AM EST 03/31/2021 10:14 AM EST SPECIMEN FROM SKIN / Unknown 03/31/2021 10:14 AM EST 03/31/2021 10:14 AM EST SPECIMEN FROM SKIN / Unknown 03/31/2021 10:14 AM EST 03/31/2021 10:14 AM EST SPECIMEN FROM SKIN / Unknown 03/31/2021 10:14 AM EST 03/31/2021 10:14 AM EST SPECIMEN FROM SKIN / Unknown 03/31/2021 10:14 AM EST 03/31/2021 10:14 AM EST Apolinar Hernández MD PATHOLOGY/CYTOLOGY O ANA LUISA Performing Organization Address City/[facility] Co de Phone Number [facility] [place] [address] * Specimen to Pathology (03/31/2021 10:14 AM EST) AP Specimen 03/31/2021 10:1 4 AM EST 03/31/2021 10:14 AM EST Narrative [facility] - 03/31/2021 10:14 AM EST Specimen requisition ordered. 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, except mandible documented in this encounter Administered Medications Inactive Administered Medications - up to 3 most recent administrations Medication Order MAR Action Action Date Dose Rate Site bacitracin ointment ONCE PRN, Starting on Sat03/31/21 at 1114, Until Sat03/31/21 at 1600, Intra-Operative (Intra-Procedure) Given 03/31/2021 11:14 AM EST 1 Tube 19- Surgical Site ciprofloxacin-hydroc ortisone (Cipro HC Otic) 0.2-1 % otic suspension ONCE PRN, Starting on Sat03/31/21 at 1034, Until Sat03/31/21 at 1600, Intra-Operative (Intra-Procedure), Routine Given 03/31/2021 10:34 AM EST 1 Bottle 19- Surgical Site EPINEPHrine (Adrenalin) nasal solution ONCE PRN, Starting on Sat03/31/21 at 0946, Until Sat03/31/21 at 1600, Intra-Operative (Intra-Procedure), Routine Given 03/31/2021 9:46 AM EST 30 mLs 19- Surgical Site gelatin compressed (Gelfoam) sponge ONCE PRN, Starting on Sat03/31/21 at 0931, Until Sat03/31/21 at 1600, Intra-Operative (Intra-Procedure) Given 03/31/2021 9:31 AM EST 1 each 19- Surgical Site lactated ringers infusion 1,000 mL, at 100 mL/hr, Intravenous, CONTINUOUS, Starting on Sat03/31/21 at 0815, Until Sat03/31/21 at 1244, Day of Surgery (Day of Procedure) New Bag 03/31/2021 8:02 AM EST 1,000 mLs 100 mL/hr lidocaine-EPINEPHrin e (1% - 1:100,000) injection ONCE PRN, Starting on Sat03/31/21 at 0920, Until Sat03/31/21 at 1600, Intra-Operative (Intra-Procedure), Routine Given 03/31/2021 9:55 AM EST 0.5 mLs 19- Surgical Site Given 03/31/2021 9:20 AM EST 6 mLs 19 - Surgical Site documented in this encounter Active and Recently Administered Medications Times are shown in EST. Scheduled Medication Order 03/29/2021 03/30/2021 03/31/2021 ceFAZolin (Ancef) 2 g in dextrose 5% 100 mL infusion 2 g, Intravenous, ONCE, 1 dose, On Sat03/31/21 at 0745, Administer over 30 Minutes, Indication for (Active or Suspected): Prophylaxis 0745 (Due) Continuous Medication Order 03/29/2021 03/30/2021 03/31/2021 lactated ringers infusion (CANCELED) 1,000 mL, at 100 mL/hr, Intravenous, CONTINUOUS, Starting on Sat03/31/21 at 0815, Until Sat03/31/21 at 1244, Day of Surgery (Day of Procedure) 0802 ([facility] ider: Arlene Phan RN) PRN Medication Order 03/29/2021 03/30/2021 03/31/2021 bacitracin ointment (CANCELED) ONCE PRN, Starting on Sat03/31/21 at 1114, Until Sat03/31/21 at 1600, Intra-Operative (Intra-Procedure) 1114 (Given - Provid er: Apolinar Hernández MD) ciprofloxacin-hydrocortisone (Cipro HC Otic) 0.2-1 % otic suspension (CANCELED) ONCE PRN, Starting on Sat03/31/21 at 1034, Until Sat03/31/21 at 1600, Intra-Operative (Intra-Procedure), Routine 1034 (Given - Provid er: Apolinar Heránndez MD - Comment: used to soak gelfoam) EPINEPHrine (Adrenalin) nasal solution (CANCELED) ONCE PRN, Starting on Sat03/31/21 at 0946, Until Sat03/31/21 at 1600, Intra-Operative (Intra-Procedure), Routine 0946 (Given - Provid er: Apolinar Hernández MD - Comment: used to soak gelfoam) gelatin compressed (Gelfoam) sponge (CANCELED) ONCE PRN, Starting on Sat03/31/21 at 0931, Until Sat03/31/21 at 1600, Intra-Operative (Intra-Procedure) 0931 (Given - Provid er: Apolinar Hernández MD) lidocaine-EPINEPHrine (1% - 1:100,000) injection (CANCELED) ONCE PRN, Starting on Sat03/31/21 at 0920, Until Sat03/31/21 at 1600, Intra-Operative (Intra-Procedure), Routine 0920 (Given - Provid er: Apolinar Hernández MD)0955 (Given - Provider: Apolinar Hernández MD) documented in this encounter Care Teams Building Mechanic Relationship 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
--- OUTSIDE RECORDS SUMMARY | 2024-02-10 15:18 | XMS_ITS | Encounter Summary ---
Author Organization [facility] [place] [address] Care Team Providers Care Travel Pt Name Role Phone Ilya Medina MD Primary Care Provider [phone] Encounter Details Date Type Department Care Team (Late Contact Info) Description 02/09/2021 Orders [place] [address] Ailyn Farris RN Primary malignant neoplasm of temporal bone (Primary Dx) Social History Tobacco Use Types [...] EST Office Visit Radiation Oncology at [address] [address] Tyrese Fitzgerald MD [facility] [place] [address] documented as of this encounter Visit Diagnoses Diagnosis Primary malignant neoplasm of temporal bone- Primary documented in this encounter Care Teams Travel Pt Relationship 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
--- OUTSIDE RECORDS SUMMARY | 2024-02-10 15:18 | XMS_ITS | Encounter Summary ---
Author Organization [facility] [place] [address] Care Team Providers Care Metal Furniture Panel Coverer Name Role Phone Ilya Medina MD Primary Care Provider Encounter Details Date Type Department Care Team (Late st Contact Info) Description 04/20/2021 Notes [place] [address] Jayne Darby MD [facility] [place] [address] Social History Tobacco Use Types Packs/Day Years [...] AM EST Office Visit Radiation Oncology at [address] [phone] Tyrese Fitzgerald MD [facility] [place] [address] documented as of this encounter Visit Diagnoses Not on filedocumented in this encounter Care Teams Metal Furniture Panel Coverer Relationship 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
--- OUTSIDE RECORDS SUMMARY | 2024-02-10 15:18 | XMS_ITS | Encounter Summary ---
Author Organization [facility] Address [facility] [place] [address] Care Team Providers Care Skid Machine Operator Name Role Phone Ilay Medina MD Primary Care Provider [phone] Reason for Visit * Auth/Cert Specialty Diagnoses [...] Expiration Date Visits Re quested Visits Authorized [id number] 1 1 Encounter Details Date Type Department Care Team (Latest Contact Info) Description 03/31/2021 6:38 AM EST - 03/31/2021 1:33 PM [facility] Hospital En[place] [address] Apolinar Hernández MD [facility] [place] [address] Cancer of temporal bone Discharge Disposition: Home [...] Sign Reading Time Taken Comments Blood Pressure 155/104 03/31/2021 12:45 PM EST Pulse 68 03/31/2021 12:30 PM EST Temperature 36 ??C (96.8 ??F) 03/31/2021 11: 22 AM EST Respiratory Rate 13 03/31/2021 12:3 0 PM EST Oxygen Saturation 97% 03/31/2021 12: 45 PM EST Inhaled Oxygen Concentration - - [...] -You can reach the ENT clinic at [phone] for appointment questions. -The ENT triage nurse is available at [phone] -For urgent issues during evenings and weekends the ENT resident communications assistant can be reached through [facility] viner operator at [phone] Follow Up: You will need to follow up with ENT in 7-10 days. This appointment has been requested. You will be notified once it is scheduled, if you do not already see it below. If you do not hear from us in a timely manner, please call [phone] to receive your date and time. Currently Scheduled Appointments: Future Appointments and Orders Future Appointments and Orders Future Appointments Provider Department Dept Phone 04/10/2021 10:40 AM Nash Alberts PA Otolaryngology at [facility] Arrive at: [facility] [phone] 05/15/2021 3:20 PM Apolinar Hernández MD Otolaryngology at [facility] Arrive at: [facility] [phone] 06/19/2021 12:45 PM Pina Snowden, [place]; AUDIOLOGY, [facility] Audiology at [facility] Arrive at: [facility] [phone] 06/19/2021 1:40 PM Apolinar Hernández MD Otolaryngology at [facility] Arrive at: [facility] [phone] documented in this encounter Medications at Time [...] Hernández MD - 03/31/2021 9:31 AM EST [facility] Operative Note Patient Name: Suman Warner : [id number] MR#: [id number] Case Date: 03/31/2021 Surgeon: Surgeon(s) and Role: [...] EST Office Visit Radiation Oncology at [address] [phone] Tyrese Fitzgerald MD [facility] [place] [address] documented as of this encounter Procedures Procedure [...] Test, Any/All Per. Nerves, Trunk Or Head (07900) Yes 03/31/2021 8:41 AM EST Cancer of temporal bone Microsurg Techniques, Req Oper Microscope (02761) Yes 03/31/2021 8:41 AM EST Cancer of temporal bone Tympanoplasty (86201) Yes 03/31/2021 8:41 AM EST Cancer of [...] AM EST 03/31/2021 10:50 AM EST Narrative [facility] - 03/31/2021 10:50 AM EST Specimen requisition ordered. ??Separate Pathology report to follow Apolinar Hernández MD PATHOLOGY/CYTOLOGY O ANA LUISA Performing Organization Address City/[facility]/[place]IP [place] [address] * Specimen to Pathology (03/31/2021 10:50 AM EST) AP Specimen 03/31/2021 10:5 0 AM EST 03/31/2021 10:50 AM EST Narrative [facility] - 03/31/2021 10:50 AM EST Specimen requisition ordered. ??Separate Pathology report to follow Apolinar Hernández MD PATHOLOGY/CYTOLOGY O ANA LUISA Performing Organization Address City/[facility]/ZIP Co de Phone [place] [address] * Specimen to Pathology (03/31/2021 10:42 AM EST) AP Specimen 03/31/2021 10:4 2 AM EST 03/31/2021 10:42 AM EST Narrative [facility] - 03/31/2021 10:42 AM EST Specimen requisition ordered. ??Separate Pathology report to follow Apolinar Hernández MD PATHOLOGY/CYTOLOGY O ANA LUISA Performing Organization Address [facility] [place] [address] * Specimen to Pathology (03/31/2021 10:34 AM EST) AP Specimen 03/31/2021 10:3 4 AM EST 03/31/2021 10:34 AM EST Narrative [facility] - 03/31/2021 10:34 AM EST Specimen requisition ordered. ??Separate Pathology report to follow Apolinar Hernández MD PATHOLOGY/CYTOLOGY O A[facility] Performing Organization Address [facility] [place] [address] * Surgical Pathology Report (03/31/2021 10:14 AM EST) Pathologist [facility] Final Diagnosis [id number] ? Location: [facility]; [facility]; A The signing pathologist has (i) [...] DO Verified: ??04/10/2021 13:51 ??Pathologist Performed at: ??-[facility] Dept. of Pathology, [place], [place] ADDITIONAL STUDIES [facility] was reviewed. SPECIMEN(S) SUBMITTED A - LEFT [...] labeled E1. ??sns 04/10/2021 1:51 PM EST [facility] SPECIMEN FROM SKIN / Unknown [...] PATHOLOGY/CYTOLOGY O ANA LUISA Performing Organization Address City/[facility] Co de Phone Number [facility] [place] [address] * Specimen to Pathology (03/31/2021 10:14 AM EST) AP Specimen 03/31/2021 10:1 4 AM EST 03/31/2021 10:14 AM EST Narrative [facility] - 03/31/2021 10:14 AM EST Specimen requisition ordered. 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, except mandible documented in this encounter Administered Medications Inactive Administered Medications - up to 3 most recent administrations Medication Order MAR Action Action Date Dose Rate Site lactated ringers infusion 1,000 mL, at 100 mL/hr, Intravenous, CONTINUOUS, Starting on Sat03/31/21 at 0815, Until Sat03/31/21 at 1244, Day of Surgery (Day of Procedure) New Bag 03/31/2021 8:02 AM EST 1,000 mLs 100 mL/hr documented in this encounter Active and Recently [...] Day of Surgery (Day of Procedure) 0802 (New Bag - Prov ider: Arlene Phan RN) PRN Medication Order 03/29/2021 03/30/2021 03/31/2021 bacitracin ointment (CANCELED) ONCE PRN, Starting on Sat03/31/21 at 1114, Until Sat03/31/21 at 1600, Intra-Operative (Intra-Procedure) 1114 (Given - Provid er: Apolinar Hernández MD) ciprofloxacin-hydrocortisone (Cipro HC Otic) 0.2-1 % otic suspension (CANCELED) ONCE PRN, Starting on Sat03/31/21 at 1034, Until Sat03/31/21 at 1600, Intra-Operative (Intra-Procedure), Routine 1034 (Given - Provid er: Apolinar Hernández MD [...] MD) documented in this encounter Care Teams Skid Machine Operator Relationship 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
--- OUTSIDE RECORDS SUMMARY | 2024-02-10 15:18 | XMS_ITS | Encounter Summary ---
[place] [address] Care Team Providers Care Home Coordinator Name Role Phone Ilya Medina MD Primary Care Provider [phone] Reason for Referral * Diagnostic Test (Routine) - Closed Specialty Diagnoses / Procedures Referred By Contac t Referred To Contact Radiology Diagnoses Primary malignant neoplasm of temporal bone Procedures CT Neck Soft Tissue w Contrast (Generic) Apolinar Hernández MD [facility] [place] [address] [facility] [place] [address] Referral ID Status Reason Start Date Expiration Date V isits Requested Visits Authorized [id number] Closed Specialty Service Requested 02/08/2021 08/08/2022 1 1 Encounter Details Date Type Department Care Team (Late st Contact Info) Description 02/08/2021 Orders [place] [address] Nga Winter RN Primary malignant neoplasm of temporal bone Social History Tobacco Use [...] EST Office Visit Radiation Oncology at [address] [address] Tyrese Fitzgerald MD [facility] [place] [address] documented as of this encounter Results * [...] who have questions please contact the health progressive care manager that requested your imaging first. ? Narrative 02/23/2021 10:44 AM EDT EXAMINATION: CT [...] patients who have questions please contactthe health progressive care manager that requested your imaging first. Apolinar Hernández MD IMG CT ORDERABLES documented in this encounter Visit Diagnoses Diagnosis Primary malignant neoplasm of temporal bone Primary malignant neoplasm of temporal bone documented in this encounter Care Teams Home Coordinator Relationship 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
--- OUTSIDE RECORDS SUMMARY | 2024-02-10 15:18 | XMS_ITS | Encounter Summary ---
[place] [address] Care Team Providers Care Job Site Superintendent Name Role Phone Ilya Medina MD Primary Care Provider [phone] Reason for Referral * Diagnostic Test (Routine) - Denied Specialty Diagnoses / Procedures Referred By Contac t Referred To Contact Radiology Diagnoses Primary malignant neoplasm of temporal bone Procedures CT Temporal Bone wo Contrast (Generic) Apolinar Hernández MD [facility] [place] [address] [facility] [place] [address] Referral ID Status Reason Start Date Expiration Date V isits Requested Visits Authorized [id number] Denied Specialty Service Requested 03/08/2021 09/04/2021 1 0 Encounter Details Date Type Department Care Team (Late st Contact Info) Description 02/07/2021 Orders Only [place] [address] Apolinar Hernández MD [facility] [place] [address] Primary malignant neoplasm of temporal bone (Primary [...] EST Office Visit Radiation Oncology at [address] [phone] Tyrese Fitzgerald MD [facility] [place] [address] documented as of this encounter Results * CT Temporal Bone wo Contrast (Generic) [...] who have questions please contact the health hospice care consultant that requested your imaging first. ? Narrative [...] patients who have questions please contactthe health hospice care consultant that requested your imaging first. Electronically signed by: Lon Calvin [facility]([phone]), at 02/23/2021 10:44 AM Apolinar Hernández MD IMG CT ORDERABLES documented in this encounter Visit Diagnoses Diagnosis Primary malignant neoplasm of temporal bone- Primary Primary malignant neoplasm of temporal bone documented in this encounter Care Teams Job Site Superintendent Relationship 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
--- OUTSIDE RECORDS SUMMARY | 2024-02-10 15:18 | XMS_ITS | Encounter Summary ---
[place] [address] Care Team Providers Care Structural Steel Trades Worker Name Role Phone Ilya Barrera MD Primary Care Provider [phone] Reason for Visit * Reason Comments Procedure Encounter Details Date Type Department Care Team (Late st Contact Info) Description 10/09/2011 10:30 AM EDT Office Visit Dermatology [address] [facility] [address] [place] [address] Enoc Vázquez MD [address] [facility] [place] [address] Nevus (Primary Dx) Social History Tobacco Use Types [...] Progress Notes * Enoc Vázquez MD - 10/09/2011 11:30 AM EDT Problem: Followup of bothersome nevi. Suman follows up and would like to have some nevi removed. Physical examination again reveals three nevi on the nape of the neck that are often rubbed and irritated, and two compound versus intradermal nevi that are often irritated on the left eyelid, site A medial lower eyelid, site B left lateral eyelid. Assessment and Plan: 1. Bothersome nevi. a. After obtaining informed patient consent, the nape of the neck sites were removed with shave biopsy. b. Triple antibiotic ointment and Band-Aids were placed at treatment sites. 2. Left lower eyelid nevi, site A medial, site B lateral. a. After obtaining informed patient consent, the sites were anesthetized and removed with excisional biopsy. b. Closure with 5-0 Ethilon. c. Wound care instructions and supplies given. d. Return to the clinic in one week for suture removal and biopsy results. Pathology Addendum per [facility] 10/13/11 : Sites A and B: Intradermal Nevi documented in this encounter Procedure Notes * Provider, Scanning - 10/16/2011 5:38 PM EDTAssociated Order(s): SCAN DOC: SURGICAL PATHOLOGY documented in this encounter Plan of Treatment Upcoming Encounters Date Type Department Care Team (Late st Contact Info) Description 04/29/2024 11:00 AM EST Office Visit Radiation Oncology at [address] [phone] Tyrese Fitzgerald MD [facility] [place] [address] documented as of this encounter Procedures Procedure Name Priority Date/Time Associated Diagnosis Comments SURGICAL PATHOLOGY SCAN 10/16/2011 5:38 PM EDT documented in this encounter Results * SCAN DOC: SURGICAL PATHOLOGY (10/16/2011 5:38 PM EDT) Narrative 10/16/2011 5:38 PM EDT Procedure Note Provider, Scanning - 10/16/2011 5:38 PM EDT Scanning Provider MEDIA MGR SCAN EXT O RDR/RSLT documented in this encounter Visit Diagnoses Diagnosis Nevus- Primary Benign neoplasm of skin, site unspecified documented in this encounter Care Teams Structural Steel Trades Worker Relationship Specialty Start Date End Date Ilya Barrera MD PCP - General 04/04/10 08/25/12 documented as of this encounter
--- OUTSIDE RECORDS SUMMARY | 2024-02-10 15:18 | XMS_ITS | Encounter Summary ---
[place] [address] Care Team Providers Care Pastry Sous Chef Name Role Phone Ilya Barrera MD Primary Care Provider [phone] Reason for Visit * Reason Comments Skin Check Encounter Details Date Type Department Care Team (Late st Contact Info) Description 09/24/2011 9:00 AM EDT Office Visit Dermatology [address] [facility] [address] [place], [place] [address] Enoc Vázquez MD [address] [facility] [place] [address] Nevus (Primary Dx) Social History Tobacco Use [...] Progress Notes * Enoc Vázquez MD - 09/24/2011 9:30 AM EDT Problem: 1. Followup repeat six-month skin checkup. 2. History of atypical lentiginous junctional melanocytic proliferation, right lateral neck, borderline melanoma in situ. 3. No personal or family history of melanoma. Suman follows up and has been doing well. He has no new lesions of concern. He does have some new moles he would like me to check and potentially have removed at some point. Physical examination today reveals a pleasant 56-year-old gentleman who has a soft, fleshy 3-mm compound interdermal nervus on the right lower eyelid and a couple of 2 to 3-mm nevi also on the nape of the neck and left postauricular scalp. There is no evidence of recurrent pigmentation at the right lateral neck excision site. Examination of the head and the neck, the chest, the back, hands, arms, forearms, thighs, and calves including the feet and the toe web spaces is benign. Assessment and Plan: 1. History of atypical melanistic proliferation, suspicion for malignant melanoma in situ, right lateral neck. a. No evidence of recurrence. b. The patient reassured. Return to clinic in three months for recheck. I think that after next visit we will likely be able to go to just once yearly visits. 2. Nevi, bothersome. We will schedule a 30-minute appointment for excision of right lower eyelid site and shave biopsy of nape of the neck site. Note, today a single acrochordon was removed with electrodessication from the left upper lateral eyelid. Copy: Ilya Barrera M.D. documented in this encounter Plan of Treatment Upcoming Encounters Date Type Department Care Team (Late st Contact Info) Description 04/29/2024 11:00 AM EST Office Visit Radiation Oncology at [address] [address] Tyrese Fitzgerald MD [facility] [place] [address] documented as of this encounter Visit Diagnoses Diagnosis Nevus- Primary Benign neoplasm of skin, site unspecified documented in this encounter Care Teams Pastry Sous Chef Relationship Specialty Start Date End Date Ilya Barrera MD PCP - General 04/04/10 08/25/12 documented as of this encounter
--- OUTSIDE RECORDS SUMMARY | 2024-02-10 15:18 | XMS_ITS | Encounter Summary ---
Author Organization [facility] [place] [address] Care Team Providers Care Mica Machine Operator Name Role Phone Ilya Barrera MD Primary Care Provider [phone] Reason for Visit * Reason Onset Date Comments Irritable Bowel Syndrome 01/28/2013 diarrhe a Encounter Details Date Type Department Care Team (Late st Contact Info) Description 01/28/2013 Telephone [place] [phone] Skye Ramirez RN Irritable Bowel Syndrome (diarrhea) Social History Tobacco Use Types Packs/Day Years [...] encounter Miscellaneous Notes * Telephone Encounter - Skye Ramirez RN - 01/28/2013 10:19 AM EDT Follow up call to patient. Since starting Bentyl, he has noticed less frequent loose, watery stools. He has perhaps one episode twice weekly; does not keep him from going out of the house. He cut outdairy for about 2 weeks, but made no noticeable difference. He has fodmap diet sheet; does not strictly follow. We discussed that he could supplement with imodium, as mentioned in office note from consult with Adarsh Page APRN. Advised he start with half to one tab initially, so as not to causeconstipation. He agrees to plan; will call back as needed. * Telephone Encounter - Skye Ramirez RN - 01/28/2013 10:15 AM EDT Message copied by SKYE RAMIREZ on SatJan 28, 2013 10:15 AM ------ Message from: TIEN DURHAM Created: SatJan 22, 2013 2:42 PM Thank you ----- Message ----- From: Adarsh Page APRN Sent: 12/08/2012 12:54 PM To: Tien Durham, RN See my note Please call pt and see how plan is working. [place]/bx normal. documented in this encounter Plan of Treatment Upcoming Encounters Date Type Department Care Team (Late st Contact Info) Description 04/29/2024 11:00 AM EST Office Visit Radiation Oncology at [address] [phone] Tyrese Fitzgerald MD [facility] [place] [address] documented as of this encounter Visit Diagnoses Not on filedocumented in this encounter Care Teams Mica Machine Operator Relationship Specialty Start Date End Date Ilya Barrera MD PCP - General 08/26/12 05/10/14 documented as of this encounter
--- OUTSIDE RECORDS SUMMARY | 2024-02-10 15:18 | XMS_ITS | Encounter Summary ---
Author Organization [facility] Address [facility] [place] [address] Care Team Providers Care Communications Representative Name Role Phone Ilya Barrera MD Primary Care Provider [phone] Encounter Details Date Type Department Care Team (Latest Contact Info) Description 10/09/2012 1:25 PM EDT - 10/09/2012 3:45 PM EDT Hospital Encounter [place] [address] Arvind Vaca MD [facility] [place] [address] Rubin Owen MD [facility] [place] [address] Diarrhea Discharge Disposition: Home Social History Tobacco Use [...] encounter Discharge Instructions * Discharge Instructions* Charissa Khan RN - 10/09/2012 3:04 PM EDT You [...] occurs, please contact your MD. Please call [phone] before 5pm with problems, questions or concerns. After 5pm call [phone] and ask to speak with the pipe out worker microsoft dynamics ax consultant. Discharge instructions reviewed with patient who expresses [...] you need to be checked. Saturday-Saturday Clinic [phone] 8a-5p Same Day Endo [phone] 7a-8p Otherwise contact [phone] and ask to speak to the pipe out worker microsoft dynamics ax consultant Follow up care is a mims part [...] EST Office Visit Radiation Oncology at [address] [phone] Tyrese Fitzgerald MD [facility] [place] [address] documented as of this encounter Procedures Procedure [...] 2:55 PM EDT) Surgical Pathology Report ? [facility] ? Provider: ?? RUBIN OWEN ?Pt. Name: ?? SUMAN [place] ? Acc #: ?[id number] ?Pt. ? Col Date: ?? 10/09/2012 ? [...] PATHOLOGY/CYTOLOGY O ANA LUISA Performing Organization Address [facility] de Phone Number LUKE [place]O * Specimen to Pathology (surgical or derm) (10/09/2012 2:55 PM EDT) AP Specimen 10/09/2012 2:55 PM EDT 10/09/2012 2:55 PM EDT Narrative LUKE LAIUM - 10/09/2012 2:55 PM EDT Specimen requisition ordered. ??Separate Pathology report to follow Rubin Owen MD PATHOLOGY/CYTOLOGY O ANA LUISA Performing Organization Address [facility] de Phone Number LUKE [place] * Specimen to Pathology (surgical or derm) (10/09/2012 2:55 PM EDT) AP Specimen 10/09/2012 2:55 PM EDT 10/09/2012 2:55 PM EDT Narrative LUKE LAIUM - 10/09/2012 2:55 PM EDT Specimen requisition ordered. ??Separate Pathology report to follow Rubin Owen MD PATHOLOGY/CYTOLOGY O RDERABLES [place]KE [place] * COLONOSCOPY (10/09/2012 1:56 PM EDT) Pathologist [facility] COLONOSCOPY [facility] Endoscopy Patient Name: Suman [place] ? Procedure Date: 10/09/2012 1:56 PM ? Date of : 1955 ? Age: 57 ? Order #: [id number] ? Procedure: ? Colonoscopy Indications: ? Chronic diarrhea Providers: ? Rubin Owen MD, Connie Modi, ? RN, Neelima Nixon, Scrap Piler Referring MD: ?Ilya Barrera MD, Adarsh Page [...] in this encounter Visit Diagnoses Diagnosis Diarrhea documented in this encounter Active and Recently Administered Medications Times are shown in EDT. PRN Medication Order 10/07/2012 10/08/2012 10/09/2012 fentaNYL 50mcg/mL injection (CANCELED) ONCE PRN, Starting on Lyndsay 10/09/12 at 1421, Until Lyndsay 10/09/12 at 1812, Pain, Intra-Operative (Intra-Procedure), Routine 1421 (Given - Provid er: Connie Modi RN)1424 (Given - Provider: Connie Modi RN)1436 (Given - Provider: Connie Modi, RN) midazolam (VERSED) injection (CANCELED) ONCE PRN, Starting on Lyndsay 10/09/12 at 1421, Until Lyndsay 10/09/12 at 1812, Sleep, Intra-Operative (Intra-Procedure), Routine 1421 (Given - Provid er: Connie Modi, RN)1424 (Given - Provider: Connie Modi, RN)1436 (Given - Provider: Connie Modi, RN) documented in this encounter Care Teams Communications Representative Relationship Specialty Start Date End Date Ilya Barrera MD PCP - General 08/26/12 05/10/14 documented as of this encounter
--- OUTSIDE RECORDS SUMMARY | 2024-02-10 15:18 | XMS_ITS | Encounter Summary ---
Author Organization [facility] [place] [address] Care Team Providers Care Office Support Name Role Phone Lawson Hankins MD Primary Care Provider [phone] Encounter Details Date Type Department Care Team (Late Contact Info) Description 06/13/2016 Telephone [place] [phone] Anuradha Brown Social History Tobacco Use Types Packs/Day Years [...] encounter Miscellaneous Notes * Telephone Encounter - Anuradha Brown - 06/13/2016 4:17 PM EST Called the patient back on 05/09 dr trinidad sent a message to xiao to do a repeat hearing it was never set up. documented in this encounter Plan of Treatment Upcoming Encounters Date Type Department Care Team (Late Contact Info) Description 04/29/2024 11:00 AM EST Office Visit Radiation Oncology at [address] [phone] Tyrese Fitzgerald MD [facility] [place] [address] documented as of this encounter Visit Diagnoses Not on filedocumented in this encounter Care Teams Office Support Relationship Specialty Start Date End Date Lawson Hankins MD [facility] [address] [place] [address] PCP - General 05/11/14 09/24/16 documented as of this encounter
--- OUTSIDE RECORDS SUMMARY | 2024-02-10 15:18 | XMS_ITS | Encounter Summary ---
Author Organization [facility] [place] [address] Care Team Providers Care Pharmaceutical Physician Name Role Phone Ilya Medina MD Primary Care Provider [phone] Encounter Details Date Type Department Care Team (Late st Contact Info) Description 04/03/2021 Telephone [place] [phone] Nga Winter RN Social History Tobacco Use [...] Encounter - Nga Winter RN - 04/03/2021 11:48 AM EST Caller: Suman Relationship: Self Clarified Two Patient Identifiers: [x] Reason For Call: post operative questions Assessment/Symptom Review (onset/duration, location/which ear, what makes it better or worse, color/consistency drainage, pertinent positives and negatives): Patient's call returned. Patient would like to know how long he needs to leave his HOB up and if he can use his left SNYDER. Instructed patient it's ok to sleep flat or with HOB up now, giving explanations this was to help with post operative swelling. Instructed patient to leave SNYDER out until AFTER all packing is removed and he gets approval from the surgeon. Patient voices understanding and acceptance of this advice and will call back if any further questions or concerns. Date of procedure: 03/31/21 Otorrhea?: no Otalgia?: no Fullness?: full Tinnitus?: no Hearing Loss?: no Dizziness?: no Recent illness/fevers?: no Review of Systems Related to Reason for Call: System POS NEG Not Applicable Head (ENT /Neuro) [x] [] [] Cardiac [] [] [x] Respiratory [] [] [x] GI [] [] [x] [] [] [x] Musculoskeletal [] [] [x] Integumentary [] [] [x] Mental Health [] [] [x] Select Specific Decision Support Tool Used: As per postoperative AVS. Disposition/Plan of Care: Future appointment Patient/Caregiver verbalizes understanding of plan of care: Yes Patient/Caregiver agrees with plan: Yes Advised patient/caregiver to: call office back for any new or worsening symptoms Patient/Caregiver demonstrates understanding: Yes documented in this encounter Plan of Treatment Upcoming Encounters Date Type Department Care Team (Late st Contact Info) Description 04/29/2024 11:00 AM EST Office Visit Radiation Oncology at [address] [phone] Tyrese Fitzgerald MD [facility] DR [place] [address] documented as of this encounter Visit Diagnoses Not on filedocumented in this encounter Care Teams Pharmaceutical Physician Relationship 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
--- OUTSIDE RECORDS SUMMARY | 2024-02-10 15:18 | XMS_ITS | Encounter Summary ---
[place] [address] Care Team Providers Care Product Development Ecologist Name Role Phone Ilya Barrera MD Primary Care Provider [phone] Reason for Visit * Reason Comments Skin Check Encounter Details Date Type Department Care Team (Late st Contact Info) Description 04/28/2012 11:00 AM EST Office Visit Dermatology [address] [facility] [address] [place], [place] [address] Enoc Vázquez MD [address] [facility] [place]MAT[place] [address] Chilblains (Primary Dx) Social History Tobacco Use Types [...] Progress Notes * Enoc Vázquez MD - 04/28/2012 11:30 AM EST Problem: Sore second toe left foot. Suman follows up because he has developed over the last couple of weeks discomfort and soreness of the distal toe pad of the left second toe. He states that about a year ago he stubbed his toe and thought he may have injured it. However, it was asymptomatic until just two weeks ago when he noticed a burning pain, a stinging, in the affected toe. This developed a couple weeks after having been involved in a honk and wave get out to vote for the election on March 18. He states that he does not usually get out, and he has not been out in the cold otherwise. That day he was just wearing sneakers and socks. He golfs in the summer but has not been exposed to the cold this winter yet otherwise. He has no history of frostbite or chilblains. He has no history of Raynaud's phenomenon. Dr. Barrera recently got x-rays of that toe and found no bony abnormalities, Suman states. Physical examination reveals a pleasant 56-year-old gentleman who has slight violaceous discoloration and some swelling of the distal left and some swelling of the distal left second toe. It is longer than all of his other toes. There is no area of crusting or scabbing or ulceration. The skin markings are otherwise pretty much normal with just a slight suggestion of some pinkish violaceous hue. The tips of all of his toes are a little bit cool. Assessment and Plan: Probable recent mild chilblains. a. No evidence of frostbite. b. Recommended concentrating on keeping his feet warm this winter. Discussed decreased circulation and decreased ability to thermoregulate with age. c. Reassured him that I see no evidence of any permanent damage and that I would expect that his symptoms of burning and stinging, which only occur intermittently and infrequently now, should totally resolve. Return to clinic here p.r.n. Copy: Ilya Barrera M.D. documented in this encounter Plan of Treatment Upcoming Encounters Date Type Department Care Team (Late st Contact Info) Description 04/29/2024 11:00 AM EST Office Visit Radiation Oncology at [address] [phone] Tyrese Fitzgerald MD [facility] [place] [address] documented as of this encounter Visit Diagnoses Diagnosis Chilblains- Primary Effects of chilblains documented in this encounter Care Teams Product Development Ecologist Relationship Specialty Start Date End Date Ilya Barrera MD PCP - General 04/04/10 08/25/12 documented as of this encounter
--- OUTSIDE RECORDS SUMMARY | 2024-02-10 15:18 | XMS_ITS | Encounter Summary ---
[place] [address] Care Team Providers Care Assembler Sandal Parts Name Role Phone Ilya Medina MD Primary Care Provider [phone] Encounter Details Date Type Department Care Team (Late Contact Info) Description 03/02/2021 Telephone [place] [phone] Yenni Lemos Social History Tobacco Use Types Packs/Day Years [...] encounter Miscellaneous Notes * Telephone Encounter - Yenni Lemos - 03/02/2021 12:24 PM EDT Arielle, Patient is scheduled to have surgery on 03/31/2021 and the packet has been mailed to the verified address on file. Follow up appointment is as follows: 1 week with nurse, then 4-6 weeks Thank you! documented in this encounter Plan of Treatment Upcoming Encounters Date Type Department Care Team (Late Contact Info) Description 04/29/2024 11:00 AM EST Office Visit Radiation Oncology at [address] [phone] Tyrese Fitzgerald MD [facility] [place] [address] documented as of this encounter Visit Diagnoses Not on filedocumented in this encounter Care Teams Assembler Sandal Parts Relationship 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
--- OUTSIDE RECORDS SUMMARY | 2024-02-10 15:18 | XMS_ITS | Encounter Summary ---
Author Organization [facility] [place] [address] Care Team Providers Care Molder Meat Name Role Phone Ilya Medina MD Primary Care Provider [phone] Encounter Details Date Type Department Care Team (Late st Contact Info) Description 02/07/2021 [place] [phone] Jemma Reyes Social History Tobacco Use Types Packs/Day Years [...] encounter Miscellaneous Notes * Telephone Encounter - Jemma Reyes - 02/07/2021 1:57 PM EDT Images from the original note were not included. From: Jemma Reyes Sent: Sunday, February 07, 2021 12:20 PM To: '[email or web address]' <[email or web address]> Subject: KATHY pathology slides Importance: High *KATHY PATH SLIDES REQUEST* Patient: Suman Warner : 1955 Arielle, The above patient has been referred to our ENT clinic at [facility] by Dr. Karri Trinidad. It appears the patient had a specimen sent to your lab for pathology reading on 02/01/2021. Please forward these slides urgently to: [facility] Department of Otolaryngology [address] [place] [id number] In order to get here the fastest please overnight them using our FedEx number [id number]. Thank you, Jemma Reyes Sr. Clinical Rotary Driller Helper, Audiology & Otolaryngology [facility] phone: [phone] fax: [phone] documented in this encounter Plan of Treatment Upcoming Encounters Date Type Department Care Team (Late st Contact Info) Description 04/29/2024 11:00 AM EST Office Visit Radiation Oncology at [address] [phone] Tyrese Fitzgerald MD [facility] [place] [address] documented as of this encounter Visit Diagnoses Not on filedocumented in this encounter Care Teams Molder Meat Relationship 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
--- OUTSIDE RECORDS SUMMARY | 2024-02-10 15:18 | XMS_ITS | Encounter Summary ---
Author Organization Formerly [facility] [place] [address] Care Team Providers Care Bingo Manager Name Role Phone Ilya Medina MD Primary Care Provider [phone] Reason for Visit * Auth/Cert Specialty Diagnoses [...] Expiration Date Visits Re quested Visits Authorized [id number] 1 1 Encounter Details Date Type Department Care Team (Late st Contact Info) Description 03/31/2021 8:39 AM EST Anesthesia [place] [phone] Hannah Proctor MD [facility] DR [place] [address] Joyce Miramontes CRNA Anesthesia Record Procedure Summary Procedure Name Responsible Anesthesiologist Anesthesia Start Time Anesthesia Stop Time TYMPANOPLASTY (WRVU 10.05) (Left: Ear) Hannah Proctor MD 03/31/21 0839 03/31/21 1126 Events Date Time Event Comment 03/31/2021 0807 0839 AN Verify 0839 Start 0839 An Start Data 0851 An Induction 0855 Quick Note No view with ANIVAL [place] #3; able to bag-mask ventilate. Intubated successfully with C-MAC 0858 An Intubation 0910 Anesthesia Ready 1114 Extubation/LMA Out 1118 an stop data 1126 Recovery or ICU Handoff Rosana ent care was transferred to the destination unit staff after review of the patient's medical history, current anesthetic/surgical status and plan, according to the Provider Handoff Checklist. 1126 Stop Meds Name Total fentaNYL 100 mcg IV Lidocaine 100 mg Propofol 300 mg PHENYLephrine 120 mcg ePHEDrine 10 mg Ondansetron 4 mg Dexamethasone 8 mg Succinylcholine 200 mg ceFAZolin 2 g PHENYLephrine INF 4,920 mcg Propofol INF 2,430.49 mg REMIfentanil INF 1.14 mg Lactated Ringers 700 mL Lactated Ringers 300 mL * Agents Name O2 Air N2O Sevoflurane (et) * Blood No blood administrations on file. Lines, Drains, and Airways Type Details Placement Removal (RETIRED) Peripheral IV Line - Single Lumen 03/31/21; 0802; metacarpal vein (top of hand), left; vqoq-kgw-zhbtdh catheter system; 20 gauge; EUSEBIO Phan; 03/31/21; 1328 03/31/21 0802 by Arlene Arias RN 03/31/21 1328 by Cayla Irizarry, RN ETT Mask Ventilation: Adjunct (2); ETT Type: Cuffed; ETT Size: 7.5 mm; Indirect: Video; Notes: Asleep, Pre-O2, Cricoid Pressure, Stylette; Attempts: 2; Laryngoscopy Grade: 1; ETT Placement Verified By: Auscultation, Capnometry, Visual; Secured at Teeth: 23 cm; Inserted by: MD Hitesh; Removal Date: 03/31/21; Removal Time: 1114 03/31/21 0858 by Joyce Miramontes CRNA 03/31/21 1114 by Joyce Miramontes CRNA Urethral Catheter 03/31/21; 0910; Surg xavi longer than 2 hours, Physician order; indwelling double lumen catheter; latex; 14; inserted at this facility; 1; 5; 10; other (see comments) (patient under general anesthesia); drainage bag to dependent drainage; 03/31/21; 1108 03/31/21 0910 by Elke Morrison RN 03/31/21 1108 by Elke Morrison RN (RETIRED) Peripheral IV Line - Single Lumen 03/31/21; 0918; cephalic vein (lateral side of arm), right; pjom-wyg-zhadsj catheter system; Anatomical Landmarks; 18 gauge; MD Hitesh; 03/31/21; 1327 03/31/21 0918 by Joyce Miramontes CRNA 03/31/21 1327 by Cayla Irizarry RN Incision 03/31/21; 0935; Left ; ear; tympanoplasty; LDA not present upon assessment; 06/27/21; 0000 03/31/21 0935 by Elke Morrison RN 06/27/21 0000 by Gavi Padron RN documented in this encounter Social History [...] OR Notes * Anesthesia Postprocedure Evaluation - Hannah Proctor MD - 03/31/2021 11:51 AM EST Department of Anesthesiology Post-procedure Note Patient: Suman Warner Procedure Summary Date: 03/31/21 Room / Location: [facility] OR [facility] MAIN OR Anesthesia Start: 838 Anesthesia Stop: 1126 Procedures: TYMPANOPLASTY (WRVU 10.05) (Left Ear) MICROSCOPE USE (WRVU 3.46) (Left ) FACIAL NERVE MONITORING, SETUP PERIPHERAL (WRVU 0.54) (N/A Neck) MODIFIER IRIDEX LASER (N/A ) MODIFIER,ENT MODERATE (N/A ) 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 Patient Location: PACU/[facility] Level of Consciousness: Conscious but Sleepy Pain Management: Satisfactory Analgesia PONV: None Cardiovascular Status: At Baseline Respiratory Status: At Baseline Postoperative Fluid Status: Intravascular EUvolemia Possible Anesthetic Complications: NONE apparent at time of evaluation Final Primary Anesthesia Type: General (The anesthetic type performed was the same as planned.) Comments: * Anesthesia Preprocedure Evaluation - Hannah Proctor MD - 03/31/2021 8:01 AM EST Pre-Anesthesia Evaluation for: Suman Warner a 65 y.o. male. Procedure(s): TYMPANOPLASTY (WRVU 10.05) MICROSCOPE USE (WRVU 3.46) FACIAL NERVE MONITORING, SETUP PERIPHERAL (WRVU 0.54) MODIFIER IRIDEX LASER MODIFIER,ENT MODERATE Patient Active Problem List Diagnosis ??? 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 Viral warts ??? Diarrhea ??? Chilblains ??? Visit for suture removal ??? Nevus ??? Dizziness ??? GERD (gastroesophageal reflux disease) ??? Chronic serous otitis media ??? Dysplastic nevus ??? Atypical nevus ??? Nocturia Past Medical History: Diagnosis Date ??? GERD (gastroesophageal reflux disease) 02/06/2011 ??? Nocturia Past Surgical History: Procedure Laterality Date ??? PRO COLONOSCOPY, BIOPSY 10/09/2012 COLONOSCOPY FLEXIBLE, WITH BX performed by Xiang Owen MD at [facility] ENDOSCOPY ??? PRO UPPER GI ENDOSCOPY, BIOPSY 03/20/2011 UPPER GASTROINTESTINAL ENDOSCOPY,WITH BIOPSY SINGLE OR MULTIPLE performed by JORDAN RAMOS at [facility] ENDOSCOPY Social History Tobacco Use ??? Smoking status: Never Smoker ??? Smokeless tobacco: Never Used Substance Use Topics ??? Alcohol use: No Social History Substance and Sexual Activity Drug Use Yes ??? Types: Benzodiazapines No Known Allergies Medications: MAR and/or home medications have been reviewed. Physical Exam: Preprocedure Vitals Current as of 03/31/21 0801 BP: 153/95 Pulse: 68 Resp: 16 SpO2: 100 Temp: 36.4 ??C (97.5 ??F) Height: 177.8 cm (5' 10) (03/31/21) Weight: 115.6 kg (254 lb 13.6 oz) (03/31/21) BMI: 36.56 IBW: 73 kg (160 lb 15 oz) Last edited 03/31/21 0719 by SK Airway Assessment: Mallampati: II TM distance: <3 FB Neck ROM: limited Cardiovascular Assessment: Rhythm: regular Rate: normal system normal Pulmonary Assessment: breath sounds clear to auscultation pulmonary exam normal Dental Assessment: - normal exam Misc Assessment: Patient is wearing No contact(s). IV access: Peripheral line Last Filed Perioperative Cognitive Screening None Anesthesia Plan: ASA 2 general, with a(n) intravenous induction 65 yo male with SARITA (CPAP), obesity GETA; no paralysis for facial nerve monitoring Informed Consent: Anesthetic plan and risks discussed with patient. Plan discussed with PANCAKE PROFESSIONAL. Anesthesia Screening documented in this encounter Plan of Treatment Upcoming Encounters Date Type Department Care Team (Late st Contact Info) Description 04/29/2024 11:00 AM EST Office Visit Radiation Oncology at [address] [phone] Tyrese Fitzgerald MD [facility] [place] [address] documented as of this encounter Visit Diagnoses Not on filedocumented in this encounter Administered Medications Inactive Administered Medications - up to 3 most recent administrations Medication Order MAR Action Action Date Dose Rate Site ceFAZolin (Ancef) 1 g in dextrose 5% 50 mL infusion Intravenous, PRN, Starting on Sat03/31/21 at 0910, Until Sat03/31/21 at 1126, Administer over 30 Minutes, Anesthesia Intra-op Given 03/31/2021 9:10 AM EST 2 g dexamethasone (Decadron) injection Intravenous, PRN, Starting on Sat03/31/21 at 1017, Until Sat03/31/21 at 1126, Anesthesia Intra-op, Routine Given 03/31/2021 10:17 AM EST 8 mg ePHEDrine sulfate (5 mg/mL) multi-dose injection Intravenous, PRN, Starting on Sat03/31/21 at 0922, Until Sat03/31/21 at 1126, Anesthesia Intra-op, Routine Given 03/31/2021 9:22 AM EST 5 mg Given 03/31/2021 9:15 AM EST 5 mg fentaNYL (pf) (50 mcg/mL) multi-dose injection Intravenous, PRN, Starting on Sat03/31/21 at 0851, Until Sat03/31/21 at 1126, Anesthesia Intra-op, Routine Given 03/31/2021 8:51 AM EST 100 mcg lactated ringers infusion Intravenous, CONTINUOUS PRN, Starting on Sat03/31/21 at 0839, Until Sat03/31/21 at 1126, Anesthesia Intra-op New Bag 03/31/2021 8:39 AM EST lactated ringers infusion Intravenous, CONTINUOUS PRN, Starting on Sat03/31/21 at 0909, Until Sat03/31/21 at 1126, Anesthesia Intra-op New Bag 03/31/2021 9:09 AM EST lidocaine (pf) (Xylocaine) (20 mg/mL) 2% injection syringe Intravenous, PRN, Starting on Sat03/31/21 at 0851, Until Sat03/31/21 at 1126, Anesthesia Intra-op, Routine Given 03/31/2021 8:51 AM EST 100 mg ondansetron (pf) (Zofran) (2 mg/mL) injection Intravenous, PRN, Starting on Sat03/31/21 at 1051, Until Sat03/31/21 at 1126, Anesthesia Intra-op, Routine Given 03/31/2021 10:51 AM EST 4 mg PHENYLephrine (Margarito-Synephrine) (80 mcg/mL) in sodium chloride 0.9% 250 mL infusion Intravenous, CONTINUOUS PRN, Starting on Sat03/31/21 at 0915, Until Sat03/31/21 at 1126, Anesthesia Intra-op, Routine Rate/Dose Change 03/31/2021 10:41 AM EST 20 mcg/min 15 mL/hr Rate/Dose Change 03/31/2021 10:37 AM EST 40 mcg/min 30 mL/ hr Rate/Dose Change 03/31/2021 9:53 AM EST 60 mcg/min 45 mL/h r PHENYLephrine in NS (PF) (MARGARITO-SYNEPHRINE) 0.8 mg/10 mL (80 mcg/mL) multi-dose injection Syrg Intravenous, PRN, Starting on Sat03/31/21 at 0936, Until Sat03/31/21 at 1126, Anesthesia Intra-op, Routine Given 03/31/2021 9:41 AM EST 80 mcg Given 03/31/2021 9:36 AM EST 40 mcg propofoL (Diprivan) (10 mg/mL) infusion Intravenous, CONTINUOUS PRN, Starting on Sat03/31/21 at 0905, Until Sat03/31/21 at 1126, Anesthesia Intra-op, Routine New Bag 03/31/2021 10:01 AM EST 175 mcg/kg/min 121.38 mL/hr Rate/Dose Change 03/31/2021 9:45 AM EST 175 mcg/kg/min 121 .38 mL/hr New Bag 03/31/2021 9:02 AM EST 200 mcg/kg/min 138.72 mL /hr propofoL (Diprivan) 10 mg/mL bolus injection (Anesthesia) Intravenous, PRN, Starting on Sat03/31/21 at 0851, Until Sat03/31/21 at 1126, Anesthesia Intra-op Given 03/31/2021 8:55 AM EST 100 mg Given 03/31/2021 8:51 AM EST 200 mg remifentaniL (Ultiva) (0.02 mg/mL) infusion (Anesthesia) Intravenous, CONTINUOUS PRN, Starting on Sat03/31/21 at 0905, Until Sat03/31/21 at 1126, Anesthesia Intra-op Rate/Dose Change 03/31/2021 10:29 AM EST 0.1 mcg/kg/min 34.68 mL/hr New Bag 03/31/2021 10:28 AM EST 0.1 mcg/kg/min 34.68 mL /hr New Bag 03/31/2021 9:02 AM EST 0.1 mcg/kg/min 34.68 mL/ hr succinylcholine (Anectine;Quelicin) (20 mg/mL) injection Intravenous, PRN, Starting on Sat03/31/21 at 0851, Until Sat03/31/21 at 1126, Anesthesia Intra-op, Routine Given 03/31/2021 8:56 AM EST 100 mg Given 03/31/2021 8:51 AM EST 100 mg documented in this encounter Care Teams Bingo Manager Relationship 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
--- OUTSIDE RECORDS SUMMARY | 2024-02-10 15:19 | XMS_ITS | Encounter Summary ---
Author Organization [facility] Address [facility] [place] [address] Care Team Providers Care Banking Paralegal Name Role Phone Ilya Barrera MD Primary Care Provider [phone] Encounter Details Date Type Department Care Team (Latest Contact Info) Description 02/08/2011 7:50 AM EDT - 02/08/2011 11:59 PM EDT Hospital Encounter XRay at [address] [place] [address] CLINIC, Arnaud Barr MD [facility] [place] [address] Dysphagia Discharge Disposition: Home Social History Tobacco Use Types Packs/Day Years Used Date Smoking Tobacco: Never Smokeless Tobacco: Never Alcohol Use Standard Drinks/Week Comments Not Asked 0 (1 standard drink = 0.6 oz [...] 2 times daily. 30 tablet 12 02/06/2011 Brimonidine-Timolol (COMBIGAN) 0.2-0.5 % Drop Place 1 drop into both eyes 2 times daily. 11/29/2010 02/23/2021 terazosin (HYTRIN) 2 mg capsule Take 1 capsule by mouth nightly. 30 capsule 11 11/23/2010 09/30/2012 ALPRAZolam (XANAX) 0.25 mg tablet Take 0.25 [...] EST Office Visit Radiation Oncology at [address] [phone] Tyrese Fitzgerald MD [facility] [place] [address] documented as of this encounter Procedures Procedure Name Priority Date/Time Associated Diagnosis Comments XR FLUORO BARIUM SWALLOW (SINGLE CONTRAST) Routine 02/08/2011 8:41 AM EDT Dysphagia documented in this encounter Results * XR Fluoro Barium swallow (02/08/2011 8:41 AM EDT) Anatomical Region Laterality Modality N/A Radiographic Melania ging 02/08/2011 8:41 AM EDT Impressions 02/08/2011 1:42 PM EDT IMPRESSION: ?? 1. ??Normal barium swallow. ? Film and interpretation reviewed by the attending Narrative 02/08/2011 1:42 PM EDT BARIUM SWALLOW: ?? INDICATION: Feeling that things are being stuck in his throat. ?? EXAM: ??A barium swallow was performed. ?? TECHNIQUE: Routine barium swallow was performed with thin, thick, and barium pill. ?? TOTAL FLUOROSCOPY TIME: ??1 minute, 15 seconds. ?? FINDINGS: During rapid-sequence swallowing, patient moves the bolus easily into the pharynx, which opens to accommodate it. ??The bolus passes easily from the pharynx into the esophagus without aspiration. ??As the bolus travels down the esophagus, there is a good primary peristaltic wave, which efficiently transfers the bolus into the stomach. ??There is no pooling at the GE junction. ?? While the patient was supine, he was also able to easily move the bolus from the esophagus into the stomach. ??Minimal tertiary waves were seen at the lower esophagus while the patient was supine and swallowing. ??The esophagus does not have any mucosal or mural abnormality. ??No hiatal hernia is seen. ??The antrum and duodenal sweep are normal. ??The patient passed a 15 mm barium tablet without difficulty. ?? Procedure Note Deonna Marin MD - 02/08/2011 BARIUM SWALLOW: INDICATION: Feeling that things are being stuck in his throat. EXAM: A barium swallow was performed. TECHNIQUE: Routine barium swallow was performed with thin, thick, andbarium pill. TOTAL FLUOROSCOPY TIME: 1 minute, 15 seconds. FINDINGS: During rapid-sequence swallowing, patient moves the bolus easilyinto the pharynx, which opens to accommodate it. The bolus passes easily fromthe pharynx into the esophagus without aspiration. As the bolus travels downthe esophagus, there is a good primary peristaltic wave, which efficiently transfers the bolus into the stomach. There is no pooling at the GEjunction. While the patient was supine, he was also able to easily move the bolusfrom the esophagus into the stomach. Minimal tertiary waves were seen at thelower esophagus while the patient was supine and swallowing. The esophagus doesnot have any mucosal or mural abnormality. No hiatal hernia is seen. Theantrum and duodenal sweep are normal. The patient passed a 15 mm barium tablet without difficulty. IMPRESSION IMPRESSION: 1. Normal barium swallow. Film and interpretation reviewed by the attending Arnaud Linda MD IMG FLUORO ORDERABL ES documented in this encounter Visit Diagnoses Diagnosis Dysphagia Dysphagia, unspecified documented in this encounter Care Teams Banking Paralegal Relationship Specialty Start Date End Date Ilya Barrera MD PCP - General 04/04/10 08/25/12 documented as of this encounter
--- OUTSIDE RECORDS SUMMARY | 2024-02-10 15:19 | XMS_ITS | Encounter Summary ---
Author Organization Formerly [facility] Address [facility] [place] [address] Care Team Providers Care Reservations Sales Supervisor Name Role Phone Ilya Barrera MD Primary Care Provider [phone] Reason for Visit * Reason Comments Other hearing goes dwon wh en turns head Encounter Details Date Type Department Care Team (Late st Contact Info) Description 12/06/2010 3:30 PM EDT Follow-[place] [address] Arnaud Linda MD [facility] OTOLARYNGOLOG[place] [address] Chronic serous otitis media (Primary Dx) Discharge Disposition: Home Social History [...] Sign Reading Time Taken Comments Blood Pressure 148/101 12/06/2010 3:24 PM EDT Pulse - - Temperature - - Respiratory Rate - - Oxygen Saturation - - Inhaled Oxygen Concentration - - Weight 113.4 kg (250 lb) 12/06/2010 3:24 PM EDT Height 177.8 cm (5' 10) 12/06/2010 3:24 PM EDT Body Mass Index 35.87 12/06/2010 3:24 PM EDT documented in this encounter Progress Notes * Arnaud Linda MD - 12/06/2010 4:05 PM EDT Subjective: Patient ID: Suman Warner is a 55 y.o. male. HPI Here in follow-up of revision mastoidectomy, right ear 1 1/2 years ago. He has noted decreased hearing on the right over the past couple of weeks. He had similar problems in the past and these were always due to middle ear effusion. Hearing on the left has remained stable but poor. Review of Systems Negative or noncontributory Objective: Physical Exam The ears were examined with the operating microscope. On the right the small mastoid cavity is freeof debris. The tympanic membrane is retracted and there is a middle ear effusion noted. On the left, of a large mastoid cavity is cleaned of some dried squamous debris. Assessment and Plan: Middle ear effusion, right ear causing noticeable drop in hearing. I recommended that we proceed with a myringotomy and tube placement. The risk of tympanic membrane perforation was discussed with the patient. He agrees to proceed. With him seated comfortably in the exam chair the operating microscope was used to visualize the ear canal. The anterior portion of the tympanic membrane is topically anesthetized with phenol solution. A myringotomy was created in the anterior medial portion of the drum and a large amount of thick mucoid material evacuated from the middle ear space. A parasol type Bobbin tube is placed without difficulty. Ciprodex drops are instilled into the ear. He tolerated this well and left the office in good condition. He will use Cipro HC drops for the next 3 days and will follow-up in two months. No problem-specific visit notes found for this encounter. documented in this encounter Plan of Treatment Upcoming Encounters Date Type Department Care Team (Late st Contact Info) Description 04/29/2024 11:00 AM EST Office Visit Radiation Oncology at [address] [phone] Tyrese Fitzgerald MD [facility] [place] [address] documented as of this encounter Visit Diagnoses Diagnosis Chronic serous otitis media- Primary Simple or unspecified chronic serous otitis media documented in this encounter Care Teams Reservations Sales Supervisor Relationship Specialty Start Date End Date Ilya Barrera MD PCP - General 04/04/10 08/25/12 documented as of this encounter
--- OUTSIDE RECORDS SUMMARY | 2024-02-10 15:19 | XMS_ITS | Encounter Summary ---
Author Organization [facility] Address [address] [place] [address] Care Team Providers Care Chain Saw Driver Name Role Phone Ilya Barrera MD Primary Care Provider [phone] Encounter Details Date Type Department Care Team (Late st Contact Info) Description 05/20/2023 Lab Requisition [facility] Pathology & Laboratory Medicine - [address] [address] Arvind Hubbard MD [address] [place] [address], [address] [place], [place] [id number] Encounter for other general examination Social History Tobacco Use Types Packs/Day Years Used Date Smoking Tobacco: Never Assessed Sex and Gender Information Value Date Recorded Sex Assigned at Not on file Gender Identity Not on file Sexual Orientation Not on file documented as of this encounter Plan of Treatment Not on file documented as of this encounter Procedures Procedure Name Priority Date/Time Associated Diagnosis Comments SURGICAL PATHOLOGY Today 05/20/2023 9: 06 EST Encounter for other general examination documented in this encounter Results * SURGICAL PATHOLOGY (05/20/2023 9:06 EST) Note to Patient The following pathology results have been interpreted by your pathologist and may be available to you before your health provider has had the opportunity to review them. Please allow time for your provider to receive these results and explore management options, if applicable. 05/22/2023 15:25 EST [facility] Final Diagnosis A. COLON, 100 CM, POLYP, BIOPSY: - Tubular adenoma. B. COLON, 80 CM, POLYP, BIOPSY: - Tubular adenoma. C. COLON, 75 CM, POLYP, BIOPSY: - Tubular adenoma fragments. D. COLON, 55 CM, POLYP, BIOPSY: - Tubular adenoma. 05/22/2023 15:25 [facility] Attestation There was significant resident/fellow involvement in the diagnostic evaluation of this case. By the signature below, the attending physician certifies that they have personally conducted a gross and/or microscopic examination of the described specimens and rendered or confirmed the above diagnosis. 05/22/2023 15:25 [facility] at 1525 Clinical History H/O colon polyp 05/22/2023 15:25 [facility] Gross Description A. Received in formalin labelled with proper patient identification (initials L, D) and 1. Colon polyp 100 cm are 2 sharp-pink tissue fragments (0.9 x 0.3 x 0.2 cm in aggregate). Entirely submitted in A1. B. Received in formalin labelled with proper patient identification (initials L, D) and 2. Colon polyp 80 cm are 2 sharp-pink tissue fragments (0.5 x 0.3 x 0.2 cm in aggregate). Entirely submitted in B1. C. Received in formalin labelled with proper patient identification (initials L, D) and 3. Colon polyp 75 cm are 2 sharp-pink tissue fragments (0.5 x 0.4 x 0.1 cm in aggregate). Entirely submitted in C1. D. Received in formalin labelled with proper patient identification (initials L, D) and 4. Colon polyp 55 cm is a sharp-pink tissue (0.4 x 0.3 x 0.1 cm). Entirely submitted in D1. YUE PRATT(ASCP) 05/20/2023 17:28 05/22/2023 15:25 [facility] Resident/Brian w: Da Narvaez MD 05/22/2023 15:25 [facility] Performing Lab [facility] 05/22/2023 15:25 [facility] Scanned Images 05/22/2023 15:25 [facility] Tissue COLON STRUCTURE / Unknown 05/20/2023 9:06 EST 05/20/2023 16:26 EST Tissue specimen (specimen) COLON STRUCTURE / Unknown 05/20/2023 9:06 EST 05/20/2023 16:26 EST Tissue specimen (specimen) COLON STRUCTURE / Unknown 05/20/2023 9:06 EST 05/20/2023 16:26 EST Tissue specimen (specimen) COLON STRUCTURE / Unknown 05/20/2023 9:06 EST 05/20/2023 16:26 EST Arvind Hubbard MD PATHOLOGY ORDERABLES [facility] [address] [place] [address] documented in this encounter Visit Diagnoses Diagnosis Encounter for other general examination documented in this encounter Care Teams Chain Saw Driver Relationship Specialty Start Date End Date Ilya Barrera MD PCP - General 03/21/15 documented as of this encounter
--- OUTSIDE RECORDS SUMMARY | 2024-02-10 15:19 | XMS_ITS | Encounter Summary ---
Author Organization [facility] Address [facility] [place] [address] Care Team Providers Care Custom Wood Stair Builder Name Role Phone Ilya Medina MD Primary Care Provider [phone] Encounter Details Date Type Department Care Team (Late st Contact Info) Description 04/19/2010 Orders Only Dermatology at [place] [address] [facility] [place] [address] Enoc Vázquez MD [address], [place] [address] Social History Tobacco Use Types Packs/Day Years Used Date Smoking Tobacco: Never Assessed Overall Financial Resource Strain (CARDIA) Answe r [...] AM EST Office Visit Radiation Oncology at [address] [address] Tyrese Fitzgerald MD [facility] [place] [address] documented as of this encounter Procedures Procedure Name Priority Date/Time Associated Diagnosis Comments SURGICAL PATHOLOGY REPORT Routine 04/19/2010 6:37 PM EST documented in this encounter Results * Surgical Pathology Report (04/19/2010 6:37 PM EST) Surgical Pathology Report [id number] ? Location: [facility] The signing pathologist has (i) examined the relevant preparation(s) for the specimen(s) and (ii) rendered or confirmed the diagnosis(es). . ?Pathology Surgical Pathology Final Report Clinical Information Specimen Submitted: A - (R) lateral neck, excision Clinical History: Atypical melanocytic proliferation, [id number] for excision Clinical Diagnosis: Same Report to: Enoc Vázquez MD, III [facility] Dermat[place], [place] ??[address] Gross Description Labeled/Fixativ e: ? R lateral neck, formalin. Qty/Size/Weight : ?Single, 2.8 x 1.7 x 0.5 cm. Tissue Description: ?? Ellipse of sharp skin with a 0.6-cm, macias-brown macule ?with adjacent 0.6-cm, pink scar. Sections/Proces sing: ??The specimen is inked and serially sectioned. ??The ?ends are submitted in (1); the remainder of the ?specimen submitted in (2-4). ??(T4) ??aje/SNS Microscopic Description Slides reviewed, microscopic description not recorded. Diagnosis Skin of right lateral neck, excision 1. ??Atypical lentiginous junctional melanocytic proliferation, and scar, ?? margins appear negative. ?? (see Comment). 2. Small incidental lentiginous compound nevus, margins appear negative. CR-0 04/21/10 AEP 04/21/10 Verified by: ? Blanca Wyman MD ?Dermatopathol ogist ?(Electronic Signature) The attending pathologist whose signature appears on this report has reviewed all diagnostic slides and has edited the gross and/or microscopic portion of the report in rendering the final pathologic diagnosis. Comment This is a borderline lesion. ??The residual findings are similar to biopsy [id number], and in our opinion, stop just short of the diagnosis of melanoma in situ. Drs. Crowder, Demetrio and Bonnie also examined the case and concur with the interpretation. LUKE ORLANDO 04/19/2010 6:37 PM EST Enoc Vázquez MD PATHOLOGY/CYTOLOGY Pema OROSCO LUKE ORLANDO documented in this encounter Visit Diagnoses Not on filedocumented in this encounter Care Teams Custom Wood Stair Builder Relationship 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
--- OUTSIDE RECORDS SUMMARY | 2024-02-10 15:19 | XMS_ITS | Encounter Summary ---
Author Organization [facility] Address [facility] [place] [address] Care Team Providers Care Gastroenterology Manager Name Role Phone Ilya Barrera MD Primary Care Provider [phone] Encounter Details Date Type Department Care Team (Latest Contact Info) Description 03/20/2011 12:01 PM EST - 03/20/2011 3:00 PM EST Hospital Encounter [place] [address] Milton Kerr MD [facility] [place] [address] Tong Ramos MD [facility] [place] [address] GERD (gastroesophageal reflux disease) Discharge Disposition: Home Social History Tobacco Use [...] Sign Reading Time Taken Comments Blood Pressure 161/101 03/20/2011 2:14 PM EST Pulse 65 03/20/2011 2:14 PM EST Temperature 36.5 ??C (97.7 ??F) 03/20/2011 1:24 PM ES T Respiratory Rate 16 03/20/2011 2:14 PM EST Oxygen Saturation 97% 03/20/2011 2:14 PM EST Inhaled Oxygen Concentration - - Weight - - Height - - Body Mass Index - - documented in this encounter Discharge Instructions * Discharge Instructions* Arturo Guzmán, EUSEBIO - 03/20/2011 2:16 PM EST Please call [phone] before 5 pm with problems, questions, or concerns. After 5 pm call [phone] and ask to speak with the plc controls engineer research environmental scientist. Discharge instructions reviewed with patient who expresses understanding. Please call [phone] before 5 pm with problems, questions, or concerns. After 5 pm call [phone] and ask to speak with the plc controls engineer research environmental scientist. Discharge instructions reviewed with patient who expresses understanding. * Patient Instructions* Tong Ramos MD - 03/20/2011 2:04 PM EST Please see Recommendations in the Provation procedure report which is documented in the procedural note in E-DH. * Attachments The following attachments cannot be sent through Care Everywhere. * UPPER GI ENDOSCOPY: WHAT TO EXPECT AT HOME (MAORI) documented in this encounter Medications at Time of Discharge Medication Sig Dispensed Refills Start Date End Date rabeprazole (ACIPHEX) 20 mg tablet Take 1 tablet by mouth 2 times daily. 30 tablet 02/06/2011 Brimonidine-Timolol (COMBIGAN) 0.2-0.5 % Drop Place 1 drop into both eyes 2 times daily. 11/29/2010 02/23/2021 terazosin (HYTRIN) 2 mg capsule Take 1 capsule by mouth nightly. 30 capsule 11/23/2010 09/30/2012 ALPRAZolam (XANAX) 0.25 mg tablet Take 0.25 mg by mouth as needed. 02/23/2021 pravastatin (PRAVACHOL) 20 mg tablet Take 40 mg by mouth daily. 02/23/2021 FLUoxetine (PROZAC WEEKLY) [address] capsule Take 90 mg by mouth. Every 10 days 02/23/2021 documented as of this encounter H&P Notes * Tong Ramos MD - 03/20/2011 2:03 PM EST H&P done prior to procedure and documented in the endoscopy report located in the Procedures tab in eD. documented in this encounter Miscellaneous Notes * Miscellaneous - Provider, Scanning - 03/20/2011 9:28 PM EST * OR Attestation - Tong Ramos MD - 03/20/2011 2:04 PM EST Attestation: Case Date: 03/20/2011 As the attending physician, I personally performed the entire procedure. TONG RAMOS MD 03/20/2011 documented in this encounter Plan of Treatment Upcoming Encounters Date Type Department Care Team (Late st Contact Info) Description 04/29/2024 11:00 AM EST Office Visit Radiation Oncology at [address] [address] Tyrese iFtzgerald MD [facility] [place] [address] documented as of this encounter Procedures Procedure Name Priority Date/Time Associated Diagnosis Comments UPPER GASTROINTESTINAL ENDOSCOPY,WITH BIOPSY SINGLE OR MULTIPLE Routine 03/21/2011 6:56 AM EST GERD (gastroesophageal reflux disease) SURGICAL PATHOLOGY REPORT Routine 03/20/2011 3:55 PM EST SPECIMEN TO PATHOLOGY Routine 03/20/2011 2:07 PM EST UPPER GI ENDOSCOPY Routine 03/20/2011 1: 47 PM EST UPPER GASTROINTESTINAL ENDOSCOPY,WITH BIOPSY SINGLE OR MULTIPLE (WRVU 2.39) 03/20/2011 1:19 PM EST GERD (gastroesophageal reflux disease) documented in this encounter Results * Surgical Pathology Report (03/20/2011 3:55 PM EST) Surgical Pathology Report [id number] ? Location: 4T The signing pathologist has (i) examined the relevant preparation(s) for the specimen(s) and (ii) rendered or confirmed the diagnosis(es). . ?Pathology Surgical Pathology Final Report Clinical Information Specimen Submitted: A - Distal esophagus R/O Otero's Clinical History/Diagnosis: PT with irregular Z line R/O short Otero's Gross Description Labeled/Fixative: ? Distal esophagus R/O Otero's, formalin. Qty/Size/Weight: ?Five, averaging 0.3 x 0.2 x 0.2 cm. Tissue Description: ?? Soft, pink-sharp, focally hemorrhagic tissues. Sections/Processing: ??(T1) ??aje/PPS Microscopic Description Slides reviewed, microscopic description not recorded. 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 No goblet cell metaplasia is seen. CR-0 03/22/11 AAS 03/22/11 Verified by: ? Akin Ewing MD ?Pathologist ?(Electronic Signature) The attending pathologist whose signature appears on this report has reviewed all diagnostic slides and has edited the gross and/or microscopic portion of the report in rendering the final pathologic diagnosis. LUKE ORLANDO 03/20/2011 3:55 PM EST Tong Ramos MD PATHOLOGY/CYTOLOGY O [place] Performing Organization Address City/State/[facility] Co de Phone Number LUKE ORLANDO * Specimen to Pathology (surgical or derm) (03/20/2011 2:07 PM EST) AP Specimen 03/20/2011 2:07 PM EST 03/20/2011 2:07 PM EST Narrative LUKE ORLANDO - 03/20/2011 2:07 PM EST Specimen requisition ordered. ??Separate Pathology report to follow Tong Ramos MD PATHOLOGY/CYTOLOGY O ANA LUISA LUKE ORLANDO * UPPER GI ENDOSCOPY (03/20/2011 1:47 PM EST) UPPER GI ENDOSCOPY [facility] Endoscopy Patient Name: Suman Warner ? Procedure Date: 03/20/2011 01:47:35 PM ? N: [id number] ? Date of : 1955 ? Age: 55 ? Procedure: ? Upper GI endoscopy Indications: ? Globus sensation on PPI ? Assess for GERD, Barrett placement Providers: ? Tong Ramos MD, Nadja Fuentes. ? EUSEBIO Nance, Nash Ling, ? Metal Patternmaker Apprentice Referring MD: ?Ilya Barrera MD Medicines: ? Midazolam 4 mg IV, Fentanyl 200 ? micrograms IV Complications: ? No immediate complications Procedure: ? Pre-Anesthesia Assessment: ? - Mental Status Examination: alert ? and oriented. Airway Examination: ? normal oropharyngeal airway and neck ? mobility. Respiratory Examination: ? clear to auscultation. CV ? Examination: normal. ? - ASA Grade Assessment: I - A normal, ? healthy patient. ? The procedure, indications, benefits, ? risks and alternatives were explained ? to the patient. Specifically ? discussed were potential ? complications including, but not ? limited to, bleeding, perforation, ? infection, missing a cancer, and ? adverse medication reactions. The ? Endoscope was introduced through the ? mouth, and advanced to the third part ? of duodenum. The patient tolerated ? the procedure well. The upper GI ? endoscopy was accomplished without ? difficulty. The patient tolerated the ? procedure well. ? Findings: ? The Z-line was irregular and was found 41 cm from the ? incisors. Biopsies were taken with a cold forceps for ? histology. ? There was no esophagitisA small hiatus hernia was ? present from 44-41 cm.The stomach was normal. The ? examined duodenum was normal. ? Upon completion of the exam a Barrett capsule was ? placed by nurse Nima ? Impression: ?- Z-line irregular, 41 cm from the ? incisors. ? - Hiatus hernia. ? - Normal stomach. ? - Normal examined duodenum. Recommendation: ?- Await pathology results. ? __ Tong Ramos MD Signed Date: 03/20/2011 02:15:32 PM Number of Addenda: 0 ? Note initiated on 03/20/2011 01:47:35 PM PROVATION 03/20/2011 1:47 PM EST Unknown GENERAL SURGICAL ORD ERABLES PROVATION documented in this encounter Visit Diagnoses Diagnosis GERD (gastroesophageal reflux disease) Esophageal reflux documented in this encounter Active and Recently Administered Medications Due to Daylight Saving Time, this section may contain times in both EDT and EST. PRN Medication Order 03/18/2011 03/19/2011 03/20/2011 fentaNYL 50mcg/mL injection (CANCELED) ONCE PRN, Starting on Tue 8/11 at 1352, Until Sat03/20/11 at 1822, Pain, Intra-Operative (Intra-Procedure), Routine 1352 (Given - Provid er: Nadja Nance RN)1355 (Given - Provider: Nadja Nance RN)1357 (Given - Provider: Nadja Nance RN) midazolam (VERSED) injection (CANCELED) ONCE PRN, Starting on Sat03/20/11 at 1353, Until Sat03/20/11 at 1822, Sleep, Intra-Operative (Intra-Procedure), Routine 1353 (Given - Provid er: Nadja Nance RN)1356 (Given - Provider: Nadja Nance RN) documented in this encounter Care Teams Gastroenterology Manager Relationship Specialty Start Date End Date Ilya Barrera MD PCP - General 04/04/10 08/25/12 documented as of this encounter
--- OUTSIDE RECORDS SUMMARY | 2024-02-10 15:19 | XMS_ITS | Encounter Summary ---
Author Organization [facility] [place] [address] Care Team Providers Care Retread Technician Name Role Phone Ilya Barrera MD Primary Care Provider [phone] Encounter Details Date Type Department Care Team (Late st Contact Info) Description 11/22/2010 [place] [address] Edie Hahn RN Social History Tobacco Use Types Packs/Day [...] AM EST Office Visit Radiation Oncology at [address] [address] Tyrese Fitzgerald MD [facility] [place] [address] documented as of this encounter Visit Diagnoses Not on filedocumented in this encounter Care Teams Retread Technician Relationship Specialty Start Date End Date Ilya Barrera MD PCP - General 04/04/10 08/25/12 documented as of this encounter
--- OUTSIDE RECORDS SUMMARY | 2024-02-10 15:19 | XMS_ITS | Encounter Summary ---
Author Organization [facility] Address [address] [place] [address] Care Team Providers Care Database Designer Name Role Phone Unavailable Primary Care Provider Unavailabl e Encounter Details Date Type Department Care Team (Late st Contact Info) Description 08/24/1999 Results Only [facility] [address] [place] [address] Rufino Cuba MD [address] [place] [address] Social History Tobacco Use Types Packs/Day Years Used Date Smoking Tobacco: Never Assessed Sex and Gender Information Value Date Recorded Sex Assigned at Not on file Gender Identity Not on file Sexual Orientation Not on file documented as of this encounter Plan of Treatment Not on file documented as of this encounter Procedures Procedure Name Priority Date/Time Associated Diagnosis Comments SURGICAL PATHOLOGY Routine 08/24/1999 15 :47 EDT documented in this encounter Results * SURGICAL PATHOLOGY (08/24/1999 15:47 EDT) Pathology Report: SURGICAL PATHOLOGY REPORT Reports generated via electronic interface contain original data; however they are lacking the format of the original report. Caution should be taken when reading/interpreti ng unformatted reports. Name: ? SUMAN WARNER ? Accession #: ? [id number] ? : ? 1955 (Age: 44) ??M ? Collect Date: ? 08/24/1999 ? Location: ?Receive Date: ? 08/24/1999 ? Provider: RUFINO CUBA MD Copy to: RUFINO MOREIRA MD ? Final Pathologic Diagnosis: MICROSCOPIC DIAGNOSIS: ? Soft tissue, skin and mastoid, excision: ? - Fragments of keratinized squamous epithelium with keratinous ? debris. ??See comment. ? Comment: COMMENT: ? Although the findings are not incompatible with cholesteatoma, ? there are no diagnostic foreign body giant cells or cholesterol ? clefts identified. ??The differential diagnosis also includes ? keratinous inclusion cyst. ??(Dr. Jama)/[facility] Document reviewed and electronically signed by: Conversion for ASHLY FAUSTIN Report ??Date: 08/29/1999 00:00 By the signature above, the attending physician certifies that he/she has personally conducted a gross and/or microscopic examination of the described specimens and rendered or confirmed the above diagnosis. Specimen(s) Received: TISSUE SUBMITTED: ? Mastoid contents & skin CLINICAL DATA: ? Chronic otitis & mastoiditis with cholesteatoma Gross Description: GROSS: ? Received in formalin labelled [place] and mastoid contents ? with skin are three fragments of sharp-brown biopsy tissue which ? range in size from 0.2 x 0.2 x 0.1 cm to 0.1 x 0.1 x less than ? 0.1 cm. ??All three are submitted intact in one cassette. ??( ? Emmy)/[facility] ? End of Report RAFFI GOODRICH 08/24/1999 15:4 7 EDT 08/24/1999 15:48 EDT Rufino Cuba MD PATHOLOGY ORDERABLES Performing Organization Address City/State/[facility] Co de Phone Number RAFFI [facility] [address] [place] [address] documented in this encounter Visit Diagnoses Not on filedocumented in this encounter
--- OUTSIDE RECORDS SUMMARY | 2024-02-10 15:19 | XMS_ITS | Encounter Summary ---
[place] [address] Care Team Providers Care Ad Trafficker Name Role Phone Ilya Barrera MD Primary Care Provider [phone] Reason for Visit * Reason Comments Verrucous Vulgaris Skin Lesion Encounter Details Date Type Department Care Team (Late st Contact Info) Description 11/30/2010 9:45 AM EDT Office Visit Dermatology [address] [place] [address] [address] [place], [place] [id number] Enoc Vázquez MD [address] [facility] [place] [address] Verruca vulgaris (Primary Dx); Acrochordons; Dysplastic nevus Social History Tobacco Use Types Packs/Day Years [...] Progress Notes * Enoc Vázquez MD - 11/30/2010 10:33 AM EDT Problems: 1. Followup verruca vulgaris, left fifth palmar finger. 2. Bothersome tags. 3. History of atypical lentiginous junctional melanocytic proliferation, right lateral neck. 4. History of atypical melanocytic proliferation, suspicious for melanoma in situ. Suman follows up for repeat treatment of his wart, and he also points out he has a number of tags he would like to have treated. They are present on the left and right base of the neck. His parents did not really ever have any of these. Physical examination shows that most of the verruca has peeled off, but he still has some base of verruca vulgaris left. He has a number of soft, fleshy tags, about 10 present between the left and right base of his neck laterally. Assessment and Plan: 1. Verruca vulgaris,left fifth finger, palmar aspect. 1a. LN2 times three applied to site. 1b. Now I would recommend followup on a p.r.n. basis. 2. Bothersome tags. 2a. After obtaining informed patient consent, the sites were anesthetized and electrodesiccated. 3. History of atypical lentiginous junctional melanocytic proliferation, right lateral neck. 3a. Return to the clinic in six months for a repeat check. 3b. History of atypical melanocytic proliferation, suspicious for melanoma in situ. 3c. We will plan [id number] followups for two years and then once yearly. cc: Ilya Barrera M.D. documented in this encounter Plan of Treatment Upcoming Encounters Date Type Department Care Team (Late st Contact Info) Description 04/29/2024 11:00 AM EST Office Visit Radiation Oncology at [address] [address] Tyrese Fitzgerald MD [facility] [place] [address] documented as of this encounter Visit Diagnoses Diagnosis Verruca vulgaris- Primary Viral warts, unspecified Acrochordons Unspecified hypertrophic and atrophic condition of skin Dysplastic nevus Benign neoplasm of skin, site unspecified documented in this encounter Care Teams Ad Trafficker Relationship Specialty Start Date End Date Ilya Barrera MD PCP - General 04/04/10 08/25/12 documented as of this encounter
--- OUTSIDE RECORDS SUMMARY | 2024-02-10 15:19 | XMS_ITS | Encounter Summary ---
Author Organization [facility] Address [facility] [place] [address] Care Team Providers Care Insurance Sales Assistant Name Role Phone Ilya Barrera MD Primary Care Provider [phone] Encounter Details Date Type Department Care Team (Late Contact Info) Description 04/19/2010 6:22 PM EST - 04/19/2010 11:59 PM EST [place] [address] Enoc Vázquez MD [address] [place] [address], [facility] [place] [address] Discharge Disposition: Home Social History Tobacco Use [...] EST Office Visit Radiation Oncology at [address] [address] Tyrese Fitzgerald MD [facility] [address] documented as of this encounter Visit Diagnoses Not on filedocumented in this encounter Care Teams Insurance Sales Assistant Relationship Specialty Start Date End Date Ilya Barrera MD PCP - General 04/04/10 08/25/12 documented as of this encounter
--- OUTSIDE RECORDS SUMMARY | 2024-02-10 15:19 | XMS_ITS | Encounter Summary ---
[place] [address] Care Team Providers Care Cotton Classer Aide Name Role Phone Ilya Barrera MD Primary Care Provider [phone] Reason for Visit * Reason Comments Skin Check 6 mo. Encounter Details Date Type Department Care Team (Late st Contact Info) Description 11/09/2010 8:30 AM EDT Office Visit Dermatology formerly [facility] [address] [place], [place] [address] Enoc Vázquez MD [address] [facility] [place] [address] Atypical nevus (Primary Dx) Social History Tobacco Use Types Packs/Day Years Used Date Smoking Tobacco: Never Assessed Sex and Gender Information Value Date Recorded Sex Assigned at Male 03/25/2021 10:08 AM EST Gender Identity Male 03/25/2021 10:08 AM EST Sexual Orientation Straight 03/25/2021 10 :08 AM EST documented as of this encounter Progress Notes * Enoc Vázquez MD - 11/09/2010 8:52 AM EDT Problems: 1. Followup atypical lentiginous junctional melanocytic proliferation, right lateral neck. 2. No personal or family history of melanoma. 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 He has been doing well since I last saw him in April at which time this was excised. He has not noted any new lesions of concern. He has been asymptomatic. He has a verruca on the base of his right fifth finger. Physical examination reveals good healing of the right lateral neck site without any evidence of recurrent pigmentation. Careful examination of the head, neck, chest, back, hands, arms, forearms, thighs and calves is otherwise benign. He does have a 3mm verruca vulgaris on the right fifth finger palmar aspect of that finger. Assessment & Plan: History of atypical melanocytic proliferation, suspicious for melanoma in situ. a. No evidence of recurrence. b. Patient doing well. c. No other lesions of concern. d. RTC in six months for repeat check. e. Continue sun avoidance precautions. Verruca vulgaris, right fifth finger palmar aspect. a. LN2 x3 applied to site. b. RTC in three weeks for repeat check may cancel if doing well. CC: Ilya Barrera MD documented in this encounter Plan of Treatment Upcoming Encounters Date Type Department Care Team (Late st Contact Info) Description 04/29/2024 11:00 AM EST Office Visit Radiation Oncology at [address] [address] Tyrese Fitzgerald MD [facility] [place] [address] documented as of this encounter Visit Diagnoses Diagnosis Atypical nevus- Primary Benign neoplasm of skin, site unspecified documented in this encounter Care Teams Cotton Classer Aide Relationship Specialty Start Date End Date Ilya Barrera MD PCP - General 04/04/10 08/25/12 documented as of this encounter
--- OUTSIDE RECORDS SUMMARY | 2024-02-10 15:19 | XMS_ITS | Encounter Summary ---
Author Organization [facility] [place] [address] Care Team Providers Care Certified Endoscopy Technician Name Role Phone Ilya Barrera MD Primary Care Provider [phone] Encounter Details Date Type Department Care Team (Late Contact Info) Description 07/13/2010 1:30 PM EST Office [place] [address] Jose Pelaez III, MD [facility] [place] [address] Discharge Disposition: Home Social History Tobacco Use [...] AM EST Office Visit Radiation Oncology at [address] [address] Tyrese Fitzgerald MD [facility] [place] [address] documented as of this encounter Visit Diagnoses Not on filedocumented in this encounter Care Teams Certified Endoscopy Technician Relationship Specialty Start Date End Date Ilya Barrera MD PCP - General 04/04/10 08/25/12 documented as of this encounter
--- OUTSIDE RECORDS SUMMARY | 2024-02-10 15:19 | XMS_ITS | Encounter Summary ---
Author Organization [facility] [place] [address] Care Team Providers Care Seafood Team Member Name Role Phone Ilya Barrera MD Primary Care Provider [phone] Reason for Visit * Reason Comments Skin Check Encounter Details Date Type Department Care Team (Late st Contact Info) Description 03/19/2011 3:00 PM EST Office Visit Dermatology [address] [facility] [address] [place] [address] Enoc Vázquez MD [address] [facility] [place] [address] Seborrheic keratosis, inflamed (Primary Dx) Social History Tobacco Use Types [...] Progress Notes * Enoc Vázquez MD - 03/19/2011 3:33 PM EST Problem: Bothersome skin lesions. Suman follows up after last being seen on 11/30. He has noticed some new lesions that he would like to have removed. They are often rubbed and irritated by chains, collars, et cetera. Physical examination reveals two irritated seborrheic keratoses on the right forehead above the right lateral eyebrow. He has an irritated soft fibroma on the left base of his neck and an irritated small seborrheic keratosis on the right base of his neck. Assessment & Plan: Bothersome skin lesions. a. After obtaining patient consent, the sites were anesthetized and removed with light C & D x1. b. Triple antibiotic ointment and Band-Aids placed. c. Wound care instructions and supplies given. d. RTC in six months for repeat check. RTC REMINDER: Six Months documented in this encounter Plan of Treatment Upcoming Encounters Date Type Department Care Team (Late st Contact Info) Description 04/29/2024 11:00 AM EST Office Visit Radiation Oncology at [address] [address] Tyrese Fitzgerald MD [facility] [place] [address] documented as of this encounter Visit Diagnoses Diagnosis Seborrheic keratosis, inflamed- Primary Inflamed seborrheic keratosis documented in this encounter Care Teams Seafood Team Member Relationship Specialty Start Date End Date Ilya Barrera MD PCP - General 04/04/10 08/25/12 documented as of this encounter
--- OUTSIDE RECORDS SUMMARY | 2024-02-10 15:19 | XMS_ITS | Encounter Summary ---
Author Organization [facility] [place] [address] Care Team Providers Care Stamp Mounter Name Role Phone Unavailable Primary Care Provider Unavailabl e Encounter Details Date Type Department Care Team (Late st Contact Info) Description 03/20/2010 1:15 PM EST Office Visit Dermatology [address] [facility] [address] [place] [address] Enoc Vázquez MD [address] [place] [address], [place] [address] Social History Tobacco Use Types Packs/Day Years [...] EST Office Visit Radiation Oncology at [address] [address] Tyrese Fitzgerald MD [facility] [place] [address] documented as of this encounter Visit Diagnoses Not on filedocumented in this encounter
--- OUTSIDE RECORDS SUMMARY | 2024-02-10 15:19 | XMS_ITS | Referral Summary ---
Author Organization [facility] Address [address] [place] [address] Care Team Providers Care Liquor Merchant Name Role Phone Ilya Barrera MD Primary Care Provider Social History Tobacco Use Types Packs/Day Years Used Date Smoking Tobacco: Never Assessed Sex and Gender Information Value Date Recorded Sex Assigned at Not on file Gender Identity Not on file Sexual Orientation Not on file Plan of Treatment Not on file Care Teams Liquor Merchant Relationship Specialty Start Date End Date Ilya Barrera MD PCP - General 03/21/15
--- OUTSIDE RECORDS SUMMARY | 2024-02-10 15:19 | XMS_ITS | Encounter Summary ---
Author Organization [facility] Address [facility] [place] [address] Care Team Providers Care Leading Firefighter Name Role Phone Ilya Barrera MD Primary Care Provider [phone] Encounter Details Date Type Department Care Team (Late Contact Info) Description 04/19/2010 9:30 AM EST Office Visit Dermatology [address] [place] [address] [address] [place] [address] Enoc Vázquez MD [address] [place] [address], [facility] [place] [address] Social History Tobacco Use Types Packs/Day Years [...] EST Office Visit Radiation Oncology at [address] [phone] Tyrese Fitzgerald MD [facility] [place] [address] documented as of this encounter Visit Diagnoses Not on filedocumented in this encounter Care Teams Leading Firefighter Relationship Specialty Start Date End Date Ilya Barrera MD PCP - General 04/04/10 08/25/12 documented as of this encounter
--- OUTSIDE RECORDS SUMMARY | 2024-02-10 15:19 | XMS_ITS | Encounter Summary ---
Author Organization [facility] Address [facility] [place] [address] Care Team Providers Care In Flight Crew Member Name Role Phone Ilya Barrera MD Primary Care Provider [phone] Reason for Referral * Consultation (Urgent) - Closed Specialty Diagnoses / Procedures Referred By Contac t Referred To Contact Gastroenterology Diagnoses GERD (gastroesophageal reflux disease) Laryngospasm Arnaud Linda MD [facility] [place] [address] [facility] [address] [place] [address] Referral ID Status Reason Start Date Expiration Date V isits Requested Visits Authorized [id number] Closed Assume Subset of Care 02/13/2011 08/12/2011 1 1 Reason for Visit * Reason Comments Follow-up Encounter Details Date Type Department Care Team (Late st Contact Info) Description 02/13/2011 9:30 AM EDT [place] [phone] Arnaud Linda MD [facility] [place] [address] GERD (gastroesophageal reflux disease) (Primary Dx); Laryngospasm Discharge Disposition: Home Social History Tobacco Use [...] Sign Reading Time Taken Comments Blood Pressure 154/91 02/13/2011 9:34 AM EDT Pulse 62 02/13/2011 9:34 AM EDT Temperature - - Respiratory Rate - - Oxygen Saturation - - Inhaled Oxygen Concentration - - Weight 119.7 kg (264 lb) 02/13/2011 9:34 AM EDT Height 177.8 cm (5' 10) 02/13/2011 9:34 AM EDT Body Mass Index 37.88 02/13/2011 9:34 AM EDT documented in this encounter Progress Notes * Arnuad Linda MD - 02/13/2011 10:04 AM EDT Subjective: Patient ID: Suman Warner is a 55 y.o. male. HPI Here in follow-up of frequent episodes of reflux associated with laryngospasm, globus sensation andoccasional dysphagia. He had a barium swallow which was within normal limits. There has been no improvement in his condition with doubling the dose of the ProTon pump inhibitor, in fact he thinks that things are worsening. He has episodes of laryngospasm rather frequently throughout the day. Review of Systems Negative or noncontributory Objective: Physical Exam Upper airway exam is unremarkable Assessment and Plan: Gastroesophageal reflux with frequent laryngospasm. Normal barium swallow. No response to increaseddose of proton pump inhibitor. Symptomatically he is worsening. I put in a consult to our gastroenterology department. No problem-specific visit notes found for this encounter. documented in this encounter Plan of Treatment Upcoming Encounters Date Type Department Care Team (Late st Contact Info) Description 04/29/2024 11:00 AM EST Office Visit Radiation Oncology at [address] [address] Tyrese Fitzgerald MD [facility] [address] Scheduled Referrals Name Type Priority Associated Diagnoses Order Schedule REFERRAL TO GASTROENTEROLOGY Outpatient Referral Routine GERD (gastroesophageal reflux disease) Laryngospasm Ordered: 02/13/2011 documented as of this encounter Visit Diagnoses Diagnosis GERD (gastroesophageal reflux disease)- Primary Esophageal reflux Laryngospasm Laryngeal spasm documented in this encounter Care Teams In Flight Crew Member Relationship Specialty Start Date End Date Ilya Barrera MD PCP - General 04/04/10 08/25/12 documented as of this encounter
--- OUTSIDE RECORDS SUMMARY | 2024-02-10 15:19 | XMS_ITS | Encounter Summary ---
Author Organization [facility] Address [facility] [place] [address] Care Team Providers Care Stock Wetter Name Role Phone Ilya Medina MD Primary Care Provider [phone] Encounter Details Date Type Department Care Team (Late st Contact Info) Description 03/13/2010 Orders Only Dermatology at [place] [address] [facility] [place] [address] Enoc Vázquez MD [address] [facility] [address], [place] [address] Social History Tobacco Use Types Packs/Day Years [...] EST Office Visit Radiation Oncology at [address] [address] Tyrese Fitzgerald MD [facility] [place] [address] documented as of this encounter Procedures Procedure Name Priority Date/Time Associated Diagnosis Comments SURGICAL PATHOLOGY REPORT Routine 03/13/2010 5:54 PM EDT documented in this encounter Results * Surgical Pathology Report (03/13/2010 5:54 PM EDT) Surgical Pathology Report [id number] ? Location: [facility] The signing pathologist has (i) examined the relevant preparation(s) for the specimen(s) and (ii) rendered or confirmed the diagnosis(es). . ?Pathology Surgical Pathology Final Report Clinical Information Specimen Submitted: A - (R) lateral neck, punch Clinical History: Atypical approximately 1-cm pigmented patch Clinical Diagnosis: R/O MM Report to: Enoc Vázquez MD, III [facility] Dermatology [place], [place] ??[address] Gross Description Labeled/Fixative: ? R lateral neck, formalin. Qty/Size/Weight: ?Single punch, 0.4 cm, excised to a depth of ?0.3 cm, brown to dark brown variegated skin. Sections/Processing : ??Bisected. ??(T1) ??vms/CJL Microscopic Description Slides reviewed, microscopic description not recorded. Diagnosis Skin of right lateral neck, punch biopsy: ??Atypical lentiginous intraepidermal melanocytic proliferation, extending to the peripheral specimen edges. ??See Comment. CR-0 Dictated by: ? Roc Jean-Baptiste MD ? Dermatopathology Fellow As the attending physician, I attest that I examined the histologic slides, and confirm Dr. Roc Jean-Baptiste's diagnosis. 03/15/10 [facility] 03/16/10 Verified by: ? Loco Crowder MD ?Dermatopathologis t ?(Electronic Signature) The attending pathologist whose signature appears on this report has reviewed all diagnostic slides and has edited the gross and/or microscopic portion of the report in rendering the final pathologic diagnosis. Comment Some of the stromal features are suggestive of regression. ??The findings are concerning for early/evolving melanoma in situ. ??Complete excision is recommended to allow for complete evaluation. ??Drs. Wyman and Bonnie concur. [place] [place] 03/13/2010 5:54 PM EDT Enoc Vázquez MD PATHOLOGY/CYTOLOGY [facility] [place] documented in this encounter Visit Diagnoses Not on filedocumented in this encounter Care Teams Stock Wetter Relationship 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
--- OUTSIDE RECORDS SUMMARY | 2024-02-10 15:19 | XMS_ITS | Encounter Summary ---
[place] [address] Care Team Providers Care Assistant Coach Name Role Phone Ilya Barrera MD Primary Care Provider [phone] Reason for Visit * Reason Onset Date Comments Results 04/25/2011 Encounter Details Date Type Department Care Team (Late st Contact Info) Description 04/25/2011 Telephone [place] [phone] Keshia Esqueda RN Results Social History Tobacco Use Types Packs/Day Years [...] Telephone Encounter - Keshia Esqueda RN - 04/25/2011 12:17 PM EST ge Per the note from papa villarreal there was no pathologic reflux on the study which was done on medication, so reflux oes not account for whatever his current sx are He could have a f/u with andrei when she is back or tracia ----- Message ----- From: Keshia Esqueda RN Sent: 04/24/2011 12:48 PM To: Neelima Herring RN, Togn Mathis MD Subject: Results of Barrett Patient looking for results. Can you help? Mai Attempted to reach patient. Left a message requesting a call back to discuss above. documented in this encounter Plan of Treatment Upcoming Encounters Date Type Department Care Team (Late st Contact Info) Description 04/29/2024 11:00 AM EST Office Visit Radiation Oncology at [address] [address] Tyrese Fitzgerald MD [facility] [place] [address] documented as of this encounter Visit Diagnoses Not on filedocumented in this encounter Care Teams Assistant Coach Relationship Specialty Start Date End Date Ilya Barrera MD PCP - General 04/04/10 08/25/12 documented as of this encounter
--- OUTSIDE RECORDS SUMMARY | 2024-02-10 15:19 | XMS_ITS | Encounter Summary ---
Author Organization [facility] Address [address] [place] [address] Care Team Providers Care Mobile Patrol Officer Name Role Phone Ilya Barrera MD Primary Care Provider [phone] Encounter Details Date Type Department Care Team (Late st Contact Info) Description 05/31/2020 Lab Requisition [facility] Pathology & Laboratory Medicine - [address] [address] Outr Resulting Lab, Provider Social History Tobacco Use Types Packs/Day Years Used Date Smoking Tobacco: Never Assessed Sex and Gender Information Value Date Recorded Sex Assigned at Not on file Gender Identity Not on file Sexual Orientation Not on file documented as of this encounter Plan of Treatment Not on file documented as of this encounter Procedures Procedure Name Priority Date/Time Associated Diagnosis Comments PSA TOTAL, DIAGNOSTIC Routine 05/30/2020 15:10 EST documented in this encounter Results * PSA TOTAL, DIAGNOSTIC (05/30/2020 15:10 EST) PSA 0.6 0.0 - 4.5 ng/mL 05/31/2020 17:26 EST [facility] Blood VENOUS BLOOD / Unknown 05/30/2020 15:10 EST 05/31/2020 16:15 EST Narrative [facility] - 05/31/2020 17:26 EST NOTE: Serum PSA concentration should not be interpreted as absolute evidence for the presence or absence of malignant disease. Assayed on Siemens ADVIA Centaur XPT using chemiluminescent technology.??Values obtained by using different assay methods cannot be used interchangeably. Provider Outr Resulting Lab CHEMISTRY & BLOOD GAS ORDERABLES [facility] [address] [place] [address] documented in this encounter Visit Diagnoses Not on filedocumented in this encounter Care Teams Mobile Patrol Officer Relationship Specialty Start Date End Date Ilya Barrera MD PCP - General 03/21/15 documented as of this encounter
--- OUTSIDE RECORDS SUMMARY | 2024-02-10 15:19 | XMS_ITS | Encounter Summary ---
Author Organization [facility] [place] [address] Care Team Providers Care Bisque Cleaner Name Role Phone Ilya Barrera MD Primary Care Provider [phone] Encounter Details Date Type Department Care Team (Late Contact Info) Description 11/29/2010 Abstract Dermatology [address] [facility] [address] [place] [address] Neelima Jensen RN Social History Tobacco Use Types Packs/Day [...] EST Office Visit Radiation Oncology at [address] [address] Tyrese Fitzgerald MD [facility] [place] [address] documented as of this encounter Visit Diagnoses Not on filedocumented in this encounter Care Teams Bisque Cleaner Relationship Specialty Start Date End Date Ilya Barrera MD PCP - General 04/04/10 08/25/12 documented as of this encounter
--- OUTSIDE RECORDS SUMMARY | 2024-02-10 15:19 | XMS_ITS | Encounter Summary ---
Author Organization [facility] [place] [address] Care Team Providers Care Wood Boatbuilder Name Role Phone Unavailable Primary Care Provider Unavailabl e Encounter Details Date Type Department Care Team (Late Contact Info) Description 03/13/2010 4:15 PM EDT Office Visit Dermatology [address] [facility] [address] [place] [address] Enoc Vázquez MD [address] [place] [address], [facility] [place] [address] Social History Tobacco Use Types Packs/Day Years [...] EST Office Visit Radiation Oncology at [address] [address] Tyrese Fitzgerald MD [facility] [place] [address] documented as of this encounter Visit Diagnoses Not on filedocumented in this encounter
--- OUTSIDE RECORDS SUMMARY | 2024-02-10 15:19 | XMS_ITS | Clinical Summary ---
Author Organization [facility] Address [address] [place] [address] Care Team Providers Care Operational Risk Manager Name Role Phone Ilya Barrera MD Primary Care Provider [phone] Social History Tobacco Use Types Packs/Day Years Used Date Smoking Tobacco: Never Assessed Sex and Gender Information Value Date Recorded Sex Assigned at Not on file Gender Identity Not on file Sexual Orientation Not on file Plan of Treatment Health Maintenance Due Date Last Done Comments Hepatitis C Screen 1955 RSV Immunization ( o r 60+ Years) (1 - 1-dose 60+ series) 2016 Fall Risk Screening 2021 COVID-19 Vaccine ( season) 2023 Care Teams Operational Risk Manager Relationship Specialty Start Date End Date Ilya Barrera MD PCP - General 03/21/15
--- OUTSIDE RECORDS SUMMARY | 2024-02-10 15:19 | XMS_ITS | Encounter Summary ---
Author Organization [facility] [place] [address] Care Team Providers Care Wedding Makeup Artist Name Role Phone Ilya Barrera MD Primary Care Provider Encounter Details Date Type Department Care Team (Late Contact Info) Description 04/17/2010 11:30 AM EST [place] [address] Arnaud Linda MD [facility] [place] [address] Discharge Disposition: Home Social History Tobacco Use [...] EST Office Visit Radiation Oncology at [address] [phone] Tyrese Fitzgerald MD [facility] [place] [address] documented as of this encounter Visit Diagnoses Not on filedocumented in this encounter Care Teams Wedding Makeup Artist Relationship Specialty Start Date End Date Ilya Barrera MD PCP - General 04/04/10 08/25/12 documented as of this encounter
--- OUTSIDE RECORDS SUMMARY | 2024-02-10 15:19 | XMS_ITS | Encounter Summary ---
Author Organization [facility] [place] [address] Care Team Providers Care Academic Records Specialist Name Role Phone Ilya Barrera MD Primary Care Provider [phone] Encounter Details Date Type Department Care Team (Late Contact Info) Description 03/13/2010 [place] [address] Enoc Pathak MD [address] [place] [address], [facility] [place] [address] Social History Tobacco Use Types Packs/Day Years [...] EST Office Visit Radiation Oncology at [address] [address] Tyrese Fitzgerald MD [facility] [address] [place] [address] documented as of this encounter Procedures Procedure Name Priority Date/Time Associated Diagnosis Comments SURGICAL PATHOLOGY REPORT Routine 03/13/2010 5:54 PM EDT documented in this encounter Results * PATHOLOGY SURGICAL PATHOLOGY FINAL REPORT (03/13/2010 5:54 PM EDT) Surgical Pathology Report ? [facility] ? Provider: ?? ENOC PATHAK ?? Pt. Name: ?? SUMAN WARNER ? Acc #: ?[id number] ? Pt. ? Col Date: ?? 03/13/2010 ? /Sex: ?1955,(54 years),Male ? Rec Date: ?? 03/14/2010 ? LOC: ?[facility] ? SURGICAL PATHOLOGY ? ---Pathologic Diagnosis--- ? Skin of right lateral neck, punch biopsy: ? Atypical lentiginous intraepidermal melanocytic proliferation, extending ? to the peripheral specimen edges. ??See Comment. ? CR-0 ? Dictated by: ? Roc Jean-Baptiste MD ?Dermatopathology Fellow ? As the attending physician, I attest that I examined the histologic slides, ? and confirm Dr. Roc Jean-Baptiste's diagnosis. ? 03/15/10 ? [facility] ? 03/16/10 Verified by: ? Loco Crowder MD ? Dermatopathologist ? (Electronic Signature) ? The attending pathologist whose signature appears on this report has ? reviewed all diagnostic slides and has edited the gross and/or ? microscopic portion of the report in rendering the final pathologic ? diagnosis. ? ---Comment--- ? Some of the stromal features are suggestive of regression. 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 ??Complete excision is ? recommended to allow for complete evaluation. ??Drs. Wyman and Bonnie ? concur. ? ---Microscopic Description--- ? Slides reviewed, microscopic description not recorded. ? ---Gross Description--- ? Labeled/Fixative: ? R lateral neck, formalin. ? Qty/Size/Weight: ?Single punch, 0.4 cm, excised to a depth of ? 0.3 cm, brown to dark brown variegated skin. ? Sections/Processing: ??Bisected. ??(T1) ??vms/CJL ? ---Clinical Information--- ? Specimen Submitted: ? A - (R) lateral neck, punch ? Clinical History: ? [facility] ? Provider: ?? ENOC PATHAK ?? Pt. Name: ?? SUMAN WARNER ? Acc #: ?[id number] ? Pt. ? Col Date: ?? 03/13/2010 ? /Sex: ?1955,(54 years),Male ? Rec Date: ?? 03/14/2010 ? LOC: ?[facility] ? SURGICAL PATHOLOGY ? Atypical approximately 1-cm pigmented patch ? Clinical Diagnosis: ? R/O MM ? Report to: ? Enoc Pathak MD, III ? [facility] ? Dermatology ? [place], [place] ??[address] [place] 03/13/2010 5:54 PM EDT Enoc Pathak MD PATHOLOGY/CYTOLOGY O RDER[facility]LES [place] documented in this encounter Visit Diagnoses Not on filedocumented in this encounter Care Teams Academic Records Specialist Relationship Specialty Start Date End Date Ilya Barrera MD PCP - General 04/04/10 08/25/12 documented as of this encounter
--- OUTSIDE RECORDS SUMMARY | 2024-02-10 15:19 | XMS_ITS | Encounter Summary ---
Author Organization [facility] [place] [address] Care Team Providers Care Chiropractor Assistant Name Role Phone Unavailable Primary Care Provider Unavailabl e Encounter Details Date Type Department Care Team (Late st Contact Info) Description 03/31/2010 3:45 PM EST [place] [address] Arnaud Linda MD [facility] [place] [address] Social History Tobacco Use Types Packs/Day Years [...] AM EST Office Visit Radiation Oncology at [address] [address] Tyrese Fitzgerald MD [facility] [place] [address] documented as of this encounter Visit Diagnoses Not on filedocumented in this encounter
--- OUTSIDE RECORDS SUMMARY | 2024-02-10 15:19 | XMS_ITS | Encounter Summary ---
Author Organization [facility] Address [facility] [place] [address] Care Team Providers Care Graphite Mill Operator Name Role Phone Ilya Barrera MD Primary Care Provider [phone] Reason for Visit * Reason Comments Follow-up Encounter Details Date Type Department Care Team (Late st Contact Info) Description 02/06/2011 9:45 AM EDT [place] [phone] Arnaud Linda MD [facility] [address] Chronic serous otitis media (Primary Dx); Dysphagia Discharge Disposition: Home Social History Tobacco [...] Sign Reading Time Taken Comments Blood Pressure 130/86 02/06/2011 9:50 AM EDT Pulse - - Temperature - - Respiratory Rate - - Oxygen Saturation - - Inhaled Oxygen Concentration - - Weight 120 kg (264 lb 8.8 oz) 02/06/2011 9:50 AM EDT Height 177.8 cm (5' 10) 02/06/2011 9:50 AM EDT Body Mass Index 37.96 02/06/2011 9:50 AM EDT documented in this encounter Progress Notes * Arnaud Linda MD - 02/06/2011 4:43 PM EDT The patient's clinical history is reviewed and a complete examination is accomplished. The physicalfindings are confirmed. The resident's assessment and plan was formulated with my guidance and approval. * Arvind Bui MD - 02/06/2011 10:28 AM EDT Subjective: Patient ID: Suman Warner is a 55 y.o. Male. HPI Here in follow-up of tympanostomy tube placed on the right 2months ago. He is s/p revision mastoidectomy, right ear 1 1/2 years ago. Since the tube was put in he has not noted any problems with the right ear. No drainage. Feels hearing is about like normal. Has been wearing his hearing aid without problems. Over the last few years he has noted has noted globus sensation and the frequent throat clearing. Also has frequent awakenings with choking and coughing when he sleeps in his recliner. Has trouble swallowing dry solids requiring liquid to wash it down. Has a history of GERD treated with rabeprazole. Denies sinus complaints or nasal congestion. Review of Systems Negative or noncontributory Objective: Physical Exam The ears were examined with the operating microscope. On the right the small mastoid cavity is freeof debris. The PE tube is in place and patent. On the left, of a large mastoid cavity is cleaned ofsome dried squamous debris. Nose- healthy mucosa w/out drainage. Septum midline Oral cavity- no lesions, good tongue mobility Oropharynx- symmetric palate elevation, mucosa healthy and pink. Procedure Note: (I performed the procedure in conjunction with the attending physician) The patient was topically anesthesized and decongested in bilateral nares with 1:1 lidocaine and privine. A flexible scope was then passed into the nare. Findings: - normal nasal mucosa - normal nasopharynx - normal appearing base of tongue and valleculae - normal appearing epiglottis - normal appearing vocal cords with symmetric movemement bilaterally. Thick mucus which cleared with cough. - normal appearing piriform sinuses Assessment and Plan: Right PE tube in place and functioning. GERD-No anatomic abnormalities on flexible laryngoscopy. His sx (globus, throat clearing, coughing when sleeping sitting up)may all be related to reflux, but further workup is indicated. -Double rabeprazole to twice daily -Barium swallow -rtc after swallow is done. -May warrant referral to GI if sx persist. HPI Review of Systems Physical Exam documented in this encounter Plan of Treatment Upcoming Encounters Date Type Department Care Team (Late st Contact Info) Description 04/29/2024 11:00 AM EST Office Visit Radiation Oncology at [address] [address] Tyrese Fitzgerald MD [facility] [place] [address] documented as of this encounter Results * XR Fluoro Barium [...] barium tablet without difficulty. ?? Procedure Note eDonna Marin MD - 02/08/2011 BARIUM SWALLOW: INDICATION: [...] documented in this encounter Visit Diagnoses Diagnosis Chronic serous otitis media- Primary Simple or unspecified chronic serous otitis media Dysphagia Dysphagia, unspecified Dysphagia Dysphagia, unspecified documented in this encounter Care Teams Graphite Mill Operator Relationship Specialty Start Date End Date Ilya Barrera MD PCP - General 04/04/10 08/25/12 documented as of this encounter
--- OUTSIDE RECORDS SUMMARY | 2024-02-10 15:19 | XMS_ITS | Encounter Summary ---
Author Organization [facility] [place] [address] Care Team Providers Care Practical Nurse Name Role Phone Imani Thompson MD Primary Care Provider [phone] Encounter Details Date Type Department Care Team (Late st Contact Info) Description 03/20/2011 1:00 PM EST Office Visit [place] [phone] CLINIC, Neelima Walker RN GERD (gastroesophageal reflux disease) (Primary Dx) Discharge Disposition: Home Social History [...] as of this encounter Progress Notes * Arvind Vaca MD - 04/09/2011 3:36 PM EST Subjective: Patient ID: Suman Warner is a 55 y.o. male. HPI Review of Systems Objective: Physical Exam Assessment and Plan: No problem-specific visit notes found for this encounter. [id number] WIRELESS pH CAPSULE PLACED IN MOTILITY LAB Suman Warner Male, 55 yrs, 1955 PCP: IMANI THOMPSON STUDY DATES: 03/20/11 to 03/22/11 INTERPRETATION DATE: 03/31/11 PROVIDER: Arvind Vaca, [place] ([id number]) INDICATION Lump in throat thought secondary to acid reflux. Note that upper endoscopy on 03/20/11 was normal. NOTE: This study was performed on 20 mg of AcipHex each day. METHODS After landmarks were visualized and measured, in a supervised setting, and after informed consent, a Barrett pH telemetry capsule was deployed orally and attached to the esophageal wall at 5 cm above the upper border of the LES. No complications were noted during this procedure. FINDINGS Visual inspection of the study shows fluctuations in pH values throughout the study consistent witha technically adequate study. DAY ONE Total Number of Reflux Episodes: 63 Upright Position: 30 Supine Position: 33 Reflux Episodes Longer than Five Minutes: 0 Upright: * Supine: * Duration of Longest Episode: 3 minutes, upright position Total Distal Esophageal Acid Exposure Time: 29 minutes. Percent of Total Recording Time: 2.2% Percent of Upright Recording Time: 2.6% Percent of Supine Recording Time: 1.7% DAY TWO Total Number of Reflux Episodes: 1 Upright Position: 1 Supine Position: 0 Reflux Episodes Longer than Five Minutes: * Upright: * Supine: * Duration of Longest Episode: less than 1 minute Total Distal Esophageal Acid Exposure Time: approximately 1 minute. Percent of Total Recording Time: 0.1% Percent of Upright Recording Time: 0.1% Percent of Supine Recording Time: 0% Pxawl-Dwobf-Hgnf (Total) Fraction of Time with pH Less Than 4%: 1.1% Calculated DeMeester Score (normal values are up to 14.72) Day One Calculated DeMeester Score: 10.4 Day Two Calculated DeMeester Score: 0.4 Zknsv-Wwbex-Qlqj DeMeester Score (Total): 5.4 Day One Symptoms Association Probability (SAP) for Heartburn: *% Regurgitation: 18% Chest pain: 18% Other: *% Day Two SAP for Heartburn: *% Regurgitation: 0 Chest pain: *% Other: *% Hjzwr-Bxyub-Rhsm SAP for Heartburn: *% Regurgitation: 10% Chest pain: 10% Other: *% IMPRESSION During this recording period, while the patient was on 20 mg of AcipHex each day, there was no evidence of pathologic acid reflux into the distal esophagus on either day one or day two. Symptom association was poor. NORMAL VALUES FOR WIRELESS pH CAPSULE STUDY 1. Total number of reflux episodes = less than 50. 2. Number of episodes longer than 5 minutes = less than 3. 3. Acid exposure time Total = less than 5.3% Upright = less than 6.3% Supine = less than 1.2%. ADDENDUM SAP expresses the likelihood that a specific symptom, i.e., heartburn, regurgitation, chest pain, is associated with acid reflux. By convention, SAP values greater than 95% are positive. Arvind Vaca MD, PhD senior escrow officer Section of Gastroenterology [place] [address] V: [phone] F: [phone] BEL/cuco EC/CC: Imani Thompson MD [address] So[address] [place] [address] * Neelima Herring RN - 03/20/2011 2:09 PM EST 1400 Barrett capsule deployed at 35 cm below incisors following EGD performed by Dr. Mathis. Study is being done on Aciphex 20 mgm daily according to patient. First pH is 7.0. Will mail back cigarette tester and diary in view of distance involved. documented in this encounter Miscellaneous Notes * Miscellaneous - David, Fitness Specialist - 03/20/2011 4:49 PM EST documented in this encounter Plan of Treatment Upcoming Encounters Date Type Department Care Team (Late st Contact Info) Description 04/29/2024 11:00 AM EST Office Visit Radiation Oncology at [address] [phone] Tyrese Fitzgerald MD [facility] [place] [address] documented as of this encounter Visit Diagnoses Diagnosis GERD (gastroesophageal reflux disease)- Primary Esophageal reflux documented in this encounter Care Teams Practical Nurse Relationship Specialty Start Date End Date Imani Thompson MD PCP - General 04/04/10 08/25/12 documented as of this encounter
--- OUTSIDE RECORDS SUMMARY | 2024-02-10 15:19 | XMS_ITS | Encounter Summary ---
Author Organization [facility] Address [facility] [place] [address] Care Team Providers Care Paper Reeler Name Role Phone Ilya Barrera MD Primary Care Provider [phone] Encounter Details Date Type Department Care Team (Late st Contact Info) Description 03/20/2011 1:00 PM EST - 03/20/2011 1:30 PM EST Surgery [place] [phone] Tong Ramos MD [facility] [place] [address] UPPER GASTROINTESTINAL ENDOSCOPY,WITH BIOPSY SINGLE OR MULTIPLE (WRVU 2.39) Social History Tobacco Use Types Packs/Day Years [...] encounter Discharge Instructions * Discharge Instructions* Arturo Guzmán RN - 03/20/2011 2:16 PM EST Please call [phone] before 5 pm with problems, questions, or concerns. After 5 pm call [phone] and ask to speak with the vascular technologist validation software facilitator. Discharge instructions reviewed with patient who expresses understanding. Please call [phone] before 5 pm with problems, questions, or concerns. After 5 pm call [phone] and ask to speak with the vascular technologist validation software facilitator. Discharge instructions reviewed with patient who expresses understanding. * Patient Instructions* Tong Ramos MD - 03/20/2011 2:04 PM EST Please see Recommendations in the Provation procedure report which is documented in the procedural note in E-DH. * Attachments The following attachments cannot be sent through Care Everywhere. * UPPER GI ENDOSCOPY: WHAT TO EXPECT AT HOME (AZERI) documented in this encounter Medications at Time [...] AM EST Office Visit Radiation Oncology at [address] [phone] Tyrese Fitzgerald MD [facility] [place] [address] documented as of this encounter Procedures Procedure [...] Surgical Pathology Report (03/20/2011 3:55 PM EST) Pathologist [facility] Surgical Pathology Report [id number] ? Location: 4T The signing pathologist has [...] report in rendering the final pathologic diagnosis. LAURAKELLY DHILLONMEL 03/20/2011 3:55 PM EST Tong Ramos MD PATHOLOGY/CYTOLOGY O RDERABLES [facility] * Specimen to Pathology (surgical or derm) (03/20/2011 2:07 PM EST) AP Specimen 03/20/2011 2:07 PM EST 03/20/2011 2:07 PM EST Narrative [facility] ROLANDO - 03/20/2011 2:07 PM EST Specimen requisition ordered. ??Separate Pathology report to follow Tong Ramos MD PATHOLOGY/CYTOLOGY Pema OROSCO [facility] * UPPER GI ENDOSCOPY (03/20/2011 1:47 PM EST) UPPER GI ENDOSCOPY [facility] Endoscopy Patient Name: Suman Warner ? Procedure Date: 03/20/2011 01:47:35 PM ? [facility]: [id number] ? Date of : 1955 ? Age: 55 ? Procedure: ? Upper GI endoscopy Indications: ? Globus sensation on PPI ? Assess for GERD, Barrett placement Providers: ? Tong Ramos MD, Nadja Hudson ? Lee Ann, EUSEBIO, Nash Ling, ? Gripper Attacher Referring MD: ?Ilya Barrera MD Medicines: ? [...] Barrett capsule was ? placed by nurse Herring ? Impression: ?- Z-line irregular, 41 cm [...] Diagnosis GERD (gastroesophageal reflux disease) Esophageal reflux GERD (gastroesophageal reflux disease) Esophageal reflux documented in this encounter Administered Medications Inactive Administered Medications - up to 3 most recent administrations Medication Order MAR Action Action Date Dose Rate Site fentaNYL 50mcg/mL injection ONCE PRN, Starting on 03/20/11 at 1352, Until Sat03/20/11 at 1822, Pain, Intra-Operative (Intra-Procedure), Routine Given 03/20/2011 1:57 PM EST 50 mcg Right Arm Given 03/20/2011 1:55 PM EST 50 mcg Ri ght Arm Given 03/20/2011 1:52 PM EST 100 mcg Ri ght Arm midazolam (VERSED) injection ONCE PRN, Starting on Sat03/20/11 at 1353, Until Sat03/20/11 at 1822, Sleep, Intra-Operative (Intra-Procedure), Routine Given 03/20/2011 1:56 PM EST 2 mg Right Arm Given 03/20/2011 1:53 PM EST 2 mg Ri ght Arm documented in this encounter Active and Recently Administered Medications Due to Daylight Saving Time, this section may contain times in both EDT and EST. PRN Medication Order 03/18/2011 03/19/2011 03/20/2011 fentaNYL 50mcg/mL injection (CANCELED) ONCE PRN, Starting on Sat03/20/11 at 1352, Until Sat03/20/11 at 1822, Pain, [...] RN) documented in this encounter Care Teams Paper Reeler Relationship Specialty Start Date End Date Ilya Barrera MD PCP - General 04/04/10 08/25/12 documented as of this encounter
--- OUTSIDE RECORDS SUMMARY | 2024-02-10 15:19 | XMS_ITS | Encounter Summary ---
Author Organization [facility] Address [facility] [place] [address] Care Team Providers Care Economics Lecturer Name Role Phone Imani Thompson MD Primary Care Provider [phone] Reason for Visit * Reason Comments Gastroesophageal Reflux Encounter Details Date Type Department Care Team (Late st Contact Info) Description 02/21/2011 8:30 AM EDT Office Visit [place] [phone] Ruthie Braden MD [facility] DR GASTROENTEROLOGY [place] [address] GERD (gastroesophageal reflux disease) (Primary Dx) Discharge [...] Sign Reading Time Taken Comments Blood Pressure 141/88 02/21/2011 8:26 AM EDT Pulse 72 02/21/2011 8:26 AM EDT Temperature - - Respiratory Rate - - Oxygen Saturation - - Inhaled Oxygen Concentration - - Weight 119.5 kg (263 lb 6.4 oz) 02/21/2011 8:26 AM EDT Height 177.8 cm (5' 10) 02/21/2011 8:26 AM EDT Body Mass Index 37.79 02/21/2011 8:26 AM EDT documented in this encounter Progress Notes * Milton Kerr MD - 02/21/2011 3:25 PM EDT Please refer to Dr. Braden's note for details of this visit. I independently interviewed and examined Mr. Warner and I confirm Dr. Braden's history and physical exam as documented in her note. The diagnostic and therapeutic plan was discussed and I agree with the plan of care. * Ruthie Braden MD - 02/21/2011 8:26 AM EDT Gastroenterology and Hepatology Consultation Patient Suman Warner [address] [facility] [phone] [address] Arnaud Linda MD ENT Primary Care Physician IMANI THOMPSON MD [facility] [address] [place] [facility] [place] [address] CC: GERD HPI: 55 y.o. gentleman reports that he has this constant tigling in the back of his throat. He has dry heaves all the time. He feels there is something in the back of his throat. This has been going on for three years. It was rare at first, but in the past month if has been going on for 3-4 times per week. The lump in the back of his throat sometimes keep him from swallowing. It also keeps him up at night. At night he wakes up and has to catch his breath. In bed he lies on his side and gasps for air. ENT did a laryngoscopy and there were no abnormalities. He also had a Barium study and it was normal. 4 years ago he used to have bad heartburn and abdominal pain. He was evaluated for this problem. Hehad an EGD 4 years ago (done at [facility]) and he was found to have a lot of acid in his stomach. He was started on Aciphex and his heartburn and epigastric pain resolved. Denies taking any antihistamines or decongestants. No weight loss. He is able to eat with no difficulty. No early satiety No abdominal pain. Review of Systems: No fever or chills. He does not snore. But he wakes up once a months feeling short of breath. He has never had a sleep study. No chest pain or SOB. + cough. He has had it for the past week for so. He had a cold 10yrs ago. Reports that his stools are soft. He has about 2-3 BMs per day. No blood in his stools. He had a normal colonoscopy 4 yrs ago. He was having loose stools back then. He had two polyps, but they were not precancerous . He was told to return in 10yrs. No joint aches or skin rashes. No problem urinating. +dibbling in the past. +anxiety attacks for about 30yrs. He takes prozac for this. Past Medical History: #Anxiety #GERD Past Surgical History: Tonsillectomy - 1961 Mastoid Operation b/l Family History: Grandfather (P): 80s DM Grandmother (P): [place] (in her mid 80s) Grandmother (M): [place] (in her 70s) Mom: Emphysema. at 67 Dad: brain tumor. at 59 Two brothers and 4 sisters: no medical problems that he is aware of. Social history: No smoking. No chewing tobacco. No ETOH. Lives with He has three healthy sons. 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 No drug use. Lives in [place]. Physical exam: BP 141/88 Pulse 72 Ht 177.8 cm (5' 10) Wt 119.477 kg (263 lb 6.4 oz) BMI 37.79 kg/m2 Obese gentleman. Very friendly. NAD PERRL, EOMI, Anicteric. No oral lesion. No pharyngeal erythema. RRR No M CTA Abd: obese, Soft, NT, ND. No obvious HSM Ext: no edema Skin: no rashes. LABS: No labs Assessment and Plan: Mr. Warner is a 55yo gentleman with PMH of anxiety, GERD, ear infections, with worsening symptomsof globus sensation. ENT evaluation has not revealed a cause for his symptoms. While he reports occasional dysphagia with the globus sensation, this is a transient issue. He has no difficulty with solids or liquids. He has gained 15lbs in the past 4yrs. His heartburn has been well controlled with Aciphex 20mg daily. We discussed with Mr. Warner that while GERD has been postulated as a potential cause for laryngospasm, the pathophysiology is unclear. His barium swallow did not reveal any structural abnormalities that may explain his symptoms. His symptoms are worse in the past month and he does report a recent cold and most recently postnasal drip, but no congestion. An upper respiratory infection or perhaps allergies could explain his recent worsening symptoms. Given his history of anxiety, it is possible that his globus sensation may be functional. Since he has had a history of heartburn evaluating its control while on Aciphex is reasonable. He has not noted any benefit with higher doses of PPI, thus we can cut back to his usual dose of 20mg daily. - We plan to perform an EGD with Barrett pH monitoring. The test will be done on Aciphex 20mg as thisdose has controlled his heartburn for the past 20yrs. - Consider a trial of antihistamines. - Mr. Warner reports waking up from sleep (usually after falling asleep in his recliner) needs tocatch his breath. He certainly has risk factors for sleep apnea. He may benefit from a sleep study.Will defer to his primary care provider. - Discussed importance of weight loss as obesity can worsen heartburn. Aura Braden MD Gastroenterology and Hepatology Fellow documented in this encounter Plan of Treatment Upcoming Encounters Date Type Department Care Team (Late st Contact Info) Description 04/29/2024 11:00 AM EST Office Visit Radiation Oncology at [address] [phone] Tyrese Fitzgerald MD [facility] DR [place] [address] documented as of this encounter Visit Diagnoses Diagnosis GERD (gastroesophageal reflux disease)- Primary Esophageal reflux documented in this encounter Care Teams Economics Lecturer Relationship Specialty Start Date End Date Imani Thompson MD PCP - General 04/04/10 08/25/12 documented as of this encounter
--- OUTSIDE RECORDS SUMMARY | 2024-02-10 15:19 | XMS_ITS | Encounter Summary ---
Author Organization [facility] Address [address] [place] [address] Care Team Providers Care Vine Fruit Farming Supervisor Name Role Phone Unavailable Primary Care Provider Unavailabl e Encounter Details Date Type Department Care Team (Late st Contact Info) Description 2006 Results Only [facility] [address] [place] [address] Jesse Sanchez MD [address] [place] [phone] Social History Tobacco Use Types Packs/Day Years Used Date Smoking Tobacco: Never Assessed Sex and Gender Information Value Date Recorded Sex Assigned at Not on file Gender Identity Not on file Sexual Orientation Not on file documented as of this encounter Plan of Treatment Not on file documented as of this encounter Procedures Procedure Name Priority Date/Time Associated Diagnosis Comments SURGICAL PATHOLOGY Routine 2006 0:00 EST documented in this encounter Results * SURGICAL PATHOLOGY (2006 0:00 EST) Pathology Report: SURGICAL PATHOLOGY REPORT Reports generated via electronic interface contain original data; however they are lacking the format of the original report. Caution should be taken when reading/interpreti ng unformatted reports. Name: ? SUMAN WARNER ? Accession #: ? [id number] ? : ? 1955 (Age: 51) ??M ? Collect Date: ? 2006 ? Location: ? [facility] ? Receive Date: ? 2006 ? Provider: JESSE SANCHEZ MD Copy to: IMANI THOMPSON MD ? Final Pathologic Diagnosis: A. ?Stomach, biopsy: 1. ?Antral and oxyntic junctional-type mucosa with minimal chronic inflammation and reactive/regenerat edwin features. ?? 2. ?No Helicobacter pylori-like organisms identified on H & E stained sections. B. ?Gastroesophageal junction, biopsy: 1. ?Gastric-type mucosa with chronic inflammation and reactive changes. 2. ?No Helicobacter pylori-like organisms identified on H & E stained sections. 3. ? No intestinal metaplasia identified. C. ?Colon, rectosigmoid, polyp, biopsy: ? 1. ?? Hyperplastic polyp, inflamed, with cautery artifact. Document reviewed and electronically signed by: Patricia Barroso MD Report ??Date: 05/31/2006 08:10 By the signature above, the attending physician certifies that he/she has personally conducted a gross and/or microscopic examination of the described specimens and rendered or confirmed the above diagnosis. Specimen(s) Received: A. ?Gastric bx B. ? Bx EG junction C. ? Rectosigmoid polyp Clinical History: ? Reflux & for screening colonoscopy Gross Description: ? Received in Hollande's fixative labelled [place] and gastric bx are two irregular portions of sharp-pink soft tissue averaging 0.2 x 0.1 x 0.1 cm. The specimen is submitted in toto as (A). Received in Hollande's fixative labelled [place] and bx EG junction is an irregular 0.2 x 0.2 x 0.1 cm portion of sharp-pink soft tissue. ??The specimen is submitted intact as (B). Received in Hollande's fixative labelled [place] and rectosigmoid polyp is a 0.3 x 0.1 x 0.1 cm sharp-pink polypoid portion of soft tissue. ??The specimen is submitted intact as (C). ??(Becca Latif)/[facility] End of Report RAFFI GOODRICH 2006 2006 11: 12 EST Jesse Sanchez MD PATHOLOGY ORDERABLES [facility] [address] [place] [address] documented in this encounter Visit Diagnoses Not on filedocumented in this encounter
--- OUTSIDE RECORDS SUMMARY | 2024-02-10 15:19 | XMS_ITS | Encounter Summary ---
[place] [address] Care Team Providers Care Directional Survey Drafter Name Role Phone Ilya Barrera MD Primary Care Provider [phone] Reason for Visit * Reason Onset Date Comments Results 04/30/2011 Encounter Details Date Type Department Care Team (Late st Contact Info) Description 04/30/2011 [place] [phone] Daiana Esqueda RN Results Social History Tobacco Use [...] encounter Miscellaneous Notes * Telephone Encounter - Daiana Esqueda RN - 04/30/2011 4:43 PM EST DAIANA ESQUEDA RN 04/25/11 12:17 PM Signed ge Per the note from papa villarreal there was no pathologic reflux on the study which was done on medication, so reflux oes not account for whatever his current sx are He could have a f/u with andrei when she is back or tracia ----- Message ----- From: Daiana Esqueda RN Sent: 04/24/2011 12:48 PM To: Neelima Herring RN, Tong Mathis MD Subject: Results of Barrett Patient looking for results. Can you help? Mai Attempted to reach patient. Left a message requesting a call back to discuss above. called and spoke with patient. He is currently feeling better and does not want to schedule a f/u at this time. He will call to schedule if symptoms increase. documented in this encounter Plan of Treatment Upcoming Encounters Date Type Department Care Team (Late st Contact Info) Description 04/29/2024 11:00 AM EST Office Visit Radiation Oncology at [address] [address] Tyrese Fitzgerald MD [facility] [place] [address] documented as of this encounter Visit Diagnoses Not on filedocumented in this encounter Care Teams Directional Survey Drafter Relationship Specialty Start Date End Date Ilya Barrera MD PCP - General 04/04/10 08/25/12 documented as of this encounter
--- OUTSIDE RECORDS SUMMARY | 2024-02-10 15:19 | XMS_ITS | Encounter Summary ---
Author Organization [facility] Address [address] [place] [address] Care Team Providers Care Compliance Reviewer Name Role Phone Ilya Barrera MD Primary Care Provider [phone] Encounter Details Date Type Department Care Team (Late st Contact Info) Description 02/09/2021 Lab Requisition [facility] Pathology & Laboratory Medicine - [address] [address] Outr Resulting Lab, Provider Social History Tobacco [...] Procedure Name Priority Date/Time Associated Diagnosis Comments GIARDIA AND CRYPTOSPORIDIUM ANTIGENS Routine 02/09/2021 9:45 EDT documented in this encounter Results * GIARDIA AND CRYPTOSPORIDIUM ANTIGENS (02/09/2021 9:45 EDT) Giardia and Cryptosporidium Cryptosporidium Antigen Neg and Giardia Antigen Neg Cryptosporidium Antigen Neg and Giardia Antigen Neg 12:13 EDT [facility] Feces SPECIMEN FROM RECTUM / Unknown 02/09/2021 9:45 EDT 02/09/2021 22:10 EDT Provider Outr Resulting Lab MICROBIOLOGY - GENERAL ORDERABLES [facility] [address] [place] [address] documented in this encounter Visit Diagnoses Not on filedocumented in this encounter Care Teams Compliance Reviewer Relationship Specialty Start Date End Date Ilya Barrera MD PCP - General 03/21/15 documented as of this encounter
--- OUTSIDE RECORDS SUMMARY | 2024-02-10 15:19 | XMS_ITS | Encounter Summary ---
Author Organization [facility] Address [address] [place] [address] Care Team Providers Care Photolettering Machine Operator Name Role Phone Ilya Barrera MD Primary Care Provider [phone] Encounter Details Date Type Department Care Team (Late st Contact Info) Description 02/02/2021 Lab Requisition [facility] Pathology & Laboratory Medicine - [address] [address] Karir Trinidad MD [address] [place] [address] [id number] Encounter for other general examination Social History [...] Date/Time Associated Diagnosis Comments SURGICAL PATHOLOGY Today 02/01/2021 11 :05 EDT Encounter for other general examination documented in this encounter Results * SURGICAL PATHOLOGY (02/01/2021 11:05 EDT) Note to Patient The following pathology results have been interpreted by your pathologist and may be available to you before your health provider has had the opportunity to review them. Please allow time for your provider to receive these results and explore management options, if applicable. 02/06/2021 11:09 EDT [facility] Final Diagnosis A. LEFT MASTOID BOWL, DEBRIDEMENT/CURETTI NG: - Squamous cell carcinoma, invasive, well to moderately differentiated, keratinizing. See comment. 02/06/2021 11:09 [facility] Diagnosis Comment Sections show atypical surface squamous epithelium with irregular invasive islands of similar-appearing atypical keratinizing epithelium in the subepithelial stroma associated with a brisk chronic inflammatory response. The majority of the fragments are composed of invasive squamous cell carcinoma without normal appearing epithelium present. The exact depth cannot be determined based on the orientation of the fragments. Assembly Worker slides of this case were reviewed at the intradepartmental consultation conference. This case was discussed with Dr. Karri Trinidad on February 06, 2021. 02/06/2021 11:09 [facility] Attestation There was significant resident/fellow involvement in the diagnostic evaluation of this case. By the signature below, the attending physician certifies that they have personally conducted a gross and/or microscopic examination of the described specimens and rendered or confirmed the above diagnosis. 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 Received in formalin labelled with proper patient identification (initials L, D) and L mastoid are three pale sharp-white irregular soft tissues with attached dark brown blood clot (0.2 x 0.1 x 0.1 cm to 0.1 x 0.1 by less than 0.1 cm). Entirely submitted in A1. Pranay Gilliam 02/02/2021 8:43 02/06/2021 11:09 [facility] Resident/Fell ow: Michael Georges DO 02/06/2021 11:09 [facility] Performing Lab [facility] 02/06/2021 11:09 [facility] Scanned Images 02/06/2021 11:09 [facility] Tissue INNER EAR STRUCTURE / Unknown 02/01/2021 11:05 EDT 02/02/2021 8:32 EDT Karri Trinidad MD PATHOLOGY ORDERABLES [facility] [address] [place] [address] documented in this encounter Visit Diagnoses Diagnosis Encounter for other general examination documented in this encounter Care Teams Photolettering Machine Operator Relationship Specialty Start Date End Date Ilya Barrera MD PCP - General 03/21/15 documented as of this encounter
--- OUTSIDE RECORDS SUMMARY | 2024-02-10 15:19 | XMS_ITS | Encounter Summary ---
Author Organization [facility] [place] [address] Care Team Providers Care Belly Packer Name Role Phone Unavailable Primary Care Provider Unavailabl e Encounter Details Date Type Department Care Team (Late st Contact Info) Description 03/23/2010 10:15 AM EST Follow-Up Audiology at [address] [phone] Myles Gonzales, TERR[facility] [place] [address] Social History Tobacco Use Types Packs/Day Years [...] EST Office Visit Radiation Oncology at [address] [address] Tyrese Fitzgerald MD [facility] [place] [address] documented as of this encounter Visit Diagnoses Not on filedocumented in this encounter
--- OUTSIDE RECORDS SUMMARY | 2024-02-10 15:19 | XMS_ITS | Encounter Summary ---
Author Organization [facility] [place] [address] Care Team Providers Care Superintendent Pier Name Role Phone Ilya Barrera MD Primary Care Provider [phone] Encounter Details Date Type Department Care Team (Late Contact Info) Description 05/09/2010 3:00 PM EST Follow-[place] [address] Arnaud Linda MD [facility] [place] [address] Discharge Disposition: Home Social History Tobacco Use [...] EST Office Visit Radiation Oncology at [address] [phone] Tyrese Fitzgerald MD [facility] [place] [address] documented as of this encounter Visit Diagnoses Not on filedocumented in this encounter Care Teams Superintendent Pier Relationship Specialty Start Date End Date Ilya Barrera MD PCP - General 04/04/10 08/25/12 documented as of this encounter
--- OUTSIDE RECORDS SUMMARY | 2024-02-10 15:19 | XMS_ITS | Encounter Summary ---
Author Organization [facility] Address [facility] [place] [address] Care Team Providers Care Wigs Salesperson Name Role Phone Ilya Barrera MD Primary Care Provider Encounter Details Date Type Department Care Team (Late Contact Info) Description 05/01/2010 11:30 AM EST Office Visit Dermatology [address] [place] [address] [address] [place] [address] Enoc Vázquez MD [address] [place] [address], [facility] [place] [place] [address] Social History Tobacco Use Types Packs/Day Years [...] EST Office Visit Radiation Oncology at [address] [phone] Tyrese Fitzgerald MD [facility] [place] [address] documented as of this encounter Visit Diagnoses Not on filedocumented in this encounter Care Teams Wigs Salesperson Relationship Specialty Start Date End Date Ilya Barrera MD PCP - General 04/04/10 08/25/12 documented as of this encounter
--- OUTSIDE RECORDS SUMMARY | 2024-02-10 15:19 | XMS_ITS | Encounter Summary ---
Author Organization [facility] [place] [address] Care Team Providers Care Mexican Food Machine Tender Name Role Phone Ilya Barrera MD Primary Care Provider [phone] Encounter Details Date Type Department Care Team (Late Contact Info) Description 04/19/2010 [place] [address] Enoc Pathak MD [address] [place] [address], [facility] [place] [address] Social History Tobacco Use Types Packs/Day Years [...] EST Office Visit Radiation Oncology at [address] [address] Tyrese Fitzgerald MD [facility] [place] [address] documented as of this encounter Procedures Procedure Name Priority Date/Time Associated Diagnosis Comments SURGICAL PATHOLOGY REPORT Routine 04/19/2010 6:37 PM EST documented in this encounter Results * PATHOLOGY SURGICAL PATHOLOGY FINAL REPORT (04/19/2010 6:37 PM EST) Surgical Pathology Report ? [facility] ? Provider: ?? ENOC PATHAK ?? Pt. Name: ?? SUMAN WARNER ? Acc #: ?[id number] ? Pt. ? Col Date: ?? 04/19/2010 ? /Sex: ?1955,(54 years),Male ? Rec Date: ?? 04/19/2010 ? LOC: ?[facility] ? SURGICAL PATHOLOGY ? ---Pathologic Diagnosis--- ? Skin of right lateral neck, excision ? 1. Atypical lentiginous junctional melanocytic proliferation, and scar, ?margins appear negative. (see Comment). ? 2. Small incidental lentiginous compound nevus, margins appear negative. ? CR-0 ? 04/21/10 ? AEP ? 04/21/10 Verified by: ? Blanca Wyman MD ? Dermatopathologist ? (Electronic Signature) ? The attending pathologist whose signature appears on this report has ? reviewed all diagnostic slides and has edited the gross and/or ? microscopic portion of the report in rendering the final pathologic ? diagnosis. ? ---Comment--- ? This is a borderline lesion. ??The residual findings are similar to biopsy ? [id number], and in our opinion, stop just short of the diagnosis of ? melanoma in situ. ? Demetrio Clark and Bonnie also examined the case and concur with the ? interpretation. ? ---Microscopic Description--- ? Slides reviewed, microscopic description not recorded. ? ---Gross Description--- ? Labeled/Fixative: ? R lateral neck, formalin. ? Qty/Size/Weight: ?Single, 2.8 x 1.7 x 0.5 cm. ? Tissue Description: ?? Ellipse of sharp skin with a 0.6-cm, macias-brown macule ? with adjacent 0.6-cm, pink scar. ? Sections/Processing: ??The specimen is inked and serially sectioned. ??The ? ends are submitted in (1); the remainder of the ? specimen submitted in (2-4). ??(T4) ??aje/SNS ? ---Clinical Information--- ? Specimen Submitted: ? [facility] ? Provider: ?? ENOC PATHAK ?? Pt. Name: ?? SUMAN WARNER ? Acc #: ?[id number] ? Pt. ? Col Date: ?? 04/19/2010 ? /Sex: ?1955,(54 years),Male ? Rec Date: ?? 04/19/2010 ? LOC: ?[facility] ? SURGICAL PATHOLOGY ? A - (R) lateral neck, excision ? Clinical History: ? Atypical melanocytic proliferation, [id number] for excision ? Clinical Diagnosis: ? Same ? Report to: ? Enoc Pathak MD, III ? [facility] ? Dermatology ? . [place], [place] ??[address] [place] [place] 04/19/2010 6:37 PM EST Enoc Pathak MD PATHOLOGY/CYTOLOGY O RDERABLES [facility] [place] documented in this encounter Visit Diagnoses Not on filedocumented in this encounter Care Teams Mexican Food Machine Tender Relationship Specialty Start Date End Date Ilya Barrera MD PCP - General 04/04/10 08/25/12 documented as of this encounter
--- OUTSIDE RECORDS SUMMARY | 2024-02-10 15:19 | XMS_ITS | Encounter Summary ---
Author Organization [facility] Address [facility] [place] [address] Care Team Providers Care Lead Cashier Name Role Phone Ilya Barrera MD Primary Care Provider [phone] Reason for Visit * Reason Comments Follow-up Encounter Details Date Type Department Care Team (Late st Contact Info) Description 05/29/2011 8:15 AM EST Follow-[place] [phone] Arnaud Linda MD [facility] [place] [address] Dizziness (Primary Dx) Discharge Disposition: Home Social History [...] Sign Reading Time Taken Comments Blood Pressure 153/100 05/29/2011 8:21 AM EST Pulse 79 05/29/2011 8:21 AM EST Temperature - - Respiratory Rate - - Oxygen Saturation - - Inhaled Oxygen Concentration - - Weight 122 kg (269 lb 1 oz) 05/29/2011 8:[address] Height 177.8 cm (5' 10) 05/29/2011 8:21 AM EST Body Mass Index 38.61 05/29/2011 8:21 AM EST documented in this encounter Progress Notes * Arnaud Linda MD - 05/29/2011 9:13 AM EST Subjective: Patient ID: Suman Warner is a 56 y.o. male. HPI In today due to some recent problems with vertigo. He had a viral upper respiratory infection a fewweeks ago and witnessed developed some spinning vertigo. This persisted in an intermittent fashion for approximately 5 days. During this time he also noted some tinnitus involving the right ear. The d izziness has now resolved after a course of antibiotics. He did not have any type of pain or drainage from either ear during this episode. Review of Systems Negative or noncontributory Objective: Physical Exam The ears were examined with the operating microscope. Small mastoid cavity on the right is cleaned of some dried debris. There is no evidence of erythema or granulation. On the left, there is some moisture anteriorly over the phone otherwise unremarkable. Eyes: No spontaneous nystagmus. Assessment and Plan: The recent episode of vertigo associated with a viral upper respiratory infection most likely was due to viral labyrinthitis. I see no evidence of ongoing ear infection that would be contributory. Hewill follow-up as previously scheduled. No problem-specific visit notes found for this encounter. documented in this encounter Plan of Treatment Upcoming Encounters Date Type Department Care Team (Late st Contact Info) Description 04/29/2024 11:00 AM EST Office Visit Radiation Oncology at [address] [address] Tyrese Fitzgerald MD [facility] [place] [address] documented as of this encounter Visit Diagnoses Diagnosis Dizziness- Primary Dizziness and giddiness documented in this encounter Care Teams Lead Cashier Relationship Specialty Start Date End Date Ilya Barrera MD PCP - General 04/04/10 08/25/12 documented as of this encounter
--- OUTSIDE RECORDS SUMMARY | 2024-02-10 15:19 | XMS_ITS | Encounter Summary ---
Author Organization [facility] Address [facility] [place] [address] Care Team Providers Care Copy Technician Name Role Phone Ilya Barrera MD Primary Care Provider [phone] Reason for Visit * Reason Comments Enuresis Encounter Details Date Type Department Care Team (Late st Contact Info) Description 11/23/2010 1:40 PM EDT [place] [address] Jose Pelaez III, MD [facility] [address] Urinary dribbling (Primary Dx) Discharge Disposition: Home Social History [...] this encounter Patient Instructions * Patient Instructions* Jhonatan Alejandra MD - 11/23/2010 2:02 PM EDT Take terazosin as instructed. If no improvement after 4 weeks, call and we can titrate up the dose. Recommend being patient with each void so that you empty completely prior to pulling back from the toliet. documented in this encounter Progress Notes * Jhonatan Alejandra MD - 11/23/2010 7:52 PM EDT Subjective: Patient ID: Suman Warner is a 55 y.o. male. HPI Comments: Patient has been followed in the urology clinic for several years now for nocturia for which he had been trialed on several things included flomax and detrol. Flomax was stopped secondary to dysuria. Detrol was stopped as it was felt that it was not helping. At the last visit the patient was happy with his nocturia symptoms and no further intervention was done. He presents today because of concern for post-void driblbling. He states after he void he periodically dribbles and ultimately has a large round stain on his pants from the dribbling. He states that he has had this for years but he feels as if its getting worse. Otherwise the patient feels as if he's emptying his bladder completely, his stream is good, he experiences no hesitancy. He denies any dysuria/hematuria currently. Review of Systems Constitutional: Negative. HENT: Negative. Respiratory: Negative. Cardiovascular: Negative. Gastrointestinal: Negative. Genitourinary: Positive for enuresis. Negative for flank pain. Musculoskeletal: Negative. Skin: Negative. Objective: Physical Exam Constitutional: He is oriented to person, place, and time. He appears well- developed and well-nourished. Cardiovascular: Normal rate and regular rhythm. Pulmonary/Chest: Effort normal and breath sounds normal. Genitourinary: Prostate normal and penis normal. No penile tenderness. Neurological: He is alert and oriented to person, place, and time. He has normal reflexes. Skin: Skin is warm and dry. Assessment and Plan: 55M with post-void dribbling. This may be related to an enlarging prostate, detrusor sphincter dysfuntion or overactive bladder. Today we will trial him on a difference alpha chava since had a reaction to flomax. I have recommended that he take time while voiding to be sure he is completely done and wait to pull away from the toliet bowel preventing any leakage. The patient will trial [id number] daily and increase to 4mg daily in one month if he is not improved. I will see him back in clinic in 3 months. documented in this encounter Plan of Treatment Upcoming Encounters Date Type Department Care Team (Late st Contact Info) Description 04/29/2024 11:00 AM EST Office Visit Radiation Oncology at [address] [address] Tyrese Fitzgerald MD [facility] [place] [address] documented as of this encounter Visit Diagnoses Diagnosis Urinary dribbling- Primary Post-void dribbling documented in this encounter Care Teams Copy Technician Relationship Specialty Start Date End Date Ilya Barrera MD PCP - General 04/04/10 08/25/12 documented as of this encounter
[2024-02-10 15:25] LABS: HCT 49.5 % (40.0-50.0); HGB 17.3 g/dL (13.5-17.5); MCH 32.2 pg (27.0-33.0); MCHC 34.9 % (32.0-36.0); MCV 92 fL (80-95); MPV 10.4 fL (8.0-11.0); Platelet Count 208 10^3/uL (130-400); RBC 5.38 10^6/uL (4.36-5.78); RDW 12.5 % (11.8-14.1); WBC 5.24 10^3/uL (4.4-10.8)
[2024-02-10 15:36] LABS: ALT 37 U/L (16-63); AST 25 U/L (15-37); Albumin 3.8 g/dL (3.4-5.0); Alkaline Phosphatase 85 U/L (46-116); Anion Gap 3.6 mmol/L (3-11); BUN 16 mg/dL (7-18); Bilirubin, Total 1.47 mg/dL (0.2-1.0); CO2 32.4 mmol/L (21.0-32.0); Calcium 9.5 mg/dL (8.5-10.1); Calculated LDL 77 mg/dL (<100); Chloride 102 mmol/L (98-107); Cholesterol 158 mg/dL (<200); Estimated GFR 82.49 (mL/min/1.73m2); Glucose 234 mg/dL (74-106); HDL Cholesterol 58 mg/dL (40-60); Potassium 4.8 mmol/L (3.5-5.1); Sodium 138 mmol/L (136-145); Triglyceride 119 mg/dL (<150)
[2024-02-10 15:55] LABS: Hemoglobin A1C 6.4 % (<5.7)
== END 2024-02-10 15:13 | disposition home or self-care (01) ==
LOC: NCHCN 15:12
PROVIDERS: PCP Nurse Practitioner Family; Visit Provider Nurse Practitioner Family
DX: E11.9 Type 2 diabetes mellitus without complications (principal)
CPT/HCPCS: 80053; 80061; 85027; 83036

== ENCOUNTER 2024-02-19 00:46 | Outpatient (CLI) | payer MEDICARE, SELFPAY ==
--- NOTE | 2024-02-19 11:10 | DI.US_ITS ---
Exam(s) US RENAL EXAM: US RENAL CLINICAL HISTORY: LOWER URINARY TRACT SYMPTOMS, BPH, N40.1. TECHNIQUE: James scale, color and spectral Doppler were used. COMPARISON: US US RENAL from 08/28/[address] ABDOMEN PELVIS WO from 06/17/2023 FINDINGS: Right kidney: 11.1cm Echogenicity: Normal Hydronephrosis: No Cyst or mass: No Nephrolithiasis: No Left kidney: 12.3cm Echogenicity: Normal Hydronephrosis: No Cyst or mass: No Nephrolithiasis: No Bladder:Diffusely mildly thickened wall. Mild trabeculation. Prevoid vol:93 cc, not well distended. Postvoid vol:0 cc Prostate not visualized. IMPRESSION: Bladder wall thickening with mild trabeculation. Prostate not visualized. DATA REPOSITORY:
== END 2024-02-19 01:06 ==
LOC: DI 00:48
PROVIDERS: PCP Nurse Practitioner Family; Visit Provider Nurse Practitioner Family
DX: N40.1 Benign prostatic hyperplasia with lower urinary tract symptoms (principal)
CPT/HCPCS: 76770

== ENCOUNTER 2024-04-29 10:18 | Outpatient (REF) | payer MEDICARE, SELFPAY ==
--- OUTSIDE RECORDS SUMMARY | 2024-04-29 10:23 | XMS_ITS | Encounter Summary ---
Author Organization [facility] [place] [address] Care Team Providers Care Divider Operator Name Role Phone Ilya Medina MD Primary Care Provider Encounter Details Date Type Department Care Team (Late st Contact Info) Description 11/05/2022 Telephone [place] [address] Shabnam Sherman Social History Tobacco [...] AM EST Office Visit Radiation Oncology at [address] [phone] Tyrese Fitzgerald MD [facility] [place] [address] documented as of this encounter Visit Diagnoses Not on filedocumented in this encounter Care Teams Divider Operator Relationship 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
--- OUTSIDE RECORDS SUMMARY | 2024-04-29 10:23 | XMS_ITS | Encounter Summary ---
Author Organization [facility] Address [facility] [address] Care Team Providers Care Mail Carrier Name Role Phone Ilya Medina MD Primary Care Provider [phone] Encounter Details Date Type Department Care Team (Late st Contact Info) Description 06/07/2022 Orders Only [place] [address] Tyrese Fitzgerald MD [facility] [place] [address] Malignant neoplasm of bones of skull and [...] EST Office Visit Radiation Oncology at [address] [phone] Tyrese Fitzgerald MD [facility] [place] [address] documented as of this encounter Results * Creatinine (08/09/2022 10:41 AM EDT) Creatinine 0.97 0.80 - 1.50 mg/dL [facility] Est Glomerular Filtration Rate 86 >=60 mL/min/1. 73 m?? 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
--- OUTSIDE RECORDS SUMMARY | 2024-04-29 10:23 | XMS_ITS | Encounter Summary ---
Author Organization [facility] Address [facility] [place] [address] Care Team Providers Care Middleware Systems Architect Name Role Phone Ilya Medina MD Primary Care Provider [phone] Encounter Details Date Type Department Care Team (Late st Contact Info) Description 01/31/2022 1:30 PM EDT Office Visit Radiation Oncology at [address] [address] Tyrese Fitzgerald MD [facility] [place] [address] Malignant neoplasm of bones of skull and [...] from the original note were not included. 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 We [...] placed in this encounter. ??? National Cancer [place] (NCI) Comprehensive Cancer Center ??? [place] [employer] Commission on Cancer (ACS [place]) Accredited Cancer Program ??? [place] (ACR) Accredited Radiation Oncology Program documented in this encounter Plan of Treatment Upcoming Encounters Date Type Department Care Team (Late st Contact Info) Description 04/29/2024 11:00 AM EST Office Visit Radiation Oncology at [address] [address] Tyrese Fitzgerald MD 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
--- OUTSIDE RECORDS SUMMARY | 2024-04-29 10:23 | XMS_ITS | Encounter Summary ---
Author Organization [facility] Address [facility] [place] [address] Care Team Providers Care Power Plant Mechanic Name Role Phone Ilya Medina MD Primary Care Provider [phone] Encounter Details Date Type Department Care Team [...] to sleep or slept in a senior care (including now)? No 07/19/2021 Sex and Gender [...] EST Office Visit Radiation Oncology at [address] [address] Tyrese Fitzgerald MD [facility] [place] [address] documented as of this encounter Visit Diagnoses Not on filedocumented in this encounter Care Teams Power Plant Mechanic Relationship 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
--- OUTSIDE RECORDS SUMMARY | 2024-04-29 10:23 | XMS_ITS | Encounter Summary ---
Author Organization [facility] Address [facility] [place] [address] Care Team Providers Care Depilatory Painter Name Role Phone Ilya Medina MD Primary Care Provider [phone] Encounter Details Date Type Department Care Team [...] EST Office Visit Radiation Oncology at [address] [address] Tyrese Fitzgerald MD [facility] [place] [address] documented as of this encounter Visit Diagnoses Not on filedocumented in this encounter Care Teams Depilatory Painter Relationship 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
--- OUTSIDE RECORDS SUMMARY | 2024-04-29 10:23 | XMS_ITS | Encounter Summary ---
Author Organization [facility] Address [facility] [place] [address] Care Team Providers Care Dictaphone Typist Name Role Phone Ilya Medina MD Primary Care Provider [phone] Encounter Details Date Type Department Care Team (Late st Contact Info) Description 02/05/2022 12:00 PM EDT Office [place] [address] Jose D Tejada MD [facility] [place] [address] Cancer of temporal bone Social History Tobacco [...] Tejada MD - 02/05/2022 12:00 PM EDT [place] OT[facility] HEAD [facility] NECK TUMOR [facility]INIC FOLLOW UP NOTE Suman Warner is a 66 y.o. 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
--- OUTSIDE RECORDS SUMMARY | 2024-04-29 10:23 | XMS_ITS | Encounter Summary ---
Author Organization [facility] Address [facility] [place] [address] Care Team Providers Care Trust Clerk Name Role Phone Ilya Medina MD Primary Care Provider [phone] Encounter Details Date Type Department Care Team [...] AM EST Office Visit Radiation Oncology at [address] [address] Tyrese Fitzgerald MD [facility] [place] [address] documented as of this encounter Visit Diagnoses Not on filedocumented in this encounter Care Teams Trust Clerk Relationship 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
--- OUTSIDE RECORDS SUMMARY | 2024-04-29 10:23 | XMS_ITS | Encounter Summary ---
Author Organization [facility] Address [facility] [place] [address] Care Team Providers Care Assistant Coach Name Role Phone Ilya Medina MD Primary Care Provider [phone] Encounter Details Date Type Department Care Team (Late st Contact Info) Description 11/07/2022 Orders Only [place] [address] Caridad Sifuentes MD [facility] [place] [address] Social History Tobacco Use Types Packs/Day Years [...] EST Office Visit Radiation Oncology at [address] [address] Tyrese Fitzgerald MD [facility] [place] [address] documented as of this encounter Visit Diagnoses Not on filedocumented in this encounter Care Teams Assistant Coach Relationship 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
--- OUTSIDE RECORDS SUMMARY | 2024-04-29 10:23 | XMS_ITS | Encounter Summary ---
Author Organization [facility] Address [facility] [place] [address] Care Team Providers Care Rod And Tube Straightener Name Role Phone Ilya Medina MD Primary Care Provider [phone] Encounter Details Date Type Department Care Team (Late st Contact Info) Description 02/14/2023 Ancillary Procedure Radiology Library at [facility] [place] [address] Ilya Medina MD [address] [place] [address] [address] [place], [place] [id number] Social History Tobacco Use Types Packs/Day Years [...] EST Office Visit Radiation Oncology at [address] [phone] Tyrese Fitzgerald MD [facility] [place] [address] documented as of this encounter Procedures Procedure [...] Medina MD IMG FILM LIBRARY ORD ERABLES [place], [place] documented in this encounter Visit Diagnoses Not on filedocumented in this encounter Care Teams Rod And Tube Straightener Relationship 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
--- OUTSIDE RECORDS SUMMARY | 2024-04-29 10:23 | XMS_ITS | Encounter Summary ---
Author Organization [facility] Address [facility] [place] [address] Care Team Providers Care Station Examiner Name Role Phone Ilya Medina MD Primary Care Provider [phone] Encounter Details Date Type Department Care Team [...] EST Office Visit Radiation Oncology at [address] [address] Tyrese Fitzgerald MD [facility] [place] [address] documented as of this encounter Visit Diagnoses Not on filedocumented in this encounter Care Teams Station Examiner Relationship 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
--- OUTSIDE RECORDS SUMMARY | 2024-04-29 10:23 | XMS_ITS | Encounter Summary ---
Author Organization [facility] Address [facility] [place] [address] Care Team Providers Care Physical Chemistry Teacher Name Role Phone Ilya Medina MD Primary Care Provider [phone] Reason for Visit * Reason Comments Follow-up Encounter Details Date Type Department Care Team (Late st Contact Info) Description 08/09/2022 3:00 PM EDT Office [place] [address] Tyrese Fitzgerald MD [facility] [place] [address] Malignant neoplasm of bones of skull and [...] from the original note were not included. 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 We [...] placed in this encounter. ??? National Cancer [place] (NCI) Comprehensive Cancer Center ??? [employer] [place] [employer] Sur[employer] Commission on Cancer (ACS [place]) Accredited Cancer Program ??? 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
--- OUTSIDE RECORDS SUMMARY | 2024-04-29 10:23 | XMS_ITS | Encounter Summary ---
Author Organization [facility] [place] [address] Care Team Providers Care Capital Equipment Specialist Name Role Phone Ilya Medina MD Primary Care Provider [phone] Encounter Details Date Type Department Care Team (Latest Contact Info) Description 01/30/2022 12:30 PM EDT - 01/30/2022 1:36 PM EDT Hospital Encounter [place]ology [place] [phone] Malignant neoplasm of bones of skull and [...] 12/28/2021 01/31/2022 Miscellaneous Medical Supply Misc by [facility]Non-Drug; Combo Route) route. 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 73 m?? 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
--- OUTSIDE RECORDS SUMMARY | 2024-04-29 10:23 | XMS_ITS | Encounter Summary ---
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 [place] [address] [facility] [place] [address] Referral ID Status Reason Start Date Expiration Date V isits Requested Visits Authorized [id number] Closed Specialty Service Requested 08/14/2023 02/12/2025 1 1 Encounter Details Date Type Department Care Team (Late st Contact Info) Description 08/14/2023 8:30 AM EDT Office Visit Radiation Oncology at [address] [address] Tyrese Fitzgerald MD [facility] [place] [address] Malignant neoplasm of bones of skull and [...] from the original note were not included. 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 We [...] were placed in this encounter. National Cancer [place] (NCI) Comprehensive Cancer Center [employer] [employer] Commission on Cancer (ACS [place]) Accredited Cancer Program [employer] [employer] (ACR) Accredited Radiation Oncology Program documented in this encounter Plan of Treatment Upcoming Encounters Date Type Department Care Team (Late st Contact Info) Description 04/29/2024 11:00 AM EST Office Visit Radiation Oncology at [address] [address] Tyrese Fitzgerald MD 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 ? [...] patients who have questions please contactthe health care transitions manager that requested your imaging first. 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
--- OUTSIDE RECORDS SUMMARY | 2024-04-29 10:23 | XMS_ITS | Encounter Summary ---
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, except mandible Procedures CT Temporal Bone w Contrast Tyrese Fitzgerald MD [facility] [place] [address] [facility] [place] [address] Referral ID Status Reason Start Date Expiration Date V isits Requested Visits Authorized [id number] Closed Specialty Service Requested 01/02/2022 07/05/2023 1 1 * Diagnostic Test (Routine) - Closed Specialty Diagnoses / Procedures Referred By Contac t Referred To Contact Radiology Diagnoses 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, except mandible Procedures CT Neck Soft Tissue w Contrast (Generic) Tyrese Fitzgerald MD [facility] [place] [address] [facility] [place] [address] Referral ID Status Reason Start Date Expiration Date V isits Requested Visits Authorized [id number] Closed Specialty Service Requested 01/02/2022 07/05/2023 1 1 Encounter Details Date Type Department Care Team (Late st Contact Info) Description 01/02/2022 Orders Only Radiation Oncology at [facility] [place] [address] Tyrese Fitzgerald MD [facility] [place] [address] Malignant neoplasm of bones of skull and [...] EST Office Visit Radiation Oncology at [address] [address] Tyrese Fitzgerald MD [facility] [place] [address] documented as of this encounter Results * [...] who have questions please contact the health adult caregiver that requested your imaging first. ? 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 Tyrese Fitzgerald [...] who have questions please contact the health adult caregiver that requested your imaging first. ? 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
--- OUTSIDE RECORDS SUMMARY | 2024-04-29 10:23 | XMS_ITS | Encounter Summary ---
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, except mandible Procedures CT Temporal Bone w Contrast Kalie Guillermo MD [facility] [place] [address] [facility] [place] [address] Referral ID Status Reason Start Date Expiration Date V isits Requested Visits Authorized [id number] Closed Specialty Service Requested 06/06/2022 12/05/2023 1 1 Encounter Details Date Type Department Care Team (Late st Contact Info) Description 06/06/2022 2:00 PM EST Office Visit Radiation Oncology at [address] [address] Tyrese Fitzgerald MD [facility] [place] [address] Malignant neoplasm of bones of skull and [...] from the original note were not included. 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 We [...] Temporal Bone w Contrast ??? National Cancer [place] (NCI) Comprehensive Cancer Center ??? [place] [employer] Commission on Cancer (ACS [place]) Accredited Cancer Program ??? [place] [employer] (ACR) Accredited Radiation Oncology Program documented in this encounter Plan of Treatment Upcoming Encounters Date Type Department Care Team (Late st Contact Info) Description 04/29/2024 11:00 AM EST Office Visit Radiation Oncology at [address] [address] Tyrese Fitzgerald MD [facility] [place] [address] documented as of this encounter Results * [...] have questions please contact the health childcare worker that requested your imaging first. ? Narrative [...] who have questions please contactthe health childcare worker that requested your imaging first. 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
--- OUTSIDE RECORDS SUMMARY | 2024-04-29 10:23 | XMS_ITS | Encounter Summary ---
Author Organization [facility] [place] [address] Care Team Providers Care Sales Representative Business Courses Name Role Phone Ilya Medina MD Primary Care Provider [phone] Encounter Details Date Type Department Care Team (Late st Contact Info) Description 07/30/2023 Telephone Radiation Oncology at [address] [address] Silvia Mayer Social History Tobacco [...] EST Office Visit Radiation Oncology at [address] [phone] Tyrese Fitzgerald MD [facility] [place] [address] documented as of this encounter Visit Diagnoses Not on filedocumented in this encounter Care Teams Sales Representative Business Courses Relationship 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
--- OUTSIDE RECORDS SUMMARY | 2024-04-29 10:23 | XMS_ITS | Encounter Summary ---
Author Organization [facility] Address [facility] [place] [address] Care Team Providers Care Pecan Sheller Name Role Phone Ilya Medina MD Primary Care Provider [phone] Encounter Details Date Type Department Care Team [...] AM EST Office Visit Radiation Oncology at [address] [address] Tyrese Fitzgerald MD [facility] [place] [address] documented as of this encounter Visit Diagnoses Not on filedocumented in this encounter Care Teams Pecan Sheller Relationship 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
--- OUTSIDE RECORDS SUMMARY | 2024-04-29 10:23 | XMS_ITS | Encounter Summary ---
Author Organization [facility] Address [facility] [place] [address] Care Team Providers Care Plumber And Tinner Name Role Phone Ilya Medina MD Primary Care Provider [phone] Encounter Details Date Type Department Care Team (Late st Contact Info) Description 02/20/2023 Orders [place] [address] Tyrese Fitzgerald MD [facility] [place] [address] Malignant neoplasm of bones of skull and [...] EST Office Visit Radiation Oncology at [address] [address] Tyrese Fitzgerald MD [facility] [place] [address] documented as of this encounter Results * [...] who have questions please contact the health health care marketing specialist that requested your imaging first. ? 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 Recurrence; Sending Institution [facility]; Date ofexam [id number]; I believe a reinterpretation [...] patients who have questions please contactthe health health care marketing specialist that requested your imaging first. 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
--- OUTSIDE RECORDS SUMMARY | 2024-04-29 10:23 | XMS_ITS | Encounter Summary ---
Author Organization [facility] [place] [address] Care Team Providers Care Power Plant Installer Name Role Phone Ilya Medina MD Primary Care Provider [phone] Encounter Details Date Type Department Care Team (Latest Contact Info) Description 08/09/2022 10:35 AM EDT Laboratory Appointment Lab [address] [place] [phone] Malignant neoplasm of bones of skull and [...] EST Office Visit Radiation Oncology at [address] [address] Tyrese Fitzgerald MD [facility] [place] [address] documented as of this encounter Procedures Procedure Name Priority Date/Time Associated Diagnosis Comments CREATININE Routine 08/09/2022 10:41 AM EDT 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 73 m?? 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
--- OUTSIDE RECORDS SUMMARY | 2024-04-29 10:23 | XMS_ITS | Encounter Summary ---
Author Organization [facility] Address [facility] [place] [address] Care Team Providers Care Solution Designer Name Role Phone Ilya Medina MD Primary Care Provider [phone] Encounter Details Date Type Department Care Team [...] EST Office Visit Radiation Oncology at [address] [address] Tyrese Fitzgerald MD [facility] [place] [address] documented as of this encounter Visit Diagnoses Not on filedocumented in this encounter Care Teams Solution Designer Relationship 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
--- OUTSIDE RECORDS SUMMARY | 2024-04-29 10:23 | XMS_ITS ---
Author Organization [facility] Address [facility] [place] [address] Care Team Providers Care Surgical Resident Name Role Phone Ilya Medina MD Primary Care Provider [phone] Active Problems Problem Noted Date Diagnosed Date [...] 05/02/22 07/31/22 ON ACTIVE TREATMENT COMPLETED TREATMENT [place] - MD x Eric - AP x [...] Eric - MD x x x x Eric [...] treatments are documented for this patient in [facility]. Treatments may have been administered in another system. Lifetime Dose Tracking * Chemical Lifetime Dose Automatic Entry Manual Entr y DLP (Dose Length Product) 1,656 mGy-cm 1,656 mGy-cm 0 mGy-cm CTDI (CT Dose Index) Min 144.85 mGy 144.85 mGy 0 m Gy CTDI (CT Dose Index) Max 165.29 mGy 165.29 mGy 0 m Gy
--- OUTSIDE RECORDS SUMMARY | 2024-04-29 10:23 | XMS_ITS | Encounter Summary ---
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, except mandible Procedures CT Temporal Bone w Contrast Tyrese Fitzgerald MD [facility] [place] [address] [facility] [place] [address] Referral ID Status Reason Start Date Expiration Date V isits Requested Visits Authorized [id number] Closed Specialty Service Requested 01/02/2022 07/05/2023 1 1 * Diagnostic Test (Routine) - Closed Specialty Diagnoses / Procedures Referred By Contac t Referred To Contact Radiology Diagnoses 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, except mandible Procedures CT Neck Soft Tissue w Contrast (Generic) Tyrese Fitzgerald MD [facility] [place] [place] [address] [facility] [place] [address] Referral ID Status Reason Start Date Expiration Date V isits Requested Visits Authorized [id number] Closed Specialty Service Requested 01/02/2022 07/05/2023 1 1 Reason for Visit * Diagnostic Test (Routine) - Closed Specialty Diagnoses / Procedures Referred By Contac t Referred To Contact Radiology Diagnoses 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, except mandible Procedures CT Neck Soft Tissue w Contrast (Generic) Tyrese Fitzgerald MD [facility] [place] [place] [address] [facility] [place] [address] Referral ID Status Reason Start Date Expiration Date V isits Requested Visits Authorized [id number] Closed Specialty Service Requested 01/02/2022 07/05/2023 1 1 Encounter Details Date Type Department Care Team (Latest Contact Info) Description 01/30/2022 1:37 PM EDT - 01/30/2022 11:59 PM EDT Hospital [place] [address] Tyrese Fitzgerald MD [facility] [place] [place] [address] Malignant neoplasm of bones of [...] 12/28/2021 01/31/2022 Miscellaneous Medical Supply Misc by [facility].(Non-Drug; Combo Route) route. Phytoplex Remedy Moisturizing Cream- [...] EST Office Visit Radiation Oncology at [address] [address] Tyrese Fitzgerald MD [facility] DR [place] [address] documented as of this encounter Procedures Procedure [...] questions please contact the health palliative care coordinator that requested your imaging first. ? 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 [...] questions please contact the health palliative care coordinator that requested your imaging first. ? 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 [...] mLs documented in this encounter Care Teams Casting Room Operator Relationship 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
--- OUTSIDE RECORDS SUMMARY | 2024-04-29 10:23 | XMS_ITS | Encounter Summary ---
Author Organization [facility] [place] [address] Care Team Providers Care Computer Forwarding System Markup Clerk Name Role Phone Ilya Medina MD Primary Care Provider [phone] Encounter Details Date Type Department Care Team (Late st Contact Info) Description 08/14/2023 Telephone [place] [address] Arlin Larios Social History Tobacco [...] EST Office Visit Radiation Oncology at [address] [address] Tyrese Fitzgerald MD [facility] [place] [address] documented as of this encounter Visit Diagnoses Not on filedocumented in this encounter Care Teams Computer Forwarding System Markup Clerk Relationship 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
--- OUTSIDE RECORDS SUMMARY | 2024-04-29 10:23 | XMS_ITS | Encounter Summary ---
Author Organization [facility] Address [facility] [place] [address] Care Team Providers Care Network Support Technician Name Role Phone Ilya Medina MD Primary Care Provider [phone] Encounter Details Date Type Department Care Team (Late st Contact Info) Description 02/21/2023 Telephone [place] [address] Tyrese Fitzgerald MD [facility] [place] [address] Social History Tobacco Use Types Packs/Day Years [...] EST Office Visit Radiation Oncology at [address] [address] Tyrese Fitzgerald MD [facility] [place] [address] documented as of this encounter Visit Diagnoses Not on filedocumented in this encounter Care Teams Network Support Technician Relationship 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
--- OUTSIDE RECORDS SUMMARY | 2024-04-29 10:23 | XMS_ITS | Clinical Summary ---
Author Organization [facility] Address [facility] [place] [address] Care Team Providers Care Behavioral Health Therapist Name Role Phone Ilya Medina MD Primary Care Provider [phone] Allergies No known active allergies Medications Medication [...] 05/02/22 07/31/22 ON ACTIVE TREATMENT COMPLETED TREATMENT [place] - MD x Eric - AP x [...] Eric - MD x x x x [place] - AP x x Rad Onc x [...] 5 YEARS: Alternate annual follow-up appointments between [place] AP and MD, beginning with AP at [...] AM EST Office Visit Radiation Oncology at [address] [phone] Tyrese Fitzgerald MD [facility] [place] [address] Health Maintenance Due Date Last Done Comments [...] EDT) Glucose 199 65 - 199 mg/dL [facility] Comment:Diabetes: >=200 mg/d L plus symptoms Blood Urea Nitrogen 16 10 - 20 mg/dL [facility] Creatinine 0.88 0.80 - 1.50 mg/dL [facility] Sodium 135 135 - 145 mmol/L [facility] Potassium 4.3 3.5 - 5.0 mmol/L [facility] Comment: Please note: ??Patients with WBC >100,000 may have falsely elevated Potassium levels. ??For accurate Potassium quantification in these patients send serum separator tube (gold top) for subsequent determinations. ??Contact the Clinical Chemistry Laboratory if there are any questions. Chloride 102 98 - 107 mmol/L [facility] Carbon Dioxide 20(L) 22 - 31 mmol/L [facility] Anion Gap 13 5 - 15 mmol/L [facility] Calcium 8.8 8.5 - 10.5 mg/dL [facility] Est Glomerular Filtration Rate 90 >=60 mL/min/1. 73 m?? [facility] Comment: This patient? s [...] Jose D Hoang MD CHEMISTRY ORDERABL ES [facility] [place] [address] * COLONOSCOPY (10/09/2012 1:56 PM EDT) COLONOSCOPY [facility] Endoscopy Patient Name: Suman Warner ? Procedure Date: 10/09/2012 1:56 PM ? Date of : 1955 ? Age: 57 ? Order #: [id number] ? Procedure: ? Colonoscopy Indications: ? Chronic diarrhea Providers: ? Xiang Owen MD, Connie Modi, ? RN, Neelima Nixon, Handicapped Teacher Referring MD: ?Ilya Barrera MD, Adarsh Page [...] Documents on File Type Date Recorded Patient Ward Helper Expl anation Advance Directives and Livin g [...] Status decision made by: Patient Care Teams Behavioral Health Therapist Relationship Specialty Start Date End Date Ilya Medina MD PCP - General 09/25/16
--- OUTSIDE RECORDS SUMMARY | 2024-04-29 10:23 | XMS_ITS | Encounter Summary ---
Author Organization [facility] Address [facility] [place] [address] Care Team Providers Care Director Religious Education Name Role Phone Ilya Medina MD Primary Care Provider [phone] Encounter Details Date Type Department Care Team (Latest Contact Info) Description 02/20/2023 5:10 PM EDT Ancillary Procedure Radiology Library at [facility] [place] [address] Tyrese Fitzgerald MD [facility] [place] [address] Malignant neoplasm of bones of skull and [...] EST Office Visit Radiation Oncology at [address] [phone] Tyrese Fitzgerald MD [facility] [place] [address] documented as of this encounter Procedures Procedure [...] who have questions please contact the health clinical manager home care that requested your imaging first. ? 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 Recurrence; Sending Institution [facility]; Date ofexam [id number]; I believe a reinterpretation [...] patients who have questions please contactthe health clinical manager home care that requested your imaging first. 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
--- OUTSIDE RECORDS SUMMARY | 2024-04-29 10:23 | XMS_ITS | Encounter Summary ---
Author Organization [facility] Address [facility] [place] [address] Care Team Providers Care Rubber And Pounder Name Role Phone Ilya Medina MD Primary Care Provider [phone] Encounter Details Date Type Department Care Team (Late st Contact Info) Description 01/16/2023 9:30 AM EDT Office Visit Radiation Oncology at [address] [address] Tyrese Fitzgerald MD [facility] [address] Malignant neoplasm of bones of skull and [...] medical appointments or from getting medications? No 0 01/2022 In the past 12 months, has [...] from the original note were not included. 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 We [...] Tissue w Contrast (Generic) Creatinine National [facility] [place] (NCI) [facility] [employer] Commission on Cancer (ACS [place]) Accredited Cancer Program [employer] (ACR) Accredited Radiation Oncology Program documented in this encounter Plan of Treatment Upcoming Encounters Date Type Department Care Team (Late st Contact Info) Description 04/29/2024 11:00 AM EST Office Visit Radiation Oncology at [address] [address] Tyrese Fitzgerald MD [facility] [place] [address] documented as of this encounter Visit Diagnoses Diagnosis 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
--- OUTSIDE RECORDS SUMMARY | 2024-04-29 10:23 | XMS_ITS | Encounter Summary ---
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, except mandible Procedures CT Temporal Bone w Contrast Kalie Guillermo MD [facility] [place] [address] [facility] [place] [address] Referral ID Status Reason Start Date Expiration Date V isits Requested Visits Authorized [id number] Closed Specialty Service Requested 06/06/2022 12/05/2023 1 1 Reason for Visit * Diagnostic Test (Routine) - Closed Specialty Diagnoses / Procedures Referred By Contac t Referred To Contact Radiology Diagnoses 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, except mandible Procedures CT Temporal Bone w Contrast Kalie Guillermo MD [facility] [place] [address] [facility] [place] [address] Referral ID Status Reason Start Date Expiration Date V isits Requested Visits Authorized [id number] Closed Specialty Service Requested 06/06/2022 12/05/2023 1 1 Encounter Details Date Type Department Care Team (Latest Contact Info) Description 08/09/2022 11:42 AM EDT - 08/09/2022 11:59 PM EDT Hospital Encounter [place] [facility] [place] [phone] Tyrese Fitzgerald MD [facility] [place] [address] Malignant neoplasm of bones of skull and [...] 12 02/06/2011 Miscellaneous Medical Supply Misc by [facility]Non-Drug; Combo Route) route. Phytoplex Remedy Moisturizing Cream- Apply to area of radiation twice a day but no less than 2 hours before a treatment. 01/16/2023 documented as of this encounter Plan of Treatment Upcoming Encounters Date Type Department Care Team (Late st Contact Info) Description 04/29/2024 11:00 AM EST Office Visit Radiation Oncology at [address] [address] Tyrese Fitzgerald MD [facility] [place] [address] documented as of this encounter Procedures Procedure [...] who have questions please contact the health rn coronary care unit that requested your imaging first. ? Electronically signed by: Jose Waltesr DO, [facility] ??([phone]), at 08/10/2022 10:49 AM Narrative 08/10/2022 10:49 [...] patients who have questions please contactthe health rn coronary care unit that requested your imaging first. Electronically signed by: Jose Walters DO, [facility]([phone]), at 08/10/2022 10:49 AM Tyrese Fitzgerald MD [...] mLs documented in this encounter Care Teams Director Of Personnel Relationship 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
--- OUTSIDE RECORDS SUMMARY | 2024-04-29 10:23 | XMS_ITS | Encounter Summary ---
Author Organization [facility] Address [facility] [place] [address] Care Team Providers Care Director Of Communications Name Role Phone Ilya Medina MD Primary Care Provider [phone] Encounter Details Date Type Department Care Team (Late st Contact Info) Description 01/02/2022 Orders [place] [address] Tyrese Fitzgerald MD [facility] [place] [address] Malignant neoplasm of bones of skull and [...] EST Office Visit Radiation Oncology at [address] [address] Tyrese Fitzgerald MD [facility] [place] [address] documented as of this encounter Results * Creatinine (01/30/2022 12:43 PM EDT) Creatinine 0.93 0.80 - 1.50 mg/dL [facility] Est Glomerular Filtration Rate 91 >=60 mL/min/1. 73 m?? 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
--- OUTSIDE RECORDS SUMMARY | 2024-04-29 10:23 | XMS_ITS | Encounter Summary ---
Author Organization [facility] Address [facility] [place] [address] Care Team Providers Care Design Drafter Chief Name Role Phone Ilya Medina MD Primary Care Provider [phone] Reason for Visit * Reason Comments Follow-up Things are ok. 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
--- OUTSIDE RECORDS SUMMARY | 2024-04-29 10:23 | XMS_ITS | Encounter Summary ---
Author Organization [facility] Address [facility] [place] [address] Care Team Providers Care Warp Drawer Name Role Phone Ilya Medina MD Primary Care Provider [phone] Reason for Visit * Reason Comments Follow-up Doing well Encounter Details Date Type Department Care Team (Late st Contact Info) Description 08/09/2022 3:30 PM EDT Office [place] [address] Didier Baca PA [facility] [place] [address] Cancer of temporal bone Social History Tobacco [...] Baca PA - 08/09/2022 3:30 PM EDT [facility] OT[facility] FOLLOW UP NOTE Suman Warner is a 67 y.o. 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 Miscellaneous Medical Supply Misc by [facility]Non-Drug; Combo Route) route. Phytoplex Remedy Moisturizing Cream- [...] in Mr. Warner's care. 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
--- OUTSIDE RECORDS SUMMARY | 2024-04-29 10:23 | XMS_ITS | Encounter Summary ---
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, except mandible Procedures CT Neck Soft Tissue w Contrast (Generic) Tyrese Fitzgerald MD [facility] [place] [address] [facility] [place] [address] Referral ID Status Reason Start Date Expiration Date V isits Requested Visits Authorized [id number] Closed Specialty Service Requested 08/14/2023 02/12/2025 1 1 Reason for Visit * Diagnostic Test (Routine) - Closed Specialty Diagnoses / Procedures Referred By Contac t Referred To Contact Radiology Diagnoses 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, except mandible Procedures CT Neck Soft Tissue w Contrast (Generic) Tyrese Fitzgerald MD [facility] [place] [address] [facility] [place] [address] Referral ID Status Reason Start Date Expiration Date V isits Requested Visits Authorized [id number] Closed Specialty Service Requested 08/14/2023 02/12/2025 1 1 Encounter Details Date Type Department Care Team (Latest Contact Info) Description 10/31/2023 12:29 PM EDT - 10/31/2023 11:59 PM EDT Hospital Encounter CT Scan at [facility] [place] [address] Tyrese Fitzgerald MD [facility] [place] [address] Malignant neoplasm of bones of skull and [...] EST Office Visit Radiation Oncology at [address] [address] Tyrese Fitzgerald MD [facility] [place] [address] documented as of this encounter Procedures Procedure Name Priority Date/Time Associated Diagnosis Comments CT NECK SOFT TISSUE W CONTRAST Routine 10/31/2023 1:02 PM EDT 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 ? Electronically signed by: Jose Walters DO, [facility] ??([phone]), at 11/01/2023 9:54 AM Narrative 11/01/2023 9:54 AM EDT EXAMINATION: CT [...] have questions please contactthe health health care facility administrator that requested your imaging first. Electronically signed by: Jose Walters DO, [facility]([phone]), at 11/01/2023 9:54 AM Tyrese Fitzgerald MD IM CT ORDERABLES documented [...] mLs documented in this encounter Care Teams Plastic Hospital Products Assembler Relationship 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
--- OUTSIDE RECORDS SUMMARY | 2024-04-29 10:23 | XMS_ITS | Encounter Summary ---
Author Organization [facility] Address [facility] [place] [address] Care Team Providers Care Grounds Maintenance Manager Name Role Phone Ilya Medina MD Primary Care Provider [phone] Reason for Visit * Reason Comments Cancer No pain Encounter Details Date Type Department Care Team (Latest Contact Info) Description 02/05/2022 11:40 AM EDT Office [place] [phone] Apolinar Hernández MD [facility] [place] [address] Malignant neoplasm of bones of skull and [...] Hernández MD - 02/05/2022 11:[address] 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 Driving again withoutlimitations. 01/30/22: [...] Refill ??? Miscellaneous Medical Supply Misc [place] [facility]Non-Drug; Combo Route) [...] 0.54) performed by Apolinar Hernández MD at [facility] OR ??? PRG SOMATOSENSORY TEST, ANY/ALL PER. NERVES, TRUNK OR HEAD Left 06/28/2021 FACIAL NERVE MONITORING, SETUP PERIPHERAL (WRVU 0.54) performed by Apolinar Hernández MD at [facility] ??? PRO ADJ TISS TRANSFER/REARRANGEMENT ANY AREA 30.1-60 SQCM Left 06/28/2021 ADJACENT TISSUE TRANSFER OR REARRANGEMENT; 30.1 TO 60.0 SQ CM, HEAD/NECK (WRVU 12.65) performed by Jose D Hoang MD at [facility] ??? PRO COLONOSCOPY, BIOPSY 10/09/2012 COLONOSCOPY FLEXIBLE, WITH BX performed by Xiang Owen MD at [facility] END[facility] ? ? PRO DEBRIDEMENT MUSCLE AND FASCIA 20 SQ CM/< Left 08/15/2021 DEBRIDEMENT SKIN, SUBCU, MUSCLE, HEAD/NECK (WRVU 2.7) performed by Jose D Hoang MD at [facility] ??? PRO EXC PAROTD, TOTAL, DISSECT 5TH NERV Left 06/28/2021 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, TOTAL, WITH DISSECTION AND PRESERVATION OF FACIAL NERVE(WRVU 19.53) performed by Jose D Hoang MD at [facility] ??? PRO MASTOIDECTOMY, COMPLETE Left 06/28/2021 MASTOIDECTOMY, COMPLETE (WRVU 12.56) performed by Apolinar Hernández MD at [facility] OR ??? PRO MICROSURG TECHNIQUES, REQ OPER MICROSCOPE Left 03/31/2021 MICROSCOPE USE (WRVU 3.46) performed by Apolinar Hernández MD at [facility] OR ??? PRO MICROSURG TECHNIQUES, REQ OPER MICROSCOPE N/A 06/28/2021 MICROSCOPE USE (WRVU 3.46) performed by Apolinar Hernández MD at [facility] ? ? PRO MUSCLE MYOCUTANEOUS/FASCIOUCUTANEOUS FLAP HEAD&NECK W/NAMED VASC PEDCL Left 06/28/2021 FLAP, MYOCUTANEOUS OR FASCIOCUTANEOUS, HEAD & NECK W NAMED VASC PEDICLE performed by Jose D Hoang MD at [facility] OR ? ? PRO MUSCLE MYOCUTANEOUS/FASCIOUCUTANEOUS FLAP HEAD&NECK W/NAMED VASC PEDCL Left 08/15/2021 FLAP, MYOCUTANEOUS OR FASCIOCUTANEOUS, HEAD & NECK W NAMED VASC PEDICLE performed by Jose D Hoang MD at [facility] OR ??? PRO REMOVAL NODES, NECK, CERV MOD RAD Left 06/28/2021 @CERVICAL LYMPHADENECTOMY (MODIFIED RADICAL NECK DISSECTION) (WRVU 23.95) performed by Jose D Hoang MD at [facility] OR ??? PRO RESECT TEMPORAL BONE, CHIEF METEOROLOGIST APPRCH Left 06/28/2021 @RESECTION TEMPORAL BONE, EXTERNAL APPROACH (WRVU 37.42) performed by [facility]olinar [facility] ??? PRO TYMPANOPLASTY Left 03/31/2021 TYMPANOPLASTY (WRVU 10.05) performed by Apolinar Hernández MD at [facility] ??? PRO UPPER GI ENDOSCOPY, BIOPSY 03/20/2011 UPPER GASTROINTESTINAL ENDOSCOPY,WITH BIOPSY SINGLE OR MULTIPLE performed by JORDAN RAMOS at [facility] Family and Social History Family History: No family history on file. Social History: [place] [address] Social History Socioeconomic History ??? 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 The assessment and plan were formulated in discussion with me and I agree with them as documented. Total time spent counseling and coordinating patient care 30 minutes. 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
--- OUTSIDE RECORDS SUMMARY | 2024-04-29 10:24 | XMS_ITS | Encounter Summary ---
Author Organization [facility] [place] [address] Care Team Providers Care Bowl Turner Name Role Phone Ilya Medina MD Primary Care Provider [phone] Encounter Details Date Type Department Care Team (Late st Contact Info) Description 10/25/2021 9:00 AM EDT Office Visit Hematology/Oncology at [address] [address] [facility] DR [place] [address] Malignant neoplasm of bones of skull and [...] EST Office Visit Radiation Oncology at [address] [address] Tyrese Fitzgerald MD [facility] [place] [address] documented as of this encounter Visit Diagnoses Diagnosis 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
--- OUTSIDE RECORDS SUMMARY | 2024-04-29 10:24 | XMS_ITS | Encounter Summary ---
Author Organization Count Includes [facility] Address [facility] [place] [address] Care Team Providers Care Commercial Housekeeper Name Role Phone Ilya Medina MD Primary Care Provider [phone] Encounter Details Date Type Department Care Team (Late st Contact Info) Description 09/15/2021 4:00 PM EDT Office [place] [address] Jayne Darby MD [facility] [place] [address] Cancer of temporal bone Social History Tobacco [...] Progress Notes * Jayne Darby MD - 09/15/2021 4:00 PM EDT OTOLARYNGOLOGY - HEAD & NECK SURGERY OUTPATIENT CLINIC FOLLOW-UP NOTE Name: Suman Warner Age/Sex: 66 y.o. male ENT Attending: Dr. Hoang Patient ID Suman Warner is a 66 y.o. 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 Jose D Hoang, [facility] route note. Recommendations: 1. 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
--- OUTSIDE RECORDS SUMMARY | 2024-04-29 10:24 | XMS_ITS | Encounter Summary ---
Author Organization [facility] [place] [address] Care Team Providers Care Peanut Shaker Name Role Phone Ilya Medina MD Primary Care Provider Encounter Details Date Type Department Care Team (Late st Contact Info) Description 10/04/2021 1:00 PM EDT Office Visit Hematology/Oncology at [address] [phone] [facility] [place] [address] Malignant neoplasm of bones of skull and [...] EST Office Visit Radiation Oncology at [address] [phone] Tyrese Fitzgerald MD [facility] [place] [address] documented as of this encounter Visit Diagnoses Diagnosis 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
--- OUTSIDE RECORDS SUMMARY | 2024-04-29 10:24 | XMS_ITS | Encounter Summary ---
Author Organization [facility] Address [facility] [place] [address] Care Team Providers Care Manager Performance Name Role Phone Ilya Medina MD Primary Care Provider [phone] Reason for Visit * Reason Comments On Treatment Visit Encounter Details Date Type Department Care Team (Late st Contact Info) Description 10/24/2021 9:15 AM EDT Office Visit Radiation Oncology at [address] [phone] Maria E Ace MD [facility] [place] [address] Malignant neoplasm of bones of skull and [...] a 66 y.o. 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 ?? Alimentation: real estate administrator following ?? 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
--- OUTSIDE RECORDS SUMMARY | 2024-04-29 10:24 | XMS_ITS | Encounter Summary ---
Author Organization [facility] [place] [address] Care Team Providers Care Creative Consultant Name Role Phone Ilya Medina MD Primary Care Provider [phone] Encounter Details Date Type Department Care Team (Late st Contact Info) Description 10/05/2021 [place] [address] Maria Elena Fernández Social History [...] AM EST Office Visit Radiation Oncology at [address] [address] Tyrese Fitzgerald MD [facility] [place] [address] documented as of this encounter Visit Diagnoses Not on filedocumented in this encounter Care Teams Creative Consultant Relationship 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
--- OUTSIDE RECORDS SUMMARY | 2024-04-29 10:24 | XMS_ITS | Encounter Summary ---
Author Organization [facility] Address [facility] [place] [address] Care Team Providers Care Heel Painter Name Role Phone Ilya Medina MD Primary Care Provider [phone] Encounter Details Date Type Department Care Team (Late st Contact Info) Description 08/24/2021 1:00 PM EDT Office Visit [place] [address] Jayne Darby MD [facility] [place] [address] Cancer of temporal bone Social History Tobacco [...] Warner is a 66 y.o. 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
--- OUTSIDE RECORDS SUMMARY | 2024-04-29 10:24 | XMS_ITS | Encounter Summary ---
Author Organization [facility] [place] [address] Care Team Providers Care Paint Formulator Name Role Phone Ilya Medina MD Primary Care Provider [phone] Encounter Details Date Type Department Care Team (Late st Contact Info) Description 10/18/2021 10:00 AM EDT Office Visit Hematology/Oncology at [address] [address] [facility] DR HEMATOLOGY [place] [address] Malignant neoplasm of bones of skull and [...] EST Office Visit Radiation Oncology at [address] [phone] Tyrese Fitzgerald MD [facility] [place] [address] documented as of this encounter Visit Diagnoses Diagnosis 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
--- OUTSIDE RECORDS SUMMARY | 2024-04-29 10:24 | XMS_ITS | Encounter Summary ---
Author Organization [facility] Address [facility] [place] [address] Care Team Providers Care Chemists Name Role Phone Ilya Medina MD Primary Care Provider Encounter Details Date Type Department Care Team (Late st Contact Info) Description 09/27/2021 12:00 PM EDT Office Visit Radiation Oncology at [address] [phone] Tyrese Fitzgerald MD [facility] [place] [address] Malignant neoplasm of bones of skull and [...] a 66 y.o. 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 Alimentation: warehouse laborer following ?? 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
--- OUTSIDE RECORDS SUMMARY | 2024-04-29 10:24 | XMS_ITS | Encounter Summary ---
Author Organization [facility] [place] [address] Care Team Providers Care Rn Triage Name Role Phone Ilya Medina MD Primary Care Provider [phone] Encounter Details Date Type Department Care Team (Late st Contact Info) Description 09/12/2021 Telephone [place] [address] Shabnam Sherman Social History Tobacco [...] Called and left voicemail for patient at [phone] regarding appointment on 09/[address] Sanders to 4:00. Provided appt info and requested call back to confirm change in appts documented in this encounter Plan of Treatment Upcoming Encounters Date Type Department Care Team (Late st Contact Info) Description 04/29/2024 11:00 AM EST Office Visit Radiation Oncology at [address] [phone] Tyrese Fitzgerald MD [facility] [address] documented as of this encounter Visit Diagnoses Not on filedocumented in this encounter Care Teams Rn Triage Relationship 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
--- OUTSIDE RECORDS SUMMARY | 2024-04-29 10:24 | XMS_ITS | Encounter Summary ---
Author Organization [facility] Address [facility] [place] [address] Care Team Providers Care Agricultural Extension Officer Name Role Phone Ilya Medina MD Primary Care Provider [phone] Encounter Details Date Type Department Care Team (Late st Contact Info) Description 10/11/2021 9:30 AM EDT Office Visit Radiation Oncology at [address] [phone] Tyrese Fitzgerald MD [facility] [place] [address] Malignant neoplasm of bones of skull and [...] a 66 y.o. 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 Alimentation: clinical operations consultant following ?? 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
--- OUTSIDE RECORDS SUMMARY | 2024-04-29 10:24 | XMS_ITS | Encounter Summary ---
Author Organization [facility] [place] [address] Care Team Providers Care Sales Order Specialist Name Role Phone Ilya Medina MD Primary Care Provider [phone] Encounter Details Date Type Department Care Team (Late st Contact Info) Description 10/05/2021 Notes Only Radiation Oncology at [address] [phone] Latasha Cali RN Social History [...] 1:56 PM EDT Radiation Oncology Nurse Note [place], [place] Radiation Therapists asked nurse to see [...] picked him up to bring him to [facility]. Telephone call report given to Sharri at [facility] ER and Dr Fitzgerald's recent clinic note was faxed to them. Dr Fitzgerald informed via this note documented in this encounter Plan of Treatment Upcoming Encounters Date Type Department Care Team (Late st Contact Info) Description 04/29/2024 11:00 AM EST Office Visit Radiation Oncology at [address] [phone] Tyrese Fitzgerald MD [facility] [place] [address] documented as of this encounter Visit Diagnoses Not on filedocumented in this encounter Care Teams Sales Order Specialist Relationship 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
--- OUTSIDE RECORDS SUMMARY | 2024-04-29 10:24 | XMS_ITS | Encounter Summary ---
Author Organization [facility] Address [facility] [place] [address] Care Team Providers Care Oracle E Business Developer Name Role Phone Ilya Medina MD Primary Care Provider [phone] Encounter Details Date Type Department Care Team (Late st Contact Info) Description 09/20/2021 3:45 PM EDT Office Visit Radiation Oncology at [address] [phone] Tyrese Fitzgerald MD [facility] [place] [address] Malignant neoplasm of bones of skull and [...] a 66 y.o. 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 Alimentation: collection manager following ?? 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
--- OUTSIDE RECORDS SUMMARY | 2024-04-29 10:24 | XMS_ITS | Encounter Summary ---
Author Organization [facility] [place] [address] Care Team Providers Care Special Event Assistant Name Role Phone Ilya Medina MD Primary Care Provider [phone] Encounter Details Date Type Department Care Team (Latest Contact Info) Description 10/02/2021 Unscheduled Encounter Radiation Oncology at [address] [phone] Negin Damon RN Nausea without [...] for ondansetron which is being sent to [facility] in [place] per patient request. Instructed patient to let us know if this is not helpful or if he develops additional symptoms. Plan: Weekly otv with Dr. Fitzgerald on Saturday. Daily nursing otv prn. documented in this encounter Plan of Treatment Upcoming Encounters Date Type Department Care Team (Late st Contact Info) Description 04/29/2024 11:00 AM EST Office Visit Radiation Oncology at [address] [phone] Tyrese Fitzgerald MD [facility] [place] [address] documented as of this encounter Visit Diagnoses Diagnosis Nausea without vomiting documented in this encounter Care Teams Special Event Assistant Relationship 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
--- OUTSIDE RECORDS SUMMARY | 2024-04-29 10:24 | XMS_ITS | Encounter Summary ---
Author Organization [facility] [place] [address] Care Team Providers Care Consultant Education Name Role Phone Ilya Medina MD Primary Care Provider [phone] Encounter Details Date Type Department Care Team (Late st Contact Info) Description 10/30/2021 9:30 AM EDT Office Visit Hematology/Oncology at [address] [phone] [facility] [place] [address] Malignant neoplasm of bones of skull and [...] Wyatt, RD - 10/30/2021 9:30 AM EDT [facility] Nutrition Assessment Progress Note Suman Warner [...] EST Office Visit Radiation Oncology at [address] [phone] Tyrese Fitzgerald MD [facility] [place] [address] documented as of this encounter Visit Diagnoses Diagnosis 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
--- OUTSIDE RECORDS SUMMARY | 2024-04-29 10:24 | XMS_ITS | Encounter Summary ---
Author Organization [facility] Address [facility] [place] [address] Care Team Providers Care Machine Long Goods Helper Name Role Phone Ilya Medina MD Primary Care Provider [phone] Encounter Details Date Type Department Care Team (Late st Contact Info) Description 10/18/2021 9:30 AM EDT Office Visit Radiation Oncology at [address] [phone] Tyrese Fitzgerald MD [facility] [address] Malignant neoplasm of bones of skull and [...] a 66 y.o. 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 Alimentation: traffic analysis technician following ?? 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
--- OUTSIDE RECORDS SUMMARY | 2024-04-29 10:24 | XMS_ITS | Encounter Summary ---
Author Organization [facility] [place] [address] Care Team Providers Care Ichthyologist Name Role Phone Ilya Medina MD Primary Care Provider Encounter Details Date Type Department Care Team (Late st Contact Info) Description 08/31/2021 Telephone Radiation Oncology at [address] [phone] Christiano Davidson Social History Tobacco [...] EST Office Visit Radiation Oncology at [address] [phone] Tyrese Fitzgerald MD [facility] DR [place] [address] documented as of this encounter Visit Diagnoses Not on filedocumented in this encounter Care Teams Ichthyologist Relationship 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
--- OUTSIDE RECORDS SUMMARY | 2024-04-29 10:24 | XMS_ITS | Encounter Summary ---
Author Organization [facility] Address [facility] [place] [address] Care Team Providers Care Netezza Developer Name Role Phone Ilya Medina MD Primary Care Provider [phone] Encounter Details Date Type Department Care Team (Late st Contact Info) Description 09/01/2021 3:00 PM EDT Office [place] [address] Jayne Darby MD [facility] [place] [address] Cancer of temporal bone Social History Tobacco [...] Warner is a 66 y.o. 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
--- OUTSIDE RECORDS SUMMARY | 2024-04-29 10:24 | XMS_ITS | Encounter Summary ---
Author Organization [facility] Address [facility] [place] [address] Care Team Providers Care Mud Logger Name Role Phone Ilya Medina MD Primary Care Provider Reason for Visit * Auth/Cert Specialty Diagnoses [...] Expiration Date Visits Re quested Visits Authorized [id number] 1 1 Encounter Details Date Type Department Care Team (Latest Contact Info) Description 08/15/2021 11:43 AM EDT - 08/18/2021 12:20 PM EDT Hospital Encounter [address] [place] [phone] Jose D Hoang MD [facility] [place] [address] Encounter for post surgical wound check; Cancer [...] conjunctiva healthy Ears: Hearing aid on RIGHT, [place] dressing in place on LEFT, flap site [...] NEURO INTERP ONLY CLINICAL HISTORY: 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 Discharge Info [...] canal. Replace this once daily. Keep the [place] dressing on to keep pressure to the [...] -You can reach the ENT clinic at [phone] for appointment questions. -The ENT triage nurse is available at [phone] -For urgent issues during evenings (5 PM - 7 AM) and weekends the ENT resident home improvement contractor can be reached through the main hospital sew out operator at [phone] Follow Up: You will need to follow [...] 1:00 PM Jayne Darby MD Otolaryngology at [facility] Arrive at: Field Staff Area [phone] 10/06/2021 8:50 AM [facility] MR 6 MRI at [facility] Arrive at: 3Z INTERVENTIONAL RADIOLOGY [phone] 10/06/2021 11:30 AM Apolinar Hernández MD Otolaryngology at [facility] Arrive at: Field Staff Area [phone] General Instructions None __ Your Medications New [...] Center 08/25/2021 1:00 PM Jayne Darby MD [facility] 10/06/2021 8:50 AM [facility] MR 6 MH MRI [facility] Rad 10/06/2021 11:30 AM Apolinar Hernández MD [facility] Outpatient Services/Studies: No discharge procedures on file. Primary Care Doctor: Ilya Medina MD [phone] Signed: YUE Huddleston 08/18/2021 Routed to Estefany [...] -You can reach the ENT clinic at [phone] for appointment questions. -The ENT triage nurse is available at [phone] -For urgent issues during evenings (5 PM - 7 AM) and weekends the ENT resident home improvement contractor can be reached through the main hospital sew out operator at [phone] Follow Up: You will need to follow [...] 1:00 PM Jayne Darby MD Otolaryngology at [facility] Arrive at: Field Staff Area [phone] 10/06/2021 8:50 AM [facility] MR 6 MRI at [facility] Arrive at: 3Z INTERVENTIONAL RADIOLOGY [phone] 10/06/2021 11:30 AM Apolinar Hernández MD Otolaryngology at [facility] Arrive at: Field Staff Area [phone] documented in this encounter Medications at Time [...] PGY2 08/18/21 9:48 AM ENT Team Pager: [phone] * Tiny Alfaro, RN - 08/18/2021 7:37 AM EDT MAURO removed plan for patient to go home today per provider * Allegra Aldana MD - 08/17/2021 6:55 AM EDT OTOLARYNGOLOGY - HEAD & NECK SURGERY DAILY PROGRESS NOTE Name: Suman Warner Age/Sex: 66 y.o. male Attending: Jose D Hoang MD Hospital Day: 3 2 Days Post-Op Patient ID/Reason for Admission Suamn Warner is a 66 y.o. male with [...] PGY2 08/17/21 6:55 AM ENT Team Pager: [phone] * Caridad Sifuentes MD - 08/16/2021 10:46 [...] PGY1 08/16/21 10:46 AM ENT Team Pager: [phone] * Alyce Monroe MD - 08/15/2021 10:20 [...] Pressure dressings in place over L mastoid. [place] visible on neck overlying L neck drain [...] status Alyce Monroe MD PGY1 General Surgery [facility] documented in this encounter H&P Notes * [...] Ok to proceed with scheduled operation. Caridad Sifuentse MD, PGY1 08/15/21 1:02 PM ENT Team Pager: [phone] documented in this encounter Miscellaneous Notes * [...] MEDICARE SUPPLEMENT Prescription Coverage: Yes Preferred Pharmacy: [id number] - [place], [place] - [address] [facility] & [address] [address] [facility] - [place], [place] - [address] [facility] [address] [address] This plan was formulated with input from patient, and team. All are in agreement with plan. I have verbally reviewed Medicare Discharge Rights with patient. Patient verbalizes understanding of right to appeal this discharge if feeling not medically ready. Offered a copy of this letter. Barbara Baez RN BSN CM Neurology Ring PackerCommunications Project Lead of Care Management Pager [phone] * Plan of Care - Tiny Alfaro [...] COVID test: Lab Results Component Value Date [id number] Not Detected 08/15/2021 Present on Admission: ??? S/P debridement Hospitalizations Within the Past 30 Days: no previous admission in last 30 days Patient receiving hospital care under Inpatient status. Admission order reviewed. Primary Insurance on file: MEDICARE Secondary Insurance on file:@ Primary care provider on file: Ilya Medina MD [phone] Pharmacy: [id number] [place], [place] - [address] [place] [address] AT [facility] & [address] [address] [facility] - [place], [place] - [address] [facility] [address] [address] Advance Care Planning: Attempt Cardiopulmonary Resuscitation - Inpatient Received -Advanced Directive: Yes, on file Who is your DPOA-HC?: Spouse Current Functional Ability: Independent Functional Status Prior to Admission: Independent Home Environment: Others in the home: spouse. Current Living Arrangements: home/apartment/condo. Accessibility Concerns:two story home, no barriers. Current DME: none [address] [facility] [address] Social & Family Supports: All names listed [...] home via when medically ready. Registered Nurse Ring Packer / Supervisor Electronics Testing will continue to follow patient???s progress and remain available if situation changes for coordination of care, psychosocial support and/or discharge planning. Pt is open to [facility] again if drain needs to staying in at discharge, otherwise is nothomebound. Office of Care Management Barbara Baez EQUITIES TRADER CM Neurology Ring PackerCommunications Project Lead of Care Management Pager [phone] * Plan of Care - Tiny Alfaro [...] Hoang MD - 08/15/2021 3:21 PM EDT [facility] Operative Note Patient Name: Suman Warner : [id number] MR#: [id number] Case Date: 08/15/2021 Surgeon: Jose D Hoang MD Divakar, Prashanthi, MD Bell, Rebecca, MD Higgins, [place], [place] Diagnosis: Flap Necrosis Procedure: 1. Debridement of Left Submental Flap 2. Left Temporalis Muscle Pedicled Flap (6 cm x 6 cm) Anesthesia: General via Oral ETT Estimated Blood Loss: 75 cc HPI/Surgical Indications: Suman Warner is a 66 y.o. 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??in [...] EST Office Visit Radiation Oncology at [address] [phone] Tyrese Fitzgerald MD [facility] [place] [address] documented as of this encounter Procedures Procedure [...] Debridement Muscle And Fascia 20 Sq Cm/< (70235) Yes 08/15/2021 2:23 PM EDT Encounter for post surgical wound check Cancer of temporal bone Muscle Myocutaneous/Fasciouc utaneous Flap Head&Neck W/Named Vasc Pedcl (13613) Yes 08/15/2021 2:23 PM EDT Encounter for post surgical wound check Cancer of temporal bone RAPID COVID-19 PCR ([facility]) Routine 08/15/2021 1:11 PM EDT FLAP, [...] 3:38 AM EDT) Neutrophil % 87.3 % [facility] Neutrophil Absolute 6.86(H) 1.70 - 6.10 x10(3)/mc L [facility] Lymph % 8.1 % [facility] Lymphocytes Abs 0.6(L) 0.9 - 3.2 x10(3)/mc L [facility] Monocyte % 4.2 % [facility] Monocyte Abs 0.3 0.3 - 0.9 x10(3)/mc L [facility] Eos % 0.0 % [facility] Eosinophils Abs 0.0 0.0 - 0.4 x10(3)/[facility] Basophil % 0.1 % [facility] Baso Absolute 0.0 0.0 - 0.1 x10(3)/[facility] Immature Gran % 0.30 % [facility] Comment: Immature granulocytes(IG's)percentage and absolute count will include metamyelocytes, myelocytes, and promyelocytes. Blood smears from CBCs yielding IG's will be scanned manually for concordance. If this scan disagrees with the automated IG or if promyelocytes are noted, a manual differential will be performed. Immature Gran Absolute 0.02 0.00 - 0.04 x10(3)/[facility] Blood 08/16/2021 3:38 AM EDT 08/16/2021 3:53 AM EDT Narrative Resulting Agency Comment Spec In Lab Elsie TURNER HEMATOLOGY ORDER CHARI [facility] [place] [address] * Hemogram (08/16/2021 3:38 AM EDT) White Blood Cell 7.9 4.0 - 9.5 x10(3)/[facility] Red Blood Cell 4.82 4.58 - 5.54 x10(6)/[facility] Hemoglobin 15.1 13.7 - 16.5 g/dL [facility] Hematocrit 42.8 40.5 - 48.5 % [facility] Mean Cell Volume 88.8 82.9 - 93.[address] [facility] Mean Cell Hemoglobin 31.3 27.5 - 32.[address] [facility] Mean Cell Hemoglobin Concentration 35.3 32.0 - 35.7 g/dL [facility] Platelet 208 145 - 357 x10(3)/[facility] RDW Standard Deviation 40.2 36.0 - 45.[address] [facility] RDW coefficient of variation 12.3 11.4 - 13.8 % [facility] Mean Platelet Volume 9.9 7.6 - 12.[address] [facility] NRBC% auto 0.0 % [facility] NRBC Absolute 0.000 0.000 - 0.000 x10(3)/[facility] Blood 08/16/2021 3:38 AM EDT 08/16/2021 3:53 AM EDT Narrative Resulting Agency Comment Spec In Lab Elsie TURNER HEMATOLOGY ORDER CHARI Performing Organization Address [facility] de Phone Number [facility] [place] [address] * Phosphorus (08/16/2021 3:38 AM EDT) Phosphorus 2.9 2.5 - 4.5 mg/dL [facility] Blood 08/16/2021 3:38 AM EDT 08/16/2021 3:53 AM EDT Narrative Resulting Agency Comment Spec In Lab Jose D Hoang MD CHEMISTRY ORDERABL ES Performing Organization Address [facility] de Phone Number [facility] [place] [address] * (ABNORMAL) Magnesium (08/16/2021 3:38 AM EDT) Magnesium 0.62(L) 0.69 - 1.07 mmol/L [facility] Blood 08/16/2021 3:38 AM EDT 08/16/2021 3:53 AM EDT Narrative Resulting Agency Comment Spec In Lab Jose D Hoang MD CHEMISTRY ORDERABL ES Performing Organization Address [facility] de Phone Number [facility] [place] [address] * (ABNORMAL) Basic Metabolic Panel (non-fasting) (08/16/2021 3:38 AM EDT) Glucose 199 65 - 199 mg/dL [facility] Comment:Diabetes: >=200 mg/d L plus symptoms Blood Urea Nitrogen 16 10 - 20 mg/dL [facility] Creatinine 0.88 0.80 - 1.50 mg/dL [facility] Sodium 135 135 - 145 mmol/L [facility] Potassium 4.3 3.5 - 5.0 mmol/L [facility] Comment: Please note: ??Patients with WBC >100,000 may have falsely elevated Potassium levels. ??For accurate Potassium quantification in these patients send serum separator tube (gold top) for subsequent determinations. ??Contact the Clinical Chemistry Laboratory if there are any questions. Chloride 102 98 - 107 mmol/L [facility] Carbon Dioxide 20(L) 22 - 31 mmol/L [facility] Anion Gap 13 5 - 15 mmol/L [facility] Calcium 8.8 8.5 - 10.5 mg/dL [facility] Est Glomerular Filtration Rate 90 >=60 mL/min/1. 73 m?? [facility] Comment: This patient? s estimated [...] Jose D Hoang MD CHEMISTRY ORDERABL ES [facility] [place] [address] * COVID-19 PCR (08/15/2021 1:11 PM EDT) SARS-CoV-2 RNA (Rapid) Not Detected Not Detected [facility] Comment: This result should be [...] using the Simplexa COVID-19 Direct Assay by [employer] as authorized by the FDA issued Emergency [...] Department of Pathology and Laboratory Medicine at [facility], certified under the Clinical Laboratory Improvement [...] fact sheets at the following FDA website: https://www.fda.gov/medical-devices/myvevybhszx-vqqjmlz-3437-qfmiv-93-gvipbhwra- use-a xohcnddzjohvo-mvtsivl-djhlpnr/brpvo-kphmmxlcymz-qnzp SARS-CoV-2 Source GAS JOCKEY Swab MA RY [facility] Nasopharyngeal Swab 08/16/19 1:11 PM EDT 08/15/2021 5:09 PM EDT Comment:Symptoms->Surveillan ce Narrative Resulting Agency Comment Spec In Lab Jose D Hoang MD MICROBIOLOGY - GEN ERAL ORDERABLES Performing Organization Address City/State/[facility] Co de Phone Number [facility] [place] [address] documented in this encounter Visit Diagnoses Diagnosis [...] Routine documented in this encounter Care Teams Mud Logger Relationship 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
--- OUTSIDE RECORDS SUMMARY | 2024-04-29 10:24 | XMS_ITS | Encounter Summary ---
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, except mandible Procedures Simulation for Radiation Therapy Planning Tyrese Fitzgerald MD [facility] [place] [address] [facility] Rad Onc Office [address] [place] [phone] Referral ID Status Reason Start Date Expiration Date V isits Requested Visits Authorized [id number] Closed Consult, Test & Treat 08/28/2021 08/28/2022 1 1 Encounter Details Date Type Department Care Team (Late st Contact Info) Description 08/28/2021 Orders Only [place] [address] Tyrese Fitzgerald MD [facility] [address] Malignant neoplasm of bones of skull and [...] EST Office Visit Radiation Oncology at [address] [phone] Tyrese Fitzgerald MD [facility] [place] [address] Scheduled Orders Name Type Priority Associated Diagnoses Orde r Schedule Simulation for Radiation Therapy Planning Procedures Routine 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
--- OUTSIDE RECORDS SUMMARY | 2024-04-29 10:24 | XMS_ITS | Encounter Summary ---
Author Organization [facility] Address [facility] [place] [address] Care Team Providers Care Green Building Design Specialist Name Role Phone Ilya Medina MD Primary Care Provider [phone] Encounter Details Date Type Department Care Team (Late st Contact Info) Description 12/19/2021 Orders Only [place] [address] Tyrese Fitzgerald MD [facility] [address] RADI[place] [address] Malignant neoplasm of bones of skull and [...] EST Office Visit Radiation Oncology at [address] [phone] Tyrese Fitzgerald MD [facility] DR [place] [address] documented as of this encounter Visit Diagnoses Diagnosis 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
--- OUTSIDE RECORDS SUMMARY | 2024-04-29 10:24 | XMS_ITS | Encounter Summary ---
Author Organization [facility] Address [facility] [place] [address] Care Team Providers Care Fiberglass Technician Name Role Phone Ilya Medina MD Primary Care Provider [phone] Encounter Details Date Type Department Care Team (Late st Contact Info) Description 10/04/2021 12:00 PM EDT Office Visit Radiation Oncology at [address] [phone] Tyrese Fitzgerald MD [facility] [place] [address] Nausea without vomiting Social History Tobacco Use [...] documented in this encounter Progress Notes * Tryese Fitzgerald MD - 10/04/2021 12:00 PM EDT ON TREATMENT VISIT NOTE Suman Warner is a 66 y.o. 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 Alimentation: fly raiser lockstitch following ?? Weight stable, all by mouth [...] EST Office Visit Radiation Oncology at [address] [address] Tyrese Fitzgerald MD [facility] DR [place] [address] documented as of this encounter Visit Diagnoses Diagnosis Nausea without vomiting documented in this encounter Care Teams Fiberglass Technician Relationship 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
--- OUTSIDE RECORDS SUMMARY | 2024-04-29 10:24 | XMS_ITS | Encounter Summary ---
Author Organization [facility] Address [facility] Alyssia [place] [address] Care Team Providers Care Magnetic Doctor Name Role Phone Ilya Medina MD Primary Care Provider [phone] Reason for Visit * Reason Comments IV Access For SIM Encounter Details Date Type Department Care Team (Late st Contact Info) Description 09/06/2021 8:00 AM EDT Infusion Hematology Oncology at [address] [address] Malignant neoplasm of bones of [...] EST Office Visit Radiation Oncology at [address] [address] Tyrese Fitzgerald MD [facility] [place] [address] documented as of this encounter Visit Diagnoses Diagnosis 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
--- OUTSIDE RECORDS SUMMARY | 2024-04-29 10:24 | XMS_ITS | Encounter Summary ---
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, except mandible Procedures Simulation for Radiation Therapy Planning Tyrese Fitzgerald MD [facility] [place] [address] St Rad Onc Office [address] [place] [phone] Referral ID Status Reason Start Date Expiration Date V isits Requested Visits Authorized [id number] Closed Consult, Test & Treat 08/28/2021 08/28/2022 1 1 Encounter Details Date Type Department Care Team (Late st Contact Info) Description 09/06/2021 8:30 AM EDT Ancillary Appointment Radiation Oncology at [address] [phone] Tyrese Fitzgerald MD [facility] [place] [address] Social History Tobacco Use Types Packs/Day Years [...] CT Contrast Simulation Nursing Note: Suman Warner [id number] 08/07/1985 IV ACCESS: PIV GAUGE: 20 Please [...] EST Office Visit Radiation Oncology at [address] [phone] Tyrese Fitzgerald MD [facility] [place] [address] Scheduled Orders Name Type Priority Associated Diagnoses Orde r Schedule Simulation for Radiation Therapy Planning Procedures Routine 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
--- OUTSIDE RECORDS SUMMARY | 2024-04-29 10:24 | XMS_ITS | Encounter Summary ---
Author Organization [facility] [place] [address] Care Team Providers Care Handle Bender Name Role Phone Ilya Medina MD Primary Care Provider [phone] Encounter Details Date Type Department Care Team (Late st Contact Info) Description 09/08/2021 Telephone Hematology [place] [address] Cuca Boo Social History Tobacco [...] - 09/08/2021 11:17 AM EDT Community [facility] Tying In Machine Operator received notification that [facility] awarded $350 for Home Equity loan . Original monthly payment is $731.69. I have lvm with Suman. Cuca Boo documented in this encounter Plan of Treatment Upcoming Encounters Date Type Department Care Team (Late st Contact Info) Description 04/29/2024 11:00 AM EST Office Visit Radiation Oncology at [address] [phone] Tyrese Fitzgerald MD [facility] [place] [address] documented as of this encounter Visit Diagnoses Not on filedocumented in this encounter Care Teams Handle Bender Relationship Specialty Start Date End Date Ilya Medina MD PCP - General 09/25/16 documented as of this encounter
--- OUTSIDE RECORDS SUMMARY | 2024-04-29 10:24 | XMS_ITS | Encounter Summary ---
Author Organization [facility] [place] [address] Care Team Providers Care Environmental Issues Instructor Name Role Phone Ilya Medina MD Primary Care Provider Encounter Details Date Type Department Care Team (Late st Contact Info) Description 11/02/2021 Telephone Radiation Oncology at [address] [phone] Latasha Cali RN Social History [...] PM EDT Radiation Oncology Nurse Telephone Note [facility] [place] [place] ----- Message from Tyrese Fitzgerald MD sent at 11/02/2021 2:01 PM EDT ----- Please call him and let him know to continue at this time. ----- Message ----- From: Latasha Cali RN Sent: 11/02/2021 1:56 PM EDT To: Tyrese Fitzgerald MD, [facility] Rad Onc Nurse ----- Message ----- From: Gail Membreno Sent: 11/02/2021 1:13 PM EDT To: [facility] Rad Onc Nurse Suman called in today wondering if he can stop using the special toothpaste and the guards that has prescribed. Best call back number [phone] 11/02/21 16:00 Telephone call to patient to relay Dr Fitzgerald's message. Patient verbalized understanding to continue using the fluoride toothpaste and guard. He states he has no other questions or concerns at this time. We also reviewed that he has an appointment with Dr Fitzgerald on 11/08/21 at 2PM. documented in this encounter Plan of Treatment Upcoming Encounters Date Type Department Care Team (Late st Contact Info) Description 04/29/2024 11:00 AM EST Office Visit Radiation Oncology at [address] [address] Tyrese Fitzgerald MD [facility] DR [place] [address] documented as of this encounter Visit Diagnoses Not on filedocumented in this encounter Care Teams Environmental Issues Instructor Relationship Specialty Start Date End Date Ilya Medina MD PCP - General 09/25/16 documented as of this encounter
--- OUTSIDE RECORDS SUMMARY | 2024-04-29 10:24 | XMS_ITS | Encounter Summary ---
Author Organization [facility] Address [facility] [place] [address] Care Team Providers Care Ship Pilot Name Role Phone Ilya Medina MD Primary Care Provider [phone] Encounter Details Date Type Department Care Team (Late st Contact Info) Description 11/15/2021 9:30 AM EDT Office Visit Radiation Oncology at [address] [phone] Tyrese Fitzgerald MD [facility] [place] [address] Malignant neoplasm of bones of skull and [...] a 66 y.o. 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 Alimentation: broadcast field supervisor following ?? 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
--- OUTSIDE RECORDS SUMMARY | 2024-04-29 10:24 | XMS_ITS | Encounter Summary ---
Author Organization [facility] Address [facility] [place] [address] Care Team Providers Care Entertainment Lawyer Name Role Phone Ilya Medina MD Primary Care Provider [phone] Encounter Details Date Type Department Care Team (Late st Contact Info) Description 10/31/2021 Notes [place] [address] Tyrese Fitzgerald MD [facility] [place] [address] Social History Tobacco Use Types Packs/Day Years [...] a 66 y.o. 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
--- OUTSIDE RECORDS SUMMARY | 2024-04-29 10:24 | XMS_ITS | Encounter Summary ---
Author Organization [facility] [place] [address] Care Team Providers Care Associate Account Manager Name Role Phone Ilya Medina MD Primary Care Provider Encounter Details Date Type Department Care Team (Late st Contact Info) Description 08/21/2021 Telephone Hematology [place] [address] Cuca Boo Social History Tobacco [...] - 08/21/2021 1:22 PM EDT [facility] Nursing Assistants Teacher received call from Suman. He said he has the [employer] application and will be working on it shortly and will send it to me. He has received the gas card from [employer]. Cuca Boo documented in this encounter Plan of Treatment Upcoming Encounters Date Type Department Care Team (Late st Contact Info) Description 04/29/2024 11:00 AM EST Office Visit Radiation Oncology at [address] [phone] Tyrese Fitzgerald MD [facility] [address] documented as of this encounter Visit Diagnoses Not on filedocumented in this encounter Care Teams Associate Account Manager Relationship Specialty Start Date End Date Ilya Medina MD PCP - General 09/25/16 documented as of this encounter
--- OUTSIDE RECORDS SUMMARY | 2024-04-29 10:24 | XMS_ITS | Encounter Summary ---
Author Organization [facility] [place] [address] Care Team Providers Care Flow Trader Name Role Phone Ilya Medina MD Primary Care Provider [phone] Encounter Details Date Type Department Care Team (Late st Contact Info) Description 09/27/2021 11:30 AM EDT Office Visit Hematology/Oncology at [address] [phone] [facility] DR [place] [address] Malignant neoplasm of bones of skull and [...] EST Office Visit Radiation Oncology at [address] [phone] Tyrese Fitzgerald MD [facility] [place] [address] documented as of this encounter Visit Diagnoses Diagnosis 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
--- OUTSIDE RECORDS SUMMARY | 2024-04-29 10:24 | XMS_ITS | Encounter Summary ---
Author Organization [facility] [place] [address] Care Team Providers Care Pump Rebuilder Name Role Phone Ilya Medina MD Primary Care Provider [phone] Encounter Details Date Type Department Care Team (Latest Contact Info) Description 10/13/2021 Unscheduled Encounter Hematology/Oncology at [address] [phone] [facility] [place] [address] Malignant neoplasm of bones of skull and [...] AM EST Office Visit Radiation Oncology at [address] [phone] Tyrese Fitzgerald MD [facility] [place] [address] documented as of this encounter Visit Diagnoses Diagnosis 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
--- OUTSIDE RECORDS SUMMARY | 2024-04-29 10:24 | XMS_ITS | Encounter Summary ---
Author Organization [facility] Address [facility] [place] [address] Care Team Providers Care Clinical Services Professional Name Role Phone Ilya Medina MD Primary Care Provider [phone] Encounter Details Date Type Department Care Team (Late st Contact Info) Description 09/06/2021 Notes Only Hematology [place] [phone] Cuca Boo Social History Tobacco Use Types [...] - 09/06/2021 1:25 PM EDT Community [facility] Records Management Assistant submitted [facility] davie applicaton asking for assistance with his mortgage $652.28 and home equity $179, also requested [employer] gift card $250. I have also submitted davie application to [facility] for Home Equity loan $350. Original monthly paymentis $731.69. Cuca Boo documented in this encounter Plan of Treatment Upcoming Encounters Date Type Department Care Team (Late st Contact Info) Description 04/29/2024 11:00 AM EST Office Visit Radiation Oncology at [address] [phone] Tyrese Fitzgerald MD [facility] [place] [address] documented as of this encounter Visit Diagnoses Not on filedocumented in this encounter Care Teams Clinical Services Professional Relationship Specialty Start Date End Date Ilya Medina MD PCP - General 09/25/16 documented as of this encounter
--- OUTSIDE RECORDS SUMMARY | 2024-04-29 10:24 | XMS_ITS | Encounter Summary ---
Author Organization [facility] Alyssia [place] [address] Care Team Providers Care Psych Arnp Name Role Phone Ilya Medina MD Primary Care Provider [phone] Encounter Details Date Type Department Care Team (Late st Contact Info) Description 09/06/2021 Notes Only Radiation Oncology at [address] [phone] Wilma Lovett, GIS PHYSICAL SCIENTIST OFFICE OF CARE MANAGEMENT Social History Tobacco [...] EST Office Visit Radiation Oncology at [address] [phone] Tyrese Fitzgerald MD [facility] [address] [place] [address] documented as of this encounter Visit Diagnoses Not on filedocumented in this encounter Care Teams Psych Arnp Relationship Specialty Start Date End Date Ilya Medina MD PCP - General 09/25/16 documented as of this encounter
--- OUTSIDE RECORDS SUMMARY | 2024-04-29 10:24 | XMS_ITS | Encounter Summary ---
Author Organization [facility] [place] [address] Care Team Providers Care Adjunct Faculty Name Role Phone Ilya Medina MD Primary Care Provider [phone] Encounter Details Date Type Department Care Team (Late st Contact Info) Description 09/20/2021 3:45 PM EDT Office Visit Hematology/Oncology at [address] [phone] [facility] DR [place] [address] Malignant neoplasm of bones of skull and [...] Marito, RD - 09/20/2021 3:45 PM EDT [facility] Initial Assessment Patient Name: Suman Warner Diagnosis: [...] 24 hour recall /usual intake: Breakfast: Coffee, turkish muffin with jam or 2 toast with peanut butter Lunch: Leftover chicken and 1/2 cup macaroni and cheese or ravioli Dinner: Estonian takeout yesterday Snacks: Avoiding lately Beverages: Trying to drink a lot of water, 1-2 glasses of Lactaid milk per week Patient lives in [place] with his . 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
--- OUTSIDE RECORDS SUMMARY | 2024-04-29 10:24 | XMS_ITS | Encounter Summary ---
Author Organization [facility] [place] [address] Care Team Providers Care Emergency Medicine Specialist Name Role Phone Ilya Medina MD Primary Care Provider [phone] Encounter Details Date Type Department Care Team (Late st Contact Info) Description 10/18/2021 Telephone Hematology [place] [address] Cuca Boo Social History Tobacco [...] - 10/18/2021 1:52 PM EDT [facility] Asbestos Surveyor spoke to Suman today, [employer] awarded $652.28 [...] AM EST Office Visit Radiation Oncology at [address] [phone] Tyrese Fitzgerald MD [facility] [place] [address] documented as of this encounter Visit Diagnoses Not on filedocumented in this encounter Care Teams Emergency Medicine Specialist Relationship Specialty Start Date End Date Ilya Medina MD PCP - General 09/25/16 documented as of this encounter
--- OUTSIDE RECORDS SUMMARY | 2024-04-29 10:24 | XMS_ITS | Encounter Summary ---
Author Organization [facility] [place] [address] Care Team Providers Care C++ Quant Developer Name Role Phone Ilya Medina MD Primary Care Provider [phone] Encounter Details Date Type Department Care Team (Late st Contact Info) Description 09/21/2021 Telephone Hematology [place] [address] Cuca Boo Social History Tobacco [...] - 09/21/2021 2:20 PM EDT [facility] Log Roper spoke to Suman to inform him [employer] awarded him $250 [employer] card. Cuca Boo documented in this encounter Plan of Treatment Upcoming Encounters Date Type Department Care Team (Late st Contact Info) Description 04/29/2024 11:00 AM EST Office Visit Radiation Oncology at [address] [phone] Tyrese Fitzgerald MD [facility] [place] [address] documented as of this encounter Visit Diagnoses Not on filedocumented in this encounter Care Teams C++ Quant Developer Relationship Specialty Start Date End Date Ilya Medina MD PCP - General 09/25/16 documented as of this encounter
--- OUTSIDE RECORDS SUMMARY | 2024-04-29 10:24 | XMS_ITS | Encounter Summary ---
Author Organization [facility] Alyssia [place] [address] Care Team Providers Care Orthotics Prosthetics Technician Name Role Phone Ilya Medina MD Primary Care Provider [phone] Encounter Details Date Type Department Care Team (Late st Contact Info) Description 10/06/2021 Notes Only Radiation Oncology at [address] [phone] Olga Quintana RN Social History [...] office to report that the ED at [facility] found nothing after his visit yesterday. Wanted [...] EST Office Visit Radiation Oncology at [address] [phone] Tyrese Fitzgerald MD [facility] [place] [address] documented as of this encounter Visit Diagnoses Not on filedocumented in this encounter Care Teams Orthotics Prosthetics Technician Relationship Specialty Start Date End Date Ilya Medina MD PCP - General 09/25/16 documented as of this encounter
--- OUTSIDE RECORDS SUMMARY | 2024-04-29 10:24 | XMS_ITS | Encounter Summary ---
Author Organization [facility] [place] [address] Care Team Providers Care Pest Control Service Technician Name Role Phone Ilya Medina MD Primary Care Provider [phone] Reason for Visit * Reason Comments Follow-up Encounter Details Date Type Department Care Team (Late st Contact Info) Description 12/28/2021 8:45 AM EDT Office Visit Dermatology at [place] [address] [place] [address] Enoc Vzáquez MD [address] [facility], [place] [address] Eczema, unspecified type Social History Tobacco Use [...] therapy course. He did not respond to [id number]-[id number] emollient creams and Neosporin. He washes with the pump soap. He notices peeling potatoes seems to make this worse and irritate the skin. 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 He does use hand new grad rn on a regular basis whenever he goes [...] Try to minimize handwashing minimize use of new grad rn, wearing gloves when going into stores and then removing them in lieu of having to use new grad rn asmuch. 2. Use frequency bar soap such [...] EST Office Visit Radiation Oncology at [address] [phone] Tyrese Fitzgerald MD [facility] [place] [address] documented as of this encounter Visit Diagnoses Diagnosis Eczema, unspecified type documented in this encounter Care Teams Pest Control Service Technician Relationship Specialty Start Date End Date Ilya Medina MD PCP - General 09/25/16 documented as of this encounter
--- OUTSIDE RECORDS SUMMARY | 2024-04-29 10:24 | XMS_ITS | Encounter Summary ---
Author Organization [facility] Address [facility] [place] [address] Care Team Providers Care Egg Buyer Name Role Phone Ilya Medina MD Primary Care Provider [phone] Encounter Details Date Type Department Care Team (Late st Contact Info) Description 12/27/2021 1:00 PM EDT Office Visit Radiation Oncology at [address] [phone] Tyrese Fitzgerald MD [facility] [place] [address] Malignant neoplasm of bones of skull and [...] a 66 y.o. 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 Skin: Ptplex cream prn ?? Alimentation: equipment installer following ?? Weight stable, all by mouth at this time ?? 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
--- OUTSIDE RECORDS SUMMARY | 2024-04-29 10:24 | XMS_ITS | Encounter Summary ---
Author Organization [facility] Address [facility] [place] [address] Care Team Providers Care Bleach Boiler Puller Name Role Phone Ilya Medina MD Primary Care Provider [phone] Encounter Details Date Type Department Care Team (Late st Contact Info) Description 12/28/2021 Refill Dermatology at [address] [address] Lissy Olmos, PATIENT ATTENDANT Social History Tobacco Use Types Packs/Day Years [...] EST Office Visit Radiation Oncology at [address] [phone] Tyrese Fitzgerald MD [facility] [place] [address] documented as of this encounter Visit Diagnoses Not on filedocumented in this encounter Care Teams Bleach Boiler Puller Relationship Specialty Start Date End Date Ilya Medina MD PCP - General 09/25/16 documented as of this encounter
--- OUTSIDE RECORDS SUMMARY | 2024-04-29 10:24 | XMS_ITS | Encounter Summary ---
Author Organization [facility] [place] [address] Care Team Providers Care Political Worker Name Role Phone Ilya Medina MD Primary Care Provider [phone] Encounter Details Date Type Department Care Team (Late st Contact Info) Description 09/05/2021 Telephone [place] [address] Cuca Boo Social History Tobacco [...] - 09/05/2021 10:23 AM EDT Community Health Resident In Diagnostic Radiology spoke to Suman today. I need two bills for the JAF and CPSF davie, with the appropriate identifying information. He will send me the mortgage and Home equity bill. I am hoping this will help him cost shift to be able to purchase his hearing aid. I have sent him information about [employer] davie, to assist with the cost of [...] EST Office Visit Radiation Oncology at [address] [address] Tyrese Fitzgerald MD [facility] [place] [address] documented as of this encounter Visit Diagnoses Not on filedocumented in this encounter Care Teams Political Worker Relationship Specialty Start Date End Date Ilya Medina MD PCP - General 09/25/16 documented as of this encounter
--- OUTSIDE RECORDS SUMMARY | 2024-04-29 10:24 | XMS_ITS | Encounter Summary ---
Author Organization [facility] Address [facility] [place] [address] Care Team Providers Care Aerodynamics Teacher Name Role Phone Ilya Medina MD Primary Care Provider Encounter Details Date Type Department Care Team (Late st Contact Info) Description 10/02/2021 Orders Only [place] [address] Tyrese Fitzgerald MD [facility] [place] [address] Social History Tobacco Use Types Packs/Day Years [...] EST Office Visit Radiation Oncology at [address] [phone] Tyrese Fitzgerald MD [facility] [place] [address] documented as of this encounter Visit Diagnoses Not on filedocumented in this encounter Care Teams Aerodynamics Teacher Relationship Specialty Start Date End Date Ilya Medina MD PCP - General 09/25/16 documented as of this encounter
--- OUTSIDE RECORDS SUMMARY | 2024-04-29 10:25 | XMS_ITS | Encounter Summary ---
Author Organization [facility] [place] [address] Care Team Providers Care Life Enrichment Manager Name Role Phone Ilya Medina MD Primary Care Provider [phone] Encounter Details Date Type Department Care Team (Latest Contact Info) Description 07/13/2021 Multidisciplinary Ca [place] [phone] Jayne Darby MD [facility] [place] [address] Social History Tobacco Use Types Packs/Day Years [...] Head and Neck Tumor Board Note Site/Stage [id number] (Modified Duffield Staging) SCCa of the Left Middle Ear/Tympanic [...] for??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, [place], [place] DISCUSSION It is difficult to assign [...] staged at a pT3 based on Modified Duffield Staging System for Temporal Bone SCCa. We [...] EST Office Visit Radiation Oncology at [address] [phone] Tyrese Fitzgerald MD [facility] [place] [address] documented as of this encounter Visit Diagnoses Not on filedocumented in this encounter Care Teams Life Enrichment Manager Relationship Specialty Start Date End Date Ilya Medina MD PCP - General 09/25/16 documented as of this encounter
--- OUTSIDE RECORDS SUMMARY | 2024-04-29 10:25 | XMS_ITS | Encounter Summary ---
Author Organization [facility] Address [facility] [place] [address] Care Team Providers Care Judge Name Role Phone Ilya Medina MD Primary Care Provider Reason for Visit * Reason Comments Follow-up Still draining, no p ain. Encounter Details Date Type Department Care Team (Latest Contact Info) Description 08/04/2021 10:30 AM EDT Office Visit [place] [address] Apolinar Hernández MD [facility] [place] [address] Cancer of temporal bone; Mixed conductive and [...] Darby MD - 08/04/2021 10:30 AM EDT [facility] BRIEF FOLLOW UP NOTE [...] Neurotology Otolaryngology - Head & Neck Surgery [facility] documented in this encounter Plan of Treatment Upcoming Encounters Date Type Department Care Team (Late st Contact Info) Description 04/29/2024 11:00 AM EST Office Visit Radiation Oncology at [address] [phone] Tyrese Fitzgerald MD [facility] [place] [address] documented as of this encounter Visit Diagnoses Diagnosis 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
--- OUTSIDE RECORDS SUMMARY | 2024-04-29 10:25 | XMS_ITS | Encounter Summary ---
Author Organization [facility] Address [facility] [place] [address] Care Team Providers Care Rail Project Engineer Name Role Phone Ilya Medina MD Primary Care Provider [phone] Encounter Details Date Type Department Care Team (Late st Contact Info) Description 08/01/2021 12:30 PM EDT Office Visit Radiation Oncology at [address] [phone] Tyrese Fitzgerald MD [facility] [place] [address] Malignant neoplasm of bones of skull and [...] do to help manage the side effects. Retail Client Solutions Analyst - They take the doctors radiation prescription [...] special instructions. During this visit we may kylah Your skin with a tiny ???tattoos?? , [...] a well balanced diet is recommended. The surveyor geodetic and nurse will inform you of any special diet requirements. Avoid shaving the treatment area with a razor. If you must shave use an electric razor. Our Contact numbers Section of Radiation Oncology Our normal business hours are: Saturday - Saturday: 8:00 AM to 5:00 PM [facility]: [facility]: If you have questions about your radiation [...] in injury A Radiation Oncology doctor is business education teacher after our normal hours and on weekends. To call for urgent medical issues from radiation treatments that can not wait until normal businesshours: Call for either location and have the typecasting machine operator page the Radiation Oncologist business education teacher. 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
--- OUTSIDE RECORDS SUMMARY | 2024-04-29 10:25 | XMS_ITS | Encounter Summary ---
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, except mandible Procedures Simulation for Radiation Therapy Planning Tyrese Fitzgerald MD [facility] [place] [address] [facility] Rad Onc Office [address] [place] [phone] Referral ID Status Reason Start Date Expiration Date V isits Requested Visits Authorized [id number] Closed Consult, Test & Treat 07/28/2021 07/28/2022 31 31 Encounter Details Date Type Department Care Team (Late st Contact Info) Description 07/28/2021 Orders Only Radiation [place] [address] Tyrese Fitzgerald MD [facility] [address] Malignant neoplasm of bones of skull and [...] EST Office Visit Radiation Oncology at [address] [phone] Tyrese Fitzgerald MD [facility] RADIATION [place] [address] Scheduled Orders Name Type Priority Associated Diagnoses Orde r Schedule Simulation for Radiation Therapy Planning Procedures Routine 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
--- OUTSIDE RECORDS SUMMARY | 2024-04-29 10:25 | XMS_ITS | Encounter Summary ---
Author Organization [facility] Address [facility] [place] [address] Care Team Providers Care Pickling Operator Name Role Phone Ilya Medina MD Primary Care Provider [phone] Reason for Visit * Reason Onset Date Comments Medication Refill 07/10/2021 Encounter Details Date Type Department Care Team (Late st Contact Info) Description 07/10/2021 Ref[place] [address] Apolinar Hernández MD [facility] [place] [address] Social History Tobacco Use Types Packs/Day Years [...] EST Office Visit Radiation Oncology at [address] [phone] Tyrese Fitzgerald MD [facility] [place] [address] documented as of this encounter Visit Diagnoses Not on filedocumented in this encounter Care Teams Pickling Operator Relationship Specialty Start Date End Date Ilya Medina MD PCP - General 09/25/16 documented as of this encounter
--- OUTSIDE RECORDS SUMMARY | 2024-04-29 10:25 | XMS_ITS | Encounter Summary ---
Author Organization [facility] [place] [address] Care Team Providers Care Academic Dean Name Role Phone Ilya Medina MD Primary Care Provider [phone] Encounter Details Date Type Department Care Team (Late Contact Info) Description 07/13/2021 Telephone Radiation Oncology at [address] [phone] Michelle Mario Social History Tobacco [...] EST Office Visit Radiation Oncology at [address] [phone] Tyrese Fitzgerald MD [facility] [place] [address] documented as of this encounter Visit Diagnoses Not on filedocumented in this encounter Care Teams Academic Dean Relationship Specialty Start Date End Date Ilya Medina MD PCP - General 09/25/16 documented as of this encounter
--- OUTSIDE RECORDS SUMMARY | 2024-04-29 10:25 | XMS_ITS | Encounter Summary ---
Author Organization [facility] [place] [address] Care Team Providers Care Dedicated Driver Name Role Phone Ilya Medina MD Primary Care Provider [phone] Encounter Details Date Type Department Care Team (Late st Contact Info) Description 08/03/2021 Telephone Hematology [place] [address] Cuca Boo Social History Tobacco [...] place to sleep or slept in a [place] health care facility (including now)? No 07/19/2021 Sex and Gender Information Value Date Recorded Sex Assigned at Male 03/25/2021 10:08 AM EST Gender Identity Male 03/25/2021 10:08 AM EST Sexual Orientation Straight 03/25/2021 10 :08 AM EST documented as of this encounter Miscellaneous Notes * Telephone Encounter - Cuca Boo - 08/03/2021 2:09 PM EDT Community Health Judicial Assistant spoke to Suman. He would like to apply for two grants [employer] and [employer] plus grocery gift card. I have sent him the application. I have also requested a gas card from [employer]. $50. Cuca Boo documented in this encounter Plan of Treatment Upcoming Encounters Date Type Department Care Team (Late st Contact Info) Description 04/29/2024 11:00 AM EST Office Visit Radiation Oncology at [address] [phone] Tyrese Fitzgerald MD [facility] [place] [address] documented as of this encounter Visit Diagnoses Not on filedocumented in this encounter Care Teams Dedicated Driver Relationship Specialty Start Date End Date Ilya Medina MD PCP - General 09/25/16 documented as of this encounter
--- OUTSIDE RECORDS SUMMARY | 2024-04-29 10:25 | XMS_ITS | Encounter Summary ---
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 Encounter Details Date Type Department Care Team (Latest Contact Info) Description 07/12/2021 9:40 AM EST Office Visit [place] [address] Apolinar Hernández MD [facility] [place] [address] Cancer of temporal bone; Facial paralysis; Mixed [...] Hernández MD - 07/12/2021 9:[address] 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 Initiated on artifical tears and PM ocular [...] - Head & Neck Surgery 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
--- OUTSIDE RECORDS SUMMARY | 2024-04-29 10:25 | XMS_ITS | Encounter Summary ---
Author Organization [facility] [place]lyss[place] [address] Care Team Providers Care Security System Sales Consultant Name Role Phone Ilya Medina MD Primary Care Provider Encounter Details Date Type Department Care Team (Late st Contact Info) Description 08/01/2021 Notes Only Radiation Oncology at [address] [phone] Wilma Lovett, BOILER PLANT OPERATOR OFFICE OF CARE MANAGEMENT Social History [...] this encounter Progress Notes * Wilma Lovett, BOILER PLANT OPERATOR - 08/01/2021 1:58 PM EDT Reason for Referral: Brief assessment of social and emotional needs. Met with pt prior to his sim today to introduce myself and role of perinatal social worker to assess/address barriers to getting to and through treatments; address support needs and connect with community services and resources as needed. Family/Social Supports: Pt identified his Rvaen of 36 years as his primary support. They have 3 sons. One son lives with them and the others are local. Pt also identified siblings. Living Situation/Daily Activities/Transportation: Pt indicated he manages his daily chores and activities. He lives in the area. He is expecting 30 RT treatments. He does not expect any issues with transportation. 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 Will follow to assess/address psychosocial needs. EUGENIA Lewis, END PACKER, OSW-C [employer] [facility] documented in this encounter Plan of Treatment Upcoming Encounters Date Type Department Care Team (Late st Contact Info) Description 04/29/2024 11:00 AM EST Office Visit Radiation Oncology at [address] [phone] Tyrese Fitzgerald MD [facility] [place] [address] documented as of this encounter Visit Diagnoses Not on filedocumented in this encounter Care Teams Security System Sales Consultant Relationship Specialty Start Date End Date Ilya Medina MD PCP - General 09/25/16 documented as of this encounter
--- OUTSIDE RECORDS SUMMARY | 2024-04-29 10:25 | XMS_ITS | Encounter Summary ---
Author Organization [facility] Address [facility] [place] [address] Care Team Providers Care Airplane Technician Name Role Phone Ilya Medina MD Primary Care Provider [phone] Encounter Details Date Type Department Care Team (Late st Contact Info) Description 07/19/2021 3:40 PM EST Office Visit [place] [address] Jose D Tejada MD [facility] [place] [address] Cancer of temporal bone Social History Tobacco [...] Jayne Darby MD, PGY-5 07/19/21 5:28 PM [facility] Attending Note Patient was seen and [...] EST Office Visit Radiation Oncology at [address] [phone] Tyrese Fitzgerald MD [facility] [place] [address] documented as of this encounter Visit Diagnoses Diagnosis 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
--- OUTSIDE RECORDS SUMMARY | 2024-04-29 10:25 | XMS_ITS | Encounter Summary ---
Author Organization [facility] [place] [address] Care Team Providers Care Cell Support Operator Name Role Phone Ilya Medina MD Primary Care Provider [phone] Encounter Details Date Type Department Care Team (Late st Contact Info) Description 08/03/2021 Telephone Hematology [place] [address] Cuca Boo Social History Tobacco [...] - 08/03/2021 11:20 AM EDT Community Health Interactive Marketing Strategist lvm for Suman to return my call, I am checking in. Cuca Boo documented in this encounter Plan of Treatment Upcoming Encounters Date Type Department Care Team (Late st Contact Info) Description 04/29/2024 11:00 AM EST Office Visit Radiation Oncology at [address] [phone] Tyrese Fitzgerald MD [facility] [place] [address] documented as of this encounter Visit Diagnoses Not on filedocumented in this encounter Care Teams Cell Support Operator Relationship Specialty Start Date End Date Ilya Medina MD PCP - General 09/25/16 documented as of this encounter
--- OUTSIDE RECORDS SUMMARY | 2024-04-29 10:25 | XMS_ITS | Encounter Summary ---
[facility] [place] [address] Care Team Providers Care Dietary Manager Name Role Phone Ilya Medina MD Primary Care Provider [phone] Encounter Details Date Type Department Care Team (Late st Contact Info) Description 07/07/2021 11:00 AM EST Office Visit Audiology at [address] [phone] Marci Rodrigues AUD [facility] [place] [address] Mixed hearing loss, bilateral Social History Tobacco [...] findings, impressions and recommendations. Elena Neff Clinical Sales [place] [address] [phone] (fax) documented in this encounter Plan of Treatment Upcoming Encounters Date Type Department Care Team (Late st Contact Info) Description 04/29/2024 11:00 AM EST Office Visit Radiation Oncology at [address] [phone] Tyrese Fitzgerald MD [facility] [place] [address] documented as of this encounter Procedures Procedure [...] bilateral documented in this encounter Care Teams Dietary Manager Relationship Specialty Start Date End Date Ilya Medina MD PCP - General 09/25/16 documented as of this encounter
--- OUTSIDE RECORDS SUMMARY | 2024-04-29 10:25 | XMS_ITS | Encounter Summary ---
Author Organization [facility] [place] [address] Care Team Providers Care Rn Internal Medicine Name Role Phone Ilya Medina MD Primary Care Provider [phone] Encounter Details Date Type Department Care Team (Late st Contact Info) Description 07/03/2021 Telephone [place] [phone] Ruby Farley Social History Tobacco Use Types [...] - 07/03/2021 2:22 PM EST LVM on [phone] of scheduled appointment and requested call back [...] EST Office Visit Radiation Oncology at [address] [phone] Tyrese Fitzgerald MD [facility] [place] [address] documented as of this encounter Visit Diagnoses Not on filedocumented in this encounter Care Teams Rn Internal Medicine Relationship Specialty Start Date End Date Ilya Medina MD PCP - General 09/25/16 documented as of this encounter
--- OUTSIDE RECORDS SUMMARY | 2024-04-29 10:25 | XMS_ITS | Encounter Summary ---
Author Organization [facility] [place] [address] Care Team Providers Care Tunneller Name Role Phone Ilya Medina MD Primary Care Provider [phone] Reason for Referral * Consultation (Routine) - Closed Specialty Diagnoses / Procedures Referred By Contac t Referred To Contact Radiation Oncology Diagnoses Cancer of temporal bone Jayne Darby MD [facility] [place] [address] Stj Rad Onc Treatment [address] [place] [phone] Referral ID Status Reason Start Date Expiration Date V isits Requested Visits Authorized [id number] Closed Consult, Test & Treat 07/10/2021 07/10/2022 1 1 * Physical Therapy (Routine) - Closed Specialty Diagnoses / Procedures Referred By Contac t Referred To Contact Diagnoses Cancer of temporal bone Jose D Hoang MD [facility] [address] Referral ID Status Reason Start Date Expiration Date V isits Requested Visits Authorized [id number] Closed Evaluate and Treat 07/10/2021 01/06/2022 12 12 Encounter Details Date Type Department Care Team (Late st Contact Info) Description 07/07/2021 2:00 PM EST Office Visit [place] [address] Jayne Darby MD [facility] [place] [address] Cancer of temporal bone Social History Tobacco [...] Verified: ??07/05/2021 12:00 ??Pathologist Performed at: ??-[facility] [place], [place], [place] DISCUSSION It is difficult to assign [...] 07/13/2021. 3. Referral to Radiation Oncology to [facility] as detailed in Estefany Quiñones's note for preferred treatment location. Will determine need for adjuvant chemotherapy at [facility]. 4. Follow-up in [address] Hernández as requested by him. 5. Patient can follow-up PRN with me or ENT SWIM COACH/PA with Dr. Hoang from a H&N wound [...] EST Office Visit Radiation Oncology at [address] [phone] Tyrese Fitzgerald MD [facility] [place] [address] Scheduled Referrals Name Type Priority Associated Diagnoses [...] mandible documented in this encounter Care Teams Tunneller Relationship Specialty Start Date End Date Ilya Medina MD PCP - General 09/25/16 documented as of this encounter
--- OUTSIDE RECORDS SUMMARY | 2024-04-29 10:25 | XMS_ITS | Encounter Summary ---
Author Organization [facility] [place] [address] Care Team Providers Care Stacker Straightener Name Role Phone Ilya Median MD Primary Care Provider [phone] Reason for Visit * Auth/Cert Specialty Diagnoses [...] Expiration Date Visits Re quested Visits Authorized [id number] 1 1 Encounter Details Date Type Department Care Team (Late st Contact Info) Description 08/15/2021 2:22 PM EDT Anesthesia Event [place] [address] Savannah Davidson MD [facility] [place] [address] Andres Byers MD [facility] [place] [address] Anesthesia Record Procedure Summary Procedure Name Responsible [...] 1253; median cubital vein (antecubital fossa), left; hjmm-axn-teliap catheter system; Anatomical Landmarks; 20 gauge, 1 [...] dorsal arch vein (top of hand), right; hmhn-raj-duecll catheter system; 18 gauge; 08/15/21; 201308/15/21 1440 by Andres Byers MD 08/15/212013 by Enrico Hubbard RN Closed/Suction Drain 08/15/21; 1728; Lef t; Neck; 15 [place] (15 Fr round hubless Jarred drain) 08/15/21 [...] Procedure Summary Date: 08/15/21 Room / Location: [facility] OR [facility] MAIN OR Anesthesia Start: 1422 Anesthesia Stop: [...] Anesthesiologist: Nany Almendarez MD; Savannah Davidson MD APPAREL DESIGNER: Maritza Osorio CRNA Cuff Setter Overlock: Andres Byers MD Vitals Value Taken Time BP 157/90 08/15/211944 Temp 36.8 ??C (98.2 ??F) 08/15/211944 Pulse 75 08/15/211944 Resp 12 08/15/211944 SpO2 95 % 08/15/211958 Pain Level 7 08/15/211914 Vitals shown include unvalidated device data. Patient Location: PACU/[facility] Level of Consciousness: Conscious but Sleepy Pain [...] 0.54) performed by Apolinar Hernández MD at [facility] OR ??? PRG SOMATOSENSORY TEST, ANY/ALL PER. NERVES, TRUNK OR HEAD Left 06/28/2021 FACIAL NERVE MONITORING, SETUP PERIPHERAL (WRVU 0.54) performed by Apolinar Hernández MD at [facility] OR ??? PRO ADJ TISS TRANSFER/REARRANGEMENT ANY AREA 30.1-60 SQCM Left 06/28/2021 ADJACENT TISSUE TRANSFER OR REARRANGEMENT; 30.1 TO 60.0 SQ CM, HEAD/NECK (WRVU 12.65) performed by Jose D Hoang MD at [facility] OR ??? PRO COLONOSCOPY, BIOPSY 10/09/2012 COLONOSCOPY FLEXIBLE, WITH BX performed by Xiang Owen MD at [facility] ENDOSCOPY ??? PRO EXC PAROTD, TOTAL, DISSECT 5TH NERV Left 06/28/2021 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, TOTAL, WITH DISSECTION AND PRESERVATION OF FACIAL NERVE(WRVU 19.53) performed by Jose D Hoang MD at [facility] OR ??? PRO MASTOIDECTOMY, COMPLETE Left 06/28/2021 MASTOIDECTOMY, COMPLETE (WRVU 12.56) performed by Apolinar Hernández MD at [facility] OR ??? PRO MICROSURG TECHNIQUES, REQ OPER MICROSCOPE Left 03/31/2021 MICROSCOPE USE (WRVU 3.46) performed by Apolinar Hernández MD at [facility] OR ??? PRO MICROSURG TECHNIQUES, REQ OPER MICROSCOPE N/A 06/28/2021 MICROSCOPE USE (WRVU 3.46) performed by Apolinar Hernández MD at [facility] MAIN OR ? ? PRO MUSCLE MYOCUTANEOUS/FASCIOUCUTANEOUS FLAP HEAD&NECK W/NAMED VASC PEDCL Left 06/28/2021 FLAP, MYOCUTANEOUS OR FASCIOCUTANEOUS, HEAD & NECK W NAMED VASC PEDICLE performed by Jose D Hoang MD at [facility] MAIN OR ??? PRO REMOVAL NODES, NECK, CERV MOD RAD Left 06/28/2021 @CERVICAL LYMPHADENECTOMY (MODIFIED RADICAL NECK DISSECTION) (WRVU 23.95) performed by Jose D Hoang MD at [facility] MAIN OR ??? PRO RESECT TEMPORAL BONE, DISASTER RECOVERY MANAGER APPRCH Left 06/28/2021 @RESECTION TEMPORAL BONE, EXTERNAL APPROACH (WRVU 37.42) performed by Apolinar Hernández MD at [facility] PRO ??? PRO TYMPANOPLASTY Left 03/31/2021 TYMPANOPLASTY (WRVU 10.05) performed by Apolinar Hernández MD at [facility] MAIN OR ??? PRO UPPER GI ENDOSCOPY, BIOPSY 03/20/2011 UPPER GASTROINTESTINAL ENDOSCOPY,WITH BIOPSY SINGLE OR MULTIPLE performed by JORDAN RAMOS at [facility] ENDOSCOPY Social History Tobacco Use ??? [...] EST Office Visit Radiation Oncology at [address] [phone] Tyrese Fitzgerald MD [facility] [place] [address] documented as of this encounter Visit Diagnoses [...] mg documented in this encounter Care Teams Stacker Straightener Relationship Specialty Start Date End Date Ilya Medina MD PCP - General 09/25/16 documented as of this encounter
--- OUTSIDE RECORDS SUMMARY | 2024-04-29 10:25 | XMS_ITS | Encounter Summary ---
Author Organization [facility] Address [facility] [place] [address] Care Team Providers Care Jig And Fixture Maker Name Role Phone Ilya Medina MD Primary Care Provider [phone] Encounter Details Date Type Department Care Team [...] EST Office Visit Radiation Oncology at [address] [phone] Tyrese Fitzgerald MD [facility] [place] [address] documented as of this encounter Visit Diagnoses Not on filedocumented in this encounter Care Teams Jig And Fixture Maker Relationship Specialty Start Date End Date Ilya Medina MD PCP - General 09/25/16 documented as of this encounter
--- OUTSIDE RECORDS SUMMARY | 2024-04-29 10:25 | XMS_ITS | Encounter Summary ---
Author Organization [facility] Address [facility] [place] [address] Care Team Providers Care Corporate Sales Representative Name Role Phone Ilya Medina MD Primary Care Provider [phone] Reason for Visit * Auth/Cert Specialty Diagnoses [...] Expiration Date Visits Re quested Visits Authorized [id number] 1 1 Encounter Details Date Type Department Care Team (Late st Contact Info) Description 08/15/2021 2:25 PM EDT - 08/15/2021 6:05 PM EDT [place] [phone] Jose D Hoang MD [facility] [place] [address] FLAP, MYOCUTANEOUS OR FASCIOCUTANEOUS, HEAD & NECK [...] removed on 08/18/21 and replaced with a brooke dressing. 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 Electronically signed by: Lon Calvin [facility] ([phone]), at 08/01/2021 3:14 PM Discharge Info Discharge Condition: Stable Discharge to: [...] canal. Replace this once daily. Keep the Shannon dressing on to keep pressure to the [...] -You can reach the ENT clinic at [phone] for appointment questions. -The ENT triage nurse is available at [phone] -For urgent issues during evenings (5 PM - 7 AM) and weekends the ENT resident podiatric surgeon can be reached through the main hospital cnc wood lathe operator at [phone] Follow Up: You will need to follow [...] 1:00 PM Jayne Darby MD Otolaryngology at [facility] Arrive at: Termite Control Servicer Area [phone] 10/06/2021 8:50 AM [facility] MR 6 MRI at [facility] Arrive at: [facility]Z [facility] RADIOLOGY [phone] 10/06/2021 11:30 AM Apolinar Hernández MD Otolaryngology at [facility] Arrive at: Termite Control Servicer Area [phone] General Instructions None __ Your Medications New [...] Time Provider Department Center 08/25/2021 1:00 PM aJyne Darby MD [facility] 10/06/2021 8:50 AM [facility] MR 6 MH MRI [facility] Rad 10/06/2021 11:30 AM Apolinar Hernández MD [facility] Outpatient Services/Studies: No discharge procedures on file. Primary Care Doctor: Ilya Medina MD [phone] Signed: YUE Huddleston 08/18/2021 Routed to Estefany [...] canal. Replace this once daily. Keep the Shannon dressing on to keep pressure to the [...] -You can reach the ENT clinic at [phone] for appointment questions. -The ENT triage nurse is available at [phone] -For urgent issues during evenings (5 PM - 7 AM) and weekends the ENT resident podiatric surgeon can be reached through the main hospital cnc wood lathe operator at [phone] Follow Up: You will need to follow [...] 1:00 PM Jayne Darby MD Otolaryngology at [facility] Arrive at: Termite Control Servicer Area [phone] 10/06/2021 8:50 AM [facility] MR 6 MRI at [facility] Arrive at: [facility] RADIOLOGY [phone] 10/06/2021 11:30 AM Apolinar Hernández MD Otolaryngology at [facility] Arrive at: Termite Control Servicer Area [phone] documented in this encounter Medications at Time [...] RN - 08/18/2021 12:20 PM EDT Suman Warenr discharged to home by private car with [...] incisions Will plan to give patient a brooke ear dressing to wear today Neurologic: Pain [...] PGY2 08/18/21 9:48 AM ENT Team Pager: [phone] * Tiny Alfaro RN - 08/18/2021 7:37 [...] Intake/Output Summary (Last 24 hours) at 08/17/2021 0638 Last data filed at 08/17/2021 0400 Gross [...] PGY2 08/17/21 6:55 AM ENT Team Pager: [phone] * Caridad Sifuentes MD - 08/16/2021 10:46 [...] PGY1 08/16/21 10:46 AM ENT Team Pager: [phone] * Alyce Monroe MD - 08/15/2021 10:20 [...] Pressure dressings in place over L mastoid. Bixby visible on neck overlying L neck drain [...] Alyce Monroe MD PGY1 General Surgery - [facility] documented in this encounter H&P Notes [...] PGY1 08/15/21 1:02 PM ENT Team Pager: [phone] documented in this encounter Miscellaneous Notes * [...] MEDICARE SUPPLEMENT Prescription Coverage: Yes Preferred Pharmacy: [id number] - [place], [place] - [address] [facility] & [address] [address] [id number] - [place], [place] - [address] [facility] [address] [facility] [address] This plan was formulated with input from patient, and team. All are in agreement with plan. I have verbally reviewed Medicare Discharge Rights with patient. Patient verbalizes understanding of right to appeal this discharge if feeling not medically ready. Offered a copy of this letter. Barbara Baez RN BSN CM Neurology Power SuperintendentMiddle School Guidance Counselor of Care Management Pager [phone] * Plan of Care - Tiny Alfaro [...] AOx4, 09/14 strength x4 Per provider: Suman Wraner is a 66 y.o. male with PMH [...] COVID test: Lab Results Component Value Date [id number] Not Detected 08/15/2021 Present on Admission: ??? S/P debridement Hospitalizations Within the Past 30 Days: no previous admission in last 30 days Patient receiving hospital care under Inpatient status. Admission order reviewed. Primary Insurance on file: MEDICARE Secondary Insurance on file:@ Primary care provider on file: Ilya Medina MD [phone] Pharmacy: [id number] [place], [place] - [address] [place] [address] [address] [facility] & [address] [address] [facility] - [place], [place] - [address] [address] Advance Care Planning: Attempt Cardiopulmonary Resuscitation - Inpatient Received -Advanced Directive: Yes, on file Who is your DPOA-HC?: Spouse Current Functional Ability: Independent Functional Status Prior to Admission: Independent Home Environment: Others in the home: spouse. Current Living Arrangements: home/apartment/condo. Accessibility Concerns:two story home, no barriers. Current DME: none [address] [facility] [address] Social & Family Supports: All names listed [...] home via when medically ready. Registered Nurse Power Superintendent / Steamship Agent will continue to follow patient???s progress and remain available if situation changes for coordination of care, psychosocial support and/or discharge planning. Pt is open to [facility] again if drain needs to staying in at discharge, otherwise is nothomebound. Office of Care Management Barbara Baez RN BSN CM Neurology Power SuperintendentMiddle School Guidance Counselor of Care Management Pager [phone] * Plan of Care - Tiny Alfaro [...] Hoang MD - 08/15/2021 3:21 PM EDT [facility] Operative Note Patient Name: Suman Warner : [id number] MR#: [id number] Case Date: 08/15/2021 Surgeon: Jose D Hoang MD Divakar, Prashanthi, MD Bell, Rebecca, MD Higgins, YUE Zimmerman Diagnosis: Flap Necrosis Procedure: 1. Debridement of Left Submental Flap 2. Left Temporalis Muscle Pedicled Flap (6 cm x 6 cm) Anesthesia: General via Oral ETT Estimated Blood Loss: 75 cc HPI/Surgical Indications: Suman Warner is a 66 y.o. 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??in [...] EST Office Visit Radiation Oncology at [address] [address] Tyrese Fitzgerald MD [facility] [place] [address] documented as of this encounter Procedures Procedure [...] Debridement Muscle And Fascia 20 Sq Cm/< (21035) Yes 08/15/2021 2:23 PM EDT Encounter for post surgical wound check Cancer of temporal bone Muscle Myocutaneous/Fasciouc utaneous Flap Head&Neck W/Named Vasc Pedcl (97266) Yes 08/15/2021 2:23 PM EDT Encounter for post surgical wound check Cancer of temporal bone RAPID COVID-19 PCR ([facility]) Routine 08/15/2021 1:11 PM EDT FLAP, MYOCUTANEOUS [...] Absolute 6.86(H) 1.70 - 6.10 x10(3)/mc L [facility] Lymph % 8.1 % [facility] Lymphocytes Abs 0.6(L) 0.9 - 3.2 x10(3)/mc L [facility] Monocyte % 4.2 % [facility] Monocyte Abs 0.3 0.3 - 0.9 x10(3)/[facility] Eos % 0.0 % [facility] Eosinophils Abs 0.0 0.0 - 0.4 x10(3)/[facility] Basophil % 0.1 % [facility] Baso Absolute 0.0 0.0 - 0.1 x10(3)/[facility] Immature Gran % 0.30 % [facility] Comment: Immature granulocytes(IG's)percentage and absolute count will include metamyelocytes, myelocytes, and promyelocytes. Blood smears from CBCs yielding IG's will be scanned manually for concordance. If this scan disagrees with the automated IG or if promyelocytes are noted, a manual differential will be performed. Immature Gran Absolute 0.02 0.00 - 0.04 x10(3)/[facility] Blood 08/16/2021 3:38 AM EDT 08/16/2021 3:53 AM EDT Narrative Resulting Agency Comment Spec In Lab Elsie TURNER HEMATOLOGY ORDER CHARI [facility] [place] [address] * Hemogram (08/16/2021 3:38 AM EDT) White Blood Cell 7.9 4.0 - 9.5 x10(3)/[facility] Red Blood Cell 4.82 4.58 - 5.54 x10(6)/[facility] Hemoglobin 15.1 13.7 - 16.5 g/dL [facility] Hematocrit 42.8 40.5 - 48.5 % [facility] Mean Cell Volume 88.8 82.9 - 93.1 fL [facility] Mean Cell Hemoglobin 31.3 27.5 - 32.1 pg [facility] Mean Cell Hemoglobin Concentration 35.3 32.0 - 35.7 g/dL [facility] Platelet 208 145 - 357 x10(3)/[facility] RDW Standard Deviation 40.2 36.0 - 45.0 fL [facility] RDW coefficient of variation 12.3 11.4 - 13.8 % [facility] Mean Platelet Volume 9.9 7.6 - 12.9 fL [facility] NRBC% auto 0.0 % [facility] NRBC Absolute 0.000 0.000 - 0.000 x10(3)/[facility] Blood 08/16/2021 3:38 AM EDT 08/16/2021 3:53 AM EDT Narrative Resulting Agency Comment Spec In Lab Elsie TURNER HEMATOLOGY ORDER CHARI Performing Organization Address [facility]/ZIP Co de Phone Number [facility] [place] [address] * Phosphorus (08/16/2021 3:38 AM EDT) Phosphorus 2.9 2.5 - 4.5 mg/dL [facility] Blood 08/16/2021 3:38 AM EDT 08/16/2021 3:53 AM EDT Narrative Resulting Agency Comment Spec In Lab Jose D Hoang MD CHEMISTRY ORDERABL ES Performing Organization Address City/[facility]/ZIP Co de Phone Number [facility] [place] [address] * (ABNORMAL) Magnesium (08/16/2021 3:38 AM EDT) Magnesium 0.62(L) 0.69 - 1.07 mmol/L [facility] Blood 08/16/2021 3:38 AM EDT 08/16/2021 3:53 AM EDT Narrative Resulting Agency Comment Spec In Lab Jose D oHang MD CHEMISTRY ORDERABL ES [facility] [place] [address] * (ABNORMAL) Basic Metabolic Panel (non-fasting) (08/16/2021 3:38 AM EDT) Glucose 199 65 - 199 mg/dL [facility] Comment:Diabetes: >=200 mg/d L plus symptoms Blood Urea Nitrogen 16 10 - 20 mg/dL [facility] Creatinine 0.88 0.80 - 1.50 mg/dL [facility] Sodium 135 135 - 145 mmol/L [facility] Potassium 4.3 3.5 - 5.0 mmol/L [facility] Comment: Please note: ??Patients with WBC >100,000 may have falsely elevated Potassium levels. ??For accurate Potassium quantification in these patients send serum separator tube (gold top) for subsequent determinations. ??Contact the Clinical Chemistry Laboratory if there are any questions. Chloride 102 98 - 107 mmol/L [facility] Carbon Dioxide 20(L) 22 - 31 mmol/L [facility] Anion Gap 13 5 - 15 mmol/L [facility] Calcium 8.8 8.5 - 10.5 mg/dL [facility] Est Glomerular Filtration Rate 90 >=60 mL/min/1. 73 m?? [facility] Comment: This patient? [...] Jose D Hoang MD CHEMISTRY ORDERABL ES [facility] [place] [address] * COVID-19 PCR (08/15/2021 1:11 PM EDT) SARS-CoV-2 RNA (Rapid) Not Detected Not Detected [facility] Comment: This result should be interpreted [...] using the Simplexa COVID-19 Direct Assay by [employer] as authorized by the FDA issued Emergency [...] Department of Pathology and Laboratory Medicine at [facility], certified under the Clinical Laboratory Improvement Amendments [...] fact sheets at the following FDA website: https://www.fda.gov/medical-devices/wntmmbspuek-vjqdrwa-2979-bulkt-82-tvkvjgdvi- use-a ksnknysnaptkj-ckibevt-uctnqwr/oygvj-pzqgztxwlxa-mzxj SARS-CoV-2 Source [employer] Swab [facility] Nasopharyngeal Swab 08/16/19 1:11 PM EDT 08/15/2021 5:09 PM EDT Comment:Symptoms->Surveillan ce Narrative Resulting Agency Comment Spec In Lab Jose D Hoang MD MICROBIOLOGY - GEN ERAL ORDERABLES Performing Organization Address City/State/[facility] Co de Phone Number [facility] [place] [address] documented in this encounter Visit Diagnoses Diagnosis [...] Routine documented in this encounter Care Teams Corporate Sales Representative Relationship Specialty Start Date End Date Ilya Medina MD PCP - General 09/25/16 documented as of this encounter
--- OUTSIDE RECORDS SUMMARY | 2024-04-29 10:25 | XMS_ITS | Encounter Summary ---
Author Organization [facility] [place] [address] Care Team Providers Care Baker Paint Name Role Phone Ilya Medina MD Primary Care Provider [phone] Encounter Details Date Type Department Care Team (Late st Contact Info) Description 07/11/2021 Telephone [place] [phone] Nga Winter RN Social History Tobacco Use [...] EST Office Visit Radiation Oncology at [address] [address] yTrese Fitzgerald MD [facility] [place] [address] documented as of this encounter Visit Diagnoses Not on filedocumented in this encounter Care Teams Baker Paint Relationship Specialty Start Date End Date Ilya Medina MD PCP - General 09/25/16 documented as of this encounter
--- OUTSIDE RECORDS SUMMARY | 2024-04-29 10:25 | XMS_ITS | Encounter Summary ---
Author Organization [facility] [place] [address] Care Team Providers Care Account Services Associate Name Role Phone Ilya Medina MD Primary Care Provider [phone] Encounter Details Date Type Department Care Team (Late st Contact Info) Description 08/11/2021 Telephone Hematology [place] [address] Cuca Boo Social History Tobacco [...] - 08/11/2021 9:01 AM EDT Community Health Materials Engineer received call from Suman. He has received the gas card from [facility]. He was asking about the [employer] application. I told him it is in [...] EST Office Visit Radiation Oncology at [address] [phone] Tyrese Fitzgerald MD [facility] [place] [address] documented as of this encounter Visit Diagnoses Not on filedocumented in this encounter Care Teams Account Services Associate Relationship Specialty Start Date End Date Ilya Medina MD PCP - General 09/25/16 documented as of this encounter
--- OUTSIDE RECORDS SUMMARY | 2024-04-29 10:25 | XMS_ITS | Encounter Summary ---
Author Organization [facility] [place] [address] Care Team Providers Care One Piece Expansion Maker Hand Name Role Phone Ilya Medina MD Primary Care Provider [phone] Encounter Details Date Type Department Care Team (Late st Contact Info) Description 07/10/2021 Telephone [place] [phone] Leatha Price RN Social History Tobacco Use [...] EST Office Visit Radiation Oncology at [address] [address] Tyrese Fitzgerald MD [facility] [address] [place] [address] documented as of this encounter Visit Diagnoses Not on filedocumented in this encounter Care Teams One Piece Expansion Maker Hand Relationship Specialty Start Date End Date Ilya Medina MD PCP - General 09/25/16 documented as of this encounter
--- OUTSIDE RECORDS SUMMARY | 2024-04-29 10:25 | XMS_ITS | Encounter Summary ---
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, except mandible Procedures Simulation for Radiation Therapy Planning Tyrese Fitzgerald MD [facility] [place] [address] St Rad Onc Office [address] [place] [phone] Referral ID Status Reason Start Date Expiration Date V isits Requested Visits Authorized [id number] Closed Consult, Test & Treat 07/28/2021 07/28/2022 31 31 Encounter Details Date Type Department Care Team (Late st Contact Info) Description 08/01/2021 1:00 PM EDT Ancillary Appointment Radiation Oncology at [address] [phone] Tyrese Fitzgerald MD [facility] [place] [address] Social History Tobacco Use Types Packs/Day Years [...] EST Office Visit Radiation Oncology at [address] [address] Tyrese Fitzgerald MD [facility] [place] [address] Scheduled Orders Name Type Priority Associated Diagnoses Orde r Schedule Simulation for Radiation Therapy Planning Procedures Routine 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
--- OUTSIDE RECORDS SUMMARY | 2024-04-29 10:25 | XMS_ITS | Encounter Summary ---
Author Organization [facility] [place] [address] Care Team Providers Care Procurement Analyst Name Role Phone Ilya Medina MD Primary Care Provider [phone] Encounter Details Date Type Department Care Team (Late st Contact Info) Description 07/14/2021 Telephone [place] [phone] Nga Winter RN Social History Tobacco Use [...] EST Office Visit Radiation Oncology at [address] [phone] Tyrese Fitzgerald MD [facility] [place] [address] documented as of this encounter Visit Diagnoses Not on filedocumented in this encounter Care Teams Procurement Analyst Relationship Specialty Start Date End Date Ilya Medina MD PCP - General 09/25/16 documented as of this encounter
--- OUTSIDE RECORDS SUMMARY | 2024-04-29 10:25 | XMS_ITS | Encounter Summary ---
Author Organization [facility] Address [facility] A[facility]ia [facility] [place] [address] Care Team Providers Care Visual Effects Editor Name Role Phone Ilya Medina MD Primary Care Provider [phone] Reason for Visit * Reason Comments Follow-up Still having drainag e but not malodorous. Denies Otalgia. Encounter Details Date Type Department Care Team (Latest Contact Info) Description 07/27/2021 4:00 PM EDT Office [place] [address] Apolinar Hernández MD [facility] [place] [address] Cancer of temporal bone; Status post neck [...] Hernández MD - 07/27/2021 4:00 PM EDT [facility] Otolaryngology - Head and Neck Surgery Apolinar Hernández MD 07/27/21 4:35 PM [place] [address] Office Patient Name: Suman Warner Date of [...] Neurotology Otolaryngology - Head & Neck Surgery [facility] documented in this encounter Plan of Treatment Upcoming Encounters Date Type Department Care Team (Late st Contact Info) Description 04/29/2024 11:00 AM EST Office Visit Radiation Oncology at [address] [phone] Tyrese Fitzgerald MD [facility] [place] [address] documented as of this encounter Visit Diagnoses Diagnosis 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
--- OUTSIDE RECORDS SUMMARY | 2024-04-29 10:25 | XMS_ITS | Encounter Summary ---
Author Organization [facility] Address [facility] [place] [address] Care Team Providers Care Manager Furniture Name Role Phone Ilya Medina MD Primary Care Provider [phone] Reason for Visit * Physical Therapy (Routine) - Closed Specialty Diagnoses / Procedures Referred By Alonso jesus Referred To Contact Diagnoses Cancer of temporal bone Jose D Hoang MD [facility] [place] [address] Referral ID Status Reason Start Date Expiration Date V isits Requested Visits Authorized [id number] Closed Evaluate and Treat 07/10/2021 01/06/2022 12 12 Encounter Details Date Type Department Care Team (Late st Contact Info) Description 07/19/2021 10:00 AM EST Office Visit Radiation Oncology at [address] [phone] Tyrese Fitzgerald MD [facility] [place] [address] Malignant neoplasm of bones of [...] in the section of Radiation Oncology at [facility] ONCOLOGIC HISTORY Overview: 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 We [...] 0.54) performed by Apolinar Hernández MD at [facility] MAIN OR ??? PRG SOMATOSENSORY TEST, ANY/ALL PER. NERVES, TRUNK OR HEAD Left 06/28/2021 FACIAL NERVE MONITORING, SETUP PERIPHERAL (WRVU 0.54) performed by Apolinar Hernández MD at [facility] OR ??? PRO ADJ TISS TRANSFER/REARRANGEMENT ANY AREA 30.1-60 SQCM Left 06/28/2021 ADJACENT TISSUE TRANSFER OR REARRANGEMENT; 30.1 TO 60.0 SQ CM, HEAD/NECK (WRVU 12.65) performed by Jose D Hoang MD at [facility] OR ??? PRO COLONOSCOPY, BIOPSY 10/09/2012 COLONOSCOPY FLEXIBLE, WITH BX performed by Xiang Owen MD at [facility] ENDOSCOPY ??? PRO EXC PAROTD, TOTAL, DISSECT 5TH NERV Left 06/28/2021 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, TOTAL, WITH DISSECTION AND PRESERVATION OF FACIAL NERVE(WRVU 19.53) performed by Jose D Hoang MD at [facility] OR ??? PRO MASTOIDECTOMY, COMPLETE Left 06/28/2021 MASTOIDECTOMY, COMPLETE (WRVU 12.56) performed by Apolinar Hernández MD at [facility] OR ??? PRO MICROSURG TECHNIQUES, REQ OPER MICROSCOPE Left 03/31/2021 MICROSCOPE USE (WRVU 3.46) performed by Apolinar Hernández MD at [facility] OR ??? PRO MICROSURG TECHNIQUES, REQ OPER MICROSCOPE N/A 06/28/2021 MICROSCOPE USE (WRVU 3.46) performed by Apolinar Hernández MD at [facility] OR ? ? PRO MUSCLE MYOCUTANEOUS/FASCIOUCUTANEOUS FLAP HEAD&NECK W/NAMED VASC PEDCL Left 06/28/2021 FLAP, MYOCUTANEOUS OR FASCIOCUTANEOUS, HEAD & NECK W NAMED VASC PEDICLE performed by Jose D Hoang MD at [facility] OR ??? PRO REMOVAL NODES, NECK, CERV MOD RAD Left 06/28/2021 @CERVICAL LYMPHADENECTOMY (MODIFIED RADICAL NECK DISSECTION) (WRVU 23.95) performed by Jose D Hoang MD at [facility] MAIN OR ??? PRO RESECT TEMPORAL BONE, ELECTRONIC VIDEO GAMES SERVICER APPRCH Left 06/28/2021 @RESECTION TEMPORAL BONE, EXTERNAL APPROACH (WRVU 37.42) performed by Apolinar Hernández MD at [facility] PRO ??? PRO TYMPANOPLASTY Left 03/31/2021 TYMPANOPLASTY (WRVU 10.05) performed by Apolinar Hernández MD at [facility] MAIN OR ??? PRO UPPER GI ENDOSCOPY, BIOPSY 03/20/2011 UPPER GASTROINTESTINAL ENDOSCOPY,WITH BIOPSY SINGLE OR MULTIPLE performed by JORDAN RAMOS at [facility] ENDOSCOPY Social History Socioeconomic History ??? [...] risk features including pT3 disease using modified Manson staging for temporal squamous cell carcinomas. We discussed the risks and benefits of adjuvant radiotherapy in detail, noting the limited evidence in this malignancy. The patient's case has been reviewed at the [facility] tumor board and it was felt adjuvantradiotherapy would be the best option for potential cure of his locally advanced malignancy. We discussed the rationale, logistics (including simulation, planning, and treatment) and efficacy of adjuvant radiotherapy. We discussed the risks of therapy, including but not limited to short termsequelae (fatigue, skin erythema, mucositis, alopecia, ageusia, xerostomia, weight loss) and bead picker sequelae (tissue fibrosis, lymphedema, xerostomia, osteoradionecrosis, increased [...] Supportive Care Enteral Nutrition Not recommended Referrals Weatherization Coordinator OTHER ISSUES None 45 minutes of this [...] treatment: None identified by patient/nurse today Referrals/Interventions: BAR CAPTAIN per routine RADIATION SPECIFIC TEACHING: [facility] Radiation Therapy and You Site specific teaching : Head and Neck teaching to be done on day of simulation by nursing. Other: PLAN: Per Dr. 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
--- OUTSIDE RECORDS SUMMARY | 2024-04-29 10:25 | XMS_ITS | Encounter Summary ---
Author Organization [facility] [place] [address] Care Team Providers Care Agricultural Economist Name Role Phone Ilya Medina MD Primary Care Provider Reason for Referral * Physical Therapy (Routine) - Closed Specialty Diagnoses / Procedures Referred By Alonso jesus Referred To Contact Physical Therapy Diagnoses Status post neck dissection Cancer of temporal bone Apolinar Hernández MD [facility] [place] [address] Referral ID Status Reason Start Date Expiration Date V isits Requested Visits Authorized [id number] Closed Evaluate and Treat 07/19/2021 01/15/2022 12 12 Encounter Details Date Type Department Care Team (Late st Contact Info) Description 07/18/2021 Orders [place] [address] Nga Winter, RN Status post neck dissection; Cancer of temporal bone Social History Tobacco Use Types Packs/Day Years Used Date Smoking Tobacco: Never Smokeless Tobacco: Never Alcohol Use Standard Drinks/Week Comments No 0 (1 standard drink = 0.6 oz pur e alcohol) Overall Financial Resource Strain (CARDIA) Gertrudis cantu Date Recorded How hard is it for [...] EST Office Visit Radiation Oncology at [address] [address] Tyrese Fitzgerald MD [facility] [place] [address] Scheduled Referrals Name Type Priority Associated Diagnoses Orde r Schedule Referral to Physical Therapy Outpatient Referral Routine Status post neck dissection Cancer of temporal bone Ordered: 07/19/2021 documented as of this encounter Visit Diagnoses Diagnosis Status post neck dissection 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
--- OUTSIDE RECORDS SUMMARY | 2024-04-29 10:25 | XMS_ITS | Encounter Summary ---
Author Organization [facility] [place] [address] Care Team Providers Care Dermatology Physician Assistant Name Role Phone Ilya Medina MD [...] EST Office Visit Radiation Oncology at [address] [address] Tyrese Fitzgerald MD [facility] [place] [address] documented as of this encounter Visit Diagnoses Not on filedocumented in this encounter Care Teams Dermatology Physician Assistant Relationship Specialty Start Date End Date Ilya Meidna MD PCP - General 09/25/16 documented as of this encounter
--- OUTSIDE RECORDS SUMMARY | 2024-04-29 10:25 | XMS_ITS | Encounter Summary ---
Author Organization [facility] Address [facility] [place] [address] Care Team Providers Care Engineering Supplies Sales Name Role Phone Ilya Medina MD Primary Care Provider Encounter Details Date Type Department Care Team (Latest Contact Info) Description 07/19/2021 3:40 PM EST Office [place] [address] Apolinar Hernández MD [facility] [place] [place] [address] Cancer of temporal bone; Status post neck [...] See signed note this date by Drs. aDrby and Viktor. No additional visit charge. 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
--- OUTSIDE RECORDS SUMMARY | 2024-04-29 10:25 | XMS_ITS | Encounter Summary ---
Author Organization [facility] Address [facility] [place] [address] Care Team Providers Care Bank Analyst Name Role Phone Ilya Medina MD Primary Care Provider [phone] Reason for Visit * Reason Comments Follow-up Still having drainag e. No pain. Encounter Details Date Type Department Care Team (Late st Contact Info) Description 07/27/2021 4:00 PM EDT Office [place] [address] Jose D Tejada MD [facility] [place] [place] [address] Cancer of temporal bone; Postoperative examination Social [...] Tejada MD - 07/27/2021 4:00 PM EDT [facility] OTOLARYNGOLOGY BRIEF FOLLOW UP NOTE Suman Warenr is a 66 y.o. 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
--- OUTSIDE RECORDS SUMMARY | 2024-04-29 10:25 | XMS_ITS | Encounter Summary ---
Author Organization [facility] Address [facility] [place] [address] Care Team Providers Care Continuity Person Name Role Phone Ilya Medina MD Primary Care Provider [phone] Encounter Details Date Type Department Care Team (Late st Contact Info) Description 07/31/2021 Orders [place] [address] Tyrese Fitzgerald MD [facility] [place] [address] Malignant neoplasm of bones of skull and [...] EST Office Visit Radiation Oncology at [address] [address] Tyrese Fitzgerald MD [facility] [place] [address] documented as of this encounter Visit Diagnoses Diagnosis 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
--- OUTSIDE RECORDS SUMMARY | 2024-04-29 10:25 | XMS_ITS | Encounter Summary ---
Author Organization [facility] Address [facility] [place] [address] Care Team Providers Care Lightning Protection Installer Name Role Phone Ilya Medina MD Primary Care Provider [phone] Encounter Details Date Type Department Care Team (Late st Contact Info) Description 08/10/2021 3:40 PM EDT Office [place] [address] Jose D Tejada MD [facility] [place] [address] Encounter for post surgical wound check; Cancer [...] Warner is a 66 y.o. 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??in [...] Tejada MD - 08/10/2021 3:40 PM EDT [facility] Attending Note Patient was seen and [...] EST Office Visit Radiation Oncology at [address] [address] Tyrese Fitzgerald MD [facility] [place] [address] documented as of this encounter Procedures Procedure [...] Prevotella melaninogenica Rare Bacteroides fragilis Group (A) [facility] Organism Prevotella melaninogenica(A) [facility] Organism Bacteroides fragilis Group(A) [facility] Fluid NECK STRUCTURE / Unknown 08/10/2021 5:46 PM EDT 08/10/2021 5:46 PM EDT Narrative Resulting Agency Comment Spec In Lab Jose D Tejada MD MICROBIOLOGY - GEN ERAL ORDERABLES Performing Organization Address [facility] Co de Phone Number [facility] [place] [address] * (ABNORMAL) Abscess/Wound Aspirate Culture (08/10/2021 5:46 PM EDT) Abscess/Wound Aspirate Culture Rare Staphylococcus aureus Many mixed bacterial morphotypes suggestive of normal cutaneous smith (A) [facility] Gram Stain Many Neutrophils seen Many Gram Positive Cocci in pairs Many Gram Positive Cocci in clusters (A) [facility] Organism Staphylococcus aureus(A) [facility] Fluid NECK STRUCTURE / Unknown 08/10/2021 5:46 PM EDT 08/10/2021 5:46 PM EDT Narrative Resulting Agency Comment Spec In Lab Organism Antibiotic Method Susceptibility Staphylococcus aureus Clindamycin VITEK 2 METHOD Sensitive Staphylococcus aureus Erythromycin VITEK 2 METHOD Sensitive Staphylococcus aureus Gentamicin VITEK 2 METHOD Sensitive Comment:Gentamicin i s not appropriate for Clay-therapy. 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
--- OUTSIDE RECORDS SUMMARY | 2024-04-29 10:25 | XMS_ITS | Encounter Summary ---
Author Organization [facility] [place] [address] Care Team Providers Care Processor Helper Name Role Phone Ilya Medina MD Primary Care Provider [phone] Encounter Details Date Type Department Care Team (Late st Contact Info) Description 07/17/2021 Telephone [place] [address] Nga Winter RN Social History Tobacco Use [...] Patient would like to attend PT at [facility] in [place], [place]. Phone #: [phone]. Referral faxed to them at: [phone]. documented in this encounter Plan of Treatment Upcoming Encounters Date Type Department Care Team (Late st Contact Info) Description 04/29/2024 11:00 AM EST Office Visit Radiation Oncology at [address] [address] Tyrese Fitzgerald MD [facility] [place] [address] documented as of this encounter Visit Diagnoses Not on filedocumented in this encounter Care Teams Processor Helper Relationship Specialty Start Date End Date Ilya Medina MD PCP - General 09/25/16 documented as of this encounter
--- OUTSIDE RECORDS SUMMARY | 2024-04-29 10:25 | XMS_ITS | Encounter Summary ---
Author Organization [facility] [place] [address] Care Team Providers Care Child Psychiatrist Name Role Phone Ilya Medina MD Primary Care Provider [phone] Encounter Details Date Type Department Care Team (Late st Contact Info) Description 07/31/2021 Telephone Radiation Oncology at [address] [address] Michelle aMrio Social History Tobacco Use Types Packs/Day Years [...] Called with SIM time and Labs at [facility] for tomorrow 08/01/21. Suman will got to [facility] at 11 to have labs, then be here at [facility] for 12. He was fine with this plan. documented in this encounter Plan of Treatment Upcoming Encounters Date Type Department Care Team (Late st Contact Info) Description 04/29/2024 11:00 AM EST Office Visit Radiation Oncology at [address] [phone] Tyrese Fitzgerald MD [facility] DR [place] [address] documented as of this encounter Visit Diagnoses Not on filedocumented in this encounter Care Teams Child Psychiatrist Relationship Specialty Start Date End Date Ilya Medina MD PCP - General 09/25/16 documented as of this encounter
--- OUTSIDE RECORDS SUMMARY | 2024-04-29 10:25 | XMS_ITS | Encounter Summary ---
Author Organization [facility] Address [facility] [place] [address] Care Team Providers Care Zumba Instructor Name Role Phone Ilya Medina MD Primary Care Provider [phone] Reason for Visit * Reason Comments IV Access PIV placement for SI M Encounter Details Date Type Department Care Team (Late st Contact Info) Description 08/01/2021 12:00 PM EDT Infusion Hematology Oncology at [address] [address] Malignant neoplasm of bones of [...] EST Office Visit Radiation Oncology at [address] [address] Tyrese Fitzgerald MD [facility] [place] [address] documented as of this encounter Visit Diagnoses Diagnosis 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
--- OUTSIDE RECORDS SUMMARY | 2024-04-29 10:25 | XMS_ITS | Encounter Summary ---
Author Organization [facility] [place] [address] Care Team Providers Care Digital Media Sales Consultant Name Role Phone Ilya Medina MD Primary Care Provider [phone] Encounter Details Date Type Department Care Team (Late st Contact Info) Description 08/03/2021 Telephone Hematology [place] [address] Cuca Boo Social History Tobacco [...] EST Office Visit Radiation Oncology at [address] [address] Tyrese Fitzgerald MD [facility] [place] [address] documented as of this encounter Visit Diagnoses Not on filedocumented in this encounter Care Teams Digital Media Sales Consultant Relationship Specialty Start Date End Date Ilya Medina MD PCP - General 09/25/16 documented as of this encounter
--- OUTSIDE RECORDS SUMMARY | 2024-04-29 10:26 | XMS_ITS | Encounter Summary ---
Author Organization [facility] Address [facility] [place] [address] Care Team Providers Care Ammunition Assembly Ii Laborer Name Role Phone Ilya Medina MD Primary Care Provider [phone] Reason for Visit * Auth/Cert Specialty Diagnoses [...] Expiration Date Visits Re quested Visits Authorized [id number] 1 1 Encounter Details Date Type Department Care Team (Late st Contact Info) Description 03/31/2021 8:30 AM EST - 03/31/2021 12:15 PM EST Surgery [place] [address] Apolinar Hernández MD [facility] [place] [address] TYMPANOPLASTY (WRVU 10.05) Social History Tobacco Use [...] -You can reach the ENT clinic at [phone] for appointment questions. -The ENT triage nurse is available at [phone] -For urgent issues during evenings and weekends the ENT resident application architect can be reached through [facility] twine reeling machine operator at [phone] Follow Up: You will need to follow up with ENT in 7-10 days. This appointment has been requested. You will be notified once it is scheduled, if you do not already see it below. If you do not hear from us in a timely manner, please call [phone] to receive your date and time. Currently Scheduled Appointments: Future Appointments and Orders Future Appointments and Orders Future Appointments Provider Department Dept Phone 04/10/2021 10:40 AM Nash Alberts PA Otolaryngology at [facility] Arrive at: Console Operator Area [phone] 05/15/2021 3:20 PM Apolinar Hernández MD Otolaryngology at [facility] Arrive at: Console Operator Area [phone] 06/19/2021 12:45 PM Pina Snowden, TERRENCE; AUDIOLOGY, [facility] Audiology at [facility] Arrive at: Console Operator Area [phone] 06/19/2021 1:40 PM Apolinar Hernández MD Otolaryngology at [facility] Arrive at: Console Operator Area [phone] documented in this encounter Medications at Time [...] planned surgical procedure, revision tympanomastoidectomy with biopsies. pAolinar Hernández MD Otology and Neurotology Otolaryngology - Head & Neck Surgery Pgr: [phone] documented in this encounter Miscellaneous Notes * Op Note - Apolinar Hernández MD - 03/31/2021 9:31 AM EST [facility] Operative Note Patient Name: Suman Warner : [id number] MR#: [id number] Case Date: 03/31/2021 Surgeon: Surgeon(s) and Role: [...] EST Office Visit Radiation Oncology at [address] [phone] Tyrese Fitzgerald MD [facility] DR RADIATION [place] [address] documented as of this encounter Procedures Procedure [...] Test, Any/All Per. Nerves, Trunk Or Head ([id number]) Yes 03/31/2021 8:41 AM EST Cancer of temporal bone Microsurg Techniques, Req Oper Microscope ([id number]) Yes 03/31/2021 8:41 AM EST Cancer of temporal bone Tympanoplasty ([id number]) Yes 03/31/2021 8:41 AM EST Cancer of [...] AM EST 03/31/2021 10:50 AM EST Narrative [facility] - 03/31/2021 10:50 AM EST Specimen requisition ordered. ??Separate Pathology report to follow Apolinar Hernández MD PATHOLOGY/CYTOLOGY O ANA LUISA Performing Organization Address City/[facility]/[place] [address] * Specimen to Pathology (03/31/2021 10:50 AM EST) AP Specimen 03/31/2021 10:5 0 AM EST 03/31/2021 10:50 AM EST Narrative [facility] - 03/31/2021 10:50 AM EST Specimen requisition ordered. ??Separate Pathology report to follow Apolinar Hernández MD PATHOLOGY/CYTOLOGY O ANA LUISA Performing Organization Address City/[facility]/ZIP Co de Phone Number [facility] [place] [address] * Specimen to Pathology (03/31/2021 10:42 AM EST) AP Specimen 03/31/2021 10:4 2 AM EST 03/31/2021 10:42 AM EST Narrative [facility] - 03/31/2021 10:42 AM EST Specimen requisition ordered. ??Separate Pathology report to follow Apolinar Hernández MD PATHOLOGY/CYTOLOGY O ANA LUISA Performing Organization Address [facility] [place] [address] * Specimen to Pathology (03/31/2021 10:34 AM EST) AP Specimen 03/31/2021 10:3 4 AM EST 03/31/2021 10:34 AM EST Narrative [facility] - 03/31/2021 10:34 AM EST Specimen requisition ordered. ??Separate Pathology report to follow Apolinar Hernández MD PATHOLOGY/CYTOLOGY O ANA LUISA Performing Organization Address [facility] [place] [address] * Surgical Pathology Report (03/31/2021 10:14 AM EST) Pathologist [facility] [place] Final Diagnosis [id number] ? Location: [facility]; [facility]; A The signing pathologist has (i) examined [...] DO Verified: ??04/10/2021 13:51 ??Pathologist Performed at: ??-[facility] Dept. of Pathology, [place], [place] ADDITIONAL STUDIES [facility] was reviewed. SPECIMEN(S) SUBMITTED A - [...] labeled E1. ??sns 04/10/2021 1:51 PM EST [facility] SPECIMEN FROM SKIN / Unknown [...] PATHOLOGY/CYTOLOGY O ANA LUISA Performing Organization Address City/[facility] Co de Phone Number [facility] [place] [address] * Specimen to Pathology (03/31/2021 10:14 AM EST) AP Specimen 03/31/2021 10:1 4 AM EST 03/31/2021 10:14 AM EST Narrative [facility] - 03/31/2021 10:14 AM EST Specimen requisition ordered. ??Separate Pathology report to follow Apolinar Hernández MD PATHOLOGY/CYTOLOGY O ANA LUISA Performing Organization Address City/[facility]/ZIP Co de Phone Number [facility] [place] [address] documented in this encounter Visit Diagnoses Diagnosis [...] 0802 (New Bag - Prov ider: Arlene Phan) PRN Medication Order 03/29/2021 03/30/2021 03/31/2021 bacitracin [...] MD) documented in this encounter Care Teams Ammunition Assembly Ii Laborer Relationship Specialty Start Date End Date Ilya Medina MD PCP - General 09/25/16 documented as of this encounter
--- OUTSIDE RECORDS SUMMARY | 2024-04-29 10:26 | XMS_ITS | Encounter Summary ---
Author Organization [facility] [place] [address] Care Team Providers Care Swamper Name Role Phone Ilya Medina MD Primary Care Provider [phone] Encounter Details Date Type Department Care Team (Late st Contact Info) Description 05/31/2021 [place] [phone] Criss Estrada MSW Social History Tobacco Use [...] encounter Miscellaneous Notes * Telephone Encounter - Cirss Estrada MSW - 05/31/2021 1:24 PM EST Continuing History Instructor-Social Work Initial Assessment Office of Care Management Referral/Contact: Suman Warner is a 66 y.o. 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 Present at Visit: Phone visit today. Understanding/Adjustment/Coping: Suman reports he is coping well at this time. He is well supported in his community, by his family and by his muslim, [employer] in [place], [place]. He is hopeful and trying to stay positive and focused on next steps. Hopes/Goals: Focused on curative treatment. Seems insightful about many variables potentially impacting his care. Receptive to suggestions and communication with DH Team. If radiation is recommended post surgery, he would like to have that in [facility]. Current living situation: Suman currently lives at home with his . They own their home, and have a hefty property tax (last year was $4832.09 (2020)). Their oldest son (33 y/o) also lives with them. 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 Supports and Services: No specifics services or supports identified at this time. Suman notes his [employer] family is very important to him. Substance [...] He would prefer to have radiation in [facility]. He has been coping with the support [...] would submit a referral to [facility] Scouring Pads Supervisor. Also advised I would send a gas card to offset cost of gas. SW/ Intervention(s)/Plan: Psychosocial assessment Supportive Counseling Care Coordination Referral to [facility] Scouring Pads Supervisor Financial resources Patient Financial Assistance/Insurance -Referral to EVERARDO Minor and RHETT Immediate Barriers to Care: None Follow Up Plan: - SW to follow up next week - Referral to PFA to explore financial resources at -Advance Directives needed- SW to discuss - Mail gas card with JA application - SW remains available for psychosocial support and resource coordination as indicated. Criss Sheppard [facility] Continuing History Instructor, [facility] Pager: [phone] documented in this encounter Plan of Treatment Upcoming Encounters Date Type Department Care Team (Late st Contact Info) Description 04/29/2024 11:00 AM EST Office Visit Radiation Oncology at [address] [phone] Tyrese Fitzgerald MD [facility] [address] documented as of this encounter Visit Diagnoses Not on filedocumented in this encounter Care Teams Swamper Relationship Specialty Start Date End Date Ilya Medina MD PCP - General 09/25/16 documented as of this encounter
--- OUTSIDE RECORDS SUMMARY | 2024-04-29 10:26 | XMS_ITS | Encounter Summary ---
[place] [address] Care Team Providers Care National Accounts Sales Name Role Phone Ilya Medina MD Primary Care Provider [phone] Encounter Details Date Type Department Care Team (Late Contact Info) Description 05/08/2021 Telephone [place] [phone] Raheel Gates RN Social History Tobacco Use [...] EST Office Visit Radiation Oncology at [address] [phone] Tyrese Fitzgerald MD [facility] [place] [address] documented as of this encounter Visit Diagnoses Not on filedocumented in this encounter Care Teams National Accounts Sales Relationship Specialty Start Date End Date Ilya Medina MD PCP - General 09/25/16 documented as of this encounter
--- OUTSIDE RECORDS SUMMARY | 2024-04-29 10:26 | XMS_ITS | Encounter Summary ---
Author Organization [facility] [place] [address] Care Team Providers Care Light Rail Train Operator Name Role Phone Ilya Medina MD Primary Care Provider Encounter Details Date Type Department Care Team (Late Contact Info) Description 05/08/2021 Telephone [place] [phone] Raheel Gates, RN Social History Tobacco Use [...] EST Office Visit Radiation Oncology at [address] [phone] Tyrese Fitzgerald MD [facility] [place] [address] documented as of this encounter Visit Diagnoses Not on filedocumented in this encounter Care Teams Light Rail Train Operator Relationship Specialty Start Date End Date Ilya Medina MD PCP - General 09/25/16 documented as of this encounter
--- OUTSIDE RECORDS SUMMARY | 2024-04-29 10:26 | XMS_ITS | Encounter Summary ---
Author Organization [facility] [place] [address] Care Team Providers Care Mobile Web Application Developer Name Role Phone Ilya Medina MD Primary Care Provider [phone] Encounter Details Date Type Department Care Team (Late Contact Info) Description 06/06/2021 Telephone H[place]ology [place] [phone] Cuca Boo Social History Tobacco Use Types [...] - 06/06/2021 2:22 PM EST [facility] Construction Site Manager called Suman, I was unable to leave a message. Automated message stated that wireless caller is not available. Will try again. Cuca Boo documented in this encounter Plan of Treatment Upcoming Encounters Date Type Department Care Team (Late Contact Info) Description 04/29/2024 11:00 AM EST Office Visit Radiation Oncology at [address] [phone] Tyrese Fitzgerald MD [facility] [place] [address] documented as of this encounter Visit Diagnoses Not on filedocumented in this encounter Care Teams Mobile Web Application Developer Relationship Specialty Start Date End Date Ilya Medina MD PCP - General 09/25/16 documented as of this encounter
--- OUTSIDE RECORDS SUMMARY | 2024-04-29 10:26 | XMS_ITS | Encounter Summary ---
Author Organization [facility] Address [facility] [place] [address] Care Team Providers Care Head Banquet Waitress Name Role Phone Ilya Medina MD Primary Care Provider [phone] Encounter Details Date Type Department Care Team (Late st Contact Info) Description 06/19/2021 Telephone Hematology [place] [phone] Cuca Boo Social History Tobacco Use Types [...] - 06/19/2021 11:38 AM EST [facility] Latex Caster spoke to Suman today. We chatted about some resources. I have requested a $50 gas card from [facility]. I have sent him a list of the local pantries in their area. This could allow them to cost shift. 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 I have provided him the website link and number 015-867-2631 to [facility] for fuel assistance. I have suggested they check out [facility] for mortgage/property tax assistance if needed. I suggested we apply for [facility] davie as he has had and income decrease. He has not heard from [facility],he said his OOP medical bill is up to $8K. I sent him their application by email. Cuca Boo documented in this encounter Plan of Treatment Upcoming Encounters Date Type Department Care Team (Late st Contact Info) Description 04/29/2024 11:00 AM EST Office Visit Radiation Oncology at [address] [phone] Tyrese Fitzgerald MD [facility] [place] [address] documented as of this encounter Visit Diagnoses Not on filedocumented in this encounter Care Teams Head Banquet Waitress Relationship Specialty Start Date End Date Ilya Medina MD PCP - General 09/25/16 documented as of this encounter
--- OUTSIDE RECORDS SUMMARY | 2024-04-29 10:26 | XMS_ITS | Encounter Summary ---
Author Organization [facility] [place] [address] Care Team Providers Care Data Communications Engineer Name Role Phone Ilya Medina MD Primary Care Provider [phone] Encounter Details Date Type Department Care Team (Late Contact Info) Description 06/20/2021 Orders [place] [address] Leatha Vora, RN *Screening for COVID-19 virus [...] AM EST Office Visit Radiation Oncology at [address] [phone] Tyrese Fitzgerald MD [facility] [place] [address] documented as of this encounter Visit Diagnoses Diagnosis Encounter for screening laboratory testing for COVID-19 virus documented in this encounter Care Teams Data Communications Engineer Relationship Specialty Start Date End Date Ilya Medina MD PCP - General 09/25/16 documented as of this encounter
--- OUTSIDE RECORDS SUMMARY | 2024-04-29 10:26 | XMS_ITS | Encounter Summary ---
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 Procedures PRO RESECT TEMPORAL BONE, KITCHEN MANAGER APPRCH PRO MASTOIDECTOMY, COMPLETE PRG SOMATOSENSORY TEST, [...] Expiration Date Visits Re quested Visits Authorized [id number] 1 1 Encounter Details Date Type Department Care Team (Late st Contact Info) Description 06/28/2021 7:30 AM EST - 06/28/2021 4:15 PM EST Surgery [place] [address] Apolinar Hernández MD [facility] [place]OLARY[place] [address] @RESECTION TEMPORAL BONE, EXTERNAL APPROACH (WRVU 37.42) [...] for??Left 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 -The ENT triage nurse is available at [phone] -For urgent issues during evenings (5 PM - 7 AM) and weekends the ENT resident regional dedicated truck driver can be reached through the main hospital dragline operator helper at [phone] Follow Up: You will need to follow [...] 9:40 AM Apolinar Hernández MD Otolaryngology at [facility] Arrive at: [place] Area [phone] 08/04/2021 10:30 AM Apolinar Hernández MD Otolaryngology at [facility] Arrive at: [place] [phone] 10/06/2021 11:30 AM Apolinar Hernández MD Otolaryngology at [facility] Arrive at: [place] [phone] Future Orders Complete By Expires Referral to Home Health - at DISCHARGE [[id number] CPT(R)] As directed Process Instructions: Scheduling Instructions: Comments: DOCUMENTATION FOR VNA SERVICES (INCLUDING THOSE PATIENTS WITH MEDICARE COVERAGE REQUIRING HOME VNA SERVICES AND/OR HOSPICE SERVICES) PATIENT'S LOCATION: Suman Warner [address] [place] [phone] (home) Cell: Telephone Information: Meal Attendant's Name: Raven In discussion with the attending physician, it is certified that this patient is under their care and that they, or a Nurse Practitioner,Clinical Nurse specialist or Physician Telephone Recorder who is working directly with them, had [...] MAURO drain care. HOME HEALTH CARE AGENCY: [facility] PHONE: [phone] FAX: [phone] Start of care: Within 24 to 48 [...] MD [address] / [place] [phone] All A agencies which cover the area of patient's residence have been reviewed, either verbally maría writing, and patient/family have chosen the home health care agency noted Questions: Agency name and contact information: [facility] Patient location post discharge: [facility] What services are requested: Registered Nurse [...] __ Primary Care Doctor: Ilya Medina MD [phone] Signed: Allegra Aldana MD 07/01/2021 documented in [...] please callthe Ophthalmology department right away at: [phone] You should call your doctor if you develop: -Increasing pain and redness -Increasing drainage from the wound -Fever > 38.5Celsius or 101 Fahrenheit -Bleeding Contact: -You can reach the ENT clinic at [phone] for appointment questions. -The ENT triage nurse is available at [phone] -For urgent issues during evenings (5 PM - 7 AM) and weekends the ENT resident regional dedicated truck driver can be reached through the main hospital dragline operator helper at [phone] Follow Up: You will need to follow [...] 9:40 AM Apolinar Hernández MD Otolaryngology at [facility] Arrive at: [place] [phone] 08/04/2021 10:30 AM Apolinar Hernández MD Otolaryngology at [facility] Arrive at: [place] [phone] 10/06/2021 11:30 AM Apolinar Hernández MD Otolaryngology at [facility] Arrive at: [place] Area [phone] Future Orders Complete By Expires Referral to Home Health - at DISCHARGE [[id number] CPT(R)] As directed Process Instructions: Scheduling Instructions: Comments: DOCUMENTATION FOR VNA SERVICES (INCLUDING THOSE PATIENTS WITH MEDICARE COVERAGE REQUIRING HOME VNA SERVICES AND/OR HOSPICE SERVICES) PATIENT'S LOCATION: Suman Warner [address] [facility] [address] (home) Cell: Telephone Information: Meal Attendant's Name: Raven In discussion with the attending physician, it is certified that this patient is under their care and that they, or a Nurse Practitioner,Clinical Nurse specialist or Physician Telephone Recorder who is working directly with them, had [...] MAURO drain care. HOME HEALTH CARE AGENCY: [facility]. PHONE: [phone] FAX: [phone] Start of care: Within 24 to 48 [...] MD [address] / [place] [phone] All A agencies which cover the area of patient's residence have been reviewed, either verbally maría writing, and patient/family have chosen the home health care agency noted Questions: Agency name and contact information: [facility] Patient location post discharge: home [place] What services are requested: Registered Nurse Start [...] history (see PSH). 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 Home set-up: 2 level home Stairs: 4 steps with rail to enter, FOS w/ rail to 2nd level of home. Tub shower w/ grab bars. Baseline Mobility: Independent & working Precautions/Special Considerations: Keep head neutral , no turning head to Right. Ambulate every shift/AAT, up with assistance post-op, regular diet. COEUR D'ALENE, hearing aide R ear. Corneal abrasion L [...] met, no PT needs, amb w/ 5 [place] staff). Goals met. No further PT needs. Amb with mob preparatory technician this afternoon and nursing over weekend. [...] for this consult. MAYTE BECKFORD PT Pager: [phone] Physical Therapy Inpatient Rehabilitation Department Time IN [...] a 66 y.o. 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 PRG SOMATOSENSORY TEST, ANY/ALL PER. NERVES, TRUNK OR HEAD Left 06/28/2021 FACIAL NERVE MONITORING, SETUP PERIPHERAL (WRVU 0.54) performed by Apolinar Hernández MD at [facility] OR ??? PRO ADJ TISS TRANSFER/REARRANGEMENT ANY AREA 30.1-60 SQCM Left 06/28/2021 ADJACENT TISSUE TRANSFER OR REARRANGEMENT; 30.1 TO 60.0 SQ CM, HEAD/NECK (WRVU 12.65) performed by Jose D Hoang MD at [facility] OR ??? PRO COLONOSCOPY, BIOPSY 10/09/2012 COLONOSCOPY FLEXIBLE, WITH BX performed by Xiang Owen MD at [facility] ENDOSCOPY ??? PRO EXC PAROTD, TOTAL, DISSECT 5TH NERV Left 06/28/2021 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, TOTAL, WITH DISSECTION AND PRESERVATION OF FACIAL NERVE(WRVU 19.53) performed by Jose D Hoang MD at [facility] OR ??? PRO MASTOIDECTOMY, COMPLETE Left 06/28/2021 MASTOIDECTOMY, COMPLETE (WRVU 12.56) performed by Apolinar Hernández MD at [facility] OR ??? PRO MICROSURG TECHNIQUES, REQ OPER MICROSCOPE Left 03/31/2021 MICROSCOPE USE (WRVU 3.46) performed by Apolinar Hernández MD at [facility] OR ??? PRO MICROSURG TECHNIQUES, REQ OPER MICROSCOPE N/A 06/28/2021 MICROSCOPE USE (WRVU 3.46) performed by Apolinar Hernández MD at [facility] OR ? ? PRO MUSCLE MYOCUTANEOUS/FASCIOUCUTANEOUS FLAP HEAD&NECK W/NAMED VASC PEDCL Left 06/28/2021 FLAP, MYOCUTANEOUS OR FASCIOCUTANEOUS, HEAD & NECK W NAMED VASC PEDICLE performed by Jose D Hoang MD at [facility] OR ??? PRO REMOVAL NODES, NECK, CERV MOD RAD Left 06/28/2021 @CERVICAL LYMPHADENECTOMY (MODIFIED RADICAL NECK DISSECTION) (WRVU 23.95) performed by Jose D Hoang MD at [facility] OR ??? PRO RESECT TEMPORAL BONE, KITCHEN MANAGER APPRCH Left 06/28/2021 @RESECTION TEMPORAL BONE, EXTERNAL APPROACH (WRVU 37.42) performed by Apolinar Hernández MD at [facility] PRO ??? PRO TYMPANOPLASTY Left 03/31/2021 TYMPANOPLASTY (WRVU 10.05) performed by Apolinar Hernández MD at [facility] OR ??? PRO UPPER GI ENDOSCOPY, BIOPSY 03/20/2011 UPPER GASTROINTESTINAL ENDOSCOPY,WITH BIOPSY SINGLE OR MULTIPLE performed by JORDAN RAMOS at [facility] Active Non-Hospital Problems Diagnosis ??? Viral warts ??? Diarrhea ??? Chilblains ??? Visit for suture removal ??? Nevus ??? Dizziness ??? GERD (gastroesophageal reflux disease) ??? Chronic serous otitis media ??? Dysplastic nevus ??? Atypical nevus ??? 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 Home set-up: 2 level home Stairs: 4 steps with rail to enter, FOS w/ rail to 2nd level of home. Tub shower w/ grab bars. Baseline Mobility: Independent & working Precautions/Special Considerations: Keep head neutral , no turning head to Right. Ambulate every shift/AAT, up with assistance post-op, regular diet. COEUR D'ALENE, hearing aide R ear. Corneal abrasion L [...] for this consult. MAYTE BECKFORD, PT Pager: [phone] Physical Therapy Inpatient Rehabilitation Department Time IN [...] a 66 y.o. 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 OTOLARYNGOLOGY - HEAD & NECK SURGERY POST OP CHECK Name: Suman Warner Age/Sex: 66 y.o. male Attending: Apolinar Hernández MD Hospital Day: 2 1 Day Post-Op Patient ID/Reason for Admission Suman Warner is a 66 y.o. male [id number]??SCCa of the??Left??Middle Ear/Tympanic Membrane??in the Hypotympanum Interval [...] PGY1 06/29/21 5:10 AM ENT Team Pager: [phone] * Gavi Padron RN - 06/28/2021 9:10 [...] meets PACU discharge criteria. [facility] to give report. documented in this [...] scheduled operation. Jayne Darby MD, PGY5, Pager [phone] 06/28/21 6:39 AM ENT Team Pager: [phone] * Jayne Darby MD - 06/28/2021 6:38 [...] scheduled operation. Jayne Darby MD, PGY5, Pager [phone] 06/28/21 6:37 AM ENT Team Pager: [phone] Associated attestation - Apolinar Hernández MD - [...] Neurotology Otolaryngology - Head & Neck Surgery [facility] documented in this encounter Miscellaneous Notes * Initial Assessments - Maria D Reyes OTA - 07/01/2021 1:38 PM EST Occupational Therapy Treatment notes #2 Patient profile: Suman Warner is a 66 y.o. 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 Social History: Patient lives with his . 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 corrective lenses multimedia artist either contacts or glasses. Sustained L corneal [...] Minutes, Occupational Therapy: 21 (1x theract) Pager: [phone] ZACHARY Orozco 07/01/2021 Occupational Therapy Rehabilitation Department [...] male admitted on 06/28/2021 with PMH of [id number]??SCCa of the??Left??Middle Ear/Tympanic Membrane??in the Hypotympanum who [...] 0.54) performed by Apolinar Hernández MD at [facility] OR ??? PRG SOMATOSENSORY TEST, ANY/ALL PER. NERVES, TRUNK OR HEAD Left 06/28/2021 FACIAL NERVE MONITORING, SETUP PERIPHERAL (WRVU 0.54) performed by Apolinar Hernández MD at [facility] OR ??? PRO ADJ TISS TRANSFER/REARRANGEMENT ANY AREA 30.1-60 SQCM Left 06/28/2021 ADJACENT TISSUE TRANSFER OR REARRANGEMENT; 30.1 TO 60.0 SQ CM, HEAD/NECK (WRVU 12.65) performed by Jose D Hoang MD at [facility] OR ??? PRO COLONOSCOPY, BIOPSY 10/09/2012 COLONOSCOPY FLEXIBLE, WITH BX performed by Xiang Owen MD at [facility] ??? PRO EXC PAROTD, TOTAL, DISSECT 5TH NERV Left 06/28/2021 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, TOTAL, WITH DISSECTION AND PRESERVATION OF FACIAL NERVE(WRVU 19.53) performed by Jose D Hoang MD at [facility] OR ??? PRO MASTOIDECTOMY, COMPLETE Left 06/28/2021 MASTOIDECTOMY, COMPLETE (WRVU 12.56) performed by Apolinar Hernández MD at [facility] OR ??? PRO MICROSURG TECHNIQUES, REQ OPER MICROSCOPE Left 03/31/2021 MICROSCOPE USE (WRVU 3.46) performed by Apolinar Hernández MD at [facility] OR ??? PRO MICROSURG TECHNIQUES, REQ OPER MICROSCOPE N/A 06/28/2021 MICROSCOPE USE (WRVU 3.46) performed by Apolinar Hernández MD at [facility] OR ? ? PRO MUSCLE MYOCUTANEOUS/FASCIOUCUTANEOUS FLAP HEAD&NECK W/NAMED VASC PEDCL Left 06/28/2021 FLAP, MYOCUTANEOUS OR FASCIOCUTANEOUS, HEAD & NECK W NAMED VASC PEDICLE performed by Jose D Hoang MD at [facility] OR ??? PRO REMOVAL NODES, NECK, CERV MOD RAD Left 06/28/2021 @CERVICAL LYMPHADENECTOMY (MODIFIED RADICAL NECK DISSECTION) (WRVU 23.95) performed by Jose D Hoang MD at [facility] OR ??? PRO RESECT TEMPORAL BONE, KITCHEN MANAGER APPRCH Left 06/28/2021 @RESECTION TEMPORAL BONE, EXTERNAL APPROACH (WRVU 37.42) performed by Apolinar Hernández MD at [facility] PRO ??? PRO TYMPANOPLASTY Left 03/31/2021 TYMPANOPLASTY (WRVU 10.05) performed by Apolinar Hernández MD at [facility] OR ??? PRO UPPER GI ENDOSCOPY, BIOPSY 03/20/2011 UPPER GASTROINTESTINAL ENDOSCOPY,WITH BIOPSY SINGLE OR MULTIPLE performed by JORDAN RAMOS at [facility] Social History: Patient lives with his . 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 corrective lenses multimedia artist either contacts or glasses. Sustained L corneal [...] and measurable assessment of functional outcome. Pager: [phone] Zoe Barboza OT 06/29/2021 Occupational Therapy Rehabilitation Department * Initial Assessments - Phyllis Baez RN - 06/29/2021 8:55 AM EST Office of Care Management Initial Assessment Phyllis Baez RN reviewed record and discussed patient with Care Team. Source of Information: Team, bedside nurse, medical record, and Patient, Chart test man CM Introduced self/reviewed role; services accepted. Reason for Hospitalization: Planned surgery Covid Vaccination Status: 1st, 2nd & booster ([employer];also had PNA VAX this year) Last COVID [...] Home Address confirmed as: [address] [facility] [address] Social & Family Supports: All names listed [...] MEDICARE SUPPLEMENT Prescription Coverage: Yes Preferred Pharmacy: [id number] AT [address] [address] Status: Patient is a : No Primary Care Provider: Ilya Medina MD [phone] Patient/Caregiver Goals of Treatment: return home with [...] where referrals are placed. Provided patient with [facility] Star Quality Rating for Home care hand out. Patient requests referral to [facility] PHONE: [phone] FAX: [phone]. Expected date of discharge: 06/30/21. Referral routed to the Contract Associate for matching with agency/vendor and to provide [...] / pills okay. Agrees with referral to fdc from [facility]. will be transporting pt home; gave CM contact number and will continue to follow. A member of the Care Management team will continue to monitor progress, follow for continuity of care and assist with transition of care planning. 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 [...] Neurotology Otolaryngology - Head & Neck Surgery [facility] * Op Note - Jose D Hoang MD - 06/28/2021 9:10 AM EST [facility] Operative Note Patient Name: Suman Warner : [id number] MR#: [id number] Case Date: 06/28/2021 Surgeon: Jose D Hoang MD Divakar, Prashanthi, MD Bell, Rebecca, MD Diagnosis: [id number] 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 Postoperative diagnosis: [id number] SCCa of the Middle Ear/Tympanic Membrane in [...] Question Answer Comment Clinical History and Diagnosis: [id number] 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 Specimen Source: Left Neck Level 1B Specimen Type: excision Time specimen removed from patient: 8:39 PM Number of tissue samples (in container) 1 06/28/21203806/28/212024 Specimen to Pathology (Multiple Specimen to Pathology requests panel ) ONE TIME Comments: Left Perifacial Node Question Answer Comment Clinical History and Diagnosis: [id number] 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 No Biospecimen to store? 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 No Biospecimen to store? 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 No Biospecimen to store? 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 No Biospecimen to store? 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 No Biospecimen to store? 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 No Biospecimen to store? 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 Specimen Source: LEFT SUPERIOR MEDIAL MARGIN, ORIENTATION PER CARD Specimen Type: biopsy Time specimen removed from patient: 11:54 AM Number of tissue samples (in container) 1 06/28/21 1154 06/28/21 1125 Specimen to Pathology ONE TIME Comments: OR#10, [id number] Question Answer Comment Clinical History and Diagnosis: [id number] 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 Specimen Source: LEFT anterolateral canal margin Specimen Type: biopsy Time specimen removed from patient: 11:01 AM Number of tissue samples (in container) 1 06/28/21 1120 06/28/21 1100 Specimen to Pathology ONE TIME Comments: OR#2, [id number] Question Answer Comment Clinical History and Diagnosis: [id number] SCCa of the Middle Ear/Tympanic Membrane in [...] radical canal wall down tympanomastoidectomy now with [id number] SCCa of the Middle Ear/Tympanic Membranein the [...] A devendra marcella was then used to czech the medial bony wall of the mesotympanum [...] EST Office Visit Radiation Oncology at [address] [address] Tyrese Fitzgerald MD [facility] [place] [address] documented as of this encounter Procedures Procedure [...] Area, Defect 30.1 Sq Cm To 60.0 (29731) 06/28/2021 7:43 AM EST Malignant neoplasm of bones of skull and face, except mandible Exc Parotd, Total, Dissect 5Th Nerv (01932) 06/28/2021 7:43 AM EST Malignant neoplasm of bones of skull and face, except mandible Muscle Myocutaneous/Fascioucut aneous Flap Head&Neck W/Named Vasc Pedcl (14842) 06/28/2021 7:43 AM EST Malignant neoplasm of bones of skull and face, except mandible Cervical Lymphadectomy Modified Radical Neck Dissection (95332) 06/28/2021 7:43 AM EST Malignant neoplasm of bones of skull and face, except mandible Microsurg Techniques, Req Oper Microscope (26906) 06/28/2021 7:43 AM EST 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 Nerves, Trunk Or Head (40344) 06/28/2021 7:43 AM EST Malignant neoplasm of bones of skull and face, except mandible Mastoidectomy, Complete (41798) 06/28/2021 7:43 AM EST Malignant neoplasm of bones of skull and face, except mandible Resect Temporal Bone, Strategy Specialist Apprch ([id number]) 06/28/2021 7:43 AM EST Malignant neoplasm of [...] 12:40 AM EST) Neutrophil % 88.8 % [facility] Neutrophil Absolute 10.40(H) 1.70 - 6.10 x10(3)/mc L [facility] Lymph % 5.2 % [facility] Lymphocytes Abs 0.6(L) 0.9 - 3.2 x10(3)/mc L [facility] Monocyte % 5.6 % [facility] Monocyte Abs 0.6 0.3 - 0.9 x10(3)/mc L [facility] Eos % 0.0 % [facility] Eosinophils Abs 0.0 0.0 - 0.4 x10(3)/[facility] Basophil % 0.1 % [facility] Baso Absolute 0.0 0.0 - 0.1 x10(3)/[facility] Immature Gran % 0.30 % [facility] Comment: Immature granulocytes(IG's)percentage and absolute count will include metamyelocytes, myelocytes, and promyelocytes. Blood smears from CBCs yielding IG's will be scanned manually for concordance. If this scan disagrees with the automated IG or if promyelocytes are noted, a manual differential will be performed. Immature Gran Absolute 0.03 0.00 - 0.04 x10(3)/[facility] Blood 06/29/2021 12:4 0 AM EST 06/29/2021 12:59 AM EST Narrative Resulting Agency Comment Spec In Lab Jayne Darby MD HEMATOLOGY ORDERAB LES [facility] [place] [address] * (ABNORMAL) Hemogram (06/29/2021 12:40 AM EST) White Blood Cell 11.7(H) 4.0 - 9.5 x10(3)/[facility] Red Blood Cell 4.40(L) 4.58 - 5.54 x10(6)/[facility] Hemoglobin 14.0 13.7 - 16.5 g/dL [...] [facility] NRBC% auto 0.0 % [facility] NRBC Absolute 0.000 0.000 - 0.000 x10(3)/mc L [facility] Blood 06/29/2021 12:4 0 AM EST 06/29/2021 12:59 AM EST Narrative Resulting Agency Comment Spec In Lab Jayne Darby MD HEMATOLOGY ORDERAB LES Performing Organization Address City/State/[facility] Co de Phone Number [facility] [place] [address] * (ABNORMAL) Basic Metabolic Panel (non-fasting) (06/29/2021 [...] Hernández MD CHEMISTRY ORDERABLES Performing Organization Address [facility] Co de Phone Number [facility] [place] [address] * Specimen to Pathology (06/28/2021 8:39 PM EST) AP Specimen 06/28/2021 8:39 PM EST 06/28/2021 8:39 PM EST Narrative [facility] - 06/28/2021 8:39 PM EST Specimen requisition ordered. ??Separate Pathology report to follow Apolinar Hernández MD PATHOLOGY/CYTOLOGY O RDERABLES Performing Organization Address [facility] Co de Phone Number [facility] [place] [address] * Specimen to Pathology (06/28/2021 8:23 PM EST) AP Specimen 06/28/2021 8:23 PM EST 06/28/2021 8:23 PM EST Narrative [facility] - 06/28/2021 8:23 PM EST Specimen requisition ordered. ??Separate Pathology report to follow Apolinar Hernández MD PATHOLOGY/CYTOLOGY O RDERABLES Performing Organization Address [facility]/[place] [address] * Specimen to Pathology (06/28/2021 6:22 PM EST) AP Specimen 06/28/2021 6:22 PM EST 06/28/2021 6:22 PM EST Narrative [facility] - 06/28/2021 6:22 PM EST Specimen requisition ordered. ??Separate Pathology report to follow Apolinar Hernández MD PATHOLOGY/CYTOLOGY O RDERABLES Performing Organization Address [facility] [place] [address] * (ABNORMAL) BLOOD GAS 2 ARTERIAL (06/28/2021 [...] [facility] FIO2 Art 43 % [facility] PF Ratio Art 337 [facility] Blood 06/28/2021 5:46 PM EST 06/28/2021 5:46 PM EST Apolinar Hernández MD POINT OF CARE TEST O RDERABLES Performing Organization Address [facility] de Phone Number [facility] [place] [address] * Specimen to Pathology (06/28/2021 5:40 PM EST) AP Specimen 06/28/2021 5:40 PM EST 06/28/2021 5:40 PM EST Narrative [facility] - 06/28/2021 5:40 PM EST Specimen requisition ordered. ??Separate Pathology report to follow Jose D Hoang MD PATHOLOGY/CYTOLOGY ORDERABLES Performing Organization Address [facility] Co de Phone Number [facility] [place] [address] * Specimen to Pathology (06/28/2021 5:40 PM EST) AP Specimen 06/28/2021 5:40 PM EST 06/28/2021 5:40 PM EST Narrative [facility] - 06/28/2021 5:40 PM EST Specimen requisition ordered. ??Separate Pathology report to follow Jose D Hoang MD PATHOLOGY/[place] [address] * Specimen to Pathology (06/28/2021 5:40 PM EST) AP Specimen 06/28/2021 5:40 PM EST 06/28/2021 5:40 PM EST Narrative [facility] - 06/28/2021 5:40 PM EST Specimen requisition ordered. ??Separate Pathology report to follow Jose D Hoang MD PATHOLOGY/CYTOLOGY ORDERABLES Performing Organization Address City/[facility]/[place] [address] * Specimen to Pathology (06/28/2021 5:40 PM EST) AP Specimen 06/28/2021 5:40 PM EST 06/28/2021 5:40 PM EST Narrative [facility] - 06/28/2021 5:40 PM EST Specimen requisition ordered. ??Separate Pathology report to follow Jose D Hoagn MD PATHOLOGY/CYTOLOGY ORDERABLES Performing Organization Address City/[facility]/[place] [address] * Specimen to Pathology (06/28/2021 5:40 PM EST) AP Specimen 06/28/2021 5:40 PM EST 06/28/2021 5:40 PM EST Narrative [facility] - 06/28/2021 5:40 PM EST Specimen requisition ordered. ??Separate Pathology report to follow Jose D Hoang MD PATHOLOGY/CYTOLOGY ORDERABLES Performing Organization Address City/[facility]/[place] [address] * Specimen to Pathology (06/28/2021 3:04 PM EST) AP Specimen 06/28/2021 3:04 PM EST 06/28/2021 3:04 PM EST Narrative [facility] - 06/28/2021 3:04 PM EST Specimen requisition ordered. ??Separate Pathology report to follow Apolinar Hernández MD PATHOLOGY/[place] [address] * Specimen to Pathology (06/28/2021 12:54 PM EST) AP Specimen 06/28/2021 12:5 4 PM EST 06/28/2021 12:54 PM EST Narrative [facility] - 06/28/2021 12:54 PM EST Specimen requisition ordered. ??Separate Pathology report to follow Apolinar Hernández MD PATHOLOGY/CYTOLOGY O ANA LUISA Performing Organization Address City/[facility]/[place] [address] * Specimen to Pathology (06/28/2021 12:54 PM EST) AP Specimen 06/28/2021 12:5 4 PM EST 06/28/2021 12:54 PM EST Narrative [facility] - 06/28/2021 12:54 PM EST Specimen requisition ordered. ??Separate Pathology report to follow Apolinar Hernández MD PATHOLOGY/[place] [address] * Specimen to Pathology (06/28/2021 12:41 PM EST) AP Specimen 06/28/2021 12:4 1 PM EST 06/28/2021 12:41 PM EST Narrative [facility] - 06/28/2021 12:41 PM EST Specimen requisition ordered. ??Separate Pathology report to follow Apolinar Hernández MD PATHOLOGY/[place] [address] * Specimen to Pathology (06/28/2021 11:54 AM EST) AP Specimen 06/28/2021 11:5 4 AM EST 06/28/2021 11:54 AM EST Narrative [facility] - 06/28/2021 11:54 AM EST Specimen requisition ordered. ??Separate Pathology report to follow Apolinar Hernández MD PATHOLOGY/CYTOLOGY O ANA LUISA Performing Organization Address [facility] [place] [address] * Specimen to Pathology (06/28/2021 11:20 AM EST) AP Specimen 06/28/2021 11:2 0 AM EST 06/28/2021 11:20 AM EST Narrative [facility] - 06/28/2021 11:20 AM EST Specimen requisition ordered. ??Separate Pathology report to follow Apolinar Hernández MD PATHOLOGY/CYTOLOGY O ANA LUISA Performing Organization Address [facility] [place] [address] * Specimen to Pathology (06/28/2021 10:58 AM EST) AP Specimen 06/28/2021 10:5 8 AM EST 06/28/2021 10:58 AM EST Narrative [facility] - 06/28/2021 10:58 AM EST Specimen requisition ordered. ??Separate Pathology report to follow Apolinar Hernández MD PATHOLOGY/CYTOLOGY O ANA LUISA Performing Organization Address [facility] [place] [address] * Surgical Pathology Report (06/28/2021 10:51 AM EST) Final Diagnosis [id number] ? Location: [facility]; [facility]; A The signing pathologist has (i) examined [...] Shultz Verified: ??07/05/2021 12:00 ??Pathologist Performed at: ??-[facility] Dept. of Pathology, [place], [place] DISCUSSION It is difficult to assign an AJCC pathologic stage due to the inability to assess largest tumor dimension. No ?? perineural or lymphovascular invasion is recognized. Clinical/surgical correlation is needed to determine final margin status with regard to separately submitted involved specimens. ADDITIONAL STUDIES Whole slide scan: order entry representative slide(s) SPECIMEN(S) SUBMITTED A - LEFT [...] Neck Level 1B, excision (1) CLINICAL INFORMATION [id number] SCCa of the middle ear/tympanic membrane in [...] 0.6 cm in greatest dimension. Sections/Processi ng: Product Marketing Programs Manager sections in 5 cassettes as follows: ?H1: [...] 0.6 cm in greatest dimension. Sections/Processi ng: Product Marketing Programs Manager sections in 8 cassettes as follows: ?K1-K2: [...] larger nodule is inked black Sections/Processi ng: Product Marketing Programs Manager sections in 3 cassettes as follows: ?L1-L2: ??Product Marketing Programs Manager sections of larger nodule ?L3: ??Detached nodules [...] and reviewed with Dr. Ireland Sections/Processi ng: Product Marketing Programs Manager sections in 8 cassettes as follows: ?M1: ??Product Marketing Programs Manager section from slice I to include superior-orange inked margin ? as well as medial-red lateral-yellow inked margins, perpendicular slices ?M2: ??Product Marketing Programs Manager section from slice III, to include posterior-black, medial- ?red, and lateral-yellow margins ?M3: ??Product Marketing Programs Manager section from slice from V to include blue-anterior, red- ?medial, and yellow-lateral inked margins ?M4: ??Product Marketing Programs Manager sections from slice VII to include black-posterior, medial- ?red, and lateral-yellow margins ?M5: ??Product Marketing Programs Manager section of vaguely nodular area from slice VII to include ? medial-red and anterior-blue inked margins ?M6: ??Product Marketing Programs Manager section of vaguely nodular area with hemorrhage from slice IX ? to include medial-red, lateral-yellow, and posterior-black margins ?M7: ??Product Marketing Programs Manager sections from slice X to include green-inked inferior, red- ?lateral, and yellow-medial inked margins ?M8: ??Product Marketing Programs Manager section of loosely adherent nodule from slice x N - Labeled/Fixative: Left perifacial node, fresh. Quantity/Size: Single, 2.7 x 2.0 x 1.0 cm. Tissue Description: Adipose tissue with two lymph nodes, up to 2.0 x 1.0 x 0.9 cm in greatest dimension. Sections/Processi ng: Product Marketing Programs Manager sections in 4 cassettes as follows: ?N1-N3: [...] cm piece of cauterized muscle Sections/Processi ng: Product Marketing Programs Manager sections in 11 cassettes as follows: ?O1: ??Largest lymph node submitted in toto ?O2: ??Four lymph node candidates submitted in toto ?O3-O9: ??Remaining adipose submitted entirely ?O10: ??Product Marketing Programs Manager section of skeletal muscle ?O11: ??Product Marketing Programs Manager section of salivary gland ??SAS ?Frozen Section FROZEN SECTION DIAGNOSIS GFS1 - Left tissue at round window, biopsy, ?for frozen section: - Negative for malignancy. . FROZEN SECTION DIAGNOSIS 06/28/21 15:26 / DAK Electronically signed by: ?Racquel Ireland MD Verified: ??06/28/2021 15:27 ??Pathologist Performed at: ??-[facility] Dept. of Pathology, [place], [place] This intraoperative consultation should be interpreted [...] EST Jose D Hoang MD PATHOLOGY/CYTOLOGY ORDERABLES [facility] [place] [address] documented in this encounter Visit Diagnoses Diagnosis [...] Eyes, 2 TIMES DAILY, First dose on [facility] 06/29/21 at 0900, Until Discontinued, Routine [...] Routine documented in this encounter Care Teams Ballpoint Pen Assembly Machine Operator Relationship Specialty Start Date End Date Ilya Medina MD PCP - General 09/25/16 documented as of this encounter
--- OUTSIDE RECORDS SUMMARY | 2024-04-29 10:26 | XMS_ITS | Encounter Summary ---
Author Organization [facility] [place] [address] Care Team Providers Care Fast Food Restaurant Manager Name Role Phone Ilya Medina MD Primary Care Provider [phone] Encounter Details Date Type Department Care Team (Late st Contact Info) Description 04/27/2021 Patient Outreach [place] [phone] Estefany Quiñones, RN Social History Tobacco Use [...] Quiñones RN - 04/30/2021 2:23 PM EST [facility] Oncology Nurse Navigation Patient Intake & Care [...] positive at this appointment. 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 He retired from his last position in November 2020. 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 His also works as a after school tutor. They love having weekends free, time off throughout the year, and time off during the summer. During the summer they love to take 6 weeksor so and go camping. Suman also enjoys golfing. Suman has a lot of local social support. He has 2 adult sons, both of which are local. 1 son worksfor IT in [place], [place], and has twin sons. Suman also has a 5-1/2-year-old granddaughter whohe takes care of after school. 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 Suman knows to discuss th is matter with his agricultural and forestry supervisor at work. Outlined main ancillary services available to help support patient, including Social Work, Psycho Onc, Nutrition, ROBOTIC WELD TECHNICIAN, and PT. Reviewed general timeline of surgery with potential adjuvant treatment, emphasizing the importance of early dental extractions, if needed. Also discussed long-term follow-up schedule. If adjuvant treatment is needed, patient would prefer [facility]. PLAN: ??? Surgery per Steven. Head and Neck Oncology Nurse Navigator is ARIANE Saab, RN. documented in this encounter Plan of Treatment Upcoming Encounters Date Type Department Care Team (Late st Contact Info) Description 04/29/2024 11:00 AM EST Office Visit Radiation Oncology at [address] [phone] Tyrese Fitzgerald MD [facility] DR [place] [address] documented as of this encounter Visit Diagnoses Not on filedocumented in this encounter Care Teams Fast Food Restaurant Manager Relationship Specialty Start Date End Date Ilya Medina MD PCP - General 09/25/16 documented as of this encounter
--- OUTSIDE RECORDS SUMMARY | 2024-04-29 10:26 | XMS_ITS | Encounter Summary ---
Author Organization [facility] Address [facility] [place] [address] Care Team Providers Care Professor Sculpture Name Role Phone Ilya Medina MD Primary Care Provider [phone] Encounter Details Date Type Department Care Team (Late st Contact Info) Description 04/10/2021 10:40 AM EST Office [place] [address] Nash Alberts, PA [facility] [place] [address] Cancer of temporal bone; Chronic tubotympanic suppurative [...] 05/15/20 SUZIE Vallecillo, MS, PA-C, [place] [address] phone: [phone] documented in this encounter Plan of Treatment Upcoming Encounters Date Type Department Care Team (Late st Contact Info) Description 04/29/2024 11:00 AM EST Office Visit Radiation Oncology at [address] [phone] Tyrese Fitzgerald MD 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
--- OUTSIDE RECORDS SUMMARY | 2024-04-29 10:26 | XMS_ITS | Encounter Summary ---
Author Organization [facility] [place] [address] Care Team Providers Care Plate Cleaner Name Role Phone Ilya Medina MD Primary Care Provider Encounter Details Date Type Department Care Team (Late Contact Info) Description 04/03/2021 Telephone [place] [phone] Nga Winter RN Social History Tobacco Use [...] EST Office Visit Radiation Oncology at [address] [phone] Tyrese Fitzgerald MD [facility] [place] [address] documented as of this encounter Visit Diagnoses Not on filedocumented in this encounter Care Teams Plate Cleaner Relationship Specialty Start Date End Date Ilya Medina MD PCP - General 09/25/16 documented as of this encounter
--- OUTSIDE RECORDS SUMMARY | 2024-04-29 10:26 | XMS_ITS | Encounter Summary ---
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 Procedures PRO RESECT TEMPORAL BONE, SHAFT SINKER APPRCH PRO MASTOIDECTOMY, COMPLETE PRG SOMATOSENSORY TEST, [...] Expiration Date Visits Re quested Visits Authorized [id number] 1 1 Encounter Details Date Type Department Care Team (Late st Contact Info) Description 06/28/2021 7:44 AM EST Anesthesia Event [place] [address] Arvind Gomes MD [facility] [place] [address] Clint Rangel MD [facility] [place] [address] Anesthesia Record Procedure Summary Procedure Name Responsible [...] and acknowledgement of understanding Ru Morse CRNA 1413 Break/Relief In I assumed ca re for [...] post-operative course (including disposition.) Ru Morse CRNA 1745 ABG Data Arterial Blood Gas result: pH [...] 0707; metacarpal vein (top of hand), right; [id number] catheter system; Anatomical Landmarks; 22 gauge; Alejandra; [...] Removal Time: 232706/28/21 075 by Ru Morse, HOG TRADER 06/28/212327 by Arvind Gomes MD (RETIRED) Peripheral [...] Procedure Summary Date: 06/28/21 Room / Location: [facility] OR [address] [place] [address] MAIN OR Anesthesia Start: 743 Anesthesia Stop: [...] bones of skull and face, except mandible ([id number] 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 Patient Location: PACU/[facility] Level of Consciousness: Conscious but Sleepy Pain [...] 0.54) performed by Apolinar Hernández MD at [facility] MAIN OR ??? PRO COLONOSCOPY, BIOPSY 10/09/2012 COLONOSCOPY FLEXIBLE, WITH BX performed by Xiang Owen MD at [facility] ENDOSCOPY ??? PRO MICROSURG TECHNIQUES, REQ OPER MICROSCOPE Left 03/31/2021 MICROSCOPE USE (WRVU 3.46) performed by Apolinar Hernández MD at [facility] MAIN OR ??? PRO TYMPANOPLASTY Left 03/31/2021 TYMPANOPLASTY (WRVU 10.05) performed by Apolinar Hernández MD at [facility] MAIN OR ??? PRO UPPER GI ENDOSCOPY, BIOPSY 03/20/2011 UPPER GASTROINTESTINAL ENDOSCOPY,WITH BIOPSY SINGLE OR MULTIPLE performed by JORDAN RAMOS at [facility] ENDOSCOPY Social History Tobacco Use [...] consented to blood products. Plan discussed with HOG TRADER and attending. Anesthesia Screening Note: Date and [...] is asymptomatic. Surveillance testing isnot recommended per [facility] guidelines. However, the patient did already [...] EST Office Visit Radiation Oncology at [address] [phone] Tyrese Fitzgerald MD [facility] [place] [address] documented as of this encounter Visit Diagnoses [...] 0810, Until Sat06/28/21 at 2356, Anesthesia Intra-op [facility] 06/28/2021 8:10 AM EST midazolam (pf) (Versed) [...] mg documented in this encounter Care Teams Smoke Chaser Relationship Specialty Start Date End Date Ilya Medina MD PCP - General 09/25/16 documented as of this encounter
--- OUTSIDE RECORDS SUMMARY | 2024-04-29 10:26 | XMS_ITS | Encounter Summary ---
Author Organization [facility] [place] [address] Care Team Providers Care Public Health Technologist Name Role Phone Ilya Medina MD Primary Care Provider [phone] Encounter Details Date Type Department Care Team (Late Contact Info) Description 06/20/2021 Orders Only [place] [phone] Nga Winter RN Cancer of temporal bone; [...] EST Office Visit Radiation Oncology at [address] [phone] Tyrese Fitzgerald MD [facility] [place] [address] documented as of this encounter Visit Diagnoses Diagnosis 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
--- OUTSIDE RECORDS SUMMARY | 2024-04-29 10:26 | XMS_ITS | Encounter Summary ---
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, except mandible Procedures NM PET CT Standard Plus Head and Neck Jayne Darby MD [facility] [place] [address] [facility] [place] [address] Referral ID Status Reason Start Date Expiration Date V isits Requested Visits Authorized [id number] Closed Specialty Service Requested 05/01/2021 10/28/2021 1 1 Reason for Visit * Diagnostic Test (Routine) - Closed Specialty Diagnoses / Procedures Referred By Contac t Referred To Contact Radiology Diagnoses 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, except mandible Procedures NM PET CT Standard Plus Head and Neck Jayne Darby MD [facility] [place] [address] [facility] [place] [address] Referral ID Status Reason Start Date Expiration Date V isits Requested Visits Authorized [id number] Closed Specialty Service Requested 05/01/2021 10/28/2021 1 1 Encounter Details Date Type Department Care Team (Latest Contact Info) Description 05/04/2021 12:27 PM EST Hospital Encounter Nuclear Medicine at [facility] [place] [address] Apolinar Hernández MD [facility] [place] [address] Malignant neoplasm of bones of [...] EST Office Visit Radiation Oncology at [address] [phone] Tyrese Fitzgerald MD [facility] [place] [address] documented as of this encounter [...] who have questions please contact the health intensive care unit nurse that requested your imaging first. ? Electronically signed by: Thong Rubio MD, [facility] ([phone]), at 05/04/2021 3:53 PM Narrative 05/04/2021 3:53 PM EST EXAMINATION: NM PET CT STANDARD PLUS HEAD AND NECK CLINICAL HISTORY: Head/neck cancer, staging History of SCCa in the LEFT Middle Ear. Evaluate for staging mets and occult mets in neck/parotid. TECHNIQUE: Following IV injection of 22-aktnap-3-deoxyglucose (FDG) a standard uptake of approximately 60 [...] in neck/parotid. TECHNIQUE: Following IV injection of 88-ivflnq-9-deoxyglucose (FDG) astandard uptake of approximately 60 minutes, [...] patients who have questions please contactthe health intensive care unit nurse that requested your imaging first. Electronically signed by: Thong Rubio MD, [facility]([phone]), at 05/04/2021 3:53 PM Apolinar Hernández MD IMG PET ORDERABLES documented [...] Arm documented in this encounter Care Teams Battery Technician Relationship Specialty Start Date End Date Ilya Medina MD PCP - General 09/25/16 documented as of this encounter
--- OUTSIDE RECORDS SUMMARY | 2024-04-29 10:26 | XMS_ITS | Encounter Summary ---
Author Organization [facility] Address [facility] [place] [address] Care Team Providers Care Preparing Box Tender Name Role Phone Ilya Medina MD Primary Care Provider [phone] Encounter Details Date Type Department Care Team (Latest Contact Info) Description 04/27/2021 10:00 AM EST Office Visit [place] [address] Apolinar Hernández MD [facility] [place] [address] Cancer of temporal bone; Chronic tubotympanic suppurative [...] Darby MD - 04/27/2021 10:00 AM EST [facility] Otolaryngology - Head and Neck Surgery Apolinar Hernández MD 04/27/21 10:42 PM [place] [id number] Office Patient Name: Suman Warner Date of [...] LEFT CWD mastoid cavity as well as apache tympanic membrane as discussed which was positive [...] - Head & Neck Surgery 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
--- OUTSIDE RECORDS SUMMARY | 2024-04-29 10:26 | XMS_ITS | Encounter Summary ---
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, except mandible Procedures NM PET CT Standard Plus Head and Neck Jayne Darby MD [facility] [place] [address] [place] [address] Referral ID Status Reason Start Date Expiration Date V isits Requested Visits Authorized [id number] Closed Specialty Service Requested 05/01/2021 10/28/2021 1 1 Encounter Details Date Type Department Care Team (Latest Contact Info) Description 05/04/2021 12:28 PM EST - 05/04/2021 11:59 PM [facility] Encounter [place] [address] Apolinar Hernández MD [facility] [place] [place] [address] Discharge Disposition: Home Social History [...] EST Office Visit Radiation Oncology at [address] [phone] Tyrese Fitzgerald MD [facility] [place] [address] documented as of this encounter Procedures Procedure Name Priority Date/Time Associated Diagnosis Comments NM PET CT STANDARD PLUS HEAD AND NECK Routine 05/04/2021 1:53 PM EST 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, except mandible POCT GLUCOSE Routine 05/04/2021 12:33 PM EST documented in this encounter Results * POCT Glucose (05/04/2021 12:33 PM EST) Glucose, POC 123 65 - 199 mg/dL [facility] Comment: Supplemental ranges: <140 mg/dL before meals <180 mg/dL all other times of the day Blood 05/04/2021 12:3 3 PM EST 05/04/2021 12:33 PM EST Apolinar Hernández MD POINT OF CARE TEST O RDERABLES [facility] [place] [address] documented in this encounter Visit Diagnoses Not on filedocumented in this encounter Care Teams Plate Gauger Relationship Specialty Start Date End Date Ilya Medina MD PCP - General 09/25/16 documented as of this encounter
--- OUTSIDE RECORDS SUMMARY | 2024-04-29 10:26 | XMS_ITS | Encounter Summary ---
Author Organization [facility] [place] [address] Care Team Providers Care Circular Saw Filer Name Role Phone Ilya Medina MD Primary Care Provider [phone] Encounter Details Date Type Department Care Team (Late st Contact Info) Description 05/02/2021 Telephone [place] [phone] Nga Winter RN Social History Tobacco Use [...] EST Office Visit Radiation Oncology at [address] [phone] Tyrese Fitzgerald MD [facility] [place] [address] documented as of this encounter Visit Diagnoses Not on filedocumented in this encounter Care Teams Circular Saw Filer Relationship Specialty Start Date End Date Ilya Medina MD PCP - General 09/25/16 documented as of this encounter
--- OUTSIDE RECORDS SUMMARY | 2024-04-29 10:26 | XMS_ITS | Encounter Summary ---
Author Organization [facility] [place] [address] Care Team Providers Care Rhit Name Role Phone Ilya Medina MD Primary Care Provider [phone] Reason for Visit * Auth/Cert Specialty Diagnoses [...] Expiration Date Visits Re quested Visits Authorized [id number] 1 1 Encounter Details Date Type Department Care Team (Late st Contact Info) Description 03/31/2021 8:39 AM EST Anesthesia Event [place] [phone] Hannah Proctor MD [facility] [place] [address] Joyce Miramontes CRNA Anesthesia Record Procedure Summary [...] 0802; metacarpal vein (top of hand), left; eumg-rnr-vxzbnz catheter system; 20 gauge; EUSEBIO Phan; 03/31/21; 1328 03/31/21 0802 by Arlene Arias APRN 03/31/21 1328 by Cayla Irizarry, RN ETT [...] cephalic vein (lateral side of arm), right; ecqz-ums-vryzmu catheter system; Anatomical Landmarks; 18 gauge; MD [...] Procedure Summary Date: 03/31/21 Room / Location: [facility] MAIN OR Anesthesia Start: 838 [...] All Anesthesia Providers: Anesthesiologist: Hannah Proctor MD IRRIGATION TAX ASSESSOR COLLECTOR: Joyce Miramontes CRNA Vitals Value Taken Time BP 166/101 03/31/21 1145 Temp 36 ??C (96.8 ??F) 03/31/21 1122 Pulse 66 03/31/21 1150 Resp 11 03/31/21 1150 SpO2 100 % 03/31/21 1150 Pain Level 0 03/31/21 1122 Vitals shown include unvalidated device data. Patient Location: PACU/[facility] Level of Consciousness: Conscious but Sleepy Pain [...] BX performed by Xiang Owen MD at [facility] ENDOSCOPY ??? PRO UPPER GI ENDOSCOPY, BIOPSY 03/20/2011 UPPER GASTROINTESTINAL ENDOSCOPY,WITH BIOPSY SINGLE OR MULTIPLE performed by JORDAN RAMOS at [facility] ENDOSCOPY Social History Tobacco Use [...] risks discussed with patient. Plan discussed with IRRIGATION TAX ASSESSOR COLLECTOR. Anesthesia Screening documented in this encounter Plan of Treatment Upcoming Encounters Date Type Department Care Team (Late st Contact Info) Description 04/29/2024 11:00 AM EST Office Visit Radiation Oncology at [address] [phone] Tyrese Fitzgerald MD [facility] [place] [address] documented as of this encounter Visit Diagnoses [...] mg documented in this encounter Care Teams Rhit Relationship Specialty Start Date End Date Ilya Medina MD PCP - General 09/25/16 documented as of this encounter
--- OUTSIDE RECORDS SUMMARY | 2024-04-29 10:26 | XMS_ITS | Encounter Summary ---
Author Organization [facility] [place] [address] Care Team Providers Care Linux System Administrator Name Role Phone Ilya Medina MD Primary Care Provider [phone] Encounter Details Date Type Department Care Team (Late st Contact Info) Description 04/20/2021 Notes [place] [address] Jayne Darby MD [facility] [place] [address] Social History Tobacco Use Types Packs/Day Years [...] EST Office Visit Radiation Oncology at [address] [phone] Tyrese Fitzgerald MD [facility] [place] [address] documented as of this encounter Visit Diagnoses Not on filedocumented in this encounter Care Teams Linux System Administrator Relationship Specialty Start Date End Date Ilya Medina MD PCP - General 09/25/16 documented as of this encounter
--- OUTSIDE RECORDS SUMMARY | 2024-04-29 10:26 | XMS_ITS | Encounter Summary ---
Author Organization [facility] [place] [address] Care Team Providers Care Excavating Machine Operator Name Role Phone Ilya Medina MD Primary Care Provider [phone] Encounter Details Date Type Department Care Team (Late Contact Info) Description 06/12/2021 Telephone Hematology [place] [address] Cuca Boo Social History Tobacco [...] - 06/12/2021 2:34 PM EST Community Health Mailer Apprentice LVM with Suman to return my call. I would like to chat with him about community resources. Cuca Boo documented in this encounter Plan of Treatment Upcoming Encounters Date Type Department Care Team (Late Contact Info) Description 04/29/2024 11:00 AM EST Office Visit Radiation Oncology at [address] [phone] Tyrese Fitzgerald MD [facility] [place] [address] documented as of this encounter Visit Diagnoses Not on filedocumented in this encounter Care Teams Excavating Machine Operator Relationship Specialty Start Date End Date Ilya Medina MD PCP - General 09/25/16 documented as of this encounter
--- OUTSIDE RECORDS SUMMARY | 2024-04-29 10:26 | XMS_ITS | Encounter Summary ---
[place] [address] Care Team Providers Care Breaker Operator Name Role Phone Ilya Medina MD Primary Care Provider Encounter Details Date Type Department Care Team (Late Contact Info) Description 06/01/2021 Patient Outreach [place] [phone] Estefany Quiñones RN Social History Tobacco Use [...] EST Office Visit Radiation Oncology at [address] [phone] Tyrese Fitzgerald MD [facility] [place] [address] documented as of this encounter Visit Diagnoses Not on filedocumented in this encounter Care Teams Breaker Operator Relationship Specialty Start Date End Date Ilya Medina MD PCP - General 09/25/16 documented as of this encounter
--- OUTSIDE RECORDS SUMMARY | 2024-04-29 10:26 | XMS_ITS | Encounter Summary ---
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, except mandible Procedures NM PET CT Standard Plus Head and Neck Jayne Darby MD [facility] [place] [address] [place] [address] Referral ID Status Reason Start Date Expiration Date V isits Requested Visits Authorized [id number] Closed Specialty Service Requested 05/01/2021 10/28/2021 1 1 Encounter Details Date Type Department Care Team (Latest Contact Info) Description 04/20/2021 Multidisciplinary Ca re [place] [address] Jayne Darby MD [facility] [place] [address] Malignant neoplasm of bones of [...] Head and Neck Tumor Board Note Site/Stage [id number] SCCa of the Middle Ear/Tympanic Membrane in [...] 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 ? 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 Evaluate for staging mets and occult mets in neck/parotid. 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 Evaluate for staging mets andoccult mets in neck/parotid. TECHNIQUE: Following IV injection of 53-ikdspo-1-deoxyglucose (FDG) astandard uptake of approximately 60 minutes, [...] who have questions please contactthe health care management specialist that requested your imaging first. 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
--- OUTSIDE RECORDS SUMMARY | 2024-04-29 10:26 | XMS_ITS | Encounter Summary ---
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 of Pathology, [place], [place] ASSESSMENT & RECOMMENDATIONS Suman Warner is a 65 y.o. 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
--- OUTSIDE RECORDS SUMMARY | 2024-04-29 10:26 | XMS_ITS | Encounter Summary ---
Author Organization [facility] [place] [address] Care Team Providers Care Fitness Trainer Name Role Phone Ilya Medina MD Primary Care Provider [phone] Encounter Details Date Type Department Care Team (Late st Contact Info) Description 04/03/2021 Telephone [place] [phone] Nga Winter RN Social History Tobacco Use [...] EST Office Visit Radiation Oncology at [address] [phone] Tyrese Fitzgerald MD [facility] [place] [address] documented as of this encounter Visit Diagnoses Not on filedocumented in this encounter Care Teams Fitness Trainer Relationship Specialty Start Date End Date Ilya Medina MD PCP - General 09/25/16 documented as of this encounter
--- OUTSIDE RECORDS SUMMARY | 2024-04-29 10:26 | XMS_ITS | Encounter Summary ---
[place] [address] Care Team Providers Care Reconditioner Name Role Phone Ilya Medina MD Primary Care Provider [phone] Encounter Details Date Type Department Care Team (Late st Contact Info) Description 05/31/2021 Telephone [place] [phone] Neetu Troncoso Social History Tobacco Use Types [...] EST Office Visit Radiation Oncology at [address] [phone] Tyrese Fitzgerald MD [facility] [place] [address] documented as of this encounter Visit Diagnoses Not on filedocumented in this encounter Care Teams Reconditioner Relationship Specialty Start Date End Date Ilya Medina MD PCP - General 09/25/16 documented as of this encounter
--- OUTSIDE RECORDS SUMMARY | 2024-04-29 10:26 | XMS_ITS | Encounter Summary ---
Author Organization [facility] Address [facility] [place] [address] Care Team Providers Care Boat Oar Maker Name Role Phone Ilya eMdina MD Primary Care Provider Encounter Details Date Type Department Care Team (Late st Contact Info) Description 06/20/2021 Telephone [place] [address] Laurita Wiggins Social History Tobacco [...] testing with patient. Ordering provider: Dr. Apolinar Hernández Testing Facility: [facility] Date of Testin06/26/2021 Time of Testing: TBD Symptoms: No Employee or Household Member of Employee No Healthcare Worker No documented in this encounter Plan of Treatment Upcoming Encounters Date Type Department Care Team (Late st Contact Info) Description 04/29/2024 11:00 AM EST Office Visit Radiation Oncology at [address] [phone] Tyrese Fitzgerald MD [facility] [place] [address] documented as of this encounter Visit Diagnoses Not on filedocumented in this encounter Care Teams Boat Oar Maker Relationship Specialty Start Date End Date Ilya Medina MD PCP - General 09/25/16 documented as of this encounter
--- OUTSIDE RECORDS SUMMARY | 2024-04-29 10:26 | XMS_ITS | Encounter Summary ---
[facility] [place] [address] Care Team Providers Care Pediatric Registered Nurse Name Role Phone Ilya Medina MD Primary Care Provider [phone] Encounter Details Date Type Department Care Team (Late st Contact Info) Description 05/10/2021 Patient Outreach Hematology [place] [address] Estefany Quiñones RN Social History Tobacco Use [...] currently owes. Recommend that I have our Manager Code or Community Healthcare Specialist reach out to [...] permits me to contact Dr. Price at [phone] to determine if clearance is granted and form is faxed. Placed call to Dr. Price's office and spoke to Edith. Dr. Price and his veterinarian assistant are currently onvacation. She will alert [...] EST Office Visit Radiation Oncology at [address] [phone] Tyrese Fitzgerald MD [facility] [place] [address] documented as of this encounter Visit Diagnoses Not on filedocumented in this encounter Care Teams Pediatric Registered Nurse Relationship Specialty Start Date End Date Ilya Medina MD PCP - General 09/25/16 documented as of this encounter
--- OUTSIDE RECORDS SUMMARY | 2024-04-29 10:26 | XMS_ITS | Encounter Summary ---
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 Procedures PRO RESECT TEMPORAL BONE, BOARD OF DIRECTORS APPRCH PRO MASTOIDECTOMY, COMPLETE PRG SOMATOSENSORY TEST, [...] Expiration Date Visits Re quested Visits Authorized [id number] 1 1 Encounter Details Date Type Department Care Team (Latest Contact Info) Description 06/28/2021 5:46 AM EST - 07/01/2021 1:38 PM [facility] Hospital Encounter [facility] [place] [address] Apolinar Hernández MD [facility] [place] [address] Malignant neoplasm of bones of skull and [...] for??Left modified radical CWD tymp/mastoid in 1968 (Boles) for cholesteatoma, Left revision tymp/mastoid-OCR 20 years ago, and Right modified radial CWD tymp/mast[place] [address] Linda.??Pathology??pertinent for SCCa diagnosedby Dr. Trinidad. [facility] pertinent for??HTN, HPL, SARITA, GERD, glaucoma, [...] please callthe Ophthalmology department right away at: [phone] You should call your doctor if you develop: -Increasing pain and redness -Increasing drainage from the wound -Fever > 38.5Celsius or 101 Fahrenheit -Bleeding Contact: -You can reach the ENT clinic at [phone] for appointment questions. -The ENT triage nurse is available at [phone] -For urgent issues during evenings (5 PM - 7 AM) and weekends the ENT resident talent acquisition specialist can be reached through the main hospital lacing operator at [phone] Follow Up: You will need to follow [...] 9:40 AM Apolinar Hernández MD [facility] at [facility] Arrive at: [facility] [phone] 08/04/2021 10:30 AM Apolinar Hernández MD Otolaryngology at [facility] Arrive at: [facility] [phone] 10/06/2021 11:30 AM Apolinar Hernández MD Otolaryngology at [facility] Arrive at: [facility] [phone] Future Orders Complete By Expires Referral to Home Health - at DISCHARGE [XYW1695 CPT(R)] As directed Process Instructions: Scheduling Instructions: Comments: DOCUMENTATION FOR VNA SERVICES (INCLUDING THOSE PATIENTS WITH MEDICARE COVERAGE REQUIRING HOME VNA SERVICES AND/OR HOSPICE SERVICES) PATIENT'S LOCATION: Suman Warner [address] [facility] [address] (home) Cell: Telephone Information: Carpentry Teacher's Name: Raven In discussion with the attending physician, it is certified that this patient is under their care and that they, or a Nurse Practitioner,Clinical Nurse specialist or Physician Sales Administration Manager who is working directly with them, [...] MAURO drain care. HOME HEALTH CARE AGENCY: [facility] PHONE: [phone] FAX: [phone] Start of care: Within 24 to 48 [...] [address] / [place] [id number] All A agencies which cover the area of patient's residence have been reviewed, either verbally maría writing, and patient/family have chosen the home health care agency noted Questions: Agency name and contact information: [facility] Patient location post discharge: home [facility] What services are requested: Registered Nurse [...] __ Primary Care Doctor: Ilya Medina MD [phone] Signed: Allegra Aldana MD 07/01/2021 documented in [...] please callthe Ophthalmology department right away at: [phone] You should call your doctor if you develop: -Increasing pain and redness -Increasing drainage from the wound -Fever > 38.5Celsius or 101 Fahrenheit -Bleeding Contact: -You can reach the ENT clinic at [phone] for appointment questions. -The ENT triage nurse is available at [phone] -For urgent issues during evenings (5 PM - 7 AM) and weekends the ENT resident talent acquisition specialist can be reached through the main hospital lacing operator at [phone] Follow Up: You will need to follow [...] 9:40 AM Apolinar Hernández MD Otolaryngology at [facility] Arrive at: [facility] [phone] 08/04/2021 10:30 AM Apolinar Hernández MD Otolaryngology at [facility] Arrive at: [facility] [phone] 10/06/2021 11:30 AM Apolinar Hernández MD Otolaryngology at [facility] Arrive at: [facility] [phone] Future Orders Complete By Expires Referral to Home Health - at DISCHARGE [[id number] CPT(R)] As directed Process Instructions: Scheduling Instructions: Comments: DOCUMENTATION FOR VNA SERVICES (INCLUDING THOSE PATIENTS WITH MEDICARE COVERAGE REQUIRING HOME VNA SERVICES AND/OR HOSPICE SERVICES) PATIENT'S LOCATION: Suman Warenr [address] [facility] [address] (home) Cell: Telephone Information: Carpentry Teacher's Name: Raven In discussion with the attending physician, it is certified that this patient is under their care and that they, or a Nurse Practitioner,Clinical Nurse specialist or Physician Sales Administration Manager who is working directly with them, [...] MAURO drain care. HOME HEALTH CARE AGENCY: [facility]. PHONE: [phone] FAX: [phone] Start of care: Within 24 to 48 [...] PCP: MD [address] / [facility] [address] All A agencies which cover the area of patient's residence have been reviewed, either verbally maría writing, and patient/family have chosen the home health care agency noted Questions: Agency name and contact information: [facility] Patient location post discharge: [facility] What services are requested: Registered Nurse Start [...] history (see PSH). 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 Home set-up: 2 level home Stairs: 4 steps with rail to enter, FOS w/ rail to 2nd level of home. Tub shower w/ grab bars. Baseline Mobility: Independent & working Precautions/Special Considerations: Keep head neutral , no turning head to Right. Ambulate every shift/AAT, up with assistance post-op, regular diet. NUNAKAUYARMIUT, hearing aide R ear. Corneal abrasion L [...] No further PT needs. Amb with mob financial services technician this afternoon and nursing over weekend. [...] for this consult. MAYTE BECKFORD, PT Pager: [phone] Physical Therapy Inpatient Rehabilitation Department Time IN [...] a 66 y.o. male with PMH of [id number] SCCa of the Left Middle Ear/Tympanic Membrane [...] PGY1 06/30/21 7:25 AM ENT Team Pager: [phone] Associated attestation - Apolinar Hernández MD - [...] Neurotology Otolaryngology - Head & Neck Surgery [facility] * Mayte Beckford, PT - 06/29/2021 12:10 [...] 0.54) performed by Apolinar Hernández MD at [facility] OR ??? PRG SOMATOSENSORY TEST, ANY/ALL PER. NERVES, TRUNK OR HEAD Left 06/28/2021 FACIAL NERVE MONITORING, SETUP PERIPHERAL (WRVU 0.54) performed by Apolinar Hernández MD at [facility] OR ??? PRO ADJ TISS TRANSFER/REARRANGEMENT ANY AREA 30.1-60 SQCM Left 06/28/2021 ADJACENT TISSUE TRANSFER OR REARRANGEMENT; 30.1 TO 60.0 SQ CM, HEAD/NECK (WRVU 12.65) performed by Jose D Hoang MD at [facility] OR ??? PRO COLONOSCOPY, BIOPSY 10/09/2012 COLONOSCOPY FLEXIBLE, WITH BX performed by Xiang Owen MD at [facility] ENDOSCOPY ??? PRO EXC PAROTD, TOTAL, DISSECT 5TH NERV Left 06/28/2021 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, TOTAL, WITH DISSECTION AND PRESERVATION OF FACIAL NERVE(WRVU 19.53) performed by Jose D Hoang MD at [facility] OR ??? PRO MASTOIDECTOMY, COMPLETE Left 06/28/2021 MASTOIDECTOMY, COMPLETE (WRVU 12.56) performed by Apolinar Hernández MD at [facility] OR ??? PRO MICROSURG TECHNIQUES, REQ OPER MICROSCOPE Left 03/31/2021 MICROSCOPE USE (WRVU 3.46) performed by Apolinar Hernández MD at [facility] OR ??? PRO MICROSURG TECHNIQUES, REQ OPER MICROSCOPE N/A 06/28/2021 MICROSCOPE USE (WRVU 3.46) performed by Apolinar Hernández MD at [facility] OR ? ? PRO MUSCLE MYOCUTANEOUS/FASCIOUCUTANEOUS FLAP HEAD&NECK W/NAMED VASC PEDCL Left 06/28/2021 FLAP, MYOCUTANEOUS OR FASCIOCUTANEOUS, HEAD & NECK W NAMED VASC PEDICLE performed by Jose D Hoang MD at [facility] OR ??? PRO REMOVAL NODES, NECK, CERV MOD RAD Left 06/28/2021 @CERVICAL LYMPHADENECTOMY (MODIFIED RADICAL NECK DISSECTION) (WRVU 23.95) performed by Jose D Hoang MD at [facility] OR ??? PRO RESECT TEMPORAL BONE, BOARD OF DIRECTORS APPRCH Left 06/28/2021 @RESECTION TEMPORAL BONE, EXTERNAL APPROACH (WRVU 37.42) performed by Apolinar Hernández MD at [facility] PRO ??? PRO TYMPANOPLASTY Left 03/31/2021 TYMPANOPLASTY (WRVU 10.05) performed by Apolinar Hernández MD at [facility] MAIN OR ??? PRO UPPER GI ENDOSCOPY, BIOPSY 03/20/2011 UPPER GASTROINTESTINAL ENDOSCOPY,WITH BIOPSY SINGLE OR MULTIPLE performed by JORDAN RAMOS at [facility] ENDOSCOPY Active Non-Hospital Problems Diagnosis ??? Viral warts ??? Diarrhea ??? Chilblains ??? Visit for suture removal ??? Nevus ??? Dizziness ??? GERD (gastroesophageal reflux disease) ??? Chronic serous otitis media ??? Dysplastic nevus ??? Atypical nevus ??? 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 Home set-up: 2 level home Stairs: 4 steps with rail to enter, FOS w/ rail to 2nd level of home. Tub shower w/ grab bars. Baseline Mobility: Independent & working Precautions/Special Considerations: Keep head neutral , no turning head to Right. Ambulate every shift/AAT, up with assistance post-op, regular diet. NUNAKAUYARMIUT, hearing aide R ear. Corneal abrasion L eye with tearing and report of blurred vision post-op, usually wears glasses/contact. Mobility and Positioning Recommendations: ?? Pt. should utilize CGA close supervision of staff for ambulation and transfers : with 5 [place] staff. ?? Please encourage up to chair [...] for this consult. MAYTE BECKFORD, PT Pager: [phone] Physical Therapy Inpatient Rehabilitation Department Time IN [...] a 66 y.o. male with PMH of [id number] SCCa of the Left Middle Ear/Tympanic Membrane [...] PGY1 06/29/21 7:52 AM ENT Team Pager: [phone] Associated attestation - Apolinar Hernández MD - [...] Neurotology Otolaryngology - Head & Neck Surgery [facility] * Ru Frazier MD - 06/29/2021 3:30 AM EST Images from the original note were not included. OTOLARYNGOLOGY - HEAD & NECK SURGERY POST OP CHECK Name: Suman Warner Age/Sex: 66 y.o. male Attending: Apolinar Hernández MD Hospital Day: 2 1 Day Post-Op Patient ID/Reason for Admission Suman Warner is a 66 y.o. male [id number]??SCCa of the??Left??Middle Ear/Tympanic Membrane??in the Hypotympanum Interval [...] PGY1 06/29/21 5:10 AM ENT Team Pager: [phone] * Gavi Padron RN - 06/28/2021 9:10 [...] scheduled operation. Jayne Darby MD, PGY5, Pager [phone] 06/28/21 6:39 AM ENT Team Pager: [phone] * Jayne Darby MD - 06/28/2021 6:38 [...] scheduled operation. Jayne Darby MD, PGY5, Pager [phone] 06/28/21 6:37 AM ENT Team Pager: [phone] Associated attestation - Apolinar Hernández MD - [...] Neurotology Otolaryngology - Head & Neck Surgery [facility] documented in this encounter Miscellaneous Notes * Initial Assessments - Maria D Reyes, ZACHARY - 07/01/2021 1:38 PM EST Occupational Therapy Treatment notes #2 Patient profile: Suman Warner is a 66 y.o. male admitted on 06/28/2021 with PMH of [id number]??SCCa of the??Left??Middle Ear/Tympanic Membrane??in the Hypotympanum who is s/p temporal bone resection, mastoidectomy, parotidectomy, left neck dissection and reconstruction with submental flap. Social History: Patient lives with his . 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 Sustained L corneal [...] Minutes, Occupational Therapy: 21 (1x theract) Pager: [phone] ZACHARY Orozco 07/01/2021 Occupational Therapy Rehabilitation Department [...] male admitted on 06/28/2021 with PMH of [id number]??SCCa of the??Left??Middle Ear/Tympanic Membrane??in the Hypotympanum who [...] 0.54) performed by Apolinar Hernández MD at [facility] MAIN OR ??? PRG SOMATOSENSORY TEST, ANY/ALL PER. NERVES, TRUNK OR HEAD Left 06/28/2021 FACIAL NERVE MONITORING, SETUP PERIPHERAL (WRVU 0.54) performed by Apolinar Hernández MD at [facility] OR ??? PRO ADJ TISS TRANSFER/REARRANGEMENT ANY AREA 30.1-60 SQCM Left 06/28/2021 ADJACENT TISSUE TRANSFER OR REARRANGEMENT; 30.1 TO 60.0 SQ CM, HEAD/NECK (WRVU 12.65) performed by Jose D Hoang MD at [facility] OR ??? PRO COLONOSCOPY, BIOPSY 10/09/2012 COLONOSCOPY FLEXIBLE, WITH BX performed by Xiang Owen MD at [facility] ENDOSCOPY ??? PRO EXC PAROTD, TOTAL, DISSECT 5TH NERV Left 06/28/2021 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, TOTAL, WITH DISSECTION AND PRESERVATION OF FACIAL NERVE(WRVU 19.53) performed by Jose D Hoang MD at [facility] OR ??? PRO MASTOIDECTOMY, COMPLETE Left 06/28/2021 MASTOIDECTOMY, COMPLETE (WRVU 12.56) performed by Apolinar Hernández MD at [facility] OR ??? PRO MICROSURG TECHNIQUES, REQ OPER MICROSCOPE Left 03/31/2021 MICROSCOPE USE (WRVU 3.46) performed by Apolinar Hernández MD at [facility] OR ??? PRO MICROSURG TECHNIQUES, REQ OPER MICROSCOPE N/A 06/28/2021 MICROSCOPE USE (WRVU 3.46) performed by Apolinar Hernández MD at [facility] OR ? ? PRO MUSCLE MYOCUTANEOUS/FASCIOUCUTANEOUS FLAP HEAD&NECK W/NAMED VASC PEDCL Left 06/28/2021 FLAP, MYOCUTANEOUS OR FASCIOCUTANEOUS, HEAD & NECK W NAMED VASC PEDICLE performed by Jose D Hoang MD at [facility] MAIN OR ??? PRO REMOVAL NODES, NECK, CERV MOD RAD Left 06/28/2021 @CERVICAL LYMPHADENECTOMY (MODIFIED RADICAL NECK DISSECTION) (WRVU 23.95) performed by Jose D Hoang MD at [facility] MAIN OR ??? PRO RESECT TEMPORAL BONE, BOARD OF DIRECTORS APPRCH Left 06/28/2021 @RESECTION TEMPORAL BONE, EXTERNAL APPROACH (WRVU 37.42) performed by Apolinar Hernández MD at [facility] PRO ??? PRO TYMPANOPLASTY Left 03/31/2021 TYMPANOPLASTY (WRVU 10.05) performed by Apolinar Hernández MD at [facility] MAIN OR ??? PRO UPPER GI ENDOSCOPY, BIOPSY 03/20/2011 UPPER GASTROINTESTINAL ENDOSCOPY,WITH BIOPSY SINGLE OR MULTIPLE performed by JORDAN RAMOS at [facility] ENDOSCOPY Social History: Patient lives with his . 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 Sustained L corneal [...] and measurable assessment of functional outcome. Pager: [phone] Zoe Barboza OT 06/29/2021 Occupational Therapy Rehabilitation Department * Initial Assessments - Phyllis Baez RN - 06/29/2021 8:55 AM EST Office of Care Management Initial Assessment Phyllis Baez RN reviewed record and discussed patient with Care Team. Source of Information: Team, bedside nurse, medical record, and Patient, Chart land degradation analyst CM Introduced self/reviewed role; services accepted. Reason for Hospitalization: Planned surgery Covid Vaccination Status: 1st, 2nd & booster (GrouPAY;also had PNA VAX this year) Last COVID [...] Home Address confirmed as: [address] [facility] [address] Social & Family Supports: All names listed [...] MEDICARE SUPPLEMENT Prescription Coverage: Yes Preferred Pharmacy: [facility] #[id number] AT [address] [address] Status: Patient is a : No Primary Care Provider: Ilya Medina MD [phone] Patient/Caregiver Goals of Treatment: return home with [...] care hand out. Patient requests referral to [facility] PHONE: [phone] FAX: [phone]. Expected date of discharge: 06/30/21. Referral routed to the [employer] for matching with agency/vendor and to provide [...] / pills okay. Agrees with referral to senior living from [facility]. will be transporting pt home; gave CM contact number and will continue to follow. A member of the Care Management team will continue to monitor progress, follow for continuity of care and assist with transition of care planning. Barbara Baez RN BSN Neurology Masking Machine OperatorMortgage Accounting Clerk of Care Management Pager [phone] * Brief Op Note - Caridad Sifuentes MD - 06/28/2021 11:27 PM EST Brief Operative Note Patient Name: Suman Warner : [id number] MR#: [id number] Case Date: 06/28/2021 Surgeon: Jose D Hoang MD Wise, Sean, MD Divakar, Prashanthi, MD Bell, Rebecca, MD Diagnosis: [id number] SCCa of the Left Middle Ear/Tympanic Membrane [...] Neurotology Otolaryngology - Head & Neck Surgery [facility] * Op Note - Jose D Hoang MD - 06/28/2021 9:10 AM EST [facility] Operative Note Patient Name: Suman Warner : [id number] MR#: [id number] Case Date: 06/28/2021 Surgeon: Jose D Hoang MD Divakar, Prashanthi, MD Bell, MD Caridad Diagnosis: [id number] SCCa of the Left Middle Ear/Tympanic Membrane [...] for Left modifiedradical CWD tymp/mastoid in 1968 (Boles) for cholesteatoma, Left revision tymp/mastoid-OCR 20 years [...] internal jugular vein and then using the Bakari scissors to circumferentially remove this dina tissue [...] close the ear was repaired to the [place] auricle with chromic sutures. 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 Postoperative diagnosis: [id number] SCCa of the Middle Ear/Tympanic Membrane in [...] Question Answer Comment Clinical History and Diagnosis: [id number] 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 Specimen Source: Left Neck Level 1B Specimen Type: excision Time specimen removed from patient: 8:39 PM Number of tissue samples (in container) 1 06/28/21203806/28/212024 Specimen to Pathology (Multiple Specimen to Pathology requests panel ) ONE TIME Comments: Left Perifacial Node Question Answer Comment Clinical History and Diagnosis: [id number] 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 No Biospecimen to store? 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 No Biospecimen to store? 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 No Biospecimen to store? 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 No Biospecimen to store? 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 No Biospecimen to store? 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 No Biospecimen to store? 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 Specimen Source: LEFT SUPERIOR MEDIAL MARGIN, ORIENTATION PER CARD Specimen Type: biopsy Time specimen removed from patient: 11:54 AM Number of tissue samples (in container) 1 06/28/21 1154 06/28/21 1125 Specimen to Pathology ONE TIME Comments: OR#[id number], [id number] Question Answer Comment Clinical History and Diagnosis: [id number] 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 Specimen Source: LEFT anterolateral canal margin Specimen Type: biopsy Time specimen removed from patient: 11:01 AM Number of tissue samples (in container) 1 06/28/21 1120 06/28/21 1100 Specimen to Pathology ONE TIME Comments: OR#[id number], ex:[id number] Question Answer Comment Clinical History and Diagnosis: [id number] SCCa of the Middle Ear/Tympanic Membrane in [...] radical canal wall down tympanomastoidectomy now with [id number] SCCa of the Middle Ear/Tympanic Membranein the [...] A devendra marcella was then used to greek the medial bony wall of the mesotympanum [...] EST Office Visit Radiation Oncology at [address] [phone] Tyrese Fitzgerald MD [facility] [place] [address] documented as of this encounter Procedures Procedure [...] Area, Defect 30.1 Sq Cm To 60.0 ([id number]) 06/28/2021 7:43 AM EST Malignant neoplasm of bones of skull and face, except mandible Exc Parotd, Total, Dissect 5Th Nerv ([id number]) 06/28/2021 7:43 AM EST Malignant neoplasm of bones of skull and face, except mandible Muscle Myocutaneous/Fascioucut aneous Flap Head&Neck W/Named Vasc Pedcl ([id number]) 06/28/2021 7:43 AM EST Malignant neoplasm of bones of skull and face, except mandible Cervical Lymphadectomy Modified Radical Neck Dissection ([id number]) 06/28/2021 7:43 AM EST Malignant neoplasm of bones of skull and face, except mandible Microsurg Techniques, Req Oper Microscope ([id number]) 06/28/2021 7:43 AM EST 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 Nerves, Trunk Or Head ([id number]) 06/28/2021 7:43 AM EST Malignant neoplasm of bones of skull and face, except mandible Mastoidectomy, Complete ([id number]) 06/28/2021 7:43 AM EST Malignant neoplasm of bones of skull and face, except mandible Resect Temporal Bone, End Worker Apprch ([id number]) 06/28/2021 7:43 AM EST Malignant neoplasm of [...] 12:40 AM EST) Neutrophil % 88.8 % [facility] Neutrophil Absolute 10.40(H) 1.70 - 6.10 x10(3)/mc L [facility] Lymph % 5.2 % [facility] Lymphocytes Abs 0.6(L) 0.9 - 3.2 x10(3)/mc L [facility] Monocyte % 5.6 % [facility] Monocyte Abs 0.6 0.3 - 0.9 x10(3)/[facility] Eos % 0.0 % [facility] Eosinophils Abs 0.0 0.0 - 0.4 x10(3)/[facility] Basophil % 0.1 % [facility] Baso Absolute 0.0 0.0 - 0.1 x10(3)/[facility] Immature Gran % 0.30 % [facility] Comment: Immature granulocytes(IG's)percentage and absolute count will include metamyelocytes, myelocytes, and promyelocytes. Blood smears from CBCs yielding IG's will be scanned manually for concordance. If this scan disagrees with the automated IG or if promyelocytes are noted, a manual differential will be performed. Immature Gran Absolute 0.03 0.00 - 0.04 x10(3)/[facility] Blood 06/29/2021 12:4 0 AM EST 06/29/2021 12:59 AM EST Narrative Resulting Agency Comment Spec In Lab Jayne Darby MD HEMATOLOGY ORDERAB LES Performing Organization Address City/State/[facility] Co de Phone Number [facility] [place] [address] * (ABNORMAL) Hemogram (06/29/2021 12:40 AM EST) White Blood Cell 11.7(H) 4.0 - 9.5 x10(3)/[facility] Red Blood Cell 4.40(L) 4.58 - 5.54 x10(6)/[facility] Hemoglobin 14.0 13.7 - 16.5 g/dL [facility] Hematocrit 40.6 40.5 - 48.5 % [facility] Mean Cell Volume 92.3 82.9 - 93.1 fL [facility] Mean Cell Hemoglobin 31.8 27.5 - 32.1 pg [facility] Mean Cell Hemoglobin Concentration 34.5 32.0 - 35.7 g/dL [facility] Platelet 164 145 - 357 x10(3)/mc L [facility] RDW Standard Deviation 44.2 36.0 - 45.0 fL [facility] RDW coefficient of variation 13.0 11.4 - 13.8 % [facility] Mean Platelet Volume 10.6 7.6 - 12.9 fL [facility] NRBC% auto 0.0 % [facility] NRBC Absolute 0.000 0.000 - 0.000 x10(3)/mc L [facility] Blood 06/29/2021 12:4 0 AM EST 06/29/2021 12:59 AM EST Narrative Resulting Agency Comment Spec In Lab Jayne Darby MD HEMATOLOGY ORDERAB LES Performing Organization Address City/State/[facility] Co de Phone Number [facility] [place] [address] * (ABNORMAL) Basic Metabolic Panel (non-fasting) (06/29/2021 12:40 AM EST) Glucose 175 65 - 199 mg/dL [facility] Comment:Diabetes: >=200 mg/d L plus symptoms Blood Urea Nitrogen 14 10 - 20 mg/dL [facility] Creatinine 1.01 0.80 - 1.50 mg/dL [facility] Sodium 138 135 - 145 mmol/L [facility] Potassium 4.4 3.5 - 5.0 mmol/L [facility] Comment: Please note: ??Patients with WBC >100,000 may have falsely elevated Potassium levels. ??For accurate Potassium quantification in these patients send serum separator tube (gold top) for subsequent determinations. ??Contact the Clinical Chemistry Laboratory if there are any questions. Chloride 103 98 - 107 mmol/L [facility] Carbon Dioxide 24 22 - 31 mmol/L [facility] Anion Gap 11 5 - 15 mmol/L [facility] Calcium 8.2(L) 8.5 - 10.5 mg/dL [facility] Est Glomerular Filtration Rate 78 >=60 mL/min/1. 73 m?? [facility] [...] Hernández MD CHEMISTRY ORDERABLES Performing Organization Address City/[facility]/ZIP Co de Phone Number [facility] [place] [address] * Specimen to Pathology (06/28/2021 8:39 PM EST) AP Specimen 06/28/2021 8:39 PM EST 06/28/2021 8:39 PM EST Narrative [facility] - 06/28/2021 8:39 PM EST Specimen requisition ordered. ??Separate Pathology report to follow Apolinar Hernández MD PATHOLOGY/CYTOLOGY O RDERABLES [facility] [place] [address] * Specimen to Pathology (06/28/2021 8:23 PM EST) AP Specimen 06/28/2021 8:23 PM EST 06/28/2021 8:23 PM EST Narrative [facility] - 06/28/2021 8:23 PM EST Specimen requisition ordered. ??Separate Pathology report to follow Apolinar Hernández MD PATHOLOGY/CYTOLOGY O ANA LUISA Performing Organization Address City/[facility]/ZIP Co de Phone Number [facility] [place] [address] * Specimen to Pathology (06/28/2021 6:22 PM EST) AP Specimen 06/28/2021 6:22 PM EST 06/28/2021 6:22 PM EST Narrative [facility] - 06/28/2021 6:22 PM EST Specimen requisition ordered. ??Separate Pathology report to follow Apolinar Hernández MD PATHOLOGY/CYTOLOGY O ANA LUISA Performing Organization Address [facility] [place] [address] * (ABNORMAL) BLOOD GAS 2 ARTERIAL (06/28/2021 5:46 PM EST) pH, Arterial 7.37 7.35 - 7.45 [facility] PCO2, Arterial 41 35 - 45 mmHg [facility] PO2, Arterial 145(H) 85 - 104 mmHg [facility] Bicarbonate, Arterial 23.4 20.0 - 26.0 mmol/L [facility] Base Excess, Arterial -1.9 -3.0 - 3.0 mmol/L [facility] Hgb Blood Gas 14.8 13.7 - 16.5 g/dL [facility] Oxyhemoglobin, Arterial 97.5(H) 94.0 - 97.0 % [facility] Carboxyhemoglob in, Arterial 1.0 % [facility] Comment: Nonsmokers: 0.5-1.5% COHB Smokers: Variable, but usually less than 10% Toxic: 20-30% COHB Lethal: Greater than 60% COHB Methemoglobin, Arterial 0.3 <=1.5 % [facility] Na Whole Blood 136 135 - 145 mmol/L [facility] K Whole Blood 4.1 3.5 - 5.0 mmol/L [facility] Comment: Please note: Patients with WBC >100,000 may have falsely elevated Potassium levels. Contact the Clinical Chemistry Laboratory if there are any questions. ICa Whole Blood 1.12(L) 1.15 - 1.33 mmol/L [facility] Comment: Note: ??Total bilirubin higher than 20 mg/dL may lead to falsely low ionized calcium. CL Whole Blood 106 98 - 107 mmol/L [facility] Gluc Whole Bld 177 65 - 199 mg/dL [facility] Comment:Diabetes: >=200 mg/d L plus symptoms. Lactate WB 2.4(H) 0.5 - 2.2 mmol/L [facility] FIO2 Art 43 % [facility] PF Ratio Art 337 [facility] Blood 06/28/2021 5:46 PM EST 06/28/2021 5:46 PM EST Apolinar Hernández MD POINT OF CARE TEST O RDERABLES Performing Organization Address [facility] Co de Phone Number [facility] [place] [address] * Specimen to Pathology (06/28/2021 5:40 PM EST) AP Specimen 06/28/2021 5:40 PM EST 06/28/2021 5:40 PM EST Narrative [facility] - 06/28/2021 5:40 PM EST Specimen requisition ordered. ??Separate Pathology report to follow Jose D Hoang MD PATHOLOGY/CYTOLOGY ORDERABLES Performing Organization Address [facility]/ZIP Co de Phone Number [facility] [place] [address] * Specimen to Pathology (06/28/2021 5:40 PM EST) AP Specimen 06/28/2021 5:40 PM EST 06/28/2021 5:40 PM EST Narrative [facility] - 06/28/2021 5:40 PM EST Specimen requisition ordered. ??Separate Pathology report to follow Jose D Hoang MD PATHOLOGY/CYTOLOGY ORDERABLES Performing Organization Address [facility] [place] [address] * Specimen to Pathology (06/28/2021 5:40 PM EST) AP Specimen 06/28/2021 5:40 PM EST 06/28/2021 5:40 PM EST Narrative [facility] - 06/28/2021 5:40 PM EST Specimen requisition ordered. ??Separate Pathology report to follow Jose D Hoang MD PATHOLOGY/CYTOLOGY ORDERABLES Performing Organization Address [facility] [place] [address] * Specimen to Pathology (06/28/2021 5:40 PM EST) AP Specimen 06/28/2021 5:40 PM EST 06/28/2021 5:40 PM EST Narrative [facility] - 06/28/2021 5:40 PM EST Specimen requisition ordered. ??Separate Pathology report to follow Jose D Hoang MD PATHOLOGY/CYTOLOGY ORDERABLES Performing Organization Address [facility] [place] [address] * Specimen to Pathology (06/28/2021 5:40 PM EST) AP Specimen 06/28/2021 5:40 PM EST 06/28/2021 5:40 PM EST Narrative [facility] - 06/28/2021 5:40 PM EST Specimen requisition ordered. ??Separate Pathology report to follow Jose D Hoang MD PATHOLOGY/CYTOLOGY ORDERABLES Performing Organization Address [facility] Co de Phone Number [facility] [place] [address] * Specimen to Pathology (06/28/2021 3:04 PM EST) AP Specimen 06/28/2021 3:04 PM EST 06/28/2021 3:04 PM EST Narrative [facility] - 06/28/2021 3:04 PM EST Specimen requisition ordered. ??Separate Pathology report to follow Apolinar Hernández MD PATHOLOGY/CYTOLOGY O ANA LUISA Performing Organization Address [facility]/[place] [address] * Specimen to Pathology (06/28/2021 12:54 PM EST) AP Specimen 06/28/2021 12:5 4 PM EST 06/28/2021 12:54 PM EST Narrative [facility] - 06/28/2021 12:54 PM EST Specimen requisition ordered. ??Separate Pathology report to follow Apolinar Hernández MD PATHOLOGY/CYTOLOGY O ANA LUISA Performing Organization Address [facility] [place] [address] * Specimen to Pathology (06/28/2021 12:54 PM EST) AP Specimen 06/28/2021 12:5 4 PM EST 06/28/2021 12:54 PM EST Narrative [facility] - 06/28/2021 12:54 PM EST Specimen requisition ordered. ??Separate Pathology report to follow Apolinar Hernández MD PATHOLOGY/CYTOLOGY O ANA LUISA Performing Organization Address City/[facility] [place] [address] * Specimen to Pathology (06/28/2021 12:41 PM EST) AP Specimen 06/28/2021 12:4 1 PM EST 06/28/2021 12:41 PM EST Narrative [facility] - 06/28/2021 12:41 PM EST Specimen requisition ordered. ??Separate Pathology report to follow Apolinar Hernández MD PATHOLOGY/CYTOLOGY O RDERABLES Performing Organization Address City/[facility]/ZIP Co de Phone Number [facility] [place] [address] * Specimen to Pathology (06/28/2021 11:54 AM EST) AP Specimen 06/28/2021 11:5 4 AM EST 06/28/2021 11:54 AM EST Narrative [facility] - 06/28/2021 11:54 AM EST Specimen requisition ordered. ??Separate Pathology report to follow Apolinar Hernández MD PATHOLOGY/CYTOLOGY O ANA LUISA Performing Organization Address [facility] [place] [address] * Specimen to Pathology (06/28/2021 11:20 AM EST) AP Specimen 06/28/2021 11:2 0 AM EST 06/28/2021 11:20 AM EST Narrative [facility] - 06/28/2021 11:20 AM EST Specimen requisition ordered. ??Separate Pathology report to follow Apolinar Hernández MD PATHOLOGY/CYTOLOGY O ANA LUISA Performing Organization Address [facility] Co de Phone Number [facility] [place] [address] * Specimen to Pathology (06/28/2021 10:58 AM EST) AP Specimen 06/28/2021 10:5 8 AM EST 06/28/2021 10:58 AM EST Narrative [facility] - 06/28/2021 10:58 AM EST Specimen requisition ordered. ??Separate Pathology report to follow Apolinar Hernández MD PATHOLOGY/CYTOLOGY O ANA LUISA Performing Organization Address [facility] [place] [address] * Surgical Pathology Report (06/28/2021 10:51 AM EST) Final Diagnosis [id number] ? Location: [facility]; N521; A The signing pathologist has (i) [...] Shultz Verified: ??07/05/2021 12:00 ??Pathologist Performed at: ??-[facility] Dept. [place], [place], [place] DISCUSSION It is difficult to assign an AJCC pathologic stage due to the inability to assess largest tumor dimension. No ?? perineural or lymphovascular invasion is recognized. Clinical/surgical correlation is needed to determine final margin status with regard to separately submitted involved specimens. 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 Sections/Processi ng: Caustics Loader sections in 5 cassettes as follows: ?H1: [...] 0.6 cm in greatest dimension. Sections/Processi ng: Caustics Loader sections in 8 cassettes as follows: ?K1-K2: [...] larger nodule is inked black Sections/Processi ng: Caustics Loader sections in 3 cassettes as follows: ?L1-L2: ??Caustics Loader sections of larger nodule ?L3: ??Detached nodules [...] and reviewed with Dr. Ireland Sections/Processi ng: Caustics Loader sections in 8 cassettes as follows: ?M1: ??Caustics Loader section from slice I to include superior-orange inked margin ? as well as medial-red lateral-yellow inked margins, perpendicular slices ?M2: ??Caustics Loader section from slice III, to include posterior-black, medial- ?red, and lateral-yellow margins ?M3: ??Caustics Loader section from slice from V to include blue-anterior, red- ?medial, and yellow-lateral inked margins ?M4: ??Caustics Loader sections from slice VII to include black-posterior, medial- ?red, and lateral-yellow margins ?M5: ??Caustics Loader section of vaguely nodular area from slice VII to include ? medial-red and anterior-blue inked margins ?M6: ??Caustics Loader section of vaguely nodular area with hemorrhage from slice IX ? to include medial-red, lateral-yellow, and posterior-black margins ?M7: ??Caustics Loader sections from slice X to include green-inked inferior, red- ?lateral, and yellow-medial inked margins ?M8: ??Caustics Loader section of loosely adherent nodule from slice x N - Labeled/Fixative: Left perifacial node, fresh. Quantity/Size: Single, 2.7 x 2.0 x 1.0 cm. Tissue Description: Adipose tissue with two lymph nodes, up to 2.0 x 1.0 x 0.9 cm in greatest dimension. Sections/Processi ng: Caustics Loader sections in 4 cassettes as follows: ?N1-N3: [...] cm piece of cauterized muscle Sections/Processi ng: Caustics Loader sections in 11 cassettes as follows: ?O1: ??Largest lymph node submitted in toto ?O2: ??Four lymph node candidates submitted in toto ?O3-O9: ??Remaining adipose submitted entirely ?O10: ??Caustics Loader section of skeletal muscle ?O11: ??Caustics Loader section of salivary gland ??SAS ?Frozen Section FROZEN SECTION DIAGNOSIS GFS1 - Left tissue at round window, biopsy, ?for frozen section: - Negative for malignancy. . FROZEN SECTION DIAGNOSIS 06/28/21 15:26 / DAK Electronically signed by: ?Racquel Ireland MD Verified: ??06/28/2021 15:27 ??Pathologist Performed at: ??-[facility] Dept. of [place]ology, [place], [place] This intraoperative consultation should be interpreted as a preliminary diagnosis pending review of the entire specimen and special studies, if any. A final Surgical Pathology report will follow this preliminary Frozen Section report(s). 07/05/2021 12:00 PM EST [facility] LYMPH NODE SPECIMEN / [...] EST Jose D Hoang MD PATHOLOGY/[place] [address] documented in this encounter Visit Diagnoses Diagnosis [...] PRN, Starting on Sat06/29/21 at 0156, Until [facility] 07/01/21 at 1539, Dry Eyes, Routine [...] 2 mg, Oral, DAILY, First dose on [facility] 06/29/21 at 0900, Until Discontinued, Do not [...] 20 mg, Oral, DAILY, First dose on [facility] 06/29/21 at 0900, Until Discontinued Given 07/01/2021 8:58 AM EST 20 mg Given 06/30/2021 8:36 AM EST 20 mg Given 06/29/2021 8:33 AM EST 20 mg pantothenic Ac-Min Oil-Pet,Hyd (Aquaphor) 41 % ointment 1 each 1 each, Topical (Top), 2 TIMES DAILY, First dose on [facility] 06/29/21 at 0245, Until Discontinued, Clean incision [...] 0.4 mg, Oral, DAILY, First dose on Ylndsay 06/29/21 at 0900, Until Discontinued, DO NOT [...] RN)2100 (Given - Provider: Olivia Mcgowan, EUSEBIO) 0856 (Given - Provider: Rachel Hernandez [...] 17 g, Oral, DAILY PRN, Starting on Ylndsay 06/29/21 at 0156, Until 07/01/21 at 1539, [...] Routine documented in this encounter Care Teams Mortuary Beautician Relationship Specialty Start Date End Date Ilya Medina MD PCP - General 09/25/16 documented as of this encounter
--- OUTSIDE RECORDS SUMMARY | 2024-04-29 10:27 | XMS_ITS | Encounter Summary ---
Author Organization [facility] [place] [address] Care Team Providers Care Car Blocker Name Role Phone Ilya Barrera MD Primary Care Provider Reason for Visit * Reason Onset Date Comments Irritable Bowel Syndrome 01/28/2013 diarrhe a Encounter Details Date Type Department Care Team (Late st Contact Info) Description 01/28/2013 [place]phone [place] [phone] Skye Ramirez RN Irritable Bowel Syndrome (diarrhea) [...] pt and see how plan is working. [place]/bx normal. documented in this encounter Plan of Treatment Upcoming Encounters Date Type Department Care Team (Late st Contact Info) Description 04/29/2024 11:00 AM EST Office Visit Radiation Oncology at [address] [phone] Tyrese Fitzgerald MD [facility] DR [place] [address] documented as of this encounter Visit Diagnoses Not on filedocumented in this encounter Care Teams Car Blocker Relationship Specialty Start Date End Date Ilya Barrera MD PCP - General 08/26/12 05/10/14 documented as of this encounter
--- OUTSIDE RECORDS SUMMARY | 2024-04-29 10:27 | XMS_ITS | Encounter Summary ---
Author Organization [facility] Address [facility] [place] [address] Care Team Providers Care Fruit Harvest Worker Name Role Phone Ilya Barrera MD Primary Care Provider [phone] Reason for Referral * Consultation (Urgent) - Closed Specialty Diagnoses / Procedures Referred By Contac t Referred To Contact Gastroenterology Diagnoses GERD (gastroesophageal reflux disease) Laryngospasm Arnaud Linda MD [facility] [place] [address] [facility] [place] [address] [place] [address] Referral ID Status Reason Start Date Expiration Date V isits Requested Visits Authorized [id number] Closed Assume Subset of Care 02/13/2011 08/12/2011 1 1 Reason for Visit * Reason Comments Follow-up Encounter Details Date Type Department Care Team (Late st Contact Info) Description 02/13/2011 9:30 AM EDT [place] [phone] Arnaud Linda MD [facility] [place] [address] GERD (gastroesophageal reflux disease) (Primary Dx); Laryngospasm [...] Progress Notes * Arnaud Linda MD - 02/13/2011 10:04 AM EDT [...] EST Office Visit Radiation Oncology at [address] [phone] Tyrese Fitzgerald MD [facility] [place] [address] Scheduled Referrals Name Type Priority Associated Diagnoses Order Schedule REFERRAL TO GASTROENTEROLOGY Outpatient Referral Routine GERD (gastroesophageal reflux disease) Laryngospasm Ordered: 02/13/2011 documented as of this encounter Visit Diagnoses Diagnosis GERD (gastroesophageal reflux disease)- Primary Esophageal reflux Laryngospasm Laryngeal spasm documented in this encounter Care Teams Fruit Harvest Worker Relationship Specialty Start Date End Date Ilya Barrera MD PCP - General 04/04/10 08/25/12 documented as of this encounter
--- OUTSIDE RECORDS SUMMARY | 2024-04-29 10:27 | XMS_ITS | Encounter Summary ---
[place] [address] Care Team Providers Care Securities Consultant Name Role Phone Ilya Medina MD Primary Care Provider [phone] Reason for Referral * Diagnostic Test (Routine) - Closed Specialty Diagnoses / Procedures Referred By Contac t Referred To Contact Radiology Diagnoses Primary malignant neoplasm of temporal bone Procedures CT Neck Soft Tissue w Contrast (Generic) Apolinar Hernández MD [facility] [place] [address] [facility] [place] [address] Referral ID Status Reason Start Date Expiration Date V isits Requested Visits Authorized [id number] Closed Specialty Service Requested 02/08/2021 08/08/2022 1 1 * Diagnostic Test (Routine) - Denied Specialty Diagnoses / Procedures Referred By Contac t Referred To Contact Radiology Diagnoses Primary malignant neoplasm of temporal bone Procedures CT Temporal Bone wo Contrast (Generic) Apolinar Hernández MD [facility] [place] [address] [facility] [place] [address] Referral ID Status Reason Start Date Expiration Date V isits Requested Visits Authorized [id number] Denied Specialty Service Requested 03/08/2021 09/04/2021 1 0 Reason for Visit * Diagnostic Test (Routine) - Closed Specialty Diagnoses / Procedures Referred By Contac t Referred To Contact Radiology Diagnoses Primary malignant neoplasm of temporal bone Procedures CT Neck Soft Tissue w Contrast (Generic) Apolinar Hernández MD [facility] [place]ARY[place] [address] [facility] [place] [address] Referral ID Status Reason Start Date Expiration Date V isits Requested Visits Authorized [id number] Closed Specialty Service Requested 02/08/2021 08/08/2022 1 1 Encounter Details Date Type Department Care Team (Latest Contact Info) Description 02/23/2021 7:37 AM EDT - 02/23/2021 11:59 PM EDT Hospital [place] [address] Apolinar Hernández MD [facility] [place]ARY[place] [address] Primary malignant neoplasm of temporal [...] EST Office Visit Radiation Oncology at [address] [address] Tyrese Fitzgerald MD [facility] DR RADIATION [place] [address] documented as of this encounter Procedures Procedure [...] coordinator that requested your imaging first. ? Narrative [...] care coordinator that requested your imaging first. Apolinar Hernández [...] coordinator that requested your imaging first. ? Narrative [...] care coordinator that requested your imaging first. Apolinar Hernández [...] mLs documented in this encounter Care Teams Securities Consultant Relationship Specialty Start Date End Date Ilya Medina MD PCP - General 09/25/16 documented as of this encounter
--- OUTSIDE RECORDS SUMMARY | 2024-04-29 10:27 | XMS_ITS | Encounter Summary ---
[place] [address] Care Team Providers Care Chief Operator Reformer Name Role Phone Ilya Barrera MD Primary Care Provider [phone] Reason for Visit * Reason Comments Skin Check Encounter Details Date Type Department Care Team (Late st Contact Info) Description 09/24/2011 9:00 AM EDT Office Visit Dermatology [address] [facility] [address] [place], [place] [address] Enoc Vázquez MD [address] [facility] A [place]MAT[place] [address] Nevus (Primary Dx) Social History Tobacco Use [...] EST Office Visit Radiation Oncology at [address] [address] Tyrese Fitzgerald MD [facility] [place] [address] documented as of this encounter Visit Diagnoses Diagnosis Nevus- Primary Benign neoplasm of skin, site unspecified documented in this encounter Care Teams Chief Operator Reformer Relationship Specialty Start Date End Date Ilya Barrera MD PCP - General 04/04/10 08/25/12 documented as of this encounter
--- OUTSIDE RECORDS SUMMARY | 2024-04-29 10:27 | XMS_ITS | Encounter Summary ---
Author Organization [facility]ly [facility] Address [facility] [place] [address] Care Team Providers Care Parts Specialist Name Role Phone Ilya Barrera MD Primary Care Provider Encounter Details Date Type Department Care Team (Latest Contact Info) Description 10/09/2012 1:25 PM EDT - 10/09/2012 3:45 PM EDT Hospital Encounter [place] [address] Arvind Vaca MD [facility] [place] [address] Rubin Owen MD [facility] [place] [address] Diarrhea Discharge Disposition: Home Social History Tobacco [...] occurs, please contact your MD. Please call [phone] before 5pm with problems, questions or concerns. After 5pm call [phone] and ask to speak with the bdc manager consulting application engineer. Discharge instructions reviewed with patient who [...] you need to be checked. Saturday-Saturday Clinic [phone] 8a-5p Same Day Endo [phone] 7a-8p Otherwise contact [phone] and ask to speak to the bdc manager consulting application engineer Follow up care is a mims [...] EST Office Visit Radiation Oncology at [address] [address] Tyrese Fitzgerald MD [facility] [place] [address] documented as of this encounter Procedures Procedure [...] 2:55 PM EDT) Surgical Pathology Report ? [facility] ? Provider: ?? RUBIN OWEN ?Pt. Name: ?? SUMAN WARNER ? Acc #: ?[id number] ?Pt. ? Col Date: ?? 10/09/2012 ? [...] PATHOLOGY/CYTOLOGY O ANA LUISA Performing Organization Address [facility] de Phone Number [place]KE [place] * Specimen to Pathology (surgical or derm) (10/09/2012 2:55 PM EDT) AP Specimen 10/09/2012 2:55 PM EDT 10/09/2012 2:55 PM EDT Narrative LUKE LAIUM - 10/09/2012 2:55 PM EDT Specimen requisition ordered. ??Separate Pathology report to follow Rubin Owen MD PATHOLOGY/CYTOLOGY O ANA LUISA Performing Organization Address [facility] de Phone Number [place] * Specimen to Pathology (surgical or derm) (10/09/2012 2:55 PM EDT) AP Specimen 10/09/2012 2:55 PM EDT 10/09/2012 2:55 PM EDT Narrative LUKE LAIUM - 10/09/2012 2:55 PM EDT Specimen requisition ordered. ??Separate Pathology report to follow Rubin Owen MD PATHOLOGY/CYTOLOGY O RDERABLES [place] [place] * COLONOSCOPY (10/09/2012 1:56 PM EDT) Pathologist [facility] COLONOSCOPY [facility] Endoscopy Patient Name: Suman Warner ? Procedure Date: 10/09/2012 1:56 PM ? Date of : 1955 ? Age: 57 ? Order #: [id number] ? Procedure: ? Colonoscopy Indications: ? Chronic diarrhea Providers: ? Rubin Owen MD, Connie Modi, ? RN, Neelima Nixon, Door Paneler Referring MD: ?Ilya Barrera MD, Adarsh Page [...] RN) documented in this encounter Care Teams Parts Specialist Relationship Specialty Start Date End Date Ilya Barrera MD PCP - General 08/26/12 05/10/14 documented as of this encounter
--- OUTSIDE RECORDS SUMMARY | 2024-04-29 10:27 | XMS_ITS | Encounter Summary ---
[place] [address] Care Team Providers Care Human Resources Executive Name Role Phone Ilya Barrera MD Primary Care Provider Reason for Visit * Reason Onset Date Comments Results 04/30/2011 Encounter Details Date Type Department Care Team (Late st Contact Info) Description 04/30/2011 Telephone [place] [phone] Daiana Esqueda RN Results Social History Tobacco [...] EST Office Visit Radiation Oncology at [address] [address] Tyrese Fitzgerald MD [facility] [place] [address] documented as of this encounter Visit Diagnoses Not on filedocumented in this encounter Care Teams Human Resources Executive Relationship Specialty Start Date End Date Ilya Barrera MD PCP - General 04/04/10 08/25/12 documented as of this encounter
--- OUTSIDE RECORDS SUMMARY | 2024-04-29 10:27 | XMS_ITS | Encounter Summary ---
[place] [address] Care Team Providers Care Insurance Counsel Name Role Phone Ilya Medina MD Primary Care Provider [phone] Encounter Details Date Type Department Care Team (Late Contact Info) Description 03/01/2021 Telephone [place] [phone] Nga Winter RN Social History Tobacco Use [...] EST Office Visit Radiation Oncology at [address] [address] Tyrese Fitzgerald MD [facility] [place] [address] documented as of this encounter Visit Diagnoses Not on filedocumented in this encounter Care Teams Insurance Counsel Relationship Specialty Start Date End Date Ilya Medina MD PCP - General 09/25/16 documented as of this encounter
--- OUTSIDE RECORDS SUMMARY | 2024-04-29 10:27 | XMS_ITS | Encounter Summary ---
Author Organization [facility] [place] [place] [address] Care Team Providers Care Concrete Float Maker Name Role Phone Ilya Barrera MD Primary Care Provider Encounter Details Date Type Department Care Team (Late st Contact Info) Description 10/21/2012 Tele[place] [address] Keshia Esqueda RN Social History Tobacco Use [...] See my note Labs ttg, tsh normal [place] path did not reveal colitis. TA polyp, [...] EST Office Visit Radiation Oncology at [address] [address] Tyrese Fitzgerald MD [facility] [place] [address] documented as of this encounter Visit Diagnoses Not on filedocumented in this encounter Care Teams Concrete Float Maker Relationship Specialty Start Date End Date Ilya Barrera MD PCP - General 08/26/12 05/10/14 documented as of this encounter
--- OUTSIDE RECORDS SUMMARY | 2024-04-29 10:27 | XMS_ITS | Encounter Summary ---
Author Organization [facility] [place] [address] Care Team Providers Care Material Control Supervisor Name Role Phone Ilya Medina MD Primary Care Provider [phone] Encounter Details Date Type Department Care Team (Latest Contact Info) Description 02/10/2021 3:26 PM EDT - 02/10/2021 11:59 PM EDT Hospital [place] [phone] Discharge Disposition: Home Social History Tobacco Use [...] EST Office Visit Radiation Oncology at [address] [address] Tyrese Fitzgerald MD [facility] [place] [address] documented as of this encounter Procedures Procedure Name Priority Date/Time Associated Diagnosis Comments SURGICAL PATHOLOGY REPORT Routine 02/10/2021 3:28 PM EDT documented in this encounter Results * Surgical Pathology Report (02/10/2021 3:28 PM EDT) Final Diagnosis [id number] ? Location: OPW The signing pathologist has (i) examined the relevant preparation(s) for the specimen(s) and (ii) rendered or confirmed the diagnosis(es). . ?Surgical Pathology DIAGNOSIS CONSULTATION CASE Outside slide(s) labeled [id number], collection date 02/01/2021. 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 ??(see Discussion.) Electronically signed by: ?MD Mirza, Anthonyandrei Shultz Verified: ??02/17/2021 8:51 ?? Pathologist Performed at: ??-[facility] Dept. of Pathology, [place], [place] DISCUSSION Tangential sectioning and small sample size limit assessment for depth of invasion. ADDITIONAL STUDIES Whole slide scan: outside medical sales representative slide(s) SPECIMEN(S) SUBMITTED CONSULTATION CASE A - 1 slide(s) labeled [id number], collection date 02/01/2021. [id number] Report to: [facility] Surgical Pathology Department [facility], [facility], 2nd Floor [address], [place] ??[address] CLINICAL INFORMATION n/a SPECIMEN PROCESSING [facility] ([facility]) pathology slide(s) are reviewed. ??Refer to Diagnosis and Specimen Submitted for specific case information. For the full text of the [facility] report(s) please refer to Non- Documentation Pathology in the electronic health record (eDH). 02/17/2021 8:51 AM EDT [facility] Consult Case 02/10/2021 3:28 PM EDT 02/10/2021 3:28 PM EDT Apolinar Hernández MD PATHOLOGY/CYTOLOGY O RDERABLES [facility] [place] [place] [address] documented in this encounter Visit Diagnoses Not on filedocumented in this encounter Care Teams Material Control Supervisor Relationship Specialty Start Date End Date Ilya Medina MD PCP - General 09/25/16 documented as of this encounter
--- OUTSIDE RECORDS SUMMARY | 2024-04-29 10:27 | XMS_ITS | Encounter Summary ---
Author Organization [facility] [place] [address] Care Team Providers Care Actuarial Clerk Name Role Phone Ilya Medina MD Primary Care Provider [phone] Encounter Details Date Type Department Care Team (Late st Contact Info) Description 02/23/2021 9:30 AM EDT Office Visit Audiology at [address] [address] Marci Rodrigues AUD [facility] [place] [address] Mixed hearing loss, bilateral Social History Tobacco [...] findings, impressions and recommendations. Elena Neff Clinical [place] [address] [phone] (fax) documented in this encounter Plan of Treatment Upcoming Encounters Date Type Department Care Team (Late st Contact Info) Description 04/29/2024 11:00 AM EST Office Visit Radiation Oncology at [address] [phone] Tyrese Fitzgerald MD [facility] [place] [address] documented as of this encounter Procedures Procedure [...] bilateral documented in this encounter Care Teams Actuarial Clerk Relationship Specialty Start Date End Date Ilya Medina MD PCP - General 09/25/16 documented as of this encounter
--- OUTSIDE RECORDS SUMMARY | 2024-04-29 10:27 | XMS_ITS | Encounter Summary ---
[place] [address] Care Team Providers Care Boot Trimmer Name Role Phone Ilya Barrera MD Primary Care Provider [phone] Reason for Visit * Reason Comments Suture / Staple Removal Encounter Details Date Type Department Care Team (Late st Contact Info) Description 10/16/2011 11:00 AM EDT Office Visit Dermatology [facility] [address] [place] [address] Enoc Vázquez MD [address] [facility] [place] [address] Visit for suture removal (Primary Dx) Social [...] in situ on the right lateral neck. [id number] reminder in six months. documented in this encounter Plan of Treatment Upcoming Encounters Date Type Department Care Team (Late st Contact Info) Description 04/29/2024 11:00 AM EST Office Visit Radiation Oncology at [address] [address] Tyrese Fitzgerald MD [facility] [place] [address] documented as of this encounter Visit Diagnoses Diagnosis Visit for suture removal- Primary Encounter for removal of sutures documented in this encounter Care Teams Boot Trimmer Relationship Specialty Start Date End Date Ilya Barrera MD PCP - General 04/04/10 08/25/12 documented as of this encounter
--- OUTSIDE RECORDS SUMMARY | 2024-04-29 10:27 | XMS_ITS | Encounter Summary ---
Author Organization [facility] [place] [address] Care Team Providers Care Machine Compositor Name Role Phone Lawson Hankins MD Primary Care Provider [phone] Encounter Details Date Type Department Care Team (Late Contact Info) Description 06/13/2016 Telephone [place] [phone] Anuradha Brown Social History Tobacco Use Types [...] EST Office Visit Radiation Oncology at [address] [address] Tyrese Fitzgerald MD [facility] [place] [address] documented as of this encounter Visit Diagnoses Not on filedocumented in this encounter Care Teams Machine Compositor Relationship Specialty Start Date End Date Lawson Hankins MD [facility] [address] [place] [address] PCP - General 05/11/14 09/24/16 documented as of this encounter
--- OUTSIDE RECORDS SUMMARY | 2024-04-29 10:27 | XMS_ITS | Encounter Summary ---
Author Organization [facility] Address [facility] [place] [address] Care Team Providers Care Senior Information Security Architect Name Role Phone Iyla Barrera MD Primary Care Provider [phone] Encounter Details Date Type Department Care Team (Latest Contact Info) Description 02/08/2011 7:50 AM EDT - 02/08/2011 11:59 PM EDT Hospital Encounter XRay at [address] [place] [address] CLINIC, Arnaud [place] MD [facility] [place] [address] Dysphagia Discharge Disposition: Home Social History Tobacco [...] EST Office Visit Radiation Oncology at [address] [address] Tyrese Fitzgerald MD [facility] [place] [address] documented as of this encounter Procedures Procedure [...] unspecified documented in this encounter Care Teams Senior Information Security Architect Relationship Specialty Start Date End Date Ilya Barrera MD PCP - General 04/04/10 08/25/12 documented as of this encounter
--- OUTSIDE RECORDS SUMMARY | 2024-04-29 10:27 | XMS_ITS | Encounter Summary ---
Author Organization [facility] [place] [address] Care Team Providers Care Rail Bender Name Role Phone Ilya Barrera MD Primary Care Provider [phone] Reason for Visit * Reason Comments GI Problem Encounter Details Date Type Department Care Team (Late st Contact Info) Description 09/30/2012 2:00 PM EDT Office Visit [place]astro[place] [address] Adarsh Page APRN [facility] [place] [address] Diarrhea (Primary Dx) Discharge Disposition: Home Social [...] PM EDT Section of Gastroenterology and Hepatology [address] [place], [place] [phone] .Suman Warner : 1955 Patient is here [...] 20 pounds. Back on diet. Diet: Breakfast: portuguese muffin with honey, nestle quick milk, yogurt, [...] with Aciphex 20mg qd. Upper endoscopy 2010, [facility] [place], 3cm hiatal hernia, otherwise normal exam. No [...] medical problems described above. Sincerely, Adarsh Page [employer] Section of Gastroenterology and Hepatology documented in this encounter Miscellaneous Notes * Addendum Note - Laurita Almendarez - 09/30/2012 3:14 PM EDTAddended by: LAURITA ALMENDAREZ on: 09/30/2012 03:14 PM Modules accepted: Orders documented in this encounter Plan of Treatment Upcoming Encounters Date Type Department Care Team (Late st Contact Info) Description 04/29/2024 11:00 AM EST Office Visit Radiation Oncology at [address] [address] Tyrese Fitzgerald MD [facility] [place] [address] documented as of this encounter Procedures Procedure [...] Lab Arvind Vaca MD CHEMISTRY ORDERABLES [facility] * Tissue transglutaminase, IgA (09/30/2012 3:17 PM EDT) TTG IgA Ab <4.0 <=3.9 u/ml [facility] Comment: Result Interpretation: Negative: ?<4 U/mL Weak Positive: ??4-10 U/mL Positive: ?>10 U/mL Blood specimen (specimen) 09/30/2012 3:17 PM EDT 10/01/2012 8:22 AM EDT Narrative Resulting Agency Comment Spec In Lab Arvind Vaca MD IMMUNOLOGY ORDERABLE S [facility] documented in this encounter Visit Diagnoses Diagnosis Diarrhea- Primary documented in this encounter Care Teams Rail Bender Relationship Specialty Start Date End Date Ilya Barrera MD PCP - General 08/26/12 05/10/14 documented as of this encounter
--- OUTSIDE RECORDS SUMMARY | 2024-04-29 10:27 | XMS_ITS | Encounter Summary ---
[place] [address] Care Team Providers Care Milk Tester Name Role Phone Ilya Medina MD Primary Care Provider [phone] Reason for Referral * Diagnostic Test (Routine) - Denied Specialty Diagnoses / Procedures Referred By Contac t Referred To Contact Radiology Diagnoses Primary malignant neoplasm of temporal bone Procedures CT Temporal Bone wo Contrast (Generic) Apolinar Hernández MD [facility] [place] [address] [facility] [place] [address] Referral ID Status Reason Start Date Expiration Date V isits Requested Visits Authorized [id number] Denied Specialty Service Requested 03/08/2021 09/04/2021 1 0 Encounter Details Date Type Department Care Team (Late st Contact Info) Description 02/07/2021 Orders [place] [address] Apolinar Hernández MD [facility] [place] [address] Primary malignant neoplasm of temporal [...] EST Office Visit Radiation Oncology at [address] [phone] Tyrese Fitzgerald MD [facility] [place] [address] documented as of this encounter Results * [...] who have questions please contact the health manager managed care that requested your imaging first. ? [...] patients who have questions please contactthe health manager managed care that requested your imaging first. 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
--- OUTSIDE RECORDS SUMMARY | 2024-04-29 10:27 | XMS_ITS | Encounter Summary ---
Author Organization [facility] Address [facility] [place] [address] Care Team Providers Care Car Hopper Name Role Phone Ilya Barrera MD Primary Care Provider [phone] Reason for Visit * Reason Comments Follow-up Encounter Details Date Type Department Care Team (Late st Contact Info) Description 05/29/2011 8:15 AM EST [place] [phone] Arnaud Linda MD [facility] [place] [address] Dizziness (Primary Dx) Discharge Disposition: Home Social [...] EST Office Visit Radiation Oncology at [address] [address] [facility] [place] [address] documented as of this encounter Visit Diagnoses Diagnosis Dizziness- Primary Dizziness and giddiness documented in this encounter Care Teams Car Hopper Relationship Specialty Start Date End Date Ilya Barrera MD PCP - General 04/04/10 08/25/12 documented as of this encounter
--- OUTSIDE RECORDS SUMMARY | 2024-04-29 10:27 | XMS_ITS | Encounter Summary ---
Author Organization [facility] [place] [address] Care Team Providers Care Cushion Worker Name Role Phone Ilya Medina MD Primary Care Provider Encounter Details Date Type Department Care Team (Late st Contact Info) Description 02/07/2021 Telephone [place] [phone] Jemma Reyes Social History Tobacco Use Types [...] Sunday, February 07, 2021 12:20 PM To: '[email or web address]' <[email or web address]> Subject: KATHY pathology slides Importance: High *KATHY PATH SLIDES REQUEST* Patient: Suman Warner : 1955 [place], The above patient has been referred to our ENT clinic at [facility] by Dr. Karri Trinidad. It appears the patient had a specimen sent to your lab for pathology reading on 02/01/2021. Please forward these slides urgently to: [facility] Department of Otolaryngology [address] [place] [phone] In order to get here the fastest please overnight them using our FedEx number [id number]. Thank you, Jemma Reyes Sr. Clinical Co Founder And Chairman, Audiology & Otolaryngology Assembly Machine Offbearer [facility] phone: [phone] fax: [phone] documented in this encounter Plan of Treatment Upcoming Encounters Date Type Department Care Team (Late st Contact Info) Description 04/29/2024 11:00 AM EST Office Visit Radiation Oncology at [address] [phone] Tyrese Fitzgerald MD [facility] [place] [address] documented as of this encounter Visit Diagnoses Not on filedocumented in this encounter Care Teams Cushion Worker Relationship Specialty Start Date End Date Ilya Medina MD PCP - General 09/25/16 documented as of this encounter
--- OUTSIDE RECORDS SUMMARY | 2024-04-29 10:27 | XMS_ITS | Encounter Summary ---
[place] [address] Care Team Providers Care Ribbing Machine Operator Name Role Phone Ilya Barrera MD Primary Care Provider [phone] Reason for Visit * Reason Comments Follow-up 6 month skin check Encounter Details Date Type Department Care Team (Late st Contact Info) Description 03/27/2012 4:30 PM EST Office Visit Dermatology [address] [place] [address] [address] [place], [place] [address] Enoc Vázquez MD [address] [facility] [place] [address] Atypical nevus (Primary Dx) Social History Tobacco [...] EST Office Visit Radiation Oncology at [address] [address] Tyrese Fitzgerald MD [facility] [place] [address] documented as of this encounter Visit Diagnoses Diagnosis 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
--- OUTSIDE RECORDS SUMMARY | 2024-04-29 10:27 | XMS_ITS | Encounter Summary ---
[place] [address] Care Team Providers Care Chief Environmental Commitment Officer Name Role Phone Ilya Medina MD Primary Care Provider [phone] Reason for Referral * Diagnostic Test (Routine) - Closed Specialty Diagnoses / Procedures Referred By Contac t Referred To Contact Radiology Diagnoses Primary malignant neoplasm of temporal bone Procedures CT Neck Soft Tissue w Contrast (Generic) Apolinar Hernández MD [facility] [place] [place] [address] [facility] [place] [address] Referral ID Status Reason Start Date Expiration Date V isits Requested Visits Authorized [id number] Closed Specialty Service Requested 02/08/2021 08/08/2022 1 1 Encounter Details Date Type Department Care Team (Late st Contact Info) Description 02/08/2021 Orders [place] [address] Nga Winter RN Primary malignant [...] EST Office Visit Radiation Oncology at [address] [address] Tyrese Fitzgerald MD [facility] [place] [address] documented as of this encounter Results * [...] who have questions please contact the health special needs child caregiver that requested your imaging first. ? [...] patients who have questions please contactthe health special needs child caregiver that requested your imaging first. 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
--- OUTSIDE RECORDS SUMMARY | 2024-04-29 10:27 | XMS_ITS | Encounter Summary ---
Author Organization [facility] [place] [address] Care Team Providers Care Anti Tank Missileman Name Role Phone Ilya Barrera MD Primary Care Provider [phone] Reason for Visit * Reason Onset Date Comments Medication Refill 10/21/2012 Encounter Details Date Type Department Care Team (Late Contact Info) Description 10/21/2012 [place] [address] Adarsh Page APRN [facility] [place] [address] Social History Tobacco Use Types Packs/Day Years [...] EST Office Visit Radiation Oncology at [address] [phone] Tyrese Fitzgerald MD [facility] [place] [address] documented as of this encounter Visit Diagnoses Not on filedocumented in this encounter Care Teams Anti Tank Missileman Relationship Specialty Start Date End Date Ilya Barrera MD PCP - General 08/26/12 05/10/14 documented as of this encounter
--- OUTSIDE RECORDS SUMMARY | 2024-04-29 10:27 | XMS_ITS | Encounter Summary ---
Author Organization [facility] Address [facility] [place] [address] Care Team Providers Care Informatica Mdm Architect Name Role Phone Ilya Medina MD Primary Care Provider [phone] Reason for Visit * Auth/Cert Specialty Diagnoses [...] Expiration Date Visits Re quested Visits Authorized [id number] 1 1 Encounter Details Date Type Department Care Team (Latest Contact Info) Description 03/31/2021 6:38 AM EST - 03/31/2021 1:33 PM [facility] Hospital Encounter [place] [address] Apolinar Hernández MD [facility] [place] [address] 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 -The ENT triage nurse is available at [phone] -For urgent issues during evenings and weekends the ENT resident information assurance can be reached through [facility] braille operator at [phone] Follow Up: You will need to follow up with ENT in 7-10 days. This appointment has been requested. You will be notified once it is scheduled, if you do not already see it below. If you do not hear from us in a timely manner, please call [phone] to receive your date and time. Currently Scheduled Appointments: Future Appointments and Orders Future Appointments and Orders Future Appointments Provider Department Dept Phone 04/10/2021 10:40 AM Nash Alberts PA Otolaryngology at [facility] Arrive at: [address] [employer] [phone] 05/15/2021 3:20 PM Apolinar Hernández MD Otolaryngology at [facility] Arrive at: [address] [address] [employer] [phone] 06/19/2021 12:45 PM Pina Snowden, TERRENCE; AUDIOLOGY, [facility] Audiology at [facility] Arrive at: [address] [employer] [phone] 06/19/2021 1:40 PM Apolinar Hernández MD Otolaryngology at [facility] Arrive at: [address] [employer] [phone] documented in this encounter Medications at Time [...] Hernández MD - 03/31/2021 9:31 AM EST [facility] Operative Note Patient Name: Suman Warner : [id number] MR#: [id number] Case Date: 03/31/2021 Surgeon: Surgeon(s) and Role: [...] EST Office Visit Radiation Oncology at [address] [address] Tyrese Fitzgerald MD [facility] [place] [address] documented as of this encounter Procedures Procedure [...] Test, Any/All Per. Nerves, Trunk Or Head (69333) Yes 03/31/2021 8:41 AM EST Cancer of temporal bone Microsurg Techniques, Req Oper Microscope ([id number]) Yes 03/31/2021 8:41 AM EST Cancer of temporal bone Tympanoplasty ([id number]) Yes 03/31/2021 8:41 AM EST Cancer of [...] AM EST 03/31/2021 10:50 AM EST Narrative [facility] - 03/31/2021 10:50 AM EST Specimen requisition ordered. ??Separate Pathology report to follow Apolinar Hernández MD PATHOLOGY/CYTOLOGY O ANA LUISA Performing Organization Address City/[facility]/[place] [address] * Specimen to Pathology (03/31/2021 10:50 AM EST) AP Specimen 03/31/2021 10:5 0 AM EST 03/31/2021 10:50 AM EST Narrative [facility] - 03/31/2021 10:50 AM EST Specimen requisition ordered. ??Separate Pathology report to follow Apolinar Hernández MD PATHOLOGY/CYTOLOGY O ANA LUISA Performing Organization Address City/[facility]/ZIP Co de Phone Number [facility] [place] [address] * Specimen to Pathology (03/31/2021 10:42 AM EST) AP Specimen 03/31/2021 10:4 2 AM EST 03/31/2021 10:42 AM EST Narrative [facility] - 03/31/2021 10:42 AM EST Specimen requisition ordered. ??Separate Pathology report to follow Apolinar Hernández MD PATHOLOGY/CYTOLOGY O ANA LUISA Performing Organization Address [facility] [place] [address] * Specimen to Pathology (03/31/2021 10:34 AM EST) AP Specimen 03/31/2021 10:3 4 AM EST 03/31/2021 10:34 AM EST Narrative [facility] - 03/31/2021 10:34 AM EST Specimen requisition ordered. ??Separate Pathology report to follow Apolinar Hernández MD PATHOLOGY/CYTOLOGY O ANA LUISA Performing Organization Address [facility] [place] [address] * Surgical Pathology Report (03/31/2021 10:14 AM EST) Pathologist [facility] Final Diagnosis [id number] ? Location: [facility]; [facility]; A The signing pathologist has (i) examined [...] DO Verified: ??04/10/2021 13:51 ??Pathologist Performed at: ??-[facility] Dept. of Pathology, [place], [place] ADDITIONAL STUDIES The [facility] was reviewed. SPECIMEN(S) SUBMITTED A - LEFT [...] labeled E1. ??sns 04/10/2021 1:51 PM EST [facility] SPECIMEN FROM SKIN / Unknown [...] PATHOLOGY/CYTOLOGY O ANA LUISA Performing Organization Address City/[facility] Co de Phone Number [facility] [place] [address] * Specimen to Pathology (03/31/2021 10:14 AM EST) AP Specimen 03/31/2021 10:1 4 AM EST 03/31/2021 10:14 AM EST Narrative [facility] - 03/31/2021 10:14 AM EST Specimen requisition ordered. ??Separate Pathology report to follow Apolinar Hernández MD PATHOLOGY/CYTOLOGY O ANA LUISA Performing Organization Address [facility]/ZIP Co de Phone Number [facility] [place] [address] documented in this encounter Visit Diagnoses Diagnosis [...] (Intra-Procedure) 0931 (Given - Provid er: Apolinar Hernándze MD) lidocaine-EPINEPHrine (1% - 1:100,000) injection (CANCELED) ONCE PRN, Starting on Sat03/31/21 at 0920, Until Sat03/31/21 at 1600, Intra-Operative (Intra-Procedure), Routine 0920 (Given - Provid er: Apolinar Hernández MD)0955 (Given - Provider: Apolinar Hernández MD) documented in this encounter Care Teams Informatica Mdm Architect Relationship Specialty Start Date End Date Ilya Medina MD PCP - General 09/25/16 documented as of this encounter
--- OUTSIDE RECORDS SUMMARY | 2024-04-29 10:27 | XMS_ITS | Encounter Summary ---
Author Organization [facility] [place] [address] Care Team Providers Care Marketing Regional Consultant Name Role Phone Ilya Medina MD Primary Care Provider Encounter Details Date Type Department Care Team (Late st Contact Info) Description 03/13/2021 Notes [place] [phone] Nga Winter RN Social History Tobacco Use [...] legs below the knee removed) around 1964. [id number] at the age of 82. Grandmother on [...] EST Office Visit Radiation Oncology at [address] [phone] Tyrese Fitzgerald MD [facility] [place] [address] documented as of this encounter Visit Diagnoses Not on filedocumented in this encounter Care Teams Marketing Regional Consultant Relationship Specialty Start Date End Date Ilya Medina MD PCP - General 09/25/16 documented as of this encounter
--- OUTSIDE RECORDS SUMMARY | 2024-04-29 10:27 | XMS_ITS | Encounter Summary ---
Author Organization [facility] Address [facility] [place] [address] Care Team Providers Care Meteorology Faculty Member Name Role Phone Ilya Barrera MD Primary Care Provider [phone] Encounter Details Date Type Department Care Team (Late st Contact Info) Description 03/20/2011 1:00 PM EST - 03/20/2011 1:30 PM EST [place] [phone] Tong Ramos MD [facility] [place] [address] UPPER GASTROINTESTINAL ENDOSCOPY,WITH BIOPSY SINGLE OR MULTIPLE [...] - 03/20/2011 2:16 PM EST Please call [phone] before 5 pm with problems, questions, or concerns. After 5 pm call [phone] and ask to speak with the sports bookmaker loss control engineer. Discharge instructions reviewed with patient who expresses understanding. Please call [phone] before 5 pm with problems, questions, or concerns. After 5 pm call [phone] and ask to speak with the sports bookmaker loss control engineer. Discharge instructions reviewed with patient who expresses understanding. * Patient Instructions* Tong Ramos MD - 03/20/2011 2:04 PM EST Please see Recommendations in the Provation procedure report which is documented in the procedural note in E-DH. * Attachments The following attachments cannot be sent through Care Everywhere. * UPPER GI ENDOSCOPY: WHAT TO EXPECT AT HOME (SOUTH KORE[place]) documented in this encounter Medications at Time [...] EST Office Visit Radiation Oncology at [address] [phone] Tyrese Fitzgerald MD [facility] [place] [address] documented as of this encounter Procedures Procedure [...] Pathology Report (03/20/2011 3:55 PM EST) Pathologist [facility] Surgical Pathology Report [id number] ? Location: 4T The signing pathologist has [...] (03/20/2011 1:47 PM EST) UPPER GI ENDOSCOPY [facility] Endoscopy Patient Name: Suman Warner ? Procedure Date: 03/20/2011 01:47:35 PM ? [facility]: [id number] ? Date of : 1955 ? Age: 55 ? Procedure: ? Upper GI endoscopy Indications: ? Globus sensation on PPI ? Assess for GERD, Barrett placement Providers: ? Tong Ramos MD, Nadja Hudson ? Lee Ann, EUSEBIO, Nash Ling, ? Mechatronics Engineer Referring MD: ?Ilya Barrera MD Medicines: ? [...] RN) documented in this encounter Care Teams Meteorology Faculty Member Relationship Specialty Start Date End Date Ilya Barrera MD PCP - General 04/04/10 08/25/12 documented as of this encounter
--- OUTSIDE RECORDS SUMMARY | 2024-04-29 10:27 | XMS_ITS | Encounter Summary ---
Author Organization [facility] [place] [address] Care Team Providers Care Title I Coordinator Name Role Phone Imani Thompson MD Primary Care Provider [phone] Encounter Details Date Type Department Care Team (Late st Contact Info) Description 03/20/2011 1:00 PM EST Office [place] [phone] CLINIC, Neelima Walker RN GERD (gastroesophageal reflux [...] problem-specific visit notes found for this encounter. DUWIK-YEHFI-KDKT WIRELESS pH CAPSULE PLACED IN MOTILITY LAB Suman Warner Male, 55 yrs, 1955 PCP: IMANI THOMPSON STUDY DATES: 03/20/11 to 03/22/11 INTERPRETATION DATE: 03/31/11 PROVIDER: Arvind [place] ([id number]) INDICATION Lump in throat thought secondary to [...] 0.1% Percent of Supine Recording Time: 0% Hvlik-Muohx-Awbm (Total) Fraction of Time with pH Less Than 4%: 1.1% Calculated DeMeester Score (normal values are up to 14.72) Day One Calculated DeMeester Score: 10.4 Day Two Calculated DeMeester Score: 0.4 Vuknl-Eihwg-Bnvu DeMeester Score (Total): 5.4 Day One Symptoms Association Probability (SAP) for Heartburn: *% Regurgitation: 18% Chest pain: 18% Other: *% Day Two SAP for Heartburn: *% Regurgitation: 0 Chest pain: *% Other: *% Mdqhh-Uiffg-Wgrz SAP for Heartburn: *% Regurgitation: 10% Chest [...] 95% are positive. Arvind Vaca MD, PhD health center manager Section of Gastroenterology [place] [address] V: [phone] F: [phone] BEL/cuco EC/CC: Imani Thompson MD [address] [place] [address] * Neelima Herring RN - 03/20/2011 2:09 PM EST 1400 Barrett capsule deployed at 35 cm below incisors following EGD performed by Dr. Mathis. Study is being done on Aciphex 20 mgm daily according to patient. First pH is 7.0. 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 documented in this encounter Miscellaneous Notes * Miscellaneous - David, Claims Examiner - 03/20/2011 4:49 PM EST documented in this encounter Plan of Treatment Upcoming Encounters Date Type Department Care Team (Late st Contact Info) Description 04/29/2024 11:00 AM EST Office Visit Radiation Oncology at [address] [phone] Tyrese Fitzgerald MD [facility] [place] [address] documented as of this encounter Visit Diagnoses Diagnosis GERD (gastroesophageal reflux disease)- Primary Esophageal reflux documented in this encounter Care Teams Title I Coordinator Relationship Specialty Start Date End Date Imani Thompson MD PCP - General 04/04/10 08/25/12 documented as of this encounter
--- OUTSIDE RECORDS SUMMARY | 2024-04-29 10:27 | XMS_ITS | Encounter Summary ---
Author Organization [facility] Address [facility] Alyssia [place] [address] Care Team Providers Care Instructor Nurse Name Role Phone Ilya Barrera MD Primary Care Provider [phone] Reason for Visit * Reason Comments Other hearing goes dwon wh en turns head Encounter Details Date Type Department Care Team (Late st Contact Info) Description 12/06/2010 3:30 PM EDT Follow-[place] [address] Arnaud Linda MD [facility] [place] [address] Chronic serous otitis media (Primary Dx) Discharge [...] EST Office Visit Radiation Oncology at [address] [phone] Tyrese Fitzgerald MD [facility] [place] [address] documented as of this encounter Visit Diagnoses Diagnosis Chronic serous otitis media- Primary Simple or unspecified chronic serous otitis media documented in this encounter Care Teams Instructor Nurse Relationship Specialty Start Date End Date Ilya Barrera MD PCP - General 04/04/10 08/25/12 documented as of this encounter
--- OUTSIDE RECORDS SUMMARY | 2024-04-29 10:27 | XMS_ITS | Encounter Summary ---
Author Organization [facility] [place] [address] Care Team Providers Care Mechanical Assembly Name Role Phone Ilya Medina MD Primary Care Provider [phone] Encounter Details Date Type Department Care Team (Late st Contact Info) Description 03/01/2021 Telephone [place] [phone] Nga Winter RN Social History Tobacco Use [...] copy of the papers he's received from [employer] re:denial of a procedure Dr. Hernández has recommended. Patient would like email address to be left on his VM, as he's out hiking right now. Patient called back and nurse's email left for him ([email or web address]) on his VM, along with call back number. documented in this encounter Plan of Treatment Upcoming Encounters Date Type Department Care Team (Late st Contact Info) Description 04/29/2024 11:00 AM EST Office Visit Radiation Oncology at [address] [phone] Tyrese Fitzgerald MD [facility] RADIATION [place] [address] documented as of this encounter Visit Diagnoses Not on filedocumented in this encounter Care Teams Mechanical Assembly Relationship Specialty Start Date End Date Ilya Medina MD PCP - General 09/25/16 documented as of this encounter
--- OUTSIDE RECORDS SUMMARY | 2024-04-29 10:27 | XMS_ITS | Encounter Summary ---
Author Organization [facility] [place] [address] Care Team Providers Care Disc Jockey Name Role Phone Ilya Medina MD Primary Care Provider [phone] Encounter Details Date Type Department Care Team (Late Contact Info) Description 02/09/2021 Orders [place] [address] Ailyn Farris RN Primary malignant neoplasm of [...] EST Office Visit Radiation Oncology at [address] [phone] Tyrese Fitzgerald MD [facility] [place] [address] documented as of this encounter Visit Diagnoses Diagnosis Primary malignant neoplasm of temporal bone- Primary documented in this encounter Care Teams Disc Jockey Relationship Specialty Start Date End Date Ilya Medina MD PCP - General 09/25/16 documented as of this encounter
--- OUTSIDE RECORDS SUMMARY | 2024-04-29 10:27 | XMS_ITS | Encounter Summary ---
[place] [address] Care Team Providers Care Renewable Energy Engineer Name Role Phone Ilya Barrera MD Primary Care Provider [phone] Reason for Visit * Reason Onset Date Comments Results 04/25/2011 Encounter Details Date Type Department Care Team (Late st Contact Info) Description 04/25/2011 Telephone [place] [phone] Keshia Esqueda RN Results Social History Tobacco [...] EST Office Visit Radiation Oncology at [address] [phone] Tyrese Fitzgerald MD [facility] [place] [address] documented as of this encounter Visit Diagnoses Not on filedocumented in this encounter Care Teams Renewable Energy Engineer Relationship Specialty Start Date End Date Ilya Barrera MD PCP - General 04/04/10 08/25/12 documented as of this encounter
--- OUTSIDE RECORDS SUMMARY | 2024-04-29 10:27 | XMS_ITS | Encounter Summary ---
Author Organization Formerly [facility] [place] [address] Care Team Providers Care Bacteriologist Medical Name Role Phone Ilya Barrera MD Primary Care Provider Reason for Visit * Reason Comments Skin Check Encounter Details Date Type Department Care Team (Late st Contact Info) Description 03/19/2011 3:00 PM EST Office Visit Dermatology [address] [facility] [address] [place] [address] Enoc Vázquez MD [address] [facility] [place] [address] Seborrheic keratosis, inflamed (Primary Dx) Social History [...] EST Office Visit Radiation Oncology at [address] [address] [facility] [place] [address] documented as of this encounter Visit Diagnoses Diagnosis Seborrheic keratosis, inflamed- Primary Inflamed seborrheic keratosis documented in this encounter Care Teams Bacteriologist Medical Relationship Specialty Start Date End Date Ilya Barrera MD PCP - General 04/04/10 08/25/12 documented as of this encounter
--- OUTSIDE RECORDS SUMMARY | 2024-04-29 10:27 | XMS_ITS | Encounter Summary ---
[place] [address] Care Team Providers Care Senior Account Director Name Role Phone Ilya Barrera MD Primary Care Provider [phone] Reason for Visit * Reason Comments Procedure Encounter Details Date Type Department Care Team (Late st Contact Info) Description 10/09/2011 10:30 AM EDT Office Visit Dermatology [address] [facility] [address] [place] [address] Enoc Vázquez MD 580 [facility] [place] [address] Nevus (Primary Dx) Social History Tobacco Use [...] removal and biopsy results. Pathology Addendum per [facility] 10/13/11 : Sites A and B: Intradermal Nevi documented in this encounter Procedure Notes * Provider, Scanning - 10/16/2011 5:38 PM EDTAssociated Order(s): SCAN DOC: SURGICAL PATHOLOGY documented in this encounter Plan of Treatment Upcoming Encounters Date Type Department Care Team (Late st Contact Info) Description 04/29/2024 11:00 AM EST Office Visit Radiation Oncology at [address] [address] Tyrese Fitzgerald MD [facility] [place] [address] documented as of this encounter Procedures Procedure [...] documented in this encounter Care Teams Senior Account Director Relationship Specialty Start Date End Date Ilya Barrera MD PCP - General 04/04/10 08/25/12 documented as of this encounter
--- OUTSIDE RECORDS SUMMARY | 2024-04-29 10:27 | XMS_ITS | Encounter Summary ---
Author Organization [facility] Address [facility] [place] [address] Care Team Providers Care Hoisting Laborer Name Role Phone Ilya Barrera MD Primary Care Provider [phone] Encounter Details Date Type Department Care Team (Latest Contact Info) Description 03/20/2011 12:01 PM EST - 03/20/2011 3:00 PM EST Hospital En[place] [address] Milton Kerr MD [facility] [place] [address] Tong Ramos MD [facility] [place] [address] GERD (gastroesophageal reflux disease) Discharge Disposition: Home [...] - 03/20/2011 2:16 PM EST Please call [phone] before 5 pm with problems, questions, or concerns. After 5 pm call [phone] and ask to speak with the cashier receptionist supervisor electron tube processing. Discharge instructions reviewed with patient who expresses understanding. Please call [phone] before 5 pm with problems, questions, or concerns. After 5 pm call [phone] and ask to speak with the cashier receptionist supervisor electron tube processing. Discharge instructions reviewed with patient who expresses understanding. * Patient Instructions* Tong Ramos MD - 03/20/2011 2:04 PM EST Please see Recommendations in the Provation procedure report which is documented in the procedural note in E-DH. * Attachments The following attachments cannot be sent through Care Everywhere. * UPPER GI ENDOSCOPY: WHAT TO EXPECT AT HOME ([place]) documented in this encounter Medications at Time [...] EST Office Visit Radiation Oncology at [address] [address] Tyrese Fitzgerald MD [facility] [place] [address] documented as of this encounter Procedures Procedure [...] 3:55 PM EST) Surgical Pathology Report [id number] ? Location: 4T The signing pathologist has [...] MD PATHOLOGY/CYTOLOGY O R[place] Performing Organization Address City/State/[facility] Co de Phone Number LUKE [...] (03/20/2011 1:47 PM EST) UPPER GI ENDOSCOPY [facility] Patient Name: Suman Warner ? Procedure Date: 03/20/2011 01:47:35 PM ? N: [id number] ? Date of : 1955 ? Age: 55 ? Procedure: ? Upper GI endoscopy Indications: ? Globus sensation on PPI ? Assess for GERD, Barrett placement Providers: ? Tong Ramos MD, Nadja Fuentes. ? EUSEBIO Nance, Nash Ling, ? Wheel Buffer Referring MD: ?Ilya Barrera MD Medicines: ? [...] RN) documented in this encounter Care Teams Hoisting Laborer Relationship Specialty Start Date End Date Ilya Barrera MD PCP - General 04/04/10 08/25/12 documented as of this encounter
--- OUTSIDE RECORDS SUMMARY | 2024-04-29 10:27 | XMS_ITS | Encounter Summary ---
[place] [address] Care Team Providers Care Compound Finisher Name Role Phone Ilya Medina MD Primary Care Provider [phone] Encounter Details Date Type Department Care Team (Late Contact Info) Description 03/02/2021 Telephone [place] [phone] Yenni Lemos Social History Tobacco Use Types [...] EST Office Visit Radiation Oncology at [address] [address] Tyrese Fitzgerald MD [facility] [place] [address] documented as of this encounter Visit Diagnoses Not on filedocumented in this encounter Care Teams Compound Finisher Relationship Specialty Start Date End Date Ilya Medina MD PCP - General 09/25/16 documented as of this encounter
--- OUTSIDE RECORDS SUMMARY | 2024-04-29 10:27 | XMS_ITS | Encounter Summary ---
Author Organization [facility] [place] [address] Care Team Providers Care Bander Name Role Phone Ilya Barrera MD Primary Care Provider [phone] Encounter Details Date Type Department Care Team (Late Contact Info) Description 11/29/2010 Abstract Dermatology [address] [facility] [address] [place] [address] Neelima Jensen RN Social History Tobacco Use [...] EST Office Visit Radiation Oncology at [address] [address] Tyrese Fitzgerald MD [facility] [place] [address] documented as of this encounter Visit Diagnoses Not on filedocumented in this encounter Care Teams Bander Relationship Specialty Start Date End Date Ilya Barrera MD PCP - General 04/04/10 08/25/12 documented as of this encounter
--- OUTSIDE RECORDS SUMMARY | 2024-04-29 10:27 | XMS_ITS | Encounter Summary ---
Author Organization [facility] [place] [address] Care Team Providers Care French Folding Machine Operator Name Role Phone Ilya Medina MD Primary Care Provider [phone] Reason for Visit * Reason Comments Other L ear with drainage. no pain. 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 [address] Referral ID Status Reason Start Date Expiration Date Visits Re quested Visits Authorized [id number] Closed 02/07/2021 02/07/2022 1 1 Encounter Details Date Type Department Care Team (Latest Contact Info) Description 02/23/2021 10:40 AM EDT Office [place] [address] Apolinar Hernández MD [facility] [address] Cancer of temporal bone (Primary Dx); Chronic [...] Hernández MD - 02/23/2021 10:40 AM EDT [facility] Otolaryngology - Head and Neck Surgery Apolinar Hernández MD 02/23/21 10:53 AM [place] [address] Office Patient Name: Suman Warner Date of [...] canal wall down tympanomastoidectomy in 1968 in [place] for cholesteatoma. 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 Patient recently retired from regular employment this past spring. Denies any past history of malignancy. No history of immunosuppression. Audiogram 02/23/2021 personally reviewed. Findings on the right reveal a severe rising to moderate sloping to severe profound mixed hearing loss. On the left, patient exhibits a severe mixed hearing loss. Bone-conduction thresholds largely symmetric. Speech receptionist airline lounge thresholds at 40 dB for the right [...] BX performed by Xiang Owen MD at [facility] ENDOSCOPY ??? PRO UPPER GI ENDOSCOPY, BIOPSY 03/20/2011 UPPER GASTROINTESTINAL ENDOSCOPY,WITH BIOPSY SINGLE OR MULTIPLE performed by JORDAN RAMOS at [facility] ENDOSCOPY Bilateral tympanomastoidectomy T&A Family and Social History Family History: No family history on file. Social History: Lives in [place] [address] Social History Socioeconomic History ??? Marital status: [...] values are as follows: Outside slide(s) labeled [id number], collection date 02/01/2021. Left mastoid bowl, debridement/curetting: [...] EST Office Visit Radiation Oncology at [address] [phone] Tyrese Fitzgerald MD 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
--- OUTSIDE RECORDS SUMMARY | 2024-04-29 10:27 | XMS_ITS | Encounter Summary ---
[place] [address] Care Team Providers Care Ditto Machine Operator Name Role Phone Lawson Hankins MD Primary Care Provider [phone] Reason for Visit * Reason Comments Follow-up Encounter Details Date Type Department Care Team (Late st Contact Info) Description 05/11/2014 2:45 PM EST Office Visit Dermatology at [address] [phone] Enoc Vázquez MD 580 [facility] [place] [address] Chilblains, initial encounter Discharge Disposition: Home Social [...] sports. 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 c. The patient does have a Raynaud-like phenomenon on one of his fingertips when he gets something cold out of the freezer or refrigerator. I recommended that he try to keep his foot warm with wool socks, wear warm boots when out of doors, and consider a [employer] foot-warmer type pad that could be added [...] EST Office Visit Radiation Oncology at [address] [phone] Tyrese Fitzgerald MD [facility] [place] [address] documented as of this encounter Visit Diagnoses Diagnosis Chilblains, initial encounter documented in this encounter Care Teams Ditto Machine Operator Relationship Specialty Start Date End Date Lawson Hankins MD [facility] [address] [place] [address] PCP - General 05/11/14 09/24/16 documented as of this encounter
--- OUTSIDE RECORDS SUMMARY | 2024-04-29 10:27 | XMS_ITS | Encounter Summary ---
[place] [address] Care Team Providers Care Telesales Supervisor Name Role Phone Ilya Barrera MD Primary Care Provider [phone] Reason for Visit * Reason Comments Verrucous Vulgaris Skin Lesion Encounter Details Date Type Department Care Team (Late st Contact Info) Description 11/30/2010 9:45 AM EDT Office Visit Dermatology [address] [place] [address] [address] [place], [place] [phone] Enoc Vázquez MD 580 [facility] [place] [address] Verruca vulgaris (Primary Dx); Acrochordons; Dysplastic nevus [...] melanoma in situ. 3c. We will plan [id number] followups for two years and then once yearly. cc: Ilya Barrera M.D. documented in this encounter Plan of Treatment Upcoming Encounters Date Type Department Care Team (Late st Contact Info) Description 04/29/2024 11:00 AM EST Office Visit Radiation Oncology at [address] [address] Tyrese Fitzgerald MD [facility] [place] [address] documented as of this encounter Visit Diagnoses Diagnosis Verruca vulgaris- Primary Viral warts, unspecified Acrochordons Unspecified hypertrophic and atrophic condition of skin Dysplastic nevus Benign neoplasm of skin, site unspecified documented in this encounter Care Teams Telesales Supervisor Relationship Specialty Start Date End Date Ilya Barrera MD PCP - General 04/04/10 08/25/12 documented as of this encounter
--- OUTSIDE RECORDS SUMMARY | 2024-04-29 10:27 | XMS_ITS | Encounter Summary ---
Author Organization [facility] Address [facility] [place] [address] Care Team Providers Care Sports Team Marketing Intern Name Role Phone Ilya Barrera MD Primary Care Provider [phone] Reason for Visit * Reason Comments Follow-up Encounter Details Date Type Department Care Team (Late st Contact Info) Description 02/06/2011 9:45 AM EDT [place] [phone] Arnaud Linda MD [facility] [place] [address] Chronic serous otitis media (Primary Dx); Dysphagia [...] AM EST Office Visit Radiation Oncology at [address] [address] Tyrese Fitzgerald MD [facility] [place] [address] documented as of this encounter Results * [...] unspecified documented in this encounter Care Teams Sports Team Marketing Intern Relationship Specialty Start Date End Date Ilya Barrera MD PCP - General 04/04/10 08/25/12 documented as of this encounter
--- OUTSIDE RECORDS SUMMARY | 2024-04-29 10:27 | XMS_ITS | Encounter Summary ---
Author Organization [facility] Address [facility] [place] [address] Care Team Providers Care Director Home Name Role Phone Ilya Barrera MD Primary Care Provider [phone] Encounter Details Date Type Department Care Team (Late st Contact Info) Description 10/09/2012 2:30 PM EDT - 10/09/2012 3:30 PM EDT Surgery [place] [address] Rubin Owen MD [facility] DR [place]STRO[place] [address] COLONOSCOPY FLEXIBLE, WITH BX (WRVU 3.56) Social [...] occurs, please contact your MD. Please call [phone] before 5pm with problems, questions or concerns. After 5pm call [phone] and ask to speak with the foundry laborer coreroom directional bore operator. Discharge instructions reviewed with patient who expresses [...] you need to be checked. Saturday-Saturday Clinic [phone] 8a-5p Same Day Endo [phone] 7a-8p Otherwise contact [phone] and ask to speak to the foundry laborer coreroom directional bore operator Follow up care is a mims part [...] EST Office Visit Radiation Oncology at [address] [address] Tyrese Fitzgerald MD [facility] [place] [address] documented as of this encounter Procedures Procedure [...] 2:55 PM EDT) Surgical Pathology Report ? [facility] ? Provider: ?? RUBIN OWEN ?Pt. Name: ?? SUMAN WARNER ? Acc #: ?[id number] ?Pt. ? Col Date: ?? 10/09/2012 ? [...] PATHOLOGY/CYTOLOGY O ANA LUISA Performing Organization Address [facility] de Phone Number LUKE ORLANDO * Specimen to Pathology (surgical or derm) (10/09/2012 2:55 PM EDT) AP Specimen 10/09/2012 2:55 PM EDT 10/09/2012 2:55 PM EDT Narrative LUKE LAIUM - 10/09/2012 2:55 PM EDT Specimen requisition ordered. ??Separate Pathology report to follow Rubin Owen MD PATHOLOGY/CYTOLOGY O ANA LUISA Performing Organization Address [facility] de Phone Number LUKE ORLANDO * Specimen to Pathology (surgical or derm) (10/09/2012 2:55 PM EDT) AP Specimen 10/09/2012 2:55 PM EDT 10/09/2012 2:55 PM EDT Narrative LAURANER BESSIEIUM - 10/09/2012 2:55 PM EDT Specimen requisition ordered. ??Separate Pathology report to follow Rubin Owen MD PATHOLOGY/CYTOLOGY O ANA LUISA Performing Organization Address [facility] de Phone Number LUKE LAIUM * COLONOSCOPY (10/09/2012 1:56 PM EDT) COLONOSCOPY [facility] Endoscopy Patient Name: Suamn Warner ? Procedure Date: 10/09/2012 1:56 PM ? Date of : 1955 ? Age: 57 ? Order #: [id number] ? Procedure: ? Colonoscopy Indications: ? Chronic diarrhea Providers: ? Rubin Owen MD, Connie Modi, ? RN, Neelima Nixon, Investor Relations Specialist Referring MD: ?Ilya Barrera MD, Adarsh Page [...] RN) documented in this encounter Care Teams Director Home Relationship Specialty Start Date End Date Ilya Barrera MD PCP - General 08/26/12 05/10/14 documented as of this encounter
--- OUTSIDE RECORDS SUMMARY | 2024-04-29 10:27 | XMS_ITS | Encounter Summary ---
[place] [address] Care Team Providers Care Unit Control Clerk Name Role Phone Lawson Hankins MD Primary Care Provider [phone] Reason for Visit * Reason Comments Follow-up Encounter Details Date Type Department Care Team (Late st Contact Info) Description 02/20/2016 9:30 AM EDT Office Visit Dermatology at [place] [address] [place] [address] Enoc Vázquez MD 580 [facility] [place] [address] Viral warts, unspecified type Social History Tobacco [...] EST Office Visit Radiation Oncology at [address] [address] Tyrese Fitzgerald MD [facility] [place] [address] documented as of this encounter Visit Diagnoses Diagnosis Viral warts, unspecified type documented in this encounter Care Teams Unit Control Clerk Relationship Specialty Start Date End Date Lawson Hankins MD [facility] [address] [place] [address] PCP - General 05/11/14 09/24/16 documented as of this encounter
--- OUTSIDE RECORDS SUMMARY | 2024-04-29 10:27 | XMS_ITS | Encounter Summary ---
[place] [address] Care Team Providers Care Packing Machine Pilot Can Router Name Role Phone Ilya Barrera MD Primary Care Provider [phone] Reason for Visit * Reason Comments Skin Check Encounter Details Date Type Department Care Team (Late st Contact Info) Description 04/28/2012 11:00 AM EST Office Visit Dermatology [address] [facility] [address] [place], [place] [address] Enoc Vázquez MD 580 [facility] [place] [address] Chilblains (Primary Dx) Social History Tobacco Use [...] EST Office Visit Radiation Oncology at [address] [address] Tyrese Fitzgerald MD [facility] RADIATION [place] [address] documented as of this encounter Visit Diagnoses Diagnosis Chilblains- Primary Effects of chilblains documented in this encounter Care Teams Packing Machine Pilot Can Router Relationship Specialty Start Date End Date Ilya Barrera MD PCP - General 04/04/10 08/25/12 documented as of this encounter
--- OUTSIDE RECORDS SUMMARY | 2024-04-29 10:27 | XMS_ITS | Encounter Summary ---
Author Organization [facility] Address [facility] [place] [address] Care Team Providers Care Cooler Servicer Name Role Phone Imani Thompson MD Primary Care Provider [phone] Reason for Visit * Reason Comments Gastroesophageal Reflux Encounter Details Date Type Department Care Team (Late st Contact Info) Description 02/21/2011 8:30 AM EDT Office [place] [address] Ruthie Braden MD [facility] [place] [address] GERD (gastroesophageal reflux disease) (Primary Dx) Discharge [...] Hepatology Consultation Patient Suman Warner [address] [facility] [place] [address] Arnaud Linda MD ENT Primary Care Physician IMANI THOMPSON MD [facility] [address] [place] [facility] [place] [address] CC: GERD HPI: 55 y.o. gentleman reports [...] an EGD 4 years ago (done at [facility]) and he was found to have a [...] History: Grandfather (P): 80s DM Grandmother (P): PA (in her mid 80s) Grandmother (M): PA (in her 70s) Mom: Emphysema. at 67 Dad: brain tumor. at 59 Two brothers and 4 sisters: no medical problems that he is aware of. Social history: No smoking. No chewing tobacco. No ETOH. Lives with He has three healthy sons. 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 No drug use. Lives in [place]. Physical exam: BP 141/88 Pulse 72 Ht [...] EST Office Visit Radiation Oncology at [address] [address] Tyrese Fitzgerald MD [facility] [place] [address] documented as of this encounter Visit Diagnoses Diagnosis GERD (gastroesophageal reflux disease)- Primary Esophageal reflux documented in this encounter Care Teams Cooler Servicer Relationship Specialty Start Date End Date Imani Thompson MD PCP - General 04/04/10 08/25/12 documented as of this encounter
--- OUTSIDE RECORDS SUMMARY | 2024-04-29 10:28 | XMS_ITS | Encounter Summary ---
Author Organization [facility] [place] [address] Care Team Providers Care Crew Foreman Name Role Phone Ilya Barrera MD Primary Care Provider [phone] Encounter Details Date Type Department Care Team (Late Contact Info) Description 04/17/2010 11:30 AM EST Follow-[place] [address] Arnaud Linda MD [facility] [place] [address] Discharge Disposition: Home Social History Tobacco Use [...] EST Office Visit Radiation Oncology at [address] [phone] Tyrese Fitzgerald MD [facility] [place] [address] documented as of this encounter Visit Diagnoses Not on filedocumented in this encounter Care Teams Crew Foreman Relationship Specialty Start Date End Date Ilya Barrera MD PCP - General 04/04/10 08/25/12 documented as of this encounter
--- OUTSIDE RECORDS SUMMARY | 2024-04-29 10:28 | XMS_ITS | Encounter Summary ---
Author Organization [facility] [place] [address] Care Team Providers Care Environmental Protection Forester Name Role Phone Unavailable Primary Care Provider Unavailabl e Encounter Details Date Type Department Care Team (Late st Contact Info) Description 03/23/2010 10:15 AM EST Follow-Up Audiology at [address] [address] Myles Gonzales, TERRENCE [facility] [place] [address] Social History Tobacco Use Types Packs/Day Years [...] EST Office Visit Radiation Oncology at [address] [address] Tyrese Fitzgerald MD [facility] [place] [address] documented as of this encounter Visit Diagnoses Not on filedocumented in this encounter
--- OUTSIDE RECORDS SUMMARY | 2024-04-29 10:28 | XMS_ITS | Encounter Summary ---
Author Organization [facility] Address [facility] [place] [address] Care Team Providers Care Infusion Rn Name Role Phone Ilya Barrera MD Primary Care Provider [phone] Reason for Visit * Reason Comments Enuresis Encounter Details Date Type Department Care Team (Late st Contact Info) Description 11/23/2010 1:40 PM EDT [place] [address] Jose Pelaez III, MD [facility] [place] [address] Urinary dribbling (Primary Dx) Discharge Disposition: Home [...] preventing any leakage. The patient will trial [id number] daily and increase to 4mg daily in one month if he is not improved. I will see him back in clinic in 3 months. documented in this encounter Plan of Treatment Upcoming Encounters Date Type Department Care Team (Late st Contact Info) Description 04/29/2024 11:00 AM EST Office Visit Radiation Oncology at [address] [address] Tyrese Fitzgerald MD [facility] [place] [address] documented as of this encounter Visit Diagnoses Diagnosis Urinary dribbling- Primary Post-void dribbling documented in this encounter Care Teams Infusion Rn Relationship Specialty Start Date End Date Ilya Barrera MD PCP - General 04/04/10 08/25/12 documented as of this encounter
--- OUTSIDE RECORDS SUMMARY | 2024-04-29 10:28 | XMS_ITS | Clinical Summary ---
Author Organization [facility] Address [address] [place] [address] Care Team Providers Care Campus Recruiting Coordinator Name Role Phone Ilya Barrera MD Primary Care Provider [phone] Social History Tobacco Use Types Packs/Day Years Used Date Smoking Tobacco: Never Assessed Sex and Gender Information Value Date Recorded Sex Assigned at Not on file Legal Sex Male 17:34 EST Gender Identity Not on file Sexual Orientation Not on file Plan of Treatment Health Maintenance Due Date Last Done Comments Hepatitis C Screen 1955 Fall Risk Screening 2021 COVID-19 Vaccine (2023- season) 2024 RSV Immunization ( o r 60+ Years) (1 - 1-dose 75+ series) 2031 Insurance [employer] MEDICARE ACO [place] Care Teams Campus Recruiting Coordinator Relationship Specialty Start Date End Date Ilya Barrera MD PCP - General 03/21/15
--- OUTSIDE RECORDS SUMMARY | 2024-04-29 10:28 | XMS_ITS | Encounter Summary ---
Author Organization [facility] [place] [address] Care Team Providers Care Attendance Officer Name Role Phone Ilya Barrera MD Primary Care Provider [phone] Encounter Details Date Type Department Care Team (Late st Contact Info) Description 11/22/2010 [place] [address] Edie Hahn RN Social History Tobacco Use [...] EST Office Visit Radiation Oncology at [address] [address] Tyrese Fitzgerald MD [facility] DR [place] [address] documented as of this encounter Visit Diagnoses Not on filedocumented in this encounter Care Teams Attendance Officer Relationship Specialty Start Date End Date Ilya Barrera MD PCP - General 04/04/10 08/25/12 documented as of this encounter
--- OUTSIDE RECORDS SUMMARY | 2024-04-29 10:28 | XMS_ITS | Encounter Summary ---
Author Organization [facility] Address [address] [place] [address] Care Team Providers Care Special Assets Officer Name Role Phone Ilya Barrera MD Primary Care Provider [phone] Encounter Details Date Type Department Care Team (Late st Contact Info) Description 05/31/2020 Lab Requisition [facility] Pathology & Laboratory Medicine - [address] [address] Outr Resulting Lab, Provider Social History Tobacco [...] 0.0 - 4.5 ng/mL 05/31/2020 17:26 EST [facility] Blood VENOUS BLOOD / Unknown 05/30/2020 15:10 EST 05/31/2020 16:15 EST Narrative [facility] - 05/31/2020 17:26 EST NOTE: Serum PSA concentration should not be interpreted as absolute evidence for the presence or absence of malignant disease. Assayed on Siemens ADVIA Centaur XPT using chemiluminescent technology.??Values obtained by using different assay methods cannot be used interchangeably. us Provider Outr Resulting Lab CHEMISTRY & BLOOD GA S ORDERABLES Final Result [facility] [address] [place] [address] documented in this encounter Visit Diagnoses Not on filedocumented in this encounter Care Teams Special Assets Officer Relationship Specialty Start Date End Date Ilya Barrera MD PCP - General 03/21/15 documented as of this encounter
--- OUTSIDE RECORDS SUMMARY | 2024-04-29 10:28 | XMS_ITS | Encounter Summary ---
Author Organization [facility] [place] [address] Care Team Providers Care Materials Director Name Role Phone Ilya Barrera MD Primary Care Provider [phone] Encounter Details Date Type Department Care Team (Late Contact Info) Description 05/09/2010 3:00 PM EST [place] [address] Arnaud Linda MD [facility] [place] [address] Discharge Disposition: Home Social History Tobacco Use [...] EST Office Visit Radiation Oncology at [address] [phone] Tyrese Fitzgerald MD [facility] [place] [address] documented as of this encounter Visit Diagnoses Not on filedocumented in this encounter Care Teams Materials Director Relationship Specialty Start Date End Date Ilya Barrera MD PCP - General 04/04/10 08/25/12 documented as of this encounter
--- OUTSIDE RECORDS SUMMARY | 2024-04-29 10:28 | XMS_ITS | Referral Summary ---
Author Organization [facility] Address [address] [place] [address] Care Team Providers Care Cost And Risk Analysis Manager Name Role Phone Ilya Barrera MD Primary Care Provider [phone] Social History Tobacco Use Types Packs/Day Years Used Date Smoking Tobacco: Never Assessed Sex and Gender Information Value Date Recorded Sex Assigned at Not on file Legal Sex Male 17:34 EST Gender Identity Not on file Sexual Orientation Not on file Plan of Treatment Not on file Insurance [employer] MEDICARE ACO [place] Care Teams Cost And Risk Analysis Manager Relationship Specialty Start Date End Date Ilay Barrera MD [phone] (work) PCP - General 03/21/15
--- OUTSIDE RECORDS SUMMARY | 2024-04-29 10:28 | XMS_ITS | Encounter Summary ---
Author Organization [facility] Address [facility] [place] [address] Care Team Providers Care Sales Performance Manager Name Role Phone Ilya Medina MD Primary Care Provider [phone] Encounter Details Date Type Department Care Team (Late st Contact Info) Description 04/19/2010 Orders Only Dermatology at [place] [address] [facility] [place] [address] Enoc Vázquez MD [address] [place] [address] Social History Tobacco Use Types Packs/Day Years [...] EST Office Visit Radiation Oncology at [address] [address] Tyrese Fitzgerald MD [facility] [place] [address] documented as of this encounter Procedures Procedure Name Priority Date/Time Associated Diagnosis Comments SURGICAL PATHOLOGY REPORT Routine 04/19/2010 6:37 PM EST documented in this encounter Results * Surgical Pathology Report (04/19/2010 6:37 PM EST) Surgical Pathology Report [id number] ? Location: [facility] The signing pathologist has (i) examined the relevant preparation(s) for the specimen(s) and (ii) rendered or confirmed the diagnosis(es). . ?Pathology Surgical Pathology Final Report Clinical Information Specimen Submitted: A - (R) lateral neck, excision Clinical History: Atypical melanocytic proliferation, [id number] for excision Clinical Diagnosis: Same Report to: Enoc Vázquez MD, III [facility] Dermatology [place], [place] ??[address] Gross Description Labeled/Fixativ e: ? 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 Drs. Crowder, Demetrio and Bonnie also examined the case and concur with the interpretation. [place] 04/19/2010 6:37 PM EST Enoc Vázquez MD PATHOLOGY/CYTOLOGY Pema OROSCO [place] documented in this encounter Visit Diagnoses Not on filedocumented in this encounter Care Teams Sales Performance Manager Relationship Specialty Start Date End Date Ilya Medina MD PCP - General 09/25/16 documented as of this encounter
--- OUTSIDE RECORDS SUMMARY | 2024-04-29 10:28 | XMS_ITS | Encounter Summary ---
Author Organization [facility] Address [address] [place] [address] Care Team Providers Care Maintenance Of Way Foreman Name Role Phone Unavailable Primary Care Provider Unavailabl e Encounter Details Date Type Department Care Team (Late st Contact Info) Description 2006 Results Only [facility] conversion [address] [place] [address] Jesse Sanchez MD [address] [place] [id number] Social History Tobacco Use Types Packs/Day Years [...] ? SUMAN WARNER ? Accession #: ? [id number] ? : ? 1955 (Age: 51) ??M [...] specimen is submitted intact as (C). ??(Becca Latif)/[facility] End of Report [facility] 2006 2006 11: 12 EST us Jesse Sanchez MD PATHOLOGY ORDERABLES Final Resul t [facility] [address] [place] [address] documented in this encounter Visit Diagnoses Not on filedocumented in this encounter
--- OUTSIDE RECORDS SUMMARY | 2024-04-29 10:28 | XMS_ITS | Encounter Summary ---
Author Organization [facility] Address [address] [place] [address] Care Team Providers Care Medical Technical Writer Name Role Phone Ilya Barrera MD Primary Care Provider [phone] Encounter Details Date Type Department Care Team (Late st Contact Info) Description 02/02/2021 Lab Requisition [facility] Pathology & Laboratory Medicine - [address] [address] Karri Trinidad MD [address] [place] [phone] Encounter for other general examination Social History [...] management options, if applicable. 02/06/2021 11:09 EDT [facility] Final Diagnosis A. LEFT MASTOID BOWL, DEBRIDEMENT/CURETTI NG: - Squamous cell carcinoma, invasive, well to moderately differentiated, keratinizing. See comment. 02/06/2021 11:09 [facility] Diagnosis Comment Sections show atypical surface squamous epithelium with irregular invasive islands of similar-appearing atypical keratinizing epithelium in the subepithelial stroma associated with a brisk chronic inflammatory response. The majority of the fragments are composed of invasive squamous cell carcinoma without normal appearing epithelium present. The exact depth cannot be determined based on the orientation of the fragments. Data Processing Operator slides of this case were reviewed at the intradepartmental consultation conference. This case was discussed with Dr. Karri Trinidad on February 06, 2021. 02/06/2021 11:09 [facility] Attestation There was significant resident/fellow involvement in the diagnostic evaluation of this case. By the signature below, the attending physician certifies that they have personally conducted a gross and/or microscopic examination of the described specimens and rendered or confirmed the above diagnosis. 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 Received in formalin labelled with proper patient identification (initials L, D) and L mastoid are three pale sharp-white irregular soft tissues with attached dark brown blood clot (0.2 x 0.1 x 0.1 cm to 0.1 x 0.1 by less than 0.1 cm). Entirely submitted in A1. Pranay Gilliam 02/02/2021 8:43 02/06/2021 11:09 [facility] Resident/Fell ow: Michael Georges DO 02/06/2021 11:09 [facility] Performing Lab [facility] 02/06/2021 11:09 [facility] Scanned Images 02/06/2021 11:09 [facility] Tissue INNER EAR STRUCTURE / Unknown 02/01/2021 11:05 EDT 02/02/2021 8:32 EDT us Karri Trinidad MD PATHOLOGY ORDERABLES Final Resul t [facility] [address] [place] [address] documented in this encounter Visit Diagnoses Diagnosis Encounter for other general examination documented in this encounter Care Teams Medical Technical Writer Relationship Specialty Start Date End Date Ilya Barrera MD PCP - General 03/21/15 documented as of this encounter
--- OUTSIDE RECORDS SUMMARY | 2024-04-29 10:28 | XMS_ITS | Encounter Summary ---
Author Organization [facility] [place] [address] Care Team Providers Care Delivery Driver/Customer Service Name Role Phone Unavailable Primary Care Provider Unavailabl e Encounter Details Date Type Department Care Team (Late st Contact Info) Description 03/31/2010 3:45 PM EST [place] [address] Arnaud Linda MD [facility] [place] [address] Social History Tobacco Use Types Packs/Day Years [...] EST Office Visit Radiation Oncology at [address] [address] Tyrese Fitzgerald MD [facility] [place] [address] documented as of this encounter Visit Diagnoses Not on filedocumented in this encounter
--- OUTSIDE RECORDS SUMMARY | 2024-04-29 10:28 | XMS_ITS | Encounter Summary ---
Author Organization [facility] Address [facility] [place] [address] Care Team Providers Care Catering Coordinator Name Role Phone Ilya Medina MD Primary Care Provider [phone] Encounter Details Date Type Department Care Team (Late st Contact Info) Description 03/13/2010 Orders Only Dermatology at [place] [address] [facility] [place] [address] Enoc Vázquez MD [address] [facility] [facility] [address] [address] [place] [address] Social History Tobacco Use Types Packs/Day Years [...] EST Office Visit Radiation Oncology at [address] [address] Tyrese Fitzgerald MD [facility] DR [place] [address] documented as of this encounter Procedures Procedure Name Priority Date/Time Associated Diagnosis Comments SURGICAL PATHOLOGY REPORT Routine 03/13/2010 5:54 PM EDT documented in this encounter Results * Surgical Pathology Report (03/13/2010 5:54 PM EDT) Surgical Pathology Report [id number] ? Location: [facility] The signing pathologist has (i) examined the relevant preparation(s) for the specimen(s) and (ii) rendered or confirmed the diagnosis(es). . ?Pathology Surgical Pathology Final Report Clinical Information Specimen Submitted: A - (R) lateral neck, punch Clinical History: Atypical approximately 1-cm pigmented patch Clinical Diagnosis: R/O MM Report to: Enoc Vázquez MD, III [facility] Dermatology [place], [place] ??[address] Gross Description Labeled/Fixative: ? R lateral neck, [...] and confirm Dr. Roc Jean-Baptiste's diagnosis. 03/15/10 [facility] 03/16/10 Verified by: ? Loco Crowder MD [...] on filedocumented in this encounter Care Teams Catering Coordinator Relationship Specialty Start Date End Date Ilya Medina MD PCP - General 09/25/16 documented as of this encounter
--- OUTSIDE RECORDS SUMMARY | 2024-04-29 10:28 | XMS_ITS | Encounter Summary ---
[place] [address] Care Team Providers Care School Psychologist Assistant Name Role Phone Ilya Barrera MD Primary Care Provider [phone] Reason for Visit * Reason Comments Skin Check 6 mo. Encounter Details Date Type Department Care Team (Late st Contact Info) Description 11/09/2010 8:30 AM EDT Office Visit Dermatology [facility] [address] [place], [place] [address] Enoc Vázquez MD [address] [facility] [place] [address] Atypical nevus (Primary Dx) Social History Tobacco [...] EST Office Visit Radiation Oncology at [address] [address] Tyrese Fitzgerald MD [facility] [place] [address] documented as of this encounter Visit Diagnoses Diagnosis Atypical nevus- Primary Benign neoplasm of skin, site unspecified documented in this encounter Care Teams School Psychologist Assistant Relationship Specialty Start Date End Date Ilya Barrera MD PCP - General 04/04/10 08/25/12 documented as of this encounter
--- OUTSIDE RECORDS SUMMARY | 2024-04-29 10:28 | XMS_ITS | Encounter Summary ---
Author Organization [facility] Address [facility] [place] [address] Care Team Providers Care Retail Team Member Name Role Phone Ilya Barrera MD Primary Care Provider [phone] Encounter Details Date Type Department Care Team (Late Contact Info) Description 04/19/2010 9:30 AM EST Office Visit Dermatology [address] [place] [address] [address] [place] [address] Enoc Vázquez MD [address] [place] [address], [facility] [place] [address] Social History Tobacco Use Types Packs/Day Years [...] EST Office Visit Radiation Oncology at [address] [phone] Tyrese Fitzgerald MD [facility] [place] [address] documented as of this encounter Visit Diagnoses Not on filedocumented in this encounter Care Teams Retail Team Member Relationship Specialty Start Date End Date Ilya Barrera MD PCP - General 04/04/10 08/25/12 documented as of this encounter
--- OUTSIDE RECORDS SUMMARY | 2024-04-29 10:28 | XMS_ITS | Encounter Summary ---
Author Organization [facility] Address [facility] [place] [address] Care Team Providers Care Home Care Specialist Name Role Phone Ilya Barrera MD Primary Care Provider [phone] Encounter Details Date Type Department Care Team (Late Contact Info) Description 04/19/2010 6:22 PM EST - 04/19/2010 11:59 PM EST [place] [address] Enoc Vázquez MD [address] [place] [address], [facility] [place] [address] Discharge Disposition: Home Social History Tobacco Use [...] EST Office Visit Radiation Oncology at [address] [address] Tyrese Fitzgerald MD [facility] [place] [address] documented as of this encounter Visit Diagnoses Not on filedocumented in this encounter Care Teams Home Care Specialist Relationship Specialty Start Date End Date Ilya Barrera MD PCP - General 04/04/10 08/25/12 documented as of this encounter
--- OUTSIDE RECORDS SUMMARY | 2024-04-29 10:28 | XMS_ITS | Encounter Summary ---
Author Organization [facility] Address [address] [place] [address] Care Team Providers Care Assembler For Puller Over Machine Name Role Phone Unavailable Primary Care Provider Unavailabl e Encounter Details Date Type Department Care Team (Late st Contact Info) Description 08/24/1999 Results Only [facility] - Maple conversion [address] [place] [address] Rufino Cuba MD [address] [place] [address] Social History Tobacco Use Types Packs/Day Years [...] ? SUMAN WARNER ? Accession #: ? [id number] ? : ? 1955 (Age: 44) ??M [...] also includes ? keratinous inclusion cyst. ??(Dr. Jama)/[facility] Document reviewed and electronically signed by: Conversion [...] submitted intact in one cassette. ??( ? [place]/[facility] ? End of Report [facility] 08/24/1999 15:4 7 EDT 08/24/1999 15:48 EDT us Rufino Cuba MD PATHOLOGY ORDERABLES Final Resul t [facility] [address] [place] [address] documented in this encounter Visit Diagnoses Not on filedocumented in this encounter
--- OUTSIDE RECORDS SUMMARY | 2024-04-29 10:28 | XMS_ITS | Encounter Summary ---
Author Organization [facility] [place] [address] Care Team Providers Care Hotel Attendant Name Role Phone Unavailable Primary Care Provider Unavailabl e Encounter Details Date Type Department Care Team (Late st Contact Info) Description 03/20/2010 1:15 PM EST Office Visit Dermatology [address] [facility] [address] [place] [address] Enoc Vázquez MD [address] [place] [address], [facility] [place] [address] Social History Tobacco Use Types Packs/Day Years [...] EST Office Visit Radiation Oncology at [address] [address] Tyrese Fitzgerald MD [facility] [address] documented as of this encounter Visit Diagnoses Not on filedocumented in this encounter
--- OUTSIDE RECORDS SUMMARY | 2024-04-29 10:28 | XMS_ITS | Encounter Summary ---
Author Organization [facility] [place] [address] Care Team Providers Care Director Of Food And Nutrition Name Role Phone Ilya Barrera MD Primary Care Provider [phone] Encounter Details Date Type Department Care Team (Late Contact Info) Description 03/13/2010 [place] [address] Enoc Pathak MD [address] [place] [address], [facility] [place] [address] Social History Tobacco Use Types Packs/Day Years [...] EST Office Visit Radiation Oncology at [address] [address] Tyrese Fitzgerald MD [facility] [place] [address] documented as of this encounter Procedures Procedure Name Priority Date/Time Associated Diagnosis Comments SURGICAL PATHOLOGY REPORT Routine 03/13/2010 5:54 PM EDT documented in this encounter Results * PATHOLOGY SURGICAL PATHOLOGY FINAL REPORT (03/13/2010 5:54 PM EDT) Surgical Pathology Report ? [facility] ? Provider: ?? ENOC PATHAK ?? Pt. Name: ?? SUMAN WARNER ? Acc #: ?[id number] ? Pt. ? Col Date: ?? 03/13/2010 [...] lateral neck, punch ? Clinical History: ? [facility] ? Provider: ?? ENOC PATHAK ?? Pt. Name: ?? SUMAN WARNER ? Acc #: ?[id number] ? Pt. ? Col Date: ?? 03/13/2010 ? /Sex: ?1955,(54 years),Male ? Rec Date: ?? 03/14/2010 ? LOC: ?[facility] ? SURGICAL PATHOLOGY ? Atypical approximately 1-cm pigmented patch ? Clinical Diagnosis: ? R/O MM ? Report to: ? Enoc Pathak MD, III ? [facility] ? Dermatology ? [place], [place] ??[address] [place] 03/13/2010 5:54 PM EDT Enoc Pathak MD PATHOLOGY/CYTOLOGY O RDERABLES [place] documented in this encounter Visit Diagnoses Not on filedocumented in this encounter Care Teams Director Of Food And Nutrition Relationship Specialty Start Date End Date Ilya Barrera MD PCP - General 04/04/10 08/25/12 documented as of this encounter
--- OUTSIDE RECORDS SUMMARY | 2024-04-29 10:28 | XMS_ITS | Encounter Summary ---
Author Organization [facility] Address [address] [place] [address] Care Team Providers Care Head Insulation Board Saw Operator Name Role Phone Ilya Barrera MD Primary Care Provider [phone] Encounter Details Date Type Department Care Team (Late st Contact Info) Description 02/09/2021 Lab Requisition [facility] Pathology & Laboratory Medicine - [address] [address] Outr Resulting Lab, Provider Social History Tobacco [...] Neg and Giardia Antigen Neg 12:13 EDT [facility] Feces SPECIMEN FROM RECTUM / Unknown 02/09/2021 9:45 EDT 02/09/2021 22:10 EDT us Provider Outr Resulting Lab MICROBIOLOGY - GENER AL ORDERABLES Final Result [facility] [address] [place] [address] documented in this encounter Visit Diagnoses Not on filedocumented in this encounter Care Teams Head Insulation Board Saw Operator Relationship Specialty Start Date End Date Ilya Barrera MD PCP - General 03/21/15 documented as of this encounter
--- OUTSIDE RECORDS SUMMARY | 2024-04-29 10:28 | XMS_ITS | Encounter Summary ---
[facility] [place] [address] Care Team Providers Care Training Generalist Name Role Phone Ilya Barrera MD Primary Care Provider [phone] Encounter Details Date Type Department Care Team (Late Contact Info) Description 07/13/2010 1:30 PM EST Office [place] [address] Jose Pelaez III, MD [facility] [address] Discharge Disposition: Home Social History Tobacco Use [...] EST Office Visit Radiation Oncology at [address] [address] Tyrese Fitzgerald MD [facility] [place] [address] documented as of this encounter Visit Diagnoses Not on filedocumented in this encounter Care Teams Training Generalist Relationship Specialty Start Date End Date Ilya Barrera MD PCP - General 04/04/10 08/25/12 documented as of this encounter
--- OUTSIDE RECORDS SUMMARY | 2024-04-29 10:28 | XMS_ITS | Encounter Summary ---
Author Organization [facility] [place] [address] Care Team Providers Care Physical Therapy Director Name Role Phone Unavailable Primary Care Provider Unavailabl e Encounter Details Date Type Department Care Team (Late Contact Info) Description 03/13/2010 4:15 PM EDT Office Visit Dermatology [address] [place] [address] Enoc Vázquez MD [address] [place] [address], [facility] [place] [address] Social History Tobacco Use Types Packs/Day Years [...] EST Office Visit Radiation Oncology at [address] [address] Tyrese Fitzgerald MD [facility] [place] [address] documented as of this encounter Visit Diagnoses Not on filedocumented in this encounter
--- OUTSIDE RECORDS SUMMARY | 2024-04-29 10:28 | XMS_ITS | Encounter Summary ---
Author Organization [facility] [place] [address] Care Team Providers Care Seat Scooper Machine Name Role Phone Ilya Barrera MD Primary Care Provider [phone] Encounter Details Date Type Department Care Team (Late Contact Info) Description 04/19/2010 [place] [address] Enoc Pathak MD [address] [place] [address], [facility] [place] [address] Social History Tobacco Use Types Packs/Day Years [...] EST Office Visit Radiation Oncology at [address] [address] Tyrese Fitzgerald MD [facility] [place] [address] documented as of this encounter Procedures Procedure Name Priority Date/Time Associated Diagnosis Comments SURGICAL PATHOLOGY REPORT Routine 04/19/2010 6:37 PM EST documented in this encounter Results * PATHOLOGY SURGICAL PATHOLOGY FINAL REPORT (04/19/2010 6:37 PM EST) Surgical Pathology Report ? [facility] ? Provider: ?? ENOC PATHAK ?? Pt. Name: ?? SUMAN WARNER ? Acc #: ?[id number] ? Pt. ? Col Date: ?? 04/19/2010 [...] residual findings are similar to biopsy ? [id number], and in our opinion, stop just short [...] ? ---Clinical Information--- ? Specimen Submitted: ? [facility] ? Provider: ?? ENOC PATHAK ?? Pt. Name: ?? SUMAN WARNER ? Acc #: ?[id number] ? Pt. ? Col Date: ?? 04/19/2010 ? /Sex: ?1955,(54 years),Male ? Rec Date: ?? 04/19/2010 ? LOC: ?[facility] ? SURGICAL PATHOLOGY ? A - (R) lateral neck, excision ? Clinical History: ? Atypical melanocytic proliferation, [id number] for excision ? Clinical Diagnosis: ? Same ? Report to: ? Enoc Pathak MD, III ? [facility] ? Dermatology ? . [place], [place] [address] [address] [place] 04/19/2010 6:37 PM EST Enoc Pathak MD PATHOLOGY/CYTOLOGY O RDERABLES [facility] [place] documented in this encounter Visit Diagnoses Not on filedocumented in this encounter Care Teams Seat Scooper Machine Relationship Specialty Start Date End Date Ilya Barrera MD PCP - General 04/04/10 08/25/12 documented as of this encounter
--- OUTSIDE RECORDS SUMMARY | 2024-04-29 10:28 | XMS_ITS | Encounter Summary ---
Author Organization [facility] Address [facility] [place] [address] Care Team Providers Care State Highway Police Officer Name Role Phone Ilya Barrera MD Primary Care Provider [phone] Encounter Details Date Type Department Care Team (Late Contact Info) Description 05/01/2010 11:30 AM EST Office Visit Dermatology [address] [place] [address] [address] [place] [address] Enoc Vázquez MD [address] [place] [address], [facility] [place] [address] Social History Tobacco Use Types Packs/Day Years [...] EST Office Visit Radiation Oncology at [address] [id number] Tyrese Fitzgerald MD [facility] [place] [address] documented as of this encounter Visit Diagnoses Not on filedocumented in this encounter Care Teams [employer] Police Officer Relationship Specialty Start Date End Date Ilya Barrera MD PCP - General 04/04/10 08/25/12 documented as of this encounter
--- OUTSIDE RECORDS SUMMARY | 2024-04-29 10:28 | XMS_ITS | Encounter Summary ---
Author Organization [facility] Address [address] [place] [address] Care Team Providers Care Management Planner Name Role Phone Ilya Barrera MD Primary Care Provider [phone] Encounter Details Date Type Department Care Team (Late st Contact Info) Description 05/20/2023 Lab Requisition [facility] Pathology & Laboratory Medicine - [facility] [address] [place] [address] Arvind Hubbard MD [address] [place] [address], [address] [place], [place] [address] Encounter for other general examination Social History [...] management options, if applicable. 05/22/2023 15:25 EST [facility] Final Diagnosis A. COLON, 100 CM, POLYP, BIOPSY: - Tubular adenoma. B. COLON, 80 CM, POLYP, BIOPSY: - Tubular adenoma. C. COLON, 75 CM, POLYP, BIOPSY: - Tubular adenoma fragments. D. COLON, 55 CM, POLYP, BIOPSY: - Tubular adenoma. 05/22/2023 15:25 [facility] Attestation There was significant resident/fellow involvement in the diagnostic evaluation of this case. By the signature below, the attending physician certifies that they have personally conducted a gross and/or microscopic examination of the described specimens and rendered or confirmed the above diagnosis. 05/22/2023 15:25 [facility] at 1525 Clinical History H/O colon polyp 05/22/2023 15:25 [facility] Gross Description A. Received [...] D1. YUE PRATT(ASCP) 05/20/2023 17:28 05/22/2023 15:25 [facility] Resident/Brian w: Da Narvaez MD 05/22/2023 15:25 [facility] Performing Lab [facility] 05/22/2023 15:25 [facility] Scanned Images 05/22/2023 15:25 EST [facility] Tissue COLON STRUCTURE / Unknown 05/20/2023 9:06 EST 05/20/2023 16:26 EST Tissue specimen (specimen) COLON STRUCTURE / Unknown 05/20/2023 9:06 EST 05/20/2023 16:26 EST Tissue specimen (specimen) COLON STRUCTURE / Unknown 05/20/2023 9:06 EST 05/20/2023 16:26 EST Tissue specimen (specimen) COLON STRUCTURE / Unknown 05/20/2023 9:06 EST 05/20/2023 16:26 EST us Arvind Hubbard MD PATHOLOGY ORDERABLES Final Resu lt [facility] [address] [place] [address] documented in this encounter Visit Diagnoses Diagnosis Encounter for other general examination documented in this encounter Care Teams Management Planner Relationship Specialty Start Date End Date Ilya Barrera MD PCP - General 03/21/15 documented as of this encounter
[2024-04-29 15:17] LABS: Hemoglobin A1C 7.7 % (<5.7)
[2024-04-29 15:31] LABS: Anion Gap 5.9 mmol/L (3-11); BUN 16 mg/dL (7-18); CO2 29.1 mmol/L (21.0-32.0); CREATININE 1.1 mg/dL (0.70-1.30); Calcium 9.3 mg/dL (8.5-10.1); Chloride 103 mmol/L (98-107); Estimated GFR 73.58 (mL/min/1.73m2); Glucose 295 mg/dL (74-106); Potassium 5.2 mmol/L (3.5-5.1); Sodium 138 mmol/L (136-145); TSH (W/Ref FT4) 1.74 uIU/mL (0.36-3.74)
== END 2024-04-29 10:19 | disposition home or self-care (01) ==
LOC: NCHCN 10:18
PROVIDERS: PCP Nurse Practitioner Family; Visit Provider Nurse Practitioner Family
DX: E11.9 Type 2 diabetes mellitus without complications (principal); I10 Essential (primary) hypertension
CPT/HCPCS: 80048; 83036; 84443

== ENCOUNTER 2024-05-11 01:19 | Outpatient (CLI) | payer MEDICARE, SELFPAY ==
--- NOTE | 2024-05-11 | ETT_ITS ---
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 Rest Stress HR Resting HR Supine: 64 bpm Max Heart Rate (APMHR): 153 bpm Resting HR Standin bpm Target HR (85% APMHR): 130 bpm Max HR Achieved: 141 bpm % of APMHR: 92 Recovery HR: 75 bpm HR response to stress: Normal HR response to stress BP Resting BP Supine: 126/82 mmHg Resting BP Standin/92 mmHg Max BP: 250/104 mmHg Recovery BP: 130/98 mmHg BP response to stress: Abnormal hypertensive response to stress. ECG Resting ECG: Sinus Rhythm Ectopy: none Stress ECG: Sinus Tachycardia ST Change: No significant ST segment changes noted Arrhythmia: occasional PACs, occasional PVCs Recovery ECG: Sinus Rhythm Recovery ST Change: No significant ST segment changes noted Recovery Arrhythmia: frequent PACs, trigeminy, rare PVCs Clinical Reason for Termination: Target HR Achieved Stress Symptoms: General Fatigue Exercise duration: 06 min22 sec Highest Stage Reached: Stage 3: 3.4 mph at 14% grade. Exercise capacity: 7.61 METs Angina Score: None Rate Pressure Product: [id number] Stress ECG Conclusion 1. Resting electrocardiogram showed poor R wave progression 2. Patient exercised on the Dada protocol and completed a workload of 7.61 METS, stopping due to fat igue 3. Hypertensive blood pressure response to exercise. Normal heart rate response to exercise. Hema t achieved 92% of maximal predicted heart rate for age 4. There was no electrocardiographic evidence of myocardial ischemia 5. Atrial and ventricular ectopy was noted
== END 2024-05-11 01:39 ==
PROVIDERS: PCP Nurse Practitioner Family; Visit Provider Nurse Practitioner Family
DX: I10 Essential (primary) hypertension; I49.3 Ventricular premature depolarization
CPT/HCPCS: 93016; 93018; 93017

== ENCOUNTER 2024-07-02 00:41 | Outpatient (CLI) | payer MEDICARE, SELFPAY ==
--- NOTE | 2024-07-02 07:00 | DI.RAD_ITS ---
Exam(s) XR FOOT LT COMPLETE EXAM: XR FOOT LT COMPLETE CLINICAL HISTORY: Left foot pain,m79.672. TECHNIQUE: 2D digital imaging was performed of the left foot. Three images were obtained. AP, obli que and lateral views were obtained. COMPARISON: There are no priors for comparison. FINDINGS: BONES: No acute fracture is present. No bony destructive lesion is seen. There is an enthesophyte at the posterior calcaneus. JOINTS: No dislocation present. There are degenerative changes seen in the foot, particularly at the 1st MTP joint. There is an osteophyte seen at the dorsum of the head of the 1st metatarsal bone. SOFT TISSUE: Normal. IMPRESSION: No acute abnormality. Chronic changes of the left foot. DATA REPOSITORY: RADIATION DOSE DELIVERED:
== END 2024-07-02 01:01 ==
LOC: DI 00:41
PROVIDERS: PCP Nurse Practitioner Family; Visit Provider Podiatrist
DX: M19.072 Primary osteoarthritis, left ankle and foot (principal)
CPT/HCPCS: 73630

== ENCOUNTER → 2024-08-31 14:00 | Outpatient (BNVA) | payer MEDICARE, SELFPAY | PROVIDERS: PCP Nurse Practitioner Family; Referring Provider Nurse Practitioner Family; Visit Provider Nurse Practitioner Gerontology | DX: N40.1 Benign prostatic hyperplasia with lower urinary tract symptoms (principal); N13.8 Other obstructive and reflux uropathy; R32 Unspecified urinary incontinence; R39.9 Unspecified symptoms and signs involving the genitourinary system | CPT/HCPCS: 51798; 99213 ==

== ENCOUNTER 2024-09-14 12:08 | Outpatient (REF) | payer MEDICARE, SELFPAY ==
[2024-09-14 17:24] LABS: COMMENT (LAB VIEW ONLY) 71.62 mg/dL; Microalb ug/mg Crea 8.9 ug/mg Cr
== END 2024-09-14 12:09 | disposition home or self-care (01) ==
LOC: NCHCN 12:08
PROVIDERS: PCP Nurse Practitioner Family; Visit Provider Nurse Practitioner Family
DX: E11.8 Type 2 diabetes mellitus with unspecified complications (principal)
CPT/HCPCS: 82043; 82570

== ENCOUNTER 2024-10-26 18:31 | Outpatient (REF) | payer MEDICARE, SELFPAY | END 2024-10-26 18:32 | disposition home or self-care (01) | LOC: LBN 18:31 | PROVIDERS: PCP Nurse Practitioner Family; Visit Provider Physician Assistant | DX: N39.0 Urinary tract infection, site not specified (principal) | CPT/HCPCS: 87086 ==

== ENCOUNTER 2024-10-26 19:27 | Emergency (ER) | payer MEDICARE, SELFPAY ==
[2024-10-26] VITALS (10 sets, daily range): BP systolic 152–214; BP diastolic 93–113; PULSE 64–90; RESP 16–18; TEMP 36.9; O2SAT 92–99
[2024-10-26 20:02] LABS: Abs Immature Grans 0.02 10^3/uL (0.0-0.06); Absolute Basophil Count 0.04 10^3/uL (0.0-0.2); Absolute Eosinophil Count 0.18 10^3/uL (0.0-0.7); Absolute Lymphocyte Count 1.62 10^3/uL (1.2-3.4); Absolute Monocyte Count 0.41 10^3/uL (0.1-0.8); Basophils % 0.7 %; Eosinophils % 3.3 %; HCT 48.8 % (40.0-50.0); HGB 17.1 g/dL (13.5-17.5); Immature Grans % 0.4 %; Lymphocytes % 29.6 %; MCH 31.4 pg (27.0-33.0); MCV 90 fL (80-95); MPV 10.3 fL (8.0-11.0); Monocytes % 7.5 %; Neutrophils % 58.5 %; Platelet Count 199 10^3/uL (130-400); RBC 5.44 10^6/uL (4.36-5.78); RDW 12.4 % (11.8-14.1); RDW-SD 40.4 fL; WBC 5.47 10^3/uL (4.4-10.8)
[2024-10-26 20:17] LABS: ALT 51 U/L (16-63); AST 25 U/L (15-37); Alkaline Phosphatase 96 U/L (46-116); Anion Gap 6.4 mmol/L (3-11); BUN 18 mg/dL (7-18); Bilirubin, Total 1.4 mg/dL (0.2-1.0); CO2 31.6 mmol/L (21.0-32.0); Calcium 9.2 mg/dL (8.5-10.1); Chloride 100 mmol/L (98-107); Estimated GFR 81.98 (mL/min/1.73m2); Glucose 244 mg/dL (74-106); Potassium 4.4 mmol/L (3.5-5.1); Sodium 138 mmol/L (136-145); Total Protein 7.1 g/dL (6.4-8.2)
--- NOTE | 2024-10-26 20:18 | DI.CT_ITS ---
Exam(s) CT RENAL COLIC WO EXAM: CT RENAL COLIC WO CLINICAL HISTORY: left flank pain. TECHNIQUE: Imaging Protocol: Axial computed tomography images with coronal and sagittal reformatted images were created and reviewed. COMPARISON: CT CT ABDOMEN PELVIS WO from 06/17/2023 FINDINGS: ABDOMEN: Lung Bases: Normal where visualized. Liver: There is diffuse decreased attenuation of the liver consistent with fatty infiltration. No measurable mass. Gallbladder and biliary tract: No radiodense calculus or biliary ductal dilation. Pancreas: Normal density, no abnormal calcifications or inflammatory process. Spleen: Normal. Kidneys: Normal size, contour and axis.No radiodense stones or obstructive uropathy. There is an 8 mm fat density lesion in the right kidney most consistent with a benign lesion such as an angiomyolipoma. Adrenal glands: No mass is seen. Lymph nodes: Within normal limits. Abdominal Aorta: Abdominal portion non-dilated. Atherosclerotic calcification is present. PELVIS: Bladder:Symmetric distention, no gross wall thickening. Bowel: There are few diverticula in the colon but no evidence of acute diverticulitis. Appendix is unremarkable. There is no evidence of bowel obstruction or bowel wall thickening. Peritoneal cavity: No ascites, collection or mesenteric inflammatory response. No free air. Reproductive organs: Unremarkable as visualized. Bones: Within normal limits. Soft Tissues: There are small bilateral fat containing inguinal hernias. IMPRESSION: 1. No evidence of nephrolithiasis or hydronephrosis. 2. Colonic diverticulosis without evidence of acute diverticulitis. 3. No acute abdominal or pelvic process. 4. The preliminary [facility] report was reviewed. RADIATION DOSE DELIVERED: 920.74mGy.cm Total DLP DATA REPOSITORY: All CT scans at this facility are submitted to the National Radiology Data Registry (NRDR) Dose Index Registry (DIR) with the [employer] (A[employer]). RADIATION OPTIMIZATION: All CT scans at this facility use at least one of these dose optimization techniques: automated exposure control; mA and/or kV adjustment per patient size (includes targeted exams where dose is matched to clinical indication); or iterative reconstruction.
[2024-10-26] MEDS: Ketorolac 30 MG/ML VIAL IVP (20:28)
[2024-10-26] MEDS: Normal Saline 1,000 ML 1000 ML IV (20:29)
[2024-10-26] MEDS: ACETAMINOPHEN 1,000 MG/100 ML BAG 400 MG IVPB (20:29)
[2024-10-26 20:38] LABS: Bilirubin Negative (Negative); Blood Negative (Negative); Clarity Clear (Clear); Glucose >=1000 mg/dL (Negative); Ketones Trace mg/dL (Negative); Leukocyte Esterase Negative (Negative); Nitrite Negative (Negative); Urobilinogen 0.2 mg/dL (Up to 0.2); pH 5.5 (5-8)
[2024-10-26 20:46] LABS: Bacteria Rare HPF (Negative); C & S Indicated? No; Casts Negative LPF (Negative); Crystals Negative HPF (Negative); Epithelial Cells Rare HPF (Negative); Mucus Negative (Negative); RBC 0-2 HPF (0-2); WBC Negative HPF (0-5)
--- NOTE | 2024-10-26 21:11 | DI.[facility]_ITS ---
PROCEDURE INFORMATION: Exam: CT Abdomen And Pelvis Without Contrast Exam date and time: 10/26/2024 8:09 PM Age: 69 years old Clinical indication: Other: Left flank pain; HX kidney stones TECHNIQUE: Imaging protocol: Computed tomography of the abdomen and pelvis without contrast. COMPARISON: CT ABDOMEN PELVIS WO 06/17/2023 10:43 AM FINDINGS: Liver: Normal. Gallbladder and biliary ducts: Normal Pancreas: Normal. Spleen: Normal. Adrenal glands: Normal. No mass. Kidneys and ureters: 9 mm fat attenuation focus within the anterior aspect of the right renal midpole, compatible with angiomyolipoma. Stomach and bowel: Colonic diverticulosis. Mild distension of the stomach with ingested contents. Appendix: Appendix normal. Intraperitoneal space: Increased attenuation of the mesenteric root fat, likely incidental, unchanged. Vasculature: Atherosclerotic disease of the abdominal aorta and iliac arteries. Phleboliths within the pelvis. Lymph nodes: Unremarkable. No enlarged lymph nodes. Urinary bladder: Unremarkable as visualized. Reproductive: Unremarkable as visualized. Bones/joints: Multilevel thoracolumbar spine degenerative disc space narrowing and osteophyte formation. Soft tissues: Small bilateral fat containing inguinal hernias. IMPRESSION: No acute abdominal or pelvic abnormality. Dictated and Authenticated by: Milton Emanuel MD. Orderin Juancho Cho MD
[2024-10-26] MEDS: Methocarbamol 500 MG TAB 1000 MG PO (21:33)
[2024-10-26] MEDS: Lidocaine 5% Patch 1 PATCH TP (21:33)
--- NOTE | 2024-10-26 22:30 | W.ED.GENAD ---
Discharge Plan Disposition Patient Disposition: Home Condition: Stable Discharge Details Clinical Impression: Lower back pain Primary Care Provider: LETICIA QUINTERO ED Provider: Jeanne Dawkins Home Meds and New Rx's Prescriptions: New methocarbamol 750 mg tablet 750 mg PO TID Qty: 20 0RF lidocaine [Lidoderm] 5 % adhesive patch,medicated 1 patch topical DAILY Qty: 15 0RF Rx Instructions: leave on most painful area for up to 12 hrs No Action rabeprazole 20 mg tablet,delayed release (DR/EC) 20 mg PO DAILY atorvastatin 20 mg tablet 20 mg PO DAILY vitamin B complex [B Complex-Vitamin B12] Tablet 1 tab PO DAILY loperamide 2 mg capsule 2 mg PO DAILY metformin 500 mg tablet 1,000 mg PO BID dorzolamide-timolol (PF) 2-0.5 % drops 1 drp ophthalmic (eye) BID losartan 25 mg tablet 25 mg PO DAILY brimonidine-timolol [Combigan] 5 ML drops 1 drp Ophthalmic Q12H PRN ibuprofen 800 mg Tablet 800 mg PO Q6H PRN acetaminophen 500 mg Tablet 1,000 mg PO Q6H PRN Discharge Instructions Additional Instructions: Blood work, urinalysis and CT imaging did not reveal any acute abnormality. No signs of kidney infection, bowel obstruction or infection, kidney stone. Please continue Motrin and Tylenol for pain additional prescriptions have been sent to the pharmacy. Please follow-up with your primary care provider for reevaluation of any ongoing pain symptoms. HPI General Date/Time Provider Initiated Documentation: 10/26/24 19:38. Limitations to Documentation: no limitations. Information obtained by: patient. HPI Narrative: 69-year-old gentleman with past medical history of hypertension, diabetes presents for evaluation of left lower back pain. He reports that symptoms have been ongoing for the last 5 days. Fairly constant, does not radiate, not associated with hematuria, dysuria, urgency or frequency. No fever nausea vomiting. No pain in front of his abdomen. Reports that the pain is lower down on the left near his reports that he went to urgent care and was told that he did not have a urine infection and was referred for outpatient renal ultrasound but he cannot get that scheduled until next week so he came Here tonight because his symptoms were not improved. Related Data Home Medications ?Medication ?Instructions ?Recorded ?Confirmed brimonidine 0.2 %-timolol 0.5 % 1 drp ophthalmic (eye) Q12H PRN 01/13/15 10/26/24 eye drops (Combigan) acetaminophen 500 mg tablet 1,000 mg PO Q6H PRN 05/10/20 10/26/24 ibuprofen 800 mg tablet 800 mg PO Q6H PRN 05/10/20 10/26/24 atorvastatin 20 mg tablet 20 mg PO DAILY 12/29/20 10/26/24 rabeprazole 20 mg tablet,delayed 20 mg PO DAILY 12/29/20 10/26/24 release vitamin B complex (B 1 tab PO DAILY 03/14/21 10/26/24 Complex-Vitamin B12 tablet) loperamide 2 mg capsule 2 mg PO DAILY 08/08/21 10/26/24 dorzolamide 2 %-timolol 0.5 % (PF) 1 drp ophthalmic (eye) BID 07/02/24 10/26/24 eye drops metformin 500 mg tablet 1,000 mg PO BID 07/02/24 10/26/24 losartan 25 mg tablet 25 mg PO DAILY 08/31/24 10/26/24 lidocaine 5 % topical patch 1 patch topical DAILY #15 ea 10/26/24 (Lidoderm) methocarbamol 750 mg tablet 750 mg PO TID #20 tabs 10/26/24 Previous Rx's ?Medication ?Instructions ?Recorded lidocaine 5 % topical patch 1 patch topical DAILY #15 ea 10/26/24 (Lidoderm) methocarbamol 750 mg tablet 750 mg PO TID #20 tabs 10/26/24 Allergies Allergy/AdvReac Type Severity Reaction Status Date / Time lisinopril AdvReac Intermediate Other (See Verified 10/26/24 19:39 Comment) General Stated Complaint: FlankPain JUSTINO: 3 Exam Narrative Exam Narrative: Review of Systems: All systems reviewed & are unremarkable except as noted in HPI and below Well-developed, no acute distress NCAT RRR, no murmur Unlabored respiratory effort, clear bilaterally Nondistended abdomen , soft nontender, no CVA tenderness no midline back tenderness step-off or deformity Localizes the pain to the upper buttock no focal neurologic deficits normal gait Appropriate mood and affect Course Vital Signs Vital signs: Vital Signs Temperature 36.9 C 10/26/24 19:33 Pulse 76 10/26/24 19:33 Respiratory Rate 18 10/26/24 19:33 Blood Pressure 214/113 H 10/26/24 19:33 Pulse Oximetry 98 10/26/24 19:33 Temperature 36.9 C 10/26/24 19:33 Temperature Source Tympanic 10/26/24 19:33 Pulse 70 10/26/24 21:56 Respiratory Rate 16 10/26/24 21:56 Blood Pressure 152/97 H 10/26/24 21:56 Blood Pressure Mean 121 10/26/24 21:10 Blood Pressure Position Sitting 10/26/24 19:33 Pulse Oximetry 98 10/26/24 21:56 Oxygen Delivery Method Room Air 10/26/24 19:33 Oxygen Flow Rate 0 10/26/24 19:33 Pain Level 8 10/26/24 20:39 Lab/Test Results Lab/Test Results: Laboratory Tests Range/Units 10/26/24 10/26/24 19:48 20:20 WBC (4.4-10.8) 10^3/uL 5.47 RBC (4.36-5.78) 10^6/uL 5.44 Hgb (13.5-17.5) g/dL 17.1 Hct (40.0-50.0) % 48.8 MCV (80-95) fL 90 MCH (27.0-33.0) pg 31.4 MCHC (32.0-36.0) % 35.0 RDW (11.8-14.1) % 12.4 Plt Count (130-400) 10^3/uL 199 MPV (8.0-11.0) fL 10.3 Immature Gran % % 0.4 Neutrophils % % 58.5 Lymphocytes % % 29.6 Monocytes % % 7.5 Eosinophils % % 3.3 Basophils % % 0.7 Nucleated RBC % (0.0-0.3) % 0.0 Absolute Neutrophils (1.2-6.7) 10^3/uL 3.20 Absolute Lymphocytes (1.2-3.4) 10^3/uL 1.62 Absolute Monocytes (0.1-0.8) 10^3/uL 0.41 Absolute Eosinophils (0.0-0.7) 10^3/uL 0.18 Absolute Basophils (0.0-0.2) 10^3/uL 0.04 Sodium (136-145) mmol/L 138 Potassium (3.5-5.1) mmol/L 4.4 Chloride (98-107) mmol/L 100 Carbon Dioxide (21.0-32.0) mmol/L 31.6 Anion Gap (3-11) mmol/L 6.4 BUN (7-18) mg/dL 18 Creatinine (0.70-1.30) mg/dL 1.0 Est GFR (CKD-EPI 2020) (mL/min/1.73m2) 81.98 Glucose (74-106) mg/dL 244 H Calcium (8.5-10.1) mg/dL 9.2 Total Bilirubin (0.2-1.0) mg/dL 1.4 H AST (15-37) U/L 25 ALT (16-63) U/L 51 Alkaline Phosphatase (46-116) U/L 96 Total Protein (6.4-8.2) g/dL 7.1 Albumin (3.4-5.0) g/dL 4.0 Urine Color (Yellow) Yellow Urine Clarity (Clear) Clear Urine pH (5-8) 5.5 Ur Specific [place] (1.005-1.025) 1.020 Urine Protein (Neg-Trace) mg/dL Negative Urine Ketones (Negative) mg/dL Trace H Urine Blood (Negative) Negative Urine Nitrite (Negative) Negative Urine Bilirubin (Negative) Negative Urine Urobilinogen (Up to 0.2) mg/dL 0.2 Ur Leukocyte Esterase (Negative) Negative Urine RBC (0-2) HPF 0-2 Urine WBC (0-5) HPF Negative Ur Epithelial Cells (Negative) HPF Rare Urine Crystals (Negative) HPF Negative Urine Bacteria (Negative) HPF Rare Urine Casts (Negative) LPF Negative Urine Mucus (Negative) Negative Ur Culture Indicated? No Urine Glucose (Negative) mg/dL >=1000 H Medical Decision Making Emergent evaluation of left ankle includes metabolic, musculoskeletal pain, doubt intra-abdominal etiology. Patient's blood pressure felt to be elevated but this quickly improved in the room. Urinalysis did not demonstrate any signs of blood or infection. He does have significant amount of glucose in his urine. There is no leukocytosis or anemia. There is no evidence of DKA. CT imaging was obtained to evaluate for possible renal colic, however there is no kidney stone or other acute intra-abdominal abnormality. I suspect this on the location of the pain that is not secondary to renal colic as he suspected but likely musculoskeletal yet.. He was referred provided with Robaxin and a Lidoderm patch. Recommend continuation of this treatment and gentle range of motion stretching. I recommend close follow-up with PCP for reevaluation of any ongoing symptoms. PFSH All Active Problems (Updated 10/26/24 @ 21:57 by Jeanne Dawkins MD) Lower back pain (Acute) Perforation of right tympanic membrane (Acute) Otitis media, right (Acute) Degenerative joint disease of both ankles and feet (Acute) Hallux rigidus, bilateral (Acute) Gagging episode (Acute) Tubular adenoma of colon (Acute ~05/20/23) Screening for colorectal cancer (Acute) Glaucoma (Chronic) Obesity (Chronic) Obstructive sleep apnea (Chronic) Diabetes mellitus (Chronic) Headache, cluster (Acute) Chronic diarrhea (Acute) Mild memory disturbance (Acute) Wears hearing aid in right ear (Acute) Raynauds disease (Acute) GERD (gastroesophageal reflux disease) (Chronic) Type 2 diabetes mellitus (Acute) BPH w urinary obs/LUTS (Acute) Right foot infection (Acute) Tendinitis of both rotator cuffs (Acute 01/12/15) Medical History Depression Anal and rectal polyp DJD (degenerative joint disease) Head and neck cancer 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 Pulsatile tinnitus, right ear 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 Myringitis Anxiety High cholesterol HTN (hypertension) Impacted cerumen, right ear Infection of left mastoid bowl Bilateral hearing loss due to cerumen impaction Mixed hearing loss, bilateral (09/13/16) Chronic mastoiditis, left ear (09/13/16) Surgical History History of colonoscopy (~05/2023) path sent History of ear surgery ossicular reposition History of mastoidectomy Bilateral (left 1968, right 1999), right ossiculoplasty History of tonsillectomy and adenoidectomy Family History Father Cancer brain Mother Cancer lung Emphysema, unspecified Social History Smoking/Tobacco Use Status: Never Smoking risk assessment performed?: Yes Alcohol Intake: never Drug use: Never Substance use type: does not use Housing: house Pets and animals: Yes Pets and animals: dog(s) Current gender identity: male Do you feel safe at home: Yes Do you feel safe in your relationship?: Yes
--- NOTE | 2024-10-27 09:52 | NUR.NOTE ---
Addendum entered by Zoe Abarca 10/27/24 10:01: A second prior authorization for lidocaine 5% patches was also faxed for review. Original Note: Access chart to get the PCP to fax prior authorization for methocarbamol 750mg tablets for review. Nursing Note:
== END 2024-10-26 22:01 | disposition home or self-care (01) ==
PROVIDERS: Emergency Provider Emergency Medicine; PCP Nurse Practitioner Family
DX: M54.50 Low back pain, unspecified (principal); I10 Essential (primary) hypertension; E11.9 Type 2 diabetes mellitus without complications; Z79.84 Long term (current) use of oral hypoglycemic drugs
CPT/HCPCS: 36415; 80053; 96365; 96375; 99284; 74176; 81003; 81015; 85025; J0131; J1885

== ENCOUNTER 2024-10-28 17:27 | Emergency (ER) | payer MEDICARE, SELFPAY ==
[2024-10-28] VITALS (16 sets, daily range): BP systolic 151–201; BP diastolic 79–101; PULSE 55–74; RESP 16–20; TEMP 36.3; O2SAT 82–99
--- NOTE | 2024-10-28 17:45 | DI.RAD_ITS ---
Exam(s) XR HIP LT COMPLETE AP PELVIS XR SACROILIAC JOINTS XR LUMBAR SPINE AP, LAT EXAM: XR LUMBAR SPINE AP, LAT CLINICAL HISTORY: low back pain. TECHNIQUE: 2D digital imaging was performed. Three views of the lumbar spine. Two views of the pelvis. Three views of the SI joints. COMPARISON: CT CT RENAL COLIC WO from 10/26/2024 CR XR HIP LT COMPLETE AP PELVIS from 10/28/2024 CR XR SACROILIAC JOINTS from 10/28/2024 FINDINGS: BONES: No fracture or destructive lesion. Vertebral body heights are maintained. There are endplate osteophytes throughout. There prompt facet joint degenerative changes at L4-5 and L5-S1. The SI joints show mild degenerative changes. Other no bony erosions. The hip joint spaces are maintained. There is mild bilateral acetabular spurring. DISKS: There is mild narrowing of the L4-5 disc space and moderate narrowing of the L5-S1 disc space. The remaining intervertebral disc spaces are maintained. ALIGNMENT: Lumbar spinal alignment is within normal limits. SOFT TISSUE: Normal. IMPRESSION: Degenerative disc changes and facet degenerative changes in the lumbar spine, greatest at L4-5 and L5-S1. Mild degenerative changes of the SI joints and bilateral hips. DATA REPOSITORY: RADIATION DOSE DELIVERED:
[2024-10-28] MEDS: Pregabalin 100 MG CAP PO (18:07)
[2024-10-28] MEDS: Dexamethasone 4 MG TAB 8 MG PO (18:08)
[2024-10-28] MEDS: oxyCODONE 5 MG TAB (19:47)
--- NOTE | 2024-10-28 20:42 | W.ED.GENAD ---
Discharge Plan Disposition Patient Disposition: Home Condition: Stable Discharge Details Clinical Impression: Lower back pain, Arthralgia of hip, left Primary Care Provider: LETICIA QUINTERO ED Provider: Jeanne Dawkins Home Meds and New Rx's Prescriptions: New pregabalin [Lyrica] 75 mg capsule 75 mg PO BID Qty: 30 0RF oxycodone 5 mg tablet 5 mg PO Q8H PRNQty: 7 0RF No Action rabeprazole 20 mg tablet,delayed release (DR/EC) 20 mg PO DAILY atorvastatin 20 mg tablet 20 mg PO DAILY vitamin B complex [B Complex-Vitamin B12] Tablet 1 tab PO DAILY loperamide 2 mg capsule 2 mg PO DAILY metformin 500 mg tablet 1,000 mg PO BID dorzolamide-timolol (PF) 2-0.5 % drops 1 drp ophthalmic (eye) BID losartan 25 mg tablet 25 mg PO DAILY brimonidine-timolol [Combigan] 5 ML drops 1 drp Ophthalmic Q12H PRN ibuprofen 800 mg Tablet 800 mg PO Q6H PRN acetaminophen 500 mg Tablet 1,000 mg PO Q6H PRN methocarbamol 750 mg tablet 750 mg PO TID Qty: 20 0RF lidocaine [Lidoderm] 5 % adhesive patch,medicated 1 patch topical DAILY Qty: 15 0RF Rx Instructions: leave on most painful area for up to 12 hrs Discharge Instructions Additional Instructions: Start Lyrica twice daily Continue Tylenol, 650 mg every 4-6 hours You have been prescribed a few doses of oxycodone to take for severe pain. Please follow-up with your primary care provider as you need reevaluation of this ongoing condition, may benefit from outpatient MRI or referral to pain management if symptoms persist. HPI General Date/Time Provider Initiated Documentation: 10/28/24 17:28. Limitations to Documentation: no limitations. Information obtained by: patient. HPI Narrative: 69-year-old gentleman with past medical history of diabetes presents for evaluation of persistent left lower back pain. Patient has been seen at urgent care and in the emergency department for similar symptoms. Initially he thought that it was pain from a kidney stone but after his last ED visit, there is no evidence of kidney stone on imaging. The patient reports that he has been taking Motrin and Tylenol without any relief of pain.. He was unable to get into see his PCP he did see a chiropractor and reports about 10 hours of complete relief of the pain. He reports that after relief of the pain, it returned and this morning it was fairly severe and prevented him from sleeping. He localizes the pain to the middle of his left butt cheek. It will radiate around to the front of his hip. He denies any penile or testicular pain. He denies any changes in his urine. He denies any worsening of the symptoms with positional change he reports that last night when he was having severe pain he took a rubber mallet and hit himself in the bladder and reports that this did cause relief of the pain temporarily. He denies any tingling or numbness in his leg and has been walking normally. Related Data Home Medications ?Medication ?Instructions ?Recorded ?Confirmed brimonidine 0.2 %-timolol 0.5 % 1 drp ophthalmic (eye) Q12H PRN 01/13/15 10/28/24 eye drops (Combigan) acetaminophen 500 mg tablet 1,000 mg PO Q6H PRN 05/10/20 10/28/24 ibuprofen 800 mg tablet 800 mg PO Q6H PRN 05/10/20 10/28/24 atorvastatin 20 mg tablet 20 mg PO DAILY 12/29/20 10/28/24 rabeprazole 20 mg tablet,delayed 20 mg PO DAILY 12/29/20 10/28/24 release vitamin B complex (B 1 tab PO DAILY 03/14/21 10/28/24 Complex-Vitamin B12 tablet) loperamide 2 mg capsule 2 mg PO DAILY 08/08/21 10/28/24 dorzolamide 2 %-timolol 0.5 % (PF) 1 drp ophthalmic (eye) BID 07/02/24 10/28/24 eye drops metformin 500 mg tablet 1,000 mg PO BID 07/02/24 10/28/24 losartan 25 mg tablet 25 mg PO DAILY 08/31/24 10/28/24 lidocaine 5 % topical patch 1 patch topical DAILY #15 ea 10/26/24 10/28/24 (Lidoderm) methocarbamol 750 mg tablet 750 mg PO TID #20 tabs 10/26/24 10/28/24 oxycodone 5 mg tablet 5 mg PO Q8H PRN #7 tabs 10/28/24 pregabalin 75 mg capsule (Lyrica) 75 mg PO BID #30 caps 10/28/24 Previous Rx's ?Medication ?Instructions ?Recorded lidocaine 5 % topical patch 1 patch topical DAILY #15 ea 10/26/24 (Lidoderm) methocarbamol 750 mg tablet 750 mg PO TID #20 tabs 10/26/24 oxycodone 5 mg tablet 5 mg PO Q8H PRN #7 tabs 10/28/24 pregabalin 75 mg capsule (Lyrica) 75 mg PO BID #30 caps 10/28/24 Allergies Allergy/AdvReac Type Severity Reaction Status Date / Time lisinopril AdvReac Intermediate Other (See Verified 10/28/24 17:38 Comment) General Stated Complaint: Nk/Back Pain JUSTINO: 4 Exam Narrative Exam Narrative: Review of Systems: All systems reviewed & are unremarkable except as noted in HPI and below Well-developed, no acute distress NCAT PERRL, normal conjunctiva RRR Unlabored respiratory effort, clear bilaterally Nondistended abdomen , soft nontender no testicular pain No midline back tenderness step-off or deformity No pain with palpation over the SI joint or the lateral hip Full range of motion about bilateral lower extremities with 5 out of 5 strength and sensation intact, gait is normal Course Vital Signs Vital signs: Vital Signs Temperature 36.3 C L 10/28/24 17:31 Pulse 74 10/28/24 17:31 Respiratory Rate 20 10/28/24 17:31 Blood Pressure 201/101 H 10/28/24 17:31 Pulse Oximetry 96 10/28/24 17:31 Temperature 36.3 C L 10/28/24 17:31 Pulse 66 10/28/24 19:20 Respiratory Rate 16 10/28/24 18:10 Blood Pressure 151/79 H 10/28/24 19:16 Blood Pressure Mean 94 10/28/24 19:16 Blood Pressure Position Sitting 10/28/24 17:31 Pulse Oximetry 98 10/28/24 19:20 Oxygen Delivery Method Room Air 10/28/24 18:10 Oxygen Flow Rate 0 10/28/24 18:10 Medical Decision Making Emergent evaluation of persistent back pain. Patient has had some relief with chiropractic intervention, but otherwise does not seem to be getting better with any of the medications prescribed. I reviewed his last emergency department workup. Lab work, urinalysis and CT imaging that was unremarkable for any acute process. The patient was provided with some pain medication and x-ray imaging of the hip and lumbar spine was obtained. There are degenerative changes noted but no acute fractures. Given his persistent symptoms, I am recommending that he follow-up closely with his PCP for outpatient MRI imaging. He has no neurologic deficits at this time so I do not suspect acute cauda equina epidural abscess or other acute surgical emergency. The patient was discharged with Lyrica and a few doses of oxycodone for his severe pain. Recommend follow-up with PCP for any ongoing pain control needs further imaging and evaluation of this issue. [facility] All Active Problems (Updated 10/28/24 @ 19:16 by Jeanne Dawkins MD) Arthralgia of hip, left (Acute) Lower back pain (Acute) Perforation of right tympanic membrane (Acute) Otitis media, right (Acute) Degenerative joint disease of both ankles and feet (Acute) Hallux rigidus, bilateral (Acute) Gagging episode (Acute) Tubular adenoma of colon (Acute ~05/20/23) Screening for colorectal cancer (Acute) Glaucoma (Chronic) Obesity (Chronic) Obstructive sleep apnea (Chronic) Diabetes mellitus (Chronic) Headache, cluster (Acute) Chronic diarrhea (Acute) Mild memory disturbance (Acute) Wears hearing aid in right ear (Acute) Raynauds disease (Acute) GERD (gastroesophageal reflux disease) (Chronic) Type 2 diabetes mellitus (Acute) BPH w urinary obs/LUTS (Acute) Right foot infection (Acute) Tendinitis of both rotator cuffs (Acute 01/12/15) Medical History Depression Anal and rectal polyp DJD (degenerative joint disease) Head and neck cancer 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 Pulsatile tinnitus, right ear 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 Myringitis Anxiety High cholesterol HTN (hypertension) Impacted cerumen, right ear Infection of left mastoid bowl Bilateral hearing loss due to cerumen impaction Mixed hearing loss, bilateral (09/13/16) Chronic mastoiditis, left ear (09/13/16) Surgical History History of colonoscopy (~05/2023) path sent History of ear surgery ossicular reposition History of mastoidectomy Bilateral (left 1968, right 1999), right ossiculoplasty History of tonsillectomy and adenoidectomy Family History Father Cancer brain Mother Cancer lung Emphysema, unspecified Social History Smoking/Tobacco Use Status: Never Smoking risk assessment performed?: Yes Alcohol Intake: never Drug use: Never Substance use type: does not use Housing: house Pets and animals: Yes Pets and animals: dog(s) Current gender identity: male Do you feel safe at home: Yes Do you feel safe in your relationship?: Yes
--- NOTE | 2024-10-29 15:23 | NUR.NOTE ---
Access chart to get the PCP to send a prior authorization for pregabalin 75mg to be reviewed. Nursing Note:
== END 2024-10-28 19:47 | disposition home or self-care (01) ==
PROVIDERS: Emergency Provider Emergency Medicine; PCP Nurse Practitioner Family
DX: M54.50 Low back pain, unspecified (principal); M25.552 Pain in left hip; E78.00 Pure hypercholesterolemia, unspecified; E11.9 Type 2 diabetes mellitus without complications; Z79.84 Long term (current) use of oral hypoglycemic drugs
CPT/HCPCS: 99283; 72100; 72202; 73502; J8540

== ENCOUNTER → 2024-12-08 10:31 | Outpatient (BNVA) | payer MEDICARE, SELFPAY | PROVIDERS: PCP Nurse Practitioner Family; Visit Provider Nurse Practitioner Gerontology | DX: N40.1 Benign prostatic hyperplasia with lower urinary tract symptoms (principal); N13.8 Other obstructive and reflux uropathy; R32 Unspecified urinary incontinence; R39.9 Unspecified symptoms and signs involving the genitourinary system | CPT/HCPCS: 99213; 51798 ==

== ENCOUNTER 2024-12-10 11:16 | Outpatient (REF) | payer MEDICARE, SELFPAY ==
[2024-12-10 16:43] LABS: Hemoglobin A1C 7.0 % (<5.7)
[2024-12-10 22:54] LABS: PSA, Diagnostic 0.6 ng/mL (<=4.5)
== END 2024-12-10 11:17 | disposition home or self-care (01) ==
LOC: NCHCN 11:16
PROVIDERS: PCP Nurse Practitioner Family; Visit Provider Nurse Practitioner Family
DX: E11.8 Type 2 diabetes mellitus with unspecified complications (principal)
CPT/HCPCS: 83036; 84153

== ENCOUNTER → 2025-02-23 11:24 | Outpatient (BNVA) | payer MEDICARE, BC, SELFPAY | PROVIDERS: PCP Nurse Practitioner Family; Referring Provider Nurse Practitioner Family; Visit Provider Podiatrist | DX: M77.42 Metatarsalgia, left foot (principal); M21.6X2 Other acquired deformities of left foot; M79.672 Pain in left foot; I73.00 Raynaud's syndrome without gangrene | CPT/HCPCS: 99213 ==

== ENCOUNTER → 2025-04-26 00:20 | Outpatient (CLI) | payer BC, MEDICARE, SELFPAY ==
--- NOTE | 2025-04-26 09:30 | DI.US_ITS ---
APPROVED REPORT EXAM: Comprehensive 2D, Doppler, and color-flow Echocardiogram Patient Location: Out-Patient Swatch Maker: Harley Cobian RDCS (AE) Indications: Exertional dyspnea Other Information Study Quality: Adequate. Technically limited study due to body habitus. Conclusion Normal left ventricular wall thickness and chamber size. Ejection fraction is 55%. Wall motion is normal Normal right ventricular size and function Both atria are normal in size There is no structural or hemodynamically significant valvular disease Wall motion Left Ventricle The left ventricle is normal size. The left ventricular systolic function is normal. The left ventricular ejection fraction is within the normal range. There is normal left ventricular wall thickness. There is normal LV segmental wall motion. There is no ventricular septal defect visualized. LVEF is 55%. Right Ventricle The right ventricle is normal size. The right ventricular systolic function is normal. Atria The left atrium size is normal. The right atrium size is normal. The interatrial septum is intact with no evidence for an atrial septal defect. Aortic Valve The aortic valve is normal in structure. Aortic valve is trileaflet. There is no aortic valvular stenosis. Trace aortic regurgitation Mitral Valve The mitral valve is normal in structure. No evidence of mitral valve stenosis. Trace mitral regurgitation. Tricuspid Valve The tricuspid valve is normal in structure. There is no tricuspid valve stenosis. Trace tricuspid regurgitation. Pulmonic Valve The pulmonary valve is normal in structure. There is no pulmonic valvular stenosis. Trace pulmonic regurgitation. Great Vessels The aortic root is normal in size. The ascending aorta is normal in size. IVC is normal in size and collapses >50% with inspiration. Pericardium There is no pericardial effusion. 2D Dimensions IVSD d PLAX 1.00 cm M: 0.6-1.2 Ao Root d 2.69 cm M: 3.1 - 3.7 LVPW d PLAX 0.96 cm M: 0.6 - 1.2 Ao Asc Diam d 3.39 cm M: 2.6 - 3.4 LVID d PLAX 5.55 cm M: 4.2 - 5.8 LVDs 3.92 cm M: 2.5 - 4.0 LV EF Teichholz 55.6 % FS 29.33 % LV EDV (Teich) 150.5 mL LV ESV (Teich) 66.8 mL Stroke Vol Index (Teich) 36.55 M-Mode TAPSE 2.30 cm (M/F) >1.7 LV Volumes - Method of Disks (Rosario's) Single Plane 2D LV Volumes Biplane 2D LV Volumes LV EDV A4C 83.8 mL LV EDV BP 93.03 mL M: 62 - 150 LV ESV A4C 39.3 mL LV ESV BP 45.8 mL LVEF(%) A4C 53.1 % LVEF(%) BP 50.73 % M: 52 - 72 LV EDV A2C 101.6 mL LV EDV BP Index 40.44 mL/m2 M: 34 - 74 LV ESV A2C 45.2 mL SV BP LVEF(%) A2C 55.5 % SV Index LA Volume LA Length A4C 5.2 cm LA Length A2C 5.9 cm LA Area A4C s 15.67 cm2 LA Area A2C s 18.84 cm2 LA Vol A4C A-L 39.84 mL LA Vol A2C A-L 51.18 mL LA Vol Biplane A-L 47.9 mL LA Vol/BSA A4C A-L LA Vol/BSA A2C A-L LA Vol/BSA BP A-L 20.9 mL/m2 LA Vol A4C MOD 38.0 mL LA Vol A2C MOD 48.0 mL LA Vol BP MOD 45.0 mL RA Volume RA Area A4C 6.5 cm2 RA ESV A4C (A-L) 7.1mL RA Vol/BSA A4C A-L RA Length A4C 5.1 cm RA ESV A4C (MOD) 6.8mL LV Diastology MV E' medial 0.079 (>0.07 m/s) MV E Vmax 0.51 (0.4-1.3 m/s) MV E/E' MED 6.43 (<14) MV A Vmax 0.85 (0.4-1.3 m/s) MV E' lateral 0.082 (>0.1 m/s) E/A Ratio 0.6 MV E/E' LAT 6.22 (<14) MV E' Average 0.081 m/s MV E/E'(average) 6.32 Aortic Valve AoV Vmax 0.77 m/s LVOT Vmax 0.85 m/s AoV Peak Grad 2.4 mmHg LVOT Peak Grad 2.9 mmHg AoV Area (Vmax) 5.37 cm2 LVOT VTI 0.179 m AoV VTI 0.169 m LVOT Mean Grad 1.3 mmHg AoV Mean José. 0.51 m/s LVOT SV 87.25 mL AoV Mean Grad 1.2 mmHg LVOT Diam s 2.45 cm AoV Area (VTI) 5.18 cm2 AV Regurg Peak Gr. 2.40 mmHg Velocity Ratio 1.10 Mitral Valve MV DT 211 (160-240 msec) Pulmonary Valve PV Vmax 1.18 (0.5-1.5 m/s) RVOT Vmax 0.46 m/s PV Peak Grad 5.6 mmHg RVOT Peak Gr. 0.8 mmHg PV Mean José 0.91 m/s RVOT VTI 0.114 m PV Mean Grad 3.5 mmHg RVOT Mean Gr. 0.5 mmHg Tricuspid Valve TV S' 0.13 m/s
== END ==
LOC: DI 00:20
PROVIDERS: PCP Nurse Practitioner Family; Visit Provider Nurse Practitioner Family
DX: R06.09 Other forms of dyspnea (principal); R07.9 Chest pain, unspecified; R00.2 Palpitations; G47.33 Obstructive sleep apnea (adult) (pediatric)
CPT/HCPCS: 93306

== ENCOUNTER 2025-04-29 10:04 | Outpatient (RCR) | payer BC, MEDICARE, SELFPAY ==
--- NOTE | 2025-05-04 09:35 | W.HOLTRPT ---
Date of service: 05/04/25 Time of Service: 09:35 Holter Monitor Report Referring Provider:: Sherrie Webb Indications:: Palpitations Holter Monitor Note: This is a 48-hour Holter monitor. Rhythm throughout is sinus with an average heart rate of 71. Minimum was 47, maximum 108 A total of 11 premature ventricular contractions were recorded. There were 171 atrial premature beats. There was 1 atrial triplet. There was no atrial fibrillation, no high-grade AV block, no pauses greater than 3 seconds. Reported symptoms correlated to sinus rhythm, rate 70 to 80 bpm
== END 2025-05-12 23:59 | disposition home or self-care (01) ==
LOC: CARDOPNVT 10:04
PROVIDERS: PCP Nurse Practitioner Family; Visit Provider Internal Medicine Cardiovascular Disease
DX: R00.2 Palpitations (principal); I49.3 Ventricular premature depolarization; I49.1 Atrial premature depolarization
CPT/HCPCS: 93225; 93226